=== PATIENT | male | born 1955 | race Caucasian/White ===

== ENCOUNTER → 2017-10-15 14:46 | Outpatient (CLI) | payer OTHER, MEDICAID, SELFPAY ==
--- NOTE | 2017-10-15 | DI.RAD.S_ITS ---
PROCEDURE: XR LUMBAR SPINE 2-3V INDICATIONS: MALIGNANT NEOPLASM OF LUNG, BACK PAIN TECHNIQUE: 3 views of the lumbar spine were acquired. COMPARISON: [facility], , -SPINE 2-3 VIEWS, 02/16/2017, 12:50. FINDINGS: Bones: 5 [id number] vertebrae are present. There is trace retrolisthesis of L1 on L2, L2 on L3, L3 on L4, L4 and L5 and L5 on S1. No vertebral body compression fractures. No suspicious bony lesions. Multilevel mild to moderate disc space narrowing is present. Prominent foraminal narrowing is present at L2-3 and L5-S1, minimally progressive compared to prior exam. Soft tissues: Overlying bowel gas pattern is normal. No suspicious soft tissue calcifications. IMPRESSION: Degenerative changes most prominent at L5-S1 as above. No visualized osseous metastatic disease. Dictated by: Alexandra Cast M.D. on 10/15/2017 at 16:47 Approved by: Alexandra Cast M.D. on 10/15/2017 at 16:49
--- NOTE | 2017-10-15 | DI.RAD.S_ITS ---
PROCEDURE: XR CHEST 2V INDICATIONS: MALIGNANT NEOPLASM OF LUNG, BACK PAIN TECHNIQUE: 2 views of the chest were acquired. COMPARISON: [facility], [place], [place] PET CT FUSION SKULL 2 THIGH, 09/29/2017, 15:50. [facility], CT, CHEST/ABD/PEL WITH CONTRAST, 06/25/2017, 11:57. [facility], CR, XR CHEST 2V, 08/04/2017, 15:19. FINDINGS: Surgical changes and devices: Left Port-A-Cath as well as cervical fixation hardware is present. Lungs and pleura: Bilateral chronic interstitial changes are present. There is persistent appearance of focal right upper lobe opacity, unchanged. Mediastinum: Mediastinal contours are normal. Heart size is normal. Bones and chest wall: No suspicious bony abnormalities. Soft tissues appear unremarkable. IMPRESSION: Stable interval exam demonstrating chronic interstitial changes. Dictated by: Alexandra Cast M.D. on 10/15/2017 at 16:46 Approved by: Alexandra Cast M.D. on 10/15/2017 at 16:47
== END ==
PROVIDERS: Visit Provider Nurse Practitioner Gerontology
DX: C34.90 Malignant neoplasm of unspecified part of unspecified bronchus or lung (principal); M54.9 Dorsalgia, unspecified
CPT/HCPCS: 71046; 72100

== ENCOUNTER → 2017-11-15 14:41 | Outpatient (CLI) | payer OTHER, MEDICAID, SELFPAY ==
--- NOTE | 2017-11-24 16:05 | PC.NURSE ---
SO called stating pt needs refill on his synthroid. Preferred pharm is [facility] and set up for escribe.
== END ==
PROVIDERS: Visit Provider Nurse Practitioner Gerontology
DX: C79.51 Secondary malignant neoplasm of bone (principal); C80.1 Malignant (primary) neoplasm, unspecified; M85.851 Other specified disorders of bone density and structure, right thigh; E07.9 Disorder of thyroid, unspecified; F17.210 Nicotine dependence, cigarettes, uncomplicated; Z85.118 Personal history of other malignant neoplasm of bronchus and lung
CPT/HCPCS: 77080

== ENCOUNTER → 2017-12-30 12:09 | Outpatient (CLI) | payer OTHER, MEDICAID, SELFPAY ==
--- NOTE | 2017-12-30 12:13 | DI.RAD.S_ITS ---
PROCEDURE: XR HIP W PEL IF DONE RT 2V INDICATIONS: pain TECHNIQUE: AP pelvis with lateral view(s) of the right hip(s). COMPARISON: [facility], CT, CHEST/ABD/PEL WITH CONTRAST, 06/25/2017, 11:57. FINDINGS: Bones: No fractures or dislocations. Pelvic ring appears intact. No suspicious bony lesions. Bilateral moderate degeneration. There is prominent bilateral hip spurring. Lower lumbar spine discogenic changes. Soft tissues: The visualized bowel gas pattern is normal. No suspicious soft tissue calcifications. IMPRESSION: Moderate bilateral hip joint degeneration. Dictated by: Esau Kidd M.D. on 12/30/2017 at 12:53 Approved by: Esau Kidd M.D. on 12/30/2017 at 12:55
--- NOTE | 2017-12-30 12:13 | DI.RAD.S_ITS ---
PROCEDURE: XR CHEST 2V INDICATIONS: pain TECHNIQUE: 2 views of the chest were acquired. COMPARISON: [facility], CR, XR CHEST 2V, 10/15/2017, 14:31. FINDINGS: Surgical changes and devices: Left chest port is unchanged the tip projecting at the upper SVC. Cervical spine fixation hardware Lungs and pleura: No pleural effusions or pneumothorax. Redemonstration of right upper lobe consolidation, with grossly unchanged appearance of 10/15/17. No definite new focal consolidations seen. There is right lung architectural distortion and volume loss as before. No pleural effusion. No pneumothorax. Mediastinum: Mediastinal contours are normal. Heart size is normal. Bones and chest wall: Multiple left rib fractures as before. No suspicious bony abnormalities. Soft tissues appear unremarkable. IMPRESSION: Overall, grossly unchanged examination since 10/15/17 . No new consolidation. Dictated by: Esau Kidd M.D. on 12/30/2017 at 12:51 Approved by: Esau Kidd M.D. on 12/30/2017 at 12:53
== END ==
PROVIDERS: Visit Provider Internal Medicine Hematology & Oncology
DX: M16.0 Bilateral primary osteoarthritis of hip (principal); R07.9 Chest pain, unspecified; S22.42XD Multiple fractures of ribs, left side, subsequent encounter for fracture with routine healing
CPT/HCPCS: 71046; 73502

== ENCOUNTER 2018-01-11 10:06 | Inpatient (IN) | payer OTHER, MEDICAID, SELFPAY ==
[2018-01-11] VITALS (15 sets, daily range): BP systolic 97–131; BP diastolic 43–79; PULSE 58–100; RESP 9–29; TEMP 36.7–36.9; O2SAT 95–99; BMI 17.8
--- NOTE | 2018-01-11 10:10 | ED.SOB ---
HPI - SOB/Dyspnea General Chief Complaint: Shortness of Breath/Dyspnea Stated Complaint: SOB Time Seen by Provider: 01/11/18 10:10 Source: patient, family, EMS, RN notes reviewed and old records reviewed Mode of arrival: EMS Limitations: no limitations History of Present Illness Patient is a 62-year-old male with known unresectable right lung adenocarcinoma currently being treated with immunotherapy have. He presents today with increasing shortness of breath. His states that he has had a productive cough for about the last 5 days and increasing weakness. EMS arrived he had decreasing oxygen levels and 80%. The 25 min EMS ride how he received a constant albuterol treatment by the time he arrived to the emergency department he is overall feeling, however still weak. He is holding can't get warm he denies fever MD Complaint: cough Related Data Home Medications Medication Instructions Recorded Confirmed magnesium oxide 400 mg PO QDAY #0 12/04/15 01/11/18 hydroxyzine HCl 25 - 50 mg PO Q6H PRN 08/20/17 01/11/18 Previous Rx's Medication Instructions Recorded ipratropium-albuterol [Combivent 1 puff INH Q6HP PRN #1 inh 04/13/16 Respimat] [DISABLED PARKING ] 1 ea X1 #1 ea 04/29/16 polyethylene glycol 3350 [Miralax] 17 gm PO QDAY #30 packet 06/10/16 lactulose 20 gm PO QDAY #200 ml 01/25/17 acetaminophen 650 mg PO Q8H #30 tab 02/16/17 esomeprazole magnesium 20 mg PO QDAY #30 cap 06/25/17 citalopram [Celexa] 20 mg PO DAILY #90 tab 10/29/17 pregabalin [Lyrica] 50 mg PO TID #90 cap 10/29/17 morphine [MS Contin] 60 mg PO Q12H #60 tab 11/18/17 albuterol sulfate [Ventolin HFA] 1 puff INH Q6H #8 gm 11/25/17 levothyroxine [Synthroid] 125 mcg PO DAILY #90 tab 11/25/17 Allergies Allergy/AdvReac Type Severity Reaction Status Date / Time aspirin [ASPIRIN] AdvReac Mild NAUSEA Unverified 07/14/17 12:15 Review of Systems Review of Systems All systems reviewed & are unremarkable except as noted in HPI and below Constitutional Reports body ache(s), Reports fatigue, Denies fever(s) and Reports weakness Eyes Denies change in vision, Denies eye discharge, Denies irritation and Denies loss of vision ENT Ears, Nose, Mouth, and Throat: Denies change in voice, Denies neck pain and Denies sore throat Cardiovascular Denies chest pain, Denies irregular heart rhythm, Denies lightheadedness, Denies palpitations, Denies dyspnea, Denies dyspnea on exertion and Denies orthopnea Respiratory Denies cough, Denies dyspnea, Denies dyspnea on exertion and Denies wheezing Musculoskeletal Denies neck pain Neurologic Denies loss of vision and Reports weakness Endocrine Reports fatigue and Denies palpitations Allergic/Immunologic Denies wheezing PFSH Medical History DVT of upper extremity (deep vein thrombosis) (Acute) Hypothyroid (Acute) Lung cancer, primary, with metastasis from lung to other site (Acute) Social History Smoking Status: Current every day smoker Exam Initial Vital Signs Initial Vital Signs: Vital Signs Temperature 98.3 F 01/11/18 10:16 Pulse Rate 100 H 01/11/18 10:16 Respiratory Rate 29 H 01/11/18 10:16 Blood Pressure 101/62 01/11/18 10:16 Pulse Oximetry 98 01/11/18 10:16 Const General: ill appearing (chronic) Nutritional Appearance: cachectic Orientation: alert, awake and oriented x3 HENMT Head: normal to inspection and normocephalic Ears: hearing grossly normal bilaterally Eyes General: appearance normal, both eyes and all related structures Neck Neck: normal visual inspection, full ROM and no meningeal signs Chest Chest: normal inspection of the chest Resp Effort & Inspection: normal respiratory effort, able to speak in complete sentences and not labored Auscultation: clear to auscultation bilaterally, diminished lung sounds on the right in the upper lung monte and wheezes scattered wheezes Cardio Rate: regular rate Rhythm: regular rhythm Heart Sounds: no click, no gallops, no murmurs and no rubs Pulses: normal peripheral pulses GI Inspection: non-distended Palpation: soft, no hepatosplenomegaly, No guarding, No pulsatile mass and No tender Auscultation: normal bowel sounds Skin General: no rashes or lesions noted, No jaundice and No petechiae Neuro General: alert, oriented x3, gait normal and no focal motor deficits Speech: speech normal Course Orders Ordered: ED Orders 01/11/18 10:13 CT angio chest PE protocol Stat EKG-12 Lead Stat 01/11/18 10:14 Lactate (Lactic Acid) Stat 01/11/18 10:40 Complete Blood Count AUTO DIFF Stat Comprehensive Metabolic Panel Stat Partial Thromboplastin Time Stat Prothrombin Time INR Stat Troponin & CK Cardiac Panel Stat 01/11/18 10:50 Blood Culture Stat Sodium Chloride (Normal Saline 0.9%) 1,000 mls @ 200 mls/hr IV CONT RENO Last Infusion: 01/11/18 12:42 Dose: 0 mls/hr Admin: 01/11/18 10:49 Dose: 200 mls/hr Levofloxacin (Levaquin) 750 mg in 150 mls @ 100 mls/hr IV NOW ONE Stop: 01/11/18 13:44 Last Admin: 01/11/18 12:42 Dose: 100 mls/hr Sodium Chloride (Normal Saline 0.9%) 1,000 mls @ 1,000 mls/hr IV BOLUS ONE Stop: 01/11/18 13:37 Last Admin: 01/11/18 12:42 Dose: 1,000 mls/hr Discontinued Medications Albuterol/Ipratropium (Duoneb) 3 ml INH NOW ONE Stop: 01/11/18 10:14 Last Admin: 01/11/18 10:40 Dose: 3 ml Methylprednisolone (Solu-Medrol 125 Mg Vial) 125 mg IV NOW ONE Stop: 01/11/18 10:14 Last Admin: 01/11/18 10:49 Dose: 125 mg Morphine Sulfate (Morphine) 2 mg IV NOW ONE Stop: 01/11/18 12:39 Last Admin: 01/11/18 12:42 Dose: 2 mg Vital Signs - 8 hr 01/11/18 10:16 01/11/18 10:40 01/11/18 10:53 Temperature 98.3 F Pulse Rate 100 H 85 82 Respiratory Rate 29 H 21 26 H Blood Pressure 101/62 Blood Pressure [Right Arm] 101/62 Pulse Oximetry 98 99 97 01/11/18 11:32 01/11/18 12:00 01/11/18 12:33 Temperature Pulse Rate 82 80 79 Respiratory Rate 22 11 L Blood Pressure Blood Pressure [Right Arm] 100/52 L 97/48 L 101/43 L Pulse Oximetry 98 96 01/11/18 12:34 Temperature Pulse Rate 86 Respiratory Rate 9 L Blood Pressure Blood Pressure [Right Arm] 101/43 L Pulse Oximetry 97 MDM - SOB/Dyspnea Lab Data Attestation: I reviewed the patient's lab results. Result diagrams: 01/11/18 10:40 01/11/18 10:40 Lab Results 01/11/18 01/11/18 01/11/18 Range/Units 10:14 10:40 10:40 WBC (4.5-11.0) X10^3/uL RBC (4.5-5.9) X10^6/uL Hgb (13.5-17.5) g/dL Hct (41-53) % MCV (80-100) fL MCH (26-34) PG MCHC (30-36) % RDW (11.6-14.8) % Plt Count (150-400) X10^3/uL Neut % (Auto) (50-75) % Lymph % (Auto) (25-40) % [place] % (Auto) (3-14) % Eos % (Auto) (2-4) % Baso % (Auto) (0-2) % Neut # (Auto) (7067-7462) /uL PT 14.3 H (10.1-12.7) SECONDS INR 1.3 (0.9-1.3) APTT 29 (26.4-36.2) SECONDS Sodium 137 (137-145) mmol/L Potassium 3.5 (3.4-5.1) mmol/L Chloride 100 (98-107) mmol/L Carbon Dioxide 29 (22-32) mmol/L BUN 13 (9-20) mg/dL Creatinine 0.80 (0.66-1.25) mg/dL Estimated GFR > 60.0 (>60) mL/min BUN/Creatinine Ratio 16.3 (6-22) Glucose 113 H (80-110) mg/dL Lactate 2.2 H (0.7-2.1) mmol/L Calcium 8.3 L (8.4-10.2) mg/dL Total Bilirubin 0.7 (0.2-1.3) mg/dL AST 44 (17-59) IU/L ALT 45 (21-72) IU/L Alkaline Phosphatase 156 H (38-126) U/L Total Creatine Kinase < 20 L (55-170) U/L CK-MB (CK-2) TNP CK-MB (CK-2) Rel Index TNP Troponin I < 0.012 (0.01-0.034) ng/mL Total Protein 6.4 (6.3-8.2) g/dL Albumin 2.9 L (3.5-5.0) g/dL Globulin 3.5 (1.7-4.1) g/dL Albumin/Globulin Ratio 0.8 L (1.0-2.8) 01/11/18 Range/Units 10:40 WBC 7.9 (4.5-11.0) X10^3/uL RBC 4.19 L (4.5-5.9) X10^6/uL Hgb 11.9 L (13.5-17.5) g/dL Hct 36.0 L (41-53) % MCV 86.0 (80-100) fL MCH 28.5 (26-34) PG MCHC 33.2 (30-36) % RDW 14.4 (11.6-14.8) % Plt Count 559 H (150-400) X10^3/uL Neut % (Auto) 84.3 H (50-75) % Lymph % (Auto) 12.0 L (25-40) % [place] % (Auto) 3.2 (3-14) % Eos % (Auto) 0.2 L (2-4) % Baso % (Auto) 0.3 (0-2) % Neut # (Auto) 6600 H (0278-0362) /uL PT (10.1-12.7) SECONDS INR (0.9-1.3) APTT (26.4-36.2) SECONDS Sodium (137-145) mmol/L Potassium (3.4-5.1) mmol/L Chloride (98-107) mmol/L Carbon Dioxide (22-32) mmol/L BUN (9-20) mg/dL Creatinine (0.66-1.25) mg/dL Estimated GFR (>60) mL/min BUN/Creatinine Ratio (6-22) Glucose (80-110) mg/dL Lactate (0.7-2.1) mmol/L Calcium (8.4-10.2) mg/dL Total Bilirubin (0.2-1.3) mg/dL AST (17-59) IU/L ALT (21-72) IU/L Alkaline Phosphatase (38-126) U/L Total Creatine Kinase (55-170) U/L CK-MB (CK-2) CK-MB (CK-2) Rel Index Troponin I (0.01-0.034) ng/mL Total Protein (6.3-8.2) g/dL Albumin (3.5-5.0) g/dL Globulin (1.7-4.1) g/dL Albumin/Globulin Ratio (1.0-2.8) Imaging Data ct angio pe: Radiologist's impression: PROCEDURE: CT ANGIO CHEST PE PROTOCOL INDICATIONS: SOB with lung cancer TECHNIQUE: After the administration of intravenous contrast, 2 mm thick sections acquired from the pulmonary apices to the posterior costophrenic angles. 3-dimensional maximum intensity projection (MIP) coronal and sagittal reformats were then acquired through the thorax. For radiation dose reduction, the following was used: automated exposure control, adjustment of mA and/or kV according to patient size. COMPARISON: [facility], CT, CHEST/ABD/PEL WITH CONTRAST, 06/25/2017, 11:57. [place], [place], [place] PET CT FUSION SKULL 2 THIGH, 09/29/2017, 15:50. FINDINGS: Image quality: Excellent. Pulmonary arteries: Pulmonary arteries demonstrate no intraluminal filling defects to suggest central pulmonary embolism. Mild enlargement of main pulmonary artery is seen and measures up to 3.4 cm in diameter which may represent mild pulmonary vascular hypertension. Lungs and pleura: Compared to previous CT study of the chest abdomen and pelvis, there is interval development of large cavitary space occupying nearly entire right upper lobe with air-fluid level in internal and nodular densities measures up to 2.1 x 1.5 cm in size. Adjacent scarring/atelectasis in right lung is seen. Ill-defined air space consolidations are noted in posterior aspect of bilateral lower lobe suspicious for patchy infiltrate/atelectasis. Emphysematous changes in bilateral lung monte are seen. Central and left peripheral airways are patent. Right middle and lower lobe airway is patent. Narrowing of right upper lobe bronchus distally is noted with internal soft tissue density in its dependent portion which may represent inflammatory debris versus malignant mass in distal right upper lobe bronchus and postobstructive atelectasis of right upper lobe. No pleural effusion or pneumothorax is seen. 7 mm nodular density adjacent to lateral pleura of the right lower lobe posterior to major fissure is seen series 5 image 48. Mediastinum: Heart size is no enlarged rmal, without pericardial effusion. There is subcarinal and right hilar adenopathy measures up to 1.4 cm in short axis diameter in the right hilar region and 1.8 cm in short axis diameter in subcarinal space. Mediastinal shift to the right is seen. Thoracic aorta is normal in caliber and enhancement. Esophagus is normal in caliber, with a moderate-sized hiatal hernia. Bones and chest wall: Mottled appearance of right posterior fifth rib is seen suggestive of metastatic disease involving fifth rib. Subacute to chronic appearing fracture involving right posterior sixth rib and right posterior lateral seventh rib are noted, which may represent pathologic fracture. Ribs and thoracic spine appear intact throughout. Thyroid gland is within normal limits. No axillary or supraclavicular adenopathy. Abdomen: Visualized upper abdominal solid organs appear normal in the early arterial phase of enhancement. 5.2 x 3.9 cm right renal cyst is seen, grossly unchanged from previous study. IMPRESSION: 1. No evidence of pulmonary emboli. No thoracic aortic aneurysm or gross dissection. A mildly enlarged main pulmonary trunk, which may represent mild pulmonary vascular hypertension. 2. Interval development of large cavitary space occupying nearly entire right upper lobe with internal soft tissue density nodule and air-fluid level. Malignant process is suspected given patient's history. 3. Additional air space opacity scattered in the posterior aspect of bilateral lower lobes more prominent on the left side suggestive of patchy infiltrate/atelectasis. No pleural effusion or pneumothorax. 4. There is narrowing of mid to distal right upper lobe bronchus with internal soft tissue density which may represent inflammatory material versus malignancy within the airway causing post obstructive atelectasis of right upper lobe. Rest of the airways are patent. 5. Emphysematous changes in bilateral lung monte. Nonspecific 7 mm nodular density adjacent to lateral pleura of the right lower lobe. 6. Enlarged mediastinal and right hilar lymph nodes suggestive of metastatic adenopathy. 7, metastatic disease involving right posterior fifth rib and possibly sixth and seventh ribs with possible pathologic fractures involving right posterior lateral sixth and seventh ribs. Dictated by: Ari Michael M.D. on 01/11/2018 at 11:32 ECG Data Attestation: I personally reviewed and interpreted this ECG as follows: Prior ECG tracings: available for review Interpretation: Sinus arrhythmia rate [address] changes no T-wave inversions similar to previous EKG MDM Narrative Medical decision making narrative: Patient has low blood pressure was slightly elevated lactic acid of 2.2. He does have a history of orthostatic hypotension and his a previous documents suggesting do not have enough intake. He overall feels weak and lethargic. CT does suggest possible lower pneumonia. He has not needed oxygen is since he has been here he has only received 1 albuterol treatment but did receive quite a bit with EMS. Patient remains a full code at this time Dr. Mejias updated patient's symptoms test results and agrees with inpatient. Discharge Plan Departure Patient Disposition: Admitted As Inpatient Clinical Impression: Pneumonia Admit Date/Time: 01/11/18 12:31 Admit Provider: Ema Mejias
--- NOTE | 2018-01-11 10:13 | DI.CT.S_ITS ---
PROCEDURE: CT ANGIO CHEST PE PROTOCOL INDICATIONS: SOB with lung cancer TECHNIQUE: After the administration of intravenous contrast, 2 mm thick sections acquired from the pulmonary apices to the posterior costophrenic angles. 3-dimensional maximum intensity projection (MIP) coronal and sagittal reformats were then acquired through the thorax. For radiation dose reduction, the following was used: automated exposure control, adjustment of mA and/or kV according to patient size. COMPARISON: [facility], CT, CHEST/ABD/PEL WITH CONTRAST, 06/25/2017, 11:57. [facility], [place], [place] PET CT FUSION SKULL 2 THIGH, 09/29/2017, 15:50. FINDINGS: Image quality: Excellent. Pulmonary arteries: Pulmonary arteries demonstrate no intraluminal filling defects to suggest central pulmonary embolism. Mild enlargement of main pulmonary artery is seen and measures up to 3.4 cm in diameter which may represent mild pulmonary vascular hypertension. Lungs and pleura: Compared to previous CT study of the chest abdomen and pelvis, there is interval development of large cavitary space occupying nearly entire right upper lobe with air-fluid level in internal and nodular densities measures up to 2.1 x 1.5 cm in size. Adjacent scarring/atelectasis in right lung is seen. Ill-defined air space consolidations are noted in posterior aspect of bilateral lower lobe suspicious for patchy infiltrate/atelectasis. Emphysematous changes in bilateral lung monte are seen. Central and left peripheral airways are patent. Right middle and lower lobe airway is patent. Narrowing of right upper lobe bronchus distally is noted with internal soft tissue density in its dependent portion which may represent inflammatory debris versus malignant mass in distal right upper lobe bronchus and postobstructive atelectasis of right upper lobe. No pleural effusion or pneumothorax is seen. 7 mm nodular density adjacent to lateral pleura of the right lower lobe posterior to major fissure is seen series 5 image 48. Mediastinum: Heart size is no enlarged rmal, without pericardial effusion. There is subcarinal and right hilar adenopathy measures up to 1.4 cm in short axis diameter in the right hilar region and 1.8 cm in short axis diameter in subcarinal space. Mediastinal shift to the right is seen. Thoracic aorta is normal in caliber and enhancement. Esophagus is normal in caliber, with a moderate-sized hiatal hernia. Bones and chest wall: Mottled appearance of right posterior fifth rib is seen suggestive of metastatic disease involving fifth rib. Subacute to chronic appearing fracture involving right posterior sixth rib and right posterior lateral seventh rib are noted, which may represent pathologic fracture. Ribs and thoracic spine appear intact throughout. Thyroid gland is within normal limits. No axillary or supraclavicular adenopathy. Abdomen: Visualized upper abdominal solid organs appear normal in the early arterial phase of enhancement. 5.2 x 3.9 cm right renal cyst is seen, grossly unchanged from previous study. IMPRESSION: 1. No evidence of pulmonary emboli. No thoracic aortic aneurysm or gross dissection. A mildly enlarged main pulmonary trunk, which may represent mild pulmonary vascular hypertension. 2. Interval development of large cavitary space occupying nearly entire right upper lobe with internal soft tissue density nodule and air-fluid level. Malignant process is suspected given patient's history. 3. Additional air space opacity scattered in the posterior aspect of bilateral lower lobes more prominent on the left side suggestive of patchy infiltrate/atelectasis. No pleural effusion or pneumothorax. 4. There is narrowing of mid to distal right upper lobe bronchus with internal soft tissue density which may represent inflammatory material versus malignancy within the airway causing post obstructive atelectasis of right upper lobe. Rest of the airways are patent. 5. Emphysematous changes in bilateral lung monte. Nonspecific 7 mm nodular density adjacent to lateral pleura of the right lower lobe. 6. Enlarged mediastinal and right hilar lymph nodes suggestive of metastatic adenopathy. 7, metastatic disease involving right posterior fifth rib and possibly sixth and seventh ribs with possible pathologic fractures involving right posterior lateral sixth and seventh ribs. Dictated by: Ari Michael M.D. on 01/11/2018 at 11:32 Approved by: Ari Michael M.D. on 01/11/2018 at 11:50
[2018-01-11] MEDS: ALBUTEROL/IPRATROPIUM 3 ML AMPUL INH ×2 (10:40→19:58)
[2018-01-11] MEDS: SODIUM CHLORIDE 0.9% 1,000 ML 200 ML IV (10:49)
[2018-01-11] MEDS: methylPREDNISolone 125 MG/2 ML VIAL IV (10:49)
--- NOTE | 2018-01-11 10:52 | PC.NURSE ---
easier respirations, lungs clear/ decreased left lower, after rt treatment
[2018-01-11 10:56] LABS: Add Manual Diff / Slide Review NO; Basophils Percent Auto 0.3 % (0-2); Eosinophils Percent Auto 0.2 % (2-4); Hemoglobin 11.9 g/dL (13.5-17.5); Mean Corpuscular HGB Conc 33.2 % (30-36); Mean Corpuscular Hemoglobin 28.5 PG (26-34); Monocytes Percent Auto 3.2 % (3-14); Neutrophils Absolute Auto 6600 /uL (3000-5900); Neutrophils Percent Auto 84.3 % (50-75); Platelet Count 559 X10^3/uL (150-400); Red Blood Cell Count 4.19 X10^6/uL (4.5-5.9); Red Cell Distribution Width 14.4 % (11.6-14.8); White Blood Cell Count 7.9 X10^3/uL (4.5-11.0)
[2018-01-11 11:01] LABS: INR 1.3 (0.9-1.3); Prothrombin Time 14.3 SECONDS (10.1-12.7)
[2018-01-11 11:04] LABS: PTT Partial Thromboplastin Tim 29 SECONDS (26.4-36.2)
[2018-01-11 11:06] LABS: Alanine Aminotransferase 45 IU/L (21-72); Albumin 2.9 g/dL (3.5-5.0); Albumin Globulin Ratio 0.8 (1.0-2.8); Alkaline Phosphatase 156 U/L (38-126); Aspartate Aminotransferase 44 IU/L (17-59); BUN Creatinine Ratio 16.3 (6-22); Bilirubin Total 0.7 mg/dL (0.2-1.3); Blood Urea Nitrogen 13 mg/dL (9-20); Calcium 8.3 mg/dL (8.4-10.2); Carbon Dioxide 29 mmol/L (22-32); Chloride 100 mmol/L (98-107); Creatine Kinase < 20 U/L (55-170); Estimated Glomerular Filt Rate > 60.0 mL/min (>60); Globulin 3.5 g/dL (1.7-4.1); Glucose 113 mg/dL (80-110); HEMOLYSIS < 15 (0-50); Potassium 3.5 mmol/L (3.4-5.1); Sodium 137 mmol/L (137-145); Total Protein 6.4 g/dL (6.3-8.2)
[2018-01-11 11:18] LABS: Troponin I < 0.012 ng/mL (0.01-0.034)
[2018-01-11 11:51] LABS: Lactate (Lactic Acid) 2.2 mmol/L (0.7-2.1)
[2018-01-11] MEDS: SODIUM CHLORIDE 0.9% 1,000 ML 1000 ML IV (12:42)
[2018-01-11] MEDS: levoFLOXacin 750 MG/150 ML PIGGYBACK 100 MG IV (12:42)
[2018-01-11] MEDS: MORPHINE 2 MG/ML INJ IV (12:42)
--- NOTE | 2018-01-11 15:36 | PC.NURSE ---
Admit: Late entry Arrived to room 231 approx 1415. Able to scoot himself from stretcher to bed. Indep with bed mobility. Reports some shortness of breath at rest. Does not appear in any distress, RR in the teens. SpO2 on RA 95-96%, cont pulse ox in place as ordered. Lungs CTA, dim throughout. Intermittent dry sounding cough. Reports chronic back pain and history of recent falls. Fall precautions in place. Urinal at bedside, instructed to call for assist if needing to get OOB. Oriented to room and call light, bed alarm on.
[2018-01-11 15:43] LABS: Reflexed Lactate in 2 Hours Y
[2018-01-11 16:31] LABS: Lactate 2HR (Lactic Acid Rflx) 1.7 mmol/L (0.7-2.1)
--- NOTE | 2018-01-11 17:00 | PM.HP.1 ---
History of Present Illness Date Patient Seen: 01/11/18 Chief complaint: SOB Narrative: On January 28, 2015 chest x-ray was performed to investigate his chest pain, and this showed a large right upper lobe mass measuring 6 cm. He was seen in the emergency department multiple times for chest pain since. CTA scan on April 01, 2015 showed 6 x 6.9 cm transverse mass lesion with erosion of the posterior right 3rd, 4th, and minimal 5th ribs. On April 17, 2015, patient underwent CT-guided right lung upper lobe mass and the pathology showed poorly differentiated carcinoma most consistent with adenocarcinoma involving the transverse process of T3 and T4. A 2nd CT-guided right upper lung mass biopsy was performed on May 23, 2015 that showed necrotic tissue with poorly differentiated features. It did not show any features to suggest mesothelioma. His lung cancer was staged T4b N0 M0 (stage IIIA). He was started on cisplatin 75 mg per sq meter and Alimta 500 mg per sq meter every 3 weeks with support of injection of vitamin B12 and Neulasta, on 05/13/2015, together with radiation. He completed 6 cycles of cisplatin/pemetrexed said on August 30, 2015. CT scan of the chest abdomen and pelvis on June 24, 2019 16 showed interval progression of posterior right upper lobe mass with adjacent rib destruction and multiple enlarged left cervical and left parapharyngeal lymphadenopathy without evidence of metastasis in the abdomen or pelvis. Patient therefore underwent biopsy of the left neck node which again showed very poorly differentiated carcinoma with the margins indeterminate. Subsequent molecular testing indicated a 90% probability of this being a lung primary. Patient underwent palliative radiotherapy to the neck lymph nodes. Molecular testing of his cancer has been negative for ALK, EGFR, and ROS1. On October 18, [address] scan of the abdomen and pelvis that showed interval development of large retrocrural mass presumably progressive metastatic lymphadenopathy since previous scan. Additional progression in size and number of sub city cm retroperitoneal lymph nodes were seen. On November 04, 2015 patient underwent thoracic spine CT scan that showed marked interval progression of multi focal paraspinal metastatic disease including new pathologic fracture at T7 and associated 20% anterior height vertebral body loss. He was then started on Nivolumab 11/06/2015. Patient has responded dramatically to nivolumab. On February 07, 2016, follow-up scans were performed. CT scan of the neck showed no suspicious adenopathy or abnormal enhancement in the neck. The metastatic lymph nodes in the left side of the neck and abnormal soft tissue in the left tonsillar fossa had resolved since previous imaging studies. CT scan of the chest abdomen and pelvis showed markedly abnormal posterior mediastinal mass had decreased in size without new adenopathy, the retrocrural abnormal soft tissue had markedly decreased in size. Most recent CT scan of the chest abdomen and pelvis were performed on June 25, 2017. Overall, stable examination without specific evidence of active metastatic disease. Unchanged right lung volume loss and posterior upper lung consolidation and presumed post therapeutic changes. Patient reports he became short of breath with coughing few days ago. He noted that last night he felt like he was drowning. He has had no fever. He does have intermittent chills. He has a cough with productive yellow phlegm. He has no hemoptysis. Patient has lost about 32 lb over the past 3 years. He was seen and evaluated in the emergency department. Patient was found to have a CT scan which showed the following: No evidence of pulmonary emboli. No thoracic aortic aneurysm or gross dissection. A mildly enlarged main pulmonary trunk, which may represent mild pulmonary vascular hypertension. 2. Interval development of large cavitary space occupying nearly entire right upper lobe with internal soft tissue density nodule and air-fluid level. Malignant process is suspected given patient's history. 3. Additional air space opacity scattered in the posterior aspect of bilateral lower lobes more prominent on the left side suggestive of patchy infiltrate/atelectasis. No pleural effusion or pneumothorax. 4. There is narrowing of mid to distal right upper lobe bronchus with internal soft tissue density which may represent inflammatory material versus malignancy within the airway causing post obstructive atelectasis of right upper lobe. Rest of the airways are patent. 5. Emphysematous changes in bilateral lung monte. Nonspecific 7 mm nodular density adjacent to lateral pleura of the right lower lobe. 6. Enlarged mediastinal and right hilar lymph nodes suggestive of metastatic adenopathy. 7, metastatic disease involving right posterior fifth rib and possibly sixth and seventh ribs with possible pathologic fractures involving right posterior lateral sixth and seventh ribs. Patient is admitted for treatment of pneumonia, respiratory failure, copd Patient History Medical History DVT of upper extremity (deep vein thrombosis) (Acute) Hypothyroid (Acute) Lung cancer, primary, with metastasis from lung to other site (Acute) Family & Social History Family History: Reviewed 01/11/18 by Ema Mejias MD Social History: household members family,caregiver Safety & Behavioral: Feels Safe in Current Yes Environment Been Physically Hurt or No Threatened By a Person Suicidal Ideation Description None Suicide Plan Description No Plan Tobacco & Substance use: Tobacco type cigarettes Smoking Status Current every day smoker alcohol intake never Substance Use Type does not use Meds Home Medications Medication Instructions Recorded Confirmed Type magnesium oxide 400 mg PO QDAY #0 12/04/15 01/11/18 History ipratropium-albuterol [Combivent 1 puff INH Q6HP PRN #1 inh 04/13/16 01/11/18 Rx Respimat] [DISABLED PARKING ] 1 ea X1 #1 ea 04/29/16 01/11/18 Rx polyethylene glycol 3350 [Miralax] 17 gm PO QDAY #30 packet 06/10/16 01/11/18 Rx lactulose 20 gm PO QDAY #200 ml 01/25/17 01/11/18 Rx acetaminophen 650 mg PO Q8H #30 tab 02/16/17 01/11/18 Rx esomeprazole magnesium 20 mg PO QDAY #30 cap 06/25/17 01/11/18 Rx hydroxyzine HCl 25 - 50 mg PO Q6H PRN 08/20/17 01/11/18 History citalopram [Celexa] 20 mg PO DAILY #90 tab 10/29/17 01/11/18 Rx pregabalin [Lyrica] 50 mg PO TID #90 cap 10/29/17 01/11/18 Rx morphine [MS Contin] 60 mg PO Q12H #60 tab 11/18/17 01/11/18 Rx albuterol sulfate [Ventolin HFA] 1 puff INH Q6H #8 gm 11/25/17 01/11/18 Rx levothyroxine [Synthroid] 125 mcg PO DAILY #90 tab 11/25/17 01/11/18 Rx Allergies Allergy/AdvReac Type Severity Reaction Status Date / Time aspirin [ASPIRIN] AdvReac Mild NAUSEA Unverified 07/14/17 12:15 Review of Systems Review of Systems All systems reviewed & are unremarkable except as noted in HPI and below and other (Headache, bones ache, no chest pain or palpitations.) Exam Vital Signs (past 8 hours): - 01/11/18 10:16 01/11/18 10:40 01/11/18 10:53 Temperature 98.3 F Pulse Rate 100 H 85 82 Respiratory Rate 29 H 21 26 H Blood Pressure 101/62 Blood Pressure [Right Arm] 101/62 Pulse Oximetry 98 99 97 01/11/18 11:32 01/11/18 12:00 01/11/18 12:33 Temperature Pulse Rate 82 80 79 Respiratory Rate 22 11 L Blood Pressure Blood Pressure [Right Arm] 100/52 L 97/48 L 101/43 L Pulse Oximetry 98 96 01/11/18 12:34 01/11/18 13:00 01/11/18 14:34 Temperature 98.1 F Pulse Rate 86 78 77 Respiratory Rate 9 L 15 16 Blood Pressure 120/63 Blood Pressure [Right Arm] 101/43 L 125/63 Pulse Oximetry 97 95 98 01/11/18 15:00 01/11/18 16:02 Temperature 98.4 F Pulse Rate 70 Respiratory Rate 16 Blood Pressure 122/71 Blood Pressure [Right Arm] Pulse Oximetry 95 98 Oxygen Delivery Method Room Air Oxygen Flow Rate 0 Narrative Exam Narrative: ill appearing male HEENT: NC/ AT EOMI, Oropharynx clear Neck: Left superior clavicular firm lymphnode palpated Lungs: Decreased breath sounds bilaterally CV: RRR nl Sl S2 Abd: soft/ non tender/ non distended/non hsm Ext: no edema Neuro: non focal Objective Labs Result Diagrams: 01/11/18 10:40 01/11/18 10:40 Labs: Laboratory Results - last 24 hr 01/11/18 01/11/18 01/11/18 10:14 10:40 10:40 WBC RBC Hgb Hct MCV MCH MCHC RDW Plt Count Neut % (Auto) Lymph % (Auto) [place] % (Auto) Eos % (Auto) Baso % (Auto) Neut # (Auto) PT 14.3 H INR 1.3 APTT 29 Sodium 137 Potassium 3.5 Chloride 100 Carbon Dioxide 29 BUN 13 Creatinine 0.80 Estimated GFR > 60.0 BUN/Creatinine Ratio 16.3 Glucose 113 H Lactate 2.2 H Calcium 8.3 L Total Bilirubin 0.7 AST 44 ALT 45 Alkaline Phosphatase 156 H Total Creatine Kinase < 20 L CK-MB (CK-2) TNP CK-MB (CK-2) Rel Index TNP Troponin I < 0.012 Total Protein 6.4 Albumin 2.9 L Globulin 3.5 Albumin/Globulin Ratio 0.8 L 01/11/18 01/11/18 10:40 16:11 WBC 7.9 RBC 4.19 L Hgb 11.9 L Hct 36.0 L MCV 86.0 MCH 28.5 MCHC 33.2 RDW 14.4 Plt Count 559 H Neut % (Auto) 84.3 H Lymph % (Auto) 12.0 L [place] % (Auto) 3.2 Eos % (Auto) 0.2 L Baso % (Auto) 0.3 Neut # (Auto) 6600 H PT INR APTT Sodium Potassium Chloride Carbon Dioxide BUN Creatinine Estimated GFR BUN/Creatinine Ratio Glucose Lactate 1.7 Calcium Total Bilirubin AST ALT Alkaline Phosphatase Total Creatine Kinase CK-MB (CK-2) CK-MB (CK-2) Rel Index Troponin I Total Protein Albumin Globulin Albumin/Globulin Ratio Assessment & Plan (1) Acute respiratory failure: Problem details: Upon arrival to his home medics found the patient to have a room air saturation of 80% which improved in the ED after several nebulizer treatments Will continue duonebs, oxygen, steroids, and antibiotics Current visit: Yes Status: Acute (2) Lung cancer, primary, with metastasis from lung to other site: Problem details: Suspect the patient may have bronchial obstruction from tumor. Will consult Pulmonary as patient may require bronchoscopy Qualifiers: Laterality: Current visit: No Status: Acute (3) Pain: Problem details: Chronic pain, will continue MS contin plus prn pain medications Current visit: No Status: Acute (4) Severe sepsis: Problem details: 30cc/kg given, awaiting repeat lactate Zosyn/Levofloxacin Current visit: Yes Status: Acute (5) Pneumonia: Problem details: as above Suspect post obstructive pneumonia, may require bronchoscopy for definitive treatment Qualifiers: Aspiration pneumonia type: Laterality: bilateral Lung location: lower lobe of lung Pneumonia type: due to unspecified organism Qualified Code(s): J18.1 - Lobar pneumonia, unspecified organism Current visit: Yes Status: Acute
[2018-01-11] MEDS: OXYCODONE IR 10 MG TABLET PO (17:36)
[2018-01-11] MEDS: PIPERACILLIN-TAZO 3.375 GM/50 ML FROZ.PIGGY IV (17:37)
[2018-01-11] MEDS: DOCUSATE 100 MG CAPSULE PO (21:03)
[2018-01-11] MEDS: PREGABALIN 50 MG CAPSULE PO (21:03)
[2018-01-11] MEDS: MORPHINE ER 30 MG TABLET 60 MG PO (21:03)
[2018-01-11] MEDS: methylPREDNISolone 125 MG/2 ML VIAL 60 MG IV (21:04)
[2018-01-12] VITALS (13 sets, daily range): BP systolic 98–151; BP diastolic 55–74; PULSE 55–67; RESP 16–20; TEMP 36.2–36.8; O2SAT 92–99; BMI 17.8
[2018-01-12] MEDS: PIPERACILLIN-TAZO 3.375 GM/50 ML FROZ.PIGGY IV ×3 (01:31→18:12)
[2018-01-12] MEDS: OXYCODONE IR 10 MG TABLET PO ×3 (01:37→15:40)
[2018-01-12] MEDS: HYDROMORPHONE 1 MG INJ IV ×3 (02:20→21:48)
[2018-01-12] MEDS: ALBUTEROL/IPRATROPIUM 3 ML AMPUL INH ×3 (03:53→15:55)
[2018-01-12 05:25] LABS: Add Manual Diff / Slide Review NO; Basophils Percent Auto 0.1 % (0-2); Hematocrit 34.9 % (41-53); Hemoglobin 11.4 g/dL (13.5-17.5); Lymphocytes Percent Auto 4.3 % (25-40); Mean Corpuscular HGB Conc 32.7 % (30-36); Mean Corpuscular Hemoglobin 28.4 PG (26-34); Mean Corpuscular Volume 86.8 fL (80-100); Monocytes Percent Auto 1.4 % (3-14); Neutrophils Absolute Auto 11500 /uL (3000-5900); Neutrophils Percent Auto 94.2 % (50-75); Platelet Count 518 X10^3/uL (150-400); Red Blood Cell Count 4.02 X10^6/uL (4.5-5.9); Red Cell Distribution Width 14.2 % (11.6-14.8); White Blood Cell Count 12.2 X10^3/uL (4.5-11.0)
[2018-01-12 05:31] LABS: Alanine Aminotransferase 34 IU/L (21-72); Albumin 2.5 g/dL (3.5-5.0); Albumin Globulin Ratio 0.8 (1.0-2.8); Alkaline Phosphatase 114 U/L (38-126); Aspartate Aminotransferase 26 IU/L (17-59); BUN Creatinine Ratio 13.8 (6-22); Bilirubin Total 0.6 mg/dL (0.2-1.3); Blood Urea Nitrogen 11 mg/dL (9-20); Calcium 7.8 mg/dL (8.4-10.2); Carbon Dioxide 26 mmol/L (22-32); Chloride 104 mmol/L (98-107); Estimated Glomerular Filt Rate > 60.0 mL/min (>60); Globulin 3.2 g/dL (1.7-4.1); Glucose 135 mg/dL (80-110); HEMOLYSIS < 15 (0-50); Potassium 3.9 mmol/L (3.4-5.1); Sodium 138 mmol/L (137-145); Total Protein 5.7 g/dL (6.3-8.2)
[2018-01-12] MEDS: PANTOPRAZOLE 20 MG TABLET PO (05:46)
[2018-01-12] MEDS: LEVOTHYROXINE 125 MCG TABLET PO (05:46)
[2018-01-12] MEDS: methylPREDNISolone 125 MG/2 ML VIAL 60 MG IV ×3 (05:46→21:34)
[2018-01-12] MEDS: SODIUM CHLORIDE 0.9% 1,000 ML 200 ML IV (05:57)
--- NOTE | 2018-01-12 08:54 | CM.DANOTE ---
Addendum entered by Annabelle Coto LPN 01/12/18 10:23: Spoke with Dr. Mejias in Team Rounds. She plans to transfer pt for a higher level of pulmonology care. JOSH Price has called in to check on pt. She plans to reach out to pt's caregiver/girlfriend/DPOA to offer support and will see pt in hospital prn as is unclear at this point how long the transfer process will take. Original Note: Discharge Planning/Care Management DCP: assessment: case received, EMR reviewed and met with pt. Introduced self and role Pt is a 62 year old male admitted to care of hospitalist team. Is being treated for pneumonia, respiratory failure and COPD in setting of lung CA with mets. He is under oncology care at the [facility]/. Will be following as POC unfolds to assist with d/c needs. As noted in Template, have a vm into Dee/[employer] [facility]. Rachel De Guzman/[facility] has also followed pt with last documentation in December 2017. CM Discharge Assessment Start: 01/12/18 08:32 Freq: Status: Active Protocol: Document 01/12/18 08:33 ITV (Rec: 01/12/18 08:54 ITV [id number]) Discharge Planning Assessment Advance Directives? Yes: POL, will place in hard copy red file chart Advance Directives on File dated August 27: CPR Full Treatment/Medical Intervenitons History Provided By Medical Record Household Members family caregiver Comment lives with ex : Tomasa in her [place] home and with his DPOA caregiver Lakisha Cabral. Type of transporation used prior to Relies on Others admit Independent with ADL's No Is patient alert and oriented? Yes Caregiver for Another No Comment current with [facility]. Sees their social security assessor Dee Burrell/ vm is left for her ex [phone] to start a collaborative discussion re pt and what he might need at d/c DME Already Rented / Owned FWW / Walker Comment uses [employer] Whiteboard Updated in Patient Room with Yes name and ext. 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
[2018-01-12] MEDS: MORPHINE ER 30 MG TABLET 60 MG PO ×2 (09:16→20:21)
[2018-01-12] MEDS: CITALOPRAM 20 MG TABLET PO (09:17)
[2018-01-12] MEDS: ENOXAPARIN 40 MG/0.4 ML SYRINGE SUBCUT (09:18)
[2018-01-12] MEDS: PREGABALIN 50 MG CAPSULE PO ×3 (09:18→20:19)
[2018-01-12] MEDS: DOCUSATE 100 MG CAPSULE PO ×2 (09:18→20:19)
--- NOTE | 2018-01-12 10:44 | ONC.NAV ---
Description: Care Coordination visit-Inpatient Status Activity: Received a call from Annabelle in care management re: pt's admission and status. He is being transferred to another hospital that can further assess his pulmonary concerns and offer treatment that is not available at . This DRIER ATTENDANT met with pt to offer support. He was found to be alert, in good spirits, c/o worsening dyspnea as primary symptom which led to this hospitalization. Briefly explained to pt that the hospitalist team and floor coordinator were working on transferring him to another hospital. He expressed understanding, no additional needs identified at this time. Called pt's SO/caregiver, Lakisha, to offer support and left a brief message with the plan currently being arranged.
[2018-01-12] MEDS: levoFLOXacin 500 MG/100 ML PIGGYBACK 100 MG IV (12:05)
--- NOTE | 2018-01-12 12:46 | PM.PN.1 ---
Subjective Date Patient Seen: 01/12/18 Interval history: Overall he feels like his breathing has improved. Patient continues to have a productive cough. He no longer feels like he is drowning. Patient continues to have significant back pain which is not relieved by the current pain regimen. Exam Vital Signs (past 8 hours): - 01/12/18 05:23 01/12/18 07:45 01/12/18 07:55 Temperature 98.1 F Pulse Rate 64 Respiratory Rate 16 Blood Pressure 98/64 Pulse Oximetry 95 96 96 01/12/18 10:12 Temperature Pulse Rate 65 Respiratory Rate 18 Blood Pressure Pulse Oximetry 95 Fraction of Inspired Oxygen 21 Oxygen Delivery Method Room Air Oxygen Flow Rate 0 Narrative Exam Narrative: ill appearing male Lungs: decreased breath sounds with diffuse rhonchi bilaterally CV: RRR nl Sl S2 ABd: soft/ non tender/non distended Ext: no edema Objective Labs Result Diagrams: 01/12/18 04:57 01/12/18 04:57 Labs: Laboratory Results - last 24 hr 01/11/18 01/12/18 01/12/18 16:11 04:57 04:57 WBC 12.2 H D RBC 4.02 L Hgb 11.4 L Hct 34.9 L MCV 86.8 MCH 28.4 MCHC 32.7 RDW 14.2 Plt Count 518 H Neut % (Auto) 94.2 H Lymph % (Auto) 4.3 L [place] % (Auto) 1.4 L Eos % (Auto) 0.0 L Baso % (Auto) 0.1 Neut # (Auto) 83962 H Sodium 138 Potassium 3.9 Chloride 104 Carbon Dioxide 26 BUN 11 Creatinine 0.80 Estimated GFR > 60.0 BUN/Creatinine Ratio 13.8 Glucose 135 H Lactate 1.7 Calcium 7.8 L Total Bilirubin 0.6 AST 26 ALT 34 Alkaline Phosphatase 114 Total Protein 5.7 L Albumin 2.5 L Globulin 3.2 Albumin/Globulin Ratio 0.8 L Assessment & Plan (1) Severe sepsis: Problem details: 30cc/kg given, awaiting repeat lactate Zosyn/Levofloxacin Current visit: Yes Status: Acute (2) Acute respiratory failure: Problem details: Upon arrival to his home medics found the patient to have a room air saturation of 80% which improved in the ED after several nebulizer treatments Will continue duonebs, oxygen, steroids, and antibiotics Current visit: Yes Status: Acute (3) Lung cancer, primary, with metastasis from lung to other site: Problem details: Suspect the patient may have bronchial obstruction from tumor. Will consult Pulmonary as patient may require bronchoscopy. Will continue to look for Pulmonology for possible bronchoscopy Qualifiers: Laterality: Current visit: No Status: Acute (4) Pain: Problem details: Chronic pain, will continue MS contin plus prn pain medications Increased MS contin and decreased interval for dilaudid Current visit: No Status: Acute (5) Hypothyroidism: Problem details: continue usual medications Qualifiers: Hypothyroidism type: Current visit: No Status: Acute (6) Smoking: Problem details: Nicotine patch Current visit: No Status: Acute (7) Pneumonia: Problem details: as above Suspect post obstructive pneumonia, may require bronchoscopy for definitive treatment Continue antibiotics Qualifiers: Aspiration pneumonia type: Laterality: bilateral Lung location: lower lobe of lung Pneumonia type: due to unspecified organism Qualified Code(s): J18.1 - Lobar pneumonia, unspecified organism Current visit: Yes Status: Acute Plan: Assessment/Plan Narrative: Hopefully transfer today for bronchoscopy
--- NOTE | 2018-01-12 12:49 | P.PN_ITS ---
Subjective Date Patient Seen: 01/12/18 Interval history: Overall he feels like his breathing has improved. Patient continues to have a productive cough. He no longer feels like he is drowning. Patient continues to have significant back pain which is not relieved by the current pain regimen. Exam Vital Signs (past 8 hours): - 01/12/18 05:23 01/12/18 07:45 01/12/18 07:55 Temperature 98.1 F Pulse Rate 64 Respiratory Rate 16 Blood Pressure 98/64 Pulse Oximetry 95 96 96 01/12/18 10:12 Temperature Pulse Rate 65 Respiratory Rate 18 Blood Pressure Pulse Oximetry 95 Fraction of Inspired Oxygen 21 Oxygen Delivery Method Room Air Oxygen Flow Rate 0 Narrative Exam Narrative: ill appearing male Lungs: decreased breath sounds with diffuse rhonchi bilaterally CV: RRR nl Sl S2 ABd: soft/ non tender/non distended Ext: no edema Objective Labs Result Diagrams: 01/12/18 04:57 01/12/18 04:57 Labs: Laboratory Results - last 24 hr 01/11/18 01/12/18 01/12/18 16:11 04:57 04:57 WBC 12.2 H D RBC 4.02 L Hgb 11.4 L Hct 34.9 L MCV 86.8 MCH 28.4 MCHC 32.7 RDW 14.2 Plt Count 518 H Neut % (Auto) 94.2 H Lymph % (Auto) 4.3 L Real % (Auto) 1.4 L Eos % (Auto) 0.0 L Baso % (Auto) 0.1 Neut # (Auto) 56242 H Sodium 138 Potassium 3.9 Chloride 104 Carbon Dioxide 26 BUN 11 Creatinine 0.80 Estimated GFR > 60.0 BUN/Creatinine Ratio 13.8 Glucose 135 H Lactate 1.7 Calcium 7.8 L Total Bilirubin 0.6 AST 26 ALT 34 Alkaline Phosphatase 114 Total Protein 5.7 L Albumin 2.5 L Globulin 3.2 Albumin/Globulin Ratio 0.8 L Assessment & Plan (1) Severe sepsis: Problem details: 30cc/kg given, awaiting repeat lactate Zosyn/Levofloxacin Current visit: Yes Status: Acute (2) Acute respiratory failure: Problem details: Upon arrival to his home medics found the patient to have a room air saturation of 80% which improved in the ED after several nebulizer treatments Will continue duonebs, oxygen, steroids, and antibiotics Current visit: Yes Status: Acute (3) Lung cancer, primary, with metastasis from lung to other site: Problem details: Suspect the patient may have bronchial obstruction from tumor. Will consult Pulmonary as patient may require bronchoscopy. Will continue to look for Pulmonology for possible bronchoscopy Qualifiers: Laterality: Current visit: No Status: Acute (4) Pain: Problem details: Chronic pain, will continue MS contin plus prn pain medications Increased MS contin and decreased interval for dilaudid Current visit: No Status: Acute (5) Hypothyroidism: Problem details: continue usual medications Qualifiers: Hypothyroidism type: Current visit: No Status: Acute (6) Smoking: Problem details: Nicotine patch Current visit: No Status: Acute (7) Pneumonia: Problem details: as above Suspect post obstructive pneumonia, may require bronchoscopy for definitive treatment Continue antibiotics Qualifiers: Aspiration pneumonia type: Laterality: bilateral Lung location: lower lobe of lung Pneumonia type: due to unspecified organism Qualified Code( s): J18.1 - Lobar pneumonia, unspecified organism Current visit: Yes Status: Acute Plan: Assessment/Plan Narrative: Hopefully transfer today for bronchoscopy
[2018-01-12] MEDS: SODIUM CHLORIDE 0.9% 1,000 ML 84 ML IV ×2 (12:58→15:43)
[2018-01-12] MEDS: MORPHINE ER 15 MG TABLET PO (20:20)
[2018-01-13] VITALS (12 sets, daily range): BP systolic 89–126; BP diastolic 56–67; PULSE 50–82; RESP 15–18; TEMP 36.1–36.7; O2SAT 93–97
[2018-01-13] MEDS: HYDROMORPHONE 1 MG INJ IV ×2 (00:21→09:28)
[2018-01-13] MEDS: PIPERACILLIN-TAZO 3.375 GM/50 ML FROZ.PIGGY IV ×3 (01:23→16:30)
[2018-01-13] MEDS: SODIUM CHLORIDE 0.9% 1,000 ML 84 ML IV (03:50)
[2018-01-13 05:09] LABS: Add Manual Diff / Slide Review NO; Hematocrit 34.4 % (41-53); Hemoglobin 11.4 g/dL (13.5-17.5); Lymphocytes Percent Auto 3.5 % (25-40); Mean Corpuscular Hemoglobin 28.7 PG (26-34); Mean Corpuscular Volume 86.8 fL (80-100); Monocytes Percent Auto 1.7 % (3-14); Neutrophils Absolute Auto 16400 /uL (3000-5900); Neutrophils Percent Auto 94.8 % (50-75); Platelet Count 542 X10^3/uL (150-400); Red Blood Cell Count 3.96 X10^6/uL (4.5-5.9); Red Cell Distribution Width 14.6 % (11.6-14.8); White Blood Cell Count 17.3 X10^3/uL (4.5-11.0)
[2018-01-13 05:22] LABS: BUN Creatinine Ratio 18.8 (6-22); Blood Urea Nitrogen 15 mg/dL (9-20); Calcium 8.3 mg/dL (8.4-10.2); Carbon Dioxide 25 mmol/L (22-32); Chloride 106 mmol/L (98-107); Estimated Glomerular Filt Rate > 60.0 mL/min (>60); Glucose 113 mg/dL (80-110); HEMOLYSIS < 15 (0-50); Potassium 4.1 mmol/L (3.4-5.1); Sodium 139 mmol/L (137-145)
[2018-01-13] MEDS: ALBUTEROL/IPRATROPIUM 3 ML AMPUL INH ×3 (05:31→17:08)
[2018-01-13] MEDS: LEVOTHYROXINE 125 MCG TABLET PO (07:17)
[2018-01-13] MEDS: PANTOPRAZOLE 20 MG TABLET PO (07:17)
[2018-01-13] MEDS: methylPREDNISolone 125 MG/2 ML VIAL 60 MG IV (07:17)
[2018-01-13] MEDS: MORPHINE ER 15 MG TABLET PO ×2 (09:24→20:42)
[2018-01-13] MEDS: ENOXAPARIN 40 MG/0.4 ML SYRINGE SUBCUT (09:24)
[2018-01-13] MEDS: MORPHINE ER 30 MG TABLET 60 MG PO ×2 (09:26→20:41)
[2018-01-13] MEDS: PREGABALIN 50 MG CAPSULE PO ×3 (09:26→20:40)
[2018-01-13] MEDS: DOCUSATE 100 MG CAPSULE PO ×2 (09:27→20:40)
[2018-01-13] MEDS: CITALOPRAM 20 MG TABLET PO (09:27)
--- NOTE | 2018-01-13 11:54 | PM.PN.1 ---
Subjective Date Patient Seen: 01/13/18 Interval history: Patient still has a cough but feels he is getting better. Still with poor appetite Exam Vital Signs (past 8 hours): - 01/13/18 04:00 01/13/18 05:31 01/13/18 07:50 Temperature 97.0 F L 97.8 F Pulse Rate 50 L 58 L Respiratory Rate 18 15 Blood Pressure 126/67 118/65 Pulse Oximetry 94 96 93 01/13/18 11:04 Temperature Pulse Rate 54 L Respiratory Rate 16 Blood Pressure Pulse Oximetry 97 Fraction of Inspired Oxygen 21 Oxygen Delivery Method Room Air Oxygen Flow Rate 0 Narrative Exam Narrative: Awake and alert Lungs: decreased breath sounds bilaterally with occassional rhonchi CV: RRR nl S1 S@ ABD: Soft/ non tender Non distended Ext: no edema Objective Labs Result Diagrams: 01/13/18 04:43 01/13/18 04:43 Labs: Laboratory Results - last 24 hr 01/13/18 01/13/18 04:43 04:43 WBC 17.3 H RBC 3.96 L Hgb 11.4 L Hct 34.4 L MCV 86.8 MCH 28.7 MCHC 33.0 RDW 14.6 Plt Count 542 H Neut % (Auto) 94.8 H Lymph % (Auto) 3.5 L [place] % (Auto) 1.7 L Eos % (Auto) 0.0 L Baso % (Auto) 0.0 Neut # (Auto) 86817 H Sodium 139 Potassium 4.1 Chloride 106 Carbon Dioxide 25 BUN 15 Creatinine 0.80 Estimated GFR > 60.0 BUN/Creatinine Ratio 18.8 Glucose 113 H Calcium 8.3 L B-Natriuretic Peptide 481.0 H Assessment & Plan (1) Severe sepsis: Problem details: 30cc/kg given, awaiting repeat lactate Zosyn/Levofloxacin Sepsis resolved Current visit: Yes Status: Acute (2) Acute respiratory failure: Problem details: Upon arrival to his home medics found the patient to have a room air saturation of 80% which improved in the ED after several nebulizer treatments Will continue duonebs, oxygen, steroids, and antibiotics Change steroids to oral Current visit: Yes Status: Acute (3) Lung cancer, primary, with metastasis from lung to other site: Problem details: Suspect the patient may have bronchial obstruction from tumor. Will consult Pulmonary as patient may require bronchoscopy. Will continue to look for Pulmonology for possible bronchoscopy Will Consult Pulmonary. They will review CT scan and provide recommendations regarding the need for bronchoscopy Qualifiers: Laterality: Current visit: No Status: Acute (4) COPD (chronic obstructive pulmonary disease): Problem details: On nebs and prednisone Current visit: Yes Status: Acute (5) Pneumonia: Problem details: as above Suspect post obstructive pneumonia, may require bronchoscopy for definitive treatment Continue antibiotics Qualifiers: Aspiration pneumonia type: Laterality: bilateral Lung location: lower lobe of lung Pneumonia type: due to unspecified organism Qualified Code(s): J18.1 - Lobar pneumonia, unspecified organism Current visit: Yes Status: Acute Plan: Assessment/Plan Narrative: Severe protein calorie malnutrition, BMI 17, will add ensure to diet
[2018-01-13] MEDS: levoFLOXacin 500 MG/100 ML PIGGYBACK 100 MG IV (12:38)
[2018-01-14] VITALS (9 sets, daily range): BP systolic 79–132; BP diastolic 45–74; PULSE 52–82; RESP 14–20; TEMP 36.3–37.1; O2SAT 91–97
[2018-01-14] MEDS: PIPERACILLIN-TAZO 3.375 GM/50 ML FROZ.PIGGY IV ×3 (03:32→15:57)
[2018-01-14] MEDS: HYDROMORPHONE 1 MG INJ IV ×2 (03:48→09:33)
[2018-01-14] MEDS: ALBUTEROL/IPRATROPIUM 3 ML AMPUL INH ×2 (05:20→11:39)
[2018-01-14] MEDS: LEVOTHYROXINE 125 MCG TABLET PO (06:26)
[2018-01-14] MEDS: PANTOPRAZOLE 20 MG TABLET PO (06:26)
[2018-01-14] MEDS: OXYCODONE IR 10 MG TABLET PO (06:31)
[2018-01-14] MEDS: CITALOPRAM 20 MG TABLET PO (09:30)
[2018-01-14] MEDS: DOCUSATE 100 MG CAPSULE PO (09:31)
[2018-01-14] MEDS: MORPHINE ER 15 MG TABLET PO (09:31)
[2018-01-14] MEDS: predniSONE 20 MG TABLET 40 MG PO (09:31)
[2018-01-14] MEDS: MORPHINE ER 30 MG TABLET 60 MG PO (09:31)
[2018-01-14] MEDS: PREGABALIN 50 MG CAPSULE PO ×2 (09:32→14:43)
[2018-01-14] MEDS: ENOXAPARIN 40 MG/0.4 ML SYRINGE SUBCUT (09:33)
[2018-01-14] MEDS: levoFLOXacin 500 MG/100 ML PIGGYBACK 100 MG IV (13:50)
--- NOTE | 2018-01-14 15:40 | PM.DS.1 ---
History of Present Illness Date Patient Seen: 01/14/18 Time Patient Seen: 15:40 Chief complaint: SOB Narrative: Patient is a 62 years of age male with a known history of non-small cell lung cancer diagnosed 3 years ago. Patient has been under the care of Dr. Young, oncologist at [facility] for the past 3 years. Patient receiving chemotherapy to treat. Patient was admitted to the hospital with chief complaint of shortness of breath and chest pain. Patient had a CT of the chest which ruled out for pulmonary embolism. Patient was noted with a postobstructive pneumonia with a lung cancer in the right upper lobe region. CT of the chest also noted an air-fluid level related to this pneumonia secondary to airway obstruction. Patient was placed on Levaquin as well as Zosyn antibiotic to treat. Discharge Providers Date of admission: 01/11/18 12:31 Consults: 01/11/18 15:43 Consult to Dietitian, Adult Routine Comment: Reason For Exam: assessed at high risk Discharge provider: Michael Waite MD Discharge Date: 01/14/18 Summary Discharge Diagnosis: Severe sepsis secondary to postobstructive pneumonia Zosyn/Levofloxacin Sepsis resolved early in hospital course Acute respiratory failure: Upon arrival to his home medics found the patient to have a room air saturation of 80% which improved in the ED after several nebulizer treatments Will continue duonebs, oxygen, steroids, and antibiotics Change steroids to oral steroid to treat Non-small cell lung cancer Lesion noted on CT of the chest COPD (chronic obstructive pulmonary disease): On nebs and prednisone Post obstructive Pneumonia: I spoke to business analysis professional who does interventional bronchoscopies at [facility] and he agreed patient would be appropriate for transfer To higher level of care. Construction Ironworker plans consultation with CT surgeon as well as interventional radiologist Severe protein calorie malnutrition BMI 17 added ensure to diet Hospital Course: Patient admitted to the hospital post obstructive pneumonia and placed on Zosyn as well as Levaquin antibiotic to treat. Patient also on steroid therapy related to the COPD and continued smoking addiction.\ CT of the chest notes a large cavitary lesion with air-fluid level in the right upper lobe lung. I spoke to Interventional process safety specialist at [facility] who will coordinate care with CT surgeon as well as interventional radiologist The accepting physician is Dr. Rankin Status at Discharge Cognitive/behavioral status at discharge: Well oriented no apparent distress affect appropriate Functional status at discharge: independent ambulation Time Spent with Patient Greater than 30 minutes (45 min) Exam Vital Signs (past 8 hours): - 01/14/18 08:10 01/14/18 11:39 01/14/18 11:52 Temperature 97.8 F 97.4 F L Pulse Rate 82 74 54 L Respiratory Rate 16 14 14 Blood Pressure 102/66 79/45 L Pulse Oximetry 91 97 92 01/14/18 12:41 Temperature Pulse Rate Respiratory Rate Blood Pressure Pulse Oximetry 94 Fraction of Inspired Oxygen 21 Oxygen Delivery Method Room Air Oxygen Flow Rate 0 Narrative Exam Narrative: General appearance cachectic male older in appearance than age reported, awake and alert Psychiatric well oriented to time place and person mood is pleasant and affect is appropriate Respiratory fair breath sounds at best in the upper lobes somewhat diminished on the right compared to the left no significant wheezes or crackles Cardiovascular regular rate rhythm no murmurs GI is fairly benign soft nontender Neurologic no focal neurologic changes Objective Labs Result Diagrams: 01/13/18 04:43 01/13/18 04:43 Discharge Plan Discharge Plan Patient Disposition: [facility] Transfer to: [facility] Under care of provider: Dr Rankin Hospitalist Discharge Med Rec/Prescriptions Prescriptions: No Action magnesium oxide 400 MG tablet 400 mg PO QDAY Qty: 0 RF: 0 ipratropium-albuterol [Combivent Respimat] 4 GM mist 1 puff INH Q6HP PRNQty: 1 RF: 0 [DISABLED PARKING ] 1 ea X1 Qty: 1 RF: 0 polyethylene glycol 3350 [Miralax] 17 GM powder in packet 17 gm PO QDAY Qty: 30 RF: 2 lactulose 10 GM/15 ML solution 20 gm PO QDAY Qty: 200 RF: 2 acetaminophen 650 MG tablet extended release 650 mg PO Q8H Qty: 30 RF: 0 esomeprazole magnesium 20 MG capsule,delayed release(DR/EC) 20 mg PO QDAY Qty: 30 RF: 0 hydroxyzine HCl 25 MG tablet 25 - 50 mg PO Q6H PRN (Reason: Itching) RF: 0 citalopram [Celexa] 20 mg Tablet 20 mg PO DAILY Qty: 90 RF: 1 pregabalin [Lyrica] 50 mg Capsule 50 mg PO TID Qty: 90 RF: 1 levothyroxine [Synthroid] 125 mcg Tablet 125 mcg PO DAILY Qty: 90 RF: 2 albuterol sulfate [Ventolin HFA] 90 MCG/PUFF HFA aerosol inhaler 1 puff INH Q6H Qty: 8 RF: 4 morphine [MS Contin] 60 mg Tablet Extended Release 60 mg PO Q12H Qty: 60 RF: 0 Discharge Orders: Discharge (Order); Ordered 01/14/18 Ordered By: Michael Waite Discharge Health Status MDRO Verified by culture: No Precautions: [place] Provider Discharge Instructions Diet: Diet as Tolerated Liquid consistency: Normal/Thin Discharge Data Attending Provider: Ema Mejias Admit Date/Time: 01/11/18 12:31
[2018-01-14 16:04] LABS: Add Manual Diff / Slide Review NO; Basophils Percent Auto 0.1 % (0-2); Hematocrit 35.2 % (41-53); Hemoglobin 11.4 g/dL (13.5-17.5); Mean Corpuscular HGB Conc 32.6 % (30-36); Mean Corpuscular Hemoglobin 28.4 PG (26-34); Mean Corpuscular Volume 87.4 fL (80-100); Neutrophils Absolute Auto 13800 /uL (3000-5900); Neutrophils Percent Auto 95.9 % (50-75); Platelet Count 519 X10^3/uL (150-400); Red Blood Cell Count 4.02 X10^6/uL (4.5-5.9); Red Cell Distribution Width 14.7 % (11.6-14.8); White Blood Cell Count 14.4 X10^3/uL (4.5-11.0)
--- NOTE | 2018-01-14 16:11 | CM.DPC ---
DCP: continued: Case discussed in Team Rounds with Dr. Waite, taking over as hospitalist today. He planned to reach out to [facility] to discuss case with pulmonology as well as others. He reported at 1530 that he know had an accepting physician and [facility] will accept pt when bed available. RN coordinator is updated as well as RN Mic/zaida umana. Pt is expressing thankfulness to Dr. Waite for this plan.] P: [facility]/transfer/pending bed
[2018-01-14 16:20] LABS: Alanine Aminotransferase 38 IU/L (21-72); Albumin 2.6 g/dL (3.5-5.0); Albumin Globulin Ratio 0.8 (1.0-2.8); Alkaline Phosphatase 110 U/L (38-126); Aspartate Aminotransferase 38 IU/L (17-59); BUN Creatinine Ratio 21.1 (6-22); Bilirubin Total 0.3 mg/dL (0.2-1.3); Blood Urea Nitrogen 19 mg/dL (9-20); C-Reactive Protein Quant 1.5 mg/dL (<1.0); Calcium 8.1 mg/dL (8.4-10.2); Carbon Dioxide 26 mmol/L (22-32); Chloride 104 mmol/L (98-107); Estimated Glomerular Filt Rate > 60.0 mL/min (>60); Globulin 3.1 g/dL (1.7-4.1); Glucose 138 mg/dL (80-110); HEMOLYSIS < 15 (0-50); Sodium 139 mmol/L (137-145); Total Protein 5.7 g/dL (6.3-8.2)
--- NOTE | 2018-01-14 19:39 | PC.NURSE ---
LATE NOTE, PATIENT HL AFTER IV ANTIBIOTICS, DENIES NEED FOR PAIN MEDICATIONS AT THIS TIME,WAITING FOR EMT TO TRANSFER HOSPITALS,DENIES NEEDS TOOK DINNER WITHOUT DIFFICULTY.USES URINAL BEDSIDE. EMT HERE TO TRANSFER TO [facility].REPORT CALLED.
== END 2018-01-14 18:40 | disposition short-term general hospital (02) | DRG 139 ==
LOC: ED 12:23 → AC 12:32
PROVIDERS: Internal Medicine; Admitting Provider Internal Medicine; Emergency Provider Emergency Medicine; Visit Provider Internal Medicine
DX: J18.8 Other pneumonia, unspecified organism (principal); J96.00 Acute respiratory failure, unspecified whether with hypoxia or hypercapnia; C77.0 Secondary and unspecified malignant neoplasm of lymph nodes of head, face and neck; C79.51 Secondary malignant neoplasm of bone; C34.11 Malignant neoplasm of upper lobe, right bronchus or lung; C78.02 Secondary malignant neoplasm of left lung; E43 Unspecified severe protein-calorie malnutrition; Z68.1 Body mass index [BMI] 19.9 or less, adult; E03.9 Hypothyroidism, unspecified; F17.210 Nicotine dependence, cigarettes, uncomplicated; J44.9 Chronic obstructive pulmonary disease, unspecified
CPT/HCPCS: 36415; 71275; 80048; 80053; 82550; 82962; 83605; 83880; 84484; 85025; 85610; 85730; 86140; 87040; 93005; 93041; 94640; 94760; 94762; 96361; 96374; 96375; 99285; 99406; J1170; J1650; J1956; J2270; J2543; J2930

== ENCOUNTER 2018-01-19 17:30 | Emergency (ER) | payer OTHER, MEDICAID, SELFPAY ==
[2018-01-11 15:43] VITALS: BMI 17.8
[2018-01-19 17:36] VITALS: BP 92/52; PULSE 78; RESP 20; TEMP 36.2; O2SAT 97; BMI 19.9
--- NOTE | 2018-01-19 19:43 | ED.EXTPRO ---
HPI - Extremity Problem General Chief complaint: Extremity Problem,Nontraumatic Stated complaint: BILATERAL LEG SWELLING Time Seen by Provider: 01/19/18 19:43 Source: patient and family Mode of arrival: ambulatory Limitations: no limitations History of Present Illness HPI Narrative: 62M smoker with complex medical history and recent hospitalization presents to the emergency department with a chief complaint of bilateral lower extremity swelling and a 15 lb weight gain since recent hospitalization until now. The patient presented to our department on 01/11 with a chief complaint of shortness of breath. He has a known right lung adenocarcinoma, unresectable, being treated with a manual therapy (most recently 3 weeks ago). Patient was treated here with significant IV fluids and IV antibiotics for the presumed treatment of a postobstructive pneumonia. A few days into his admission he was transferred to [facility] for higher level of care and the possibility of an interventional bronchoscopy. He was discharged a few days ago feeling much better and since then has developed bilateral lower extremity swelling. He denies any redness or warmth. He denies any chest pain or shortness of breath which is new or different for him. He denies any fever or chills. He has been attempting to elevate his lower extremities with minimal help. He did not get the bronchoscopy MD Complaint: extremity swelling Onset (ago): day(s) Location: left and right Relieving factors: nothing Exacerbating factors: nothing Associated symptoms: denies other symptoms Context: history of DVT Related Data Home Medications Medication Instructions Recorded Confirmed magnesium oxide 400 mg PO QDAY #0 12/04/15 01/11/18 hydroxyzine HCl 25 - 50 mg PO Q6H PRN 08/20/17 01/11/18 Previous Rx's Medication Instructions Recorded ipratropium-albuterol [Combivent 1 puff INH Q6HP PRN #1 inh 04/13/16 Respimat] [DISABLED PARKING ] 1 ea X1 #1 ea 04/29/16 polyethylene glycol 3350 [Miralax] 17 gm PO QDAY #30 packet 06/10/16 lactulose 20 gm PO QDAY #200 ml 01/25/17 acetaminophen 650 mg PO Q8H #30 tab 02/16/17 esomeprazole magnesium 20 mg PO QDAY #30 cap 06/25/17 citalopram [Celexa] 20 mg PO DAILY #90 tab 10/29/17 pregabalin [Lyrica] 50 mg PO TID #90 cap 10/29/17 morphine [MS Contin] 60 mg PO Q12H #60 tab 11/18/17 albuterol sulfate [Ventolin HFA] 1 puff INH Q6H #8 gm 11/25/17 levothyroxine [Synthroid] 125 mcg PO DAILY #90 tab 11/25/17 Allergies Allergy/AdvReac Type Severity Reaction Status Date / Time aspirin [ASPIRIN] AdvReac Mild NAUSEA Verified 01/12/18 05:26 Review of Systems Review of Systems All systems reviewed & are unremarkable except as noted in HPI and below Constitutional Denies chills, Denies fever(s), Denies lethargy and Denies weakness Eyes Denies change in vision, Denies eye discharge, Denies irritation and Denies loss of vision ENT Ears, Nose, Mouth, and Throat: Denies change in voice, Denies neck pain and Denies sore throat Cardiovascular Denies chest pain, Denies irregular heart rhythm, Denies lightheadedness, Denies palpitations, Denies dyspnea, Denies dyspnea on exertion and Denies orthopnea Respiratory Denies cough, Denies dyspnea, Denies dyspnea on exertion and Denies wheezing Gastrointestinal Gastrointestinal: Denies abdominal pain, Denies change in bowel habits, Denies diarrhea, Denies nausea and Denies vomiting Genitourinary Denies hematuria, Denies flank pain, Denies urinary incontinence and Denies urinary urgency Musculoskeletal Reports joint swelling and Denies neck pain Integumentary/Breasts Denies pruritus, Denies erythema, Denies rash and Denies wounds Neurologic Denies confusion, Denies loss of vision and Denies weakness Psychiatric Denies anxiety, Denies confusion, Denies depression, Denies homicidal ideation and Denies suicidal ideation Endocrine Denies palpitations Hematologic/Lymphatic Denies easy bruising Allergic/Immunologic Denies wheezing PFSH Medical History DVT of upper extremity (deep vein thrombosis) (Acute) Hypothyroid (Acute) Lung cancer, primary, with metastasis from lung to other site (Acute) Social History household members: family and caregiver Smoking Status: Current every day smoker alcohol intake: never Exam Narrative Exam Narrative: 62-year-old male, chronically ill in mild distress, no apparent respiratory difficulties Initial Vital Signs Initial Vital Signs: Vital Signs Temperature 97.1 F L 01/19/18 17:36 Pulse Rate 78 01/19/18 17:36 Respiratory Rate 20 01/19/18 17:36 Blood Pressure 92/52 L 01/19/18 17:36 Pulse Oximetry 97 01/19/18 17:36 Const General: cooperative and in distress Nutritional Appearance: underweight Orientation: alert, awake, oriented x3 and not confused HENMT Head: atraumatic and other (temporal wasting) Ears: external ears normal and TM's normal bilaterally Nose: external nose normal and No nasal discharge Face and sinus: sinuses nontender, face symmetric, no sinus tenderness and No dry mucous membranes Mouth: oral mucosae normal and moist mucous membranes Teeth and gingiva: dentition normal Throat: tonsils normal and uvula midline Eyes General: appearance normal, both eyes and all related structures Eyelids: eyelids normal Conjunctivae: conjunctivae normal Sclera: sclerae normal Pupils: PERRL EOM: EOM intact bilaterally Chest Chest: normal inspection of the chest Resp Effort & Inspection: normal respiratory effort, able to speak in complete sentences, no respiratory distress and no use of accessory muscles Auscultation: diminished lung sounds, no rales, no rhonchi and no wheezes Course Orders Ordered: ED Orders 01/19/18 19:57 US periph venous low extrem bi Stat Basic Metabolic Panel Stat 01/19/18 19:58 XR chest 1V Stat 01/19/18 20:07 B Type Natriuretic Peptide Stat Complete Blood Count AUTO DIFF Stat Vital Signs - 8 hr 01/19/18 17:36 01/19/18 19:51 01/19/18 19:54 Temperature 97.1 F L 97.1 F L Pulse Rate 78 74 74 Respiratory Rate 20 14 14 Blood Pressure 92/52 L 92/52 L Blood Pressure [Left Arm] 121/59 L Pulse Oximetry 97 98 98 MDM - Extremity (Nontraumatic) Lab Data Result diagrams: 01/19/18 20:07 Discharge Plan Departure Prescriptions: No Action magnesium oxide 400 MG tablet 400 mg PO QDAY Qty: 0 RF: 0 ipratropium-albuterol [Combivent Respimat] 4 GM mist 1 puff INH Q6HP PRNQty: 1 RF: 0 [DISABLED PARKING ] 1 ea X1 Qty: 1 RF: 0 polyethylene glycol 3350 [Miralax] 17 GM powder in packet 17 gm PO QDAY Qty: 30 RF: 2 lactulose 10 GM/15 ML solution 20 gm PO QDAY Qty: 200 RF: 2 acetaminophen 650 MG tablet extended release 650 mg PO Q8H Qty: 30 RF: 0 esomeprazole magnesium 20 MG capsule,delayed release(DR/EC) 20 mg PO QDAY Qty: 30 RF: 0 hydroxyzine HCl 25 MG tablet 25 - 50 mg PO Q6H PRN (Reason: Itching) RF: 0 citalopram [Celexa] 20 mg Tablet 20 mg PO DAILY Qty: 90 RF: 1 pregabalin [Lyrica] 50 mg Capsule 50 mg PO TID Qty: 90 RF: 1 levothyroxine [Synthroid] 125 mcg Tablet 125 mcg PO DAILY Qty: 90 RF: 2 albuterol sulfate [Ventolin HFA] 90 MCG/PUFF HFA aerosol inhaler 1 puff INH Q6H Qty: 8 RF: 4 morphine [MS Contin] 60 mg Tablet Extended Release 60 mg PO Q12H Qty: 60 RF: 0
[2018-01-19 19:51] VITALS: BP 121/59; PULSE 74; RESP 14; O2SAT 98
[2018-01-19 19:54] VITALS: BP 92/52; PULSE 74; RESP 14; TEMP 36.2; O2SAT 98; BMI 20.5
--- NOTE | 2018-01-19 19:57 | DI.US.S_ITS ---
PROCEDURE: US PERIPH VENOUS LOW EXTREM BI INDICATIONS: B/L LE swelling, recent hospitalization TECHNIQUE: Real-time imaging, as well as color and pulse Doppler interrogation, were performed of the deep veins of both legs from the inguinal ligament to the popliteal fossa. COMPARISON: None. FINDINGS: The deep veins are normally compressible, and free of intraluminal thrombus. Color and pulse Doppler demonstrate normal phasic intravascular flow. There is normal augmentation response to distal compression maneuver. IMPRESSION: No evidence of bilateral lower extremity DVT. Dictated by: Subhash Pierre M.D. on 01/19/2018 at 21:24 Approved by: Subhash Pierre M.D. on 01/19/2018 at 21:24
--- NOTE | 2018-01-19 19:58 | DI.RAD.S_ITS ---
PROCEDURE: XR CHEST 1V INDICATIONS: swollen B/L LE, weight gain TECHNIQUE: One view of the chest was acquired. COMPARISON: [facility], CR, XR CHEST 2V, 12/30/2017, 11:55. FINDINGS: Surgical changes and devices: Left chest wall maya catheter, tip of which is in the left brachiocephalic vein. Lungs and pleura: No pleural effusions or pneumothorax. Decreased right apical pleural-parenchymal density. Mediastinum: Mediastinal contours appear normal. Heart size is normal. Bones and chest wall: No suspicious bony lesions. Overlying soft tissues appear unremarkable. IMPRESSION: Decreased right apical pleural-parenchymal density. Dictated by: Subhash Pierre M.D. on 01/19/2018 at 20:32 Approved by: Subhash Pierre M.D. on 01/19/2018 at 20:33
[2018-01-19 20:24] LABS: Add Manual Diff / Slide Review NO; Basophils Percent Auto 0.7 % (0-2); Eosinophils Percent Auto 3.8 % (2-4); Hematocrit 32.3 % (41-53); Hemoglobin 10.7 g/dL (13.5-17.5); Lymphocytes Percent Auto 16.2 % (25-40); Mean Corpuscular HGB Conc 33.2 % (30-36); Mean Corpuscular Hemoglobin 28.9 PG (26-34); Mean Corpuscular Volume 87.2 fL (80-100); Monocytes Percent Auto 11.7 % (3-14); Neutrophils Absolute Auto 6300 /uL (3000-5900); Neutrophils Percent Auto 67.6 % (50-75); Platelet Count 326 X10^3/uL (150-400); Red Cell Distribution Width 15.7 % (11.6-14.8); White Blood Cell Count 9.3 X10^3/uL (4.5-11.0)
[2018-01-19 20:34] LABS: B Type Natriuretic Peptide < 100.0 (<100)
[2018-01-19 20:47] LABS: BUN Creatinine Ratio 27.5 (6-22); Blood Urea Nitrogen 22 mg/dL (9-20); Calcium 8.2 mg/dL (8.4-10.2); Carbon Dioxide 32 mmol/L (22-32); Chloride 99 mmol/L (98-107); Estimated Glomerular Filt Rate > 60.0 mL/min (>60); Glucose 108 mg/dL (80-110); HEMOLYSIS < 15 (0-50); Sodium 133 mmol/L (137-145)
[2018-01-19 20:49] LABS: Potassium 5.5 mmol/L (3.4-5.1)
[2018-01-19 21:04] VITALS: BP 100/52; PULSE 70; RESP 16; O2SAT 98
[2018-01-19 22:00] VITALS: BP 104/59; PULSE 64; RESP 14; O2SAT 99
[2018-01-19 23:00] VITALS: BP 108/54; PULSE 69; RESP 14; O2SAT 98
[2018-01-19] MEDS: FUROSEMIDE 40 MG TABLET PO (23:59)
[2018-01-20] VITALS: BP 109/61; PULSE 77; RESP 20; O2SAT 93
== END 2018-01-20 00:18 | disposition home or self-care (01) ==
PROVIDERS: Emergency Provider Emergency Medicine
DX: R60.9 Edema, unspecified (principal)
CPT/HCPCS: 36591; 71045; 80048; 83880; 85025; 93041; 93970; 99283; 99285

== ENCOUNTER 2018-01-25 15:00 | Emergency (ER) | payer OTHER, MEDICAID, SELFPAY ==
[2018-01-11 15:43] VITALS: BMI 17.8
[2018-01-25 15:08] VITALS: BP 86/60; PULSE 74; RESP 17; TEMP 36.3; O2SAT 95; BMI 19.0
--- NOTE | 2018-01-25 15:18 | ED.EXTPRO ---
HPI - Extremity Problem <GEORGE Rios - Last Filed: 01/25/18 22:08> General Chief complaint: Extremity Problem,Nontraumatic Stated complaint: cellulitus in lower legs: blisters and sores Time Seen by Provider: 01/25/18 15:18 Source: patient Mode of arrival: ambulatory Limitations: no limitations History of Present Illness HPI Narrative: 62-year-old male with history of lung cancer and is an everyday smoker here for complaint of redness and blisters to his right foot that he noticed yesterday. He states he is concerned about cellulitis. He denies any fevers or chills. Denies any trauma to the right foot. Blisters and redness is limited to the right foot. He denies any other concerns or complaints at this time. No drainage to the sores on his right foot. MD Complaint: other Related Data Home Medications Medication Instructions Recorded Confirmed magnesium oxide 400 mg PO QDAY #0 12/04/15 01/27/18 hydroxyzine HCl 25 - 50 mg PO Q6H PRN 08/20/17 01/27/18 amoxicillin-pot clavulanate 1 tab PO BID 01/20/18 01/27/18 nicotine [Nicoderm CQ] 1 patch TRANSDERMAL Q24H 01/20/18 01/27/18 Previous Rx's Medication Instructions Recorded ipratropium-albuterol [Combivent 1 puff INH Q6HP PRN #1 inh 04/13/16 Respimat] [DISABLED PARKING ] 1 ea X1 #1 ea 04/29/16 polyethylene glycol 3350 [Miralax] 17 gm PO QDAY #30 packet 06/10/16 lactulose 20 gm PO QDAY #200 ml 01/25/17 acetaminophen 650 mg PO Q8H #30 tab 02/16/17 esomeprazole magnesium 20 mg PO QDAY #30 cap 06/25/17 citalopram [Celexa] 20 mg PO DAILY #90 tab 10/29/17 pregabalin [Lyrica] 50 mg PO TID #90 cap 10/29/17 albuterol sulfate [Ventolin HFA] 1 puff INH Q6H #8 gm 11/25/17 furosemide [Lasix] 40 mg PO DAILY #3 tab 01/19/18 potassium chloride 20 meq PO DAILY #5 tab 01/19/18 lactulose [Enulose] 20 g PO TID PRN #120 ml 01/20/18 levothyroxine 137 mcg PO DAILY #60 tab 01/20/18 morphine [MS Contin] 60 mg PO Q12H #60 tab 01/20/18 Allergies Allergy/AdvReac Type Severity Reaction Status Date / Time aspirin [ASPIRIN] AdvReac Mild NAUSEA Verified 01/25/18 15:08 Review of Systems <GEORGE Rios - Last Filed: 01/25/18 22:08> Constitutional Denies chills, Denies fever(s), Denies lethargy and Denies weakness Eyes Denies change in vision, Denies eye discharge, Denies irritation and Denies loss of vision ENT Ears, Nose, Mouth, and Throat: Denies change in voice, Denies neck pain and Denies sore throat Cardiovascular Denies chest pain, Denies irregular heart rhythm, Denies lightheadedness, Denies palpitations, Denies dyspnea, Denies dyspnea on exertion and Denies orthopnea Respiratory Denies cough, Denies dyspnea, Denies dyspnea on exertion and Denies wheezing Gastrointestinal Gastrointestinal: Denies abdominal pain, Denies change in bowel habits, Denies diarrhea, Denies nausea and Denies vomiting Genitourinary Denies hematuria, Denies flank pain, Denies urinary incontinence and Denies urinary urgency Musculoskeletal Denies neck pain Comments: Blisters and redness to right foot Integumentary/Breasts Denies pruritus, Denies erythema, Denies rash and Denies wounds Neurologic Denies confusion, Denies loss of vision and Denies weakness Psychiatric Denies anxiety, Denies confusion, Denies depression, Denies homicidal ideation and Denies suicidal ideation Endocrine Denies palpitations Hematologic/Lymphatic Denies easy bruising Allergic/Immunologic Denies wheezing Exam <GEORGE Rios - Last Filed: 01/25/18 22:08> Initial Vital Signs Initial Vital Signs: Vital Signs Temperature 97.4 F L 01/25/18 15:08 Pulse Rate 74 01/25/18 15:08 Respiratory Rate 17 01/25/18 15:08 Blood Pressure 86/60 L 01/25/18 15:08 Pulse Oximetry 95 01/25/18 15:08 Const General: cooperative and well developed Nutritional Appearance: well nourished Orientation: alert, awake, oriented x3 and not confused HENMT Mouth: oral mucosae normal and moist mucous membranes Eyes Conjunctivae: conjunctivae normal Sclera: sclerae normal Pupils: PERRL EOM: EOM intact bilaterally Resp Effort & Inspection: normal respiratory effort, able to speak in complete sentences, no respiratory distress and no use of accessory muscles Auscultation: clear to auscultation bilaterally, no rales, no rhonchi and no wheezes Cardio Rate: regular rate Rhythm: regular rhythm Heart Sounds: no click, no gallops, no murmurs and no rubs Pulses: normal peripheral pulses GI Inspection: non-distended Palpation: soft, no hepatosplenomegaly, No guarding, No pulsatile mass and No tender Auscultation: normal bowel sounds Skin General: no rashes or lesions noted, No jaundice and No petechiae Neuro General: alert, oriented x3, gait normal and no focal motor deficits Speech: speech normal Extrem Other: Small blister to right foot dorsal aspect with no surrounding erythema. One small blister to the area of the medial malleolus with no surrounding erythema. No fluctuance no induration. Distal sensation is intact. Distal range of motion is intact. Distal cap refill less than 2 sec. <Kalina Davenport MD - Last Filed: 02/03/18 14:01> Initial Vital Signs Initial Vital Signs: Vital Signs Temperature 97.4 F L 01/25/18 15:08 Pulse Rate 74 01/25/18 15:08 Respiratory Rate 17 01/25/18 15:08 Blood Pressure 86/60 L 01/25/18 15:08 Pulse Oximetry 95 01/25/18 15:08 Course <GEORGE Rios - Last Filed: 01/25/18 22:08> Vital Signs - 8 hr 01/25/18 15:08 01/25/18 16:16 Temperature 97.4 F L Pulse Rate 74 76 Respiratory Rate 17 12 Blood Pressure 86/60 L Pulse Oximetry 95 97 <Kalina Davenport MD - Last Filed: 02/03/18 14:01> Vital Signs - 8 hr 01/25/18 15:08 01/25/18 16:16 Temperature 97.4 F L Pulse Rate 74 76 Respiratory Rate 17 12 Blood Pressure 86/60 L Pulse Oximetry 95 97 MDM - Extremity (Nontraumatic) <GEORGE Rios - Last Filed: 01/25/18 22:08> MDM Narrative Medical decision making narrative: Do not appreciate infection at this time. Suspected that blisters or due to friction recommend the patient wear comfortable shoes. Blood pressure was low today however it is consistent with prior blood pressure readings of his and appears that this is his baseline. Wounds dressed with bacitracin dressing. Dress wounds daily with bacitracin dressing until healed. Follow up with primary care provider. For any worsening symptoms return to the emergency room. Discharge Plan Departure Patient Disposition: Home Clinical Impression: Blister (nonthermal), right foot, initial encounter Discharge Date/Time: 01/25/18 16:17 Interventions: ED Discharge Assessment Last Done: 01/25/18 16:16 Instructions: DI for Blisters Activity Restrictions/Additional Instructions: Blisters right foot appeared to be due to friction. Make sure you are wearing comfortable shoes. No infection is appreciated this time. Follow up with primary care provider. Dress wound daily with bacitracin and a dressing until healed. For any worsening symptoms return to the emergency room. Prescriptions: No Action magnesium oxide 400 MG tablet 400 mg PO QDAY Qty: 0 RF: 0 ipratropium-albuterol [Combivent Respimat] 4 GM mist 1 puff INH Q6HP PRNQty: 1 RF: 0 [DISABLED PARKING ] 1 ea X1 Qty: 1 RF: 0 polyethylene glycol 3350 [Miralax] 17 GM powder in packet 17 gm PO QDAY Qty: 30 RF: 2 lactulose 10 GM/15 ML solution 20 gm PO QDAY Qty: 200 RF: 2 acetaminophen 650 MG tablet extended release 650 mg PO Q8H Qty: 30 RF: 0 esomeprazole magnesium 20 MG capsule,delayed release(DR/EC) 20 mg PO QDAY Qty: 30 RF: 0 hydroxyzine HCl 25 MG tablet 25 - 50 mg PO Q6H PRN (Reason: Itching) RF: 0 citalopram [Celexa] 20 mg Tablet 20 mg PO DAILY Qty: 90 RF: 1 pregabalin [Lyrica] 50 mg Capsule 50 mg PO TID Qty: 90 RF: 1 albuterol sulfate [Ventolin HFA] 90 MCG/PUFF HFA aerosol inhaler 1 puff INH Q6H Qty: 8 RF: 4 nicotine [Nicoderm CQ] 7 mg/24 hr Patch 24 Hour 1 patch TRANSDERMAL Q24H RF: 0 amoxicillin-pot clavulanate 875-125 mg Tablet 1 tab PO BID RF: 0 morphine [MS Contin] 60 mg Tablet Extended Release 60 mg PO Q12H Qty: 60 RF: 0 lactulose [Enulose] 10 gram/15 mL Solution 20 g PO TID PRN (Reason: constipation, severe) Qty: 120 RF: 1 levothyroxine 137 mcg Tablet 137 mcg PO DAILY Qty: 60 RF: 0 furosemide [Lasix] 40 mg tablet 40 mg PO DAILY Qty: 3 RF: 0 potassium chloride 20 mEq tablet,ER particles/crystals 20 meq PO DAILY Qty: 5 RF: 0 Referrals: [facility] [Provider Group]
[2018-01-25 16:16] VITALS: PULSE 76; RESP 12; O2SAT 97
== END 2018-01-25 16:17 | disposition home or self-care (01) ==
PROVIDERS: Emergency Provider Nurse Practitioner Family
DX: S90.821A Blister (nonthermal), right foot, initial encounter (principal)
CPT/HCPCS: 99282

== ENCOUNTER → 2018-01-31 14:01 | Outpatient (CLI) | payer OTHER, MEDICAID, SELFPAY ==
[2018-01-11 15:43] VITALS: BMI 17.8
--- NOTE | 2018-01-31 14:06 | DI.ECHO.S_ITS ---
[facility] +---------+ : : [address] : : : : [id number] : : : : Phone: [phone]+ Echocardiogram Report + + :Name: RON CARCAMO Study Date: 01/31/2018 Height: 72 in : :[facility] Weight: 145 lb : : Gender: Male BSA: 1.9 m2 : :: 1955 Age: 62 yrs BP: 138/78 mmHg: :Reason For Study: Chemotherapy F/U (ICD Code V67.2) : : Performed By: Hilary Zamora : :Referring: SURAJ MCFARLAND : + + Interpretation Summary The study quality was technically difficult. The left ventricle is grossly normal size. Left ventricular ejection fraction is estimated to be 55%. There are no obvious focal wall motion abnormalities noted but poor endocardial definition reduces the sensitivity for the detection of such. There is moderate mitral regurgitation. Probable mild MVP The right ventricular systolic pressure is estimated to be at least 20 mmHg based on an estimated right atrial pressure of 3 mm Hg. There is mild tricuspid regurgitation. Procedure: A two-dimensional transthoracic echocardiogram with color flow and Doppler was performed. The study quality was technically difficult. There is no prior echocardiogram noted for this patient. Parasternal images were obtained from the patients right side. The patient was in normal sinus rhythm during the exam. Left Ventricle: The left ventricle is grossly normal size. Left ventricular ejection fraction is estimated to be 55%. There are no obvious focal wall motion abnormalities noted but poor endocardial definition reduces the sensitivity for the detection of such. Diastolic parameters suggest probable normal left ventricular diastolic function and normal filling pressures. Right Ventricle: The right ventricle grossly appears normal in size with probable normal systolic function. Atria: The left atrial size is normal. Right atrial size is normal. The interatrial septum is intact with no evidence for an atrial septal defect. Mitral Valve: The mitral valve leaflets appear mildly thickened, but open well. Probable mild MVP. There is moderate mitral regurgitation. Aortic Valve: The aortic valve opens well. No aortic regurgitation is present. Tricuspid Valve: The tricuspid valve leaflets are thin and pliable. There is mild tricuspid regurgitation. The right ventricular systolic pressure is estimated to be at least 20 mmHg based on an estimated right atrial pressure of 3 mm Hg. Pulmonic Valve: The pulmonic valve is not well visualized. Great Vessels: The aortic root is normal size. The ascending aorta could not be visualized. The aortic arch is normal in size. The IVC is of normal diameter and collapses greater than 50% with a sniff. This suggests a low right atrial pressure of 3 mm Hg. Pericardium/ Pleura There is no pericardial effusion. There is no pleural effusion. MMode/2D Measurements & Calculations LVIDd: 5.0 cm Ao root diam: 3.7 cm LVIDs: 3.4 cm Ao Arch Diam (Prox Trans): 2.8 cm FS: 32.2 % IVSd: 0.84 cm LVPWd: 0.83 cm LV colunga. diameter/BSA (cm/m^2): 2.7 LV sys. diameter/BSA (cm/m^2): 1.8 LA A2 area: 19.1 cm2 IVC diam: 0.93 cm LA A4 area: 17.0 cm2 LA length (vol): 4.5 cm LA vol: 60.3 ml LA vol index: 32.5 ml/m2 Doppler Measurements & Calculations Ao V2 max: 82.6 cm/sec MV E max david: 66.3 cm/sec Ao V2 mean: 50.1 cm/sec MV A max david: 48.7 cm/sec Ao max P.7 mmHg MV E/A: 1.4 Ao mean P.2 mmHg Med Peak E' David: 6.8 cm/sec Ao V2 VTI: 18.9 cm E/E' med: 9.7 Lat Peak E' David: 7.3 cm/sec E/E' lat: 9.1 E/e' average: 9.4 MV dec time: 0.30 sec MV P1/2t: 89.4 msec TR max david: 206.4 cm/sec MV P1/2t max david: 65.9 cm/sec TR max P.0 mmHg MVA(P1/2t): 2.5 cm2 Reading Physician:03:35 PM
== END ==
PROVIDERS: Visit Provider Internal Medicine Hematology & Oncology
DX: I08.1 Rheumatic disorders of both mitral and tricuspid valves (principal); C34.90 Malignant neoplasm of unspecified part of unspecified bronchus or lung
CPT/HCPCS: 93306

== ENCOUNTER → 2018-02-09 14:29 | Outpatient (CLI) | payer OTHER, MEDICAID, SELFPAY ==
[2018-01-11 15:43] VITALS: BMI 17.8
--- NOTE | 2018-02-09 14:32 | DI.CT.S_ITS ---
PROCEDURE: CT CHEST WO CON INDICATIONS: follow up TECHNIQUE: Noncontrast 5 mm thick sections acquired from the pulmonary apices to the posterior costophrenic angles. 7 mm thick coronal and sagittal MIP reformats were then acquired. For radiation dose reduction, the following was used: automated exposure control, adjustment of mA and/or kV according to patient size. COMPARISON: [facility], CT, CT ANGIO CHEST PE PROTOCOL, 01/11/2018, 11:05. FINDINGS: Image quality: Excellent. Lungs and pleura: No acute air space opacities. Large previously present centrally necrotic malignant appearing mass with internal cavitation is again seen, right upper lobe, without appreciable oil change technician time. No new nodules have developed. No pleural effusions or pneumothorax. Central and peripheral airways are patent and normal in caliber. Mediastinum: Heart size is normal. No pericardial effusion. No mediastinal adenopathy by size criteria. Thoracic aorta and central pulmonary arteries are normal in size. Esophagus is normal in caliber. No hiatal hernia. Bones and chest wall: No suspicious bony lesions. No vertebral body compression fractures. No axillary or supraclavicular adenopathy by size criteria. Thyroid gland is not well-seen. Port-A-Cath extends into the left brachiocephalic vein from left-sided approach but does not enter the superior vena cava. Abdomen: Visualized upper abdominal solid organs and bowel loops appear normal in the absence of contrast. IMPRESSION: Study was performed without intravenous contrast which does mildly degrade quality of visualization. There is a large centrally necrotic right upper lobe lung mass, previously documented and stable over time. No new metastatic disease or evidence of active pneumonia is found. Central line from left-sided approach, Port-A-Cath, extends into the left brachiocephalic vein at the midline but does not extend inferiorly into the superior vena cava. Dictated by: Familia Clarke M.D. on 02/09/2018 at 16:07 Approved by: Familia Clarke M.D. on 02/09/2018 at 16:12
== END ==
PROVIDERS: Visit Provider Internal Medicine Hematology & Oncology
DX: C34.90 Malignant neoplasm of unspecified part of unspecified bronchus or lung (principal)
CPT/HCPCS: 71250

== ENCOUNTER → 2018-03-09 15:12 | Outpatient (CLI) | payer OTHER, MEDICAID, SELFPAY ==
[2018-01-11 15:43] VITALS: BMI 17.8
--- NOTE | 2018-03-09 | DI.CT.S_ITS ---
PROCEDURE: CT CHEST WO CON INDICATIONS: LUNG CANCER TECHNIQUE: Noncontrast 5 mm thick sections acquired from the pulmonary apices to the posterior costophrenic angles. 7 mm thick coronal and sagittal MIP reformats were then acquired. For radiation dose reduction, the following was used: automated exposure control, adjustment of mA and/or kV according to patient size. COMPARISON: [facility], CT, CT CHEST WO CON, 02/09/2018, 14:28. [facility], US, US PERIPH VENOUS LOW EXTREM BI, 01/19/2018, 20:53. [facility], CR, XR CHEST 1V, 01/19/2018, 20:01. [facility], CT, CT ANGIO CHEST PE PROTOCOL, 01/11/2018, 11:05. FINDINGS: Image quality: Excellent. Lungs and pleura: A large cavitary mass is again seen involving right lung apex. There is surrounding lung consolidation seen. Lung volume loss can be seen on the right side. This process is similar to the prior CT. Underlying emphysematous changes are seen. No significant pleural effusion is seen. There is narrowing of the right upper lobe bronchus. Mediastinum: Heart size is normal. A presumed coronary artery stent can be seen. No pericardial effusion. Slightly enlarged mediastinal lymph nodes are seen, which overall are improved compared to the teslas the 9th a CT examination. There is a subcarinal lymph node seen measures 13 x 21 mm. Thoracic aorta and central pulmonary arteries are normal in size. Esophagus is normal in caliber. There is a small hiatal hernia. Bones and chest wall: Lower cervical spine fixation hardware is seen. Pathologic fractures can be seen involving the right posterior medial 4th, 5th, and 6th ribs. Remote appearing fractures can be seen posteriorly on the left. There is a left-sided chest port is seen, with the tip within the medial left brachiocephalic vein. No vertebral body compression fractures. No axillary or supraclavicular adenopathy by size criteria. Thyroid gland is small in size. Abdomen: Visualized upper abdominal solid organs and bowel loops appear normal in the absence of contrast. IMPRESSION: Stable cavitary mass with surrounding compressed lung involving the right lung apex. Narrowing of the right upper lobe bronchus is seen. Mildly enlarged mediastinal lymph nodes are seen, which are improved compared to 01/11/18. Pathologic right posterior rib fractures. Remote, healed left posterior rib fractures are also seen. Emphysematous changes are seen. Incidental note is made of: Left-sided chest port Cervical spine fixation hardware Presumed coronary stent Small hiatal hernia Dictated by: Kelton Camilo M.D. on 03/09/2018 at 15:39 Approved by: Kelton Camilo M.D. on 03/09/2018 at 15:48
== END ==
PROVIDERS: Visit Provider Internal Medicine Hematology & Oncology
DX: C34.91 Malignant neoplasm of unspecified part of right bronchus or lung (principal); R59.0 Localized enlarged lymph nodes; M84.48XA Pathological fracture, other site, initial encounter for fracture; K44.9 Diaphragmatic hernia without obstruction or gangrene
CPT/HCPCS: 71250

== ENCOUNTER 2018-03-09 15:23 | Emergency (ER) | payer OTHER, MEDICAID, SELFPAY ==
[2018-01-11 15:43] VITALS: BMI 17.8
[2018-03-09 15:37] VITALS: BP 86/71; PULSE 88; RESP 34; TEMP 36.9; O2SAT 93; BMI 175.5
[2018-03-09] MEDS: ALBUTEROL/IPRATROPIUM 3 ML AMPUL INH (15:38)
[2018-03-09 15:39] VITALS: PULSE 75; RESP 18; O2SAT 95
[2018-03-09 15:50] VITALS: BP 84/63; PULSE 75; RESP 28; O2SAT 98
--- NOTE | 2018-03-09 15:54 | ED.SOB ---
HPI - SOB/Dyspnea General Chief Complaint: Shortness of Breath/Dyspnea Stated Complaint: coughing alot Time Seen by Provider: 03/09/18 15:43 Source: patient and old records reviewed Mode of arrival: ambulatory Limitations: no limitations History of Present Illness Patient is a 63-year-old male with right upper lobe lung massAnd chest wall mass most consistent with adenocarcinoma measuring up to 6 cm. Currently being treated with nivolumab, last treatment 02/23/2018. Presenting today with increasing productive cough. He had an outpatient chest CT. He says he is a productive cough difficulty breathing. This is been ongoing for about a week. Told is oncologist he was not given any antibiotics at that time. He has progressively gotten worse. He feels fall like he has a productive cough which has changed his has shaking chills. MD Complaint: shortness of breath and cough Related Data Home Medications Medication Instructions Recorded Confirmed magnesium oxide 400 mg PO QDAY #0 12/04/15 01/27/18 nicotine [Nicoderm CQ] 1 patch TRANSDERMAL Q24H 01/20/18 01/27/18 Previous Rx's Medication Instructions Recorded ipratropium-albuterol [Combivent 1 puff INH Q6HP PRN #1 inh 04/13/16 Respimat] [DISABLED PARKING ] 1 ea X1 #1 ea 04/29/16 polyethylene glycol 3350 [Miralax] 17 gm PO QDAY #30 packet 06/10/16 lactulose 20 gm PO QDAY #200 ml 01/25/17 acetaminophen 650 mg PO Q8H #30 tab 02/16/17 esomeprazole magnesium 20 mg PO QDAY #30 cap 06/25/17 citalopram [Celexa] 20 mg PO DAILY #90 tab 10/29/17 pregabalin [Lyrica] 50 mg PO TID #90 cap 10/29/17 albuterol sulfate [Ventolin HFA] 1 puff INH Q6H #8 gm 11/25/17 potassium chloride 20 meq PO DAILY #5 tab 01/19/18 lactulose [Enulose] 20 g PO TID PRN #120 ml 01/20/18 levothyroxine 137 mcg PO DAILY #60 tab 01/20/18 hydroxyzine HCl 25 - 50 mg PO Q6H PRN #60 tab 02/03/18 hydrocodone-acetaminophen 1 tab PO Q4-6H PRN #90 tab 02/23/18 levofloxacin [Levaquin] 750 mg PO DAILY #7 tab 03/09/18 prednisone 10 mg PO DAILY #30 tab 03/09/18 Allergies Allergy/AdvReac Type Severity Reaction Status Date / Time aspirin [ASPIRIN] AdvReac Mild NAUSEA Verified 03/09/18 15:37 Review of Systems Review of Systems All systems reviewed & are unremarkable except as noted in HPI and below Constitutional Reports chills, Reports fatigue and Reports fever(s) Eyes Denies change in vision, Denies eye discharge, Denies irritation and Denies loss of vision ENT Ears, Nose, Mouth, and Throat: Denies change in voice, Denies neck pain and Denies sore throat Cardiovascular Denies chest pain, Denies irregular heart rhythm, Denies lightheadedness, Denies palpitations and Denies orthopnea Respiratory Reports as per HPI Gastrointestinal Gastrointestinal: Denies abdominal pain, Denies change in bowel habits, Denies diarrhea, Denies nausea and Denies vomiting Musculoskeletal Denies neck pain Integumentary/Breasts Denies pruritus, Denies erythema, Denies rash and Denies wounds Neurologic Denies loss of vision Endocrine Reports fatigue and Denies palpitations PFSH Medical History COPD (chronic obstructive pulmonary disease) (Chronic) DVT of upper extremity (deep vein thrombosis) (Acute) Hypothyroid (Chronic) Lung cancer, primary, with metastasis from lung to other site (Chronic) Social History household members: family and caregiver Smoking Status: Current every day smoker alcohol intake: never Exam Initial Vital Signs Initial Vital Signs: Vital Signs Temperature 98.5 F 03/09/18 15:37 Pulse Rate 88 03/09/18 15:37 Respiratory Rate 34 H 03/09/18 15:37 Blood Pressure 86/71 L 03/09/18 15:37 Pulse Oximetry 93 03/09/18 15:37 Const General: cooperative and ill appearing ( chronically ill) Nutritional Appearance: thin Orientation: alert, awake and oriented x3 Eyes General: appearance normal, both eyes and all related structures Neck Neck: normal visual inspection, full ROM and no meningeal signs Chest Chest: normal inspection of the chest Resp Effort & Inspection: able to speak in complete sentences Auscultation: clear to auscultation bilaterally, diminished lung sounds, no rales, no rhonchi and no wheezes Cardio Rate: regular rate Rhythm: regular rhythm Heart Sounds: S1 normal and S2 normal Pulses: normal peripheral pulses GI Palpation: soft, No firm, No guarding and No tender Skin General: no rashes or lesions noted, No jaundice and No petechiae Neuro General: alert, oriented x3, gait normal and no focal motor deficits Speech: speech normal Course Orders Ordered: Discontinued Medications Albuterol/Ipratropium (Duoneb) 3 ml INH NOW ONE Stop: 03/09/18 15:38 Last Admin: 03/09/18 15:38 Dose: 3 ml Sodium Chloride (Normal Saline 0.9%) 1,000 mls @ 200 mls/hr IV CONT RENO Last Infusion: 03/09/18 17:40 Dose: 0 mls/hr Admin: 03/09/18 16:27 Dose: 200 mls/hr Levofloxacin (Levaquin) 750 mg PO NOW ONE Stop: 03/09/18 16:54 Last Admin: 03/09/18 17:10 Dose: 750 mg Methylprednisolone (Solu-Medrol 125 Mg Vial) 125 mg IV NOW ONE Stop: 03/09/18 15:54 Last Admin: 03/09/18 16:27 Dose: 125 mg Vital Signs - 8 hr 03/09/18 15:37 03/09/18 15:39 Temperature 98.5 F Pulse Rate 88 75 Respiratory Rate 34 H 18 Blood Pressure 86/71 L Pulse Oximetry 93 95 MDM - SOB/Dyspnea Medical Records Attestation: I reviewed the patient's medical records. Lab Data Attestation: I reviewed the patient's lab results. Result diagrams: 03/09/18 15:50 03/09/18 15:50 Lab Results 03/09/18 03/09/18 03/09/18 Range/Units 15:50 15:50 15:50 WBC 9.2 (4.5-11.0) X10^3/uL RBC 4.19 L (4.5-5.9) X10^6/uL Hgb 12.0 L (13.5-17.5) g/dL Hct 35.9 L (41-53) % MCV 85.6 (80-100) fL MCH 28.6 (26-34) PG MCHC 33.4 (30-36) % RDW 15.8 H (11.6-14.8) % Plt Count TNP Neut % (Auto) 60.5 (50-75) % Lymph % (Auto) 23.4 L (25-40) % Garrett % (Auto) 14.1 H (3-14) % Eos % (Auto) 0.5 L (2-4) % Baso % (Auto) 1.5 (0-2) % Neut # (Auto) 5600 (5084-2206) /uL PT 15.1 H (10.1-12.7) SECONDS INR 1.3 (0.9-1.3) APTT 32 D (26.4-36.2) SECONDS Sodium 138 (137-145) mmol/L Potassium 3.8 (3.4-5.1) mmol/L Chloride 101 (98-107) mmol/L Carbon Dioxide 25 (22-32) mmol/L BUN 11 (9-20) mg/dL Creatinine 0.80 (0.66-1.25) mg/dL Estimated GFR > 60.0 (>60) mL/min BUN/Creatinine Ratio 13.8 (6-22) Glucose 133 H (80-110) mg/dL Lactate (0.7-2.1) mmol/L Calcium 9.1 (8.4-10.2) mg/dL Total Bilirubin 0.6 (0.2-1.3) mg/dL AST 42 (17-59) IU/L ALT 41 (21-72) IU/L Alkaline Phosphatase 100 (38-126) U/L Total Protein 7.2 (6.3-8.2) g/dL Albumin 3.5 (3.5-5.0) g/dL Globulin 3.7 (1.7-4.1) g/dL Albumin/Globulin Ratio 0.9 L (1.0-2.8) 03/09/18 Range/Units 15:50 WBC (4.5-11.0) X10^3/uL RBC (4.5-5.9) X10^6/uL Hgb (13.5-17.5) g/dL Hct (41-53) % MCV (80-100) fL MCH (26-34) PG MCHC (30-36) % RDW (11.6-14.8) % Plt Count Neut % (Auto) (50-75) % Lymph % (Auto) (25-40) % Garrett % (Auto) (3-14) % Eos % (Auto) (2-4) % Baso % (Auto) (0-2) % Neut # (Auto) (3555-4432) /uL PT (10.1-12.7) SECONDS INR (0.9-1.3) APTT (26.4-36.2) SECONDS Sodium (137-145) mmol/L Potassium (3.4-5.1) mmol/L Chloride (98-107) mmol/L Carbon Dioxide (22-32) mmol/L BUN (9-20) mg/dL Creatinine (0.66-1.25) mg/dL Estimated GFR (>60) mL/min BUN/Creatinine Ratio (6-22) Glucose (80-110) mg/dL Lactate 1.9 (0.7-2.1) mmol/L Calcium (8.4-10.2) mg/dL Total Bilirubin (0.2-1.3) mg/dL AST (17-59) IU/L ALT (21-72) IU/L Alkaline Phosphatase (38-126) U/L Total Protein (6.3-8.2) g/dL Albumin (3.5-5.0) g/dL Globulin (1.7-4.1) g/dL Albumin/Globulin Ratio (1.0-2.8) Imaging Data CT chest: Radiologist's impression: [place] [id number] CT Scan Report Signed Patient: Yash Davila [facility]#: [id number] : 5Acct:[id number] Age/Sex: 63 / MDate of Service: 03/09/18 Loc: CT Accession Number: [id number] Procedure: CT chest wo con Ordering Provider: Thomas Young MD PROCEDURE: CT CHEST WO CON INDICATIONS: LUNG CANCER TECHNIQUE: Noncontrast 5 mm thick sections acquired from the pulmonary apices to the posterior costophrenic angles. 7 mm thick coronal and sagittal MIP reformats were then acquired. For radiation dose reduction, the following was used: automated exposure control, adjustment of mA and/or kV according to patient size. COMPARISON: [facility], CT, CT CHEST WO CON, 02/09/2018, 14:28. [facility], US, US PERIPH VENOUS LOW EXTREM BI, 01/19/2018, 20:53. [facility], CR, XR CHEST 1V, 01/19/2018, 20:01. [facility], CT, CT ANGIO CHEST PE PROTOCOL, 01/11/2018, 11:05. FINDINGS: Image quality: Excellent. Lungs and pleura: A large cavitary mass is again seen involving right lung apex. There is surrounding lung consolidation seen. Lung volume loss can be seen on the right side. This process is similar to the prior CT. Underlying emphysematous changes are seen. No significant pleural effusion is seen. There is narrowing of the right upper lobe bronchus. Mediastinum: Heart size is normal. A presumed coronary artery stent can be seen. No pericardial effusion. Slightly enlarged mediastinal lymph nodes are seen, which overall are improved compared to the teslas the 9th a CT examination. There is a subcarinal lymph node seen measures 13 x 21 mm. Thoracic aorta and central pulmonary arteries are normal in size. Esophagus is normal in caliber. There is a small hiatal hernia. Bones and chest wall: Lower cervical spine fixation hardware is seen. Pathologic fractures can be seen involving the right posterior medial 4th, 5th, and 6th ribs. Remote appearing fractures can be seen posteriorly on the left. There is a left-sided chest port is seen, with the tip within the medial left brachiocephalic vein. No vertebral body compression fractures. No axillary or supraclavicular adenopathy by size criteria. Thyroid gland is small in size. Abdomen: Visualized upper abdominal solid organs and bowel loops appear normal in the absence of contrast. IMPRESSION: Stable cavitary mass with surrounding compressed lung involving the right lung apex. Narrowing of the right upper lobe bronchus is seen. Mildly enlarged mediastinal lymph nodes are seen, which are improved compared to 01/11/18. Pathologic right posterior rib fractures. Remote, healed left posterior rib fractures are also seen. Emphysematous changes are seen. Incidental note is made of: Left-sided chest port Cervical spine fixation hardware Presumed coronary stent Small hiatal hernia Dictated by: Kelton Camilo M.D. on 03/09/2018 at 15:39 Approved by: Kelton Camilo M.D. on 03/09/2018 at 15:48 [facility] Narrative Medical decision making narrative: patient's blood pressure is chronically low. he does not appear septic or toxic. No leukocytosis. However he is having a productive cough, not previously on antibiotics. Will put him on antibiotics and steroids. The discussed with him admission versus going home patient like to go home. I do not suspect PE he is more complaining of productive cough consistent with infection. Discharge Plan Departure Patient Disposition: Home Clinical Impression: COPD (chronic obstructive pulmonary disease) Discharge Date/Time: 03/09/18 17:42 Interventions: ED Discharge Assessment Last Done: 03/09/18 17:41 Instructions: Chronic Obstructive Pulmonary Disease Activity Restrictions/Additional Instructions: *You have been diagnosed with COPD *What to do: Rest *Continue to take medications as directed: FAXED TO [facility] IN [place] -Levaquin 750 mg once a day for the next 7 days Prednisone 40 mg for 3 days, 30 mg for 3 days, mg for 3 days, 10 mg for 3 days *Follow up with your primary care provider in 2-3 days, follow up with Oncology as previously scheduled for tomorrow *Return to ER if you should have fever, worsening trouble breathing or any new, worsening or concerning symptoms Prescriptions: New prednisone 10 mg tablet 10 mg PO DAILY Qty: 30 RF: 0 levofloxacin [Levaquin] 750 mg tablet 750 mg PO DAILY Qty: 7 RF: 0 No Action magnesium oxide 400 MG tablet 400 mg PO QDAY Qty: 0 RF: 0 ipratropium-albuterol [Combivent Respimat] 4 GM mist 1 puff INH Q6HP PRNQty: 1 RF: 0 [DISABLED PARKING ] 1 ea X1 Qty: 1 RF: 0 polyethylene glycol 3350 [Miralax] 17 GM powder in packet 17 gm PO QDAY Qty: 30 RF: 2 lactulose 10 GM/15 ML solution 20 gm PO QDAY Qty: 200 RF: 2 acetaminophen 650 MG tablet extended release 650 mg PO Q8H Qty: 30 RF: 0 esomeprazole magnesium 20 MG capsule,delayed release(DR/EC) 20 mg PO QDAY Qty: 30 RF: 0 citalopram [Celexa] 20 mg Tablet 20 mg PO DAILY Qty: 90 RF: 1 pregabalin [Lyrica] 50 mg Capsule 50 mg PO TID Qty: 90 RF: 1 albuterol sulfate [Ventolin HFA] 90 MCG/PUFF HFA aerosol inhaler 1 puff INH Q6H Qty: 8 RF: 4 nicotine [Nicoderm CQ] 7 mg/24 hr Patch 24 Hour 1 patch TRANSDERMAL Q24H RF: 0 lactulose [Enulose] 10 gram/15 mL Solution 20 g PO TID PRN (Reason: constipation, severe) Qty: 120 RF: 1 levothyroxine 137 mcg Tablet 137 mcg PO DAILY Qty: 60 RF: 0 hydroxyzine HCl 25 MG tablet 25 - 50 mg PO Q6H PRN (Reason: Itching) Qty: 60 RF: 0 hydrocodone-acetaminophen 10-325 mg Tablet 1 tab PO Q4-6H PRN (Reason: pain with lung cancer) Qty: 90 RF: 0 potassium chloride 20 mEq tablet,ER particles/crystals 20 meq PO DAILY Qty: 5 RF: 0
--- NOTE | 2018-03-09 15:59 | ED_ITS ---
HPI - SOB/Dyspnea General Chief Complaint: Shortness of Breath/Dyspnea Stated Complaint: coughing alot Time Seen by Provider: 03/09/18 15:43 Source: patient and old records reviewed Mode of arrival: ambulatory Limitations: no limitations History of Present Illness Patient is a 63-year-old male with right upper lobe lung massAnd chest wall mass most consistent with adenocarcinoma measuring up to 6 cm. Currently being treated with nivolumab, last treatment 02/23/2018. Presenting today with increasing productive cough. He had an outpatient chest CT. He says he is a productive cough difficulty breathing. This is been ongoing for about a week. Told is oncologist he was not given any antibiotics at that time. He has progressively gotten worse. He feels fall like he has a productive cough which has changed his has shaking chills. MD Complaint: shortness of breath and cough Related Data Home Medications Medication Instructions Recorded Confirmed magnesium oxide 400 mg PO QDAY #0 12/04/15 01/27/18 nicotine [Nicoderm CQ] 1 patch TRANSDERMAL Q24H 01/20/18 01/27/18 Previous Rx's Medication Instructions Recorded ipratropium-albuterol [Combivent 1 puff INH Q6HP PRN #1 inh 04/13/16 Respimat] [DISABLED PARKING ] 1 ea X1 #1 ea 04/29/16 polyethylene glycol 3350 [Miralax] 17 gm PO QDAY #30 packet 06/10/16 lactulose 20 gm PO QDAY #200 ml 01/25/17 acetaminophen 650 mg PO Q8H #30 tab 02/16/17 esomeprazole magnesium 20 mg PO QDAY #30 cap 06/25/17 citalopram [Celexa] 20 mg PO DAILY #90 tab 10/29/17 pregabalin [Lyrica] 50 mg PO TID #90 cap 10/29/17 albuterol sulfate [Ventolin HFA] 1 puff INH Q6H #8 gm 11/25/17 potassium chloride 20 meq PO DAILY #5 tab 01/19/18 lactulose [Enulose] 20 g PO TID PRN #120 ml 01/20/18 levothyroxine 137 mcg PO DAILY #60 tab 01/20/18 hydroxyzine HCl 25 - 50 mg PO Q6H PRN #60 tab 02/03/18 hydrocodone-acetaminophen 1 tab PO Q4-6H PRN #90 tab 02/23/18 levofloxacin [Levaquin] 750 mg PO DAILY #7 tab 03/09/18 prednisone 10 mg PO DAILY #30 tab 03/09/18 Allergies Allergy/AdvReac Type Severity Reaction Status Date / Time aspirin [ASPIRIN] AdvReac Mild NAUSEA Verified 03/09/18 15:37 Review of Systems Review of Systems All systems reviewed & are unremarkable except as noted in HPI and below Constitutional Reports chills, Reports fatigue and Reports fever(s) Eyes Denies change in vision, Denies eye discharge, Denies irritation and Denies loss of vision ENT Ears, Nose, Mouth, and Throat: Denies change in voice, Denies neck pain and Denies sore throat Cardiovascular Denies chest pain, Denies irregular heart rhythm, Denies lightheadedness, Denies palpitations and Denies orthopnea Respiratory Reports as per HPI Gastrointestinal Gastrointestinal: Denies abdominal pain, Denies change in bowel habits, Denies diarrhea, Denies nausea and Denies vomiting Musculoskeletal Denies neck pain Integumentary/Breasts Denies pruritus, Denies erythema, Denies rash and Denies wounds Neurologic Denies loss of vision Endocrine Reports fatigue and Denies palpitations PFSH Medical History COPD (chronic obstructive pulmonary disease) (Chronic) DVT of upper extremity (deep vein thrombosis) (Acute) Hypothyroid (Chronic) Lung cancer, primary, with metastasis from lung to other site (Chronic) Social History household members: family and caregiver Smoking Status: Current every day smoker alcohol intake: never Exam Initial Vital Signs Initial Vital Signs: Vital Signs Temperature 98.5 F 03/09/18 15:37 Pulse Rate 88 03/09/18 15:37 Respiratory Rate 34 H 03/09/18 15:37 Blood Pressure 86/71 L 03/09/18 15:37 Pulse Oximetry 93 03/09/18 15:37 Const General: cooperative and ill appearing ( chronically ill) Nutritional Appearance: thin Orientation: alert, awake and oriented x3 Eyes General: appearance normal, both eyes and all related structures Neck Neck: normal visual inspection, full ROM and no meningeal signs Chest Chest: normal inspection of the chest Resp Effort & Inspection: able to speak in complete sentences Auscultation: clear to auscultation bilaterally, diminished lung sounds, no rales, no rhonchi and no wheezes Cardio Rate: regular rate Rhythm: regular rhythm Heart Sounds: S1 normal and S2 normal Pulses: normal peripheral pulses GI Palpation: soft, No firm, No guarding and No tender Skin General: no rashes or lesions noted, No jaundice and No petechiae Neuro General: alert, oriented x3, gait normal and no focal motor deficits Speech: speech normal Course Orders Ordered: Discontinued Medications Albuterol/Ipratropium (Duoneb) 3 ml INH NOW ONE Stop: 03/09/18 15:38 Last Admin: 03/09/18 15:38 Dose: 3 ml Sodium Chloride (Normal Saline 0.9%) 1,000 mls @ 200 mls/hr IV CONT RENO Last Infusion: 03/09/18 17:40 Dose: 0 mls/hr Admin: 03/09/18 16:27 Dose: 200 mls/hr Levofloxacin (Levaquin) 750 mg PO NOW ONE Stop: 03/09/18 16:54 Last Admin: 03/09/18 17:10 Dose: 750 mg Methylprednisolone (Solu-Medrol 125 Mg Vial) 125 mg IV NOW ONE Stop: 03/09/18 15:54 Last Admin: 03/09/18 16:27 Dose: 125 mg Vital Signs - 8 hr 03/09/18 15:37 03/09/18 15:39 Temperature 98.5 F Pulse Rate 88 75 Respiratory Rate 34 H 18 Blood Pressure 86/71 L Pulse Oximetry 93 95 MDM - SOB/Dyspnea Medical Records Attestation: I reviewed the patient's medical records. Lab Data Attestation: I reviewed the patient's lab results. Result diagrams: 03/09/18 15:50 03/09/18 15:50 Lab Results 03/09/18 03/09/18 03/09/18 Range/Units 15:50 15:50 15:50 WBC 9.2 (4.5-11.0) X10^3/uL RBC 4.19 L (4.5-5.9) X10^6/uL Hgb 12.0 L (13.5-17.5) g/dL Hct 35.9 L (41-53) % MCV 85.6 (80-100) fL MCH 28.6 (26-34) PG MCHC 33.4 (30-36) % RDW 15.8 H (11.6-14.8) % Plt Count TNP Neut % (Auto) 60.5 (50-75) % Lymph % (Auto) 23.4 L (25-40) % [place] % (Auto) 14.1 H (3-14) % Eos % (Auto) 0.5 L (2-4) % Baso % (Auto) 1.5 (0-2) % Neut # (Auto) 5600 (4396-7107) /uL PT 15.1 H (10.1-12.7) SECONDS INR 1.3 (0.9-1.3) APTT 32 D (26.4-36.2) SECONDS Sodium 138 (137-145) mmol/L Potassium 3.8 (3.4-5.1) mmol/L Chloride 101 (98-107) mmol/L Carbon Dioxide 25 (22-32) mmol/L BUN 11 (9-20) mg/dL Creatinine 0.80 (0.66-1.25) mg/dL Estimated GFR > 60.0 (>60) mL/min BUN/Creatinine Ratio 13.8 (6-22) Glucose 133 H (80-110) mg/dL Lactate (0.7-2.1) mmol/L Calcium 9.1 (8.4-10.2) mg/dL Total Bilirubin 0.6 (0.2-1.3) mg/dL AST 42 (17-59) IU/L ALT 41 (21-72) IU/L Alkaline Phosphatase 100 (38-126) U/L Total Protein 7.2 (6.3-8.2) g/dL Albumin 3.5 (3.5-5.0) g/dL Globulin 3.7 (1.7-4.1) g/dL Albumin/Globulin Ratio 0.9 L (1.0-2.8) 03/09/18 Range/Units 15:50 WBC (4.5-11.0) X10^3/uL RBC (4.5-5.9) X10^6/uL Hgb (13.5-17.5) g/dL Hct (41-53) % MCV (80-100) fL MCH (26-34) PG MCHC (30-36) % RDW (11.6-14.8) % Plt Count Neut % (Auto) (50-75) % Lymph % (Auto) (25-40) % [place] % (Auto) (3-14) % Eos % (Auto) (2-4) % Baso % (Auto) (0-2) % Neut # (Auto) (5239-8715) /uL PT (10.1-12.7) SECONDS INR (0.9-1.3) APTT (26.4-36.2) SECONDS Sodium (137-145) mmol/L Potassium (3.4-5.1) mmol/L Chloride (98-107) mmol/L Carbon Dioxide (22-32) mmol/L BUN (9-20) mg/dL Creatinine (0.66-1.25) mg/dL Estimated GFR (>60) mL/min BUN/Creatinine Ratio (6-22) Glucose (80-110) mg/dL Lactate 1.9 (0.7-2.1) mmol/L Calcium (8.4-10.2) mg/dL Total Bilirubin (0.2-1.3) mg/dL AST (17-59) IU/L ALT (21-72) IU/L Alkaline Phosphatase (38-126) U/L Total Protein (6.3-8.2) g/dL Albumin (3.5-5.0) g/dL Globulin (1.7-4.1) g/dL Albumin/Globulin Ratio (1.0-2.8) Imaging Data CT chest: Radiologist's impression: [place] [address] CT Scan Report Signed Patient: Yash Davila [facility]#: [id number] : 5Acct:[id number] Age/Sex: 63 / MDate of Service: 03/09/18 Loc: CT Accession Number: [id number] Procedure: CT chest wo con Ordering Provider: Thomas Young MD PROCEDURE: CT CHEST WO CON INDICATIONS: LUNG CANCER TECHNIQUE: Noncontrast 5 mm thick sections acquired from the pulmonary apices to the posterior costophrenic angles. 7 mm thick coronal and sagittal MIP reformats were then acquired. For radiation dose reduction, the following was used: automated exposure control, adjustment of mA and/or kV according to patient size. COMPARISON: [facility], CT, CT CHEST WO CON, 02/09/2018, 14:28. [facility], US, US PERIPH VENOUS LOW EXTREM BI, 01/19/2018, 20:53. [facility], CR, XR CHEST 1V, 01/19/2018, 20:01. [facility], CT, CT ANGIO CHEST PE PROTOCOL, 01/11/2018 , 11:05. FINDINGS: Image quality: Excellent. Lungs and pleura: A large cavitary mass is again seen involving right lung apex. There is surrounding lung consolidation seen. Lung volume loss can be seen on the right side. This process is similar to the prior CT. Underlying emphysematous changes are seen. No significant pleural effusion is seen. There is narrowing of the right upper lobe bronchus. Mediastinum: Heart size is normal. A presumed coronary artery stent can be seen. No pericardial effusion. Slightly enlarged mediastinal lymph nodes are seen, which overall are improved compared to the teslas the 9th a CT examination. There is a subcarinal lymph node seen measures 13 x 21 mm. Thoracic aorta and central pulmonary arteries are normal in size. Esophagus is normal in caliber. There is a small hiatal hernia. Bones and chest wall: Lower cervical spine fixation hardware is seen. Pathologic fractures can be seen involving the right posterior medial 4th, 5th, and 6th ribs. Remote appearing fractures can be seen posteriorly on the left. There is a left -sided chest port is seen, with the tip within the medial left brachiocephalic vein. No vertebral body compression fractures. No axillary or supraclavicular adenopathy by size criteria. Thyroid gland is small in size. Abdomen: Visualized upper abdominal solid organs and bowel loops appear normal in the absence of contrast. IMPRESSION: Stable cavitary mass with surrounding compressed lung involving the right lung apex. Narrowing of the right upper lobe bronchus is seen. Mildly enlarged mediastinal lymph nodes are seen, which are improved compared to 01/11/18. Pathologic right posterior rib fractures. Remote, healed left posterior rib fractures are also seen. Emphysematous changes are seen. Incidental note is made of: Left-sided chest port Cervical spine fixation hardware Presumed coronary stent Small hiatal hernia Dictated by: Kelton Camilo M.D. on 03/09/2018 at 15:39 Approved by: Kelton Camilo M.D. on 03/09/2018 at 15:48 [facility] Narrative Medical decision making narrative: patient's blood pressure is chronically low. he does not appear septic or toxic. No leukocytosis. However he is having a productive cough, not previously on antibiotics. Will put him on antibiotics and steroids. The discussed with him admission versus going home patient like to go home. I do not suspect PE he is more complaining of productive cough consistent with infection. Discharge Plan Departure Patient Disposition: Home Clinical Impression: COPD (chronic obstructive pulmonary disease) Discharge Date/Time: 03/09/18 17:42 Interventions: ED Discharge Assessment Last Done: 03/09/18 17:41 Instructions: Chronic Obstructive Pulmonary Disease Activity Restrictions/Additional Instructions: *You have been diagnosed with COPD *What to do: Rest *Continue to take medications as directed: FAXED TO [facility] [place] -Levaquin 750 mg once a day for the next 7 days Prednisone 40 mg for 3 days, 30 mg for 3 days, mg for 3 days, 10 mg for 3 days *Follow up with your primary care provider in 2-3 days, follow up with Oncology as previously scheduled for tomorrow *Return to ER if you should have fever, worsening trouble breathing or any new, worsening or concerning symptoms Prescriptions: New prednisone 10 mg tablet 10 mg PO DAILY Qty: 30 RF: 0 levofloxacin [Levaquin] 750 mg tablet 750 mg PO DAILY Qty: 7 RF: 0 No Action magnesium oxide 400 MG tablet 400 mg PO QDAY Qty: 0 RF: 0 ipratropium-albuterol [Combivent Respimat] 4 GM mist 1 puff INH Q6HP PRNQty: 1 RF: 0 [DISABLED PARKING ] 1 ea X1 Qty: 1 RF: 0 polyethylene glycol 3350 [Miralax] 17 GM powder in packet 17 gm PO QDAY Qty: 30 RF: 2 lactulose 10 GM/15 ML solution 20 gm PO QDAY Qty: 200 RF: 2 acetaminophen 650 MG tablet extended release 650 mg PO Q8H Qty: 30 RF: 0 esomeprazole magnesium 20 MG capsule,delayed release(DR/EC) 20 mg PO QDAY Qty: 30 RF: 0 citalopram [Celexa] 20 mg Tablet 20 mg PO DAILY Qty: 90 RF: 1 pregabalin [Lyrica] 50 mg Capsule 50 mg PO TID Qty: 90 RF: 1 albuterol sulfate [Ventolin HFA] 90 MCG/PUFF HFA aerosol inhaler 1 puff INH Q6H Qty: 8 RF: 4 nicotine [Nicoderm CQ] 7 mg/24 hr Patch 24 Hour 1 patch TRANSDERMAL Q24H RF: 0 lactulose [Enulose] 10 gram/15 mL Solution 20 g PO TID PRN (Reason: constipation, severe) Qty: 120 RF: 1 levothyroxine 137 mcg Tablet 137 mcg PO DAILY Qty: 60 RF: 0 hydroxyzine HCl 25 MG tablet 25 - 50 mg PO Q6H PRN (Reason: Itching) Qty: 60 RF: 0 hydrocodone-acetaminophen 10-325 mg Tablet 1 tab PO Q4-6H PRN (Reason: pain with lung cancer) Qty: 90 RF: 0 potassium chloride 20 mEq tablet,ER particles/crystals 20 meq PO DAILY Qty: 5 RF: 0
--- NOTE | 2018-03-09 16:16 | PC.NURSE ---
lung cancer with mass right lobe with pus, with oncology last week, not treated with antibiotics. today had chest ct, then pt came to ER. denies fever, reports diaphoresis at night, denies fever and vomiting. diagnoses with cancer 2 years ago. reports weight lost 30 ounds in 3 months. decrease of appetite.
--- NOTE | 2018-03-09 16:18 | PC.NURSE ---
pt reports usually has bp 100's.
[2018-03-09 16:21] LABS: INR 1.3 (0.9-1.3); Prothrombin Time 15.1 SECONDS (10.1-12.7)
[2018-03-09 16:23] LABS: Add Manual Diff / Slide Review NO; Basophils Percent Auto 1.5 % (0-2); Eosinophils Percent Auto 0.5 % (2-4); Hematocrit 35.9 % (41-53); Lactate (Lactic Acid) 1.9 mmol/L (0.7-2.1); Lymphocytes Percent Auto 23.4 % (25-40); Mean Corpuscular HGB Conc 33.4 % (30-36); Mean Corpuscular Hemoglobin 28.6 PG (26-34); Mean Corpuscular Volume 85.6 fL (80-100); Monocytes Percent Auto 14.1 % (3-14); Neutrophils Absolute Auto 5600 /uL (3000-5900); Neutrophils Percent Auto 60.5 % (50-75); PTT Partial Thromboplastin Tim 32 SECONDS (26.4-36.2); Red Blood Cell Count 4.19 X10^6/uL (4.5-5.9); Red Cell Distribution Width 15.8 % (11.6-14.8); White Blood Cell Count 9.2 X10^3/uL (4.5-11.0)
[2018-03-09 16:24] LABS: Alanine Aminotransferase 41 IU/L (21-72); Albumin 3.5 g/dL (3.5-5.0); Albumin Globulin Ratio 0.9 (1.0-2.8); Alkaline Phosphatase 100 U/L (38-126); Aspartate Aminotransferase 42 IU/L (17-59); BUN Creatinine Ratio 13.8 (6-22); Bilirubin Total 0.6 mg/dL (0.2-1.3); Blood Urea Nitrogen 11 mg/dL (9-20); Calcium 9.1 mg/dL (8.4-10.2); Carbon Dioxide 25 mmol/L (22-32); Chloride 101 mmol/L (98-107); Estimated Glomerular Filt Rate > 60.0 mL/min (>60); Globulin 3.7 g/dL (1.7-4.1); Glucose 133 mg/dL (80-110); HEMOLYSIS < 15 (0-50); Potassium 3.8 mmol/L (3.4-5.1); Sodium 138 mmol/L (137-145); Total Protein 7.2 g/dL (6.3-8.2)
[2018-03-09] MEDS: SODIUM CHLORIDE 0.9% 1,000 ML 200 ML IV (16:27)
[2018-03-09] MEDS: methylPREDNISolone 125 MG/2 ML VIAL IV (16:27)
[2018-03-09] MEDS: levoFLOXacin 250 MG TABLET 750 MG PO (17:10)
[2018-03-09 17:41] VITALS: BP 87/60; PULSE 66; RESP 20; O2SAT 95
== END 2018-03-09 17:42 | disposition home or self-care (01) ==
PROVIDERS: Emergency Provider Emergency Medicine
DX: J44.9 Chronic obstructive pulmonary disease, unspecified (principal); C34.91 Malignant neoplasm of unspecified part of right bronchus or lung
CPT/HCPCS: 36415; 36591; 71250; 80053; 83605; 85025; 85610; 85730; 87040; 93041; 94640; 96361; 96374; 99284; J2930

== ENCOUNTER 2018-03-18 13:25 | Inpatient (IN) | payer MEDICAID, SELFPAY ==
[2018-01-11 15:43] VITALS: BMI 17.8
[2018-03-18] VITALS (10 sets, daily range): BP systolic 87–119; BP diastolic 55–70; PULSE 61–94; RESP 17–26; TEMP 36.7–37; O2SAT 93–98; BMI 17.8
--- NOTE | 2018-03-18 13:59 | ED.ABDPAIN ---
HPI - Abdominal Pain <GEORGE Rios - Last Filed: 03/18/18 22:10> General Chief Complaint: Abdominal Pain Stated Complaint: stomach hurts bad, breathing is not well, cancer Time Seen by Provider: 03/18/18 13:53 Source: patient Mode of arrival: ambulatory Limitations: no limitations History of Present Illness HPI narrative: 63-year-old male with history of lung cancer with metastasis and is an everyday smoker here for complaint of a having shortness of breath over the past several weeks. He also complains of having right lower quadrant pain over the past several days. He also complains that there is a little bit of burning with urination. He reports decreased p.o. intake. He denies having a fever. Last bowel movement was yesterday and was unremarkable. he denies any vomiting. He reports that his cough has been productive. He was seen last week in the emergency room for shortness of breath and cough he was put on a prednisone taper dose and is currently taking any completed a course of Levaquin. He denies any chest pain. He denies any flank pain. He denies any stressors or relievers of his pain. Reports that he is having difficulty completing his ADLs due to feeling weak and short of breath Related Data Home Medications Medication Instructions Recorded Confirmed albuterol sulfate [ProAir HFA] 1 puff INH Q6H 03/18/18 03/18/18 esomeprazole magnesium 20 mg PO DAILY 03/18/18 03/18/18 Previous Rx's Medication Instructions Recorded [DISABLED PARKING ] 1 ea X1 #1 ea 04/29/16 acetaminophen 650 mg PO Q8H #30 tab 02/16/17 citalopram [Celexa] 20 mg PO DAILY #90 tab 10/29/17 pregabalin [Lyrica] 50 mg PO TID #90 cap 10/29/17 lactulose [Enulose] 20 g PO TID PRN #120 ml 01/20/18 levothyroxine 137 mcg PO DAILY #60 tab 01/20/18 hydroxyzine HCl 25 - 50 mg PO Q6H PRN #60 tab 02/03/18 hydrocodone-acetaminophen 1 tab PO Q4-6H PRN #90 tab 02/23/18 levofloxacin [Levaquin] 750 mg PO DAILY #7 tab 03/09/18 prednisone 10 mg PO DAILY #30 tab 03/09/18 oxycodone 10 mg PO Q4-6H PRN #60 tab 03/10/18 Allergies Allergy/AdvReac Type Severity Reaction Status Date / Time aspirin [ASPIRIN] AdvReac Mild NAUSEA Verified 03/18/18 13:36 Review of Systems <GEORGE Rios - Last Filed: 03/18/18 22:10> Constitutional Denies chills, Denies fever(s), Denies lethargy and Denies weakness Eyes Denies change in vision, Denies eye discharge, Denies irritation and Denies loss of vision ENT Ears, Nose, Mouth, and Throat: Denies change in voice, Denies neck pain, Denies sore throat and Denies throat swelling Cardiovascular Denies chest pain, Denies irregular heart rhythm, Denies lightheadedness, Denies palpitations, Reports dyspnea and Denies orthopnea Respiratory Reports cough, Reports dyspnea and Denies wheezing Gastrointestinal Gastrointestinal: Reports abdominal pain, Denies change in bowel habits, Denies diarrhea, Denies nausea and Denies vomiting Genitourinary Denies hematuria, Denies flank pain, Denies urinary incontinence and Denies urinary urgency Musculoskeletal Denies neck pain Integumentary/Breasts Denies pruritus, Denies erythema, Denies rash and Denies wounds Neurologic Denies confusion, Denies loss of vision and Denies weakness Psychiatric Denies anxiety, Denies confusion, Denies depression, Denies homicidal ideation and Denies suicidal ideation Endocrine Denies palpitations Hematologic/Lymphatic Denies easy bruising Allergic/Immunologic Denies urticaria, Denies throat swelling and Denies wheezing Exam <GEORGE Rios - Last Filed: 03/18/18 22:10> Initial Vital Signs Initial Vital Signs: Vital Signs Temperature 98.1 F 03/18/18 13:36 Pulse Rate 94 H 03/18/18 13:36 Respiratory Rate 24 03/18/18 13:36 Blood Pressure 90/63 03/18/18 13:36 Pulse Oximetry 98 03/18/18 13:36 Const General: cooperative Orientation: alert, awake, oriented x3 and not confused [facility] Mouth: oral mucosae normal and moist mucous membranes Eyes General: appearance normal, both eyes and all related structures Eyelids: eyelids normal Conjunctivae: conjunctivae normal Sclera: sclerae normal Pupils: PERRL EOM: EOM intact bilaterally Resp Effort & Inspection: normal respiratory effort, able to speak in complete sentences, no respiratory distress and no use of accessory muscles Auscultation: rales, no rhonchi and no wheezes Cardio Rate: regular rate Rhythm: regular rhythm Heart Sounds: no click, no gallops, no murmurs and no rubs Pulses: normal peripheral pulses GI Other: right lower quadrant tenderness Skin General: no rashes or lesions noted, No jaundice and No petechiae <Bhavik Chamorro DO - Last Filed: 03/19/18 09:41> Initial Vital Signs Initial Vital Signs: Vital Signs Temperature 98.1 F 03/18/18 13:36 Pulse Rate 94 H 03/18/18 13:36 Respiratory Rate 24 03/18/18 13:36 Blood Pressure 90/63 03/18/18 13:36 Pulse Oximetry 98 03/18/18 13:36 Course <GEORGE Rios - Last Filed: 03/18/18 22:10> Orders Ordered: ED Orders 03/19/18 06:07 Complete Blood Count AUTO DIFF DAILY Comprehensive Metabolic Panel DAILY 03/20/18 05:30 Complete Blood Count AUTO DIFF DAILY 03/21/18 05:30 Complete Blood Count AUTO DIFF DAILY Acetaminophen (Tylenol) 650 mg PO Q6HR PRN PRN Reason: As Needed for Fever/Mild Pain Albuterol (Ventolin Hfa) 1 puff INH Q6H [facility] Last Admin: 03/19/18 06:19 Dose: Not Given Admin: 03/19/18 01:15 Dose: Not Given Albuterol/Ipratropium (Duoneb) 3 ml INH [id number] [facility] Last Admin: 03/19/18 06:19 Dose: 3 ml Admin: 03/18/18 19:36 Dose: 3 ml Citalopram Hydrobromide (Celexa) 20 mg PO DAILY [facility] Last Admin: 03/19/18 09:12 Dose: 20 mg Enoxaparin Sodium (Lovenox) 40 mg SUBCUT DAILY [facility] Last Admin: 03/19/18 09:12 Dose: 40 mg Sodium Chloride (Normal Saline 0.9%) 1,000 mls @ 80 mls/hr IV CONT [facility] Last Admin: 03/19/18 08:04 Dose: 80 mls/hr Infusion: 03/19/18 08:01 Dose: 80 mls/hr Admin: 03/18/18 19:31 Dose: 80 mls/hr Lactulose (Enulose) 20 gm PO TID PRN PRN Reason: Constipation Levothyroxine Sodium (Synthroid) 137 mcg PO QACBREAK [facility] Last Admin: 03/19/18 09:12 Dose: 137 mcg Magnesium Citrate (Magnesium Citrate) 150 ml PO DAILY PRN PRN Reason: Constipation Magnesium Hydroxide (Milk Of Magnesia) 30 ml PO DAILY PRN PRN Reason: Constipation Morphine Sulfate (Morphine) 2 mg IV Q4HR PRN PRN Reason: Pain, Moderate (4-6) Naloxone HCl (Narcan) 0.2 mg IV Q2MIN PRN PRN Reason: Opiate Reversal Nicotine (Nicoderm) 7 mg TOP DAILY [facility] Last Admin: 03/19/18 09:13 Dose: 7 mg Ondansetron HCl (Zofran) 4 mg IV Q8HR PRN PRN Reason: Nausea And Vomiting Oxycodone HCl (Percolone) 10 mg PO Q4H PRN PRN Reason: cancer pain Last Admin: 03/19/18 09:10 Dose: 10 mg Admin: 03/19/18 04:20 Dose: 10 mg Admin: 03/19/18 00:20 Dose: 10 mg Pantoprazole Sodium (Protonix) 20 mg PO 0600 [facility] Last Admin: 03/19/18 06:22 Dose: 20 mg Polyethylene Glycol (Miralax) 17 gm PO BID [facility] Prednisone (Deltasone) 40 mg PO DAILY [facility] Last Admin: 03/19/18 09:13 Dose: 40 mg Sennosides (Senna) 17.2 mg PO BEDTIME [facility] Last Admin: 03/18/18 20:35 Dose: 17.2 mg Sennosides (Senna) 17.2 mg PO BID [facility] Sodium Biphosphate/Sodium Phosphate (Fleet Enema) 1 each MT DAILY PRN PRN Reason: Constipation Discontinued Medications Bisacodyl (Dulcolax) 10 mg MT NOW ONE Stop: 03/18/18 17:24 Last Admin: 03/18/18 19:38 Dose: 10 mg Diphenhydramine HCl (Benadryl) 25 mg IV Q6HR PRN PRN Reason: NAUSEA AND ITCHING Hydromorphone HCl (Dilaudid) 1 mg IV NOW ONE Stop: 03/18/18 15:15 Last Admin: 03/18/18 15:27 Dose: 1 mg Sodium Chloride (Normal Saline 0.9%) 1,000 mls @ 1,000 mls/hr IV BOLUS ONE Stop: 03/18/18 15:09 Last Infusion: 03/18/18 15:46 Dose: 0 mls/hr Admin: 03/18/18 14:54 Dose: 1,000 mls/hr Magnesium Sulfate (Magnesium Sulfate) 2 gm in 50 mls @ 25 mls/hr IV NOW ONE Stop: 03/19/18 00:20 Last Admin: 03/19/18 00:02 Dose: 25 mls/hr Polyethylene Glycol (Miralax) 17 gm PO NOW ONE Stop: 03/18/18 17:24 Last Admin: 03/18/18 19:38 Dose: 17 gm Vital Signs - 8 hr 03/19/18 03:52 03/19/18 04:04 03/19/18 06:19 Temperature 98.4 F Pulse Rate 79 65 Respiratory Rate 19 16 Blood Pressure 106/72 Pulse Oximetry 95 94 98 03/19/18 08:00 Temperature 98.3 F Pulse Rate 79 Respiratory Rate 16 Blood Pressure 118/61 Pulse Oximetry 98 <Bhavik Chamorro, DO - Last Filed: 03/19/18 09:41> Orders Ordered: ED Orders 03/19/18 06:07 Complete Blood Count AUTO DIFF DAILY Comprehensive Metabolic Panel DAILY 03/20/18 05:30 Complete Blood Count AUTO DIFF DAILY 03/21/18 05:30 Complete Blood Count AUTO DIFF DAILY Acetaminophen (Tylenol) 650 mg PO Q6HR PRN PRN Reason: As Needed for Fever/Mild Pain Albuterol (Ventolin Hfa) 1 puff INH Q6H [facility] Last Admin: 03/19/18 06:19 Dose: Not Given Admin: 03/19/18 01:15 Dose: Not Given Albuterol/Ipratropium (Duoneb) 3 ml INH [id number] [facility] Last Admin: 03/19/18 06:19 Dose: 3 ml Admin: 03/18/18 19:36 Dose: 3 ml Citalopram Hydrobromide (Celexa) 20 mg PO DAILY [facility] Last Admin: 03/19/18 09:12 Dose: 20 mg Enoxaparin Sodium (Lovenox) 40 mg SUBCUT DAILY [facility] Last Admin: 03/19/18 09:12 Dose: 40 mg Sodium Chloride (Normal Saline 0.9%) 1,000 mls @ 80 mls/hr IV CONT [facility] Last Admin: 03/19/18 08:04 Dose: 80 mls/hr Infusion: 03/19/18 08:01 Dose: 80 mls/hr Admin: 03/18/18 19:31 Dose: 80 mls/hr Lactulose (Enulose) 20 gm PO TID PRN PRN Reason: Constipation Levothyroxine Sodium (Synthroid) 137 mcg PO QACBREAK [facility] Last Admin: 03/19/18 09:12 Dose: 137 mcg Magnesium Citrate (Magnesium Citrate) 150 ml PO DAILY PRN PRN Reason: Constipation Magnesium Hydroxide (Milk Of Magnesia) 30 ml PO DAILY PRN PRN Reason: Constipation Morphine Sulfate (Morphine) 2 mg IV Q4HR PRN PRN Reason: Pain, Moderate (4-6) Naloxone HCl (Narcan) 0.2 mg IV Q2MIN PRN PRN Reason: Opiate Reversal Nicotine (Nicoderm) 7 mg TOP DAILY [facility] Last Admin: 03/19/18 09:13 Dose: 7 mg Ondansetron HCl (Zofran) 4 mg IV Q8HR PRN PRN Reason: Nausea And Vomiting Oxycodone HCl (Percolone) 10 mg PO Q4H PRN PRN Reason: cancer pain Last Admin: 03/19/18 09:10 Dose: 10 mg Admin: 03/19/18 04:20 Dose: 10 mg Admin: 03/19/18 00:20 Dose: 10 mg Pantoprazole Sodium (Protonix) 20 mg PO 0600 [facility] Last Admin: 03/19/18 06:22 Dose: 20 mg Polyethylene Glycol (Miralax) 17 gm PO BID [facility] Prednisone (Deltasone) 40 mg PO DAILY [facility] Last Admin: 03/19/18 09:13 Dose: 40 mg Sennosides (Senna) 17.2 mg PO BEDTIME [facility] Last Admin: 03/18/18 20:35 Dose: 17.2 mg Sennosides (Senna) 17.2 mg PO BID [facility] Sodium Biphosphate/Sodium Phosphate (Fleet Enema) 1 each MT DAILY PRN PRN Reason: Constipation Discontinued Medications Bisacodyl (Dulcolax) 10 mg MT NOW ONE Stop: 12/14/18 17:24 Last Admin: 03/18/18 19:38 Dose: 10 mg Diphenhydramine HCl (Benadryl) 25 mg IV Q6HR PRN PRN Reason: NAUSEA AND ITCHING Hydromorphone HCl (Dilaudid) 1 mg IV NOW ONE Stop: 03/18/18 15:15 Last Admin: 03/18/18 15:27 Dose: 1 mg Sodium Chloride (Normal Saline 0.9%) 1,000 mls @ 1,000 mls/hr IV BOLUS ONE Stop: 03/18/18 15:09 Last Infusion: 03/18/18 15:46 Dose: 0 mls/hr Admin: 03/18/18 14:54 Dose: 1,000 mls/hr Magnesium Sulfate (Magnesium Sulfate) 2 gm in 50 mls @ 25 mls/hr IV NOW ONE Stop: 03/19/18 00:20 Last Admin: 03/19/18 00:02 Dose: 25 mls/hr Polyethylene Glycol (Miralax) 17 gm PO NOW ONE Stop: 03/18/18 17:24 Last Admin: 03/18/18 19:38 Dose: 17 gm Vital Signs - 8 hr 03/19/18 03:52 03/19/18 04:04 03/19/18 06:19 Temperature 98.4 F Pulse Rate 79 65 Respiratory Rate 19 16 Blood Pressure 106/72 Pulse Oximetry 95 94 98 03/19/18 08:00 Temperature 98.3 F Pulse Rate 79 Respiratory Rate 16 Blood Pressure 118/61 Pulse Oximetry 98 MDM - Abdominal Pain <GEORGE Rios - Last Filed: 03/18/18 22:10> Lab Data Result diagrams: 03/19/18 06:07 03/19/18 06:07 Lab Results 03/18/18 03/18/18 03/18/18 Range/Units 14:30 14:30 14:30 WBC 16.9 H (4.5-11.0) X10^3/uL RBC 4.65 (4.5-5.9) X10^6/uL Hgb 12.9 L (13.5-17.5) g/dL Hct 39.7 L (41-53) % MCV 85.4 (80-100) fL MCH 27.8 (26-34) PG MCHC 32.5 (30-36) % RDW 16.3 H (11.6-14.8) % Plt Count 383 (150-400) X10^3/uL Neut % (Auto) 78.6 H (50-75) % Lymph % (Auto) 13.4 L (25-40) % [place] % (Auto) 7.3 (3-14) % Eos % (Auto) 0.1 L (2-4) % Baso % (Auto) 0.6 (0-2) % Neut # (Auto) 94785 H (0175-9951) /uL PT 13.1 H (10.1-12.7) SECONDS INR 1.1 (0.9-1.3) Sodium 135 L (137-145) mmol/L Potassium 4.0 (3.4-5.1) mmol/L Chloride 94 L (98-107) mmol/L Carbon Dioxide 29 (22-32) mmol/L BUN 15 (9-20) mg/dL Creatinine 0.80 (0.66-1.25) mg/dL Estimated GFR > 60.0 (>60) mL/min BUN/Creatinine Ratio 18.8 (6-22) Glucose 109 (80-110) mg/dL Lactate (0.7-2.1) mmol/L Calcium 9.0 (8.4-10.2) mg/dL Phosphorus 3.6 (2.3-3.7) mg/dL Magnesium 1.6 (1.6-2.3) mg/dL Total Bilirubin 0.9 (0.2-1.3) mg/dL AST 45 (17-59) IU/L ALT 60 (21-72) IU/L Alkaline Phosphatase 96 (38-126) U/L C-Reactive Protein (<1.0) mg/dL Total Protein 7.1 (6.3-8.2) g/dL Albumin 3.7 (3.5-5.0) g/dL Globulin 3.4 (1.7-4.1) g/dL Albumin/Globulin Ratio 1.1 (1.0-2.8) Lipase 53 (23-300) U/L Procalcitonin (<0.5) ng/mL TSH (0.47-4.68) uIU/mL Urine Color Urine Appearance Urine pH (4.5-8.0) Ur Specific Tim[place] (1.000-1.035) Urine Protein (Negative) Urine Glucose (UA) (Normal) g/dL Urine Ketones (NEGATIVE) Urine Occult Blood (Negative) Urine Nitrate (Negative) Urine Bilirubin (NEGATIVE) Urine Urobilinogen (0.2) E.U./dL Ur Leukocyte Esterase (NEGATIVE) Urine RBC (0-5/HPF) Urine WBC (0-5/HPF) Urine Bacteria (None) Ur Culture Indicated? Micro UA Comment 03/18/18 03/18/18 03/18/18 Range/Units 14:30 14:30 19:55 WBC (4.5-11.0) X10^3/uL RBC (4.5-5.9) X10^6/uL Hgb (13.5-17.5) g/dL Hct (41-53) % MCV (80-100) fL MCH (26-34) PG MCHC (30-36) % RDW (11.6-14.8) % Plt Count (150-400) X10^3/uL Neut % (Auto) (50-75) % Lymph % (Auto) (25-40) % [place] % (Auto) (3-14) % Eos % (Auto) (2-4) % Baso % (Auto) (0-2) % Neut # (Auto) (2091-8450) /uL PT (10.1-12.7) SECONDS INR (0.9-1.3) Sodium (137-145) mmol/L Potassium (3.4-5.1) mmol/L Chloride (98-107) mmol/L Carbon Dioxide (22-32) mmol/L BUN (9-20) mg/dL Creatinine (0.66-1.25) mg/dL Estimated GFR (>60) mL/min BUN/Creatinine Ratio (6-22) Glucose (80-110) mg/dL Lactate (0.7-2.1) mmol/L Calcium (8.4-10.2) mg/dL Phosphorus (2.3-3.7) mg/dL Magnesium (1.6-2.3) mg/dL Total Bilirubin (0.2-1.3) mg/dL AST (17-59) IU/L ALT (21-72) IU/L Alkaline Phosphatase (38-126) U/L C-Reactive Protein 3.9 H (<1.0) mg/dL Total Protein (6.3-8.2) g/dL Albumin (3.5-5.0) g/dL Globulin (1.7-4.1) g/dL Albumin/Globulin Ratio (1.0-2.8) Lipase (23-300) U/L Procalcitonin 0.16 (<0.5) ng/mL TSH (0.47-4.68) uIU/mL Urine Color Yellow Urine Appearance Clear Urine pH 8.0 (4.5-8.0) Ur Specific Timpson 1.010 (1.000-1.035) Urine Protein Negative (Negative) Urine Glucose (UA) Negative (Normal) g/dL Urine Ketones Negative (NEGATIVE) Urine Occult Blood Negative (Negative) Urine Nitrate Negative (Negative) Urine Bilirubin Negative (NEGATIVE) Urine Urobilinogen 0.2 (0.2) E.U./dL Ur Leukocyte Esterase Negative (NEGATIVE) Urine RBC None seen (0-5/HPF) Urine WBC None seen (0-5/HPF) Urine Bacteria None seen (None) Ur Culture Indicated? Cult not indicated Micro UA Comment Microscopic normal 03/18/18 03/18/18 03/19/18 Range/Units 23:25 Unknown 06:07 WBC 9.6 (4.5-11.0) X10^3/uL RBC 4.09 L (4.5-5.9) X10^6/uL Hgb 11.8 L (13.5-17.5) g/dL Hct 34.4 L (41-53) % MCV 84.2 (80-100) fL MCH 29.0 (26-34) PG MCHC 34.4 (30-36) % RDW 16.2 H (11.6-14.8) % Plt Count 306 (150-400) X10^3/uL Neut % (Auto) 74.4 (50-75) % Lymph % (Auto) 15.7 L (25-40) % [place] % (Auto) 8.7 (3-14) % Eos % (Auto) 0.8 L (2-4) % Baso % (Auto) 0.4 (0-2) % Neut # (Auto) 7200 H (7577-6547) /uL PT (10.1-12.7) SECONDS INR (0.9-1.3) Sodium (137-145) mmol/L Potassium (3.4-5.1) mmol/L Chloride (98-107) mmol/L Carbon Dioxide (22-32) mmol/L BUN (9-20) mg/dL Creatinine (0.66-1.25) mg/dL Estimated GFR (>60) mL/min BUN/Creatinine Ratio (6-22) Glucose (80-110) mg/dL Lactate 1.1 (0.7-2.1) mmol/L Calcium (8.4-10.2) mg/dL Phosphorus (2.3-3.7) mg/dL Magnesium (1.6-2.3) mg/dL Total Bilirubin (0.2-1.3) mg/dL AST (17-59) IU/L ALT (21-72) IU/L Alkaline Phosphatase (38-126) U/L C-Reactive Protein (<1.0) mg/dL Total Protein (6.3-8.2) g/dL Albumin (3.5-5.0) g/dL Globulin (1.7-4.1) g/dL Albumin/Globulin Ratio (1.0-2.8) Lipase (23-300) U/L Procalcitonin (<0.5) ng/mL TSH 1.57 (0.47-4.68) uIU/mL Urine Color Urine Appearance Urine pH (4.5-8.0) Ur Specific Tim[place] (1.000-1.035) Urine Protein (Negative) Urine Glucose (UA) (Normal) g/dL Urine Ketones (NEGATIVE) Urine Occult Blood (Negative) Urine Nitrate (Negative) Urine Bilirubin (NEGATIVE) Urine Urobilinogen (0.2) E.U./dL Ur Leukocyte Esterase (NEGATIVE) Urine RBC (0-5/HPF) Urine WBC (0-5/HPF) Urine Bacteria (None) Ur Culture Indicated? Micro UA Comment 03/19/18 Range/Units 06:07 WBC (4.5-11.0) X10^3/uL RBC (4.5-5.9) X10^6/uL Hgb (13.5-17.5) g/dL Hct (41-53) % MCV (80-100) fL MCH (26-34) PG MCHC (30-36) % RDW (11.6-14.8) % Plt Count (150-400) X10^3/uL Neut % (Auto) (50-75) % Lymph % (Auto) (25-40) % [place] % (Auto) (3-14) % Eos % (Auto) (2-4) % Baso % (Auto) (0-2) % Neut # (Auto) (1754-3883) /uL PT (10.1-12.7) SECONDS INR (0.9-1.3) Sodium 139 (137-145) mmol/L Potassium 4.1 (3.4-5.1) mmol/L Chloride 100 (98-107) mmol/L Carbon Dioxide 29 (22-32) mmol/L BUN 13 (9-20) mg/dL Creatinine 0.70 (0.66-1.25) mg/dL Estimated GFR > 60.0 (>60) mL/min BUN/Creatinine Ratio 18.6 (6-22) Glucose 109 (80-110) mg/dL Lactate (0.7-2.1) mmol/L Calcium 8.7 (8.4-10.2) mg/dL Phosphorus (2.3-3.7) mg/dL Magnesium (1.6-2.3) mg/dL Total Bilirubin 0.7 (0.2-1.3) mg/dL AST 35 (17-59) IU/L ALT 45 (21-72) IU/L Alkaline Phosphatase 85 (38-126) U/L C-Reactive Protein (<1.0) mg/dL Total Protein 6.2 L (6.3-8.2) g/dL Albumin 3.1 L (3.5-5.0) g/dL Globulin 3.1 (1.7-4.1) g/dL Albumin/Globulin Ratio 1.0 (1.0-2.8) Lipase (23-300) U/L Procalcitonin (<0.5) ng/mL TSH (0.47-4.68) uIU/mL Urine Color Urine Appearance Urine pH (4.5-8.0) Ur Specific [place] (1.000-1.035) Urine Protein (Negative) Urine Glucose (UA) (Normal) g/dL Urine Ketones (NEGATIVE) Urine Occult Blood (Negative) Urine Nitrate (Negative) Urine Bilirubin (NEGATIVE) Urine Urobilinogen (0.2) E.U./dL Ur Leukocyte Esterase (NEGATIVE) Urine RBC (0-5/HPF) Urine WBC (0-5/HPF) Urine Bacteria (None) Ur Culture Indicated? Micro UA Comment Point of care testing: Urine Dip Bedside Urine Glucose Negative Bedside Urine Bilirubin - Negative Bedside Urine Ketone - Negative Urine Specific Timpson 1.010 Bedside Urine Occult Blood - Negative Bedside Urine pH 8.5 Bedside Urine Protein - Negative Bedside Urine Urobilinogen - Negative Bedside Urine Nitrite - Negative Bedside Urine Leukocytes - Negative Esterase Imaging Data Chest x-ray: Radiologist's impression: [address] [address] XRay Report Signed Patient: Yash Davila [facility]#: [id number] : 5Acct:[id number] Age/Sex: 63 / MDate of Service: 03/18/18 Loc: ED Accession Number: [id number] Procedure: XR chest 1V Ordering Provider: Saeed Manrique PROCEDURE: XR CHEST 1V INDICATIONS: continued shortness of breath and cough TECHNIQUE: One view of the chest was acquired. [facility]. FINDINGS: Surgical changes and devices: Postoperative changes of the lower cervical spine are present. There is a left-sided Port-A-Cath central line identified with the tip unchanged in position with the tip overlying the distal left brachiocephalic vein near the confluence with the superior vena cava. Lungs and pleura: Low lung volumes on the right are present. There maybe postoperative changes of the right lung. Interstitial prominence within the perihilar regions is similar to the prior study. No new areas of consolidation are present. There is no pneumothorax. Mediastinum: Mediastinal contours appear normal. Heart size is normal. Bones and chest wall: No suspicious bony lesions. Overlying soft tissues appear unremarkable. IMPRESSION: Stable chest. No acute cardiopulmonary process is evident. Dictated by: Armando Tracy M.D. on 03/18/2018 at 15:14 Approved by: Armando Tracy M.D. on 03/18/2018 at 15:15 CT scan - abdomen: Radiologist's impression: [facility] [id number] CT Scan Report Signed Patient: Yash Davila [facility]#: [id number] : 5Acct:[id number] Age/Sex: 63 / MDate of Service: 03/18/18 Loc: ED Accession Number: [id number] Procedure: CT abdomen pelvis w con Ordering Provider: Saeed Manrique PROCEDURE: CT ABDOMEN PELVIS W CON INDICATIONS: History metastatic lung cancer here for rlq pain TECHNIQUE: After the administration of oral and intravenous contrast, 5 mm thick sections acquired from the diaphragms to the symphysis. 5 mm thick coronal and sagittal reformats were performed. For radiation dose reduction, the following was used: automated exposure control, adjustment of mA and/or kV according to patient size. COMPARISON: [facility], CT, CHEST/ABD/PEL WITH CONTRAST, 06/25/2017, 11:57. [facility], CT, CHEST/ABDOMEN WITH CONTRAST, 06/22/2016, 13:13. [facility], CT, CHEST/ABDOMEN WITH CONTRAST, 02/07/2016, 9:15. [facility], CT, ABDOMEN/PELVIS WITH CONTRAST, 10/18/2015, 15:23. FINDINGS: Image quality: Diagnostic. ABDOMEN: Lung bases: Mild areas of parenchymal scarring are seen within the right middle lobe/right lung base, similar to previous examinations, but less pronounced on the current study. Heart size is normal. Solid organs: The liver, spleen, adrenals, kidneys, and pancreas appear to be unchanged. A simple appearing left renal cyst is again noted. Peritoneum and bowel: There is a small hiatal hernia. Otherwise, the stomach is unremarkable. The small bowel loops are nondilated. Moderate to large amount of residual stool is identified within the colon. The appendix is not definitely seen. No free fluid or loculated fluid collection is evident. There is no free air. Nodes and vessels: No retroperitoneal or mesenteric adenopathy. Aorta and inferior vena cava are normal in caliber. There is atherosclerosis of the lower abdominal aorta and iliac arteries. No occlusions or aneurysms. Bones: There is a new Schmorl's node versus superior endplate compression deformity involving the L3 vertebral body, which was not present on the examination from 06/25/17. Otherwise, the osseous structures of the abdomen are intact. PELVIS: Genitourinary: Moderate thickening of the urinary bladder wall is present. The prostate gland is not appear to be significantly enlarged. However, there are coarse calcifications present within the prostate itself. Miscellaneous: No inguinal hernias or adenopathy. No free fluid or loculated fluid collections are evident. There is no free air. Bones: No suspicious bony lesions. No acute pelvic fractures are evident. They're mild to moderate degenerative changes of the pelvic joints. IMPRESSION: 1. No evidence of metastatic disease to the abdomen or pelvis. No lymphadenopathy. 2. Thickening of the urinary bladder wall may be related to chronic bladder obstruction. Please correlate clinically to exclude cystitis. 3. Large amount of residual stool throughout the colon may represent constipation. 4. Small hiatal hernia. 5. New compression deformity versus Schmorl's node involving the superior L3 endplate. The need for better characterization utilizing MRI may be determined clinically. Dictated by: Armando Tracy M.D. on 03/18/2018 at 15:00 Approved by: Armando Tracy M.D. on 03/18/2018 at 15:09 [facility] Narrative Medical decision making narrative: chest x-ray was obtained and was negative for any acute findings. CT of the abdomen was obtained and shows some thickening to the urinary bladder however his urine POC was negative for urinary tract infection. There was some stool to the colon. no other acute findings were seen. CBC shows elevated white count Of 16.9 H&H was 13 and 40. Chem panel was unremarkable lipase was negative. Sign of infection is not found at this time And symptoms may have a viral component. However due to his COPD and lung cancer and shortness of breath that has not improved over the past several weeks wound also combined with increased weakness and decreased p.o. intake discussed admission with patient patient states he feels more comfortable with admission at least for 1 day to help with hydration and he can follow up with Oncology. <Bhavik Chamorro, DO - Last Filed: 03/19/18 09:41> Lab Data Lab Results 03/18/18 03/18/18 03/18/18 Range/Units 14:30 14:30 14:30 WBC 16.9 H (4.5-11.0) X10^3/uL RBC 4.65 (4.5-5.9) X10^6/uL Hgb 12.9 L (13.5-17.5) g/dL Hct 39.7 L (41-53) % MCV 85.4 (80-100) fL MCH 27.8 (26-34) PG MCHC 32.5 (30-36) % RDW 16.3 H (11.6-14.8) % Plt Count 383 (150-400) X10^3/uL Neut % (Auto) 78.6 H (50-75) % Lymph % (Auto) 13.4 L (25-40) % [place] % (Auto) 7.3 (3-14) % Eos % (Auto) 0.1 L (2-4) % Baso % (Auto) 0.6 (0-2) % Neut # (Auto) 37146 H (8147-6808) /uL PT 13.1 H (10.1-12.7) SECONDS INR 1.1 (0.9-1.3) Sodium 135 L (137-145) mmol/L Potassium 4.0 (3.4-5.1) mmol/L Chloride 94 L (98-107) mmol/L Carbon Dioxide 29 (22-32) mmol/L BUN 15 (9-20) mg/dL Creatinine 0.80 (0.66-1.25) mg/dL Estimated GFR > 60.0 (>60) mL/min BUN/Creatinine Ratio 18.8 (6-22) Glucose 109 (80-110) mg/dL Lactate (0.7-2.1) mmol/L Calcium 9.0 (8.4-10.2) mg/dL Phosphorus 3.6 (2.3-3.7) mg/dL Magnesium 1.6 (1.6-2.3) mg/dL Total Bilirubin 0.9 (0.2-1.3) mg/dL AST 45 (17-59) IU/L ALT 60 (21-72) IU/L Alkaline Phosphatase 96 (38-126) U/L C-Reactive Protein (<1.0) mg/dL Total Protein 7.1 (6.3-8.2) g/dL Albumin 3.7 (3.5-5.0) g/dL Globulin 3.4 (1.7-4.1) g/dL Albumin/Globulin Ratio 1.1 (1.0-2.8) Lipase 53 (23-300) U/L Procalcitonin (<0.5) ng/mL TSH (0.47-4.68) uIU/mL Urine Color Urine Appearance Urine pH (4.5-8.0) Ur Specific Tim[place] (1.000-1.035) Urine Protein (Negative) Urine Glucose (UA) (Normal) g/dL Urine Ketones (NEGATIVE) Urine Occult Blood (Negative) Urine Nitrate (Negative) Urine Bilirubin (NEGATIVE) Urine Urobilinogen (0.2) E.U./dL Ur Leukocyte Esterase (NEGATIVE) Urine RBC (0-5/HPF) Urine WBC (0-5/HPF) Urine Bacteria (None) Ur Culture Indicated? Micro UA Comment 03/18/18 03/18/18 03/18/18 Range/Units 14:30 14:30 19:55 WBC (4.5-11.0) X10^3/uL RBC (4.5-5.9) X10^6/uL Hgb (13.5-17.5) g/dL Hct (41-53) % MCV (80-100) fL MCH (26-34) PG MCHC (30-36) % RDW (11.6-14.8) % Plt Count (150-400) X10^3/uL Neut % (Auto) (50-75) % Lymph % (Auto) (25-40) % [place] % (Auto) (3-14) % Eos % (Auto) (2-4) % Baso % (Auto) (0-2) % Neut # (Auto) (3575-4475) /uL PT (10.1-12.7) SECONDS INR (0.9-1.3) Sodium (137-145) mmol/L Potassium (3.4-5.1) mmol/L Chloride (98-107) mmol/L Carbon Dioxide (22-32) mmol/L BUN (9-20) mg/dL Creatinine (0.66-1.25) mg/dL Estimated GFR (>60) mL/min BUN/Creatinine Ratio (6-22) Glucose (80-110) mg/dL Lactate (0.7-2.1) mmol/L Calcium (8.4-10.2) mg/dL Phosphorus (2.3-3.7) mg/dL Magnesium (1.6-2.3) mg/dL Total Bilirubin (0.2-1.3) mg/dL AST (17-59) IU/L ALT (21-72) IU/L Alkaline Phosphatase (38-126) U/L C-Reactive Protein 3.9 H (<1.0) mg/dL Total Protein (6.3-8.2) g/dL Albumin (3.5-5.0) g/dL Globulin (1.7-4.1) g/dL Albumin/Globulin Ratio (1.0-2.8) Lipase (23-300) U/L Procalcitonin 0.16 (<0.5) ng/mL TSH (0.47-4.68) uIU/mL Urine Color Yellow Urine Appearance Clear Urine pH 8.0 (4.5-8.0) Ur Specific Timpson 1.010 (1.000-1.035) Urine Protein Negative (Negative) Urine Glucose (UA) Negative (Normal) g/dL Urine Ketones Negative (NEGATIVE) Urine Occult Blood Negative (Negative) Urine Nitrate Negative (Negative) Urine Bilirubin Negative (NEGATIVE) Urine Urobilinogen 0.2 (0.2) E.U./dL Ur Leukocyte Esterase Negative (NEGATIVE) Urine RBC None seen (0-5/HPF) Urine WBC None seen (0-5/HPF) Urine Bacteria None seen (None) Ur Culture Indicated? Cult not indicated Micro UA Comment Microscopic normal 03/18/18 03/18/18 03/19/18 Range/Units 23:25 Unknown 06:07 WBC 9.6 (4.5-11.0) X10^3/uL RBC 4.09 L (4.5-5.9) X10^6/uL Hgb 11.8 L (13.5-17.5) g/dL Hct 34.4 L (41-53) % MCV 84.2 (80-100) fL MCH 29.0 (26-34) PG MCHC 34.4 (30-36) % RDW 16.2 H (11.6-14.8) % Plt Count 306 (150-400) X10^3/uL Neut % (Auto) 74.4 (50-75) % Lymph % (Auto) 15.7 L (25-40) % [place] % (Auto) 8.7 (3-14) % Eos % (Auto) 0.8 L (2-4) % Baso % (Auto) 0.4 (0-2) % Neut # (Auto) 7200 H (6389-7110) /uL PT (10.1-12.7) SECONDS INR (0.9-1.3) Sodium (137-145) mmol/L Potassium (3.4-5.1) mmol/L Chloride (98-107) mmol/L Carbon Dioxide (22-32) mmol/L BUN (9-20) mg/dL Creatinine (0.66-1.25) mg/dL Estimated GFR (>60) mL/min BUN/Creatinine Ratio (6-22) Glucose (80-110) mg/dL Lactate 1.1 (0.7-2.1) mmol/L Calcium (8.4-10.2) mg/dL Phosphorus (2.3-3.7) mg/dL Magnesium (1.6-2.3) mg/dL Total Bilirubin (0.2-1.3) mg/dL AST (17-59) IU/L ALT (21-72) IU/L Alkaline Phosphatase (38-126) U/L C-Reactive Protein (<1.0) mg/dL Total Protein (6.3-8.2) g/dL Albumin (3.5-5.0) g/dL Globulin (1.7-4.1) g/dL Albumin/Globulin Ratio (1.0-2.8) Lipase (23-300) U/L Procalcitonin (<0.5) ng/mL TSH 1.57 (0.47-4.68) uIU/mL Urine Color Urine Appearance Urine pH (4.5-8.0) Ur Specific Timpson (1.000-1.035) Urine Protein (Negative) Urine Glucose (UA) (Normal) g/dL Urine Ketones (NEGATIVE) Urine Occult Blood (Negative) Urine Nitrate (Negative) Urine Bilirubin (NEGATIVE) Urine Urobilinogen (0.2) E.U./dL Ur Leukocyte Esterase (NEGATIVE) Urine RBC (0-5/HPF) Urine WBC (0-5/HPF) Urine Bacteria (None) Ur Culture Indicated? Micro UA Comment 03/19/18 Range/Units 06:07 WBC (4.5-11.0) X10^3/uL RBC (4.5-5.9) X10^6/uL Hgb (13.5-17.5) g/dL Hct (41-53) % MCV (80-100) fL MCH (26-34) PG MCHC (30-36) % RDW (11.6-14.8) % Plt Count (150-400) X10^3/uL Neut % (Auto) (50-75) % Lymph % (Auto) (25-40) % [place] % (Auto) (3-14) % Eos % (Auto) (2-4) % Baso % (Auto) (0-2) % Neut # (Auto) (7259-7366) /uL PT (10.1-12.7) SECONDS INR (0.9-1.3) Sodium 139 (137-145) mmol/L Potassium 4.1 (3.4-5.1) mmol/L Chloride 100 (98-107) mmol/L Carbon Dioxide 29 (22-32) mmol/L BUN 13 (9-20) mg/dL Creatinine 0.70 (0.66-1.25) mg/dL Estimated GFR > 60.0 (>60) mL/min BUN/Creatinine Ratio 18.6 (6-22) Glucose 109 (80-110) mg/dL Lactate (0.7-2.1) mmol/L Calcium 8.7 (8.4-10.2) mg/dL Phosphorus (2.3-3.7) mg/dL Magnesium (1.6-2.3) mg/dL Total Bilirubin 0.7 (0.2-1.3) mg/dL AST 35 (17-59) IU/L ALT 45 (21-72) IU/L Alkaline Phosphatase 85 (38-126) U/L C-Reactive Protein (<1.0) mg/dL Total Protein 6.2 L (6.3-8.2) g/dL Albumin 3.1 L (3.5-5.0) g/dL Globulin 3.1 (1.7-4.1) g/dL Albumin/Globulin Ratio 1.0 (1.0-2.8) Lipase (23-300) U/L Procalcitonin (<0.5) ng/mL TSH (0.47-4.68) uIU/mL Urine Color Urine Appearance Urine pH (4.5-8.0) Ur Specific Tim[place] (1.000-1.035) Urine Protein (Negative) Urine Glucose (UA) (Normal) g/dL Urine Ketones (NEGATIVE) Urine Occult Blood (Negative) Urine Nitrate (Negative) Urine Bilirubin (NEGATIVE) Urine Urobilinogen (0.2) E.U./dL Ur Leukocyte Esterase (NEGATIVE) Urine RBC (0-5/HPF) Urine WBC (0-5/HPF) Urine Bacteria (None) Ur Culture Indicated? Micro UA Comment Point of care testing: Urine Dip Bedside Urine Glucose Negative Bedside Urine Bilirubin - Negative Bedside Urine Ketone - Negative Urine Specific Timpson 1.010 Bedside Urine Occult Blood - Negative Bedside Urine pH 8.5 Bedside Urine Protein - Negative Bedside Urine Urobilinogen - Negative Bedside Urine Nitrite - Negative Bedside Urine Leukocytes - Negative Esterase Discharge Plan Departure Patient Disposition: Admitted As Inpatient Clinical Impression: COPD (chronic obstructive pulmonary disease) Discharge Date/Time: 03/18/18 18:01 Interventions: ED Discharge Assessment Last Done: 03/18/18 18:01 Admit Date/Time: 03/18/18 17:31 Admit Provider: Donnell Pool <Bhavik Chamorro DO - Last Filed: 03/19/18 09:41> Cosign ED Attending Nita Attestation: I was immediately available in the department for consultation. Documentation has been reviewed. I agree with assessment and plan.
--- NOTE | 2018-03-18 14:13 | DI.CT.S_ITS ---
PROCEDURE: CT ABDOMEN PELVIS W CON INDICATIONS: History metastatic lung cancer here for rlq pain TECHNIQUE: After the administration of oral and intravenous contrast, 5 mm thick sections acquired from the diaphragms to the symphysis. 5 mm thick coronal and sagittal reformats were performed. For radiation dose reduction, the following was used: automated exposure control, adjustment of mA and/or kV according to patient size. COMPARISON: [facility], CT, CHEST/ABD/PEL WITH CONTRAST, 06/25/2017, 11:57. [facility], CT, CHEST/ABDOMEN WITH CONTRAST, 06/22/2016, 13:13. [facility], CT, CHEST/ABDOMEN WITH CONTRAST, 02/07/2016, 9:15. [facility], CT, ABDOMEN/PELVIS WITH CONTRAST, 10/18/2015, 15:23. FINDINGS: Image quality: Diagnostic. ABDOMEN: Lung bases: Mild areas of parenchymal scarring are seen within the right middle lobe/right lung base, similar to previous examinations, but less pronounced on the current study. Heart size is normal. Solid organs: The liver, spleen, adrenals, kidneys, and pancreas appear to be unchanged. A simple appearing left renal cyst is again noted. Peritoneum and bowel: There is a small hiatal hernia. Otherwise, the stomach is unremarkable. The small bowel loops are nondilated. Moderate to large amount of residual stool is identified within the colon. The appendix is not definitely seen. No free fluid or loculated fluid collection is evident. There is no free air. Nodes and vessels: No retroperitoneal or mesenteric adenopathy. Aorta and inferior vena cava are normal in caliber. There is atherosclerosis of the lower abdominal aorta and iliac arteries. No occlusions or aneurysms. Bones: There is a new Schmorl's node versus superior endplate compression deformity involving the L3 vertebral body, which was not present on the examination from 06/25/17. Otherwise, the osseous structures of the abdomen are intact. PELVIS: Genitourinary: Moderate thickening of the urinary bladder wall is present. The prostate gland is not appear to be significantly enlarged. However, there are coarse calcifications present within the prostate itself. Miscellaneous: No inguinal hernias or adenopathy. No free fluid or loculated fluid collections are evident. There is no free air. Bones: No suspicious bony lesions. No acute pelvic fractures are evident. They're mild to moderate degenerative changes of the pelvic joints. IMPRESSION: 1. No evidence of metastatic disease to the abdomen or pelvis. No lymphadenopathy. 2. Thickening of the urinary bladder wall may be related to chronic bladder obstruction. Please correlate clinically to exclude cystitis. 3. Large amount of residual stool throughout the colon may represent constipation. 4. Small hiatal hernia. 5. New compression deformity versus Schmorl's node involving the superior L3 endplate. The need for better characterization utilizing MRI may be determined clinically. Dictated by: Armando Tracy M.D. on 03/18/2018 at 15:00 Approved by: Armando Tracy M.D. on 03/18/2018 at 15:09
[2018-03-18 14:39] LABS: Add Manual Diff / Slide Review NO; Basophils Percent Auto 0.6 % (0-2); Eosinophils Percent Auto 0.1 % (2-4); Hematocrit 39.7 % (41-53); Hemoglobin 12.9 g/dL (13.5-17.5); Lymphocytes Percent Auto 13.4 % (25-40); Mean Corpuscular HGB Conc 32.5 % (30-36); Mean Corpuscular Hemoglobin 27.8 PG (26-34); Mean Corpuscular Volume 85.4 fL (80-100); Monocytes Percent Auto 7.3 % (3-14); Neutrophils Absolute Auto 13200 /uL (1500-7000); Neutrophils Percent Auto 78.6 % (50-75); Platelet Count 383 X10^3/uL (150-400); Red Blood Cell Count 4.65 X10^6/uL (4.5-5.9); Red Cell Distribution Width 16.3 % (11.6-14.8); White Blood Cell Count 16.9 X10^3/uL (4.5-11.0)
[2018-03-18 14:45] LABS: INR 1.1 (0.9-1.3); Prothrombin Time 13.1 SECONDS (10.1-12.7)
[2018-03-18 14:50] LABS: Alanine Aminotransferase 60 IU/L (21-72); Albumin 3.7 g/dL (3.5-5.0); Albumin Globulin Ratio 1.1 (1.0-2.8); Alkaline Phosphatase 96 U/L (38-126); Aspartate Aminotransferase 45 IU/L (17-59); BUN Creatinine Ratio 18.8 (6-22); Bilirubin Total 0.9 mg/dL (0.2-1.3); Blood Urea Nitrogen 15 mg/dL (9-20); Carbon Dioxide 29 mmol/L (22-32); Chloride 94 mmol/L (98-107); Estimated Glomerular Filt Rate > 60.0 mL/min (>60); Globulin 3.4 g/dL (1.7-4.1); Glucose 109 mg/dL (80-110); Lipase 53 U/L (23-300); Sodium 135 mmol/L (137-145); Total Protein 7.1 g/dL (6.3-8.2)
[2018-03-18] MEDS: SODIUM CHLORIDE 0.9% 1,000 ML 1000 ML IV (14:54)
--- NOTE | 2018-03-18 15:15 | DI.RAD.S_ITS ---
PROCEDURE: XR CHEST 1V INDICATIONS: continued shortness of breath and cough TECHNIQUE: One view of the chest was acquired. COMPARISON: Located Within [facility], , XR CHEST 1V, 01/19/2018, 20:01. FINDINGS: Surgical changes and devices: Postoperative changes of the lower cervical spine are present. There is a left-sided Port-A-Cath central line identified with the tip unchanged in position with the tip overlying the distal left brachiocephalic vein near the confluence with the superior vena cava. Lungs and pleura: Low lung volumes on the right are present. There maybe postoperative changes of the right lung. Interstitial prominence within the perihilar regions is similar to the prior study. No new areas of consolidation are present. There is no pneumothorax. Mediastinum: Mediastinal contours appear normal. Heart size is normal. Bones and chest wall: No suspicious bony lesions. Overlying soft tissues appear unremarkable. IMPRESSION: Stable chest. No acute cardiopulmonary process is evident. Dictated by: Armando Tracy M.D. on 03/18/2018 at 15:14 Approved by: Armando Tracy M.D. on 03/18/2018 at 15:15
[2018-03-18] MEDS: HYDROMORPHONE 1 MG INJ IV (15:27)
--- NOTE | 2018-03-18 17:26 | ED_ITS ---
HPI - Abdominal Pain <GEORGE Rios - Last Filed: 03/18/18 22:10> General Chief Complaint: Abdominal Pain Stated Complaint: stomach hurts bad, breathing is not well, cancer Time Seen by Provider: 03/18/18 13:53 Source: patient Mode of arrival: ambulatory Limitations: no limitations History of Present Illness HPI narrative: 63-year-old male with history of lung cancer with metastasis and is an everyday smoker here for complaint of a having shortness of breath over the past several weeks. He also complains of having right lower quadrant pain over the past several days. He also complains that there is a little bit of burning with urination. He reports decreased p.o. intake. He denies having a fever. Last bowel movement was yesterday and was unremarkable. he denies any vomiting. He reports that his cough has been productive. He was seen last week in the emergency room for shortness of breath and cough he was put on a prednisone taper dose and is currently taking any completed a course of Levaquin. He denies any chest pain. He denies any flank pain. He denies any stressors or relievers of his pain. Reports that he is having difficulty completing his ADLs due to feeling weak and short of breath Related Data Home Medications Medication Instructions Recorded Confirmed albuterol sulfate [ProAir HFA] 1 puff INH Q6H 03/18/18 03/18/18 esomeprazole magnesium 20 mg PO DAILY 03/18/18 03/18/18 Previous Rx's Medication Instructions Recorded [DISABLED PARKING ] 1 ea X1 #1 ea 04/29/16 acetaminophen 650 mg PO Q8H #30 tab 02/16/17 citalopram [Celexa] 20 mg PO DAILY #90 tab 10/29/17 pregabalin [Lyrica] 50 mg PO TID #90 cap 10/29/17 lactulose [Enulose] 20 g PO TID PRN #120 ml 01/20/18 levothyroxine 137 mcg PO DAILY #60 tab 01/20/18 hydroxyzine HCl 25 - 50 mg PO Q6H PRN #60 tab 02/03/18 hydrocodone-acetaminophen 1 tab PO Q4-6H PRN #90 tab 02/23/18 levofloxacin [Levaquin] 750 mg PO DAILY #7 tab 03/09/18 prednisone 10 mg PO DAILY #30 tab 03/09/18 oxycodone 10 mg PO Q4-6H PRN #60 tab 03/10/18 Allergies Allergy/AdvReac Type Severity Reaction Status Date / Time aspirin [ASPIRIN] AdvReac Mild NAUSEA Verified 03/18/18 13:36 Review of Systems <GEORGE Rios - Last Filed: 03/18/18 22:10> Constitutional Denies chills, Denies fever(s), Denies lethargy and Denies weakness Eyes Denies change in vision, Denies eye discharge, Denies irritation and Denies loss of vision ENT Ears, Nose, Mouth, and Throat: Denies change in voice, Denies neck pain, Denies sore throat and Denies throat swelling Cardiovascular Denies chest pain, Denies irregular heart rhythm, Denies lightheadedness, Denies palpitations, Reports dyspnea and Denies orthopnea Respiratory Reports cough, Reports dyspnea and Denies wheezing Gastrointestinal Gastrointestinal: Reports abdominal pain, Denies change in bowel habits, Denies diarrhea, Denies nausea and Denies vomiting Genitourinary Denies hematuria, Denies flank pain, Denies urinary incontinence and Denies urinary urgency Musculoskeletal Denies neck pain Integumentary/Breasts Denies pruritus, Denies erythema, Denies rash and Denies wounds Neurologic Denies confusion, Denies loss of vision and Denies weakness Psychiatric Denies anxiety, Denies confusion, Denies depression, Denies homicidal ideation and Denies suicidal ideation Endocrine Denies palpitations Hematologic/Lymphatic Denies easy bruising Allergic/Immunologic Denies urticaria, Denies throat swelling and Denies wheezing Exam <GEORGE Rios - Last Filed: 03/18/18 22:10> Initial Vital Signs Initial Vital Signs: Vital Signs Temperature 98.1 F 03/18/18 13:36 Pulse Rate 94 H 03/18/18 13:36 Respiratory Rate 24 03/18/18 13:36 Blood Pressure 90/63 03/18/18 13:36 Pulse Oximetry 98 03/18/18 13:36 Const General: cooperative Orientation: alert, awake, oriented x3 and not confused [facility] Mouth: oral mucosae normal and moist mucous membranes Eyes General: appearance normal, both eyes and all related structures Eyelids: eyelids normal Conjunctivae: conjunctivae normal Sclera: sclerae normal Pupils: PERRL EOM: EOM intact bilaterally Resp Effort & Inspection: normal respiratory effort, able to speak in complete sentences, no respiratory distress and no use of accessory muscles Auscultation: rales, no rhonchi and no wheezes Cardio Rate: regular rate Rhythm: regular rhythm Heart Sounds: no click, no gallops, no murmurs and no rubs Pulses: normal peripheral pulses GI Other: right lower quadrant tenderness Skin General: no rashes or lesions noted, No jaundice and No petechiae <Bhavik Chamorro DO - Last Filed: 03/19/18 09:41> Initial Vital Signs Initial Vital Signs: Vital Signs Temperature 98.1 F 03/18/18 13:36 Pulse Rate 94 H 03/18/18 13:36 Respiratory Rate 24 03/18/18 13:36 Blood Pressure 90/63 03/18/18 13:36 Pulse Oximetry 98 03/18/18 13:36 Course <GEORGE Rios - Last Filed: 03/18/18 22:10> Orders Ordered: ED Orders 03/19/18 06:07 Complete Blood Count AUTO DIFF DAILY Comprehensive Metabolic Panel DAILY 03/20/18 05:30 Complete Blood Count AUTO DIFF DAILY 03/21/18 05:30 Complete Blood Count AUTO DIFF DAILY Acetaminophen (Tylenol) 650 mg PO Q6HR PRN PRN Reason: As Needed for Fever/Mild Pain Albuterol (Ventolin Hfa) 1 puff INH Q6H [facility] Last Admin: 03/19/18 06:19 Dose: Not Given Admin: 03/19/18 01:15 Dose: Not Given Albuterol/Ipratropium (Duoneb) 3 ml INH [id number] [facility] Last Admin: 03/19/18 06:19 Dose: 3 ml Admin: 03/18/18 19:36 Dose: 3 ml Citalopram Hydrobromide (Celexa) 20 mg PO DAILY [facility] Last Admin: 03/19/18 09:12 Dose: 20 mg Enoxaparin Sodium (Lovenox) 40 mg SUBCUT DAILY [facility] Last Admin: 03/19/18 09:12 Dose: 40 mg Sodium Chloride (Normal Saline 0.9%) 1,000 mls @ 80 mls/hr IV CONT [facility] Last Admin: 03/19/18 08:04 Dose: 80 mls/hr Infusion: 03/19/18 08:01 Dose: 80 mls/hr Admin: 03/18/18 19:31 Dose: 80 mls/hr Lactulose (Enulose) 20 gm PO TID PRN PRN Reason: Constipation Levothyroxine Sodium (Synthroid) 137 mcg PO QACBREAK [facility] Last Admin: 03/19/18 09:12 Dose: 137 mcg Magnesium Citrate (Magnesium Citrate) 150 ml PO DAILY PRN PRN Reason: Constipation Magnesium Hydroxide (Milk Of Magnesia) 30 ml PO DAILY PRN PRN Reason: Constipation Morphine Sulfate (Morphine) 2 mg IV Q4HR PRN PRN Reason: Pain, Moderate (4-6) Naloxone HCl (Narcan) 0.2 mg IV Q2MIN PRN PRN Reason: Opiate Reversal Nicotine (Nicoderm) 7 mg TOP DAILY [facility] Last Admin: 03/19/18 09:13 Dose: 7 mg Ondansetron HCl (Zofran) 4 mg IV Q8HR PRN PRN Reason: Nausea And Vomiting Oxycodone HCl (Percolone) 10 mg PO Q4H PRN PRN Reason: cancer pain Last Admin: 03/19/18 09:10 Dose: 10 mg Admin: 03/19/18 04:20 Dose: 10 mg Admin: 03/19/18 00:20 Dose: 10 mg Pantoprazole Sodium (Protonix) 20 mg PO 0600 [facility] Last Admin: 03/19/18 06:22 Dose: 20 mg Polyethylene Glycol (Miralax) 17 gm PO BID [facility] Prednisone (Deltasone) 40 mg PO DAILY [facility] Last Admin: 03/19/18 09:13 Dose: 40 mg Sennosides (Senna) 17.2 mg PO BEDTIME [facility] Last Admin: 03/18/18 20:35 Dose: 17.2 mg Sennosides (Senna) 17.2 mg PO BID [facility] Sodium Biphosphate/Sodium Phosphate (Fleet Enema) 1 each MD DAILY PRN PRN Reason: Constipation Discontinued Medications Bisacodyl (Dulcolax) 10 mg MD NOW ONE Stop: 03/18/18 17:24 Last Admin: 03/18/18 19:38 Dose: 10 mg Diphenhydramine HCl (Benadryl) 25 mg IV Q6HR PRN PRN Reason: NAUSEA AND ITCHING Hydromorphone HCl (Dilaudid) 1 mg IV NOW ONE Stop: 03/18/18 15:15 Last Admin: 03/18/18 15:27 Dose: 1 mg Sodium Chloride (Normal Saline 0.9%) 1,000 mls @ 1,000 mls/hr IV BOLUS ONE Stop: 03/18/18 15:09 Last Infusion: 03/18/18 15:46 Dose: 0 mls/hr Admin: 03/18/18 14:54 Dose: 1,000 mls/hr Magnesium Sulfate (Magnesium Sulfate) 2 gm in 50 mls @ 25 mls/hr IV NOW ONE Stop: 03/19/18 00:20 Last Admin: 03/19/18 00:02 Dose: 25 mls/hr Polyethylene Glycol (Miralax) 17 gm PO NOW ONE Stop: 03/18/18 17:24 Last Admin: 03/18/18 19:38 Dose: 17 gm Vital Signs - 8 hr 03/19/18 03:52 03/19/18 04:04 03/19/18 06:19 Temperature 98.4 F Pulse Rate 79 65 Respiratory Rate 19 16 Blood Pressure 106/72 Pulse Oximetry 95 94 98 03/19/18 08:00 Temperature 98.3 F Pulse Rate 79 Respiratory Rate 16 Blood Pressure 118/61 Pulse Oximetry 98 <Bhavik Chamorro, DO - Last Filed: 03/19/18 09:41> Orders Ordered: ED Orders 03/19/18 06:07 Complete Blood Count AUTO DIFF DAILY Comprehensive Metabolic Panel DAILY 03/20/18 05:30 Complete Blood Count AUTO DIFF DAILY 03/21/18 05:30 Complete Blood Count AUTO DIFF DAILY Acetaminophen (Tylenol) 650 mg PO Q6HR PRN PRN Reason: As Needed for Fever/Mild Pain Albuterol (Ventolin Hfa) 1 puff INH Q6H [facility] Last Admin: 03/19/18 06:19 Dose: Not Given Admin: 03/19/18 01:15 Dose: Not Given Albuterol/Ipratropium (Duoneb) 3 ml INH [id number] [facility] Last Admin: 03/19/18 06:19 Dose: 3 ml Admin: 03/18/18 19:36 Dose: 3 ml Citalopram Hydrobromide (Celexa) 20 mg PO DAILY [facility] Last Admin: 03/19/18 09:12 Dose: 20 mg Enoxaparin Sodium (Lovenox) 40 mg SUBCUT DAILY [facility] Last Admin: 03/19/18 09:12 Dose: 40 mg Sodium Chloride (Normal Saline 0.9%) 1,000 mls @ 80 mls/hr IV CONT [facility] Last Admin: 03/19/18 08:04 Dose: 80 mls/hr Infusion: 03/19/18 08:01 Dose: 80 mls/hr Admin: 03/18/18 19:31 Dose: 80 mls/hr Lactulose (Enulose) 20 gm PO TID PRN PRN Reason: Constipation Levothyroxine Sodium (Synthroid) 137 mcg PO QACBREAK [facility] Last Admin: 03/19/18 09:12 Dose: 137 mcg Magnesium Citrate (Magnesium Citrate) 150 ml PO DAILY PRN PRN Reason: Constipation Magnesium Hydroxide (Milk Of Magnesia) 30 ml PO DAILY PRN PRN Reason: Constipation Morphine Sulfate (Morphine) 2 mg IV Q4HR PRN PRN Reason: Pain, Moderate (4-6) Naloxone HCl (Narcan) 0.2 mg IV Q2MIN PRN PRN Reason: Opiate Reversal Nicotine (Nicoderm) 7 mg TOP DAILY [facility] Last Admin: 03/19/18 09:13 Dose: 7 mg Ondansetron HCl (Zofran) 4 mg IV Q8HR PRN PRN Reason: Nausea And Vomiting Oxycodone HCl (Percolone) 10 mg PO Q4H PRN PRN Reason: cancer pain Last Admin: 03/19/18 09:10 Dose: 10 mg Admin: 03/19/18 04:20 Dose: 10 mg Admin: 03/19/18 00:20 Dose: 10 mg Pantoprazole Sodium (Protonix) 20 mg PO 0600 [facility] Last Admin: 03/19/18 06:22 Dose: 20 mg Polyethylene Glycol (Miralax) 17 gm PO BID [facility] Prednisone (Deltasone) 40 mg PO DAILY [facility] Last Admin: 03/19/18 09:13 Dose: 40 mg Sennosides (Senna) 17.2 mg PO BEDTIME [facility] Last Admin: 03/18/18 20:35 Dose: 17.2 mg Sennosides (Senna) 17.2 mg PO BID [facility] Sodium Biphosphate/Sodium Phosphate (Fleet Enema) 1 each MD DAILY PRN PRN Reason: Constipation Discontinued Medications Bisacodyl (Dulcolax) 10 mg MD NOW ONE Stop: 12/14/18 17:24 Last Admin: 03/18/18 19:38 Dose: 10 mg Diphenhydramine HCl (Benadryl) 25 mg IV Q6HR PRN PRN Reason: NAUSEA AND ITCHING Hydromorphone HCl (Dilaudid) 1 mg IV NOW ONE Stop: 03/18/18 15:15 Last Admin: 03/18/18 15:27 Dose: 1 mg Sodium Chloride (Normal Saline 0.9%) 1,000 mls @ 1,000 mls/hr IV BOLUS ONE Stop: 03/18/18 15:09 Last Infusion: 03/18/18 15:46 Dose: 0 mls/hr Admin: 03/18/18 14:54 Dose: 1,000 mls/hr Magnesium Sulfate (Magnesium Sulfate) 2 gm in 50 mls @ 25 mls/hr IV NOW ONE Stop: 03/19/18 00:20 Last Admin: 03/19/18 00:02 Dose: 25 mls/hr Polyethylene Glycol (Miralax) 17 gm PO NOW ONE Stop: 03/18/18 17:24 Last Admin: 03/18/18 19:38 Dose: 17 gm Vital Signs - 8 hr 03/19/18 03:52 03/19/18 04:04 03/19/18 06:19 Temperature 98.4 F Pulse Rate 79 65 Respiratory Rate 19 16 Blood Pressure 106/72 Pulse Oximetry 95 94 98 03/19/18 08:00 Temperature 98.3 F Pulse Rate 79 Respiratory Rate 16 Blood Pressure 118/61 Pulse Oximetry 98 MDM - Abdominal Pain <GEORGE Rios - Last Filed: 03/18/18 22:10> Lab Data Result diagrams: 03/19/18 06:07 03/19/18 06:07 Lab Results 03/18/18 03/18/18 03/18/18 Range/Units 14:30 14:30 14:30 WBC 16.9 H (4.5-11.0) X10^3/uL RBC 4.65 (4.5-5.9) X10^6/uL Hgb 12.9 L (13.5-17.5) g/dL Hct 39.7 L (41-53) % MCV 85.4 (80-100) fL MCH 27.8 (26-34) PG MCHC 32.5 (30-36) % RDW 16.3 H (11.6-14.8) % Plt Count 383 (150-400) X10^3/uL Neut % (Auto) 78.6 H (50-75) % Lymph % (Auto) 13.4 L (25-40) % Sullivan % (Auto) 7.3 (3-14) % Eos % (Auto) 0.1 L (2-4) % Baso % (Auto) 0.6 (0-2) % Neut # (Auto) 04944 H (3817-9674) /uL PT 13.1 H (10.1-12.7) SECONDS INR 1.1 (0.9-1.3) Sodium 135 L (137-145) mmol/L Potassium 4.0 (3.4-5.1) mmol/L Chloride 94 L (98-107) mmol/L Carbon Dioxide 29 (22-32) mmol/L BUN 15 (9-20) mg/dL Creatinine 0.80 (0.66-1.25) mg/dL Estimated GFR > 60.0 (>60) mL/min BUN/Creatinine Ratio 18.8 (6-22) Glucose 109 (80-110) mg/dL Lactate (0.7-2.1) mmol/L Calcium 9.0 (8.4-10.2) mg/dL Phosphorus 3.6 (2.3-3.7) mg/dL Magnesium 1.6 (1.6-2.3) mg/dL Total Bilirubin 0.9 (0.2-1.3) mg/dL AST 45 (17-59) IU/L ALT 60 (21-72) IU/L Alkaline Phosphatase 96 (38-126) U/L C-Reactive Protein (<1.0) mg/dL Total Protein 7.1 (6.3-8.2) g/dL Albumin 3.7 (3.5-5.0) g/dL Globulin 3.4 (1.7-4.1) g/dL Albumin/Globulin Ratio 1.1 (1.0-2.8) Lipase 53 (23-300) U/L Procalcitonin (<0.5) ng/mL TSH (0.47-4.68) uIU/mL Urine Color Urine Appearance Urine pH (4.5-8.0) Ur Specific [place] (1.000-1.035) Urine Protein (Negative) Urine Glucose (UA) (Normal) g/dL Urine Ketones (NEGATIVE) Urine Occult Blood (Negative) Urine Nitrate (Negative) Urine Bilirubin (NEGATIVE) Urine Urobilinogen (0.2) E.U./dL Ur Leukocyte Esterase (NEGATIVE) Urine RBC (0-5/HPF) Urine WBC (0-5/HPF) Urine Bacteria (None) Ur Culture Indicated? Micro UA Comment 03/18/18 03/18/18 03/18/18 Range/Units 14:30 14:30 19:55 WBC (4.5-11.0) X10^3/uL RBC (4.5-5.9) X10^6/uL Hgb (13.5-17.5) g/dL Hct (41-53) % MCV (80-100) fL MCH (26-34) PG MCHC (30-36) % RDW (11.6-14.8) % Plt Count (150-400) X10^3/uL Neut % (Auto) (50-75) % Lymph % (Auto) (25-40) % Sullivan % (Auto) (3-14) % Eos % (Auto) (2-4) % Baso % (Auto) (0-2) % Neut # (Auto) (1874-3880) /uL PT (10.1-12.7) SECONDS INR (0.9-1.3) Sodium (137-145) mmol/L Potassium (3.4-5.1) mmol/L Chloride (98-107) mmol/L Carbon Dioxide (22-32) mmol/L BUN (9-20) mg/dL Creatinine (0.66-1.25) mg/dL Estimated GFR (>60) mL/min BUN/Creatinine Ratio (6-22) Glucose (80-110) mg/dL Lactate (0.7-2.1) mmol/L Calcium (8.4-10.2) mg/dL Phosphorus (2.3-3.7) mg/dL Magnesium (1.6-2.3) mg/dL Total Bilirubin (0.2-1.3) mg/dL AST (17-59) IU/L ALT (21-72) IU/L Alkaline Phosphatase (38-126) U/L C-Reactive Protein 3.9 H (<1.0) mg/dL Total Protein (6.3-8.2) g/dL Albumin (3.5-5.0) g/dL Globulin (1.7-4.1) g/dL Albumin/Globulin Ratio (1.0-2.8) Lipase (23-300) U/L Procalcitonin 0.16 (<0.5) ng/mL TSH (0.47-4.68) uIU/mL Urine Color Yellow Urine Appearance Clear Urine pH 8.0 (4.5-8.0) Ur Specific [place] 1.010 (1.000-1.035) Urine Protein Negative (Negative) Urine Glucose (UA) Negative (Normal) g/dL Urine Ketones Negative (NEGATIVE) Urine Occult Blood Negative (Negative) Urine Nitrate Negative (Negative) Urine Bilirubin Negative (NEGATIVE) Urine Urobilinogen 0.2 (0.2) E.U./dL Ur Leukocyte Esterase Negative (NEGATIVE) Urine RBC None seen (0-5/HPF) Urine WBC None seen (0-5/HPF) Urine Bacteria None seen (None) Ur Culture Indicated? Cult not indicated Micro UA Comment Microscopic normal 03/18/18 03/18/18 03/19/18 Range/Units 23:25 Unknown 06:07 WBC 9.6 (4.5-11.0) X10^3/uL RBC 4.09 L (4.5-5.9) X10^6/uL Hgb 11.8 L (13.5-17.5) g/dL Hct 34.4 L (41-53) % MCV 84.2 (80-100) fL MCH 29.0 (26-34) PG MCHC 34.4 (30-36) % RDW 16.2 H (11.6-14.8) % Plt Count 306 (150-400) X10^3/uL Neut % (Auto) 74.4 (50-75) % Lymph % (Auto) 15.7 L (25-40) % Sullivan % (Auto) 8.7 (3-14) % Eos % (Auto) 0.8 L (2-4) % Baso % (Auto) 0.4 (0-2) % Neut # (Auto) 7200 H (1307-6362) /uL PT (10.1-12.7) SECONDS INR (0.9-1.3) Sodium (137-145) mmol/L Potassium (3.4-5.1) mmol/L Chloride (98-107) mmol/L Carbon Dioxide (22-32) mmol/L BUN (9-20) mg/dL Creatinine (0.66-1.25) mg/dL Estimated GFR (>60) mL/min BUN/Creatinine Ratio (6-22) Glucose (80-110) mg/dL Lactate 1.1 (0.7-2.1) mmol/L Calcium (8.4-10.2) mg/dL Phosphorus (2.3-3.7) mg/dL Magnesium (1.6-2.3) mg/dL Total Bilirubin (0.2-1.3) mg/dL AST (17-59) IU/L ALT (21-72) IU/L Alkaline Phosphatase (38-126) U/L C-Reactive Protein (<1.0) mg/dL Total Protein (6.3-8.2) g/dL Albumin (3.5-5.0) g/dL Globulin (1.7-4.1) g/dL Albumin/Globulin Ratio (1.0-2.8) Lipase (23-300) U/L Procalcitonin (<0.5) ng/mL TSH 1.57 (0.47-4.68) uIU/mL Urine Color Urine Appearance Urine pH (4.5-8.0) Ur Specific [place] (1.000-1.035) Urine Protein (Negative) Urine Glucose (UA) (Normal) g/dL Urine Ketones (NEGATIVE) Urine Occult Blood (Negative) Urine Nitrate (Negative) Urine Bilirubin (NEGATIVE) Urine Urobilinogen (0.2) E.U./dL Ur Leukocyte Esterase (NEGATIVE) Urine RBC (0-5/HPF) Urine WBC (0-5/HPF) Urine Bacteria (None) Ur Culture Indicated? Micro UA Comment 03/19/18 Range/Units 06:07 WBC (4.5-11.0) X10^3/uL RBC (4.5-5.9) X10^6/uL Hgb (13.5-17.5) g/dL Hct (41-53) % MCV (80-100) fL MCH (26-34) PG MCHC (30-36) % RDW (11.6-14.8) % Plt Count (150-400) X10^3/uL Neut % (Auto) (50-75) % Lymph % (Auto) (25-40) % Sullivan % (Auto) (3-14) % Eos % (Auto) (2-4) % Baso % (Auto) (0-2) % Neut # (Auto) (9213-4779) /uL PT (10.1-12.7) SECONDS INR (0.9-1.3) Sodium 139 (137-145) mmol/L Potassium 4.1 (3.4-5.1) mmol/L Chloride 100 (98-107) mmol/L Carbon Dioxide 29 (22-32) mmol/L BUN 13 (9-20) mg/dL Creatinine 0.70 (0.66-1.25) mg/dL Estimated GFR > 60.0 (>60) mL/min BUN/Creatinine Ratio 18.6 (6-22) Glucose 109 (80-110) mg/dL Lactate (0.7-2.1) mmol/L Calcium 8.7 (8.4-10.2) mg/dL Phosphorus (2.3-3.7) mg/dL Magnesium (1.6-2.3) mg/dL Total Bilirubin 0.7 (0.2-1.3) mg/dL AST 35 (17-59) IU/L ALT 45 (21-72) IU/L Alkaline Phosphatase 85 (38-126) U/L C-Reactive Protein (<1.0) mg/dL Total Protein 6.2 L (6.3-8.2) g/dL Albumin 3.1 L (3.5-5.0) g/dL Globulin 3.1 (1.7-4.1) g/dL Albumin/Globulin Ratio 1.0 (1.0-2.8) Lipase (23-300) U/L Procalcitonin (<0.5) ng/mL TSH (0.47-4.68) uIU/mL Urine Color Urine Appearance Urine pH (4.5-8.0) Ur Specific [place] (1.000-1.035) Urine Protein (Negative) Urine Glucose (UA) (Normal) g/dL Urine Ketones (NEGATIVE) Urine Occult Blood (Negative) Urine Nitrate (Negative) Urine Bilirubin (NEGATIVE) Urine Urobilinogen (0.2) E.U./dL Ur Leukocyte Esterase (NEGATIVE) Urine RBC (0-5/HPF) Urine WBC (0-5/HPF) Urine Bacteria (None) Ur Culture Indicated? Micro UA Comment Point of care testing: Urine Dip Bedside Urine Glucose Negative Bedside Urine Bilirubin - Negative Bedside Urine Ketone - Negative Urine Specific [place] 1.010 Bedside Urine Occult Blood - Negative Bedside Urine pH 8.5 Bedside Urine Protein - Negative Bedside Urine Urobilinogen - Negative Bedside Urine Nitrite - Negative Bedside Urine Leukocytes - Negative Esterase Imaging Data Chest x-ray: Radiologist's impression: [address] [id number] XRay Report Signed Patient: Yash Davila [facility]#: [id number] : 5Acct:[id number] Age/Sex: 63 / MDate of Service: 03/18/18 Loc: ED Accession Number: [id number] Procedure: XR chest 1V Ordering Provider: Saeed Manrique PROCEDURE: XR CHEST 1V INDICATIONS: continued shortness of breath and cough TECHNIQUE: One view of the chest was acquired. [facility] 20[facility]01. FINDINGS: Surgical changes and devices: Postoperative changes of the lower cervical spine are present. There is a left-sided Port-A-Cath central line identified with the tip unchanged in position with the tip overlying the distal left brachiocephalic vein near the confluence with the superior vena cava. Lungs and pleura: Low lung volumes on the right are present. There maybe postoperative changes of the right lung. Interstitial prominence within the perihilar regions is similar to the prior study. No new areas of consolidation are present. There is no pneumothorax. Mediastinum: Mediastinal contours appear normal. Heart size is normal. Bones and chest wall: No suspicious bony lesions. Overlying soft tissues appear unremarkable. IMPRESSION: Stable chest. No acute cardiopulmonary process is evident. Dictated by: Armando Tracy M.D. on 03/18/2018 at 15:14 Approved by: Armando Tracy M.D. on 03/18/2018 at 15:15 CT scan - abdomen: Radiologist's impression: [facility] [id number] CT Scan Report Signed Patient: Yash Davila [facility]#: [id number] : 5Acct:[id number] Age/Sex: 63 / MDate of Service: 03/18/18 Loc: ED Accession Number: [id number] Procedure: CT abdomen pelvis w con Ordering Provider: Saeed Manrique PROCEDURE: CT ABDOMEN PELVIS W CON INDICATIONS: History metastatic lung cancer here for rlq pain TECHNIQUE: After the administration of oral and intravenous contrast, 5 mm thick sections acquired from the diaphragms to the symphysis. 5 mm thick coronal and sagittal reformats were performed. For radiation dose reduction, the following was used: automated exposure control, adjustment of mA and/or kV according to patient size. COMPARISON: [facility], CT, CHEST/ABD/PEL WITH CONTRAST, 06/25/2017, 11: 57. [facility], CT, CHEST/ABDOMEN WITH CONTRAST, 06/22/2016, 13:13. [facility], CT, CHEST/ABDOMEN WITH CONTRAST, 02/07/2016, 9:15. [facility], CT, ABDOMEN/ PELVIS WITH CONTRAST, 10/18/2015, 15:23. FINDINGS: Image quality: Diagnostic. ABDOMEN: Lung bases: Mild areas of parenchymal scarring are seen within the right middle lobe/right lung base, similar to previous examinations, but less pronounced on the current study. Heart size is normal. Solid organs: The liver, spleen, adrenals, kidneys, and pancreas appear to be unchanged. A simple appearing left renal cyst is again noted. Peritoneum and bowel: There is a small hiatal hernia. Otherwise, the stomach is unremarkable. The small bowel loops are nondilated. Moderate to large amount of residual stool is identified within the colon. The appendix is not definitely seen. No free fluid or loculated fluid collection is evident. There is no free air. Nodes and vessels: No retroperitoneal or mesenteric adenopathy. Aorta and inferior vena cava are normal in caliber. There is atherosclerosis of the lower abdominal aorta and iliac arteries. No occlusions or aneurysms. Bones: There is a new Schmorl's node versus superior endplate compression deformity involving the L3 vertebral body, which was not present on the examination from . Otherwise, the osseous structures of the abdomen are intact. PELVIS: Genitourinary: Moderate thickening of the urinary bladder wall is present. The prostate gland is not appear to be significantly enlarged. However, there are coarse calcifications present within the prostate itself. Miscellaneous: No inguinal hernias or adenopathy. No free fluid or loculated fluid collections are evident. There is no free air. Bones: No suspicious bony lesions. No acute pelvic fractures are evident. They're mild to moderate degenerative changes of the pelvic joints. IMPRESSION: 1. No evidence of metastatic disease to the abdomen or pelvis. No lymphadenopathy. 2. Thickening of the urinary bladder wall may be related to chronic bladder obstruction. Please correlate clinically to exclude cystitis. 3. Large amount of residual stool throughout the colon may represent constipation. 4. Small hiatal hernia. 5. New compression deformity versus Schmorl's node involving the superior L3 endplate. The need for better characterization utilizing MRI may be determined clinically. Dictated by: Armando Tracy M.D. on 03/18/2018 at 15:00 Approved by: Armando Tracy M.D. on 03/18/2018 at 15:09 [facility] Narrative Medical decision making narrative: chest x-ray was obtained and was negative for any acute findings. CT of the abdomen was obtained and shows some thickening to the urinary bladder however his urine POC was negative for urinary tract infection. There was some stool to the colon. no other acute findings were seen. CBC shows elevated white count Of 16.9 H&H was 13 and 40. Chem panel was unremarkable lipase was negative. Sign of infection is not found at this time And symptoms may have a viral component. However due to his COPD and lung cancer and shortness of breath that has not improved over the past several weeks wound also combined with increased weakness and decreased p.o. intake discussed admission with patient patient states he feels more comfortable with admission at least for 1 day to help with hydration and he can follow up with Oncology. <Bhavik Chamorro, DO - Last Filed: 03/19/18 09:41> Lab Data Lab Results 03/18/18 03/18/18 03/18/18 Range/Units 14:30 14:30 14:30 WBC 16.9 H (4.5-11.0) X10^3/uL RBC 4.65 (4.5-5.9) X10^6/uL Hgb 12.9 L (13.5-17.5) g/dL Hct 39.7 L (41-53) % MCV 85.4 (80-100) fL MCH 27.8 (26-34) PG MCHC 32.5 (30-36) % RDW 16.3 H (11.6-14.8) % Plt Count 383 (150-400) X10^3/uL Neut % (Auto) 78.6 H (50-75) % Lymph % (Auto) 13.4 L (25-40) % [place] % (Auto) 7.3 (3-14) % Eos % (Auto) 0.1 L (2-4) % Baso % (Auto) 0.6 (0-2) % Neut # (Auto) 75521 H (0298-2670) /uL PT 13.1 H (10.1-12.7) SECONDS INR 1.1 (0.9-1.3) Sodium 135 L (137-145) mmol/L Potassium 4.0 (3.4-5.1) mmol/L Chloride 94 L (98-107) mmol/L Carbon Dioxide 29 (22-32) mmol/L BUN 15 (9-20) mg/dL Creatinine 0.80 (0.66-1.25) mg/dL Estimated GFR > 60.0 (>60) mL/min BUN/Creatinine Ratio 18.8 (6-22) Glucose 109 (80-110) mg/dL Lactate (0.7-2.1) mmol/L Calcium 9.0 (8.4-10.2) mg/dL Phosphorus 3.6 (2.3-3.7) mg/dL Magnesium 1.6 (1.6-2.3) mg/dL Total Bilirubin 0.9 (0.2-1.3) mg/dL AST 45 (17-59) IU/L ALT 60 (21-72) IU/L Alkaline Phosphatase 96 (38-126) U/L C-Reactive Protein (<1.0) mg/dL Total Protein 7.1 (6.3-8.2) g/dL Albumin 3.7 (3.5-5.0) g/dL Globulin 3.4 (1.7-4.1) g/dL Albumin/Globulin Ratio 1.1 (1.0-2.8) Lipase 53 (23-300) U/L Procalcitonin (<0.5) ng/mL TSH (0.47-4.68) uIU/mL Urine Color Urine Appearance Urine pH (4.5-8.0) Ur Specific [place] (1.000-1.035) Urine Protein (Negative) Urine Glucose (UA) (Normal) g/dL Urine Ketones (NEGATIVE) Urine Occult Blood (Negative) Urine Nitrate (Negative) Urine Bilirubin (NEGATIVE) Urine Urobilinogen (0.2) E.U./dL Ur Leukocyte Esterase (NEGATIVE) Urine RBC (0-5/HPF) Urine WBC (0-5/HPF) Urine Bacteria (None) Ur Culture Indicated? Micro UA Comment 03/18/18 03/18/18 03/18/18 Range/Units 14:30 14:30 19:55 WBC (4.5-11.0) X10^3/uL RBC (4.5-5.9) X10^6/uL Hgb (13.5-17.5) g/dL Hct (41-53) % MCV (80-100) fL MCH (26-34) PG MCHC (30-36) % RDW (11.6-14.8) % Plt Count (150-400) X10^3/uL Neut % (Auto) (50-75) % Lymph % (Auto) (25-40) % Sullivan % (Auto) (3-14) % Eos % (Auto) (2-4) % Baso % (Auto) (0-2) % Neut # (Auto) (9301-9216) /uL PT (10.1-12.7) SECONDS INR (0.9-1.3) Sodium (137-145) mmol/L Potassium (3.4-5.1) mmol/L Chloride (98-107) mmol/L Carbon Dioxide (22-32) mmol/L BUN (9-20) mg/dL Creatinine (0.66-1.25) mg/dL Estimated GFR (>60) mL/min BUN/Creatinine Ratio (6-22) Glucose (80-110) mg/dL Lactate (0.7-2.1) mmol/L Calcium (8.4-10.2) mg/dL Phosphorus (2.3-3.7) mg/dL Magnesium (1.6-2.3) mg/dL Total Bilirubin (0.2-1.3) mg/dL AST (17-59) IU/L ALT (21-72) IU/L Alkaline Phosphatase (38-126) U/L C-Reactive Protein 3.9 H (<1.0) mg/dL Total Protein (6.3-8.2) g/dL Albumin (3.5-5.0) g/dL Globulin (1.7-4.1) g/dL Albumin/Globulin Ratio (1.0-2.8) Lipase (23-300) U/L Procalcitonin 0.16 (<0.5) ng/mL TSH (0.47-4.68) uIU/mL Urine Color Yellow Urine Appearance Clear Urine pH 8.0 (4.5-8.0) Ur Specific [place] 1.010 (1.000-1.035) Urine Protein Negative (Negative) Urine Glucose (UA) Negative (Normal) g/dL Urine Ketones Negative (NEGATIVE) Urine Occult Blood Negative (Negative) Urine Nitrate Negative (Negative) Urine Bilirubin Negative (NEGATIVE) Urine Urobilinogen 0.2 (0.2) E.U./dL Ur Leukocyte Esterase Negative (NEGATIVE) Urine RBC None seen (0-5/HPF) Urine WBC None seen (0-5/HPF) Urine Bacteria None seen (None) Ur Culture Indicated? Cult not indicated Micro UA Comment Microscopic normal 03/18/18 03/18/18 03/19/18 Range/Units 23:25 Unknown 06:07 WBC 9.6 (4.5-11.0) X10^3/uL RBC 4.09 L (4.5-5.9) X10^6/uL Hgb 11.8 L (13.5-17.5) g/dL Hct 34.4 L (41-53) % MCV 84.2 (80-100) fL MCH 29.0 (26-34) PG MCHC 34.4 (30-36) % RDW 16.2 H (11.6-14.8) % Plt Count 306 (150-400) X10^3/uL Neut % (Auto) 74.4 (50-75) % Lymph % (Auto) 15.7 L (25-40) % Sullivan % (Auto) 8.7 (3-14) % Eos % (Auto) 0.8 L (2-4) % Baso % (Auto) 0.4 (0-2) % Neut # (Auto) 7200 H (2926-4482) /uL PT (10.1-12.7) SECONDS INR (0.9-1.3) Sodium (137-145) mmol/L Potassium (3.4-5.1) mmol/L Chloride (98-107) mmol/L Carbon Dioxide (22-32) mmol/L BUN (9-20) mg/dL Creatinine (0.66-1.25) mg/dL Estimated GFR (>60) mL/min BUN/Creatinine Ratio (6-22) Glucose (80-110) mg/dL Lactate 1.1 (0.7-2.1) mmol/L Calcium (8.4-10.2) mg/dL Phosphorus (2.3-3.7) mg/dL Magnesium (1.6-2.3) mg/dL Total Bilirubin (0.2-1.3) mg/dL AST (17-59) IU/L ALT (21-72) IU/L Alkaline Phosphatase (38-126) U/L C-Reactive Protein (<1.0) mg/dL Total Protein (6.3-8.2) g/dL Albumin (3.5-5.0) g/dL Globulin (1.7-4.1) g/dL Albumin/Globulin Ratio (1.0-2.8) Lipase (23-300) U/L Procalcitonin (<0.5) ng/mL TSH 1.57 (0.47-4.68) uIU/mL Urine Color Urine Appearance Urine pH (4.5-8.0) Ur Specific [place] (1.000-1.035) Urine Protein (Negative) Urine Glucose (UA) (Normal) g/dL Urine Ketones (NEGATIVE) Urine Occult Blood (Negative) Urine Nitrate (Negative) Urine Bilirubin (NEGATIVE) Urine Urobilinogen (0.2) E.U./dL Ur Leukocyte Esterase (NEGATIVE) Urine RBC (0-5/HPF) Urine WBC (0-5/HPF) Urine Bacteria (None) Ur Culture Indicated? Micro UA Comment 03/19/18 Range/Units 06:07 WBC (4.5-11.0) X10^3/uL RBC (4.5-5.9) X10^6/uL Hgb (13.5-17.5) g/dL Hct (41-53) % MCV (80-100) fL MCH (26-34) PG MCHC (30-36) % RDW (11.6-14.8) % Plt Count (150-400) X10^3/uL Neut % (Auto) (50-75) % Lymph % (Auto) (25-40) % Sullivan % (Auto) (3-14) % Eos % (Auto) (2-4) % Baso % (Auto) (0-2) % Neut # (Auto) (1688-9071) /uL PT (10.1-12.7) SECONDS INR (0.9-1.3) Sodium 139 (137-145) mmol/L Potassium 4.1 (3.4-5.1) mmol/L Chloride 100 (98-107) mmol/L Carbon Dioxide 29 (22-32) mmol/L BUN 13 (9-20) mg/dL Creatinine 0.70 (0.66-1.25) mg/dL Estimated GFR > 60.0 (>60) mL/min BUN/Creatinine Ratio 18.6 (6-22) Glucose 109 (80-110) mg/dL Lactate (0.7-2.1) mmol/L Calcium 8.7 (8.4-10.2) mg/dL Phosphorus (2.3-3.7) mg/dL Magnesium (1.6-2.3) mg/dL Total Bilirubin 0.7 (0.2-1.3) mg/dL AST 35 (17-59) IU/L ALT 45 (21-72) IU/L Alkaline Phosphatase 85 (38-126) U/L C-Reactive Protein (<1.0) mg/dL Total Protein 6.2 L (6.3-8.2) g/dL Albumin 3.1 L (3.5-5.0) g/dL Globulin 3.1 (1.7-4.1) g/dL Albumin/Globulin Ratio 1.0 (1.0-2.8) Lipase (23-300) U/L Procalcitonin (<0.5) ng/mL TSH (0.47-4.68) uIU/mL Urine Color Urine Appearance Urine pH (4.5-8.0) Ur Specific [place] (1.000-1.035) Urine Protein (Negative) Urine Glucose (UA) (Normal) g/dL Urine Ketones (NEGATIVE) Urine Occult Blood (Negative) Urine Nitrate (Negative) Urine Bilirubin (NEGATIVE) Urine Urobilinogen (0.2) E.U./dL Ur Leukocyte Esterase (NEGATIVE) Urine RBC (0-5/HPF) Urine WBC (0-5/HPF) Urine Bacteria (None) Ur Culture Indicated? Micro UA Comment Point of care testing: Urine Dip Bedside Urine Glucose Negative Bedside Urine Bilirubin - Negative Bedside Urine Ketone - Negative Urine Specific [place] 1.010 Bedside Urine Occult Blood - Negative Bedside Urine pH 8.5 Bedside Urine Protein - Negative Bedside Urine Urobilinogen - Negative Bedside Urine Nitrite - Negative Bedside Urine Leukocytes - Negative Esterase Discharge Plan Departure Patient Disposition: Admitted As Inpatient Clinical Impression: COPD (chronic obstructive pulmonary disease) Discharge Date/Time: 03/18/18 18:01 Interventions: ED Discharge Assessment Last Done: 03/18/18 18:01 Admit Date/Time: 03/18/18 17:31 Admit Provider: Donnell Pool <Bhavik Chamorro DO - Last Filed: 03/19/18 09:41> Cosign ED Attending Nita Attestation: I was immediately available in the department for consultation. Documentation has been reviewed. I agree with assessment and plan.
--- NOTE | 2018-03-18 17:37 | PC.NURSE ---
Took patient dinner tray from cafeteria and gave him two apple juice
[2018-03-18 17:57] LABS: HEMOLYSIS 21 (0-50); Magnesium 1.6 mg/dL (1.6-2.3); Phosphorous 3.6 mg/dL (2.3-3.7)
[2018-03-18] MEDS: SODIUM CHLORIDE 0.9% 1,000 ML 80 ML IV (19:31)
[2018-03-18] MEDS: ALBUTEROL/IPRATROPIUM 3 ML AMPUL INH (19:36)
[2018-03-18] MEDS: POLYETHYLENE GLYCOL 3350 17 GM POWD.PACK PO (19:38)
[2018-03-18] MEDS: BISACODYL 10 MG SUPP PR (19:38)
--- NOTE | 2018-03-18 20:04 | PM.HP.1 ---
History of Present Illness Chief complaint: stomach hurts bad, breathing is not well, cancer Narrative: PMH: Metastatic lung cancer (dx 2016) h/o of chemo and radiation therapy, COPD, DVT, immune related hypothyroidism, tobacco dependence, CAD (h/o stenting), stenosis of cervical spine (s/p cervical spine surgery), and hiatal hernia. CC: My stomach hurts. I have lung cancer. I had hard time breathing. Shortness of breath Onset, since January 2018. He is known to have been hospitalized at [facility] 01/13 through 01/16 for post obstructive pneumonia (tx w/ Zosyn / Augmentin). Patient was being treated w/ nivolumab (duration 2 yrs, 11/2015 until 02/23/2018), he was noted to have developed progressive worsening dyspnea, and his treatment was placed on hold out of concern for immune mediated pneumonitis. At that time CT imaging revealed new metastasis to the bone (right rib cage / pathologic fractures). Associated sx include: CP, cough with purulence (yellow, improved from 1 week ago), decreased energy / fatigue, decreased appetite, dizziness and lightheadedness. CP intermittent, characterized as a sharp / ache / constrictive, magnitude does not exceed 3/10 w/o associated arm, neck, and jaw pain / dyspnea / palpitations. Not O2 dependent. No subjective fever or chills. However, does note experiencing sensation of being hot or cold frequently w/o overt diaphoresis or shivering. On 03/09 he was seen in the ED and at that time prescribed levofloxacin (now completed) and a course of a steroid taper. Patient does not see a significant improvement nor decline in his symptoms with aforementioned treatment. However, he does note slight decrease in phlegm production. Continues to smoke, 3-4 cigarettes daily. CXR, 03/18/2018, unremarkable for acute cardiopulmonary findings. CT of chest on 03/09/2018 revealed a cavitary mass with surrounding compressed lung involving the right lung apex. Narrowing of the right upper lobe bronchus noted. Emphysematous changes. Abdominal Pain Onset is acute, initially noted 2 days ago. Localized to the right lower and left lower quadrants of the abdomen. Does not radiate to the flank or back. No nausea, vomiting, or diarrhea. Last BM 5 days ago. Reports diminished appetite and minimal food consumption. Denies abdominal distention or dyspepsia. He does use opioids routinely. Not sure if sx exacerbated w/ food consumption. Symptoms are relieved with defecation. Passing flatus. Denies melena and hematochezia. No suprapubic discomfort. No dysuria or hematuria. Notes hesitancy. Patient History Medical History DVT of upper extremity (deep vein thrombosis) (Acute) COPD (chronic obstructive pulmonary disease) (Chronic) Hypothyroid (Chronic) Lung cancer, primary, with metastasis from lung to other site (Chronic) Family & Social History Family History: Reviewed 03/09/18 by Selena Mcallister DO Social History: household members spouse,caregiver Prior Living Arrangements Mobile home Safety & Behavioral: Feels Safe in Current Yes Environment Been Physically Hurt or No Threatened By a Person Suicidal Ideation Description None Suicide Plan Description No Plan Tobacco & Substance use: Tobacco type cigarettes Smoking Status Current every day smoker, less than 1/2 ppd alcohol intake former alcohol intake frequency 0-2 drinks per day Substance Use Type does not use Meds Home Medications Medication Instructions Recorded Confirmed Type [DISABLED PARKING ] 1 ea X1 #1 ea 04/29/16 03/18/18 Rx acetaminophen 650 mg PO Q8H #30 tab 02/16/17 03/18/18 Rx citalopram [Celexa] 20 mg PO DAILY #90 tab 10/29/17 03/18/18 Rx pregabalin [Lyrica] 50 mg PO TID #90 cap 10/29/17 03/18/18 Rx lactulose [Enulose] 20 g PO TID PRN #120 ml 01/20/18 03/18/18 Rx levothyroxine 137 mcg PO DAILY #60 tab 01/20/18 03/18/18 Rx hydroxyzine HCl 25 - 50 mg PO Q6H PRN #60 tab 02/03/18 03/18/18 Rx hydrocodone-acetaminophen 1 tab PO Q4-6H PRN #90 tab 02/23/18 03/18/18 Rx levofloxacin [Levaquin] 750 mg PO DAILY #7 tab 03/09/18 03/18/18 Rx prednisone 10 mg PO DAILY #30 tab 03/09/18 03/18/18 Rx oxycodone 10 mg PO Q4-6H PRN #60 tab 03/10/18 03/18/18 Rx albuterol sulfate [ProAir HFA] 1 puff INH Q6H 03/18/18 03/18/18 History esomeprazole magnesium 20 mg PO DAILY 03/18/18 03/18/18 History Allergies Allergy/AdvReac Type Severity Reaction Status Date / Time aspirin [ASPIRIN] AdvReac Mild NAUSEA Verified 03/18/18 13:36 Review of Systems Review of Systems All systems reviewed & are unremarkable except as noted in HPI and below Exam Vital Signs (past 8 hours): - 03/18/18 13:36 03/18/18 15:00 03/18/18 16:00 Temperature 98.1 F Pulse Rate 94 H 81 80 Respiratory Rate 24 25 H Blood Pressure 90/63 Blood Pressure [Left Arm] 111/69 87/70 L Pulse Oximetry 98 97 95 03/18/18 17:00 03/18/18 18:01 03/18/18 19:05 Temperature 98.2 F Pulse Rate 76 91 H 66 Respiratory Rate 25 H 22 18 Blood Pressure 119/64 108/66 Blood Pressure [Left Arm] 112/67 Pulse Oximetry 94 94 95 03/18/18 19:42 Temperature Pulse Rate 61 Respiratory Rate 26 H Blood Pressure Blood Pressure [Left Arm] Pulse Oximetry 94 Oxygen Delivery Method Room Air Narrative Exam Narrative: Constitutional: NAD at rest, emaciated elderly man (BMI 17.8), appears older than stated age Neurologic: AOx3, no focal neurological deficits, no lethargy, no unilateral deficits Head: NC, AT Eyes: pupils equal and reactive Ears: external ears normal, no otorrhea, diminished hearing acuity Nose: external nose normal, no rhinorrhea or epistaxis Throat: dry MM, oropharynx w/o exudate Neck: no masses, no cervical lymphadenopathy, no JVD Chest / Respiratory: equal chest rise, unlabored respiratory effort, no dyspnea or tachypnea, no wheezing breath sounds diminished b/l, more pronounced in the RLL Heart / CV: S1S2, no murmur; port-a-cath palpated left aspect of chest Abdomen / GI: round, RLQ and LLQ tenderness w/ palpation / no guarding / no rebound, ND, + normoactive, no organomegaly, no inguinal lymphadenopathy : no suprapubic tenderness Peripheral / Vascular: warm to touch, DP and PT pulses palpable, no edema Musc: full ROM of upper and lower extremities, adequate muscle tone and bulk Skin: no ecchymosis Objective Labs Result Diagrams: 03/18/18 14:30 03/18/18 14:30 Labs: Laboratory Results - last 24 hr 03/18/18 03/18/18 03/18/18 14:30 14:30 14:30 WBC 16.9 H RBC 4.65 Hgb 12.9 L Hct 39.7 L MCV 85.4 MCH 27.8 MCHC 32.5 RDW 16.3 H Plt Count 383 Neut % (Auto) 78.6 H Lymph % (Auto) 13.4 L [place] % (Auto) 7.3 Eos % (Auto) 0.1 L Baso % (Auto) 0.6 Neut # (Auto) 41040 H PT 13.1 H INR 1.1 Sodium 135 L Potassium 4.0 Chloride 94 L Carbon Dioxide 29 BUN 15 Creatinine 0.80 Estimated GFR > 60.0 BUN/Creatinine Ratio 18.8 Glucose 109 Calcium 9.0 Phosphorus 3.6 Magnesium 1.6 Total Bilirubin 0.9 AST 45 ALT 60 Alkaline Phosphatase 96 Total Protein 7.1 Albumin 3.7 Globulin 3.4 Albumin/Globulin Ratio 1.1 Lipase 53 Assessment & Plan Plan: Assessment/Plan Narrative: Shortness of breath h/o lung cancer, recently treated w/ nivolumab Likely pneumonitis DDx: acute exacerbation of COPD vs compressive / obstructive lung disease (ie tumor) vs pulmonary fibrosis vs bronchiectasis - Continue steroids, adjust prednisone dose and taper per hypersensitivity pneumonitis recomendations 0.5-1 mg/kg/day, tapering by 5-10 mg/day every other day for 6 weeks; will start w/ 40 mg daily x2 weeks, tapering thereafter (see order w/ instructions) - Continue to hold nivolumab until resolution of pneumonitis - Blood and Sputum Cx - Flutter valve / PEP therapy QID - Smoking cessation encouraged Obstipation Potentially opioid induced. - bowel regimen - gentle hydration - avoid / reduce use of opioids or medications w/ potential for constipation Leukocytosis, WBC 16.9 DDx: Steroid induced, on a tapering steroid course since 03/09 Sepsis... leukocytosis, BP 90/63 HR 94 RR 24 on arrival; however, no fever/chills, hypoxia, encephalopathy or target organ failure. CXR and UA not indicative of infectious process. Immunotherapy induced pneumonitis vs. pneumonia... cough w/ purulence, but improving; CXR not indicative of PNA or infectious process Post-obstructive pneumonia in the setting of malignancy - Lactate, CRP, blood cx, urine legionella pneumo AG STAT - At this time will hold off on further empiric therapy, pending aforementioned labs - IVF Hyponatremia, mild (Na 135), asymptomatic - IVF x1L, re-evaluate need for further hydration in am - BMP in am Hypovolemia Multi-factorial... 2/2 diminished food and fluid intake vs underlying malignancy vs potential infection vs respiratory decompensation - IVF, optimize volume status Generalized Weakness Multi-factorial... immunocompromised, active malignancy, recent hospilization, deconditioning - PT / OT eval and treat - Patient is at high risk for further debility / deconditioning w/ prolonged hospitalization Hypomagnesemia, Mg 1.6 - borderline - replete w/ 2 gm MgSO4 IV now - Mg in am Tobacco dependence - smoking cessation highly encouraged, smoking cessation education - nicotine patch COPD w/o overt acute exacerbation - Consult RT, protocol - Bronchodilators, steroids, oxygen prn - Recently completed a 5 day course of levofloxacin, will hold off on further empiric therapy Pathologic rib fractures, right posterior rib 4, 5, and 6 - Lidocaine patch prn New compression deformity vs. Schmorl's node involving the superior L3 endplate - consider f/u with further MRI imaging Protein calorie malnutrition, severe, BMI 17.8 - consult manufacturing quality inspector Hypothyroidism (immune related), TSH labile - TSH - Resume [employer] dose of levothyroxine Patient wishes to be full code. Reports having a formal health directive, but not sure. Designates his caregiver as a surrogate decision maker. Home medications reviewed and reconciled accordingly VTE - SCDs, lovenox Face to face time w/ patient 37 minutes Quality VTE Deep Vein Thrombosis/Pulmonary Embolism Present on Admission: No
--- NOTE | 2018-03-18 20:07 | P.HP_ITS ---
History of Present Illness Chief complaint: stomach hurts bad, breathing is not well, cancer Narrative: PMH: Metastatic lung cancer (dx 2016) h/o of chemo and radiation therapy, COPD, DVT, immune related hypothyroidism, tobacco dependence, CAD (h/o stenting), stenosis of cervical spine (s/p cervical spine surgery), and hiatal hernia. CC: My stomach hurts. I have lung cancer. I had hard time breathing. Shortness of breath Onset, since January 2018. He is known to have been hospitalized at [facility] 01/13 through 01/16 for post obstructive pneumonia (tx w/ Zosyn / Augmentin). Patient was being treated w/ nivolumab (duration 2 yrs, 11/2015 until 02/23/2018), he was noted to have developed progressive worsening dyspnea , and his treatment was placed on hold out of concern for immune mediated pneumonitis. At that time CT imaging revealed new metastasis to the bone (right rib cage / pathologic fractures). Associated sx include: CP, cough with purulence (yellow, improved from 1 week ago), decreased energy / fatigue, decreased appetite, dizziness and lightheadedness. CP intermittent, characterized as a sharp / ache / constrictive, magnitude does not exceed 3/10 w /o associated arm, neck, and jaw pain / dyspnea / palpitations. Not O2 dependent. No subjective fever or chills. However, does note experiencing sensation of being hot or cold frequently w/o overt diaphoresis or shivering. On 03/09 he was seen in the ED and at that time prescribed levofloxacin (now completed) and a course of a steroid taper. Patient does not see a significant improvement nor decline in his symptoms with aforementioned treatment. However , he does note slight decrease in phlegm production. Continues to smoke, 3-4 cigarettes daily. CXR, 03/18/2018, unremarkable for acute cardiopulmonary findings. CT of chest on 03/09/2018 revealed a cavitary mass with surrounding compressed lung involving the right lung apex. Narrowing of the right upper lobe bronchus noted. Emphysematous changes. Abdominal Pain Onset is acute, initially noted 2 days ago. Localized to the right lower and left lower quadrants of the abdomen. Does not radiate to the flank or back. No nausea, vomiting, or diarrhea. Last BM 5 days ago. Reports diminished appetite and minimal food consumption. Denies abdominal distention or dyspepsia. He does use opioids routinely. Not sure if sx exacerbated w/ food consumption. Symptoms are relieved with defecation. Passing flatus. Denies melena and hematochezia. No suprapubic discomfort. No dysuria or hematuria. Notes hesitancy. Patient History Medical History DVT of upper extremity (deep vein thrombosis) (Acute) COPD (chronic obstructive pulmonary disease) (Chronic) Hypothyroid (Chronic) Lung cancer, primary, with metastasis from lung to other site (Chronic) Family & Social History Family History: Reviewed 03/09/18 by Selena Mcallister DO Social History: household members spouse,caregiver Prior Living Arrangements Mobile home Safety & Behavioral: Feels Safe in Current Yes Environment Been Physically Hurt or No Threatened By a Person Suicidal Ideation Description None Suicide Plan Description No Plan Tobacco & Substance use: Tobacco type cigarettes Smoking Status Current every day smoker, less than 1/2 ppd alcohol intake former alcohol intake frequency 0-2 drinks per day Substance Use Type does not use Meds Home Medications Medication Instructions Recorded Confirmed Type [DISABLED PARKING ] 1 ea X1 #1 ea 04/29/16 03/18/18 Rx acetaminophen 650 mg PO Q8H #30 tab 02/16/17 03/18/18 Rx citalopram [Celexa] 20 mg PO DAILY #90 tab 10/29/17 03/18/18 Rx pregabalin [Lyrica] 50 mg PO TID #90 cap 10/29/17 03/18/18 Rx lactulose [Enulose] 20 g PO TID PRN #120 ml 01/20/18 03/18/18 Rx levothyroxine 137 mcg PO DAILY #60 tab 01/20/18 03/18/18 Rx hydroxyzine HCl 25 - 50 mg PO Q6H PRN #60 tab 02/03/18 03/18/18 Rx hydrocodone-acetaminophen 1 tab PO Q4-6H PRN #90 tab 02/23/18 03/18/18 Rx levofloxacin [Levaquin] 750 mg PO DAILY #7 tab 03/09/18 03/18/18 Rx prednisone 10 mg PO DAILY #30 tab 03/09/18 03/18/18 Rx oxycodone 10 mg PO Q4-6H PRN #60 tab 03/10/18 03/18/18 Rx albuterol sulfate [ProAir HFA] 1 puff INH Q6H 03/18/18 03/18/18 History esomeprazole magnesium 20 mg PO DAILY 03/18/18 03/18/18 History Allergies Allergy/AdvReac Type Severity Reaction Status Date / Time aspirin [ASPIRIN] AdvReac Mild NAUSEA Verified 03/18/18 13:36 Review of Systems Review of Systems All systems reviewed & are unremarkable except as noted in HPI and below Exam Vital Signs (past 8 hours): - 03/18/18 13:36 03/18/18 15:00 03/18/18 16:00 Temperature 98.1 F Pulse Rate 94 H 81 80 Respiratory Rate 24 25 H Blood Pressure 90/63 Blood Pressure [Left Arm] 111/69 87/70 L Pulse Oximetry 98 97 95 03/18/18 17:00 03/18/18 18:01 03/18/18 19:05 Temperature 98.2 F Pulse Rate 76 91 H 66 Respiratory Rate 25 H 22 18 Blood Pressure 119/64 108/66 Blood Pressure [Left Arm] 112/67 Pulse Oximetry 94 94 95 03/18/18 19:42 Temperature Pulse Rate 61 Respiratory Rate 26 H Blood Pressure Blood Pressure [Left Arm] Pulse Oximetry 94 Oxygen Delivery Method Room Air Narrative Exam Narrative: Constitutional: NAD at rest, emaciated elderly man (BMI 17.8), appears older than stated age Neurologic: AOx3, no focal neurological deficits, no lethargy, no unilateral deficits Head: NC, AT Eyes: pupils equal and reactive Ears: external ears normal, no otorrhea, diminished hearing acuity Nose: external nose normal, no rhinorrhea or epistaxis Throat: dry MM, oropharynx w/o exudate Neck: no masses, no cervical lymphadenopathy, no JVD Chest / Respiratory: equal chest rise, unlabored respiratory effort, no dyspnea or tachypnea, no wheezing breath sounds diminished b/l, more pronounced in the RLL Heart / CV: S1S2, no murmur; port-a-cath palpated left aspect of chest Abdomen / GI: round, RLQ and LLQ tenderness w/ palpation / no guarding / no rebound, ND, + normoactive, no organomegaly, no inguinal lymphadenopathy : no suprapubic tenderness Peripheral / Vascular: warm to touch, DP and PT pulses palpable, no edema Musc: full ROM of upper and lower extremities, adequate muscle tone and bulk Skin: no ecchymosis Objective Labs Result Diagrams: 03/18/18 14:30 03/18/18 14:30 Labs: Laboratory Results - last 24 hr 03/18/18 03/18/18 03/18/18 14:30 14:30 14:30 WBC 16.9 H RBC 4.65 Hgb 12.9 L Hct 39.7 L MCV 85.4 MCH 27.8 MCHC 32.5 RDW 16.3 H Plt Count 383 Neut % (Auto) 78.6 H Lymph % (Auto) 13.4 L [place] % (Auto) 7.3 Eos % (Auto) 0.1 L Baso % (Auto) 0.6 Neut # (Auto) 51360 H PT 13.1 H INR 1.1 Sodium 135 L Potassium 4.0 Chloride 94 L Carbon Dioxide 29 BUN 15 Creatinine 0.80 Estimated GFR > 60.0 BUN/Creatinine Ratio 18.8 Glucose 109 Calcium 9.0 Phosphorus 3.6 Magnesium 1.6 Total Bilirubin 0.9 AST 45 ALT 60 Alkaline Phosphatase 96 Total Protein 7.1 Albumin 3.7 Globulin 3.4 Albumin/Globulin Ratio 1.1 Lipase 53 Assessment & Plan Plan: Assessment/Plan Narrative: Shortness of breath h/o lung cancer, recently treated w/ nivolumab Likely pneumonitis DDx: acute exacerbation of COPD vs compressive / obstructive lung disease (ie tumor) vs pulmonary fibrosis vs bronchiectasis - Continue steroids, adjust prednisone dose and taper per hypersensitivity pneumonitis recomendations 0.5-1 mg/kg/day, tapering by 5-10 mg/day every other day for 6 weeks; will start w/ 40 mg daily x2 weeks, tapering thereafter (see order w/ instructions) - Continue to hold nivolumab until resolution of pneumonitis - Blood and Sputum Cx - Flutter valve / PEP therapy QID - Smoking cessation encouraged Obstipation Potentially opioid induced. - bowel regimen - gentle hydration - avoid / reduce use of opioids or medications w/ potential for constipation Leukocytosis, WBC 16.9 DDx: Steroid induced, on a tapering steroid course since 03/09 Sepsis... leukocytosis, BP 90/63 HR 94 RR 24 on arrival; however, no fever/ chills, hypoxia, encephalopathy or target organ failure. CXR and UA not indicative of infectious process. Immunotherapy induced pneumonitis vs. pneumonia... cough w/ purulence, but improving; CXR not indicative of PNA or infectious process Post-obstructive pneumonia in the setting of malignancy - Lactate, CRP, blood cx, urine legionella pneumo AG STAT - At this time will hold off on further empiric therapy, pending aforementioned labs - IVF Hyponatremia, mild (Na 135), asymptomatic - IVF x1L, re-evaluate need for further hydration in am - BMP in am Hypovolemia Multi-factorial... 2/2 diminished food and fluid intake vs underlying malignancy vs potential infection vs respiratory decompensation - IVF, optimize volume status Generalized Weakness Multi-factorial... immunocompromised, active malignancy, recent hospilization, deconditioning - PT / OT eval and treat - Patient is at high risk for further debility / deconditioning w/ prolonged hospitalization Hypomagnesemia, Mg 1.6 - borderline - replete w/ 2 gm MgSO4 IV now - Mg in am Tobacco dependence - smoking cessation highly encouraged, smoking cessation education - nicotine patch COPD w/o overt acute exacerbation - Consult RT, protocol - Bronchodilators, steroids, oxygen prn - Recently completed a 5 day course of levofloxacin, will hold off on further empiric therapy Pathologic rib fractures, right posterior rib 4, 5, and 6 - Lidocaine patch prn New compression deformity vs. Schmorl's node involving the superior L3 endplate - consider f/u with further MRI imaging Protein calorie malnutrition, severe, BMI 17.8 - consult adapted physical education specialist Hypothyroidism (immune related), TSH labile - TSH - Resume MANAGER SAP dose of levothyroxine Patient wishes to be full code. Reports having a formal health directive, but not sure. Designates his caregiver as a surrogate decision maker. Home medications reviewed and reconciled accordingly VTE - SCDs, lovenox Face to face time w/ patient 37 minutes Quality VTE Deep Vein Thrombosis/Pulmonary Embolism Present on Admission: No
[2018-03-18 20:19] LABS: Appearance Urine UA CLEAR; Bacteria Urine None Seen; Bilirubin Urine UA NEGATIVE (NEGATIVE); Color Urine UA YELLOW; Glucose Urine UA NEGATIVE (Normal); Ketones Urine UA NEGATIVE (NEGATIVE); Leukocyte Esterase Urine UA NEGATIVE (NEGATIVE); Nitrite Urine UA NEGATIVE (Negative); Occult Blood Urine UA NEGATIVE (Negative); Protein Urine UA NEGATIVE (Negative); RBC Urine None Seen (0-5/HPF); Urobilinogen Urine UA 0.2 E.U./dL (0.2); WBC Urine None Seen (0-5/HPF)
[2018-03-18] MEDS: SENNOSIDES 8.6 MG TABLET 17.2 MG PO (20:35)
[2018-03-18 20:36] LABS: Culture Indicated Urine Cult Not Indicated; Urine Comments Microscopic Normal
[2018-03-18 23:11] LABS: Procalcitonin 0.16 ng/mL (<0.5)
[2018-03-18 23:39] LABS: C-Reactive Protein Quant 3.9 mg/dL (<1.0)
[2018-03-18 23:56] LABS: Lactate 2HR (Lactic Acid Rflx) 1.1 mmol/L (0.7-2.1)
[2018-03-19] VITALS (13 sets, daily range): BP systolic 101–131; BP diastolic 57–72; PULSE 65–92; RESP 16–20; TEMP 36.6–37; O2SAT 93–100
[2018-03-19] MEDS: MAGNESIUM SULFATE 2 GM/50 ML PIGGYBACK IV (00:02)
[2018-03-19] MEDS: OXYCODONE IR 10 MG TABLET PO ×4 (00:20→20:17)
[2018-03-19 04:05] LABS: TSH w/ Reflex to FT4 1.57 uIU/mL (0.47-4.68)
[2018-03-19 06:18] LABS: Add Manual Diff / Slide Review NO; Basophils Percent Auto 0.4 % (0-2); Eosinophils Percent Auto 0.8 % (2-4); Hematocrit 34.4 % (41-53); Hemoglobin 11.8 g/dL (13.5-17.5); Lymphocytes Percent Auto 15.7 % (25-40); Mean Corpuscular HGB Conc 34.4 % (30-36); Mean Corpuscular Volume 84.2 fL (80-100); Monocytes Percent Auto 8.7 % (3-14); Neutrophils Absolute Auto 7200 /uL (1500-7000); Neutrophils Percent Auto 74.4 % (50-75); Platelet Count 306 X10^3/uL (150-400); Red Blood Cell Count 4.09 X10^6/uL (4.5-5.9); Red Cell Distribution Width 16.2 % (11.6-14.8); White Blood Cell Count 9.6 X10^3/uL (4.5-11.0)
[2018-03-19] MEDS: ALBUTEROL/IPRATROPIUM 3 ML AMPUL INH ×3 (06:19→17:46)
[2018-03-19] MEDS: PANTOPRAZOLE 20 MG TABLET PO (06:22)
[2018-03-19 06:36] LABS: Alanine Aminotransferase 45 IU/L (21-72); Albumin 3.1 g/dL (3.5-5.0); Alkaline Phosphatase 85 U/L (38-126); Aspartate Aminotransferase 35 IU/L (17-59); BUN Creatinine Ratio 18.6 (6-22); Bilirubin Total 0.7 mg/dL (0.2-1.3); Blood Urea Nitrogen 13 mg/dL (9-20); Calcium 8.7 mg/dL (8.4-10.2); Carbon Dioxide 29 mmol/L (22-32); Chloride 100 mmol/L (98-107); Estimated Glomerular Filt Rate > 60.0 mL/min (>60); Globulin 3.1 g/dL (1.7-4.1); Glucose 109 mg/dL (80-110); HEMOLYSIS < 15 (0-50); Potassium 4.1 mmol/L (3.4-5.1); Sodium 139 mmol/L (137-145); Total Protein 6.2 g/dL (6.3-8.2)
[2018-03-19] MEDS: SODIUM CHLORIDE 0.9% 1,000 ML 80 ML IV ×2 (08:04→20:27)
--- NOTE | 2018-03-19 08:40 | PT.IIE ---
Medical History (Last Reviewed 03/18/18 @ 23:43 by GEORGE Mata) DVT of upper extremity (deep vein thrombosis) (Acute) COPD (chronic obstructive pulmonary disease) (Chronic) Hypothyroid (Chronic) Lung cancer, primary, with metastasis from lung to other site (Chronic) Physical Therapy Inpatient Evaluation/Re-Eval M1 PT/OT-IP Prior Functional Status Start: 03/19/18 09:28 Freq: NEEDED Status: Active Protocol: Document 03/19/18 08:40 AB (Rec: 03/19/18 09:39 AB [id number]) Medical Review Prior Functional Status Medical History Reviewed Yes Communication pt able to make needs known Mobility and Gait pt stated that he is modified independent with all mobilities and ambulation without AD but occasionally uses 2 SPC or a 4WW for outdoor ambulation depending on distance and how he feels per pt Social History Household Members spouse caregiver Living Arrangements Mobile home Number of Stairs To Enter/Railing? has 1 step to enter Home Environment Standard Height Toilet Walk in Shower Home Equipment Four Wheel Walker Straight Cane Shower Seat with Backrest Grab Bars In Shower M2 PT-IP Current Condition Start: 03/19/18 09:28 Freq: NEEDED Status: Active Protocol: Document 03/19/18 08:40 AB (Rec: 03/19/18 09:39 AB [id number]) Physical Therapy Current Condition Current Condition Evaluation Date 03/19/18 Treatment Diagnosis COPD; generalized weakness Onset Date 03/18/18 M3 PT-IP Subjective Start: 03/19/18 09:28 Freq: NEEDED Status: Active Protocol: Document 03/19/18 08:40 AB (Rec: 03/19/18 09:39 AB [id number]) Subjective Physical Therapy Visit Type Type Initial Evaluation Visit Start Time 08:40 Visit Stop Time 09:12 Total Visit Minutes 32 Number of DENTAL EQUIPMENT INSTALLER AND SERVICER Visits 0 Physical Therapy Visit Comments Patient Comments pt agreeable to do PT Therapy Pain Assessment Pain When Pain Assessed At Rest Pain Present Pain Present Pain Reported Location Right Upper Chest Scale Used pain scale not stated; per pt: due to lung CA M4 PT-IP Mobility and Gait Start: 03/19/18 09:28 Freq: NEEDED Status: Active Protocol: Document 03/19/18 08:40 AB (Rec: 03/19/18 09:39 AB [id number]) PT-Bed Mobility Assessment Supine to Sit Supine to Sit Independent Sit to Supine Sit to Supine Independent PT-Transfer Assessment Sit to and From Stand Sit to and from Stand Standby Assistance Equipment Transfer Assistive Device Gait Belt Orthotic/Prosthetic Devices or Brace: Yes Transfers Transfer Destination Toilet Transfer Technique pt ambulated to the toilet without AD Transfer Ability Level of Assist Standby Assistance Comments Mobility Comments pt ambulated to the toilet without AD SBA ~ 12 ft. ambulated out of the toilet without AD to the sink SBA ~ 12 ft and was able to maintain standing SBA while doing handwashing. pt refused further ambulation and stated that he is tired but agreed to do up/down step stool. Gait Assessment Gait Gait Assistance Required: Standby Assistance Distance (Feet) 12 Able to Maintain Weight Bearing Status Yes During Gait Assistive Devices Assistive Device Gait Belt Factors Limiting Gait Function Factors Limiting Gait Function Decreased Activity Tolerance Comments Gait Comments ambulated in room without AD SBA Stair Climbing Assessment Evaluation Level of Assist On Stairs Minimal Assistance Devices Stair Climbing Assistive Devices None Technique/Endurance Stair Climbing Direction Ascend and Descend Stair Climbing Technique Step to Step Number of Steps Climbed 1 Query Text: Stair Climbing Set # Repetitions (reps) 2 PT-Balance Assessment Sitting Balance and Reactions Static Sitting Balance Ability Good Dynamic Sitting Balance Ability Good Standing Balance and Reactions Static Standing Balance Ability Good Dynamic Standing Balance Ability Fair Device Used without AD M5 PT-IP Objective Assessments Start: 03/19/18 09:28 Freq: NEEDED Status: Active Protocol: Document 03/19/18 08:40 AB (Rec: 03/19/18 09:39 AB [id number]) Orientation Orientation/Cognition Level of Alertness Alert Orientation Name Age Birthday Month Date Year Day of Week Place Situation Gross Range of Motion Lower Extremity ROM Assessment Within Functional Limits Strength Lower Extremity Strength Assessment Bilaterally Impaired Hip 4-/5 Knee 4-/5 Ankle 4-/5 Sensation Assessment Sensation Gross Sensation WNL M6 PT-IP Treatment Start: 03/19/18 09:28 Freq: NEEDED Status: Active Protocol: Document 03/19/18 08:40 AB (Rec: 03/19/18 09:39 AB [id number]) Physical Therapy Treatment Education Education Provided Safety M7 PT-IP Assessment and Plan Start: 03/19/18 09:28 Freq: NEEDED Status: Active Protocol: Document 03/19/18 08:40 AB (Rec: 03/19/18 09:39 AB [id number]) PT Summary Assessment and Plan Potential Rehabilitation Potential Good Status of Condition at Evaluation Stable Summary Impairments Pain ROM Strength Balance Bed Mobility Transfers Gait Activity Tolerance Assessment Summary pt requiring one person assist with mobility and plans to go home with spouse and a caregiver to assist him. pt presents with decrearse activity tolerance affecting mobility. pt may go home when medically stable. Goals Transfer Goal Independent Gait Goal Independent Gait Distance 200 Other Goals up/down 1 steps SBA Days to Meet Goals 3 Frequency of Treatment Frequency Of Treatment Once a Day Treatment Plan Physical Therapy Treatment Plan Transfer Training Gait Training Therapeutic Exercise Balance Retraining Discharge Planning Neuromuscular Re-ed Coordination Retraining Manual Therapy Other Recommendations and Next Treatment ambulation, stair climbing Focus Recommendations To Nursing Amount of Assist Needed Standby Assistance Discharge Recommendations PT Discharge Recommendations Home with Assistance
[2018-03-19] MEDS: LEVOTHYROXINE 137 MCG TABLET PO (09:12)
[2018-03-19] MEDS: CITALOPRAM 20 MG TABLET PO (09:12)
[2018-03-19] MEDS: ENOXAPARIN 40 MG/0.4 ML SYRINGE SUBCUT (09:12)
[2018-03-19] MEDS: predniSONE 20 MG TABLET 40 MG PO (09:13)
[2018-03-19] MEDS: NICOTINE 7 MG PATCH TOP (09:13)
--- NOTE | 2018-03-19 10:20 | PM.PN.1 ---
Subjective Date Patient Seen: 03/19/18 Time Patient Seen: 07:20 Interval history: STILL WITH FEELING OF WEAKNESS AND FATIGUE NO FEVER OR CHILLS OVERNIGHT REPORT ONE BM NO CHEST PAIN Exam Vital Signs (past 8 hours): - 03/19/18 03:52 03/19/18 04:04 03/19/18 06:19 Temperature 98.4 F Pulse Rate 79 65 Respiratory Rate 19 16 Blood Pressure 106/72 Pulse Oximetry 95 94 98 03/19/18 08:00 Temperature 98.3 F Pulse Rate 79 Respiratory Rate 16 Blood Pressure 118/61 Pulse Oximetry 98 Oxygen Delivery Method Room Air Narrative Exam Narrative: NO ACUTE DISTRESS. PATIENT IS ALERT ORIENTED X3. THIN, CACHEXIA VITAL SIGNS STABLE HEAD ATRAUMATIC NORMOCEPHALIC NECK : SUPPLE WITHOUT ADENOPATHY NO CAROTID BRUITS EYE: EOMI, PERRLA, NORMAL CONJUNCTIVA; NO JAUNDICE CHEST: REGULAR RATE. NO RUBS. PMI IS NON DISPLACED. NO MURMURS; NORMAL S1-S2 PULMONARY: DECREASED BS OVER THE BASES. MILD BIBASILAR CRACKLES NOTED; NO INCREASED DULLNESS TO PERCUSSION; MILD WHEEZING THROUGHOUT ABDOMEN: SOFT. NONTENDER. NONDISTENDED. BOWEL SOUNDS ARE PRESENT IN ALL 4 QUADRANTS. NO MASS. EXTREMITIES: NO EDEMA.. NO CYANOSIS CLUBBING NOTED. NEURO: CRANIAL NERVES 2-12 GROSSLY INTACT. NO FOCAL NEUROLOGICAL DEFICIT NOTED. MSK: NORMAL RANGE OF MOTION FOR AGE. NO JOINT EFFUSION. SKIN: NORMAL FOR ETHNICITY; NO ECCHYMOSIS. NO LESION. GOOD TURGOR.; NO RASHES : NORMAL EXTERNAL GENITALIA. PSYCH : APPROPRIATE MOOD AND AFFECT. ALERT AWAKE ORIENTED X3 Objective Labs Result Diagrams: 03/19/18 06:07 03/19/18 06:07 Labs: Laboratory Results - last 24 hr 03/18/18 03/18/18 03/18/18 14:30 14:30 14:30 WBC 16.9 H RBC 4.65 Hgb 12.9 L Hct 39.7 L MCV 85.4 MCH 27.8 MCHC 32.5 RDW 16.3 H Plt Count 383 Neut % (Auto) 78.6 H Lymph % (Auto) 13.4 L [place] % (Auto) 7.3 Eos % (Auto) 0.1 L Baso % (Auto) 0.6 Neut # (Auto) 72754 H PT 13.1 H INR 1.1 Sodium 135 L Potassium 4.0 Chloride 94 L Carbon Dioxide 29 BUN 15 Creatinine 0.80 Estimated GFR > 60.0 BUN/Creatinine Ratio 18.8 Glucose 109 Lactate Calcium 9.0 Phosphorus 3.6 Magnesium 1.6 Total Bilirubin 0.9 AST 45 ALT 60 Alkaline Phosphatase 96 C-Reactive Protein Total Protein 7.1 Albumin 3.7 Globulin 3.4 Albumin/Globulin Ratio 1.1 Lipase 53 Procalcitonin TSH Urine Color Urine Appearance Urine pH Ur Specific [place] Urine Protein Urine Glucose (UA) Urine Ketones Urine Occult Blood Urine Nitrate Urine Bilirubin Urine Urobilinogen Ur Leukocyte Esterase Urine RBC Urine WBC Urine Bacteria Ur Culture Indicated? Micro UA Comment 03/18/18 03/18/18 03/18/18 14:30 14:30 19:55 WBC RBC Hgb Hct MCV MCH MCHC RDW Plt Count Neut % (Auto) Lymph % (Auto) [place] % (Auto) Eos % (Auto) Baso % (Auto) Neut # (Auto) PT INR Sodium Potassium Chloride Carbon Dioxide BUN Creatinine Estimated GFR BUN/Creatinine Ratio Glucose Lactate Calcium Phosphorus Magnesium Total Bilirubin AST ALT Alkaline Phosphatase C-Reactive Protein 3.9 H Total Protein Albumin Globulin Albumin/Globulin Ratio Lipase Procalcitonin 0.16 TSH Urine Color Yellow Urine Appearance Clear Urine pH 8.0 Ur Specific [place] 1.010 Urine Protein Negative Urine Glucose (UA) Negative Urine Ketones Negative Urine Occult Blood Negative Urine Nitrate Negative Urine Bilirubin Negative Urine Urobilinogen 0.2 Ur Leukocyte Esterase Negative Urine RBC None seen Urine WBC None seen Urine Bacteria None seen Ur Culture Indicated? Cult not indicated Micro UA Comment Microscopic normal 03/18/18 03/18/18 03/19/18 23:25 Unknown 06:07 WBC 9.6 RBC 4.09 L Hgb 11.8 L Hct 34.4 L MCV 84.2 MCH 29.0 MCHC 34.4 RDW 16.2 H Plt Count 306 Neut % (Auto) 74.4 Lymph % (Auto) 15.7 L [place] % (Auto) 8.7 Eos % (Auto) 0.8 L Baso % (Auto) 0.4 Neut # (Auto) 7200 H PT INR Sodium Potassium Chloride Carbon Dioxide BUN Creatinine Estimated GFR BUN/Creatinine Ratio Glucose Lactate 1.1 Calcium Phosphorus Magnesium Total Bilirubin AST ALT Alkaline Phosphatase C-Reactive Protein Total Protein Albumin Globulin Albumin/Globulin Ratio Lipase Procalcitonin TSH 1.57 Urine Color Urine Appearance Urine pH Ur Specific [place] Urine Protein Urine Glucose (UA) Urine Ketones Urine Occult Blood Urine Nitrate Urine Bilirubin Urine Urobilinogen Ur Leukocyte Esterase Urine RBC Urine WBC Urine Bacteria Ur Culture Indicated? Micro UA Comment 03/19/18 06:07 WBC RBC Hgb Hct MCV MCH MCHC RDW Plt Count Neut % (Auto) Lymph % (Auto) [place] % (Auto) Eos % (Auto) Baso % (Auto) Neut # (Auto) PT INR Sodium 139 Potassium 4.1 Chloride 100 Carbon Dioxide 29 BUN 13 Creatinine 0.70 Estimated GFR > 60.0 BUN/Creatinine Ratio 18.6 Glucose 109 Lactate Calcium 8.7 Phosphorus Magnesium Total Bilirubin 0.7 AST 35 ALT 45 Alkaline Phosphatase 85 C-Reactive Protein Total Protein 6.2 L Albumin 3.1 L Globulin 3.1 Albumin/Globulin Ratio 1.0 Lipase Procalcitonin TSH Urine Color Urine Appearance Urine pH Ur Specific [place] Urine Protein Urine Glucose (UA) Urine Ketones Urine Occult Blood Urine Nitrate Urine Bilirubin Urine Urobilinogen Ur Leukocyte Esterase Urine RBC Urine WBC Urine Bacteria Ur Culture Indicated? Micro UA Comment Assessment & Plan Plan: Assessment/Plan Narrative: IMPRESSION AND PLAN ACUTE ON CHRONIC RESP FAILURE; LIKELY DUE TO COPD AND LUNG LESIONS; IMPROVE CLINICALLY POS COPD EXACERBATION; WILL CONTINUE WITH STEROIDS PO ; IV ABX ADDED; ALSO ON DUONEBS; INCENTIVE SPIROMETRY; REPEAT CHEST FILMS INDICATED POSS CONSTIPATION/ OBSTIPATION ; WAS LIKELY THE CAUSE OF HIS ABD PAIN; LIKELY RELATED TO OPIOIDS ; STARTED ON SENNA/MIRALAX; HIGH FIBER DIET ORDERED; KEEP WELL HYDRATED; ENCOURAGE AMB MAX; CONSIDER NEWER AGENT SUCH MOV[place]IK OUTPATIENT LUNG CA PER HX; ON TX WITH HEMONC OUTPATIENT TOBACCO ABUSE/NICOTINE ADDICTION; NICOTINE PATCH; COUNSELING GIVEN LEUKCYTOSIS; RESOLVED; WILL CONT ON ABX FOR NOW; DAILY CBC TO FOLLOW HYPONATREMIA; RESOLVED GENERALIZED WEAKNESS; MULTIFACTORIAL; PT/OT ORDERED; CONSIDER SNF ON DISPOSITION; OOB/ IN HAIR WITH EACH MEAL; AMB TID WITH NURSING/PT ELECTROLYTES IMBALANCE; REPLACE INDICATED; REPEAT LABS SERIALLY TO FOLLOW HX OF PATHOLOGICAL RIB FX; PAIN MANAGEMENT WITH ORAL MEDS SEVERE PROTEIN DEF MALNUTRITION; WILL START ON ENSURE WITH EACH MEAL; MEGACE; ENCOURAGE AMB ; CONSULT DIETITIAN INDICATED HYPOTHYROIDISM; HOME MEDS DC PER CLINICAL COURSE Quality VTE Deep Vein Thrombosis/Pulmonary Embolism Present on Admission: No
--- NOTE | 2018-03-19 10:37 | P.PN_ITS ---
Subjective Date Patient Seen: 03/19/18 Time Patient Seen: 07:20 Interval history: STILL WITH FEELING OF WEAKNESS AND FATIGUE NO FEVER OR CHILLS OVERNIGHT REPORT ONE BM NO CHEST PAIN Exam Vital Signs (past 8 hours): - 03/19/18 03:52 03/19/18 04:04 03/19/18 06:19 Temperature 98.4 F Pulse Rate 79 65 Respiratory Rate 19 16 Blood Pressure 106/72 Pulse Oximetry 95 94 98 03/19/18 08:00 Temperature 98.3 F Pulse Rate 79 Respiratory Rate 16 Blood Pressure 118/61 Pulse Oximetry 98 Oxygen Delivery Method Room Air Narrative Exam Narrative: NO ACUTE DISTRESS. PATIENT IS ALERT ORIENTED X3. THIN, CACHEXIA VITAL SIGNS STABLE HEAD ATRAUMATIC NORMOCEPHALIC NECK : SUPPLE WITHOUT ADENOPATHY NO CAROTID BRUITS EYE: EOMI, PERRLA, NORMAL CONJUNCTIVA; NO JAUNDICE CHEST: REGULAR RATE. NO RUBS. PMI IS NON DISPLACED. NO MURMURS; NORMAL S1- S2 PULMONARY: DECREASED BS OVER THE BASES. MILD BIBASILAR CRACKLES NOTED; NO INCREASED DULLNESS TO PERCUSSION; MILD WHEEZING THROUGHOUT ABDOMEN: SOFT. NONTENDER. NONDISTENDED. BOWEL SOUNDS ARE PRESENT IN ALL 4 QUADRANTS. NO MASS. EXTREMITIES: NO EDEMA.. NO CYANOSIS CLUBBING NOTED. NEURO: CRANIAL NERVES 2-12 GROSSLY INTACT. NO FOCAL NEUROLOGICAL DEFICIT NOTED. MSK: NORMAL RANGE OF MOTION FOR AGE. NO JOINT EFFUSION. SKIN: NORMAL FOR ETHNICITY; NO ECCHYMOSIS. NO LESION. GOOD TURGOR.; NO RASHES : NORMAL EXTERNAL GENITALIA. PSYCH : APPROPRIATE MOOD AND AFFECT. ALERT AWAKE ORIENTED X3 Objective Labs Result Diagrams: 03/19/18 06:07 03/19/18 06:07 Labs: Laboratory Results - last 24 hr 03/18/18 03/18/18 03/18/18 14:30 14:30 14:30 WBC 16.9 H RBC 4.65 Hgb 12.9 L Hct 39.7 L MCV 85.4 MCH 27.8 MCHC 32.5 RDW 16.3 H Plt Count 383 Neut % (Auto) 78.6 H Lymph % (Auto) 13.4 L [place] % (Auto) 7.3 Eos % (Auto) 0.1 L Baso % (Auto) 0.6 Neut # (Auto) 80612 H PT 13.1 H INR 1.1 Sodium 135 L Potassium 4.0 Chloride 94 L Carbon Dioxide 29 BUN 15 Creatinine 0.80 Estimated GFR > 60.0 BUN/Creatinine Ratio 18.8 Glucose 109 Lactate Calcium 9.0 Phosphorus 3.6 Magnesium 1.6 Total Bilirubin 0.9 AST 45 ALT 60 Alkaline Phosphatase 96 C-Reactive Protein Total Protein 7.1 Albumin 3.7 Globulin 3.4 Albumin/Globulin Ratio 1.1 Lipase 53 Procalcitonin TSH Urine Color Urine Appearance Urine pH Ur Specific [place] Urine Protein Urine Glucose (UA) Urine Ketones Urine Occult Blood Urine Nitrate Urine Bilirubin Urine Urobilinogen Ur Leukocyte Esterase Urine RBC Urine WBC Urine Bacteria Ur Culture Indicated? Micro UA Comment 03/18/18 03/18/18 03/18/18 14:30 14:30 19:55 WBC RBC Hgb Hct MCV MCH MCHC RDW Plt Count Neut % (Auto) Lymph % (Auto) [place] % (Auto) Eos % (Auto) Baso % (Auto) Neut # (Auto) PT INR Sodium Potassium Chloride Carbon Dioxide BUN Creatinine Estimated GFR BUN/Creatinine Ratio Glucose Lactate Calcium Phosphorus Magnesium Total Bilirubin AST ALT Alkaline Phosphatase C-Reactive Protein 3.9 H Total Protein Albumin Globulin Albumin/Globulin Ratio Lipase Procalcitonin 0.16 TSH Urine Color Yellow Urine Appearance Clear Urine pH 8.0 Ur Specific [place] 1.010 Urine Protein Negative Urine Glucose (UA) Negative Urine Ketones Negative Urine Occult Blood Negative Urine Nitrate Negative Urine Bilirubin Negative Urine Urobilinogen 0.2 Ur Leukocyte Esterase Negative Urine RBC None seen Urine WBC None seen Urine Bacteria None seen Ur Culture Indicated? Cult not indicated Micro UA Comment Microscopic normal 03/18/18 03/18/18 03/19/18 23:25 Unknown 06:07 WBC 9.6 RBC 4.09 L Hgb 11.8 L Hct 34.4 L MCV 84.2 MCH 29.0 MCHC 34.4 RDW 16.2 H Plt Count 306 Neut % (Auto) 74.4 Lymph % (Auto) 15.7 L [place] % (Auto) 8.7 Eos % (Auto) 0.8 L Baso % (Auto) 0.4 Neut # (Auto) 7200 H PT INR Sodium Potassium Chloride Carbon Dioxide BUN Creatinine Estimated GFR BUN/Creatinine Ratio Glucose Lactate 1.1 Calcium Phosphorus Magnesium Total Bilirubin AST ALT Alkaline Phosphatase C-Reactive Protein Total Protein Albumin Globulin Albumin/Globulin Ratio Lipase Procalcitonin TSH 1.57 Urine Color Urine Appearance Urine pH Ur Specific [place] Urine Protein Urine Glucose (UA) Urine Ketones Urine Occult Blood Urine Nitrate Urine Bilirubin Urine Urobilinogen Ur Leukocyte Esterase Urine RBC Urine WBC Urine Bacteria Ur Culture Indicated? Micro UA Comment 03/19/18 06:07 WBC RBC Hgb Hct MCV MCH MCHC RDW Plt Count Neut % (Auto) Lymph % (Auto) [place] % (Auto) Eos % (Auto) Baso % (Auto) Neut # (Auto) PT INR Sodium 139 Potassium 4.1 Chloride 100 Carbon Dioxide 29 BUN 13 Creatinine 0.70 Estimated GFR > 60.0 BUN/Creatinine Ratio 18.6 Glucose 109 Lactate Calcium 8.7 Phosphorus Magnesium Total Bilirubin 0.7 AST 35 ALT 45 Alkaline Phosphatase 85 C-Reactive Protein Total Protein 6.2 L Albumin 3.1 L Globulin 3.1 Albumin/Globulin Ratio 1.0 Lipase Procalcitonin TSH Urine Color Urine Appearance Urine pH Ur Specific [place] Urine Protein Urine Glucose (UA) Urine Ketones Urine Occult Blood Urine Nitrate Urine Bilirubin Urine Urobilinogen Ur Leukocyte Esterase Urine RBC Urine WBC Urine Bacteria Ur Culture Indicated? Micro UA Comment Assessment & Plan Plan: Assessment/Plan Narrative: IMPRESSION AND PLAN ACUTE ON CHRONIC RESP FAILURE; LIKELY DUE TO COPD AND LUNG LESIONS; IMPROVE CLINICALLY POS COPD EXACERBATION; WILL CONTINUE WITH STEROIDS PO ; IV ABX ADDED; ALSO ON DUONEBS; INCENTIVE SPIROMETRY; REPEAT CHEST FILMS INDICATED POSS CONSTIPATION/ OBSTIPATION ; WAS LIKELY THE CAUSE OF HIS ABD PAIN ; LIKELY RELATED TO OPIOIDS ; STARTED ON SENNA/MIRALAX; HIGH FIBER DIET ORDERED ; KEEP WELL HYDRATED; ENCOURAGE AMB MAX; CONSIDER NEWER AGENT SUCH [place] OUTPATIENT LUNG CA PER HX; ON TX WITH HEMONC OUTPATIENT TOBACCO ABUSE/NICOTINE ADDICTION; NICOTINE PATCH; COUNSELING GIVEN LEUKCYTOSIS; RESOLVED; WILL CONT ON ABX FOR NOW; DAILY CBC TO FOLLOW HYPONATREMIA; RESOLVED GENERALIZED WEAKNESS; MULTIFACTORIAL; PT/OT ORDERED; CONSIDER SNF ON DISPOSITION ; OOB/ IN HAIR WITH EACH MEAL; AMB TID WITH NURSING/PT ELECTROLYTES IMBALANCE; REPLACE INDICATED; REPEAT LABS SERIALLY TO FOLLOW HX OF PATHOLOGICAL RIB FX; PAIN MANAGEMENT WITH ORAL MEDS SEVERE PROTEIN DEF MALNUTRITION; WILL START ON ENSURE WITH EACH MEAL; MEGACE; ENCOURAGE AMB ; CONSULT DIETITIAN INDICATED HYPOTHYROIDISM; HOME MEDS DC PER CLINICAL COURSE Quality VTE Deep Vein Thrombosis/Pulmonary Embolism Present on Admission: No
[2018-03-19] MEDS: SENNOSIDES 8.6 MG TABLET 17.2 MG PO ×2 (11:44→20:16)
[2018-03-19] MEDS: POLYETHYLENE GLYCOL 3350 17 GM POWD.PACK PO ×2 (11:44→20:16)
[2018-03-19] MEDS: NICOTINE 21 MG PATCH TOP (11:45)
[2018-03-19] MEDS: MEGESTROL SUSP 400 MG/10 ML UDC PO (11:46)
[2018-03-19] MEDS: TRAMADOL 50 MG TABLET PO ×2 (11:52→20:17)
[2018-03-19] MEDS: AZITHROMYCIN 500 MG in DEXTROSE 5% IN WATER 250 ML IV (11:56)
[2018-03-19] MEDS: CEFTRIAXONE 1 GM/50 ML FROZ.PIGGY IV (13:53)
--- NOTE | 2018-03-19 16:46 | CM.DANOTE ---
Discharge Planning/Care Management DCP: assessment: Case received and met briefly with pt this mornin. Introduced self and role. Rn Roxy was in room and then the hospitalist arrived to see pt so agreed to check in again prn for d/c planning issues and options. Pt is a 63 year old male who admitted last evening to care of hospitalist team. He is under oncology care. Lakisha Cabral is his DPOA: [phone]. Discussed case in Team Rounds with Dr. Bonilla. PT was ordered. P: follow prn as per above. PT Babs has ok'd pt for up with SBA and nursing without AD. CM Discharge Assessment Start: 03/19/18 16:43 Freq: Status: Active Protocol: Document 03/19/18 16:44 ITV (Rec: 03/19/18 16:46 [email or web address] [id number]) Discharge Planning Assessment History Provided By Patient Medical Record Prior Living Arrangements Mobile home Independent with ADL's basically independent within limitations of illness Is patient alert and oriented? Yes DME Already Rented / Owned FWW / Walker Cane Comment 2 canes or 4ww prn Whiteboard Updated in Patient Room with Yes name and ext. # of Office Nurse Review Status In Process Next Review Type Continued Stay Review
[2018-03-20] VITALS (7 sets, daily range): BP systolic 81–131; BP diastolic 48–77; PULSE 64–81; RESP 16–20; TEMP 36.6–36.8; O2SAT 96–100
[2018-03-20] MEDS: ALBUTEROL/IPRATROPIUM 3 ML AMPUL INH ×2 (05:37→11:17)
[2018-03-20] MEDS: OXYCODONE IR 10 MG TABLET PO ×2 (06:19→10:11)
[2018-03-20] MEDS: LEVOTHYROXINE 137 MCG TABLET PO (06:19)
[2018-03-20] MEDS: PANTOPRAZOLE 20 MG TABLET PO (06:19)
[2018-03-20 08:00] LABS: Add Manual Diff / Slide Review NO; Basophils Percent Auto 0.3 % (0-2); Eosinophils Percent Auto 0.2 % (2-4); Hematocrit 34.6 % (41-53); Hemoglobin 11.4 g/dL (13.5-17.5); Lymphocytes Percent Auto 12.5 % (25-40); Mean Corpuscular HGB Conc 33.1 % (30-36); Mean Corpuscular Hemoglobin 28.1 PG (26-34); Mean Corpuscular Volume 84.9 fL (80-100); Monocytes Percent Auto 6.3 % (3-14); Neutrophils Absolute Auto 9700 /uL (1500-7000); Neutrophils Percent Auto 80.7 % (50-75); Platelet Count 252 X10^3/uL (150-400); Red Blood Cell Count 4.07 X10^6/uL (4.5-5.9); Red Cell Distribution Width 16.1 % (11.6-14.8); White Blood Cell Count 12.1 X10^3/uL (4.5-11.0)
--- NOTE | 2018-03-20 10:01 | CM.DPC ---
DCP: continued: case discussed in Team Rounds just now. Dr. Bonilla has ok'd pt for d/c home today with he will continue his oncology care.
[2018-03-20] MEDS: TRAMADOL 50 MG TABLET PO (10:11)
[2018-03-20] MEDS: POLYETHYLENE GLYCOL 3350 17 GM POWD.PACK PO (10:12)
[2018-03-20] MEDS: CITALOPRAM 20 MG TABLET PO (10:12)
[2018-03-20] MEDS: NICOTINE 21 MG PATCH TOP (10:12)
[2018-03-20] MEDS: ENOXAPARIN 40 MG/0.4 ML SYRINGE SUBCUT (10:12)
[2018-03-20] MEDS: MEGESTROL SUSP 400 MG/10 ML UDC PO (10:12)
[2018-03-20] MEDS: SENNOSIDES 8.6 MG TABLET 17.2 MG PO (10:12)
[2018-03-20] MEDS: predniSONE 20 MG TABLET 40 MG PO (10:12)
--- NOTE | 2018-03-20 13:03 | CM.DANOTE ---
03/20 1305; pt alert and oriented, participant in care, ex- at bedside also participating in discharge instructions. New medications were given to patient, and reviewed by staff. Questions were answered to satisfaction. IV and Tele removed, belongings were gathered and distributed to pt. Accompanied via wheelchair to ED entrance were pt was assisted into private vehicle.
--- NOTE | 2018-03-20 13:53 | P.DS_ITS ---
History of Present Illness Date Patient Seen: 03/20/18 Time Patient Seen: 10:47 Chief complaint: stomach hurts bad, breathing is not well, cancer Narrative: Chief complaint: stomach hurts bad, breathing is not well, cancer Narrative: PMH: Metastatic lung cancer (dx 2016) h/o of chemo and radiation therapy, COPD, DVT, immune related hypothyroidism, tobacco dependence, CAD (h/o stenting), stenosis of cervical spine (s/p cervical spine surgery), and hiatal hernia. CC: My stomach hurts. I have lung cancer. I had hard time breathing. Shortness of breath Onset, since January 2018. He is known to have been hospitalized at [facility] 01/13 through 01/16 for post obstructive pneumonia (tx w/ Zosyn / Augmentin). Patient was being treated w/ nivolumab (duration 2 yrs, 11/2015 until 02/23/2018), he was noted to have developed progressive worsening dyspnea , and his treatment was placed on hold out of concern for immune mediated pneumonitis. At that time CT imaging revealed new metastasis to the bone (right rib cage / pathologic fractures). Associated sx include: CP, cough with purulence (yellow, improved from 1 week ago), decreased energy / fatigue, decreased appetite, dizziness and lightheadedness. CP intermittent, characterized as a sharp / ache / constrictive, magnitude does not exceed 3/10 w /o associated arm, neck, and jaw pain / dyspnea / palpitations. Not O2 dependent. No subjective fever or chills. However, does note experiencing sensation of being hot or cold frequently w/o overt diaphoresis or shivering. On 03/09 he was seen in the ED and at that time prescribed levofloxacin (now completed) and a course of a steroid taper. Patient does not see a significant improvement nor decline in his symptoms with aforementioned treatment. However , he does note slight decrease in phlegm production. Continues to smoke, 3-4 cigarettes daily. CXR, 03/18/2018, unremarkable for acute cardiopulmonary findings. CT of chest on 03/09/2018 revealed a cavitary mass with surrounding compressed lung involving the right lung apex. Narrowing of the right upper lobe bronchus noted. Emphysematous changes. Abdominal Pain Onset is acute, initially noted 2 days ago. Localized to the right lower and left lower quadrants of the abdomen. Does not radiate to the flank or back. No nausea, vomiting, or diarrhea. Last BM 5 days ago. Reports diminished appetite and minimal food consumption. Denies abdominal distention or dyspepsia. He does use opioids routinely. Not sure if sx exacerbated w/ food consumption. Symptoms are relieved with defecation. Passing flatus. Denies melena and hematochezia. No suprapubic discomfort. No dysuria or hematuria. Notes hesitancy. Discharge Providers Date of admission: 03/18/18 17:31 Consults: 03/18/18 19:21 Consult to Dietitian, Adult Routine Comment: Reason For Exam: No teeth, poor appetite x 2 days. Cancer patient. 03/18/18 22:29 Consult to Dietitian, Adult Routine Comment: Reason For Exam: protein calorie malnutrition, BMI 17.8, h/o ca 03/18/18 22:32 Consult to Respiratory Therapy Evaluate & Treat Comment: bronchodilators prn, PEP therapy - perform w/ pt Physician Instructions: Evaluate and treat 03/18/18 22:33 Consult to Physical Therapy Evaluate & Treat Comment: debility, deconditioining, weakness Physician Instructions: Evaluate and Treat Discharge provider: Donnell Pool, Discharge Date: 03/20/18 Summary Discharge Diagnosis: POSS ACUTE COPD EAXERBATION; MILD ; RESOLVED POSS MILD ACUTE ON CHRONIC RESP FAILLURE; RESOLVED CONSTIPATION/OBSTIPATION; RESOLVED [place] CA PER HX TOBACCO ABUSE/NICOTINE ADDICTION REACTIVE LEUKOCYTOSIS PROTEIN DEF MALNUTRITION PHYSICAL DECONDITIONING MEDICAL NON COMPLIANCE Hospital Course: - PATIENT ADMITTED WITH SOB AND ABD PAIN - HIS SOB WAS RELATED ACUTE EXACERBATION OF COPD PATIENT CONT TO USE TOBACCO - HE WAS TREATED AND DC ON STEROID TAPER DOSE WELL ABX AND DUONEB - PATIENT DID NOT MEET CRITERIA FOR HOME OXYGEN - PATIENT ALSO TREATED FOR SEVERE CONSTIPATION WHICH IS LIKELY OPIOID RELATED - HE WAS DC ON MIRALAX WELL SENNA; COULD BE GIVEN OTHER AGENT BY PRIMARY CARE IF SO WARRANTED - PATIENT GIVEN EXTENSIVE COUNSELING REGARDING TOBACCO ABUSE AND NICOTINE ADDICTION Status at Discharge Cognitive/behavioral status at discharge: STABLE TO HOME Functional status at discharge: independent ambulation Overall status at discharge: patient is back to baseline Time Spent with Patient Greater than 30 minutes Time spent discussing smoking cessation with patient: more than 10 minutes Exam Vital Signs (past 8 hours): - 03/20/18 08:00 12/16/18 11:19 Temperature 98.0 F Pulse Rate 81 66 Respiratory Rate 20 16 Blood Pressure 81/48 L Pulse Oximetry 96 97 Fraction of Inspired Oxygen 21 Oxygen Delivery Method Room Air Oxygen Flow Rate 0 Narrative Exam Narrative: NO ACUTE DISTRESS. PATIENT IS ALERT ORIENTED X3. THIN, CACHEXIA VITAL SIGNS STABLE HEAD ATRAUMATIC NORMOCEPHALIC NECK : SUPPLE WITHOUT ADENOPATHY NO CAROTID BRUITS EYE: EOMI, PERRLA, NORMAL CONJUNCTIVA; NO JAUNDICE CHEST: REGULAR RATE. NO RUBS. PMI IS NON DISPLACED. NO MURMURS; NORMAL S1- S2 PULMONARY: DECREASED BS OVER THE BASES. BIBASILAR CRACKLES NOTED; NO INCREASED DULLNESS TO PERCUSSION; WHEEZING THROUGHOUT ABDOMEN: SOFT. NONTENDER. NONDISTENDED. BOWEL SOUNDS ARE PRESENT IN ALL 4 QUADRANTS. NO MASS. EXTREMITIES: NO EDEMA.. NO CYANOSIS CLUBBING NOTED. NEURO: CRANIAL NERVES 2-12 GROSSLY INTACT. NO FOCAL NEUROLOGICAL DEFICIT NOTED. MSK: NORMAL RANGE OF MOTION FOR AGE. NO JOINT EFFUSION. SKIN: NORMAL FOR ETHNICITY; NO ECCHYMOSIS. NO LESION. GOOD TURGOR.; NO RASHES : NORMAL EXTERNAL GENITALIA. PSYCH : APPROPRIATE MOOD AND AFFECT. ALERT AWAKE ORIENTED X3 Objective Labs Result Diagrams: 03/20/18 07:38 03/19/18 06:07 Labs: Laboratory Results - last 24 hr 03/20/18 07:38 WBC 12.1 H RBC 4.07 L Hgb 11.4 L Hct 34.6 L MCV 84.9 MCH 28.1 MCHC 33.1 RDW 16.1 H Plt Count 252 Neut % (Auto) 80.7 H Lymph % (Auto) 12.5 L [place] % (Auto) 6.3 Eos % (Auto) 0.2 L Baso % (Auto) 0.3 Neut # (Auto) 9700 H Discharge Plan Discharge Plan Patient Disposition: Home Discharge comment: dc home today act as [place] high calorie reg diet with 2 bottles of ensure plus in between meals f/u with pcp 2-7 days Discharge Med Rec/Prescriptions Prescriptions: New sennosides [senna] 8.6 mg Tablet 17.2 mg PO BEDTIME 60 Days RF: 0 ipratropium-albuterol 0.5 mg-3 mg(2.5 mg base)/3 mL Solution For Nebulization 3 ml INH Q4HR PRN (Reason: sob/wheezing) Qty: 40 RF: 0 polyethylene glycol 3350 17 gram Powder In Packet 17 gm PO BID 60 Days RF: 0 tramadol 50 mg Tablet 50 mg PO BID Qty: 40 RF: 0 megestrol 400 mg/10 mL (10 mL) Suspension 400 mg PO DAILY 60 Days RF: 0 azithromycin 250 mg tablet 500 mg PO DAILY 5 Days RF: 0 amoxicillin-pot clavulanate [Augmentin] 875-125 mg tablet 1 tab PO Q12H 10 Days Qty: 20 RF: 0 prednisone 10 mg tablet 10 mg PO DIRECTED Qty: 40 RF: 0 famotidine [Pepcid] 20 mg tablet 20 mg PO BID 42 Days Qty: 84 RF: 0 sucralfate [Carafate] 1 gram tablet 1 gram PO QACHS Qty: 180 RF: 0 Continue [DISABLED PARKING ] 1 ea X1 Qty: 1 RF: 0 acetaminophen 650 MG tablet extended release 650 mg PO Q8H Qty: 30 RF: 0 prednisone 10 mg tablet 10 mg PO DAILY Qty: 30 RF: 0 levofloxacin [Levaquin] 750 mg tablet 750 mg PO DAILY Qty: 7 RF: 0 citalopram [Celexa] 20 mg Tablet 20 mg PO DAILY Qty: 90 RF: 1 pregabalin [Lyrica] 50 mg Capsule 50 mg PO TID Qty: 90 RF: 1 lactulose [Enulose] 10 gram/15 mL Solution 20 g PO TID PRN (Reason: constipation, severe) Qty: 120 RF: 1 levothyroxine 137 mcg Tablet 137 mcg PO DAILY Qty: 60 RF: 0 hydroxyzine HCl 25 MG tablet 25 - 50 mg PO Q6H PRN (Reason: Itching) Qty: 60 RF: 0 hydrocodone-acetaminophen 10-325 mg Tablet 1 tab PO Q4-6H PRN (Reason: pain with lung cancer) Qty: 90 RF: 0 oxycodone 10 mg Tablet 10 mg PO Q4-6H PRN (Reason: cancer pain) Qty: 60 RF: 0 albuterol sulfate [ProAir HFA] 90 MCG/PUFF HFA aerosol inhaler 1 puff INH Q6H RF: 0 esomeprazole magnesium 20 MG capsule,delayed release(DR/EC) 20 mg PO DAILY RF: 0 Provider Discharge Instructions Diet: Low-fat and Low-cholesterol Skin/Wound/Dressing Care Report to your healthcare provider any signs of infection, such as:: chills, fever, night sweats, increased pain, unusual drainage and unusual redness Visit Report/Discharge Packet Instructions: Chronic Obstructive Pulmonary Disease, DI for Heart Failure, DI for Chronic Obstructive Pulmonary Disease, Tramadol Visit Report Forms: Stroke Signs & Symptoms Discharge Data Attending Provider: Donnell Pool Admit Date/Time: 03/18/18 17:31 Discharges patient from system. Discharge Date/Time: 03/20/18 13:08 Quality VTE Deep Vein Thrombosis/Pulmonary Embolism Present on Admission: No
== END 2018-03-20 13:08 | disposition home or self-care (01) | DRG 190 ==
LOC: ED 16:11 → AC 17:32
PROVIDERS: Nurse Practitioner Gerontology; Admitting Provider Hospitalist; Emergency Provider Nurse Practitioner Family; Visit Provider Hospitalist
DX: J44.1 Chronic obstructive pulmonary disease with (acute) exacerbation (principal); E43 Unspecified severe protein-calorie malnutrition; Z68.1 Body mass index [BMI] 19.9 or less, adult; E87.1 Hypo-osmolality and hyponatremia; C34.91 Malignant neoplasm of unspecified part of right bronchus or lung; C79.51 Secondary malignant neoplasm of bone; K59.03 Drug induced constipation; T40.2X5A Adverse effect of other opioids, initial encounter; E83.42 Hypomagnesemia; M84.48XG Pathological fracture, other site, subsequent encounter for fracture with delayed healing; E03.8 Other specified hypothyroidism; Z91.19 Patient's noncompliance with other medical treatment and regimen
CPT/HCPCS: 36415; 36591; 71045; 74177; 80053; 81001; 81003; 83605; 83690; 83735; 84100; 84145; 84443; 85025; 85610; 86140; 87040; 87070; 87205; 87449; 94640; 94760; 94762; 96361; 96374; 97161; 99283; 99285; 99406; J1170; J1650; Q9967

== ENCOUNTER 2018-04-11 09:57 | Inpatient (IN) | payer MEDICAID, OTHER, SELFPAY ==
[2018-03-18 19:06] VITALS: BMI 17.8
[2018-04-11] VITALS (15 sets, daily range): BP systolic 100–129; BP diastolic 64–84; PULSE 68–111; RESP 15–28; TEMP 36.8–37; O2SAT 93–100; BMI 19.3
--- NOTE | 2018-04-11 10:14 | ED_ITS ---
HPI - Abdominal Pain General Chief Complaint: Abdominal Pain Stated Complaint: abd pain Time Seen by Provider: 04/11/18 09:58 Source: patient, EMS and old records reviewed Mode of arrival: EMS History of Present Illness HPI narrative: Patient is a 63-year-old male who presents with abdominal pain. He has a history of metastatic lung cancer. He has been having abdominal pain off and on for the last 2 days. He has also noted some redness and drainage at his old PEG tube site. His PEG tube has been removed for at least a year and the redness and drainage started about the same time as his pain. He has felt nauseated at times no significant vomiting. He has not had any fever or chills over weakness. He also has some mild shortness of breath but does have a history of COPD and was just admitted in March for COPD. MD complaint: abdominal pain Related Data Home Medications Medication Instructions Recorded Confirmed albuterol sulfate [ProAir HFA] 1 puff INH Q6H 03/18/18 04/11/18 esomeprazole magnesium 20 mg PO DAILY 03/18/18 04/11/18 levothyroxine 125 mcg PO DAILY 04/11/18 04/11/18 Previous Rx's Medication Instructions Recorded [DISABLED PARKING ] 1 ea X1 #1 ea 04/29/16 acetaminophen 650 mg PO Q8H #30 tab 02/16/17 citalopram [Celexa] 20 mg PO DAILY #90 tab 10/29/17 pregabalin [Lyrica] 50 mg PO TID #90 cap 10/29/17 lactulose [Enulose] 20 g PO TID PRN #120 ml 01/20/18 hydroxyzine HCl 25 - 50 mg PO Q6H PRN #60 tab 02/03/18 levofloxacin [Levaquin] 750 mg PO DAILY #7 tab 03/09/18 famotidine [Pepcid] 20 mg PO BID 42 Days #84 tab 03/20/18 ipratropium-albuterol 3 ml INH Q4HR PRN #40 ml 03/20/18 megestrol 400 mg PO DAILY 60 Days ml 03/20/18 polyethylene glycol 3350 17 gm PO BID 60 Days each 03/20/18 prednisone 10 mg PO DIRECTED #40 tab 03/20/18 sennosides [senna] 17.2 mg PO BEDTIME 60 Days tab 03/20/18 sucralfate [Carafate] 1 gram PO QACHS #180 tab 03/20/18 oxycodone 10 mg PO Q4-6H PRN #60 tab 03/31/18 tramadol 50 mg PO BID #40 tab 03/31/18 Allergies Allergy/AdvReac Type Severity Reaction Status Date / Time aspirin [ASPIRIN] AdvReac Mild NAUSEA Verified 04/11/18 10:05 Review of Systems Review of Systems All systems reviewed & are unremarkable except as noted in HPI and below Constitutional Denies fever(s), Reports malaise, Reports poor appetite and Reports weakness Eyes Denies change in vision, Denies eye discharge, Denies irritation and Denies loss of vision ENT Ears, Nose, Mouth, and Throat: Denies change in voice, Denies neck pain and Denies sore throat Cardiovascular Denies chest pain, Denies irregular heart rhythm, Denies lightheadedness, Denies palpitations and Denies orthopnea Respiratory Reports as per HPI Gastrointestinal Gastrointestinal: Reports as per HPI Genitourinary Denies hematuria, Denies flank pain, Denies urinary incontinence and Denies urinary urgency Musculoskeletal Denies neck pain Integumentary/Breasts Reports as per HPI and Reports erythema Neurologic Denies loss of vision and Reports weakness Endocrine Denies palpitations PFSH Medical History Depression (Acute) GERD (gastroesophageal reflux disease) (Acute) PEG (percutaneous endoscopic gastrostomy) adjustment/replacement/removal (Acute) Peripheral neuropathy (Acute) DVT of upper extremity (deep vein thrombosis) (Acute) COPD (chronic obstructive pulmonary disease) (Chronic) Hypothyroid (Chronic) Lung cancer, primary, with metastasis from lung to other site (Chronic) Surgical History History of lung biopsy (Acute) Social History household members: spouse and caregiver Smoking Status: Current every day smoker alcohol intake: former Exam Initial Vital Signs Initial Vital Signs: Vital Signs Temperature 98.2 F 04/11/18 10:05 Pulse Rate 111 H 04/11/18 10:05 Respiratory Rate 18 04/11/18 10:05 Blood Pressure 128/84 04/11/18 10:05 Pulse Oximetry 99 04/11/18 10:05 GENERAL: Very thin frail chronically ill male in no acute distress HEENT: Head atraumatic,EOMI, pupils reactive, f CARDIOVASCULAR: Regular rate and rhythm without murmurs, rubs or gallops. RESPIRATORY: Coarse breath sounds bilaterally ABDOMEN: Soft, minimal umbilical pain increased bowel sounds no guarding or rebound EXTREMITIES: Normal range of motion, no clubbing or edema. Neurovascularly intact NEUROLOGICAL: Alert and oriented x4.Normal gait and speech. Cranial nerves II through XII grossly intact. SKIN: Erythema with clear drainage at old peg tube site no significant surrounding induration very minimal Course Orders Ordered: ED Orders 04/11/18 10:30 Wound Culture and Gram Stain Stat 04/11/18 10:40 Complete Blood Count AUTO DIFF Stat Comprehensive Metabolic Panel Stat Lipase Stat 04/11/18 11:23 CT abdomen pelvis w con Stat 04/11/18 13:51 Consult to General Surgery Stat 04/11/18 14:07 Education, smoking cessation ONGOING 04/11/18 15:06 Consult to Dietitian, Adult Routine Consult to Manager Credit Risk Routine 04/11/18 16:30 Urinalysis and Microscopic Routine Acetaminophen (Tylenol) 650 mg PO Q6HR PRN PRN Reason: As Needed for Fever/Mild Pain Albuterol/Ipratropium (Duoneb) 3 ml INH RTQ4HR PRN PRN Reason: Shortness Of Breath Heparin Sodium (Porcine) (Heparin) 5,000 unit SUBCUT BID [facility] Hydromorphone HCl (Dilaudid) 1 mg IV Q2H PRN PRN Reason: Pain, Severe (7-10) Last Admin: 04/11/18 17:58 Dose: 1 mg Sodium Chloride (Normal Saline 0.45%) 1,000 mls @ 100 mls/hr IV CONT [facility] Last Admin: 04/11/18 15:19 Dose: 100 mls/hr Levofloxacin (Levaquin) 500 mg in 100 mls @ 100 mls/hr IV Q24H [place] Last Admin: 04/11/18 17:58 Dose: 100 mls/hr Levothyroxine Sodium (Synthroid Inj) 62.5 mcg IV 1700 [facility] Ondansetron HCl (Zofran Odt) 4 mg PO Q8HR PRN PRN Reason: Nausea And Vomiting Ondansetron HCl (Zofran) 4 mg IV Q8HR PRN PRN Reason: Nausea And Vomiting Discontinued Medications Albuterol/Ipratropium (Duoneb) 3 ml INH NOW ONE Stop: 04/11/18 10:16 Last Admin: 04/11/18 10:37 Dose: 3 ml Hydromorphone HCl (Dilaudid) 1 mg IV NOW ONE Stop: 04/11/18 10:35 Last Admin: 04/11/18 10:48 Dose: 1 mg Hydromorphone HCl (Dilaudid) 1 mg IV NOW ONE Stop: 04/11/18 12:51 Last Admin: 04/11/18 12:54 Dose: 1 mg Hydromorphone HCl (Dilaudid) 1 mg IV Q4H PRN PRN Reason: Pain, Severe (7-10) Hydromorphone HCl (Dilaudid) 1 mg IV NOW ONE Stop: 04/11/18 15:31 Last Admin: 04/11/18 15:28 Dose: 1 mg Sodium Chloride (Normal Saline 0.9%) 1,000 mls @ 150 mls/hr IV CONT [facility] Last Infusion: 04/11/18 14:37 Dose: 150 mls/hr Admin: 04/11/18 10:48 Dose: 150 mls/hr Ondansetron HCl (Zofran) 4 mg IV NOW ONE Stop: 04/11/18 11:32 Last Admin: 04/11/18 11:33 Dose: 4 mg Vital Signs - 8 hr 04/11/18 11:30 04/11/18 12:05 04/11/18 12:30 Temperature Pulse Rate 107 H 99 H 97 H Respiratory Rate 18 18 18 Blood Pressure Blood Pressure [Left Arm] 129/72 108/77 117/70 Pulse Oximetry 95 96 97 04/11/18 13:30 04/11/18 14:07 04/11/18 14:38 Temperature 98.4 F Pulse Rate 74 87 68 Respiratory Rate 15 17 16 Blood Pressure 109/64 Blood Pressure [Left Arm] 110/77 109/70 Pulse Oximetry 100 97 100 04/11/18 14:50 04/11/18 15:09 04/11/18 16:00 Temperature 98.2 F Pulse Rate 83 Respiratory Rate 16 Blood Pressure 100/70 Blood Pressure [Left Arm] Pulse Oximetry 96 93 98 04/11/18 19:25 Temperature 98.6 F Pulse Rate 81 Respiratory Rate 15 Blood Pressure 116/71 Blood Pressure [Left Arm] Pulse Oximetry 95 MDM - Abdominal Pain Lab Data Attestation: I reviewed the patient's lab results. Result diagrams: 04/11/18 10:40 04/11/18 10:40 Lab Results 04/11/18 04/11/18 04/11/18 Range/Units 10:40 10:40 16:30 WBC 8.3 (4.5-11.0) X10^3/uL RBC 4.82 (4.5-5.9) X10^6/uL Hgb 14.3 (13.5-17.5) g/dL Hct 42.6 (41-53) % MCV 88.3 (80-100) fL MCH 29.6 (26-34) PG MCHC 33.5 (30-36) % RDW 17.3 H (11.6-14.8) % Plt Count 295 (150-400) X10^3/uL Neut % (Auto) 68.3 (50-75) % Lymph % (Auto) 16.6 L (25-40) % [place] % (Auto) 13.0 (3-14) % Eos % (Auto) 0.8 L (2-4) % Baso % (Auto) 1.3 (0-2) % Neut # (Auto) 5700 (3151-1159) /uL Sodium 133 L (137-145) mmol/L Potassium 4.4 (3.4-5.1) mmol/L Chloride 100 (98-107) mmol/L Carbon Dioxide 26 (22-32) mmol/L BUN 14 (9-20) mg/dL Creatinine 0.90 (0.66-1.25) mg/dL Estimated GFR > 60.0 (>60) mL/min BUN/Creatinine Ratio 15.6 (6-22) Glucose 93 (80-110) mg/dL Calcium 9.5 (8.4-10.2) mg/dL Total Bilirubin 0.6 (0.2-1.3) mg/dL AST 55 (17-59) IU/L ALT 66 (21-72) IU/L Alkaline Phosphatase 66 (38-126) U/L Total Protein 7.5 (6.3-8.2) g/dL Albumin 3.8 (3.5-5.0) g/dL Globulin 3.7 (1.7-4.1) g/dL Albumin/Globulin Ratio 1.0 (1.0-2.8) Lipase 86 (23-300) U/L Urine Color Yellow Urine Appearance Clear Urine pH 7.5 (4.5-8.0) Ur Specific [place] 1.010 (1.000-1.035) Urine Protein Negative (Negative) Urine Glucose (UA) Negative (Negative) g/dL Urine Ketones Negative (NEGATIVE) Urine Occult Blood Negative (Negative) Urine Nitrate Negative (Negative) Urine Bilirubin Negative (NEGATIVE) Urine Urobilinogen 0.2 (0.2) E.U./dL Ur Leukocyte Esterase Negative (NEGATIVE) Urine RBC None seen (0-5/HPF) Urine WBC 0-1/hpf (0-5/HPF) Ur Squamous Epith Cells 0-1 /hpf Urine Bacteria None seen (None) Ur Culture Indicated? Cult not indicated Micro UA Comment Not Reportable Point of care testing: Urine Dip Bedside Urine Glucose Negative Bedside Urine Bilirubin - Negative Bedside Urine Ketone - Negative Urine Specific [place] 1.010 Bedside Urine Occult Blood - Negative Bedside Urine pH 8.0 Bedside Urine Protein +/- 15 Bedside Urine Urobilinogen 1+ 2mg Bedside Urine Nitrite - Negative Bedside Urine Leukocytes - Negative Esterase Imaging Data CT scan - abdomen: Radiologist's impression: PROCEDURE: CT ABDOMEN PELVIS W CON INDICATIONS: Abdominal pain, drainage at old PEG site TECHNIQUE: After the administration of oral and intravenous contrast, 5 mm thick sections acquired from the diaphragms to the symphysis. 5 mm thick coronal and sagittal reformats were performed. For radiation dose reduction, the following was used: automated exposure control, adjustment of mA and/or kV according to patient size. COMPARISON: [facility], CT, CT ABDOMEN PELVIS W CON, 03/18/2018, 15:18. FINDINGS: Image quality: Excellent. ABDOMEN: Lung bases: Scattered right basilar atelectasis is seen posteriorly. Left lung base is clear. The Heart size is normal. Solid organs: Liver is normal in size and enhancement. Gallbladder is within normal limits. Biliary system is non-dilated. Pancreas enhances normally. Spleen is normal in size and enhancement. No adrenal nodules. Kidneys are normal in size and enhancement, without hydronephrosis. Left renal cyst is again seen and unchanged from previous study. Peritoneum and bowel: There is a small hiatal hernia. Fluid and contrast distended small bowel loops are noted throughout abdomen with decompressed appearing terminal ileum with suggestion of transition point seen in right lower quadrant abdomen series 2 image 62 and series 4 image 26. No significant colonic or small bowel wall thickening is seen. No mesenteric fat stranding is seen. No peritoneal or retroperitoneal abscess collection. Nodes and vessels: No retroperitoneal or mesenteric adenopathy. Aorta and inferior vena cava are normal in caliber. Miscellaneous: Surgical scar at old PEG tube site is seen with no discrete drainable fluid collection noted. No ventral hernia. PELVIS: Genitourinary: Diffuse urinary bladder wall thickening is seen, no definite bladder wall mass is seen. Miscellaneous: No inguinal hernias or adenopathy. Bones: No suspicious bony lesions. No vertebral body compression fractures. IMPRESSION: 1. Findings suspicious for low grade distal small bowel obstruction with transition point in right lower quadrant abdomen possibly secondary to adhesion. No abnormal bowel wall thickening. No peritoneal free fluid or free air. Small hiatal hernia. 2. Scarring at old PEG tube insertion site with no drainable fluid collection. No subcutaneous emphysema. 3. Right basilar atelectasis. 4. Diffuse bladder wall thickening, no definite discrete bladder wall mass. Cystitis cannot be excluded. Dictated by: Ari Michael M.D. on 04/11/2018 at 12:49 MDM Narrative Medical decision making narrative: Wound culture taken from PEG tube site. CT confirmed partial small-bowel obstruction no fistula seen. Dr. Mijares has been consulted for surgery she is quite familiar with the patient herself. Dr. Wood accepts patient Discharge Plan Departure Patient Disposition: Admitted as Observation Clinical Impression: Partial small bowel obstruction Discharge Date/Time: 04/11/18 14:38 Interventions: ED Discharge Assessment Last Done: 04/11/18 14:38 Admit Date/Time: 04/11/18 13:56 Admit Provider: Brandi Wood
[2018-04-11] MEDS: ALBUTEROL/IPRATROPIUM 3 ML AMPUL INH ×2 (10:37→21:44)
[2018-04-11] MEDS: SODIUM CHLORIDE 0.9% 1,000 ML 150 ML IV (10:48)
[2018-04-11] MEDS: HYDROMORPHONE 1 MG INJ IV ×5 (10:48→21:38)
[2018-04-11 10:56] LABS: Add Manual Diff / Slide Review NO; Basophils Percent Auto 1.3 % (0-2); Eosinophils Percent Auto 0.8 % (2-4); Hematocrit 42.6 % (41-53); Hemoglobin 14.3 g/dL (13.5-17.5); Lymphocytes Percent Auto 16.6 % (25-40); Mean Corpuscular HGB Conc 33.5 % (30-36); Mean Corpuscular Hemoglobin 29.6 PG (26-34); Mean Corpuscular Volume 88.3 fL (80-100); Neutrophils Absolute Auto 5700 /uL (1500-7000); Neutrophils Percent Auto 68.3 % (50-75); Platelet Count 295 X10^3/uL (150-400); Red Blood Cell Count 4.82 X10^6/uL (4.5-5.9); Red Cell Distribution Width 17.3 % (11.6-14.8); White Blood Cell Count 8.3 X10^3/uL (4.5-11.0)
[2018-04-11 11:08] LABS: Alanine Aminotransferase 66 IU/L (21-72); Albumin 3.8 g/dL (3.5-5.0); Alkaline Phosphatase 66 U/L (38-126); Aspartate Aminotransferase 55 IU/L (17-59); BUN Creatinine Ratio 15.6 (6-22); Bilirubin Total 0.6 mg/dL (0.2-1.3); Blood Urea Nitrogen 14 mg/dL (9-20); Calcium 9.5 mg/dL (8.4-10.2); Carbon Dioxide 26 mmol/L (22-32); Chloride 100 mmol/L (98-107); Estimated Glomerular Filt Rate > 60.0 mL/min (>60); Globulin 3.7 g/dL (1.7-4.1); Glucose 93 mg/dL (80-110); HEMOLYSIS < 15 (0-50); Lipase 86 U/L (23-300); Potassium 4.4 mmol/L (3.4-5.1); Sodium 133 mmol/L (137-145); Total Protein 7.5 g/dL (6.3-8.2)
--- NOTE | 2018-04-11 11:23 | DI.CT.S_ITS ---
PROCEDURE: CT ABDOMEN PELVIS W CON INDICATIONS: Abdominal pain, drainage at old PEG site TECHNIQUE: After the administration of oral and intravenous contrast, 5 mm thick sections acquired from the diaphragms to the symphysis. 5 mm thick coronal and sagittal reformats were performed. For radiation dose reduction, the following was used: automated exposure control, adjustment of mA and/or kV according to patient size. COMPARISON: [facility], CT, CT ABDOMEN PELVIS W CON, 03/18/2018, 15:18. FINDINGS: Image quality: Excellent. ABDOMEN: Lung bases: Scattered right basilar atelectasis is seen posteriorly. Left lung base is clear. The Heart size is normal. Solid organs: Liver is normal in size and enhancement. Gallbladder is within normal limits. Biliary system is non-dilated. Pancreas enhances normally. Spleen is normal in size and enhancement. No adrenal nodules. Kidneys are normal in size and enhancement, without hydronephrosis. Left renal cyst is again seen and unchanged from previous study. Peritoneum and bowel: There is a small hiatal hernia. Fluid and contrast distended small bowel loops are noted throughout abdomen with decompressed appearing terminal ileum with suggestion of transition point seen in right lower quadrant abdomen series 2 image 62 and series 4 image 26. No significant colonic or small bowel wall thickening is seen. No mesenteric fat stranding is seen. No peritoneal or retroperitoneal abscess collection. Nodes and vessels: No retroperitoneal or mesenteric adenopathy. Aorta and inferior vena cava are normal in caliber. Miscellaneous: Surgical scar at old PEG tube site is seen with no discrete drainable fluid collection noted. No ventral hernia. PELVIS: Genitourinary: Diffuse urinary bladder wall thickening is seen, no definite bladder wall mass is seen. Miscellaneous: No inguinal hernias or adenopathy. Bones: No suspicious bony lesions. No vertebral body compression fractures. IMPRESSION: 1. Findings suspicious for low grade distal small bowel obstruction with transition point in right lower quadrant abdomen possibly secondary to adhesion. No abnormal bowel wall thickening. No peritoneal free fluid or free air. Small hiatal hernia. 2. Scarring at old PEG tube insertion site with no drainable fluid collection. No subcutaneous emphysema. 3. Right basilar atelectasis. 4. Diffuse bladder wall thickening, no definite discrete bladder wall mass. Cystitis cannot be excluded. Dictated by: Ari Michael M.D. on 04/11/2018 at 12:49 Approved by: Ari Michael M.D. on 04/11/2018 at 12:58
[2018-04-11] MEDS: ONDANSETRON 4 MG/2 ML INJ IV (11:33)
--- NOTE | 2018-04-11 15:01 | P.HP_ITS ---
History of Present Illness Date Patient Seen: 04/11/18 Chief complaint: abd pain Narrative: Yash Davila is a 63-year-old male with past medical history significant for depression, GERD, COPD and right upper lung metastatic adenocarcinoma previously on nivolumab until 02/23/2018 which was discontinued for concern of pneumonitis treated with glucocorticoid taper now off prednisone who presented for mid abdominal pain. The patient reports that for the last 4-5 days he has had mid abdominal pain that has progressively worsened. It has been a +9/10 in severity at its worst. The pain does not radiate. He denies any associated symptoms including nausea, vomiting, fever, chills, diarrhea or constipation. He has chronic shortness of breath with activity and cough with foul smelling phlegm. He denies shortness of breath today at rest. He had a headache yesterday which has resolved. He has a good appetite but has not been eating much due to the pain. He reports he erythema and drainage around a previous PEG tube scar. The ED physician also appreciated drainage around previous PEG tube scar and spent a wound culture. CT abdomen and pelvis with contrast demonstrated low grade distal small bowel obstruction with transition point in right lower quadrant abdomen possibly secondary to adhesion and scarring at old PEG tube insertion site with no drainable fluid collection or subcutaneous emphysema. General surgery, Dr. Mijares, was consulted by ED physician for possible drainage and infection from previous PEG tube scar and low-grade partial SBO. Patient History Medical History Depression (Acute) GERD (gastroesophageal reflux disease) (Acute) PEG (percutaneous endoscopic gastrostomy) adjustment/replacement/removal (Acute) Peripheral neuropathy (Acute) DVT of upper extremity (deep vein thrombosis) (Acute) COPD (chronic obstructive pulmonary disease) (Chronic) Hypothyroid (Chronic) Lung cancer, primary, with metastasis from lung to other site (Chronic) Surgical History History of lung biopsy (Acute) Family & Social History Family History: Reviewed 04/11/18 by Veronica Mijares MD Social History: household members spouse,caregiver The patient is x 20 years. He has 2 children, a daughter and a son from previous relationship who are both healthy. Tobacco & Substance use: Tobacco type cigarettes Smoking Status Current every day smoker, 1-2 cigarettes a day , previously 0.75 ppd x 50+ years alcohol intake former alcohol intake frequency 0-2 drinks per day Substance Use Type does not use Meds Home Medications Medication Instructions Recorded Confirmed Type [DISABLED PARKING ] 1 ea X1 #1 ea 04/29/16 04/11/18 Rx acetaminophen 650 mg PO Q8H #30 tab 02/16/17 04/11/18 Rx citalopram [Celexa] 20 mg PO DAILY #90 tab 10/29/17 04/11/18 Rx pregabalin [Lyrica] 50 mg PO TID #90 cap 10/29/17 04/11/18 Rx lactulose [Enulose] 20 g PO TID PRN #120 ml 01/20/18 04/11/18 Rx hydroxyzine HCl 25 - 50 mg PO Q6H PRN #60 tab 02/03/18 04/11/18 Rx levofloxacin [Levaquin] 750 mg PO DAILY #7 tab 03/09/18 04/11/18 Rx albuterol sulfate [ProAir HFA] 1 puff INH Q6H 03/18/18 04/11/18 History esomeprazole magnesium 20 mg PO DAILY 03/18/18 04/11/18 History famotidine [Pepcid] 20 mg PO BID 42 Days #84 tab 03/20/18 04/11/18 Rx ipratropium-albuterol 3 ml INH Q4HR PRN #40 ml 03/20/18 04/11/18 Rx megestrol 400 mg PO DAILY 60 Days ml 03/20/18 04/11/18 Rx polyethylene glycol 3350 17 gm PO BID 60 Days each 03/20/18 04/11/18 Rx prednisone 10 mg PO DIRECTED #40 tab 03/20/18 04/11/18 Rx sennosides [senna] 17.2 mg PO BEDTIME 60 Days tab 03/20/18 04/11/18 Rx sucralfate [Carafate] 1 gram PO QACHS #180 tab 03/20/18 04/11/18 Rx oxycodone 10 mg PO Q4-6H PRN #60 tab 03/31/18 04/11/18 Rx tramadol 50 mg PO BID #40 tab 03/31/18 04/11/18 Rx levothyroxine 125 mcg PO DAILY 04/11/18 04/11/18 History Allergies Allergy/AdvReac Type Severity Reaction Status Date / Time aspirin [ASPIRIN] AdvReac Mild NAUSEA Verified 04/11/18 10:05 Review of Systems Review of Systems A 10 system comprehensive review of systems was conducted with the patient and found to be negative except as above in the History of Present Illness. Exam Vital Signs (past 8 hours): - 04/11/18 10:05 04/11/18 10:31 04/11/18 10:38 Temperature 98.2 F Pulse Rate 111 H 107 H 107 H Respiratory Rate 18 28 H 18 Blood Pressure 128/84 Blood Pressure [Left Arm] 125/74 Pulse Oximetry 99 98 96 04/11/18 11:30 04/11/18 12:05 04/11/18 12:30 Temperature Pulse Rate 107 H 99 H 97 H Respiratory Rate 18 18 18 Blood Pressure Blood Pressure [Left Arm] 129/72 108/77 117/70 Pulse Oximetry 95 96 97 04/11/18 13:30 04/11/18 14:07 04/11/18 14:38 Temperature 98.4 F Pulse Rate 74 87 68 Respiratory Rate 15 17 16 Blood Pressure 109/64 Blood Pressure [Left Arm] 110/77 109/70 Pulse Oximetry 100 97 100 Oxygen Delivery Method Room Air Narrative Exam Narrative: General: Middle-age male sitting in bed and in no acute distress, thin, appears chronically ill and older than stated age, appropriately interactive. HEENT: Normocephalic, atraumatic. External ears without defect. Pupils equal, round, and reactive to light. Anicteric sclerae, moist conjunctivae, and no lid lag. Oropharynx free of erythema and cobble stoning with moist mucosa. Neck: Supple with full range of motion. No lymphadenopathy or thyromegaly. Cardiovascular: Regular rate and rhythm without murmurs, rubs, or gallops appreciated. Pulmonary: Diminished breath sounds bilaterally with scattered rhonchi throughout all lung monte. Normal respiratory effort with no use of accessory muscles. Abdomen: Soft, bowel sounds present, tenderness to palpation diffusely in mid/ lower abdomen. No rebound or guarding. Nondistended. No masses appreciated. Old PEG tube site appears erythematous and tender to touch without any drainage appreciated. Extremities: No clubbing, cyanosis, or edema. Scattered excoriations on back and one in mid right axillary line. Skin: Normal temperature, turgor, and texture; no rash, ulcers, or subcutaneous nodules appreciated. Neurological: Cranial nerves grossly intact. Normal muscle strength, tone, and bulk. Reflexes, coordination, and sensory function within normal limits. No known gait impairment. Psychiatric: Normal mood and affect. Alert and oriented to person, place, and time. Objective Labs Result Diagrams: 04/11/18 10:40 04/11/18 10:40 Labs: Laboratory Results - last 24 hr 04/11/18 04/11/18 10:40 10:40 WBC 8.3 RBC 4.82 Hgb 14.3 Hct 42.6 MCV 88.3 MCH 29.6 MCHC 33.5 RDW 17.3 H Plt Count 295 Neut % (Auto) 68.3 Lymph % (Auto) 16.6 L Swift % (Auto) 13.0 Eos % (Auto) 0.8 L Baso % (Auto) 1.3 Neut # (Auto) 5700 Sodium 133 L Potassium 4.4 Chloride 100 Carbon Dioxide 26 BUN 14 Creatinine 0.90 Estimated GFR > 60.0 BUN/Creatinine Ratio 15.6 Glucose 93 Calcium 9.5 Total Bilirubin 0.6 AST 55 ALT 66 Alkaline Phosphatase 66 Total Protein 7.5 Albumin 3.8 Globulin 3.7 Albumin/Globulin Ratio 1.0 Lipase 86 Assessment & Plan Plan: Assessment/Plan Narrative: Yash Davila is a 63-year-old male with past medical history significant for depression, GERD, COPD and right upper lung metastatic adenocarcinoma previously on nivolumab until 02/23/2018 which was discontinued for concern of pneumonitis treated with glucocorticoid taper now off prednisone who presented for mid abdominal pain. 1. Acute partial small-bowel obstruction, present on admission. Active. -Patient presented with complaint of abdominal pain around old PEG tube site. -CT abdomen and pelvis with contrast demonstrated low grade distal small bowel obstruction with transition point in right lower quadrant abdomen possibly secondary to adhesion and scarring at old PEG tube insertion site with no drainable fluid collection or subcutaneous emphysema. -Started patient on IV fluids with NS at 100 mL/hr. -Patient NPO for bowel rest. May have sips and chips per surgery. -Ordered hydromorphone 1 mg every 2 hours as needed for abdominal pain. -Encouraged the patient to ambulate as tolerated -ED physician consulted General surgery, Dr. Mijares, and we appreciate her time and recommendations. 2. Possible acute cellulitis of abdominal wall secondary to infected old PEG tube site, present on admission. Active. -Patient presents with abdominal pain and erythema around old PEG tube insertion site with no appreciable drainage upon my examination. However, ER physician has sent wound culture with clear fluid drainage, pending. -Started levofloxacin per surgery for possible previous PEG tube insertion site infection. 3. Metastatic adenocarcinoma of right upper lobe of the lung, present on admission. Presumed stable. -Patient is off Nivolumab due to concern for pneumonitis. Patient has planned referral to Dr. Guardado of pulmonology at [facility] to evaluate. -Continue pain medication with hydromorphone 1 mg every 2 hr as needed for severe pain. Patient is usually on oxycodone 10 mg every 4 hr as needed for pain , pregabalin 50 mg 3 times daily, and tramadol 50 mg twice daily. -Held megestrol for bowel rest. 4. Secondary hypothyroidism, chronic, present on admission. Active. -Continue equivalent of oral levothyroxine 125 mcg with levothyroxine 62.5 mg IV daily. 5. Depression, chronic, present on admission. Stable. -Held citalopram bowel rest. 6. COPD, present on admission. Stable. -Continue home inhalers as nebs and as needed. -Patient titrated off of prednisone for possible pneumonitis. 7. GERD, chronic, present on admission. Stable. -Held PPI and H2 humberto for bowel rest. 8. Generalized pruritus, chronic, present on admission. Active. -Ordered as needed Benadryl 25 mg every 6 hours. -Held hydroxyzine for bowel rest. Patient is admitted under inpatient status with expected length of stay greater than 2 midnights due to severity of presenting symptoms, risk of adverse event, and complexity of treatment plan.
--- NOTE | 2018-04-11 15:09 | PC.NURSE ---
Addendum entered by Renee Cao R.N. 04/11/18 15:29: Clarified home medications with Pt, does not use OXYcontin, Tramadol is his BID pain control. Updated in home med summary. Original Note: Admit into room 203, arrived from ER SOB with activity. Spo2 93% RA. Reports pain r/t Lung CA and mets to back/spine. IV dilaudid given in ER. Will follow up with increased dose frequency for pain control. Portacath L chest accessed. IVF infusing.
[2018-04-11] MEDS: SODIUM CHLORIDE 0.45% 1,000 ML 100 ML IV (15:19)
--- NOTE | 2018-04-11 16:00 | PM.CN ---
History of Present Illness Date Patient Seen: 04/11/18 Chief complaint: abd pain Reason for consult: Small-bowel obstruction Requesting provider: Selena Mcallister Narrative: Yash is a pleasant 63-year-old gentleman who is well known to me from prior visits. I last saw him about a year ago and removed a PEG tube that had been inserted to facilitate nutrition. He suffers from metastatic malignancy affecting his neck and chest. He was seen and admitted to our hospital this past March with symptoms of abdominal pain and postobstructive pneumonia. Those symptoms all resolved and he was discharged home. He returns today reporting that he had been having abdominal pain. He says the pain is across the lower portion of his abdomen but more intensely and more specifically his pain is at the site where his PEG tube was removed about a year ago. He reports that it is very tender to touch. Also says that it drained a little bit. He does not think the drainage was bloody. During his evaluation in the emergency room, the wound was cultured and report was that the drainage was clear. He denies any urinary symptoms and denies cough. He tells me his last normal bowel movement was last evening. He thinks he may have passed some flatus today. He denies any nausea and says that really has not been an issue for him during this episode. [facility] Medical History DVT of upper extremity (deep vein thrombosis) (Acute) COPD (chronic obstructive pulmonary disease) (Chronic) Hypothyroid (Chronic) Lung cancer, primary, with metastasis from lung to other site (Chronic) Family History Mother No known health problems Father No known health problems Social History household members: spouse and caregiver Smoking Status: Current every day smoker alcohol intake: former Meds Home Medications Medication Instructions Recorded Confirmed Type [DISABLED PARKING ] 1 ea X1 #1 ea 04/29/16 04/11/18 Rx acetaminophen 650 mg PO Q8H #30 tab 02/16/17 04/11/18 Rx citalopram [Celexa] 20 mg PO DAILY #90 tab 10/29/17 04/11/18 Rx pregabalin [Lyrica] 50 mg PO TID #90 cap 10/29/17 04/11/18 Rx lactulose [Enulose] 20 g PO TID PRN #120 ml 01/20/18 04/11/18 Rx hydroxyzine HCl 25 - 50 mg PO Q6H PRN #60 tab 02/03/18 04/11/18 Rx levofloxacin [Levaquin] 750 mg PO DAILY #7 tab 03/09/18 04/11/18 Rx albuterol sulfate [ProAir HFA] 1 puff INH Q6H 03/18/18 04/11/18 History esomeprazole magnesium 20 mg PO DAILY 03/18/18 04/11/18 History famotidine [Pepcid] 20 mg PO BID 42 Days #84 tab 03/20/18 04/11/18 Rx ipratropium-albuterol 3 ml INH Q4HR PRN #40 ml 03/20/18 04/11/18 Rx megestrol 400 mg PO DAILY 60 Days ml 03/20/18 04/11/18 Rx polyethylene glycol 3350 17 gm PO BID 60 Days each 03/20/18 04/11/18 Rx prednisone 10 mg PO DIRECTED #40 tab 03/20/18 04/11/18 Rx sennosides [senna] 17.2 mg PO BEDTIME 60 Days tab 03/20/18 04/11/18 Rx sucralfate [Carafate] 1 gram PO QACHS #180 tab 03/20/18 04/11/18 Rx oxycodone 10 mg PO Q4-6H PRN #60 tab 03/31/18 04/11/18 Rx tramadol 50 mg PO BID #40 tab 03/31/18 04/11/18 Rx levothyroxine 125 mcg PO DAILY 04/11/18 04/11/18 History Allergies Allergy/AdvReac Type Severity Reaction Status Date / Time aspirin [ASPIRIN] AdvReac Mild NAUSEA Verified 04/11/18 10:05 Review of Systems Review of Systems All systems reviewed & are unremarkable except as noted in HPI and below Exam Vital Signs (past 8 hours): - 04/11/18 10:05 04/11/18 10:31 04/11/18 10:38 Temperature 98.2 F Pulse Rate 111 H 107 H 107 H Respiratory Rate 18 28 H 18 Blood Pressure 128/84 Blood Pressure [Left Arm] 125/74 Pulse Oximetry 99 98 96 04/11/18 11:30 04/11/18 12:05 04/11/18 12:30 Temperature Pulse Rate 107 H 99 H 97 H Respiratory Rate 18 18 18 Blood Pressure Blood Pressure [Left Arm] 129/72 108/77 117/70 Pulse Oximetry 95 96 97 04/11/18 13:30 04/11/18 14:07 04/11/18 14:38 Temperature 98.4 F Pulse Rate 74 87 68 Respiratory Rate 15 17 16 Blood Pressure 109/64 Blood Pressure [Left Arm] 110/77 109/70 Pulse Oximetry 100 97 100 04/11/18 14:50 04/11/18 15:09 Temperature 98.2 F Pulse Rate 83 Respiratory Rate 16 Blood Pressure 100/70 Blood Pressure [Left Arm] Pulse Oximetry 96 93 Oxygen Delivery Method Room Air Narrative Exam Narrative: Very thin but pleasant gentleman in no distress. He tells me that his pain is primarily just at the PEG tube site currently. He has already requested medication for this discomfort. HEENT: Normocephalic and atraumatic, pupils equal round and reactive to light accommodation. Sclera are anicteric Lungs: Coarse breath sounds bilaterally. Scattered expiratory wheezes. Heart: Regular rate and rhythm without murmur Abdomen: Soft, global tenderness to palpation. Active bowel sounds. In the left upper quadrant, there is a scar where the PEG tube was removed. This includes a halo of erythema approximately 3 and 0.5 cm in diameter. I am not able to express anything from the old PEG site. Quite tender to palpation. No other abdominal masses or lesions are externally appreciated. No hernias. Extremities: No evidence of imminent ischemia Objective Labs Result Diagrams: 04/11/18 10:40 04/11/18 10:40 Labs: Laboratory Results - last 24 hr 04/11/18 04/11/18 10:40 10:40 WBC 8.3 RBC 4.82 Hgb 14.3 Hct 42.6 MCV 88.3 MCH 29.6 MCHC 33.5 RDW 17.3 H Plt Count 295 Neut % (Auto) 68.3 Lymph % (Auto) 16.6 L Day % (Auto) 13.0 Eos % (Auto) 0.8 L Baso % (Auto) 1.3 Neut # (Auto) 5700 Sodium 133 L Potassium 4.4 Chloride 100 Carbon Dioxide 26 BUN 14 Creatinine 0.90 Estimated GFR > 60.0 BUN/Creatinine Ratio 15.6 Glucose 93 Calcium 9.5 Total Bilirubin 0.6 AST 55 ALT 66 Alkaline Phosphatase 66 Total Protein 7.5 Albumin 3.8 Globulin 3.7 Albumin/Globulin Ratio 1.0 Lipase [address] [address] [address] Scan Report Signed Patient: Yash Davila MR#: [id number] : 1955 Acct:[id number] Age/Sex: 63 / M Date of Service: 04/11/18 Loc: ED Accession Number: [id number] Procedure: CT abdomen pelvis w con Ordering Provider: Selena Mcallister D.O. PROCEDURE: CT ABDOMEN PELVIS W CON INDICATIONS: Abdominal pain, drainage at old PEG site TECHNIQUE: After the administration of oral and intravenous contrast, 5 mm thick sections acquired from the diaphragms to the symphysis. 5 mm thick coronal and sagittal reformats were performed. For radiation dose reduction, the following was used: automated exposure control, adjustment of mA and/or kV according to patient size. COMPARISON: [facility], CT, CT ABDOMEN PELVIS W CON, 03/18/2018, 15:18. FINDINGS: Image quality: Excellent. ABDOMEN: Lung bases: Scattered right basilar atelectasis is seen posteriorly. Left lung base is clear. The Heart size is normal. Solid organs: Liver is normal in size and enhancement. Gallbladder is within normal limits. Biliary system is non-dilated. Pancreas enhances normally. Spleen is normal in size and enhancement. No adrenal nodules. Kidneys are normal in size and enhancement, without hydronephrosis. Left renal cyst is again seen and unchanged from previous study. Peritoneum and bowel: There is a small hiatal hernia. Fluid and contrast distended small bowel loops are noted throughout abdomen with decompressed appearing terminal ileum with suggestion of transition point seen in right lower quadrant abdomen series 2 image 62 and series 4 image 26. No significant colonic or small bowel wall thickening is seen. No mesenteric fat stranding is seen. No peritoneal or retroperitoneal abscess collection. Nodes and vessels: No retroperitoneal or mesenteric adenopathy. Aorta and inferior vena cava are normal in caliber. Miscellaneous: Surgical scar at old PEG tube site is seen with no discrete drainable fluid collection noted. No ventral hernia. PELVIS: Genitourinary: Diffuse urinary bladder wall thickening is seen, no definite bladder wall mass is seen. Miscellaneous: No inguinal hernias or adenopathy. Bones: No suspicious bony lesions. No vertebral body compression fractures. IMPRESSION: 1. Findings suspicious for low grade distal small bowel obstruction with transition point in right lower quadrant abdomen possibly secondary to adhesion. No abnormal bowel wall thickening. No peritoneal free fluid or free air. Small hiatal hernia. 2. Scarring at old PEG tube insertion site with no drainable fluid collection. No subcutaneous emphysema. 3. Right basilar atelectasis. 4. Diffuse bladder wall thickening, no definite discrete bladder wall mass. Cystitis cannot be excluded. Dictated by: Ari Michael M.D. on 04/11/2018 at 12:49 Approved by: Ari Michael M.D. on 04/11/2018 at 12:58 [facility] CLIA ID [id number] [address] [place] [address] RUN DATE: 04/11/18 Specimen Inquiry PAGE 1 RUN TIME: 1619 Name: GiovanniYash Thanh Age/Sex: 63/M Attend Dr: Brandi Wood D.O. Unit#: [id number] : 1955Location: 203-1 Re04/11/18 Disch: Status: ADM INOo SPEC #: [id number] VIVEK: 04/11/18 STATUS: RES REQ #: [id number] SPDESC: RECD: 04/11/[address]: Selena Mcallister D.O. SOURCE: Abdomen ENTR: 04/11/[address] [facility] [address]: FAX TO: ORDERED: WOUND Cx and GS Procedure Result Verified Site Gram Stain Final 04/11/18 White blood cells Occasional WBC seen Gram Positive Cocci Scant Aerobic Culture for wounds Pending Anaerobic Culture Final 04/11/18 Test not performed Assessment & Plan Plan: Assessment/Plan Narrative: Pleasant gentleman with stage IV lung malignancy. He has a new infection of an old PEG site for an unexplained reason. Cultures so far has shown only a few gram-positive cocci. I have started Levaquin to treat the skin infection. We will wait for cultures and adjust antibiotic coverage accordingly. His bowel obstruction seems to be low-grade at most. I agree with bowel rest. He can have ice chips. I have also written for urinalysis. Recommend watchful waiting and serial abdominal exams.
--- NOTE | 2018-04-11 16:18 | P.CONS_ITS ---
History of Present Illness Date Patient Seen: 04/11/18 Chief complaint: abd pain Reason for consult: Small-bowel obstruction Requesting provider: Selena Mcallister Narrative: Yash is a pleasant 63-year-old gentleman who is well known to me from prior visits. I last saw him about a year ago and removed a PEG tube that had been inserted to facilitate nutrition. He suffers from metastatic malignancy affecting his neck and chest. He was seen and admitted to our hospital this past March with symptoms of abdominal pain and postobstructive pneumonia. Those symptoms all resolved and he was discharged home. He returns today reporting that he had been having abdominal pain. He says the pain is across the lower portion of his abdomen but more intensely and more specifically his pain is at the site where his PEG tube was removed about a year ago. He reports that it is very tender to touch. Also says that it drained a little bit. He does not think the drainage was bloody. During his evaluation in the emergency room, the wound was cultured and report was that the drainage was clear. He denies any urinary symptoms and denies cough. He tells me his last normal bowel movement was last evening. He thinks he may have passed some flatus today. He denies any nausea and says that really has not been an issue for him during this episode. [facility] Medical History DVT of upper extremity (deep vein thrombosis) (Acute) COPD (chronic obstructive pulmonary disease) (Chronic) Hypothyroid (Chronic) Lung cancer, primary, with metastasis from lung to other site (Chronic) Family History Mother No known health problems Father No known health problems Social History household members: spouse and caregiver Smoking Status: Current every day smoker alcohol intake: former Meds Home Medications Medication Instructions Recorded Confirmed Type [DISABLED PARKING ] 1 ea X1 #1 ea 04/29/16 04/11/18 Rx acetaminophen 650 mg PO Q8H #30 tab 02/16/17 04/11/18 Rx citalopram [Celexa] 20 mg PO DAILY #90 tab 10/29/17 04/11/18 Rx pregabalin [Lyrica] 50 mg PO TID #90 cap 10/29/17 04/11/18 Rx lactulose [Enulose] 20 g PO TID PRN #120 ml 01/20/18 04/11/18 Rx hydroxyzine HCl 25 - 50 mg PO Q6H PRN #60 tab 02/03/18 04/11/18 Rx levofloxacin [Levaquin] 750 mg PO DAILY #7 tab 03/09/18 04/11/18 Rx albuterol sulfate [ProAir HFA] 1 puff INH Q6H 03/18/18 04/11/18 History esomeprazole magnesium 20 mg PO DAILY 03/18/18 04/11/18 History famotidine [Pepcid] 20 mg PO BID 42 Days #84 tab 03/20/18 04/11/18 Rx ipratropium-albuterol 3 ml INH Q4HR PRN #40 ml 03/20/18 04/11/18 Rx megestrol 400 mg PO DAILY 60 Days ml 03/20/18 04/11/18 Rx polyethylene glycol 3350 17 gm PO BID 60 Days each 03/20/18 04/11/18 Rx prednisone 10 mg PO DIRECTED #40 tab 03/20/18 04/11/18 Rx sennosides [senna] 17.2 mg PO BEDTIME 60 Days tab 03/20/18 04/11/18 Rx sucralfate [Carafate] 1 gram PO QACHS #180 tab 03/20/18 04/11/18 Rx oxycodone 10 mg PO Q4-6H PRN #60 tab 03/31/18 04/11/18 Rx tramadol 50 mg PO BID #40 tab 03/31/18 04/11/18 Rx levothyroxine 125 mcg PO DAILY 04/11/18 04/11/18 History Allergies Allergy/AdvReac Type Severity Reaction Status Date / Time aspirin [ASPIRIN] AdvReac Mild NAUSEA Verified 04/11/18 10:05 Review of Systems Review of Systems All systems reviewed & are unremarkable except as noted in HPI and below Exam Vital Signs (past 8 hours): - 04/11/18 10:05 04/11/18 10:31 04/11/18 10:38 Temperature 98.2 F Pulse Rate 111 H 107 H 107 H Respiratory Rate 18 28 H 18 Blood Pressure 128/84 Blood Pressure [Left Arm] 125/74 Pulse Oximetry 99 98 96 04/11/18 11:30 04/11/18 12:05 04/11/18 12:30 Temperature Pulse Rate 107 H 99 H 97 H Respiratory Rate 18 18 18 Blood Pressure Blood Pressure [Left Arm] 129/72 108/77 117/70 Pulse Oximetry 95 96 97 04/11/18 13:30 04/11/18 14:07 04/11/18 14:38 Temperature 98.4 F Pulse Rate 74 87 68 Respiratory Rate 15 17 16 Blood Pressure 109/64 Blood Pressure [Left Arm] 110/77 109/70 Pulse Oximetry 100 97 100 04/11/18 14:50 04/11/18 15:09 Temperature 98.2 F Pulse Rate 83 Respiratory Rate 16 Blood Pressure 100/70 Blood Pressure [Left Arm] Pulse Oximetry 96 93 Oxygen Delivery Method Room Air Narrative Exam Narrative: Very thin but pleasant gentleman in no distress. He tells me that his pain is primarily just at the PEG tube site currently. He has already requested medication for this discomfort. HEENT: Normocephalic and atraumatic, pupils equal round and reactive to light accommodation. Sclera are anicteric Lungs: Coarse breath sounds bilaterally. Scattered expiratory wheezes. Heart: Regular rate and rhythm without murmur Abdomen: Soft, global tenderness to palpation. Active bowel sounds. In the left upper quadrant, there is a scar where the PEG tube was removed. This includes a halo of erythema approximately 3 and 0.5 cm in diameter. I am not able to express anything from the old PEG site. Quite tender to palpation. No other abdominal masses or lesions are externally appreciated. No hernias. Extremities: No evidence of imminent ischemia Objective Labs Result Diagrams: 04/11/18 10:40 04/11/18 10:40 Labs: Laboratory Results - last 24 hr 04/11/18 04/11/18 10:40 10:40 WBC 8.3 RBC 4.82 Hgb 14.3 Hct 42.6 MCV 88.3 MCH 29.6 MCHC 33.5 RDW 17.3 H Plt Count 295 Neut % (Auto) 68.3 Lymph % (Auto) 16.6 L [place] % (Auto) 13.0 Eos % (Auto) 0.8 L Baso % (Auto) 1.3 Neut # (Auto) 5700 Sodium 133 L Potassium 4.4 Chloride 100 Carbon Dioxide 26 BUN 14 Creatinine 0.90 Estimated GFR > 60.0 BUN/Creatinine Ratio 15.6 Glucose 93 Calcium 9.5 Total Bilirubin 0.6 AST 55 ALT 66 Alkaline Phosphatase 66 Total Protein 7.5 Albumin 3.8 Globulin 3.7 Albumin/Globulin Ratio 1.0 Lipase [address] [address] [address] Scan Report Signed Patient: Yash Davila MR#: [id number] : 1955 Acct:[id number] Age/Sex: 63 / M Date of Service: 04/11/18 Loc: ED Accession Number: [id number] Procedure: CT abdomen pelvis w con Ordering Provider: Selena Mcallister D.O. PROCEDURE: CT ABDOMEN PELVIS W CON INDICATIONS: Abdominal pain, drainage at old PEG site TECHNIQUE: After the administration of oral and intravenous contrast, 5 mm thick sections acquired from the diaphragms to the symphysis. 5 mm thick coronal and sagittal reformats were performed. For radiation dose reduction, the following was used: automated exposure control, adjustment of mA and/or kV according to patient size. COMPARISON: [facility], CT, CT ABDOMEN PELVIS W CON, 03/18/2018, 15:18. FINDINGS: Image quality: Excellent. ABDOMEN: Lung bases: Scattered right basilar atelectasis is seen posteriorly. Left lung base is clear. The Heart size is normal. Solid organs: Liver is normal in size and enhancement. Gallbladder is within normal limits. Biliary system is non-dilated. Pancreas enhances normally. Spleen is normal in size and enhancement. No adrenal nodules. Kidneys are normal in size and enhancement, without hydronephrosis. Left renal cyst is again seen and unchanged from previous study. Peritoneum and bowel: There is a small hiatal hernia. Fluid and contrast distended small bowel loops are noted throughout abdomen with decompressed appearing terminal ileum with suggestion of transition point seen in right lower quadrant abdomen series 2 image 62 and series 4 image 26. No significant colonic or small bowel wall thickening is seen. No mesenteric fat stranding is seen. No peritoneal or retroperitoneal abscess collection. Nodes and vessels: No retroperitoneal or mesenteric adenopathy. Aorta and inferior vena cava are normal in caliber. Miscellaneous: Surgical scar at old PEG tube site is seen with no discrete drainable fluid collection noted. No ventral hernia. PELVIS: Genitourinary: Diffuse urinary bladder wall thickening is seen, no definite bladder wall mass is seen. Miscellaneous: No inguinal hernias or adenopathy. Bones: No suspicious bony lesions. No vertebral body compression fractures. IMPRESSION: 1. Findings suspicious for low grade distal small bowel obstruction with transition point in right lower quadrant abdomen possibly secondary to adhesion. No abnormal bowel wall thickening. No peritoneal free fluid or free air. Small hiatal hernia. 2. Scarring at old PEG tube insertion site with no drainable fluid collection. No subcutaneous emphysema. 3. Right basilar atelectasis. 4. Diffuse bladder wall thickening, no definite discrete bladder wall mass. Cystitis cannot be excluded. Dictated by: Ari Michael M.D. on 04/11/2018 at 12:49 Approved by: Ari Michael M.D. on 04/11/2018 at 12:58 [facility] CLIA ID [id number] [address] [place] [address] RUN DATE: 04/11/18 Specimen Inquiry PAGE 1 RUN TIME: 1619 Name: GiovanniYash Thanh Age/Sex: 63/M Attend Dr: Brandi Wood D.O. Unit#: [id number] : 1955Location: 203-1 Re04/11/18 Disch: Status: ADM INOo SPEC #: [id number] VIVEK: 04/11/18 STATUS: RES REQ #: [id number] SPDESC: RECD: 04/11/[address]: Selena Mcallister D.O. SOURCE: Abdomen ENTR: 04/11/[address] [facility] [address]: FAX TO: ORDERED: WOUND Cx and GS Procedure Result Verified Site Gram Stain Final 04/11/181247 White blood cells Occasional WBC seen Gram Positive Cocci Scant Aerobic Culture for wounds Pending Anaerobic Culture Final 04/11/181247 Test not performed Assessment & Plan Plan: Assessment/Plan Narrative: Pleasant gentleman with stage IV lung malignancy. He has a new infection of an old PEG site for an unexplained reason. Cultures so far has shown only a few gram-positive cocci. I have started Levaquin to treat the skin infection. We will wait for cultures and adjust antibiotic coverage accordingly. His bowel obstruction seems to be low-grade at most. I agree with bowel rest. He can have ice chips. I have also written for urinalysis. Recommend watchful waiting and serial abdominal exams.
[2018-04-11 17:42] LABS: Bacteria Urine None Seen; RBC Urine None Seen (0-5/HPF)
[2018-04-11] MEDS: levoFLOXacin 500 MG/100 ML PIGGYBACK 100 MG IV (17:58)
[2018-04-11 18:26] LABS: Appearance Urine UA CLEAR; Bilirubin Urine UA NEGATIVE (NEGATIVE); Color Urine UA YELLOW; Glucose Urine UA NEGATIVE (Negative); Ketones Urine UA NEGATIVE (NEGATIVE); Leukocyte Esterase Urine UA NEGATIVE (NEGATIVE); Nitrite Urine UA NEGATIVE (Negative); Occult Blood Urine UA NEGATIVE (Negative); Protein Urine UA NEGATIVE (Negative); Urobilinogen Urine UA 0.2 E.U./dL (0.2); pH Urine UA 7.5 (4.5-8.0)
[2018-04-11 18:35] LABS: Culture Indicated Urine Cult Not Indicated; Squamous Epithelial Cell Urine 0-1 /HPF; WBC Urine 0-1/HPF (0-5/HPF)
--- NOTE | 2018-04-11 19:14 | PC.NURSE ---
Shift note: Both Dr Mijares and Dr Wood here earlier rounding on patient. Yash is calm, Ox3. Reports pain to RUQ, pointing as high as right chest wall/rib cage, reports pain less after dose of IV Dilaudid. Denies nausea, reports passing some gas, BT hypoactive, abdomen slightly distended. UA sent, IV Levaquin then infused. Able to sit at side of bed to use urinal, voiding with no reported difficulty. Appears weak, frail. Will attempt to ambulate in hallway per Dr hampton.
[2018-04-11] MEDS: HEPARIN 5,000 UNIT/ML VIAL 5000 UNIT SUBCUT (20:40)
[2018-04-11] MEDS: SODIUM CHLORIDE 0.9% FLUSH 10 ML IV (21:40)
[2018-04-12] VITALS (11 sets, daily range): BP systolic 110–119; BP diastolic 65–82; PULSE 73–107; RESP 12–20; TEMP 36.7–38.4; O2SAT 93–100
[2018-04-12] MEDS: HYDROMORPHONE 1 MG INJ IV ×9 (00:31→21:57)
[2018-04-12] MEDS: SODIUM CHLORIDE 0.45% 1,000 ML 100 ML IV ×3 (02:01→22:02)
[2018-04-12 06:02] LABS: Add Manual Diff / Slide Review NO; Basophils Percent Auto 1.3 % (0-2); Eosinophils Percent Auto 1.4 % (2-4); Hematocrit 40.1 % (41-53); Hemoglobin 13.8 g/dL (13.5-17.5); Lymphocytes Percent Auto 17.4 % (25-40); Mean Corpuscular HGB Conc 34.4 % (30-36); Mean Corpuscular Hemoglobin 29.9 PG (26-34); Mean Corpuscular Volume 86.8 fL (80-100); Monocytes Percent Auto 14.7 % (3-14); Neutrophils Absolute Auto 3800 /uL (1500-7000); Neutrophils Percent Auto 65.2 % (50-75); Platelet Count 278 X10^3/uL (150-400); Red Blood Cell Count 4.63 X10^6/uL (4.5-5.9); Red Cell Distribution Width 17.2 % (11.6-14.8); White Blood Cell Count 5.8 X10^3/uL (4.5-11.0)
[2018-04-12] MEDS: HEPARIN 5,000 UNIT/ML VIAL 5000 UNIT SUBCUT ×2 (08:27→20:18)
--- NOTE | 2018-04-12 10:17 | PC.NURSE ---
Addendum entered by Lakisha Chavez R.N. 04/12/18 11:59: pt stood at bedside voided using urinal. C/o abd pain 5/10 medicated per emar. call light within reach and bed alarm on. Original Note: Day shift Pt is A&O able to make needs known forgetful at times and forgets to use call light. Call light within reach and bed alarm on. Pt denies any nausea, + flatus abdomen is soft but tender to touch, continues to be NPO has IV fluids running per emar to port in left chest.
--- NOTE | 2018-04-12 12:26 | P.PN_ITS ---
Subjective Date Patient Seen: 04/12/18 Interval history: Chart reviewed patient seen and examined. Mr. Varela is a 63-year-old gentleman with a history of metastatic carcinoma involving the right upper lung. He presented with abdominal pain and CT confirmed an acute partial small-bowel obstruction. Patient reports minimal abdominal pain today. He has no nausea or vomiting. That he would like to advance his diet. Patient continues to have some exudate from his PEG site. There is no redness or warmth. Exam Vital Signs (past 8 hours): - 04/12/18 07:00 04/12/18 07:40 04/12/18 12:04 Temperature 98.5 F 98.1 F Pulse Rate 89 73 Respiratory Rate 20 12 Blood Pressure 116/74 110/65 Pulse Oximetry 95 94 93 Oxygen Delivery Method Room Air Narrative Exam Narrative: Pleasant gentleman resting comfortably in no obvious distress Lungs: Decreased breath sounds Cardiac exam: Regular rate and rhythm normal S1-S2 Abdomen: Mild distention hypoactive bowel tones, peg site with minimal white exudate. There is no erythema or warmth. There is no rebound tenderness. There is no board-like rigidity. Extremities: No edema Neuro exam: Patient is awake alert and oriented, he is appropriate and responsive, he is able to move all extremities. Objective Labs Result Diagrams: 04/12/18 05:42 04/11/18 10:40 Labs: Laboratory Results - last 24 hr 04/11/18 04/12/18 16:30 05:42 WBC 5.8 RBC 4.63 Hgb 13.8 Hct 40.1 L MCV 86.8 MCH 29.9 MCHC 34.4 RDW 17.2 H Plt Count 278 Neut % (Auto) 65.2 Lymph % (Auto) 17.[address] [place] % (Auto) 14.7 H Eos % (Auto) 1.4 L Baso % (Auto) 1.3 Neut # (Auto) 3800 Urine Color Yellow Urine Appearance Clear Urine pH 7.5 Ur Specific [place] 1.010 Urine Protein Negative Urine Glucose (UA) Negative Urine Ketones Negative Urine Occult Blood Negative Urine Nitrate Negative Urine Bilirubin Negative Urine Urobilinogen 0.2 Ur Leukocyte Esterase Negative Urine RBC None seen Urine WBC 0-1/hpf Ur Squamous Epith Cells 0-1 /hpf Urine Bacteria None seen Ur Culture Indicated? Cult not indicated Micro UA Comment Not Reportable Assessment & Plan (1) Partial small bowel obstruction: Problem details: Patient clinically has made significant improvement. Will continue IV hydration , NPO status and advance diet per surgery. Will repeat labs in the morning, and continue serial abdominal exams. Current visit: Yes Status: Acute (2) COPD (chronic obstructive pulmonary disease): Problem details: Patient has chronic shortness of breath, will continue his inhalers which he takes as an outpatient. Qualifiers: COPD type: unspecified COPD Chronic bronchitis type: Emphysema type: Qualified Code(s): J44.9 - Chronic obstructive pulmonary disease, unspecified Current visit: No Status: Acute (3) Itching: Problem details: Continue Benadryl for chronic pruritus. Current visit: No Status: Acute (4) Hypothyroidism: Problem details: continue usual medications Qualifiers: Hypothyroidism type: Current visit: No Status: Acute (5) GERD (gastroesophageal reflux disease): Problem details: Will continue his PPI. Current visit: Yes Status: Acute (6) Depression: Problem details: Continue antidepressant therapy. Current visit: Yes Status: Acute (7) Hyponatremia: Problem details: Anticipated improved sodium with IV hydration. Consider switching IV fluids to LR if his sodium continues to trend downward Current visit: Yes Status: Acute (8) Cellulitis of abdominal wall: Problem details: No area of erythema. Patient continues on IV levofloxacin. Scant exudate noted Current visit: Yes Status: Acute Quality VTE Deep Vein Thrombosis/Pulmonary Embolism Present on Admission: No
[2018-04-12] MEDS: NICOTINE 21 MG PATCH TOP (12:28)
--- NOTE | 2018-04-12 13:07 | PM.PN.1 ---
Subjective Date Patient Seen: 04/12/18 Time Patient Seen: 13:07 Interval history: Yash denies any abdominal pain today. He reports that he is very hungry and has been passing flatus this morning. He reports in general his belly feels much better. Exam Vital Signs (past 8 hours): - 04/12/18 07:00 04/12/18 07:40 04/12/18 12:04 Temperature 98.5 F 98.1 F Pulse Rate 89 73 Respiratory Rate 20 12 Blood Pressure 116/74 110/65 Pulse Oximetry 95 94 93 Oxygen Delivery Method Room Air Narrative Exam Narrative: Abdomen: Soft, minimal tenderness to palpation around a existing PEG site. Erythema is greatly decreased. Active bowel sounds. Objective Labs Result Diagrams: 04/12/18 05:42 04/11/18 10:40 Labs: Laboratory Results - last 24 hr 04/11/18 04/12/18 16:30 05:42 WBC 5.8 RBC 4.63 Hgb 13.8 Hct 40.1 L MCV 86.8 MCH 29.9 MCHC 34.4 RDW 17.2 H Plt Count 278 Neut % (Auto) 65.2 Lymph % (Auto) 17.4 L [place] % (Auto) 14.7 H Eos % (Auto) 1.4 L Baso % (Auto) 1.3 Neut # (Auto) 3800 Urine Color Yellow Urine Appearance Clear Urine pH 7.5 Ur Specific [place] 1.010 Urine Protein Negative Urine Glucose (UA) Negative Urine Ketones Negative Urine Occult Blood Negative Urine Nitrate Negative Urine Bilirubin Negative Urine Urobilinogen 0.2 Ur Leukocyte Esterase Negative Urine RBC None seen Urine WBC 0-1/hpf Ur Squamous Epith Cells 0-1 /hpf Urine Bacteria None seen Ur Culture Indicated? Cult not indicated Micro UA Comment Not Reportable Assessment & Plan Plan: Assessment/Plan Narrative: Continue Levaquin. Begin regular diet Quality VTE Deep Vein Thrombosis/Pulmonary Embolism Present on Admission: No
--- NOTE | 2018-04-12 14:55 | CM.DANOTE ---
Discharge Planning/Care Management Advanced directive, confirm from FAMILY Start: 04/11/18 15:07 Freq: Q24H Status: Active Protocol: Document 04/12/18 12:41 MS (Rec: 04/12/18 12:41 MS [id number]) Advance Directive, confirm on record Time 12:41 Person contacted copy scanned in Copy received Yes CM Discharge Assessment Start: 04/12/18 11:17 Freq: Status: Active Protocol: Document 04/12/18 11:17 (Rec: 04/12/18 14:55 [id number]) Discharge Planning Assessment Assigned Muck Operator JOSH [place] Advance Directives? Yes: POLST Advance Directives on File Yes: dated August 27: CPR Full Treatment/Medical Intervenitons History Provided By Patient Medical Record Has Patient been admitted in last 30 Yes days? Prior Living Arrangements House Household Members spouse caregiver Comment caregiver/Lakisha resides with patient. Type of transporation used prior to Relies on Others admit Independent with ADL's No Is patient alert and oriented? Yes Needs Assistance With Bathing Grooming Meal Prep Toileting Managing Medications Home Chores / Shopping Comment Patient is able to feed himself and bath himself at times. Caregiver for Another No Comment 2 canes and 4ww prn Comment unclear at this time. Patient will have spouse and livestock farmer to assist. Comment Reviewed EMR: patient is a 63- year-old gentleman with a history of metastatic carcinoma involving the right upper lung. Payer is [employer]. Patient is followed up hospitalist and with Dr. Mijares consulting for possible drainage and infection from previous PEG tube scar and low -grade partial SBO. Patient to advance to regular diet today. Discharge Plan Home Transportation Arrangement spouse will be able to provide . Whiteboard Updated in Patient Room with Yes name and ext. # of Muck Operator Please Provide Date Initial DC 04/12/18 Assessment Was Performed
[2018-04-12] MEDS: SODIUM CHLORIDE 0.9% FLUSH 10 ML IV (16:18)
[2018-04-12] MEDS: levoFLOXacin 500 MG/100 ML PIGGYBACK 100 MG IV (16:18)
[2018-04-12] MEDS: LEVOTHYROXINE INJ 100 MCG/5 ML VIAL 62.5 MCG IV (19:07)
[2018-04-12] MEDS: ALBUTEROL/IPRATROPIUM 3 ML AMPUL INH (20:16)
--- NOTE | 2018-04-12 21:13 | PC.NURSE ---
Nurse notes: Yash appears fatigued, has better color today. Reports feels a little better but still c/o generalized abdomen discomfort as high as 7/10 on pain scale. Reports good pain relief after IV Dilaudid 1 mg administered. Denies nausea. Abdomen distended, cachexic with little to no SQ. Old PEG site proximal to umbilicus with small amt of pussy purulent white/yellow drainage, he said I coughed once and saw it bubble up, him showing nurse by taking off drsg by himself. Pt reminded not to touch site & to keep drsg in place to keep clean. I cleansed wound site with NS and sterile gauze, then placed one folded 4x4 and cover site over the top. Remains on contact isolation, wound culture/sensitivities pending. Pt ambulating to BR for void, otherwise refused to ambulate in hallway, reports wants to rest. Ox3 and using call button appropriately, bed alarm active for safety.
[2018-04-13] VITALS (11 sets, daily range): BP systolic 94–110; BP diastolic 64–77; PULSE 80–93; RESP 18–24; TEMP 36.7–38.4; O2SAT 95–97; BMI 18.8
[2018-04-13] MEDS: ACETAMINOPHEN 325 MG TABLET 650 MG PO ×2 (00:01→16:01)
[2018-04-13] MEDS: HYDROMORPHONE 1 MG INJ IV ×8 (00:01→21:13)
[2018-04-13 06:05] LABS: Add Manual Diff / Slide Review NO; Basophils Percent Auto 1.2 % (0-2); Eosinophils Percent Auto 1.1 % (2-4); Hematocrit 40.1 % (41-53); Hemoglobin 13.9 g/dL (13.5-17.5); Lymphocytes Percent Auto 16.5 % (25-40); Mean Corpuscular HGB Conc 34.5 % (30-36); Mean Corpuscular Volume 86.8 fL (80-100); Monocytes Percent Auto 12.8 % (3-14); Neutrophils Absolute Auto 4100 /uL (1500-7000); Neutrophils Percent Auto 68.4 % (50-75); Platelet Count 270 X10^3/uL (150-400); Red Blood Cell Count 4.62 X10^6/uL (4.5-5.9); Red Cell Distribution Width 16.8 % (11.6-14.8)
[2018-04-13 06:17] LABS: BUN Creatinine Ratio 18.9 (6-22); Blood Urea Nitrogen 17 mg/dL (9-20); Calcium 8.6 mg/dL (8.4-10.2); Carbon Dioxide 22 mmol/L (22-32); Chloride 101 mmol/L (98-107); Estimated Glomerular Filt Rate > 60.0 mL/min (>60); Glucose 89 mg/dL (80-110); HEMOLYSIS < 15 (0-50); Sodium 132 mmol/L (137-145)
[2018-04-13] MEDS: HEPARIN 5,000 UNIT/ML VIAL 5000 UNIT SUBCUT ×2 (08:06→19:44)
[2018-04-13] MEDS: SODIUM CHLORIDE 0.45% 1,000 ML 100 ML IV ×2 (08:06→19:43)
--- NOTE | 2018-04-13 09:52 | PC.NURSE ---
Addendum entered by Lakisha Chavez R.N. 04/13/18 12:46: Dr garrison on floor and notified about abd wound and the sound of bubbles and air moving when pt coughing, no new orders. Original Note: Day Shift Pt is alert able to make needs known forgetful. Pt reports his pain is 6/10 medicated per emar. denies any nausea and + Flatus, tolerated breakfast. Dressing to middle upper abdomen pt had been itching at it and sides pealing up, educated on risks and benefits of keeping wound clean and dressing on. noted to have scant amount of purulent drainage and noted when pt coughs that it bubbles and you can hear air moving. Call light within reach and bed alarm for safety
--- NOTE | 2018-04-13 11:10 | P.PN_ITS ---
Subjective Date Patient Seen: 04/13/18 Interval history: Her to vendor Veronica is a 63-year-old male with a history of metastatic adenocarcinoma of the lung who presented with a partial small bowel obstruction and abdominal wall cellulitis. Patient had low-grade fever to 100.2 last evening. He continues to have minimal abdominal pain. His diet was advanced to a regular diet. He tolerated this without difficulty. The patient is passing flatus. He has had no BM today. Exam Vital Signs (past 8 hours): - 04/13/18 04:14 04/13/18 07:00 04/13/18 08:00 Temperature 98.6 F 99.5 F Pulse Rate 82 93 H Respiratory Rate 19 18 Blood Pressure 110/64 94/66 Pulse Oximetry 97 96 95 Oxygen Delivery Method Room Air Oxygen Flow Rate 0 Narrative Exam Narrative: Pleasant male in No acute distress Lungs: Clear to auscultation Cardiac exam: Regular rate rhythm normal S1-S2 Abdomen: Soft, mildly tender, no board-like rigidity. Normoactive bowel tones. There is mild exudate expressed from the prior PEG site. Extremities: No edema Objective Labs Result Diagrams: 04/13/18 05:45 04/13/18 05:45 Labs: Laboratory Results - last 24 hr 04/13/18 04/13/18 05:45 05:45 WBC 6.0 RBC 4.62 Hgb 13.9 Hct 40.1 L MCV 86.8 MCH 30.0 MCHC 34.5 RDW 16.8 H Plt Count 270 Neut % (Auto) 68.4 Lymph % (Auto) 16.5 L [place] % (Auto) 12.8 Eos % (Auto) 1.1 L Baso % (Auto) 1.2 Neut # (Auto) 4100 Sodium 132 L Potassium 4.0 Chloride 101 Carbon Dioxide 22 BUN 17 Creatinine 0.90 Estimated GFR > 60.0 BUN/Creatinine Ratio 18.9 Glucose 89 Calcium 8.6 Assessment & Plan (1) Cellulitis of abdominal wall: Problem details: Cellulitis of the abdominal wall, present on admission, acute Patient continues to have low-grade fever. Will continue levofloxacin at this time. Current visit: Yes Status: Acute (2) Hyponatremia: Problem details: Hyponatremia is acute, will continue to monitor closely. We will obtain a serum osmolality and consider free water restriction. Current visit: Yes Status: Acute (3) Depression: Problem details: Depression, chronic will continue home medication Current visit: Yes Status: Acute (4) GERD (gastroesophageal reflux disease): Problem details: GERD, chronic will continue PPI Current visit: Yes Status: Acute (5) COPD (chronic obstructive pulmonary disease): Problem details: COPD, chronic continue his usual home regimen Qualifiers: COPD type: unspecified COPD Chronic bronchitis type: Emphysema type: Qualified Code(s): J44.9 - Chronic obstructive pulmonary disease, unspecified Current visit: No Status: Acute (6) Partial small bowel obstruction: Problem details: Partial small-bowel obstruction, present on admission, resolving nicely Will continue with regular diet and monitor serial exam Current visit: Yes Status: Acute (7) Itching: Problem details: Continue Benadryl for chronic pruritus. Current visit: No Status: Acute (8) Lung cancer, primary, with metastasis from lung to other site: Problem details: Patient with metastatic adenocarcinoma of the lung, present on admission, chronic patient has mets to T3 and T4 of the thoracic spine Qualifiers: Laterality: Current visit: No Status: Acute Plan: Assessment/Plan Narrative: Will continue to monitor the patient closely discharge home when afebrile Quality VTE Deep Vein Thrombosis/Pulmonary Embolism Present on Admission: No
--- NOTE | 2018-04-13 12:39 | CM.DPC ---
DCP Cont: Patient is remaining here another day secondary to fever. Plan is for patient to return home when stable, for he has support of spouse and caregiver at home. P: DCP to continue to follow. Could potentially be discharged tomorrow if a-febrile. Aicha Ortiz RN/Retail Store Manager
--- NOTE | 2018-04-13 15:17 | CM.DPC ---
DCP Cont: Reached out to family/caregiver, who lives with patient, Lakisha. She stated that she is his POA. Stated that he also resides with his ex-, cyndi, as well. Stated that they are in the process of making house easier for patient, attempting to get rid of any clutter/barriers, in the home. She stated that patient is getting ready to see a new provider at [facility], on , as he has an appt on the , to get established with provider. As of yet, no provider, but does go to [facility], as well as stove mounter. Will continue to be available for family support if they have any questions. P: DCP to follow closely. Goal is for home when medically stable. Aicha Ortiz RN/Director Of Construction
[2018-04-13] MEDS: levoFLOXacin 500 MG/100 ML PIGGYBACK 100 MG IV (15:55)
--- NOTE | 2018-04-13 15:57 | P.PN_ITS ---
Subjective Date Patient Seen: 04/13/18 Time Patient Seen: 10:52 Interval history: Mr. Davlia is in reasonable spirits today. He denies any abdominal pain and reports that he continues to pass flatus and have some bowel function. He has been tolerating a regular diet. The lesion at his old PEG tube site is remarkably improved. Cultures grew MSSA. Unfortunately, it can be seen to bubble when he coughs deeply. He currently has no evidence of bowel obstruction. Exam Vital Signs (past 8 hours): - 04/13/18 08:00 04/13/18 11:40 Temperature 99.5 F 99.6 F Pulse Rate 93 H 88 Respiratory Rate 18 24 Blood Pressure 94/66 109/66 Pulse Oximetry 95 96 Oxygen Delivery Method Room Air Oxygen Flow Rate 0 Narrative Exam Narrative: Abdomen is soft, nontender, active bowel sounds. Peg tube site in the left upper quadrant is without erythema. Objective Labs Result Diagrams: 04/13/18 05:45 04/13/18 05:45 Labs: Laboratory Results - last 24 hr 04/13/18 04/13/18 05:45 05:45 WBC 6.0 RBC 4.62 Hgb 13.9 Hct 40.1 L MCV 86.8 MCH 30.0 MCHC 34.5 RDW 16.8 H Plt Count 270 Neut % (Auto) 68.4 Lymph % (Auto) 16.5 L [place] % (Auto) 12.8 Eos % (Auto) 1.1 L Baso % (Auto) 1.2 Neut # (Auto) 4100 Sodium 132 L Potassium 4.0 Chloride 101 Carbon Dioxide 22 BUN 17 Creatinine 0.90 Estimated GFR > 60.0 BUN/Creatinine Ratio 18.9 Glucose 89 Calcium 8.6 Assessment & Plan Plan: Assessment/Plan Narrative: Unfortunate gentleman with stage IV lung cancer who was admitted with bowel obstruction. His symptoms of obstruction have resolved. 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 Due to his underlying disease, he is not a surgical candidate. I recommend covering the wound with xeroform gauze and a dry dressing. The fistula may close if the patients nutritional status improves. I'm happy to be available if I can be of further assistance. Quality VTE Deep Vein Thrombosis/Pulmonary Embolism Present on Admission: No
[2018-04-13] MEDS: LEVOTHYROXINE INJ 100 MCG/5 ML VIAL 62.5 MCG IV (16:57)
[2018-04-13] MEDS: OXYCODONE 5 MG/5 ML ORAL SOLUTION 10 MG PO ×2 (18:34→22:12)
[2018-04-14 00:42] VITALS: BP 115/73; PULSE 86; RESP 16; TEMP 37.3; O2SAT 97
[2018-04-14 00:45] VITALS: O2SAT 97
[2018-04-14] MEDS: HYDROMORPHONE 1 MG INJ IV (00:48)
[2018-04-14] MEDS: OXYCODONE 5 MG/5 ML ORAL SOLUTION 10 MG PO ×3 (03:06→11:48)
[2018-04-14 04:37] VITALS: BP 110/72; PULSE 86; RESP 16; TEMP 37; O2SAT 96
[2018-04-14] MEDS: SODIUM CHLORIDE 0.45% 1,000 ML 100 ML IV (05:59)
[2018-04-14 07:40] VITALS: O2SAT 96
[2018-04-14] MEDS: HEPARIN 5,000 UNIT/ML VIAL 5000 UNIT SUBCUT (07:50)
[2018-04-14] MEDS: NICOTINE 21 MG PATCH TOP (07:51)
--- NOTE | 2018-04-14 07:53 | P.DS_ITS ---
History of Present Illness Date Patient Seen: 04/14/18 Chief complaint: abd pain Narrative: Yash Davila is a 63-year-old male with past medical history significant for depression, GERD, COPD and right upper lung metastatic adenocarcinoma previously on nivolumab until 02/23/2018 which was discontinued for concern of pneumonitis treated with glucocorticoid taper now off prednisone who presented for mid abdominal pain. The patient reports that for the last 4-5 days he has had mid abdominal pain that has progressively worsened. It has been a +9/10 in severity at its worst. The pain does not radiate. He denies any associated symptoms including nausea, vomiting, fever, chills, diarrhea or constipation. He has chronic shortness of breath with activity and cough with foul smelling phlegm. He denies shortness of breath today at rest. He had a headache yesterday which has resolved. He has a good appetite but has not been eating much due to the pain. He reports he erythema and drainage around a previous PEG tube scar. The ED physician also appreciated drainage around previous PEG tube scar and spent a wound culture. CT abdomen and pelvis with contrast demonstrated low grade distal small bowel obstruction with transition point in right lower quadrant abdomen possibly secondary to adhesion and scarring at old PEG tube insertion site with no drainable fluid collection or subcutaneous emphysema. General surgery, Dr. Mijares, was consulted by ED physician for possible drainage and infection from previous PEG tube scar and low-grade partial SBO. 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 CT of the abdomen and pelvis pelvis confirmed a partial small-bowel obstruction. Patient was seen in consultation by Dr. dennis on. He was made NPO Given IV fluids and pain medication. His abdominal symptoms improved. He was able to pass flatus. His diet was advanced. He ultimately had a bowel movement. Patient also had abdominal wall cellulitis. He had a fistula at the site of his prior PEG tube. Given his debilitation it was felt that antibiotics and wound care would be appropriate. Patient made gradual improvement in symptomatology. He was deemed appropriate for discharge home. Status at Discharge Functional status at discharge: independent ambulation Overall status at discharge: patient is back to baseline Time Spent with Patient Less than 30 minutes Exam Vital Signs (past 8 hours): - 04/14/18 00:42 04/14/18 00:45 04/14/18 04:37 Temperature 99.1 F 98.6 F Pulse Rate 86 86 Respiratory Rate 16 16 Blood Pressure 115/73 110/72 Pulse Oximetry 97 97 96 Oxygen Delivery Method Room Air Oxygen Flow Rate 0 Narrative Exam Narrative: Ill appearing gentleman resting in bed in no obvious distress Lungs: Decreased breath sounds bilaterally with occasional scattered rhonchi Cardiac exam: Regular rate rhythm normal S1-S2 Abdomen: Soft nontender nondistended with normoactive bowel tones no board- like rigidity or palpable masses Extremities: No edema Objective Labs Result Diagrams: 04/13/18 05:45 04/13/18 05:45 Discharge Plan Discharge Plan Discharge Problem: Partial small bowel obstruction Patient Disposition: Home Discharge Med Rec/Prescriptions Prescriptions: New doxycycline hyclate 100 mg Tablet 100 mg PO BID Qty: 20 RF: 0 Continue [DISABLED PARKING ] 1 ea X1 Qty: 1 RF: 0 acetaminophen 650 MG tablet extended release 650 mg PO Q8H Qty: 30 RF: 0 citalopram [Celexa] 20 mg Tablet 20 mg PO DAILY Qty: 90 RF: 1 pregabalin [Lyrica] 50 mg Capsule 50 mg PO TID Qty: 90 RF: 1 lactulose [Enulose] 10 gram/15 mL Solution 20 g PO TID PRN (Reason: constipation, severe) Qty: 120 RF: 1 hydroxyzine HCl 25 MG tablet 25 - 50 mg PO Q6H PRN (Reason: Itching) Qty: 60 RF: 0 oxycodone 10 mg Tablet 10 mg PO Q4-6H PRN (Reason: cancer pain) Qty: 60 RF: 0 tramadol 50 mg Tablet 50 mg PO BID Qty: 40 RF: 0 albuterol sulfate [ProAir HFA] 90 MCG/PUFF HFA aerosol inhaler 1 puff INH Q6H RF: 0 esomeprazole magnesium 20 MG capsule,delayed release(DR/EC) 20 mg PO DAILY RF: 0 sennosides [senna] 8.6 mg Tablet 17.2 mg PO BEDTIME 60 Days RF: 0 ipratropium-albuterol 0.5 mg-3 mg(2.5 mg base)/3 mL Solution For Nebulization 3 ml INH Q4HR PRN (Reason: sob/wheezing) Qty: 40 RF: 0 polyethylene glycol 3350 17 gram Powder In Packet 17 gm PO BID 60 Days RF: 0 megestrol 400 mg/10 mL (10 mL) Suspension 400 mg PO DAILY 60 Days RF: 0 prednisone 10 mg tablet 10 mg PO DIRECTED Qty: 40 RF: 0 famotidine [Pepcid] 20 mg tablet 20 mg PO BID 42 Days Qty: 84 RF: 0 sucralfate [Carafate] 1 gram tablet 1 gram PO QACHS Qty: 180 RF: 0 levothyroxine 125 mcg Tablet 125 mcg PO DAILY RF: 0 Discontinued levofloxacin [Levaquin] 750 mg tablet 750 mg PO DAILY Qty: 7 RF: 0 Provider Discharge Instructions Diet: Regular Activity: as tolerated Skin/Wound/Dressing Care Dressing: Continue current dressing changes daily Discharge Data Attending Provider: Brandi Wood Admit Date/Time: 04/11/18 13:56 Quality VTE Deep Vein Thrombosis/Pulmonary Embolism Present on Admission: No
[2018-04-14] MEDS: DOXYCYCLINE HYCLATE 100 MG TABLET PO (07:55)
[2018-04-14 08:00] VITALS: BP 113/58; PULSE 100; RESP 20; TEMP 36.2; O2SAT 96
[2018-04-14 09:25] VITALS: O2SAT 95
--- NOTE | 2018-04-14 12:17 | PC.NURSE ---
patient's arrived to take patient home. provided patient w/ 4 2x2 sized allevyn boarder foam drsg, a pack of 10 4x4 gauze, and ns. with instructions for cleaning and changing drsg. instructed to [facility] prescription at [facility] home. script was electronically sent. instructed to call his oncologist when he gets home to set up a f/u appt. patient and spouse confirm understanding, this financial writer escorted patient to vehicle by wc with all belongings and paperwork.
== END 2018-04-14 12:15 | disposition home or self-care (01) | DRG 388 ==
LOC: ED 13:50 → AC 14:13
PROVIDERS: Internal Medicine; Surgery; Admitting Provider Internal Medicine; Emergency Provider Emergency Medicine; Visit Provider Internal Medicine
DX: K56.51 Intestinal adhesions [bands], with partial obstruction (principal); E43 Unspecified severe protein-calorie malnutrition; Z68.1 Body mass index [BMI] 19.9 or less, adult; C34.11 Malignant neoplasm of upper lobe, right bronchus or lung; L03.311 Cellulitis of abdominal wall; C79.51 Secondary malignant neoplasm of bone; E87.1 Hypo-osmolality and hyponatremia; K63.2 Fistula of intestine; K94.29 Other complications of gastrostomy; F32.9 Major depressive disorder, single episode, unspecified; K21.9 Gastro-esophageal reflux disease without esophagitis; J44.9 Chronic obstructive pulmonary disease, unspecified; F17.210 Nicotine dependence, cigarettes, uncomplicated; E03.9 Hypothyroidism, unspecified; L29.9 Pruritus, unspecified; B95.7 Other staphylococcus as the cause of diseases classified elsewhere; G62.9 Polyneuropathy, unspecified
CPT/HCPCS: 36591; 74177; 80048; 80053; 81001; 81003; 83690; 85025; 87070; 87077; 87147; 87186; 87205; 94640; 94760; 94762; 96361; 96374; 96375; 96376; 99231; 99252; 99284; 99285; 99406; J1170; J1644; J1956; J2405; J7050; Q9967

== ENCOUNTER → 2018-04-19 15:25 | Outpatient (CLI) | payer OTHER, MEDICAID, SELFPAY ==
[2018-04-11 14:12] VITALS: BMI 19.3
== END ==
PROVIDERS: Family Provider Internal Medicine Hematology & Oncology; Visit Provider Internal Medicine Critical Care Medicine
DX: J98.4 Other disorders of lung (principal)
CPT/HCPCS: 87070; 87102; 87116; 87205

== ENCOUNTER 2018-04-22 00:27 | Emergency (ER) | payer OTHER, MEDICAID, SELFPAY ==
[2018-04-11 14:12] VITALS: BMI 19.3
[2018-04-22 00:41] VITALS: BP 140/83; PULSE 115; RESP 16; TEMP 36.7; O2SAT 94; BMI 19.9
[2018-04-22 01:15] VITALS: BP 140/83; PULSE 93; RESP 16; TEMP 36.7; O2SAT 94; BMI 19.9
[2018-04-22] MEDS: MAG HYDROX/ALUMINUM/SIMETH SUS 20 ML, LIDOCAINE VISCOUS 2% 15 ML PO (02:34)
--- NOTE | 2018-04-22 02:38 | DI.RAD.S_ITS ---
PROCEDURE: XR CHEST 2V INDICATIONS: hemoptysis TECHNIQUE: 2 views of the chest were acquired. COMPARISON: [facility], CT, CT CHEST WO CON, 03/09/2018, 15:10. [facility], CR, XR CHEST 1V, 03/18/2018, 15:41. FINDINGS: Surgical changes and devices: Unchanged cervical spine fixation hardware and left chest port Lungs and pleura: No definite new focal consolidation or progressive lucency within the right upper lobe since 03/18/18 there is air-fluid level projecting in this region. Background diffuse interstitial disease and scarring is unchanged. Chronic multiple left-sided rib fractures. Lungs appear hyperinflated with flattening of the diaphragm. Mediastinum: Mediastinal contours are normal. Heart size is normal. Bones and chest wall: No suspicious bony abnormalities. Soft tissues appear unremarkable. IMPRESSION: Redemonstration of right upper lobe presumed loculated hydropneumothorax. Overall, the appearance is grossly stable since advertising representative image from 03/09/18 although more conspicuous since the most recent chest radiograph. Therefore, recommend continued short interval radiographic surveillance No definite new consolidation. Unchanged background scarring/atelectasis Dictated by: Esau Kidd M.D. on 04/22/2018 at 7:54 Approved by: Esau Kidd M.D. on 04/22/2018 at 7:57
[2018-04-22 02:45] VITALS: BP 138/77; PULSE 93; O2SAT 94
[2018-04-22] MEDS: TRAMADOL 50 MG TABLET PO (02:48)
[2018-04-22] MEDS: OXYCODONE/ACETAMINOPHEN 5/325 TABLET 1 TAB PO (02:48)
--- NOTE | 2018-04-22 03:06 | PC.NURSE ---
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 Reports hx of right upper lung metastatic adenocarcinoma dx in 2016. Pt able to speak in full sentances denies new pain states has chronic pain to right lung area.
--- NOTE | 2018-04-22 16:20 | ED_ITS ---
HPI - SOB/Dyspnea General Chief Complaint: Shortness of Breath/Dyspnea Stated Complaint: COUGHING UP BLOOD HAS CANCER Time Seen by Provider: 04/22/18 02:38 Source: patient and family Mode of arrival: ambulatory Limitations: no limitations History of Present Illness Patient comes to the emergency department after coughing up small amounts of pinkish neville sputum. He states his sputum has never been this color, and that he was told if he ever coughs up blood, he should go to the emergency department. Patient is battling lung cancer at this time, and is also thought to have a chronic empyema. He has been seen on only Oncology, but a pilot can router, and is scheduled for a bronchoscopy. He has been on immunotherapy for his cancer, and states the cancer has been responding well. However, they have decided to hold the immunotherapy until the issue with the empyema and is figured out. Patient states that this has been going on for months, and he has been on 1 course of antibiotics after another. He states that his pilot can router has decided to stop all antibiotics to try to get a sense of what is growing in his right upper lung. Patient states he thinks he may have had a fever earlier, but otherwise, feels about as well as he usually does. He denies feeling short of breath, and denies any change in his cough. He states that now, the pinkish sputum has mostly cleared. He has not coughed up any geremias blood. Related Data Home Medications Medication Instructions Recorded Confirmed albuterol sulfate [ProAir HFA] 1 puff INH Q6H 03/18/18 04/11/18 esomeprazole magnesium 20 mg PO DAILY 03/18/18 04/11/18 levothyroxine 125 mcg PO DAILY 04/11/18 04/11/18 Previous Rx's Medication Instructions Recorded [DISABLED PARKING ] 1 ea X1 #1 ea 04/29/16 acetaminophen 650 mg PO Q8H #30 tab 02/16/17 citalopram [Celexa] 20 mg PO DAILY #90 tab 10/29/17 lactulose [Enulose] 20 g PO TID PRN #120 ml 01/20/18 famotidine [Pepcid] 20 mg PO BID 42 Days #84 tab 03/20/18 ipratropium-albuterol 3 ml INH Q4HR PRN #40 ml 03/20/18 megestrol 400 mg PO DAILY 60 Days ml 03/20/18 polyethylene glycol 3350 17 gm PO BID 60 Days each 03/20/18 sennosides [senna] 17.2 mg PO BEDTIME 60 Days tab 03/20/18 sucralfate [Carafate] 1 gram PO QACHS #180 tab 03/20/18 doxycycline hyclate 100 mg PO BID #20 tab 04/14/18 hydroxyzine HCl 25 - 50 mg PO Q6H PRN #60 tab 04/21/18 oxycodone 10 mg PO Q4-6H PRN #60 tab 04/21/18 pregabalin [Lyrica] 50 mg PO TID #90 cap 04/21/18 tramadol 50 mg PO BID #40 tab 04/21/18 Allergies Allergy/AdvReac Type Severity Reaction Status Date / Time aspirin [ASPIRIN] AdvReac Mild NAUSEA Verified 04/22/18 00:41 Review of Systems Constitutional Denies chills, Denies fever(s), Denies lethargy and Denies weakness Eyes Denies change in vision, Denies eye discharge, Denies irritation and Denies loss of vision ENT Ears, Nose, Mouth, and Throat: Denies change in voice, Denies neck pain and Denies sore throat Cardiovascular Denies chest pain, Denies irregular heart rhythm, Denies lightheadedness, Denies palpitations, Denies dyspnea, Denies dyspnea on exertion and Denies orthopnea Respiratory Reports cough, Reports hemoptysis, Denies dyspnea, Denies dyspnea on exertion and Denies wheezing Gastrointestinal Gastrointestinal: Denies abdominal pain, Denies change in bowel habits, Denies diarrhea, Denies nausea and Denies vomiting Genitourinary Denies hematuria, Denies flank pain, Denies urinary incontinence and Denies urinary urgency Musculoskeletal Denies neck pain Integumentary/Breasts Denies pruritus, Denies erythema, Denies rash and Denies wounds Neurologic Denies confusion, Denies loss of vision and Denies weakness Psychiatric Denies anxiety, Denies confusion, Denies depression, Denies homicidal ideation and Denies suicidal ideation Endocrine Denies palpitations Hematologic/Lymphatic Denies easy bruising Allergic/Immunologic Denies wheezing PFSH Medical History DVT of upper extremity (deep vein thrombosis) (Acute) Depression (Acute) GERD (gastroesophageal reflux disease) (Acute) PEG (percutaneous endoscopic gastrostomy) adjustment/replacement/removal (Acute) Peripheral neuropathy (Acute) COPD (chronic obstructive pulmonary disease) (Chronic) Hypothyroid (Chronic) Lung cancer, primary, with metastasis from lung to other site (Chronic) Surgical History History of lung biopsy (Acute) Family History Mother Congestive heart failure Father Unknown family medical history Social History household members: spouse and caregiver Smoking Status: Current every day smoker alcohol intake: former Exam Initial Vital Signs Initial Vital Signs: Vital Signs Temperature 98.0 F 04/22/18 00:41 Pulse Rate 115 H 04/22/18 00:41 Respiratory Rate 16 04/22/18 00:41 Blood Pressure 140/83 04/22/18 00:41 Pulse Oximetry 94 04/22/18 00:41 Const General: cooperative and well developed Nutritional Appearance: well nourished Orientation: alert, awake, oriented x3 and not confused [facility] Head: normocephalic and atraumatic Ears: external ears normal and TM's normal bilaterally Nose: external nose normal and No nasal discharge Face and sinus: sinuses nontender, face symmetric, no sinus tenderness and No dry mucous membranes Mouth: oral mucosae normal and moist mucous membranes Teeth and gingiva: dentition normal Throat: tonsils normal and uvula midline Eyes General: appearance normal, both eyes and all related structures Eyelids: eyelids normal Conjunctivae: conjunctivae normal Sclera: sclerae normal Pupils: PERRL EOM: EOM intact bilaterally Neck Neck: normal visual inspection, trachea midline, No lymphadenopathy, No midline deformity and No JVD Lymphatic: No lymphedema Chest Chest: normal inspection of the chest Resp Effort & Inspection: normal respiratory effort, able to speak in complete sentences, no respiratory distress and no use of accessory muscles Auscultation: clear to auscultation bilaterally, no rales, no rhonchi and no wheezes Cardio Rate: regular rate Rhythm: regular rhythm Heart Sounds: no click, no gallops, no murmurs and no rubs Pulses: normal peripheral pulses GI Inspection: non-distended Palpation: soft, no hepatosplenomegaly, No guarding, No pulsatile mass and No tender Auscultation: normal bowel sounds Back/Spine/Pelvis Back: No CVA tenderness Cervical Spine: cervical ROM normal and No pain with cervical ROM Thoracic/Lumbar Spine: thoracic and lumbar spine normal to inspection Skin General: no rashes or lesions noted, No jaundice and No petechiae Neuro General: alert, oriented x3, gait normal and no focal motor deficits Speech: speech normal Extrem General: full ROM, no clubbing, cyanosis or edema, no pedal edema and no calf tenderness Psych Appearance: well kempt Mental Status: mental status grossly normal Attitude: cooperative Thought Content: normal and suicidality Judgment: judgment good Course Course Narrative: I did view the sputum that the patient had coughed up, which he reported to be blood tinged. This was a mildly pinkish neville, mucousy substance. I explained to the patient that this does appear to be very mildly blood-tinged, and the patient had noted that even this is now resolved. Patient 's chest x-ray did not show anything new. He has been followed by pulmonology and Oncology, and will continue to do so. It is not surprising that he has some degree of blood tinging to his sputum intermittently, given his comorbidities and chronic cough. However, I did explain to him that if he begins to cough up a quarter cup or more of geremias blood and 1 coughing session, he should return to the emergency department for further evaluation, especially if the bleeding does not resolve between coughing fits. Patient expresses understanding. At this point, he should continue to follow the recommendations of his pilot can router, and await further guidance in that regard. Orders Ordered: Discontinued Medications Al Hydrox/Mg Hydrox/Simethicone 20 ml/ Lidocaine HCl 15 ml 0 ml PO NOW ONE Stop: 04/22/18 02:31 Last Admin: 04/22/18 02:34 Dose: 35 ml Oxycodone/Acetaminophen (Percocet 5/325) 1 tab PO NOW ONE Stop: 04/22/18 02:47 Last Admin: 04/22/18 02:48 Dose: 1 tab Tramadol HCl (Ultram) 50 mg PO NOW ONE Stop: 04/22/18 02:46 Last Admin: 04/22/18 02:48 Dose: 50 mg MDM - SOB/Dyspnea Medical Records Attestation: I reviewed the patient's medical records. Imaging Data Chest x-ray: Attestation: I personally reviewed and interpreted this imaging study as follows: My impression: Stable disease. Radiologist's impression: [address] [address] XRay Report Signed Patient: Yash Davila DMR#: [id number] : 5Acct:[id number] Age/Sex: 63 / MDate of Service: 04/22/18 Loc: ED Accession Number: [id number] Procedure: XR chest 2V Ordering Provider: Kalina Davenport MD PROCEDURE: XR CHEST 2V INDICATIONS: hemoptysis TECHNIQUE: 2 views of the chest were acquired. COMPARISON: [facility], CT, CT CHEST WO CON, 03/09/2018, 15:10. [facility], CR, XR CHEST 1V, 03/18/2018, 15:41. FINDINGS: Surgical changes and devices: Unchanged cervical spine fixation hardware and left chest port Lungs and pleura: No definite new focal consolidation or progressive lucency within the right upper lobe since 03/18/18 there is air-fluid level projecting in this region. Background diffuse interstitial disease and scarring is unchanged. Chronic multiple left-sided rib fractures. Lungs appear hyperinflated with flattening of the diaphragm. Mediastinum: Mediastinal contours are normal. Heart size is normal. Bones and chest wall: No suspicious bony abnormalities. Soft tissues appear unremarkable. IMPRESSION: Redemonstration of right upper lobe presumed loculated hydropneumothorax. Overall, the appearance is grossly stable since slotter operator image from 03/09/18 although more conspicuous since the most recent chest radiograph. Therefore, recommend continued short interval radiographic surveillance No definite new consolidation. Unchanged background scarring/atelectasis Dictated by: Esau Kidd M.D. on 04/22/2018 at 7:54 Approved by: Esau Kidd M.D. on 04/22/2018 at 7:57 Discharge Plan Departure Patient Disposition: Home Clinical Impression: Cough with hemoptysis, Lung cancer Discharge Date/Time: 04/22/18 03:27 Interventions: ED Discharge Assessment Last Done: 04/22/18 03:27 Instructions: DI for Hemoptysis Activity Restrictions/Additional Instructions: Your x-ray is minimally changed from previous x-rays. There is no evidence of pneumonia. Your bleeding is very mild, and is to be expected to some degree with your chronic cough and your underlying cancer and infection. If you begin to cough up 1/4 cup or more of bright red blood at a time, you should return to the emergency department for recheck. Prescriptions: No Action [DISABLED PARKING ] 1 ea X1 Qty: 1 RF: 0 acetaminophen 650 MG tablet extended release 650 mg PO Q8H Qty: 30 RF: 0 citalopram [Celexa] 20 mg Tablet 20 mg PO DAILY Qty: 90 RF: 1 lactulose [Enulose] 10 gram/15 mL Solution 20 g PO TID PRN (Reason: constipation, severe) Qty: 120 RF: 1 hydroxyzine HCl 25 MG tablet 25 - 50 mg PO Q6H PRN (Reason: Itching) Qty: 60 RF: 0 oxycodone 10 mg Tablet 10 mg PO Q4-6H PRN (Reason: cancer pain) Qty: 60 RF: 0 tramadol 50 mg Tablet 50 mg PO BID Qty: 40 RF: 0 pregabalin [Lyrica] 50 mg Capsule 50 mg PO TID Qty: 90 RF: 1 albuterol sulfate [ProAir HFA] 90 MCG/PUFF HFA aerosol inhaler 1 puff INH Q6H RF: 0 esomeprazole magnesium 20 MG capsule,delayed release(DR/EC) 20 mg PO DAILY RF: 0 sennosides [senna] 8.6 mg Tablet 17.2 mg PO BEDTIME 60 Days RF: 0 ipratropium-albuterol 0.5 mg-3 mg(2.5 mg base)/3 mL Solution For Nebulization 3 ml INH Q4HR PRN (Reason: sob/wheezing) Qty: 40 RF: 0 polyethylene glycol 3350 17 gram Powder In Packet 17 gm PO BID 60 Days RF: 0 megestrol 400 mg/10 mL (10 mL) Suspension 400 mg PO DAILY 60 Days RF: 0 famotidine [Pepcid] 20 mg tablet 20 mg PO BID 42 Days Qty: 84 RF: 0 sucralfate [Carafate] 1 gram tablet 1 gram PO QACHS Qty: 180 RF: 0 levothyroxine 125 mcg Tablet 125 mcg PO DAILY RF: 0 doxycycline hyclate 100 mg Tablet 100 mg PO BID Qty: 20 RF: 0 Referrals: Thomas Young MD [Family Provider] -
== END 2018-04-22 03:27 | disposition home or self-care (01) ==
PROVIDERS: Emergency Provider Emergency Medicine; Family Provider Internal Medicine Hematology & Oncology
DX: R04.2 Hemoptysis (principal); C34.90 Malignant neoplasm of unspecified part of unspecified bronchus or lung
CPT/HCPCS: 71046; 99282; 99283

== ENCOUNTER → 2018-11-21 13:25 | Outpatient (CLI) | payer OTHER, MEDICAID, SELFPAY ==
[2018-04-11 14:12] VITALS: BMI 19.3
--- NOTE | 2018-11-21 14:04 | DI.CT.S_ITS ---
PROCEDURE: CT CHEST W CON INDICATIONS: lung cancer follow up TECHNIQUE: After the administration of intravenous contrast, 5 mm thick sections acquired from the pulmonary apices to the posterior costophrenic angles. 1 mm axial lung, 5 mm thick coronal and sagittal reformats and 7 mm axial MIP were acquired. For radiation dose reduction, the following was used: automated exposure control, adjustment of mA and/or kV according to patient size. COMPARISON: None. FINDINGS: Image quality: Excellent. Lungs: Right upper lobe volume and parenchymal loss. The large cavitary lesion occupying the majority of the right upper lobe is not significant change in size or configuration. There is mild decreased debris layering in the posterior aspect of the cavitary compared to 07/07/2018, and substantially decreased nodularity compared to 03/09/2018. On the remote PET/CT there was a large FDG avid mass in the right upper lobe. The moderate upper lobe dominant centrilobular emphysema. There is hyperinflation of the left lung. Mild scarring in the right lower lobe, unchanged. Stable mild scattered groundglass opacities at the left apex likely due to scarring. No new or enlarging pulmonary nodules identified. Pleura: No pleural effusions or pneumothorax. Airways: Scattered areas of bronchial wall thickening and minimal bronchiectasis. Secretions in the left mainstem bronchus. A few areas of distal mucous plugging. Dilation of the trachea. Severe narrowing of the right superior bronchus, slightly increased. Mediastinum: Rightward shift to to volume loss. Heart size is normal. No pericardial effusion. Coronary artery calcifications. Right lower paratracheal node measuring 0.9 x 0.9 cm, (2/23), previously 1.1 x 0.8 cm. This is also similar in size to the remote PET/CT scan did not demonstrate increased FDG of avidity. Thoracic aorta and central pulmonary arteries are normal in size. No central pulmonary embolism. Left-sided port with the catheter tip terminating in the distal left subclavian vein near the confluence. Esophagus is normal in caliber. No hiatal hernia. Bones and chest wall: Stable pathologic fractures involving the right posterior 4-6th ribs. Bilateral accessory cervical ribs. Cervical spine ACDF partially visualized at C6. Stable compression fracture at T7. No axillary or supraclavicular adenopathy by size criteria. Thyroid gland is not well seen. Abdomen: Upper abdominal bowel loops are normal in caliber. No adrenal nodule. Left kidney inferior pole simple cyst. IMPRESSION: Overall stable exam. Slight interval decrease in the debris within the right upper lobe cavitary lesion. No new metastatic disease. Dictated by: Chucho Bolivar M.D. on 11/21/2018 at 15:46 Approved by: Chucho Bolivar M.D. on 11/21/2018 at 16:12
== END ==
PROVIDERS: Visit Provider Internal Medicine Hematology & Oncology
DX: C34.90 Malignant neoplasm of unspecified part of unspecified bronchus or lung (principal)
CPT/HCPCS: 71260; Q9967

== ENCOUNTER → 2019-01-03 10:37 | Outpatient (CLI) | payer OTHER, MEDICAID, SELFPAY ==
[2018-04-11 14:12] VITALS: BMI 19.3
--- NOTE | 2019-01-03 10:40 | DI.MRI.S_ITS ---
PROCEDURE: MR HEAD/BRAIN WO/W CON INDICATIONS: lung cancer, now with headache. TECHNIQUE: Noncontrast axial T1 spin echo, axial T2 fast spin echo, sagittal and axial FLAIR, coronal T2 fast spin echo, axial gradient echo, axial diffusion and ADC through the brain. After the administration of contrast, axial and coronal 3D VIBE or T1 spin echo with fat saturation through the brain. COMPARISON: [facility], MR, BRAIN W&WO CONTRAST, 02/23/2017, 19:19. FINDINGS: Image quality: Excellent. CSF Spaces: Basal cisterns are patent. No extra-axial fluid collections. Ventricles are normal in size and shape. Brain: No midline shift. No intracranial bleeds or masses. No abnormal intracranial enhancement. The brainstem appears normal. Diffusion-weighted images demonstrate no acute ischemic insults. No chronic ischemic insults. Normal intravascular flow voids are present. Skull and face: Calvarial marrow is normal in signal. Orbits appear normal. Sinuses: Sinuses and mastoids appear clear. IMPRESSION: Unremarkable brain MRI with and without contrast. No evidence of acute stroke, hemorrhage, or mass. Dictated by: Joe Holbrook M.D. on 01/03/2019 at 12:08 Approved by: Joe Holbrook M.D. on 01/03/2019 at 12:10
== END ==
PROVIDERS: Visit Provider Internal Medicine Hematology & Oncology
DX: C34.90 Malignant neoplasm of unspecified part of unspecified bronchus or lung (principal); R51 Headache
CPT/HCPCS: 70553

== ENCOUNTER → 2019-01-11 09:49 | Outpatient (CLI) | payer OTHER, MEDICAID, SELFPAY ==
[2018-04-11 14:12] VITALS: BMI 19.3
--- NOTE | 2019-01-11 09:50 | DI.NM.S_ITS ---
PROCEDURE: OH BONE SCAN WHOLE BODY RADIOPHARMACEUTICAL: 23.0 mCi Tc-99m MDP IV. INDICATIONS: lung cancer, now with bone pain TECHNIQUE: Delayed whole-body scintigrams were obtained approximately 3-4 hours after intravenous injection of radiotracer. Anterior and posterior views were acquired from vertex to feet. Additional left and right oblique views of the thoracic cage were obtained. COMPARISON: [facility], CT, CT ABDOMEN PELVIS W CON, 04/11/2018, 12:09. [facility], CR, RIBS UNILATERAL WITH PA CXR, 03/03/2017, 1:50. [facility], NM, NM PET CT FUSION SKULL 2 THIGH, 09/29/2017, 15:50. [facility], CR, XR CHEST 2 VIEWS, 07/06/2018, 19:35. [facility], CT, CT CHEST WITH CONTRAST, 07/07/2018, 12:54. [facility], CT, CT CHEST W CON, 11/21/2018, 13:53. FINDINGS: Low level increased uptake in the posterior aspect of the right fourth, fifth and sixth ribs correlates with sclerotic lesions on CT, consistent with treated metastasis. There is a focal uptake in the lateral aspect of the left ninth rib. Low level increased uptake in the posterior aspect of the left seventh and eighth ribs correlates with old rib fractures seen on CT. There is mild, linear increased activity in the area of T7 vertebra, correlating with an old compression fracture. Subtle increased activity in the midsternum demonstrates no carotid abnormality on the comparison CT, likely degenerative in nature. Low level increased uptake in the area of the nasal ridge is uncertain clinical significance but most likely benign. No lesions are identified in calvarium, clavicles, scapulae, bony pelvis and visualized shafts of the long bones. There is low level increased uptake in cervical, thoracic and lumbar spine with distribution indistinguishable from degenerative disc and facet disease; early metastasis to spine could be obscured by degenerative changes. Degenerative/arthritic changes noted in shoulders bilaterally, elbows bilateral, wrists bilaterally, hands bilaterally, hips bilaterally and both feet. IMPRESSION: 1. Low level increased uptake in the right fourth, fifth and sixth ribs correlating with sclerotic bone lesions seen on CT, consistent with treated metastases. 2. Increased uptake in the T7 thoracic vertebra correlates with an old compression fracture. 3. Increased uptake in the left ninth rib laterally is most likely posttraumatic in nature. There are old left rib seventh and eighth fractures. Dictated by: Avelino Bernard M.D. on 01/11/2019 at 15:45 Approved by: Avelino Bernard M.D. on 01/11/2019 at 18:30
== END ==
PROVIDERS: Visit Provider Internal Medicine Hematology & Oncology
DX: C34.90 Malignant neoplasm of unspecified part of unspecified bronchus or lung (principal); M89.8X9 Other specified disorders of bone, unspecified site
CPT/HCPCS: 78306; A9503

== ENCOUNTER 2019-02-27 13:21 | Emergency (ER) | payer OTHER, MEDICAID, SELFPAY ==
[2018-04-11 14:12] VITALS: BMI 19.3
[2019-02-27 13:22] VITALS: BP 118/71; PULSE 87; RESP 18; TEMP 36.2; O2SAT 97; BMI 18.6
--- NOTE | 2019-02-27 13:56 | DI.RAD.S_ITS ---
PROCEDURE: XR THORACIC SPINE 3V INDICATIONS: pain, ca hx TECHNIQUE: 5 views of the thoracic spine were acquired. COMPARISON: [facility], CT, CT CHEST W CON, 11/21/2018, 13:53. [facility], CR, THORACIC SPINE 3 VIEWS, 02/16/2017, 12:50. FINDINGS: Bones: No previously unrecognized fractures or dislocations and the T7 moderate wedge compression fracture previously present is again seen. No new compression fractures found. The upper end plate of T6 and T5 and to a slight degree T4 appear mildly impacted, also previously present on CT scanning of the chest 11/21/18. No suspicious bony lesions. 12 pairs of ribs are noted, and appear intact where visualized. Soft tissues: No paravertebral stripe thickening. IMPRESSION: No new compression fracture found. Previously present superior endplate and wedge compression fractures seen at the middle and upper thirds of the thoracic spine are stable over time. Dictated by: Familia Clarke M.D. on 02/27/2019 at 14:43 Approved by: Familia Clarke M.D. on 02/27/2019 at 14:45
--- NOTE | 2019-02-27 13:56 | DI.RAD.S_ITS ---
PROCEDURE: XR SACRUM COCCYX MIN 2V INDICATIONS: pain hx ca TECHNIQUE: 3 views of the sacrum and coccyx acquired. COMPARISON: [facility], CR, XR LUMBAR SPINE 2-3V, 10/15/2017, 14:31. FINDINGS: Bones: No fractures or dislocations. No suspicious bony lesions. Degenerative changes at L5-S1 Soft tissues: Visualized bowel gas pattern is normal. No suspicious soft tissue densities. IMPRESSION: L5-S1 degenerative changes. No visualized acute fracture or dislocation. However, if clinical concern and/or pain persist, short interval imaging followup in 7-10 days is recommended, as occult injury cannot be definitively excluded. Dictated by: Alexandra Cast M.D. on 02/27/2019 at 14:29 Approved by: Alexandra Cast M.D. on 02/27/2019 at 14:30
--- NOTE | 2019-02-27 13:56 | DI.RAD.S_ITS ---
PROCEDURE: XR LUMBAR SPINE 2-3V INDICATIONS: pain, hx ca TECHNIQUE: 2 views of the lumbar spine were acquired. COMPARISON: [facility], CR, XR LUMBAR SPINE 2-3V, 10/15/2017, 14:31. FINDINGS: Bones: 5 byi-siw-uyphves vertebrae are present. There is multilevel minimal anterolisthesis. No vertebral body compression fractures. No suspicious bony lesions. Multilevel mild to moderate foraminal narrowing is present most notable at L2-3, L3-4. Moderate foraminal narrowing is present at L5-S1. Overall changes are stable. Soft tissues: Overlying bowel gas pattern is normal. No suspicious soft tissue calcifications. IMPRESSION: Degenerative changes as above, appearing stable compared to prior exam. Dictated by: Alexandra Cast M.D. on 02/27/2019 at 14:29 Approved by: Alexandra Cast M.D. on 02/27/2019 at 14:29
[2019-02-27] MEDS: CYCLOBENZAPRINE 10 MG TABLET PO (14:27)
[2019-02-27 14:30] VITALS: BP 115/88; PULSE 88; RESP 16; O2SAT 98
[2019-02-27] MEDS: LIDOCAINE PATCH 1 EACH ADH..PATCH TOP (15:02)
[2019-02-27] MEDS: OXYCODONE IR 5 MG TABLET 10 MG PO (15:04)
[2019-02-27 15:24] VITALS: BP 101/64; PULSE 93; RESP 14; O2SAT 93
--- NOTE | 2019-02-27 20:34 | ED.BACK ---
HPI - Back Pain/Injury <JOSE DE JESUS Singletary - Last Filed: 02/27/19 20:39> General Chief Complaint: Back Pain/Injury Stated Complaint: low back pain Time Seen by Provider: 02/27/19 13:43 Source: patient Mode of arrival: Ambulatory Limitations: no limitations History of Present Illness HPI Narrative: The patient is a 63-year-old male current smoker with history of lung cancer who presents with a chief complaint of back pain for the past week. He states he thinks it started after his great [employer] dog jumped on him. He denies any incontinence of bowel, incontinence of bladder saddle anesthesia. He states that he normally takes 10 mg of oxycodone as well as tramadol for his cancer pain. He denies any falls or other trauma other than the dog jumping on him. He denies any dysuria urgency or frequency. Related Data Home Medications Medication Instructions Recorded Confirmed albuterol sulfate [ProAir HFA] 1 puff INH Q6H 03/18/18 02/27/19 sertraline [Zoloft] 75 mg PO DAILY 06/23/18 02/27/19 [DISABLED PARKING ] 1 ea MISCELLANEOUS X1 02/27/19 02/27/19 Previous Rx's Medication Instructions Recorded acetaminophen 650 mg PO Q8H #30 tab 02/16/17 ipratropium-albuterol 3 ml INH Q4HR PRN #40 ml 03/20/18 esomeprazole magnesium 20 mg PO DAILY #90 cap 05/19/18 sucralfate 5 ml PO QID #500 ml 06/23/18 levothyroxine 150 mcg PO DAILY #90 tab 11/28/18 pregabalin [Lyrica] 50 mg PO TID #90 cap 12/06/18 oxycodone 10 mg PO Q4H PRN 30 Days #120 tab 02/21/19 tramadol 50 mg PO BID #40 tab 02/21/19 cyclobenzaprine 10 mg PO TID PRN #10 tab 02/27/19 Allergies Allergy/AdvReac Type Severity Reaction Status Date / Time aspirin [ASPIRIN] AdvReac Mild NAUSEA Verified 04/22/18 00:41 Review of Systems <JOSE DE JESUS Singletary - Last Filed: 02/27/19 20:39> Review of Systems Narrative: GENERAL: Denies chills, fatigue, malaise, fever, sweats. HEENT: Denies sinus pain, ear pain, sore throat, difficulty swallowing, dizziness. RESPIRATORY: Denies dyspnea, cough, wheezing, hemoptysis, sputum. CARDIOVASCULAR: Denies chest pain, palpitations, orthopnea, edema, GASTROINTESTINAL: Denies nausea, vomiting, abdominal pain, diarrhea, constipation, melena. : Denies dysuria, frequency, incontinence, hematuria, urinary retention. MUSCULOSKELETAL: See HPI SKIN: Denies rash, skin lesions, or other NEUROLOGIC: Denies weakness, headache, numbness, change in speech, confusion, seizures, incoordination. PSYCHIATRIC: No concerning psychosocial issues. 12 point review of systems is negative except for those stated above Patient History <JOSE DE JESUS Singletary - Last Filed: 02/27/19 20:39> Medical History COPD (chronic obstructive pulmonary disease) (Chronic) Depression (Acute) DVT of upper extremity (deep vein thrombosis) (Acute) GERD (gastroesophageal reflux disease) (Acute) Hypothyroid (Chronic) Lung cancer, primary, with metastasis from lung to other site (Chronic) PEG (percutaneous endoscopic gastrostomy) adjustment/replacement/removal (Acute) Peripheral neuropathy (Acute) Surgical History History of lung biopsy (Acute) Family History Mother Congestive heart failure Father Unknown family medical history Social History household members: spouse and caregiver Smoking Status: Current every day smoker alcohol intake: former alcohol intake frequency: 0-2 drinks per day Substance Use Type: does not use Exam <JOSE DE JESUS Singletary - Last Filed: 02/27/19 20:39> Narrative Exam Narrative: GENERAL: Chronically ill elderly gentleman lying on stretcher HEAD: Atraumatic. Normocephalic. No temporal or scalp tenderness. EYES: Pupils equal round and reactive. Extraocular motions intact. No scleral icterus. No injection or drainage. ENT: Nose without bleeding, purulent drainage or septal hematoma. Throat without erythema, tonsillar hypertrophy or exudate. Uvula midline. Airway patent. NECK: Trachea midline. No JVD or lymphadenopathy. Supple, nontender, no meningeal signs. CARDIOVASCULAR: Regular rate and rhythm without murmurs, gallops, or rubs. RESPIRATORY: Coarse bilaterally to auscultation. Breath sounds equal bilaterally. Cough on exam. No increased respiratory effort or accessory muscle use. GASTROINTESTINAL: Abdomen soft, non-tender, nondistended. No hepato-splenomegaly, or palpable masses. No guarding. Active bowel sounds all 4 quadrants EXTREMITIES: No clubbing, cyanosis, or edema. No joint tenderness, effusion, or edema noted. BACK: Pain to palpation of thoracic, lumbar and sacral spine. No palpable step-offs or deformities. Pain to right paraspinal muscles throughout back. Decreased range of motion all monte. NEURO: AOx3. SKIN: No rash or erythema visible skin or back Initial Vital Signs Initial Vital Signs: Vital Signs Temperature 97.1 F L 02/27/19 13:22 Pulse Rate 87 02/27/19 13:22 Respiratory Rate 18 02/27/19 13:22 Blood Pressure 118/71 02/27/19 13:22 Pulse Oximetry 97 02/27/19 13:22 <Kalina Davenport MD - Last Filed: 03/02/19 08:54> Initial Vital Signs Initial Vital Signs: Vital Signs Temperature 97.1 F L 02/27/19 13:22 Pulse Rate 87 02/27/19 13:22 Respiratory Rate 18 02/27/19 13:22 Blood Pressure 118/71 02/27/19 13:22 Pulse Oximetry 97 02/27/19 13:22 Course <JOSE DE JESUS Singletary - Last Filed: 02/27/19 20:39> Orders Ordered: Discontinued Medications Cyclobenzaprine HCl (Flexeril) 10 mg PO NOW ONE Stop: 02/27/19 13:57 Last Admin: 02/27/19 14:27 Dose: 10 mg Documented by: CHARBEL Lidocaine (Lidoderm) 1 each TOP NOW ONE Stop: 02/27/19 14:28 Last Admin: 02/27/19 15:02 Dose: 1 each Documented by: CHARBEL Oxycodone HCl (Percolone) 10 mg PO PRN PRN PRN Reason: Pain, Severe (7-10) Last Admin: 02/27/19 15:04 Dose: 10 mg Documented by: CHARBEL Vital Signs Vital signs: Vital Signs - 8 hr 02/27/19 13:22 02/27/19 14:30 02/27/19 15:24 Temperature 97.1 F L Pulse Rate 87 88 93 H Respiratory Rate 18 16 14 Blood Pressure 118/71 Blood Pressure [Right Arm] 115/88 101/64 Pulse Oximetry 97 98 93 <Kalina Davenport MD - Last Filed: 03/02/19 08:54> Orders Ordered: Discontinued Medications Cyclobenzaprine HCl (Flexeril) 10 mg PO NOW ONE Stop: 02/27/19 13:57 Last Admin: 02/27/19 14:27 Dose: 10 mg Documented by: CHARBEL Lidocaine (Lidoderm) 1 each TOP NOW ONE Stop: 02/27/19 14:28 Last Admin: 02/27/19 15:02 Dose: 1 each Documented by: CHARBEL Oxycodone HCl (Percolone) 10 mg PO PRN PRN PRN Reason: Pain, Severe (7-10) Last Admin: 02/27/19 15:04 Dose: 10 mg Documented by: CHARBEL Vital Signs Vital signs: Vital Signs - 8 hr 02/27/19 13:22 02/27/19 14:30 02/27/19 15:24 Temperature 97.1 F L Pulse Rate 87 88 93 H Respiratory Rate 18 16 14 Blood Pressure 118/71 Blood Pressure [Right Arm] 115/88 101/64 Pulse Oximetry 97 98 93 MDM - Back Pain/Injury <JOSE DE JESUS Singletary - Last Filed: 02/27/19 20:39> Lab Data Labs: Urine Dip Bedside Urine Glucose Negative Bedside Urine Bilirubin - Negative Bedside Urine Ketone - Negative Urine Specific [place] 1.005 Bedside Urine Occult Blood - Negative Bedside Urine pH 8.0 Bedside Urine Protein - Negative Bedside Urine Urobilinogen - Negative Bedside Urine Nitrite - Negative Bedside Urine Leukocytes - Negative Esterase Imaging Data T-spine x-ray: Radiologist's impression: [address] [address] XRay Report Signed Patient: Yash Davila [facility]#: [id number] : 5Acct:[id number] Age/Sex: 63 / MDate of Service: 02/27/19 Loc: ED Accession Number: [id number] Procedure: XR thoracic spine 3V Ordering Provider: Pooja BeauchampP-BC PROCEDURE: XR THORACIC SPINE 3V INDICATIONS: pain, ca hx TECHNIQUE: 5 views of the thoracic spine were acquired. COMPARISON: [facility], CT, CT CHEST W CON, 11/21/2018, 13:53. [facility], CR, THORACIC SPINE 3 VIEWS, 02/16/2017, 12:50. FINDINGS: Bones: No previously unrecognized fractures or dislocations and the T7 moderate wedge compression fracture previously present is again seen. No new compression fractures found. The upper end plate of T6 and T5 and to a slight degree T4 appear mildly impacted, also previously present on CT scanning of the chest 11/21/18. No suspicious bony lesions. 12 pairs of ribs are noted, and appear intact where visualized. Soft tissues: No paravertebral stripe thickening. IMPRESSION: No new compression fracture found. Previously present superior endplate and wedge compression fractures seen at the middle and upper thirds of the thoracic spine are stable over time. Dictated by: Familia Clarke M.D. on 02/27/2019 at 14:43 Approved by: Familia Clarke M.D. on 02/27/2019 at 14:45 Sacrum x-ray: Radiologist's impression: OctavianokavitaYash 63 M [address] [place] [address] XRay Report Signed Patient: Yash Davila [facility]#: [id number] : 5Acct:[id number] Age/Sex: 63 / MDate of Service: 02/27/19 Loc: ED Accession Number: [id number] Procedure: XR sacrum coccyx min 2V Ordering Provider: Pooja Beauchamp [employer]-BC PROCEDURE: XR SACRUM COCCYX MIN 2V INDICATIONS: pain hx ca TECHNIQUE: 3 views of the sacrum and coccyx acquired. COMPARISON: [facility], CR, XR LUMBAR SPINE 2-3V, 10/15/2017, 14:31. FINDINGS: Bones: No fractures or dislocations. No suspicious bony lesions. Degenerative changes at L5-S1 Soft tissues: Visualized bowel gas pattern is normal. No suspicious soft tissue densities. IMPRESSION: L5-S1 degenerative changes. No visualized acute fracture or dislocation. However, if clinical concern and/or pain persist, short interval imaging followup in 7-10 days is recommended, as occult injury cannot be definitively excluded. Dictated by: Alexandra Cast M.D. on 02/27/2019 at 14:29 Approved by: Alexandra Cast M.D. on 02/27/2019 at 14:30 Lumbar x-ray: Radiologist's impression: [address] [address] XRay Report Signed Patient: Yash Davila [facility]#: [id number] : 5Acct:[id number] Age/Sex: 63 / MDate of Service: 02/27/19 Loc: ED Accession Number: [id number] Procedure: XR lumbar spine 2-3V Ordering Provider: Pooja Beauchamp-CAPRICE PROCEDURE: XR LUMBAR SPINE 2-3V INDICATIONS: pain, hx ca TECHNIQUE: 2 views of the lumbar spine were acquired. COMPARISON: [facility], CR, XR LUMBAR SPINE 2-3V, 10/15/2017, 14:31. FINDINGS: Bones: 5 jgy-dhi-kodkkhy vertebrae are present. There is multilevel minimal anterolisthesis. No vertebral body compression fractures. No suspicious bony lesions. Multilevel mild to moderate foraminal narrowing is present most notable at L2-3, L3-4. Moderate foraminal narrowing is present at L5-S1. Overall changes are stable. Soft tissues: Overlying bowel gas pattern is normal. No suspicious soft tissue calcifications. IMPRESSION: Degenerative changes as above, appearing stable compared to prior exam. Dictated by: Alexandra Cast M.D. on 02/27/2019 at 14:29 Approved by: Alexandra Cast M.D. on 02/27/2019 at 14:29 [facility] Narrative Medical decision making narrative: The patient is a 63-year-old male with lung cancer who presents with a chief complaint of back pain for the past week after being jumped on by his large dog. He responded very well to a single dose of Flexeril in the emergency department. I discussed not combining it with his usual pain medication. Given his history, I did obtain x-rays to evaluate for possible mets and these came back with no acute findings. He has no red flag symptoms of incontinence bowel, incontinence of bladder saddle anesthesia discusses that he will come back to the emergency department these occur. I encouraged him to follow up with primary care provider in the next few days. Patient has no questions or concerns upon discharge and states understanding of return precautions as well as follow-up care. <Kalina Davenport MD - Last Filed: 03/02/19 08:54> Lab Data Labs: Urine Dip Bedside Urine Glucose Negative Bedside Urine Bilirubin - Negative Bedside Urine Ketone - Negative Urine Specific [place] 1.005 Bedside Urine Occult Blood - Negative Bedside Urine pH 8.0 Bedside Urine Protein - Negative Bedside Urine Urobilinogen - Negative Bedside Urine Nitrite - Negative Bedside Urine Leukocytes - Negative Esterase Discharge Plan Departure Patient Disposition: Home Clinical Impression: Back pain Qualifiers: Back pain location: low back pain Chronicity: unspecified Back pain laterality: right Sciatica presence: without sciatica Qualified Code(s): M54.5 - Low back pain Discharge Date/Time: 02/27/19 15:41 Instructions: DI for Low Back Pain, DI for Back Spasm, DI for Back Strain or Sprain Activity Restrictions/Additional Instructions: Your x-rays resulted with no acute fractures. The muscle relaxer that we used in the emergency department appears to have worked very well. [place] [facility] [place] combine it with your pain medication, and do not combine with anything sedating. The Flexeril can be sedating. Please come back to the emergency department for any acute concerns such as loss of bowel or bladder control or numbness in your groin Please follow up with her primary care provider in the next few days. Prescriptions: New cyclobenzaprine 10 mg tablet 10 mg PO TID PRN (Reason: muscle spasm) Qty: 10 RF: 0 No Action acetaminophen 650 MG tablet extended release 650 mg PO Q8H Qty: 30 RF: 0 sertraline [Zoloft] 50 mg Tablet 75 mg PO DAILY RF: 0 sucralfate 100 mg/mL Suspension 5 ml PO QID Qty: 500 RF: 0 levothyroxine 150 mcg Tablet 150 mcg PO DAILY Qty: 90 RF: 0 pregabalin [Lyrica] 50 mg Capsule 50 mg PO TID Qty: 90 RF: 1 tramadol 50 mg Tablet 50 mg PO BID Qty: 40 RF: 0 oxycodone 10 mg Tablet 10 mg PO Q4H PRN (Reason: Pain (Scale Score 4-6)) 30 Days Qty: 120 RF: 0 albuterol sulfate [ProAir HFA] 90 MCG/PUFF HFA aerosol inhaler 1 puff INH Q6H RF: 0 ipratropium-albuterol 0.5 mg-3 mg(2.5 mg base)/3 mL Solution For Nebulization 3 ml INH Q4HR PRN (Reason: sob/wheezing) Qty: 40 RF: 0 esomeprazole magnesium 20 MG capsule,delayed release(DR/EC) 20 mg PO DAILY Qty: 90 RF: 1 [DISABLED PARKING ] 1 ea miscellaneous X1 RF: 0
== END 2019-02-27 15:41 | disposition home or self-care (01) ==
PROVIDERS: Emergency Provider Nurse Practitioner Family
DX: M54.5 Low back pain (principal); C34.90 Malignant neoplasm of unspecified part of unspecified bronchus or lung
CPT/HCPCS: 72072; 72100; 72220; 81003; 99283

== ENCOUNTER 2019-03-17 20:54 | Emergency (ER) | payer OTHER, MEDICAID, SELFPAY ==
[2018-04-11 14:12] VITALS: BMI 19.3
[2019-03-17 21:00] VITALS: BP 137/77; PULSE 83; RESP 15; TEMP 36.4; O2SAT 95; BMI 18.7
--- NOTE | 2019-03-17 21:00 | DI.RAD.S_ITS ---
PROCEDURE: XR CHEST 1V INDICATIONS: chest pain TECHNIQUE: One view of the chest was acquired. COMPARISON: [facility], CR, XR CHEST 2V, 04/22/2018, 2:40. FINDINGS: Surgical changes and devices: Left chest wall Port-A-Cath tip is in SVC. Lungs and pleura: Large lucency in right upper lung field is again seen, likely represent patient's known cavitary lesion in this area. Advanced emphysematous changes are noted. No obvious pneumothorax. No significant pleural effusion. Mediastinum: Mediastinal contours appear normal. Heart size is normal. Bones and chest wall: No suspicious bony lesions. Overlying soft tissues appear unremarkable. IMPRESSION: Large area of lucency in the right apex consistent with patient's known cavitary lesion in this area. COPD. Suggestion of small right pleural effusion/thickening. No definite focal infiltrate or obvious pneumothorax. Dictated by: Ari Michael M.D. on 03/17/2019 at 21:54 Approved by: Ari Michael M.D. on 03/17/2019 at 21:56
[2019-03-17 21:27] LABS: Add Manual Diff / Slide Review NO; Basophils Absolute Auto 100 /uL (0-100); Basophils Percent Auto 1.3 % (0-2); Eosinophils Absolute Auto 500 /uL (0-450); Eosinophils Percent Auto 4.6 % (2-4); Hematocrit 37.5 % (41-53); Lymphocytes Absolute Auto 1100 /uL (1100-4500); Lymphocytes Percent Auto 10.3 % (25-40); Mean Corpuscular HGB Conc 34.7 % (30-36); Mean Corpuscular Hemoglobin 28.2 PG (26-34); Mean Corpuscular Volume 81.2 fL (80-100); Monocytes Absolute Auto 1000 /uL (0-900); Monocytes Percent Auto 8.8 % (3-14); Neutrophils Absolute Auto 8300 /uL (1500-7000); Platelet Count 488 X10^3/uL (150-400); Red Blood Cell Count 4.63 X10^6/uL (4.5-5.9); Red Cell Distribution Width 13.3 % (11.6-14.8); White Blood Cell Count 11.1 X10^3/uL (4.5-11.0)
[2019-03-17 21:37] LABS: INR 1.2 (0.9-1.3); Prothrombin Time 13.7 SECONDS (10.1-12.7)
[2019-03-17 21:39] LABS: PTT Partial Thromboplastin Tim 35 SECONDS (26.4-36.2)
[2019-03-17 21:43] LABS: Alanine Aminotransferase 14 IU/L (<50); Albumin 3.9 g/dL (3.5-5.0); Albumin Globulin Ratio 0.9 (1.0-2.8); Alkaline Phosphatase 108 U/L (38-126); Aspartate Aminotransferase 22 IU/L (17-59); Bilirubin Total 0.6 mg/dL (0.2-1.3); Blood Urea Nitrogen 10 mg/dL (9-20); Calcium 9.4 mg/dL (8.4-10.2); Carbon Dioxide 29 mmol/L (22-32); Chloride 96 mmol/L (98-107); Creatine Kinase 22 U/L (55-170); Estimated Glomerular Filt Rate > 60.0 mL/min (>60); Globulin 4.2 g/dL (1.7-4.1); Glucose 122 mg/dL (80-110); HEMOLYSIS < 15 (0-50); Lipase 35 U/L (23-300); Potassium 4.4 mmol/L (3.4-5.1); Sodium 132 mmol/L (137-145); Total Protein 8.1 g/dL (6.3-8.2)
--- NOTE | 2019-03-17 21:43 | ED_ITS ---
HPI - Chest Pain General Chief Complaint: Chest Pain Stated Complaint: Chest pain Time Seen by Provider: 03/17/19 21:08 Source: patient Mode of arrival: Family Vehicle Limitations: no limitations History of Present Illness HPI narrative: 64-year-old male here for evaluation of right-sided chest pain. Does have a history of lung cancer. Has had a right upper lung lobectomy in the past. Has had pain in his right side of his chest for the past several days worsening over the past couple days. No fevers. Worse with deep breathing and palpation. Related Data Home Medications Medication Instructions Recorded Confirmed albuterol sulfate [ProAir HFA] 1 puff INH Q6H 03/18/18 02/27/19 sertraline [Zoloft] 75 mg PO DAILY 06/23/18 02/27/19 [DISABLED PARKING ] 1 ea MISCELLANEOUS X1 02/27/19 02/27/19 Previous Rx's Medication Instructions Recorded acetaminophen 650 mg PO Q8H #30 tab 02/16/17 ipratropium-albuterol 3 ml INH Q4HR PRN #40 ml 03/20/18 esomeprazole magnesium 20 mg PO DAILY #90 cap 05/19/18 sucralfate 5 ml PO QID #500 ml 06/23/18 levothyroxine 150 mcg PO DAILY #90 tab 11/28/18 pregabalin [Lyrica] 50 mg PO TID #90 cap 12/06/18 cyclobenzaprine 10 mg PO TID PRN #10 tab 02/27/19 oxycodone 10 mg PO Q4H PRN 30 Days #120 tab 03/14/19 tramadol 50 mg PO BID #40 tab 03/14/19 cyclobenzaprine 10 mg PO TID PRN #10 tab 03/17/19 lidocaine 1 patch TOP Q24H PRN #1 each 03/17/19 Allergies Allergy/AdvReac Type Severity Reaction Status Date / Time aspirin [ASPIRIN] AdvReac Mild NAUSEA Verified 04/22/18 00:41 Review of Systems Constitutional Constitutional: Denies fever(s) Cardiovascular Cardiovascular: Reports chest pain and Denies dyspnea Respiratory Respiratory: Reports pain on inspiration and Denies dyspnea Gastrointestinal Gastrointestinal: Denies abdominal pain, Denies nausea and Denies vomiting Genitourinary Genitourinary: Denies dysuria Musculoskeletal Musculoskeletal: Denies myalgias and Denies arthralgias Integumentary/Breasts Skin/Breast: Denies lesions and Denies rash Neurologic Neurologic: Denies behavioral changes Psychiatric Psychiatric: Denies behavioral changes Hematologic/Lymphatic Hematologic/Lymphatic: Denies easy bleeding and Denies easy bruising Patient History Medical History COPD (chronic obstructive pulmonary disease) (Chronic) Depression (Acute) DVT of upper extremity (deep vein thrombosis) (Acute) GERD (gastroesophageal reflux disease) (Acute) Hypothyroid (Chronic) Lung cancer, primary, with metastasis from lung to other site (Chronic) PEG (percutaneous endoscopic gastrostomy) adjustment/replacement/removal (Acute) Peripheral neuropathy (Acute) Social History household members: spouse and caregiver Smoking Status: Current every day smoker alcohol intake: former Smoking Status: Current every day smoker alcohol intake frequency: 0-2 drinks per day Substance Use Type: does not use Exam Initial Vital Signs Initial Vital Signs: Vital Signs Temperature 97.5 F L 03/17/19 21:00 Pulse Rate 83 03/17/19 21:00 Respiratory Rate 15 03/17/19 21:00 Blood Pressure 137/77 03/17/19 21:00 Pulse Oximetry 95 03/17/19 21:00 Const General: cooperative Orientation: alert, awake and oriented x3 HENMT Head: normal to inspection and normocephalic Chest Chest: No crepitus and tenderness (Right-sided chest) Resp Effort & Inspection: normal respiratory effort Auscultation: clear to auscultation bilaterally Cardio Rate: regular rate Rhythm: regular rhythm GI Inspection: non-distended Palpation: soft Back/Spine/Pelvis Back: No CVA tenderness Skin Rashes: no rashes Neuro General: alert and awake Cognition: normal cognition Speech: speech normal Extrem General: normal to inspection and capillary refill normal Psych Appearance: grossly normal and well kempt Course Orders Ordered: ED Orders 03/17/19 21:00 XR chest 1V Stat EKG-12 Lead Stat 03/17/19 21:20 Complete Blood Count AUTO DIFF Stat Comprehensive Metabolic Panel Stat Lipase Stat Partial Thromboplastin Time Stat Prothrombin Time INR Stat Troponin & CK Cardiac Panel Stat Discontinued Medications Cyclobenzaprine HCl (Flexeril 10 Mg Prepack) 1 bottle [facility] [place] [place] [facility] Stop: 03/17/19 23:41 Last Admin: 03/17/19 23:55 Dose: 1 bottle Documented by: KBROTEM Hydromorphone HCl (Dilaudid) 1 mg IV NOW ONE Stop: 03/17/19 21:45 Last Admin: 03/17/19 21:50 Dose: 1 mg Documented by: HGUBERN Vital Signs Vital signs: Vital Signs - 8 hr 03/17/19 21:00 03/17/19 21:51 03/17/19 22:39 Temperature 97.5 F L Pulse Rate 83 79 82 Respiratory Rate 15 17 20 Blood Pressure 137/77 Blood Pressure [Left Arm] 121/72 125/88 Pulse Oximetry 95 98 100 03/18/19 00:00 Temperature Pulse Rate 88 Respiratory Rate 19 Blood Pressure 124/83 Blood Pressure [Left Arm] Pulse Oximetry 100 MDM - Chest Pain Medical Records Data Attestation: I reviewed the patient's medical records. Lab Data Attestation: I reviewed the patient's lab results. Result diagrams: 03/17/19 21:20 03/17/19 21:20 Labs: Lab Results 03/17/19 03/17/19 03/17/19 Range/Units 21:20 21:20 21:20 WBC 11.1 H (4.5-11.0) X10^3/uL RBC 4.63 (4.5-5.9) X10^6/uL Hgb 13.0 L (13.5-17.5) g/dL Hct 37.5 L (41-53) % MCV 81.2 (80-100) fL MCH 28.2 (26-34) PG MCHC 34.7 (30-36) % RDW 13.3 (11.6-14.8) % Plt Count 488 H (150-400) X10^3/uL Neut % (Auto) 75.0 (50-75) % Lymph % (Auto) 10.3 L (25-40) % [place] % (Auto) 8.8 (3-14) % Eos % (Auto) 4.6 H (2-4) % Baso % (Auto) 1.3 (0-2) % Neut # (Auto) 8300 H (7646-5922) /uL Lymph # (Auto) 1100 (4851-7929) /uL [place] # (Auto) 1000 H (0-900) /uL Eos # (Auto) 500 H (0-450) /uL Baso # (Auto) 100 (0-100) /uL PT 13.7 H (10.1-12.7) SECONDS INR 1.2 (0.9-1.3) APTT 35 D (26.4-36.2) SECONDS Sodium 132 L (137-145) mmol/L Potassium 4.4 (3.4-5.1) mmol/L Chloride 96 L (98-107) mmol/L Carbon Dioxide 29 (22-32) mmol/L BUN 10 (9-20) mg/dL Creatinine 1.00 (0.66-1.25) mg/dL Estimated GFR > 60.0 (>60) mL/min BUN/Creatinine Ratio 10.0 (6-22) Glucose 122 H (80-110) mg/dL Calcium 9.4 (8.4-10.2) mg/dL Total Bilirubin 0.6 (0.2-1.3) mg/dL AST 22 (17-59) IU/L ALT 14 (<50) IU/L Alkaline Phosphatase 108 (38-126) U/L Total Creatine Kinase 22 L (55-170) U/L CK-MB (CK-2) TNP CK-MB (CK-2) Rel Index TNP Troponin I < 0.012 (0.01-0.034) ng/mL Total Protein 8.1 (6.3-8.2) g/dL Albumin 3.9 (3.5-5.0) g/dL Globulin 4.2 H (1.7-4.1) g/dL Albumin/Globulin Ratio 0.9 L (1.0-2.8) Lipase 35 (23-300) U/L Imaging Data Chest x-ray: Radiologist's impression: [address] [address] XRay Report Signed Patient: Yash Davila [facility]#: [id number] : 5Acct:[id number] Age/Sex: 64 / MDate of Service: 03/17/19 Loc: ED Accession Number: [id number] Procedure: XR chest 1V Ordering Provider: Lanker,Andre D.O. PROCEDURE: XR CHEST 1V INDICATIONS: chest pain TECHNIQUE: One view of the chest was acquired. COMPARISON: [facility], CR, XR CHEST 2V, 04/22/2018, 2:40. FINDINGS: Surgical changes and devices: Left chest wall Port-A-Cath tip is in SVC. Lungs and pleura: Large lucency in right upper lung field is again seen, likely represent patient's known cavitary lesion in this area. Advanced emphysematous changes are noted. No obvious pneumothorax. No significant pleural effusion. Mediastinum: Mediastinal contours appear normal. Heart size is normal. Bones and chest wall: No suspicious bony lesions. Overlying soft tissues appear unremarkable. IMPRESSION: Large area of lucency in the right apex consistent with patient's known cavitary lesion in this area. COPD. Suggestion of small right pleural effusion/thickening. No definite focal infiltrate or obvious pneumothorax. Dictated by: Ari Michael M.D. on 03/17/2019 at 21:54 Approved by: Ari Michael M.D. on 03/17/2019 at 21:56 ECG Data Attestation: I personally reviewed and interpreted this ECG as follows: Prior ECG tracings: not available for review Interpretation: Sinus rhythm Ventricular rate is 70 Normal axis Normal QRS Normal QTC No ST T wave changes MDM Narrative Medical decision making narrative: Patient has obvious reproducible right-sided chest discomfort. Low suspicion for ACS. EKG and chest x-ray showed no acute changes. Patient has no skin rashes concerning for zoster. He states he has had shingles in the past and this feels different than that. No signs of rib fractures on the x-ray. His clinical presentation is not consistent with that. I do suspect intercostal muscle strain versus spasm. Patient has pain medication at home. He reports improvement in pain after medications here in the ER. Will send home with muscle relaxation. Also sent home with lidocaine patches. Patient was given return precautions and follow-up instructions. He expressed understanding and agreement plan. Discharge Plan Departure Patient Disposition: Home Clinical Impression: Acute chest wall pain Discharge Date/Time: 03/18/19 00:01 Instructions: DI for Atypical Chest Pain Activity Restrictions/Additional Instructions: You do need to continue all of your medications as directed. I also highly recommend you contact your primary provider to discuss the chest x-ray findings today. Return to the emergency department for any new or worsening symptoms Prescriptions: New lidocaine 4 % adhesive patch,medicated 1 patch TOP Q24H PRN (Reason: pain) Qty: 1 RF: 0 cyclobenzaprine 10 mg tablet 10 mg PO TID PRN (Reason: muscle spasm) Qty: 10 RF: 0 No Action acetaminophen 650 MG tablet extended release 650 mg PO Q8H Qty: 30 RF: 0 sertraline [Zoloft] 50 mg Tablet 75 mg PO DAILY RF: 0 sucralfate 100 mg/mL Suspension 5 ml PO QID Qty: 500 RF: 0 levothyroxine 150 mcg Tablet 150 mcg PO DAILY Qty: 90 RF: 0 pregabalin [Lyrica] 50 mg Capsule 50 mg PO TID Qty: 90 RF: 1 tramadol 50 mg Tablet 50 mg PO BID Qty: 40 RF: 0 oxycodone 10 mg Tablet 10 mg PO Q4H PRN (Reason: Pain (Scale Score 4-6)) 30 Days Qty: 120 RF: 0 albuterol sulfate [ProAir HFA] 90 MCG/PUFF HFA aerosol inhaler 1 puff INH Q6H RF: 0 ipratropium-albuterol 0.5 mg-3 mg(2.5 mg base)/3 mL Solution For Nebulization 3 ml INH Q4HR PRN (Reason: sob/wheezing) Qty: 40 RF: 0 esomeprazole magnesium 20 MG capsule,delayed release(DR/EC) 20 mg PO DAILY Qty: 90 RF: 1 [DISABLED PARKING ] 1 ea miscellaneous X1 RF: 0 cyclobenzaprine 10 mg tablet 10 mg PO TID PRN (Reason: muscle spasm) Qty: 10 RF: 0
[2019-03-17] MEDS: HYDROMORPHONE 1 MG INJ IV (21:50)
[2019-03-17 21:51] VITALS: BP 121/72; PULSE 79; RESP 17; O2SAT 98
[2019-03-17 21:54] LABS: Troponin I < 0.012 ng/mL (0.01-0.034)
[2019-03-17 22:39] VITALS: BP 125/88; PULSE 82; RESP 20; O2SAT 100
[2019-03-17] MEDS: CYCLOBENZAPRINE 10 MG PREPACK 1 BOTTLE MISC (23:55)
[2019-03-18] VITALS: BP 124/83; PULSE 88; RESP 19; O2SAT 100
== END 2019-03-18 00:01 | disposition home or self-care (01) ==
PROVIDERS: Emergency Provider Emergency Medicine
DX: R07.89 Other chest pain (principal); R79.89 Other specified abnormal findings of blood chemistry
CPT/HCPCS: 36415; 71045; 80053; 82550; 83690; 84484; 85025; 85610; 85730; 93005; 93010; 96374; 99284; 99285; J1170

== ENCOUNTER 2019-04-07 08:04 | Emergency (ER) | payer OTHER, MEDICAID, SELFPAY ==
[2018-04-11 14:12] VITALS: BMI 19.3
[2019-04-07 08:14] VITALS: BP 140/71; PULSE 79; RESP 24; TEMP 36.8; O2SAT 97; BMI 18.6
--- NOTE | 2019-04-07 08:17 | ED_ITS ---
HPI - Extremity Injury (Upper) General Chief Complaint: Extremity Injury, Upper Stated Complaint: right arm sore Time Seen by Provider: 04/07/19 08:16 Source: patient and old records reviewed Mode of arrival: Ambulatory Limitations: no limitations History of Present Illness HPI narrative: 64-year-old male who comes to the emergency department with complaint of right forearm pain. Patient states 1 going on for about a week. States he doesn't recall any specific trauma although he often hit his arm on a metal cabinet next to his bed while he sleeping he states that he noticed some bruising which has been slowly improving. He states he did shave the skin to keep a close eye on it. Patient indicates the pain is strongest the point from 3rd of the distal forearm. Patient has full range of motion, no numbness or tingling. He has appreciated some swelling. States he has had some night sweats for the last week. He states he has had in the past but not as frequently. 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 He received immunotherapy. He did develop but started cavitary lesion in that area. Patient states he chronically has right chest wall pain which has been worked up. He denies any new shortness of breath. He denies any vomiting but felt nauseated this morning. No GI or urinary issues. Related Data Home Medications Medication Instructions Recorded Confirmed albuterol sulfate [ProAir HFA] 1 puff INH Q6H 03/18/18 02/27/19 sertraline [Zoloft] 75 mg PO DAILY 06/23/18 02/27/19 Previous Rx's Medication Instructions Recorded acetaminophen 650 mg PO Q8H #30 tab 02/16/17 ipratropium-albuterol 3 ml INH Q4HR PRN #40 ml 03/20/18 esomeprazole magnesium 20 mg PO DAILY #90 cap 05/19/18 sucralfate 5 ml PO QID #500 ml 06/23/18 levothyroxine 150 mcg PO DAILY #90 tab 11/28/18 pregabalin [Lyrica] 50 mg PO TID #90 cap 12/06/18 cyclobenzaprine 10 mg PO TID PRN #10 tab 02/27/19 cyclobenzaprine 10 mg PO TID PRN #10 tab 03/17/19 lidocaine 1 patch TOP Q24H PRN #1 each 03/17/19 oxycodone 10 mg PO Q4H PRN #180 tab 03/30/19 tramadol 50 mg PO BID PRN #60 tab 03/30/19 rivaroxaban See Rx Instructions .ROUTE 04/07/19 .COMPLEX #51 each Allergies Allergy/AdvReac Type Severity Reaction Status Date / Time aspirin [ASPIRIN] AdvReac Mild NAUSEA Verified 04/07/19 08:14 Review of Systems Review of Systems ROS Unobtainable: All systems reviewed & are unremarkable except as noted in HPI and below Patient History Medical History COPD (chronic obstructive pulmonary disease) (Chronic) Depression (Acute) DVT of upper extremity (deep vein thrombosis) (Acute) GERD (gastroesophageal reflux disease) (Acute) Hypothyroid (Chronic) Lung cancer, primary, with metastasis from lung to other site (Chronic) PEG (percutaneous endoscopic gastrostomy) adjustment/replacement/removal (Acute) Peripheral neuropathy (Acute) Surgical History History of lung biopsy (Acute) Social History household members: spouse and caregiver Smoking Status: Current every day smoker alcohol intake: former Smoking Status: Current every day smoker alcohol intake frequency: 0-2 drinks per day Substance Use Type: does not use Exam Narrative Exam Narrative: GENERAL: Alert and oriented x three, thin male in mild distress. HEENT: Head normocephalic, atraumatic, EOMI, pupils reactive, face symmetric, moist mucous membranes NECK: Supple, full range of motion CARDIOVASCULAR: Regular rate and rhythm without murmurs, rubs or gallops. RESPIRATORY: Breath sounds equal bilaterally, no wheezes rales or rhonchi. No tachypnea or accessory muscle use. ABDOMEN: Soft, nontender. Normoactive bowel sounds all 4 quadrants. No guarding or rebound, rigidity, no mass : No CVA tenderness EXTREMITIES: Normal range of motion, no clubbing. Patient's right forearm has mild swelling in comparison to the left particularly over the dorsum. There does appear to be a little bit of erythema over about a 2 x 6 cm area. He is only mildly tender to touch. Mild bony tenderness at the point of proximal 3rd of the forearm. Neurovascularly intact. 2+ radial pulse. Full range of motion. Patient has 5/5 muscle strength in upper extremities. Normal flexion and extension of the wrist, fingers and hand. With normal sensation throughout. NEUROLOGICAL: Cranial nerves II through XII grossly intact. Moving all extremities SKIN: Warm, dry, no petechiae, no rashes. Patient does have 2 small puncture wounds on his right forearm more proximal from the area of erythema. He also has multiple scratches on his upper extremities that he states are from his cats. Initial Vital Signs Initial Vital Signs: Vital Signs Temperature 98.3 F 04/07/19 08:14 Pulse Rate 79 04/07/19 08:14 Respiratory Rate 24 04/07/19 08:14 Blood Pressure 140/71 04/07/19 08:14 Pulse Oximetry 97 04/07/19 08:14 Course Orders Ordered: Discontinued Medications Rivaroxaban (Xarelto) 15 mg PO NOW ONE Stop: 04/07/19 09:48 Last Admin: 04/07/19 10:10 Dose: 15 mg Documented by: JOE Vital Signs Vital signs: Vital Signs - 8 hr 04/07/19 08:14 04/07/19 09:30 Temperature 98.3 F Pulse Rate 79 94 H Respiratory Rate 24 18 Blood Pressure 140/71 Blood Pressure [Right Arm] 148/71 H Pulse Oximetry 97 95 MDM - Extremity Injury (Upper) Imaging Data US - DVT: Radiologist's Impression: [address] [address] Ultrasound Report Signed Patient: Yash Davila [facility]#: [id number] : 5Acct:[id number] Age/Sex: 64 / MDate of Service: 04/07/19 Loc: ED Accession Number: [id number] Procedure: periph venous up extrem rt Ordering Provider: Pooja Anderson D.O. PROCEDURE: US PERIPH VENOUS UP EXTREM RT INDICATIONS: RIGHT ARM EDEMA, ERYTHEMA TECHNIQUE: Real-time imaging, as well as color and pulse Doppler interrogation, was performed of the right upper extremity deep veins from the inferior neck to the antecubital fossa. COMPARISON: [facility], PERIPH.[place] EXT BILAT, 01/27/2017, 16:32. [facility], , PVE UNILATERAL RIGHT, 06/11/2015, 4:22. FINDINGS: Within the right axillary vein, there is a small amount of echogenic thrombus seen along the vigil of the vessel, which is nonocclusive. No additional findings of deep venous thrombosis can be seen elsewhere. No findings of superficial venous thrombosis are seen. IMPRESSION: Chronic appearing deep venous stenosis can be seen within the right axillary vein, with echogenic, nonocclusive thrombus. It is noted that at 2016, this patient had DVT at this site. Dictated by: Kelton Camilo M.D. on 04/07/2019 at 8:24 Approved by: Kelton Camilo M.D. on 04/07/2019 at 8:26 MDM Narrative Medical decision making narrative: Patient has ultrasound from 2016 which showed extensive clot. Today they don't see superficial thrombosis but they do see small amount of echogenic thrombus right axillary vein. This might potentially be the cause of some of patient's redness. Although his is localized. Discussed with patient to watch for signs of infection or worsening symptoms he is to return but we did discuss starting a anticoagulant for the short-term. He follows regularly with Hematology-Oncology and discussed with them about final decision for long-term anticoagulation, I asked that he call for sooner appointment for recheck. Patient has labs from 03/17/2019 including coags and LFTs which do not show any major abnormalities. Patient given first dose in ED. Asked to recontact if prescription is financially an issue. Discharge Plan Departure Patient Disposition: Home Clinical Impression: DVT (deep venous thrombosis) Discharge Date/Time: 04/07/19 10:14 Instructions: DI for Deep Vein Thrombosis Activity Restrictions/Additional Instructions: Follow-up with your manager electrical/oncologist, call for sooner appointment rather than your appointment at the end of the month. Let them know that a DVT was noted in her right upper extremity and you were started on anticoagulation. Continue home medications as prescribed. Take Xarelto 15 mg twice daily x3 weeks, then 20 mg once daily. Continue under the direction of your oncologist. Return to the ER for fevers greater 100.4 F, rapidly worsening redness, swelling, increasing pain, worsening shortness of breath, chest pain or pressure, lightheadedness or passing out, new numbness, weakness, color changes such as cyanosis pallor or other new or concerning symptoms. Prescriptions: New rivaroxaban 15 mg (42)- 20 mg (9) tablets,dose pack See Rx Instructions .ROUTE .COMPLEX Qty: 51 RF: 0 No Action acetaminophen 650 MG tablet extended release 650 mg PO Q8H Qty: 30 RF: 0 sertraline [Zoloft] 50 mg Tablet 75 mg PO DAILY RF: 0 sucralfate 100 mg/mL Suspension 5 ml PO QID Qty: 500 RF: 0 levothyroxine 150 mcg Tablet 150 mcg PO DAILY Qty: 90 RF: 0 pregabalin [Lyrica] 50 mg Capsule 50 mg PO TID Qty: 90 RF: 1 oxycodone 10 mg Tablet 10 mg PO Q4H PRN (Reason: pain) Qty: 180 RF: 0 tramadol 50 mg Tablet 50 mg PO BID PRN (Reason: pain) Qty: 60 RF: 0 albuterol sulfate [ProAir HFA] 90 MCG/PUFF HFA aerosol inhaler 1 puff INH Q6H RF: 0 ipratropium-albuterol 0.5 mg-3 mg(2.5 mg base)/3 mL Solution For Nebulization 3 ml INH Q4HR PRN (Reason: sob/wheezing) Qty: 40 RF: 0 esomeprazole magnesium 20 MG capsule,delayed release(DR/EC) 20 mg PO DAILY Qty: 90 RF: 1 cyclobenzaprine 10 mg tablet 10 mg PO TID PRN (Reason: muscle spasm) Qty: 10 RF: 0 lidocaine 4 % adhesive patch,medicated 1 patch TOP Q24H PRN (Reason: pain) Qty: 1 RF: 0 cyclobenzaprine 10 mg tablet 10 mg PO TID PRN (Reason: muscle spasm) Qty: 10 RF: 0 Referrals: Thomas Young MD [Physician] -
--- NOTE | 2019-04-07 08:18 | DI.RAD.S_ITS ---
PROCEDURE: XR FOREARM RT 2V INDICATIONS: RIGHT FOREARM PAIN TECHNIQUE: 2 views of the forearm were acquired. COMPARISON: None. FINDINGS: Bones: No fractures or dislocations. No suspicious bony lesions. Soft tissues: No suspicious soft tissue calcifications or masses. IMPRESSION: No fracture or dislocation. Dictated by: Avelino Bernard M.D. on 04/07/2019 at 8:55 Approved by: Avelino Bernard M.D. on 04/07/2019 at 9:03
--- NOTE | 2019-04-07 08:36 | DI.US.S_ITS ---
PROCEDURE: US PERIPH VENOUS UP EXTREM RT INDICATIONS: RIGHT ARM EDEMA, ERYTHEMA TECHNIQUE: Real-time imaging, as well as color and pulse Doppler interrogation, was performed of the right upper extremity deep veins from the inferior neck to the antecubital fossa. COMPARISON: [facility], , PERIPH.[place] EXT BILAT, 01/27/2017, 16:32. [facility], , PVE UNILATERAL RIGHT, 06/11/2015, 4:22. FINDINGS: Within the right axillary vein, there is a small amount of echogenic thrombus seen along the vigil of the vessel, which is nonocclusive. No additional findings of deep venous thrombosis can be seen elsewhere. No findings of superficial venous thrombosis are seen. IMPRESSION: Chronic appearing deep venous stenosis can be seen within the right axillary vein, with echogenic, nonocclusive thrombus. It is noted that at 2015, this patient had DVT at this site. Dictated by: Kelton Camilo M.D. on 04/07/2019 at 8:24 Approved by: Kelton Camilo M.D. on 04/07/2019 at 8:26
[2019-04-07 09:30] VITALS: BP 148/71; PULSE 94; RESP 18; O2SAT 95
[2019-04-07] MEDS: RIVAROXABAN 10 MG TABLET 15 MG PO (10:10)
[2019-04-07 10:13] VITALS: BP 136/66; PULSE 85; RESP 24; O2SAT 98
== END 2019-04-07 10:14 | disposition home or self-care (01) ==
PROVIDERS: Emergency Provider Emergency Medicine
DX: I82.621 Acute embolism and thrombosis of deep veins of right upper extremity (principal)
CPT/HCPCS: 73090; 93971; 99283; 99284

== ENCOUNTER 2019-04-25 03:29 | Emergency (ER) | payer OTHER, MEDICAID, SELFPAY ==
[2018-04-11 14:12] VITALS: BMI 19.3
[2019-04-25] VITALS (7 sets, daily range): BP systolic 100–128; BP diastolic 57–91; PULSE 76–88; RESP 13–33; TEMP 36.9; O2SAT 92–99
--- NOTE | 2019-04-25 03:30 | ED_ITS ---
HPI - SOB/Dyspnea General Chief Complaint: Shortness of Breath/Dyspnea Stated Complaint: coughing up blood Time Seen by Provider: 04/25/19 03:30 Source: patient and family Mode of arrival: Ambulatory Limitations: no limitations History of Present Illness HPI Narrative: 64-year-old male smoker with history of lung cancer and a recently diagnosed DVT presents with a chief complaint of hemoptysis over the past week to 10 days. He is not dizzy nor weak or lightheaded. He states that most the time his hemoptysis is mild but it has been increasing and is much more tonight. Patient has a remote history of lung cancer which has been in remission per the patient. He does complain of rapidly worsening severe pleur itic type chest pain over the past few months as well as a 20 lb weight loss which is unexplained. He denies nausea, vomiting or diarrhea. He denies any hematemesis or dark and tarry stools. MD Complaint: shortness of breath and cough Onset (ago): day(s) Severity: moderate Consistency/Duration: constant Relieving factors: rest Known history of: COPD and DVT Associated symptoms: chest pain, pain with inspiration, cough, sputum production and hemoptysis Treatment prior to arrival: none Related Data Home oxygen amount: none Home Medications Medication Instructions Recorded Confirmed albuterol sulfate [ProAir HFA] 1 puff INH Q6H 03/18/18 04/17/19 sertraline [Zoloft] 75 mg PO DAILY 06/23/18 04/17/19 Previous Rx's Medication Instructions Recorded acetaminophen 650 mg PO Q8H #30 tab 02/16/17 ipratropium-albuterol 3 ml INH Q4HR PRN #40 ml 03/20/18 esomeprazole magnesium 20 mg PO DAILY #90 cap 05/19/18 sucralfate 5 ml PO QID #500 ml 06/23/18 cyclobenzaprine 10 mg PO TID PRN #10 tab 02/27/19 cyclobenzaprine 10 mg PO TID PRN #10 tab 03/17/19 lidocaine 1 patch TOP Q24H PRN #1 each 03/17/19 oxycodone 10 mg PO Q4H PRN #180 tab 03/30/19 tramadol 50 mg PO BID PRN #60 tab 03/30/19 rivaroxaban See Rx Instructions .ROUTE 04/07/19 .COMPLEX #51 each levothyroxine 150 mcg PO DAILY #90 tab 04/11/19 pregabalin [Lyrica] 50 mg PO TID #90 cap 04/11/19 Allergies Allergy/AdvReac Type Severity Reaction Status Date / Time aspirin [ASPIRIN] AdvReac Mild NAUSEA Verified 04/07/19 08:14 Review of Systems Constitutional Constitutional: Denies chills, Denies fatigue, Denies fever(s), Denies frequent falls, Denies lethargy and Denies weakness Eyes Eyes: Denies change in vision, Denies eye discharge, Denies irritation and Denies loss of vision ENT Ears, Nose, Mouth, and Throat: Denies change in voice, Denies dizziness, Denies neck pain, Denies sore throat and Denies throat swelling Cardiovascular Cardiovascular: Denies chest pain, Denies irregular heart rhythm, Denies lightheadedness, Denies palpitations, Denies dyspnea, Denies dyspnea on exertion and Denies orthopnea Respiratory Respiratory: Reports change in phlegm color, Reports cough, Reports hemoptysis, Reports pain with cough, Denies dyspnea, Denies dyspnea on exertion and Denies wheezing Gastrointestinal Gastrointestinal: Denies abdominal pain, Denies change in bowel habits, Denies diarrhea, Denies nausea and Denies vomiting Genitourinary Genitourinary: Denies hematuria, Denies flank pain, Denies urinary incontinence and Denies urinary urgency Musculoskeletal Musculoskeletal: Denies back pain, Denies muscle weakness, Denies neck pain, Denies numbness and Denies tingling Integumentary/Breasts Skin/Breast: Denies pruritus, Denies erythema, Denies rash and Denies wounds Neurologic Neurologic: Denies behavioral changes, Denies confusion, Denies dizziness, Denies frequent falls, Denies loss of vision, Denies numbness, Denies tingling and Denies weakness Psychiatric Psychiatric: Denies anxiety, Denies behavioral changes, Denies confusion, Denies depression, Denies homicidal ideation and Denies suicidal ideation Endocrine Endocrine: Denies fatigue, Denies flushing and Denies palpitations Hematologic/Lymphatic Hematologic/Lymphatic: Denies easy bruising Allergic/Immunologic Allergic/Immunologic: Denies urticaria, Denies throat swelling and Denies wheezing Patient History Medical History COPD (chronic obstructive pulmonary disease) (Chronic) Depression (Acute) DVT of upper extremity (deep vein thrombosis) (Acute) GERD (gastroesophageal reflux disease) (Acute) Hypothyroid (Chronic) Lung cancer, primary, with metastasis from lung to other site (Chronic) PEG (percutaneous endoscopic gastrostomy) adjustment/replacement/removal (Acute) Peripheral neuropathy (Acute) Surgical History History of lung biopsy (Acute) Family History Mother Congestive heart failure Father Unknown family medical history Social History household members: spouse and caregiver Smoking Status: Current every day smoker alcohol intake: former Smoking Status: Current every day smoker alcohol intake frequency: 0-2 drinks per day Substance Use Type: does not use Exam Narrative Exam Narrative: GENERAL: [64] year old patient appears stated age. Well- nourished, well-developed patient, in mild distress. HEAD: Atraumatic. Normocephalic. EYES: Pupils equal round and reactive. Extraocular motions intact. No scleral icterus. No injection or drainage. ENT: Nose without bleeding, purulent drainage. Throat without erythema, tonsillar hypertrophy or exudate. Airway patent. NECK: Trachea midline. Non tender CARDIOVASCULAR: Regular rate and rhythm without murmurs, gallops, or rubs. RESPIRATORY: Sounds bilaterally with prolonged expiratory phase, perceived discomfort with deep breath GASTROINTESTINAL: Abdomen soft, non-tender, nondistended. EXTREMITIES: No edema or joint tenderness. BACK: Nontender without deformity or crepitance. No flank tenderness. NEURO: AOx3. 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 He had been treated with Nivolumab from November to February 2018 but due to pneumonitis this was stopped. This original mass evolved to erode portions of T3 and T4. Patient underwent palliative radiotherapy in 2015 as well. In October 2015 patient developed large retrocrural mass with progressive lymphadenopathy. Imaging in June of 2017 suggested stable examination without active metastatic disease, however an January he developed significant shortness of breath and started coughing foamy sputum. He was evaluated with a CT angiogram which showed no pulmonary emboli but he had developed a large cavitary space occupying the majority if not all of his right upper lobe which contained an air-fluid level. Furthermore this mass had eroded portions of the right posterior 5th, 6th and 7th ribs. He subsequently developed a postobstructive pneumonia and had repeat imaging in February of 2018 which noted a stable large centrally necrotic right upper lobe mass without new metastatic disease. Patient sees Infectious Disease and pulmonology at [facility], patient sees Medical Oncology at [facility] and was seen for a routine annual evaluation just last week. Orders Ordered: ED Orders 04/25/19 03:35 Consult to Respiratory Therapy Evaluate & Treat EKG-12 Lead Stat 04/25/19 03:36 XR chest 1V Stat 04/25/19 03:51 Basic Metabolic Panel Stat Complete Blood Count AUTO DIFF Stat Magnesium Stat Partial Thromboplastin Time Stat Procalcitonin Stat Prothrombin Time INR Stat Troponin & CK Cardiac Panel Stat Type and Screen Stat 04/25/19 04:19 CT angio chest PE protocol Stat Albuterol/Ipratropium (Duoneb) 3 ml INH NOW PRN PRN Reason: Wheezing Last Admin: 04/25/19 03:47 Dose: 3 ml Documented by: TSHARP Discontinued Medications Hydromorphone HCl (Dilaudid) 0.5 mg IV NOW ONE Stop: 04/25/19 07:33 Last Admin: 04/25/19 07:54 Dose: 0.5 mg Documented by: JORDAN Tranexamic Acid (Cyklokapron) 1,000 mg MM NOW ONE Stop: 04/25/19 03:35 Last Admin: 04/25/19 04:03 Dose: 1,000 mg Documented by: AL Consultations Consultation #1: call to [facility]. No beds. call to [facility], images pushed. Dr. Jamison (Vascular) in agreement with plan, asks that we contact hospitalist. Vital Signs Vital signs: Vital Signs - 8 hr 04/25/19 03:39 04/25/19 03:47 04/25/19 05:00 Temperature 98.4 F Pulse Rate 88 87 Respiratory Rate 13 18 Blood Pressure 119/70 Blood Pressure [Left Arm] 109/61 Pulse Oximetry 97 99 92 04/25/19 06:28 04/25/19 07:30 04/25/19 07:37 Temperature Pulse Rate 85 81 80 Respiratory Rate 25 H 33 H Blood Pressure Blood Pressure [Left Arm] 128/91 H 117/65 117/65 Pulse Oximetry 95 96 96 04/25/19 08:08 Temperature Pulse Rate 76 Respiratory Rate 23 Blood Pressure Blood Pressure [Left Arm] 100/57 L Pulse Oximetry 93 MDM - SOB/Dyspnea Lab Data Result diagrams: 04/25/19 03:51 04/25/19 03:51 Labs: Lab Results 04/25/19 04/25/19 04/25/19 Range/Units 03:51 03:51 03:51 WBC 14.3 H (4.5-11.0) X10^3/uL RBC 5.01 (4.5-5.9) X10^6/uL Hgb 13.7 (13.5-17.5) g/dL Hct 40.5 L (41-53) % MCV 80.8 (80-100) fL MCH 27.4 (26-34) PG MCHC 33.9 (30-36) % RDW 14.3 (11.6-14.8) % Plt Count 668 H (150-400) X10^3/uL Neut % (Auto) 84.2 H (50-75) % Lymph % (Auto) 7.5 L (25-40) % [place] % (Auto) 6.0 (3-14) % Eos % (Auto) 1.5 L (2-4) % Baso % (Auto) 0.8 (0-2) % Neut # (Auto) 04201 H (6110-2777) /uL Lymph # (Auto) 1100 (4002-6987) /uL [place] # (Auto) 900 (0-900) /uL Eos # (Auto) 200 (0-450) /uL Baso # (Auto) 100 (0-100) /uL Platelet Estimate Increased on smear RBC Morphology Normal morphology PT 21.2 H (10.1-12.7) SECONDS INR 1.8 H (0.9-1.3) APTT 44 H D (26.4-36.2) SECONDS Sodium 136 L (137-145) mmol/L Potassium 4.4 (3.4-5.1) mmol/L Chloride 101 (98-107) mmol/L Carbon Dioxide 25 (22-32) mmol/L BUN 10 (9-20) mg/dL Creatinine 1.00 (0.66-1.25) mg/dL Estimated GFR > 60.0 (>60) mL/min BUN/Creatinine Ratio 10.0 (6-22) Glucose 130 H (80-110) mg/dL Calcium 9.6 (8.4-10.2) mg/dL Magnesium 1.9 (1.6-2.3) mg/dL Total Creatine Kinase < 20 L (55-170) U/L CK-MB (CK-2) TNP CK-MB (CK-2) Rel Index TNP Troponin I < 0.012 (0.01-0.034) ng/mL Procalcitonin (<0.5) ng/mL Blood Type Antibody Screen 04/25/19 04/25/19 Range/Units 03:51 03:51 WBC (4.5-11.0) X10^3/uL RBC (4.5-5.9) X10^6/uL Hgb (13.5-17.5) g/dL Hct (41-53) % MCV (80-100) fL MCH (26-34) PG MCHC (30-36) % RDW (11.6-14.8) % Plt Count (150-400) X10^3/uL Neut % (Auto) (50-75) % Lymph % (Auto) (25-40) % [place] % (Auto) (3-14) % Eos % (Auto) (2-4) % Baso % (Auto) (0-2) % Neut # (Auto) (8308-7504) /uL Lymph # (Auto) (3884-6966) /uL [place] # (Auto) (0-900) /uL Eos # (Auto) (0-450) /uL Baso # (Auto) (0-100) /uL Platelet Estimate RBC Morphology PT (10.1-12.7) SECONDS INR (0.9-1.3) APTT (26.4-36.2) SECONDS Sodium (137-145) mmol/L Potassium (3.4-5.1) mmol/L Chloride (98-107) mmol/L Carbon Dioxide (22-32) mmol/L BUN (9-20) mg/dL Creatinine (0.66-1.25) mg/dL Estimated GFR (>60) mL/min BUN/Creatinine Ratio (6-22) Glucose (80-110) mg/dL Calcium (8.4-10.2) mg/dL Magnesium (1.6-2.3) mg/dL Total Creatine Kinase (55-170) U/L CK-MB (CK-2) CK-MB (CK-2) Rel Index Troponin I (0.01-0.034) ng/mL Procalcitonin 0.08 (<0.5) ng/mL Blood Type B Positive Antibody Screen Negative Urine Dip Bedside Urine Glucose Negative Bedside Urine Bilirubin - Negative Bedside Urine Ketone - Negative Urine Specific [place] 1.005 Bedside Urine Occult Blood - Negative Bedside Urine pH 7.5 Bedside Urine Protein - Negative Bedside Urine Urobilinogen - Negative Bedside Urine Nitrite - Negative Bedside Urine Leukocytes - Negative Esterase Critical Care Time Critical Care Time Critical Care Time: Yes Total Critical Care Time: 35 Attestation: The high probability of a clinically significant, sudden or life threatening deterioration of the [CV] system(s) required my full and direct attention, intervention and personal management. The aggregate critical care time was [35] minutes. This time is in addition to time spent performing reported procedures but includes the following: [x] Data Review and interpretation [x] Patient assessment and monitoring of vital signs [x] Documentation x Medication orders and management Discharge Plan Departure Patient Disposition: [facility] Clinical Impression: Cough with hemoptysis, Anticoagulation adequate Prescriptions: No Action acetaminophen 650 MG tablet extended release 650 mg PO Q8H Qty: 30 RF: 0 sertraline [Zoloft] 50 mg Tablet 75 mg PO DAILY RF: 0 sucralfate 100 mg/mL Suspension 5 ml PO QID Qty: 500 RF: 0 oxycodone 10 mg Tablet 10 mg PO Q4H PRN (Reason: pain) Qty: 180 RF: 0 tramadol 50 mg Tablet 50 mg PO BID PRN (Reason: pain) Qty: 60 RF: 0 levothyroxine 150 mcg Tablet 150 mcg PO DAILY Qty: 90 RF: 0 pregabalin [Lyrica] 50 mg Capsule 50 mg PO TID Qty: 90 RF: 1 albuterol sulfate [ProAir HFA] 90 MCG/PUFF HFA aerosol inhaler 1 puff INH Q6H RF: 0 ipratropium-albuterol 0.5 mg-3 mg(2.5 mg base)/3 mL Solution For Nebulization 3 ml INH Q4HR PRN (Reason: sob/wheezing) Qty: 40 RF: 0 esomeprazole magnesium 20 MG capsule,delayed release(DR/EC) 20 mg PO DAILY Qty: 90 RF: 1 cyclobenzaprine 10 mg tablet 10 mg PO TID PRN (Reason: muscle spasm) Qty: 10 RF: 0 lidocaine 4 % adhesive patch,medicated 1 patch TOP Q24H PRN (Reason: pain) Qty: 1 RF: 0 cyclobenzaprine 10 mg tablet 10 mg PO TID PRN (Reason: muscle spasm) Qty: 10 RF: 0 rivaroxaban 15 mg (42)- 20 mg (9) tablets,dose pack See Rx Instructions .ROUTE .COMPLEX Qty: 51 RF: 0
--- NOTE | 2019-04-25 03:36 | DI.RAD.S_ITS ---
PROCEDURE: XR CHEST 1V INDICATIONS: cough, hemoptysis, on xarelto, history of lung cancer TECHNIQUE: One view of the chest was acquired. COMPARISON: [facility], , XR CHEST 1V, 03/17/2019, 21:15. FINDINGS: Surgical changes and devices: Left chest wall Port-A-Cath is stable. Cervical spine fixation hardware are stable. Lungs and pleura: Cavitary lesion in the right lung apex is stable. No pleural effusions or pneumothorax. Mediastinum: Mediastinal contours appear normal. Heart size is normal. Bones and chest wall: No suspicious bony lesions. Overlying soft tissues appear unremarkable. IMPRESSION: No acute cardiopulmonary disease process. Dictated by: Savanna Byers MD, PhD on 04/25/2019 at 9:29 Approved by: Savanna Byers MD, PhD on 04/25/2019 at 9:29
[2019-04-25] MEDS: ALBUTEROL/IPRATROPIUM 3 ML AMPUL INH (03:47)
[2019-04-25] MEDS: TRANEXAMIC ACID 1,000 MG VIAL 1000 MG MM (04:03)
[2019-04-25 04:05] LABS: Basophils Absolute Auto 100 /uL (0-100); Basophils Percent Auto 0.8 % (0-2); Eosinophils Absolute Auto 200 /uL (0-450); Eosinophils Percent Auto 1.5 % (2-4); Hematocrit 40.5 % (41-53); Hemoglobin 13.7 g/dL (13.5-17.5); Lymphocytes Absolute Auto 1100 /uL (1100-4500); Lymphocytes Percent Auto 7.5 % (25-40); Mean Corpuscular HGB Conc 33.9 % (30-36); Mean Corpuscular Hemoglobin 27.4 PG (26-34); Mean Corpuscular Volume 80.8 fL (80-100); Monocytes Absolute Auto 900 /uL (0-900); Neutrophils Absolute Auto 12000 /uL (1500-7000); Neutrophils Percent Auto 84.2 % (50-75); Platelet Count 668 X10^3/uL (150-400); Red Blood Cell Count 5.01 X10^6/uL (4.5-5.9); Red Cell Distribution Width 14.3 % (11.6-14.8); White Blood Cell Count 14.3 X10^3/uL (4.5-11.0)
[2019-04-25 04:06] LABS: Add Manual Diff / Slide Review SLIDE REVIEW
[2019-04-25 04:09] LABS: INR 1.8 (0.9-1.3); Prothrombin Time 21.2 SECONDS (10.1-12.7)
[2019-04-25 04:12] LABS: Blood Urea Nitrogen 10 mg/dL (9-20); Calcium 9.6 mg/dL (8.4-10.2); Carbon Dioxide 25 mmol/L (22-32); Chloride 101 mmol/L (98-107); Creatine Kinase < 20 U/L (55-170); Estimated Glomerular Filt Rate > 60.0 mL/min (>60); Glucose 130 mg/dL (80-110); HEMOLYSIS < 15 (0-50); Magnesium 1.9 mg/dL (1.6-2.3); PTT Partial Thromboplastin Tim 44 SECONDS (26.4-36.2); Potassium 4.4 mmol/L (3.4-5.1); Sodium 136 mmol/L (137-145)
--- NOTE | 2019-04-25 04:19 | DI.CT.S_ITS ---
PROCEDURE: CT ANGIO CHEST PE PROTOCOL INDICATIONS: pleuritic chest pain, hemoptysis, known Deep vein thrombosis, history of cancer TECHNIQUE: After the administration of intravenous contrast, 2 mm thick sections acquired from the pulmonary apices to the posterior costophrenic angles. 3-dimensional maximum intensity projection (MIP) coronal and sagittal reformats were then acquired through the thorax. For radiation dose reduction, the following was used: automated exposure control, adjustment of mA and/or kV according to patient size. COMPARISON: [facility], CT, CT CHEST W CON, 11/21/2018, 13:53. [facility], CT, CT CHEST WITH CONTRAST, 07/07/2018, 12:54. [facility], CT, CT CHEST WO CON, 03/09/2018, 15:10. [facility], CT, CT CHEST WO CON, 02/09/2018, 14:28. [facility], [place], [place] PET CT FUSION SKULL 2 THIGH, 09/29/2017, 15:50. [facility], CT, CT ANGIO CHEST PE PROTOCOL, 01/11/2018, 11:05. FINDINGS: Image quality: Excellent. Pulmonary arteries: Pulmonary arteries are normal in size, and demonstrate no intraluminal filling defects to suggest central pulmonary embolism. Lungs and pleura: Redemonstration of large, thickwalled cavitary lesion involving the right upper lobe with air-fluid level and internal debris. Overall, appearance is similar to 11/21/18. There is also redemonstration multiple subcentimeter ill-defined left upper lobe pulmonary nodules as grossly unchanged appearance. Right lower lobe 8mm pulmonary nodule image 213/5 and appears unchanged Scattered subsegmental atelectasis and/or scarring. No new consolidation. Central airway thickening. No left pleural effusion Mediastinum: Heart size is normal, without pericardial effusion. Coronary artery calcifications are present. No mediastinal or hilar adenopathy. Thoracic aorta is normal in caliber and enhancement. Esophagus is normal in caliber, without hiatal hernia. Bones and chest wall: No suspicious bony lesions. Unchanged appearance of mid thoracic compression fractures and diffuse spondylosis. No axillary or supraclavicular adenopathy. Partially visualized left renal cyst. IMPRESSION: No evidence of pulmonary embolism Redemonstration of large thickwalled cavitary lesion involving the right upper lobe with internal debris and air-fluid level. Overall, similar appearance to prior studies. Additional chronic and incidental findings as above. Findings concordant with the preliminary study interpretation provided at the time of the exam. Dictated by: Esau Kidd M.D. on 04/25/2019 at 8:37 Approved by: Esau Kidd M.D. on 04/25/2019 at 8:58
[2019-04-25 04:24] LABS: Troponin I < 0.012 ng/mL (0.01-0.034)
[2019-04-25 04:28] LABS: Procalcitonin 0.08 ng/mL (<0.5)
[2019-04-25 07:00] LABS: RBC Morphology Normal Morphology
[2019-04-25 07:01] LABS: Platelet Estimate Increased on smear
[2019-04-25] MEDS: HYDROMORPHONE 0.5 MG INJ IV ×2 (07:54→09:24)
== END 2019-04-25 09:35 | disposition short-term general hospital (02) ==
PROVIDERS: Emergency Provider Emergency Medicine
DX: R04.2 Hemoptysis (principal); Z79.01 Long term (current) use of anticoagulants
CPT/HCPCS: 36415; 71045; 71275; 80048; 81003; 82550; 83735; 84145; 84484; 85025; 85610; 85730; 86850; 86900; 86901; 93005; 93010; 94640; 96374; 96376; 99285; 99291; J1170; Q9967

== ENCOUNTER 2019-05-06 03:42 | Observation (INO) | payer OTHER, MEDICAID, SELFPAY ==
[2018-04-11 14:12] VITALS: BMI 19.3
[2019-05-06] VITALS (17 sets, daily range): BP systolic 91–124; BP diastolic 44–69; PULSE 72–120; RESP 16–30; TEMP 36.7–38.5; O2SAT 89–97; BMI 19.1
--- NOTE | 2019-05-06 03:58 | DI.RAD.S_ITS ---
PROCEDURE: XR CHEST 1V INDICATIONS: fever, short of breath, hx lung ca with cavitary lesion known, had flu TECHNIQUE: One view of the chest was acquired. COMPARISON: [facility], CT, CT ANGIO CHEST PE PROTOCOL, 05/06/2019, 5:13. [facility], CT, CT ANGIO CHEST PE PROTOCOL, 04/25/2019, 4:18. [facility], CR, XR CHEST 1V, 03/17/2019, 21:15. [facility], CR, XR CHEST 1V, 04/25/2019, 3:41. FINDINGS: Surgical changes and devices: There is a stable left-sided chest port. Lower cervical spine fixation hardware is seen. Lungs and pleura: Mild component of fine opacity can be seen involving the right upper lobe, with pleural thickening seen. Lungs otherwise appear clear. No pneumothorax or pleural effusions are seen. Mediastinum: The cardiac contours are within normal limits. The aorta demonstrates calcification and tortuosity. Bones and chest wall: No suspicious bony lesions. Age-appropriate bony degenerative changes are seen. Overlying soft tissues appear unremarkable. IMPRESSION: Stable right upper lobe lesion, with pleural thickening, which is better displayed on subsequently performed chest CT. Postoperative and degenerative changes are seen. Dictated by: Kelton Camilo M.D. on 05/06/2019 at 9:15 Approved by: Kelton Camilo M.D. on 05/06/2019 at 9:17
--- NOTE | 2019-05-06 03:59 | ED_ITS ---
HPI - Fever General Chief Complaint: Fever Stated Complaint: 103.5 temp after flu/pneumonia shots Time Seen by Provider: 05/06/19 03:43 Source: patient and old records reviewed Mode of arrival: Ambulatory Limitations: no limitations History of Present Illness HPI Narrative: This is a 64-year-old male who comes to the emergency department with complaint of fever. Patient states he had influenza and pneumonia shot earlier during the afternoon. He states he then started developed fever and was 103 F at home. Patient states he felt a little ?squiggly? at home before the shots but then started feeling very warm. He states he has a little bit of a headache, no neck pain. Patient has chronic chest pain which has not changed in nature. It has not worsened. He states this is secondary to metastatic lesions in the bone of his chest. Patient states he feels more short of breath than normal. He has not had any productive sputum. Patient has had 2 episodes of vomiting today one which was before his shots. No blood. He has had no diarrhea and had normal bowel movement. No urinary issues. Patient has regained the swelling in his extremities. 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 Although he had treatment and had on development of initial metastatic disease. He developed a large cavitary lesion in January of 2018 followed by an infection/post obstructive pneumonia and treated with antibiotics. Patient has had his monoclonal antibody held since February of 2018 due to concern for possible pneumonitis. He was diagnosed with a DVT in the last 2 months, developed hemoptysis was transferred to [facility] for they had him stop his anticoagulant he had bronchoscopy but unclear if they felt he was shows having fleeting secondary to the anticoagulant the cavitary lesion or if he had any additional infection. Patient follows with Infectious Disease and pulmonology at [facility] for his cavitary lung lesion. Related Data Home Medications Medication Instructions Recorded Confirmed albuterol sulfate [ProAir HFA] 1 puff INH Q6H 03/18/18 04/17/19 sertraline [Zoloft] 75 mg PO DAILY 06/23/18 04/17/19 Previous Rx's Medication Instructions Recorded acetaminophen 650 mg PO Q8H #30 tab 02/16/17 ipratropium-albuterol 3 ml INH Q4HR PRN #40 ml 03/20/18 esomeprazole magnesium 20 mg PO DAILY #90 cap 05/19/18 sucralfate 5 ml PO QID #500 ml 06/23/18 cyclobenzaprine 10 mg PO TID PRN #10 tab 02/27/19 cyclobenzaprine 10 mg PO TID PRN #10 tab 03/17/19 lidocaine 1 patch TOP Q24H PRN #1 each 03/17/19 rivaroxaban See Rx Instructions .ROUTE 04/07/19 .COMPLEX #51 each levothyroxine 150 mcg PO DAILY #90 tab 04/11/19 pregabalin [Lyrica] 50 mg PO TID #90 cap 04/11/19 tramadol 50 mg PO BID PRN #60 tab 05/02/19 oxycodone 10 mg PO Q4H PRN #180 tab 05/04/19 Allergies Allergy/AdvReac Type Severity Reaction Status Date / Time aspirin [ASPIRIN] AdvReac Mild NAUSEA Verified 04/07/19 08:14 Review of Systems Review of Systems ROS Unobtainable: All systems reviewed & are unremarkable except as noted in HPI and below Patient History Medical History COPD (chronic obstructive pulmonary disease) (Chronic) Depression (Acute) DVT of upper extremity (deep vein thrombosis) (Acute) GERD (gastroesophageal reflux disease) (Acute) Hypothyroid (Chronic) Lung cancer, primary, with metastasis from lung to other site (Chronic) PEG (percutaneous endoscopic gastrostomy) adjustment/replacement/removal (Acute) Peripheral neuropathy (Acute) Surgical History History of lung biopsy (Acute) Social History household members: spouse and caregiver Smoking Status: Current every day smoker alcohol intake: former Smoking Status: Current every day smoker alcohol intake frequency: 0-2 drinks per day Substance Use Type: does not use Exam Narrative Exam Narrative: GEN: Thin male, alert and oriented x 3, patient appears to be in mild distress. HEENT: Atraumatic, pupils are equal round reactive to light, extraocular movements are intact, nares are clear. Negative kernig's and Brudzinski's HEART: Regular rate and rhythm without murmur, clicks, rubs. Pulses are equal in bilateral upper extremities. No swelling in upper lower extremities. LUNGS:Lungs decreased on right, no wheezes, rales, crackles, chest moves symmetrically, no tachypnea, no accessory muscle use. Speaks in full sentences. ABD:bowel sounds normal, soft, non-tender, no guarding, rebound, rigidity, no m asses noted, no hepatosplenomegaly :No CVA tenderness MSCL: Non-tender, no muscle atrophy, muscles strength 5/5 upper and lower extremities, full range of motion, patient uses a can but ambulates with minimal difficulty. NEURO:CN 2-12 intact, sensation normal SKIN: no rash, no erythema, no petechiae. Initial Vital Signs Initial Vital Signs: Vital Signs Temperature 100.4 F H 05/06/19 03:53 Pulse Rate 120 H 05/06/19 03:53 Respiratory Rate 24 05/06/19 03:53 Blood Pressure 124/69 05/06/19 03:53 Pulse Oximetry 93 05/06/19 03:53 Scores qSOFA Altered Mental Status (GCS <15): No Respiratory rate greater than/equal to 22: Yes Systolic blood pressure less than or equal to 100: No qSOFA Total: 1 0-1 Not High Risk 1-3 High risk Course Orders Ordered: ED Orders 05/06/19 03:58 XR chest 1V Stat 05/06/19 04:05 Complete Blood Count AUTO DIFF Stat Comprehensive Metabolic Panel Stat Lactate (Lactic Acid) Stat Partial Thromboplastin Time Stat Procalcitonin Stat Prothrombin Time INR Stat 05/06/19 04:10 Influenza A & B (PCR) Stat 05/06/19 04:25 Blood Culture Stat 05/06/19 04:37 CT angio chest PE protocol Stat 05/06/19 06:04 Arterial Blood Gas Stat 05/06/19 06:20 Urinalysis and Microscopic Stat Piperacillin/Tazobactam/Dextrose (Zosyn) 4.5 gm in 100 mls @ 200 mls/hr IV NOW ONE Stop: 05/06/19 07:08 Last Admin: 05/06/19 06:52 Dose: 200 mls/hr Documented by: SONIYAFARTaina Discontinued Medications Acetaminophen (Tylenol) 975 mg PO NOW ONE Stop: 05/06/19 04:00 Last Admin: 05/06/19 04:16 Dose: 975 mg Documented by: [email or web address] Sodium Chloride (Normal Saline 0.9%) 1,860 mls @ 620 mls/hr 30 ml/kg infuse over 3 hr (1860 ml) IV NOW ONE Stop: 05/06/19 06:57 Last Admin: 05/06/19 04:17 Dose: 620 mls/hr Documented by: MARKUSL Oxycodone HCl (Percolone) 10 mg PO NOW ONE Stop: 05/06/19 04:54 Last Admin: 05/06/19 04:56 Dose: 10 mg Documented by: OBI Vital Signs Vital signs: Vital Signs - 8 hr 05/06/19 03:53 05/06/19 04:16 05/06/19 04:30 Temperature 100.4 F H 100.5 F H Pulse Rate 120 H 104 H Respiratory Rate 24 26 H Blood Pressure 124/69 Blood Pressure [Left Arm] 113/57 L Pulse Oximetry 93 92 05/06/19 05:01 05/06/19 05:10 05/06/19 06:30 Temperature 98.8 F 98.8 F Pulse Rate 86 Respiratory Rate 21 Blood Pressure Blood Pressure [Left Arm] 114/59 L Pulse Oximetry 97 MDM - Fever Lab Data Attestation: I reviewed the patient's lab results. Result diagrams: 05/06/19 04:05 05/06/19 04:05 Labs: Lab Results 05/06/19 05/06/19 05/06/19 Range/Units 04:05 04:05 04:05 WBC 14.6 H (4.5-11.0) X10^3/uL RBC 4.33 L (4.5-5.9) X10^6/uL Hgb 11.7 L (13.5-17.5) g/dL Hct 34.8 L (41-53) % MCV 80.3 (80-100) fL MCH 26.9 (26-34) PG MCHC 33.5 (30-36) % RDW 15.0 H (11.6-14.8) % Plt Count 510 H (150-400) X10^3/uL Neut % (Auto) 76.0 H (50-75) % Lymph % (Auto) 9.4 L (25-40) % [place] % (Auto) 8.4 (3-14) % Eos % (Auto) 2.7 (2-4) % Baso % (Auto) 3.5 H (0-2) % Neut # (Auto) 90352 H (8102-0769) /uL Lymph # (Auto) 1400 (2406-2735) /uL [place] # (Auto) 1200 H (0-900) /uL Eos # (Auto) 400 (0-450) /uL Baso # (Auto) 500 H (0-100) /uL PT 14.4 H (10.1-12.7) SECONDS INR 1.2 (0.9-1.3) APTT 34 D (26.4-36.2) SECONDS ABG pH (7.35-7.45) ABG pCO2 (35-45) mmHg ABG pO2 (80-100) mmHg ABG HCO3 (22-26) mmol/L ABG Total CO2 (21-31) mmol/L ABG O2 Saturation (95-100) % ABG Base Excess (-2-2) mmol/L FiO2 Sodium (137-145) mmol/L Potassium (3.4-5.1) mmol/L Chloride (98-107) mmol/L Carbon Dioxide (22-32) mmol/L BUN (9-20) mg/dL Creatinine (0.66-1.25) mg/dL Estimated GFR (>60) mL/min BUN/Creatinine Ratio (6-22) Glucose (80-110) mg/dL Lactate (0.7-2.1) mmol/L Calcium (8.4-10.2) mg/dL Total Bilirubin (0.2-1.3) mg/dL AST (17-59) IU/L ALT (<50) IU/L Alkaline Phosphatase (38-126) U/L Total Protein (6.3-8.2) g/dL Albumin (3.5-5.0) g/dL Globulin (1.7-4.1) g/dL Albumin/Globulin Ratio (1.0-2.8) Procalcitonin 0.10 (<0.5) ng/mL Urine Color Urine Appearance Urine pH (4.5-8.0) Ur Specific [place] (1.000-1.035) Urine Protein (Negative) Urine Glucose (UA) (Negative) g/dL Urine Ketones (NEGATIVE) Urine Occult Blood (Negative) Urine Nitrate (Negative) Urine Bilirubin (NEGATIVE) Urine Urobilinogen (0.2) E.U./dL Ur Leukocyte Esterase (NEGATIVE) Urine RBC (0-5/HPF) Urine WBC (0-5/HPF) Urine Bacteria (None) Ur Culture Indicated? Micro UA Comment Influenza A (RT-PCR) (NEGATIVE) Influenza B (RT-PCR) (NEGATIVE) 05/06/19 05/06/19 05/06/19 Range/Units 04:05 04:05 04:10 WBC (4.5-11.0) X10^3/uL RBC (4.5-5.9) X10^6/uL Hgb (13.5-17.5) g/dL Hct (41-53) % MCV (80-100) fL MCH (26-34) PG MCHC (30-36) % RDW (11.6-14.8) % Plt Count (150-400) X10^3/uL Neut % (Auto) (50-75) % Lymph % (Auto) (25-40) % [place] % (Auto) (3-14) % Eos % (Auto) (2-4) % Baso % (Auto) (0-2) % Neut # (Auto) (4904-0065) /uL Lymph # (Auto) (3389-3254) /uL [place] # (Auto) (0-900) /uL Eos # (Auto) (0-450) /uL Baso # (Auto) (0-100) /uL PT (10.1-12.7) SECONDS INR (0.9-1.3) APTT (26.4-36.2) SECONDS ABG pH (7.35-7.45) ABG pCO2 (35-45) mmHg ABG pO2 (80-100) mmHg ABG HCO3 (22-26) mmol/L ABG Total CO2 (21-31) mmol/L ABG O2 Saturation (95-100) % ABG Base Excess (-2-2) mmol/L FiO2 Sodium 133 L (137-145) mmol/L Potassium 4.6 (3.4-5.1) mmol/L Chloride 97 L (98-107) mmol/L Carbon Dioxide 26 (22-32) mmol/L BUN 17 (9-20) mg/dL Creatinine 1.10 (0.66-1.25) mg/dL Estimated GFR > 60.0 (>60) mL/min BUN/Creatinine Ratio 15.5 (6-22) Glucose 134 H (80-110) mg/dL Lactate 1.8 (0.7-2.1) mmol/L Calcium 9.5 (8.4-10.2) mg/dL Total Bilirubin 0.4 (0.2-1.3) mg/dL AST 24 (17-59) IU/L ALT 14 (<50) IU/L Alkaline Phosphatase 114 (38-126) U/L Total Protein 7.9 (6.3-8.2) g/dL Albumin 3.9 (3.5-5.0) g/dL Globulin 4.0 (1.7-4.1) g/dL Albumin/Globulin Ratio 1.0 (1.0-2.8) Procalcitonin (<0.5) ng/mL Urine Color Urine Appearance Urine pH (4.5-8.0) Ur Specific [place] (1.000-1.035) Urine Protein (Negative) Urine Glucose (UA) (Negative) g/dL Urine Ketones (NEGATIVE) Urine Occult Blood (Negative) Urine Nitrate (Negative) Urine Bilirubin (NEGATIVE) Urine Urobilinogen (0.2) E.U./dL Ur Leukocyte Esterase (NEGATIVE) Urine RBC (0-5/HPF) Urine WBC (0-5/HPF) Urine Bacteria (None) Ur Culture Indicated? Micro UA Comment Influenza A (RT-PCR) Flu a negative (NEGATIVE) Influenza B (RT-PCR) Flu b negative (NEGATIVE) 05/06/19 05/06/19 Range/Units 06:04 06:20 WBC (4.5-11.0) X10^3/uL RBC (4.5-5.9) X10^6/uL Hgb (13.5-17.5) g/dL Hct (41-53) % MCV (80-100) fL MCH (26-34) PG MCHC (30-36) % RDW (11.6-14.8) % Plt Count (150-400) X10^3/uL Neut % (Auto) (50-75) % Lymph % (Auto) (25-40) % [place] % (Auto) (3-14) % Eos % (Auto) (2-4) % Baso % (Auto) (0-2) % Neut # (Auto) (5328-2646) /uL Lymph # (Auto) (0315-9374) /uL [place] # (Auto) (0-900) /uL Eos # (Auto) (0-450) /uL Baso # (Auto) (0-100) /uL PT (10.1-12.7) SECONDS INR (0.9-1.3) APTT (26.4-36.2) SECONDS ABG pH 7.38 (7.35-7.45) ABG pCO2 42.4 (35-45) mmHg ABG pO2 54 L (80-100) mmHg ABG HCO3 25 (22-26) mmol/L ABG Total CO2 26 (21-31) mmol/L ABG O2 Saturation 87 L (95-100) % ABG Base Excess 0.0 (-2-2) mmol/L FiO2 21 Sodium (137-145) mmol/L Potassium (3.4-5.1) mmol/L Chloride (98-107) mmol/L Carbon Dioxide (22-32) mmol/L BUN (9-20) mg/dL Creatinine (0.66-1.25) mg/dL Estimated GFR (>60) mL/min BUN/Creatinine Ratio (6-22) Glucose (80-110) mg/dL Lactate (0.7-2.1) mmol/L Calcium (8.4-10.2) mg/dL Total Bilirubin (0.2-1.3) mg/dL AST (17-59) IU/L ALT (<50) IU/L Alkaline Phosphatase (38-126) U/L Total Protein (6.3-8.2) g/dL Albumin (3.5-5.0) g/dL Globulin (1.7-4.1) g/dL Albumin/Globulin Ratio (1.0-2.8) Procalcitonin (<0.5) ng/mL Urine Color Yellow Urine Appearance Clear Urine pH 5.0 (4.5-8.0) Ur Specific [place] <=1.005 (1.000-1.035) Urine Protein Negative (Negative) Urine Glucose (UA) Negative (Negative) g/dL Urine Ketones Negative (NEGATIVE) Urine Occult Blood Negative (Negative) Urine Nitrate Negative (Negative) Urine Bilirubin Negative (NEGATIVE) Urine Urobilinogen 0.2 (0.2) E.U./dL Ur Leukocyte Esterase Negative (NEGATIVE) Urine RBC None seen (0-5/HPF) Urine WBC None seen (0-5/HPF) Urine Bacteria None seen (None) Ur Culture Indicated? Cult not indicated Micro UA Comment Microscopic normal Influenza A (RT-PCR) (NEGATIVE) Influenza B (RT-PCR) (NEGATIVE) ABG Data ABG results: PH of 7.38, pCO2 of 42 with a PaO2 of 54 Na bicarb of 25. Attestation: I personally reviewed and interpreted this ABG as follows: Interpretation: Patient has hypoxemia but otherwise normal ABG. Patient does not have any prior ABGs for comparison. Imaging Data Chest x-ray: My Impression: cavitary lesion noted, no obvious infiltate, no pleural effusion, CXR appears similar to prior. CT scan - chest: Radiologist's Impression: No pulmonary embolism. Multiple chronic findings with thick walled right upper lobe cavitary lesion and mediastinal adenopathy which is similar in size with a small amount of layering fluid. No new lung consolidation or pneumonia. MDM Narrative Medical decision making narrative: Patient comes in with fever and complaint of increased SOB. Patient did have influenza and pneumovax immunizations earlier in the day but was feeling a little under the weather prior to immunizations. White count is 14, base of son also neutrophils. Sodium is 133 with a chloride of 97 and glucose of 134 with regular renal function. Procalcitonin is less than 0.10. Blood cultures are pending. Influenza was negative. Patient had chest x-ray with no obvious infiltrate or change. CTA was ordered with patient's complex medical history unknown cavitary lesion to evaluate for infection. Patient was given home dose of oxycodone which he takes for chronic pain from his bone lesions. Patient's temperature improved after tylenol. HR was 104 and with WBC of 14 meets septic criteria. HR in the 90's. Patient intermittently has low O2 in the 80's and on evaluation of prior vitals does not appear to be low typically. ABG shows normal acid/base but does have PaO2 that is [address] on O2. CTA shows stable chest with multiple chronic findings, no pe or clear source of new infection. Consulted with patient's pulmonology team at [facility]. Spoke with Dr. Tatum, reviewed patient's case, history and labs. She recommends panculture, starting antibiotics and admission. Does not feel that patient needs transfer for dedicated pulmonary service at this time but if there are worsening symptoms or issues to recontact and they will be happy to care for patient. Spoke with [facility] [employer] S[facility] Barbosa who accepts for admission. Patient updated on findings and pulmonology recommendations as well as plan for admission. Patient is agreeable. He was driven here by a friend Nikhil who is sleeping out in the parking lot and asked us if we can let her know so that she can go home. We discussed that exact source is not determined yet but suspicious for pulmonary with his history. Discharge Plan Departure Patient Disposition: Admitted As Inpatient Clinical Impression: Sepsis Admit Date/Time: 05/06/19 06:44 Admit Provider: Yash Barbosa
[2019-05-06] MEDS: ACETAMINOPHEN 325 MG TABLET 975 MG PO (04:16)
[2019-05-06] MEDS: SODIUM CHLORIDE 0.9% 1,860 ML 620 ML IV (04:17)
[2019-05-06 04:30] LABS: Lactate (Lactic Acid) 1.8 mmol/L (0.7-2.1)
[2019-05-06 04:32] LABS: Add Manual Diff / Slide Review NO; Basophils Absolute Auto 500 /uL (0-100); Basophils Percent Auto 3.5 % (0-2); Eosinophils Absolute Auto 400 /uL (0-450); Eosinophils Percent Auto 2.7 % (2-4); Hematocrit 34.8 % (41-53); Hemoglobin 11.7 g/dL (13.5-17.5); Lymphocytes Absolute Auto 1400 /uL (1100-4500); Lymphocytes Percent Auto 9.4 % (25-40); Mean Corpuscular HGB Conc 33.5 % (30-36); Mean Corpuscular Hemoglobin 26.9 PG (26-34); Mean Corpuscular Volume 80.3 fL (80-100); Monocytes Absolute Auto 1200 /uL (0-900); Monocytes Percent Auto 8.4 % (3-14); Neutrophils Absolute Auto 11100 /uL (1500-7000); Platelet Count 510 X10^3/uL (150-400); Red Blood Cell Count 4.33 X10^6/uL (4.5-5.9); White Blood Cell Count 14.6 X10^3/uL (4.5-11.0)
--- NOTE | 2019-05-06 04:37 | DI.CT.S_ITS ---
PROCEDURE: CT ANGIO CHEST PE PROTOCOL INDICATIONS: fever, had immunizations today, hx cavitary lesion, ? infx TECHNIQUE: After the administration of intravenous contrast, 2 mm thick sections acquired from the pulmonary apices to the posterior costophrenic angles. 3-dimensional maximum intensity projection (MIP) coronal and sagittal reformats were then acquired through the thorax. For radiation dose reduction, the following was used: automated exposure control, adjustment of mA and/or kV according to patient size. COMPARISON: Located Within [facility], CT, CT ANGIO CHEST PE PROTOCOL, 04/25/2019, 4:18. Located Within [facility], CT, CT CHEST W CON, 11/21/2018, 13:53. Located Within [facility], CT, CT CHEST WO CON, 02/09/2018, 14:28. Located Within [facility], CT, CT CHEST WO CON, 03/09/2018, 15:10. Located Within [facility], CR, XR CHEST 1V, 04/25/2019, 3:41. Located Within [facility], CR, XR CHEST 1V, 05/06/2019, 4:23. FINDINGS: Image quality: Excellent. Pulmonary arteries: Pulmonary arteries are normal in size, and demonstrate no intraluminal filling defects to suggest central pulmonary embolism. Lungs and pleura: Within the right upper lobe, there is again seen a cavitary lesion with an air-fluid level. This lesion demonstrates thick vigil. It is stable compared to prior studies. Emphysematous changes are seen. Scattered areas of subpleural process/scarring can be seen. No geremias pneumothorax. No pleural effusions. Central airways are patent. Mediastinum: Heart size is normal, without pericardial effusion. No mediastinal or hilar adenopathy. Thoracic aorta is normal in caliber and enhancement. Esophagus is normal in caliber, without hiatal hernia. Bones and chest wall: No suspicious bony lesions. Remote left posterior rib fractures are seen. Several levels of chronic anterior wedge deformity are seen, with associated accentuated thoracic kyphosis. Thyroid gland is not well-seen. No axillary or supraclavicular adenopathy. There is a left-sided chest port seen, with the tip reaching the superior aspect of the superior vena cava. There is cervical spine fixation hardware is seen. Abdomen: Visualized upper abdominal solid organs appear normal in the early arterial phase of enhancement. IMPRESSION: Negative for pulmonary embolism. Stable thickwalled cavitary lesion involving the right upper lobe. Incidental note is made of: Cervical spine fixation hardware Emphysematous changes Stable left-sided chest port Remote left posterior rib fractures Stable anterior wedge deformities, with associated accentuated thoracic kyphosis Note: No significant discrepancy from the preliminary report. Dictated by: Kelton Camilo M.D. on 05/06/2019 at 9:17 Approved by: Kelton Camilo M.D. on 05/06/2019 at 9:21
[2019-05-06 04:44] LABS: Alanine Aminotransferase 14 IU/L (<50); Albumin 3.9 g/dL (3.5-5.0); Alkaline Phosphatase 114 U/L (38-126); Aspartate Aminotransferase 24 IU/L (17-59); BUN Creatinine Ratio 15.5 (6-22); Bilirubin Total 0.4 mg/dL (0.2-1.3); Blood Urea Nitrogen 17 mg/dL (9-20); Calcium 9.5 mg/dL (8.4-10.2); Carbon Dioxide 26 mmol/L (22-32); Chloride 97 mmol/L (98-107); Estimated Glomerular Filt Rate > 60.0 mL/min (>60); Glucose 134 mg/dL (80-110); HEMOLYSIS < 15 (0-50); Potassium 4.6 mmol/L (3.4-5.1); Sodium 133 mmol/L (137-145); Total Protein 7.9 g/dL (6.3-8.2)
[2019-05-06] MEDS: OXYCODONE IR 5 MG TABLET 10 MG PO (04:56)
[2019-05-06 04:59] LABS: Influenza A - CEPHEID Flu A NEGATIVE (NEGATIVE); Influenza B - CEPHEID Flu B NEGATIVE (NEGATIVE)
[2019-05-06 05:04] LABS: PTT Partial Thromboplastin Tim 34 SECONDS (26.4-36.2)
[2019-05-06 05:08] LABS: INR 1.2 (0.9-1.3); Prothrombin Time 14.4 SECONDS (10.1-12.7)
[2019-05-06 06:33] LABS: HCO3 ABG 25 mmol/L (22-26); PCO2 ABG 42.4 mmHg (35-45); PO2 ABG 54 mmHg (80-100); pH ABG 7.38 (7.35-7.45)
[2019-05-06 06:34] LABS: Fractionated Inspired Oxygen 21; Oxygen Saturation ABG 87 % (95-100); TCO2 ABG 26 mmol/L (21-31)
[2019-05-06 06:34] LABS: Bacteria Urine None Seen; RBC Urine None Seen (0-5/HPF); WBC Urine None Seen (0-5/HPF)
[2019-05-06 06:35] LABS: Appearance Urine UA CLEAR; Bilirubin Urine UA NEGATIVE (NEGATIVE); Color Urine UA YELLOW; Glucose Urine UA NEGATIVE (Negative); Ketones Urine UA NEGATIVE (NEGATIVE); Leukocyte Esterase Urine UA NEGATIVE (NEGATIVE); Nitrite Urine UA NEGATIVE (Negative); Occult Blood Urine UA NEGATIVE (Negative); Protein Urine UA NEGATIVE (Negative); Specific Gravity Urine UA <=1.005 (1.000-1.035); Urobilinogen Urine UA 0.2 E.U./dL (0.2)
[2019-05-06 06:52] LABS: Culture Indicated Urine Cult Not Indicated; Urine Comments Microscopic Normal
[2019-05-06] MEDS: PIPERACILLIN-TAZO 4.5 GM/100 ML FROZ.PIGGY IV (06:52)
--- NOTE | 2019-05-06 08:22 | PM.HP.1 ---
History of Present Illness History of Present Illness Date Patient Seen: 05/06/19 Time Patient Seen: 08:00 Chief complaint: 103.5 temp after flu/pneumonia shots Narrative: Patient is a 64-year-old male with history of poorly differentiated metastatic adenocarcinoma, status post nivolumab 11/06/2015-02/23/2018, history of chronic right upper lobe cavitary lesion, presented to emergency department due to fever. Patient reports low-grade fever for the past few days up to 100.3. Yesterday afternoon he had a flu shot and Pneumovax. Subsequently he spiked a temp of 103? at home. He has had some malaise but otherwise has felt close to baseline with chronic chest pain and a chronic cough. He was diagnosed with a right axillary vein chronic DVT on 04/07/2019 when he presented to the ER with right arm pain. He was started on Xarelto but then developed hemoptysis which resulted in ER visit on 04/25/2019. He was transferred to [facility] where they kept him for 2 days and performed bronchoscopy. Records not available but patient states they were concerned a fistula was developing from his bronchial to the right upper lobe cavitary lesion. Patient was taken off of Xarelto. Patient states they also recommended he stop his Augmentin. Patient has been on suppressive therapy with Augmentin at direction of Dr. Joseph Baron infectious disease specialist at [facility]. In January 2018 he developed a cavitary right upper lobe lesion. He had bronchoscopy with negative BAL cultures and PCR. He was started empirically on Augmentin around that time and had remained on Augmentin up until his recent admission to [facility]. Patient unclear why he was told to stop Augmentin. He denies any current hemoptysis, discolored sputum, worsening cough, abdominal pain, vomiting, diarrhea, urinary discomfort or frequency. He does take oxycodone as needed for bone metastases. On ER workup his WBC was 14.6 with 76% neutrophils, procalcitonin 0.10, lactate 1.8, urinalysis normal, initial BP 124/69, respirations 24, pulse 120, temp 100.4?. Subsequent heart rate quickly came down. O2 sat noted 93% on room air. However on blood gas PO2 54, pCO2 42.4, pH 7.38, O2 sat 87% on room air. Chest x-ray showed chronic right upper lobe cavitary lesion, no focal infiltrate, no new findings. Chest CTA no pulmonary embolism, multiple chronic findings with thick-walled right upper lobe cavitary lesion with mediastinal adenopathy, no new lung consolidation or pneumonia. Patient History Medical History COPD (chronic obstructive pulmonary disease) (Chronic) Depression (Acute) DVT of upper extremity (deep vein thrombosis) (Acute) GERD (gastroesophageal reflux disease) (Acute) Hypothyroid (Chronic) Lung cancer, primary, with metastasis from lung to other site (Chronic) PEG (percutaneous endoscopic gastrostomy) adjustment/replacement/removal (Acute) Peripheral neuropathy (Acute) Surgical History History of lung biopsy (Acute) Family & Social History Social History: household members spouse,caregiver Safety & Behavioral: Feels Safe in Current Yes Environment Tobacco & Substance use: Tobacco type cigarettes Smoking Status Current every day smoker alcohol intake former alcohol intake frequency 0-2 drinks per day Substance Use Type does not use Meds Home Medications and Allergies Home Medications Medication Instructions Recorded Confirmed Type acetaminophen 650 mg PO Q8H #30 tab 02/16/17 04/17/19 Rx albuterol sulfate [ProAir HFA] 1 puff INH Q6H 03/18/18 04/17/19 History ipratropium-albuterol 3 ml INH Q4HR PRN #40 ml 03/20/18 04/17/19 Rx esomeprazole magnesium 20 mg PO DAILY #90 cap 05/19/18 04/17/19 Rx sertraline [Zoloft] 75 mg PO DAILY 06/23/18 04/17/19 History sucralfate 5 ml PO QID #500 ml 06/23/18 04/17/19 Rx cyclobenzaprine 10 mg PO TID PRN #10 tab 02/27/19 04/17/19 Rx cyclobenzaprine 10 mg PO TID PRN #10 tab 03/17/19 04/17/19 Rx lidocaine 1 patch TOP Q24H PRN #1 each 03/17/19 04/17/19 Rx rivaroxaban See Rx Instructions .ROUTE 04/07/19 04/17/19 Rx .COMPLEX #51 each levothyroxine 150 mcg PO DAILY #90 tab 04/11/19 04/17/19 Rx pregabalin [Lyrica] 50 mg PO TID #90 cap 04/11/19 04/17/19 Rx tramadol 50 mg PO BID PRN #60 tab 05/02/19 Rx oxycodone 10 mg PO Q4H PRN #180 tab 05/04/19 Rx Allergies Allergy/AdvReac Type Severity Reaction Status Date / Time aspirin [ASPIRIN] AdvReac Mild NAUSEA Verified 04/07/19 08:14 Review of Systems Review of Systems ROS: Yes All systems reviewed with the patient and are negative except as otherwise documented Exam Vital Signs (past 8 hours): - 05/06/19 03:53 05/06/19 04:16 05/06/19 04:30 Temperature 100.4 F H 100.5 F H Pulse Rate 120 H 104 H Respiratory Rate 24 26 H Blood Pressure 124/69 Blood Pressure [Left Arm] 113/57 L Pulse Oximetry 93 92 05/06/19 05:01 05/06/19 05:10 05/06/19 06:30 Temperature 98.8 F 98.8 F Pulse Rate 86 Respiratory Rate 21 Blood Pressure Blood Pressure [Left Arm] 114/59 L Pulse Oximetry 97 05/06/19 06:58 Temperature Pulse Rate 83 Respiratory Rate 30 H Blood Pressure Blood Pressure [Left Arm] 102/56 L Pulse Oximetry 95 Oxygen Delivery Method Room Air Oxygen Flow Rate 2 Narrative Exam Narrative: GENERAL: Thin male who is pleasantly interacting and in no acute distress HEAD: Atraumatic. Normocephalic. EYES: Pupils equal, round and reactive. Extraocular motions intact. No scleral icterus. OROPHARYNX: moist mucosa NECK: Trachea midline. No JVD or lymphadenopathy. CARDIOVASCULAR: Normal S1 and S2, regular rate and rhythm without murmurs, gallops, or rubs. RESPIRATORY: Breathing is nonlabored, faint bilateral inspiratory and expiratory rhonchi, no crackles. GASTROINTESTINAL: Abdomen nondistended, soft, non-tender. No hepato-splenomegaly, or palpable masses. EXTREMITIES: No edema. NEUROLOGICAL: Alert, well oriented, speech is intact, normal bilateral upper and lower extremity strength SKIN: warm, dry, no rash Objective Labs Result Diagrams: 05/06/19 04:05 05/06/19 04:05 Labs: Laboratory Results - last 24 hr 05/06/19 05/06/1905/06/20 04:05 04:05 04:05 WBC 14.6 H RBC 4.33 L Hgb 11.7 L Hct 34.8 L MCV 80.3 MCH 26.9 MCHC 33.5 RDW 15.0 H Plt Count 510 H Neut % (Auto) 76.0 H Lymph % (Auto) 9.4 L [place] % (Auto) 8.4 Eos % (Auto) 2.7 Baso % (Auto) 3.5 H Neut # (Auto) 29667 H Lymph # (Auto) 1400 [place] # (Auto) 1200 H Eos # (Auto) 400 Baso # (Auto) 500 H PT 14.4 H INR 1.2 APTT 34 D ABG pH ABG pCO2 ABG pO2 ABG HCO3 ABG Total CO2 ABG O2 Saturation ABG Base Excess FiO2 Sodium Potassium Chloride Carbon Dioxide BUN Creatinine Estimated GFR BUN/Creatinine Ratio Glucose Lactate Calcium Total Bilirubin AST ALT Alkaline Phosphatase Total Protein Albumin Globulin Albumin/Globulin Ratio Procalcitonin 0.10 Urine Color Urine Appearance Urine pH Ur Specific [place] Urine Protein Urine Glucose (UA) Urine Ketones Urine Occult Blood Urine Nitrate Urine Bilirubin Urine Urobilinogen Ur Leukocyte Esterase Urine RBC Urine WBC Urine Bacteria Ur Culture Indicated? Micro UA Comment Influenza A (RT-PCR) Influenza B (RT-PCR) 05/06/19 05/06/19 05/06/19 04:05 04:05 04:10 WBC RBC Hgb Hct MCV MCH MCHC RDW Plt Count Neut % (Auto) Lymph % (Auto) [place] % (Auto) Eos % (Auto) Baso % (Auto) Neut # (Auto) Lymph # (Auto) [place] # (Auto) Eos # (Auto) Baso # (Auto) PT INR APTT ABG pH ABG pCO2 ABG pO2 ABG HCO3 ABG Total CO2 ABG O2 Saturation ABG Base Excess FiO2 Sodium 133 L Potassium 4.6 Chloride 97 L Carbon Dioxide 26 BUN 17 Creatinine 1.10 Estimated GFR > 60.0 BUN/Creatinine Ratio 15.5 Glucose 134 H Lactate 1.8 Calcium 9.5 Total Bilirubin 0.4 AST 24 ALT 14 Alkaline Phosphatase 114 Total Protein 7.9 Albumin 3.9 Globulin 4.0 Albumin/Globulin Ratio 1.0 Procalcitonin Urine Color Urine Appearance Urine pH Ur Specific [place] Urine Protein Urine Glucose (UA) Urine Ketones Urine Occult Blood Urine Nitrate Urine Bilirubin Urine Urobilinogen Ur Leukocyte Esterase Urine RBC Urine WBC Urine Bacteria Ur Culture Indicated? Micro UA Comment Influenza A (RT-PCR) Flu a negative Influenza B (RT-PCR) Flu b negative 05/06/19 05/06/19 06:04 06:20 WBC RBC Hgb Hct MCV MCH MCHC RDW Plt Count Neut % (Auto) Lymph % (Auto) [place] % (Auto) Eos % (Auto) Baso % (Auto) Neut # (Auto) Lymph # (Auto) [place] # (Auto) Eos # (Auto) Baso # (Auto) PT INR APTT ABG pH 7.38 ABG pCO2 42.4 ABG pO2 54 L ABG HCO3 25 ABG Total CO2 26 ABG O2 Saturation 87 L ABG Base Excess 0.0 FiO2 21 Sodium Potassium Chloride Carbon Dioxide BUN Creatinine Estimated GFR BUN/Creatinine Ratio Glucose Lactate Calcium Total Bilirubin AST ALT Alkaline Phosphatase Total Protein Albumin Globulin Albumin/Globulin Ratio Procalcitonin Urine Color Yellow Urine Appearance Clear Urine pH 5.0 Ur Specific [place] <=1.005 Urine Protein Negative Urine Glucose (UA) Negative Urine Ketones Negative Urine Occult Blood Negative Urine Nitrate Negative Urine Bilirubin Negative Urine Urobilinogen 0.2 Ur Leukocyte Esterase Negative Urine RBC None seen Urine WBC None seen Urine Bacteria None seen Ur Culture Indicated? Cult not indicated Micro UA Comment Microscopic normal Influenza A (RT-PCR) Influenza B (RT-PCR) Assessment & Plan Assessment & Plan narrative: This is a 64-year-old male with history of metastatic lung adenocarcinoma, history of chronic right upper lobe cavitary lesion, history of right axillary vein chronic DVT, taken off Xarelto due to hemoptysis, who now presents with low-grade fever for several days and a fever spike soon after having received flu and pneumonia vaccinations. 1. Fever -patient with reported 103 fever at home, low-grade temp in ER. He has mildly elevated WBC 14.6, procalcitonin 0.1, and normal lactic acid. No new findings on chest x-ray or CTA. Urinalysis not indicative of UTI. He is not having new or worsening respiratory symptoms and does not appear super sick or septic. He was initially mildly tachycardic but heart rate quickly came down. -the temperature spike is temporally related and may quite likely be due to flu and pneumonia vaccinations -he has had low-grade fever since he was taken off of Augmentin about 10 days ago, as noted he has been on antibiotic suppression with Augmentin due to concern of right upper lung abscess at direction of Infectious Disease specialist -blood cultures obtained in ED -started Zosyn in the ED, continue Zosyn 3.375 g IV q.6 hours -once patient afebrile likely can transition him back to oral suppressive therapy with Augmentin -his ID doctor is Dr. Peggy Baron 2. Right upper lobe cavitary lesion -this is unchanged in appearance on current CT, negative cultures on bronchoscopy -bronchoscopy about 10 days ago at [facility] -has been on suppressive Augmentin therapy until discontinued after [place] admission -patient is not having hemoptysis since taken off of Xarelto 3. Chronic right axillary DVT -no new arm swelling or pain -not anticoagulated due to hemoptysis 4. 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 5. Transient hypoxia -ABG: PO2 54, O2 sat 87% room air, although initial O2 sat was 92% on room air, and current O2 sat 94% room air on hospital floor, therefore hypoxia seems rather transient and patient not presenting as in severe respiratory failure -monitor O2 sats, patient currently on room air Code status: Full code, however patient does not want prolonged CPR, states to ?give it 1 try ?, and he does not want to be kept on life support. DVT prophylaxis SCDs. Lovenox contraindicated due to recent history of hemoptysis.
[2019-05-06] MEDS: SUCRALFATE 1 GM/10 ML ORAL SUSP PO ×4 (10:43→20:54)
[2019-05-06] MEDS: SERTRALINE 50 MG TABLET 75 MG PO (10:43)
[2019-05-06] MEDS: PREGABALIN 50 MG CAPSULE PO ×3 (10:43→20:54)
[2019-05-06] MEDS: OXYCODONE IR 10 MG TABLET PO ×3 (10:56→19:14)
[2019-05-06] MEDS: PIPERACILLIN-TAZO 3.375 GM/50 ML FROZ.PIGGY IV ×2 (13:10→19:14)
--- NOTE | 2019-05-06 15:02 | PC.NURSE ---
assumed care of patient at 10am this morning, patient resting in bed comfortably. He denies shortness of breath, reports chronic pain to right chest into right upper back is managed with oxycodone as ordered, states he has a cough chronically but not having any sputum or mucus production today. Urinal is within reach and patient using independently. Patient pleasant, and answering questions appropriately, call light within reach, bed alarm active for safety. Patient has his cane here at bedside as well.
[2019-05-06] MEDS: ALBUTEROL/IPRATROPIUM 3 ML AMPUL INH (18:13)
[2019-05-06] MEDS: ACETAMINOPHEN 325 MG TABLET 650 MG PO (19:14)
[2019-05-06] MEDS: SODIUM CHLORIDE 0.9% FLUSH 10 ML IV (20:13)
[2019-05-07] VITALS: BP 103/50; PULSE 67; RESP 18; TEMP 37; O2SAT 93
[2019-05-07 00:25] VITALS: O2SAT 93
[2019-05-07] MEDS: PIPERACILLIN-TAZO 3.375 GM/50 ML FROZ.PIGGY IV ×2 (01:01→06:22)
[2019-05-07] MEDS: OXYCODONE IR 10 MG TABLET PO ×2 (02:43→07:21)
[2019-05-07 04:00] VITALS: BP 119/64; PULSE 73; RESP 20; TEMP 37; O2SAT 92
--- NOTE | 2019-05-07 04:25 | PC.NURSE ---
Noc Note: Pt has occ SOB with exertion, O2 in use intermittently. PRN Oxycodone given of pain in right axillary area. Pt states that he is feeling better overall. Pt had been afebrile this shift.
[2019-05-07 04:27] VITALS: O2SAT 99
[2019-05-07 05:24] LABS: Add Manual Diff / Slide Review NO; Basophils Absolute Auto 200 /uL (0-100); Basophils Percent Auto 1.8 % (0-2); Eosinophils Absolute Auto 800 /uL (0-450); Eosinophils Percent Auto 7.7 % (2-4); Hematocrit 32.3 % (41-53); Hemoglobin 10.7 g/dL (13.5-17.5); Lymphocytes Absolute Auto 1500 /uL (1100-4500); Lymphocytes Percent Auto 14.9 % (25-40); Mean Corpuscular HGB Conc 33.2 % (30-36); Mean Corpuscular Hemoglobin 27.1 PG (26-34); Mean Corpuscular Volume 81.5 fL (80-100); Monocytes Absolute Auto 1200 /uL (0-900); Monocytes Percent Auto 11.5 % (3-14); Neutrophils Absolute Auto 6700 /uL (1500-7000); Neutrophils Percent Auto 64.1 % (50-75); Platelet Count 405 X10^3/uL (150-400); Red Blood Cell Count 3.96 X10^6/uL (4.5-5.9); Red Cell Distribution Width 15.2 % (11.6-14.8); White Blood Cell Count 10.4 X10^3/uL (4.5-11.0)
[2019-05-07 05:33] LABS: BUN Creatinine Ratio 11.8 (6-22); Blood Urea Nitrogen 13 mg/dL (9-20); Calcium 9.1 mg/dL (8.4-10.2); Carbon Dioxide 31 mmol/L (22-32); Chloride 102 mmol/L (98-107); Estimated Glomerular Filt Rate > 60.0 mL/min (>60); Glucose 90 mg/dL (80-110); HEMOLYSIS < 15 (0-50); Potassium 4.8 mmol/L (3.4-5.1); Sodium 137 mmol/L (137-145)
[2019-05-07 05:47] LABS: Procalcitonin 0.05 ng/mL (<0.5)
[2019-05-07 06:00] VITALS: O2SAT 92
[2019-05-07] MEDS: LEVOTHYROXINE 150 MCG TABLET PO (06:22)
[2019-05-07] MEDS: ACETAMINOPHEN 325 MG TABLET 650 MG PO (06:24)
[2019-05-07 07:12] VITALS: BP 105/57; PULSE 70; RESP 20; TEMP 37.7; O2SAT 96
[2019-05-07] MEDS: SERTRALINE 50 MG TABLET 75 MG PO (07:21)
[2019-05-07] MEDS: PREGABALIN 50 MG CAPSULE PO (07:21)
[2019-05-07] MEDS: SUCRALFATE 1 GM/10 ML ORAL SUSP PO (07:21)
[2019-05-07] MEDS: SODIUM CHLORIDE 0.9% FLUSH 10 ML IV (07:22)
--- NOTE | 2019-05-07 10:04 | P.DS_ITS ---
History of Present Illness History of Present Illness Date Patient Seen: 05/06/19 Chief complaint: 103.5 temp after flu/pneumonia shots Narrative: Dr. Suárez, Patient is a 64-year-old male with history of poorly differentiated metastatic adenocarcinoma, status post nivolumab 11/06/2015-02/23/2018, history of chronic right upper lobe cavitary lesion, presented to emergency department due to fever. Patient reports low-grade fever for the past few days up to 100.3. Yesterday afternoon he had a flu shot and Pneumovax. Subsequently he spiked a temp of 103? at home. He has had some malaise but otherwise has felt close to baseline with chronic chest pain and a chronic cough. He was diagnosed with a right axillary vein chronic DVT on 04/07/2019 when he presented to the ER with right arm pain. He was started on Xarelto but then developed hemoptysis which resulted in ER visit on 04/25/2019. He was transferred to [facility] where they kept him for 2 days and performed bronchoscopy. Records not available but patient states they were concerned a fistula was developing from his bronchial to the right upper lobe cavitary lesion. Patient was taken off of Xarelto. Patient states they also recommended he stop his Augmentin. Patient has been on suppressive therapy with Augmentin at direction of Dr. Joseph Baron infectious disease specialist at [facility]. In January 2018 he developed a cavitary right upper lobe lesion. He had bronchoscopy with negative BAL cultures and PCR. He was started empirically on Augmentin around that time and had remained on Augmentin up until his recent admission to [facility]. Patient unclear why he was told to stop Augmentin. He denies any current hemoptysis, discolored sputum, worsening cough, abdominal pain, vomiting, diarrhea, urinary discomfort or frequency. He does take oxycodone as needed for bone metastases. On ER workup his WBC was 14.6 with 76% neutrophils, procalcitonin 0.10, lactate 1.8, urinalysis normal, initial BP 124/69, respirations 24, pulse 120, temp 100.4?. Subsequent heart rate quickly came down. O2 sat noted 93% on room air. However on blood gas PO2 54, pCO2 42.4, pH 7.38, O2 sat 87% on room air. Chest x-ray showed chronic right upper lobe cavitary lesion, no focal infiltrate, no new findings. Chest CTA no pulmonary embolism, multiple chronic findings with thick-walled right upper lobe cavitary lesion with mediastinal adenopathy, no new lung consolidation or pneumonia. Discharge Providers Provider Date of admission: 05/06/19 06:44 Discharge Date: 05/07/19 Consults: 05/06/19 11:08 Consult to Dietitian, Adult Routine Comment: Reason For Exam: mini nutrional assessment score on admission Discharge provider: Brandi Wood DO Summary Hospital Course Discharge Diagnosis: 1. Acute fever, present on admission. Resolved. 2. Right upper lobe cavitary lesion, chronic, present on admission. Presumed stable. 3. Chronic right axillary DVT, present on admission. Presumed stable. 4. Metastatic pulmonary adenocarcinoma, chronic, present on admission. Stable. 5. Transient hypoxemia, present on admission. Resolved. Hospital Course: Yash Davila is a 64-year-old male with a past medical history significant for metastatic lung adenocarcinoma, chronic right upper lobe cavitary lesion, history of right axillary vein chronic DVT, taken off Xarelto due to hemoptysis, who presented to ED with low-grade fever for several days and a fever spike soon after having received flu and pneumonia vaccinations. 1. Acute fever, present on admission. Resolved. -Patient with reported 103? F fever at home. Patient with T-max 101.3? F during hospitalization. He has mildly elevated WBC 14.6, procalcitonin 0.1, and normal lactic acid. No new findings on chest x-ray or CTA. Urinalysis not indicative of UTI. He was not having new or worsening respiratory symptoms and does not appear severely ill or septic. He was initially mildly tachycardic but heart rate quickly came down. -Temperature spike is temporally related and may quite likely be due to flu and pneumonia vaccinations versus discontinuation of suppressive Augmentin as below. -Blood cultures x2 have no growth to date. -Continued Zosyn 3.375 g every 6 hours for broad-spectrum antibiotic coverage until patient defervesced. Discharge on suppressive Augmentin 875-125 mg once daily. 2. Right upper lobe cavitary lesion, chronic, present on admission. Presumed stable. -Patient is followed by Dr. Baron of infectious disease and recommended the patient follow-up closely with her upon discharge. -Patient has been on suppressive antibiotic therapy with Augmentin due to concern of right upper lung abscess at direction of Infectious Disease. Patient has had low-grade fever since he was taken off of Augmentin about 10 days ago at time of discharge from [facility].. -Right cavitary lesion is unchanged in appearance on current CT. Negative cultures on recent bronchoscopy at [place]. -Continued Zosyn 3.375 g every 6 hours for broad-spectrum antibiotic coverage until patient defervesced. Discharge on suppressive Augmentin 875-125 mg once daily. 3. Chronic right axillary DVT, present on admission. Presumed stable. -No new arm swelling or pain. -Not anticoagulated due to recent hemoptysis and has had no recurrence since being taken off of Xarelto. 4. Metastatic pulmonary adenocarcinoma, chronic, present on admission. Stable. -Patient is followed by Dr. Young of oncology. 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 Continued patient's oxycodone 10 mg every 4 hours as needed for pain and Lyrica 50 mg 3 times daily. 5. Transient hypoxemia, present on admission. Resolved. -ABG: PO2 54, O2 sat 87% room air, although initial O2 sat was 92% on room air, and current O2 sat 94% room air on hospital floor, therefore hypoxemia seems rather transient and patient not presenting as in severe respiratory failure. -Continued supplemental oxygen as necessary to maintain oxygen saturations 88- 92%. Patient currently on room air. Exam Vital Signs (past 8 hours): - 05/07/19 04:00 05/07/19 04:27 05/07/19 06:00 Temperature 98.6 F Pulse Rate 73 Respiratory Rate 20 Blood Pressure 119/64 Pulse Oximetry 92 99 92 05/07/19 07:12 Temperature 99.8 F H Pulse Rate 70 Respiratory Rate 20 Blood Pressure 105/57 L Pulse Oximetry 96 Oxygen Delivery Method Room Air Oxygen Flow Rate 0 Narrative Exam Narrative: General: Older gentleman lying in bed and in no acute distress, appears older than stated age, well-developed, well-nourished, appropriately interactive. HEENT: Normocephalic, atraumatic. External ears without defect. Pupils equal, round, and reactive to light. Anicteric sclerae, moist conjunctivae, and no lid lag. Oropharynx free of erythema and cobble stoning with moist mucosa. Neck: Supple with full range of motion. No jugular venous distension. No lymphadenopathy or thyromegaly. Cardiovascular: Regular rate and rhythm without murmurs, rubs, or gallops appreciated Pulmonary: Clear to auscultation bilaterally with occasional scattered wheeze. No crackles or rhonchi. Normal respiratory effort with no use of accessory muscles. Abdomen: Soft, bowel sounds present, nontender, nondistended. No hepatosplenomegaly or masses appreciated. Extremities: No clubbing, cyanosis, or edema. Skin: Normal temperature, turgor, and texture; no rash, ulcers, or subcutaneous nodules appreciated. Neurological: Cranial nerves grossly intact. Psychiatric: Depressed mood and flat affect. Alert and oriented to person, place, and time. Objective Labs Result Diagrams: 05/07/19 04:40 05/07/19 04:40 Labs: Laboratory Results - last 24 hr 05/06/19 05/07/19 05/07/19 06:02 04:40 04:40 WBC 10.4 RBC 3.96 L Hgb 10.7 L Hct 32.3 L MCV 81.5 MCH 27.1 MCHC 33.2 RDW 15.2 H Plt Count 405 H Neut % (Auto) 64.1 Lymph % (Auto) 14.9 L [place] % (Auto) 11.5 Eos % (Auto) 7.7 H Baso % (Auto) 1.8 Neut # (Auto) 6700 Lymph # (Auto) 1500 [place] # (Auto) 1200 H Eos # (Auto) 800 H Baso # (Auto) 200 H ABG pH 7.38 ABG pCO2 42.4 ABG pO2 54 L ABG HCO3 25 ABG Total CO2 26 ABG O2 Saturation 87 L ABG Base Excess 0.0 FiO2 21 Sodium Potassium Chloride Carbon Dioxide BUN Creatinine Estimated GFR BUN/Creatinine Ratio Glucose Calcium Procalcitonin 0.05 05/07/19 04:40 WBC RBC Hgb Hct MCV MCH MCHC RDW Plt Count Neut % (Auto) Lymph % (Auto) [place] % (Auto) Eos % (Auto) Baso % (Auto) Neut # (Auto) Lymph # (Auto) [place] # (Auto) Eos # (Auto) Baso # (Auto) ABG pH ABG pCO2 ABG pO2 ABG HCO3 ABG Total CO2 ABG O2 Saturation ABG Base Excess FiO2 Sodium 137 Potassium 4.8 Chloride 102 Carbon Dioxide 31 BUN 13 Creatinine 1.10 Estimated GFR > 60.0 BUN/Creatinine Ratio 11.8 Glucose 90 Calcium 9.1 Procalcitonin Discharge Plan Discharge Plan Patient Disposition: Home Discharge comment: You're being discharged home. You likely had fevers due to your chronic right upper lung cavitary lesion and instructions to stop your Augmentin. Please restart your Augmentin. Please follow-up with your infectious disease doctor, Dr. Baron, as soon as available to discuss your hospitalizations. Discharge orders & Medications Prescriptions: Continued sertraline [Zoloft] 50 mg Tablet 75 mg PO DAILY RF: 0 levothyroxine 150 mcg Tablet 150 mcg PO DAILY Qty: 90 RF: 0 pregabalin [Lyrica] 50 mg Capsule 50 mg PO TID Qty: 90 RF: 1 tramadol 50 mg Tablet 50 mg PO BID PRN (Reason: pain) Qty: 60 RF: 0 oxycodone 10 mg Tablet 10 mg PO Q4H PRN (Reason: pain) Qty: 180 RF: 0 albuterol sulfate [ProAir HFA] 90 MCG/PUFF HFA aerosol inhaler 1 puff INH Q6H RF: 0 ipratropium-albuterol 0.5 mg-3 mg(2.5 mg base)/3 mL Solution For Nebulization 3 ml INH Q4HR PRN (Reason: sob/wheezing) Qty: 40 RF: 0 esomeprazole magnesium 20 MG capsule,delayed release(DR/EC) 20 mg PO DAILY Qty: 90 RF: 1 lidocaine 4 % adhesive patch,medicated 1 patch TOP Q24H PRN (Reason: pain) Qty: 1 RF: 0 amoxicillin-pot clavulanate [Augmentin] 875-125 mg Tablet 1 tab PO DAILY RF: 0 Follow up/Referrals: Peggy Baron MD [Non-Staff] - 1 Week Thomas Young MD [Physician] - As previously scheduled Diet/Activity/Treatments Diet: Diet as Tolerated, Low-fat, Low-sodium and Low-cholesterol Activity: Activity as tolerated with cane Visit Report/Discharge Packet Instructions: DI for Prescription Opioid Use Discharge Data Attending Provider: Yash Barbosa Admit Date/Time: 05/06/19 06:44 Discharges patient from system. Discharge Date/Time: 05/07/19 11:40
== END 2019-05-07 11:40 | disposition home or self-care (01) ==
LOC: ED 06:43 → AC 13:59
PROVIDERS: Internal Medicine; Admitting Provider Nurse Practitioner Adult Health; Emergency Provider Emergency Medicine; Referring Provider Emergency Medicine; Visit Provider Nurse Practitioner Adult Health
DX: R50.9 Fever, unspecified (principal); C34.90 Malignant neoplasm of unspecified part of unspecified bronchus or lung; C79.51 Secondary malignant neoplasm of bone; I82.A21 Chronic embolism and thrombosis of right axillary vein; R09.02 Hypoxemia; F17.210 Nicotine dependence, cigarettes, uncomplicated
CPT/HCPCS: 36415; 36600; 71045; 71275; 80048; 80053; 81001; 82805; 83605; 84145; 85025; 85610; 85730; 87040; 87086; 87502; 94640; 94760; 96361; 96365; 96366; 99285; G0378; J2543; Q9967

== ENCOUNTER 2019-06-08 17:33 | Inpatient (IN) | payer OTHER, MEDICAID, SELFPAY ==
[2019-05-06 10:58] VITALS: BMI 19.1
[2019-06-08] VITALS (10 sets, daily range): BP systolic 93–151; BP diastolic 51–70; PULSE 81–101; RESP 20–24; TEMP 36.6–38.1; O2SAT 89–100; BMI 18.6
--- NOTE | 2019-06-08 17:52 | DI.RAD.S_ITS ---
PROCEDURE: XR CHEST 1V INDICATIONS: suspected sepsis TECHNIQUE: One view of the chest was acquired. COMPARISON: [facility], CR, XR CHEST 1V, 05/06/2019, 4:23. FINDINGS: Surgical changes and devices: Left subclavian Mediport. Lungs and pleura: Chronic, thick walled cavitation involving the right upper lung field. The lungs are otherwise normally aerated. Chronically coarse interstitial markings and left apical pleural plaquing. No pleural effusions or pneumothorax. Mediastinum: Mediastinal contours appear normal. Heart size is normal. Bones and chest wall: No suspicious bony lesions. Overlying soft tissues appear unremarkable. IMPRESSION: 1. No significant changes. 2. Chronic right upper lobe cavitary lesion without significant change. 3. Left Mediport in stable position. Dictated by: Jyothi Roy M.D. on 06/08/2019 at 18:36 Approved by: Jyothi Roy M.D. on 06/08/2019 at 18:38
[2019-06-08 18:14] LABS: Add Manual Diff / Slide Review NO; Basophils Absolute Auto 100 /uL (0-100); Basophils Percent Auto 0.8 % (0-2); Eosinophils Absolute Auto 400 /uL (0-450); Eosinophils Percent Auto 3.1 % (2-4); Hematocrit 32.7 % (41-53); Hemoglobin 10.7 g/dL (13.5-17.5); Lymphocytes Absolute Auto 1700 /uL (1100-4500); Lymphocytes Percent Auto 12.9 % (25-40); Mean Corpuscular HGB Conc 32.9 % (30-36); Mean Corpuscular Hemoglobin 26.1 PG (26-34); Mean Corpuscular Volume 79.2 fL (80-100); Monocytes Absolute Auto 1400 /uL (0-900); Monocytes Percent Auto 10.2 % (3-14); Neutrophils Absolute Auto 9800 /uL (1500-7000); Platelet Count 419 X10^3/uL (150-400); Red Blood Cell Count 4.12 X10^6/uL (4.5-5.9); White Blood Cell Count 13.5 X10^3/uL (4.5-11.0)
[2019-06-08 18:16] LABS: INR 1.3 (0.9-1.3); Prothrombin Time 14.9 SECONDS (10.1-12.7)
[2019-06-08 18:18] LABS: PTT Partial Thromboplastin Tim 32 SECONDS (26.4-36.2)
--- NOTE | 2019-06-08 18:19 | ED_ITS ---
HPI - Sepsis General Chief Complaint: Shortness of Breath/Dyspnea Mode of arrival: Ambulatory Source: patient and family Limitations: no limitations Evaluation Sepsis Screen: Possible Sepsis Risk Sepsis Infection Criteria Present: Suspected New Infection Associated Symptoms: fever, chills, cough, shortness of breath, loss of appetite and nausea Narrative: 64-year-old male smoker with history of lung cancer and hypothyroid presents with a chief complaint of a few days of fever, chills, weakness, cough and shortness of breath. Additionally has some pain radiating across his entire upper back. He denies any injury, recent travel or exposure to persons with similar symptoms. He lives at home with his ex- and a caregiver. His last hospitalization was quite sometime ago. He regrets to inform me that he does continue to smoke. He denies any vomiting or diarrhea but is nauseated. Review of Systems Constitutional Constitutional: Reports chills, Reports fatigue, Reports fever(s), Denies frequent falls, Denies lethargy and Reports weakness Eyes Eyes: Denies change in vision, Denies eye discharge, Denies irritation and Denies loss of vision ENT Ears, Nose, Mouth, and Throat: Denies change in voice, Denies dizziness, Denies neck pain, Denies sore throat and Denies throat swelling Cardiovascular Cardiovascular: Denies chest pain, Denies irregular heart rhythm, Denies lightheadedness, Denies palpitations, Reports dyspnea, Reports dyspnea on exertion and Denies orthopnea Respiratory Respiratory: Reports cough, Reports excessive phlegm production, Reports dyspnea, Reports dyspnea on exertion and Denies wheezing Gastrointestinal Gastrointestinal: Denies abdominal pain, Denies change in bowel habits, Denies diarrhea, Denies nausea and Denies vomiting Genitourinary Genitourinary: Denies hematuria, Denies flank pain, Denies urinary incontinence and Denies urinary urgency Musculoskeletal Musculoskeletal: Denies back pain, Denies muscle weakness, Denies neck pain, Denies numbness and Denies tingling Integumentary/Breasts Skin/Breast: Denies pruritus, Denies erythema, Denies rash and Denies wounds Neurologic Neurologic: Denies behavioral changes, Denies confusion, Denies dizziness, Denies frequent falls, Denies loss of vision, Denies numbness, Denies tingling and Reports weakness Psychiatric Psychiatric: Denies anxiety, Denies behavioral changes, Denies confusion, Denies depression, Denies homicidal ideation and Denies suicidal ideation Endocrine Endocrine: Reports fatigue, Denies flushing and Denies palpitations Hematologic/Lymphatic Hematologic/Lymphatic: Denies easy bruising Allergic/Immunologic Allergic/Immunologic: Denies urticaria, Denies throat swelling and Denies wheezing Patient History Medical History COPD (chronic obstructive pulmonary disease) (Chronic) Depression (Acute) DVT of upper extremity (deep vein thrombosis) (Acute) GERD (gastroesophageal reflux disease) (Acute) Hypothyroid (Chronic) Lung cancer, primary, with metastasis from lung to other site (Chronic) PEG (percutaneous endoscopic gastrostomy) adjustment/replacement/removal (Acute) Peripheral neuropathy (Acute) Surgical History History of lung biopsy (Acute) Family History Mother Congestive heart failure Father Unknown family medical history Social History household members: caregiver and other Smoking Status: Current every day smoker alcohol intake: former Smoking Status: Current every day smoker alcohol intake frequency: 0-2 drinks per day Substance Use Type: does not use Exam Narrative Exam Narrative: GENERAL: [64] year old patient appears stated age. Increased work of breathing with use of accessory is, tachypnea. Chronically ill HEAD: Atraumatic. Normocephalic. EYES: Pupils equal round and reactive. Extraocular motions intact. No scleral icterus. No injection or drainage. ENT: Nose without bleeding, purulent drainage. Throat without erythema, tonsillar hypertrophy or exudate. Airway patent. NECK: Trachea midline. Non tender CARDIOVASCULAR: tachycardia but regular rhythm without murmurs, gallops, or rubs. RESPIRATORY: Decreased breath sounds throughout with prolonged expiratory phase GASTROINTESTINAL: Abdomen soft, non-tender, nondistended. EXTREMITIES: No edema or joint tenderness. BACK: Nontender without deformity or crepitance. No flank tenderness. NEURO: AOx3. SKIN: No rash or erythema of visible areas Initial Vital Signs Initial Vital Signs: Vital Signs Temperature 100.5 F H 06/08/19 17:48 Pulse Rate 101 H 06/08/19 17:48 Respiratory Rate 24 06/08/19 17:48 Blood Pressure 151/69 H 06/08/19 17:48 Pulse Oximetry 95 06/08/19 17:48 Course Course Course Narrative: patient meets CDCs third set of criteria for testing for possible COVID-19 due to fever and severe lower respiratory infection in the absence of an obvious cause such as flu. For this reason I called Dr. Keenan whom agreed and suggested I call the [facility] Department. Af ter discussing with [facility] they agree, ask that we obtain nasopharyngeal and oropharyngeal samples, maintain droplet precautions. They were unable to coordinate testing after hours and have taken down contact information for the patient and Hospital. They state that they will resume operations at 8:00 a.m. and that we can expect a call from their software sales representative in the morning Orders Ordered: ED Orders 06/08/19 17:52 XR chest 1V Stat RT Consult Eval and Treat Now 06/08/19 17:58 Complete Blood Count AUTO DIFF Stat Comprehensive Metabolic Panel Stat D Dimer Stat Lactate (Lactic Acid) Stat Lipase Stat Partial Thromboplastin Time Stat Procalcitonin Stat Prothrombin Time INR Stat 06/08/19 18:08 Blood Culture Stat 06/08/19 18:52 Arterial Blood Gas Stat 06/08/19 19:02 Influenza A & B (PCR) Stat Respiratory Panel (Film Array) Stat Acetaminophen (Tylenol) 975 mg PO Q8H PRN PRN Reason: Fever/Mild Pain (1-3) Al Hydrox/Mg Hydrox/Simethicone (Maalox Plus) 30 ml PO Q6HR PRN PRN Reason: Dyspepsia Albuterol (Ventolin) 2.5 mg INH [id number] PRN PRN Reason: Shortness Of Breath Albuterol/Ipratropium (Duoneb) 3 ml INH RTQ6HR PRN PRN Reason: Shortness Of Breath Last Admin: 06/09/19 00:41 Dose: 3 ml Documented by: JENNIFER Bisacodyl (Dulcolax) 10 mg [place] DAILY PRN PRN Reason: Constipation Calcium Carbonate (Tums) 1,000 mg PO Q4HR PRN PRN Reason: Dyspepsia Docusate Sodium (Colace) 100 mg PO BID PRN PRN Reason: Constipation Enoxaparin Sodium (Lovenox) 60 mg 1 mg/kg (60 mg) SUBCUT BID [facility] Last Admin: 06/09/19 00:35 Dose: 60 mg Documented by: CHELE Sodium Chloride (Normal Saline 0.9%) 1,000 mls @ 100 mls/hr IV CONT RENO Last Admin: 06/08/19 22:48 Dose: 75 mls/hr Documented by: KEVON Azithromycin 500 mg/ Dextrose 250 mls @ 250 mls/hr IV Q24H RENO Stop: 06/10/19 20:01 Ceftriaxone Sodium/Dextrose (Rocephin) 2 gm in 50 mls @ 100 mls/hr IV Q24H [facility] Levothyroxine Sodium (Synthroid) 150 mcg PO DAILY [facility] Lidocaine (Lidoderm) 1 each TOP DAILY PRN PRN Reason: Pain, Moderate (4-6) Naloxone HCl (Narcan) 0.2 mg IV Q2MIN PRN PRN Reason: Opiate Reversal Ondansetron HCl (Zofran) 4 mg IV Q8HR PRN PRN Reason: Nausea And Vomiting Oxycodone HCl (Percolone) 10 mg PO Q4HR [facility] Last Admin: 06/09/19 00:35 Dose: 10 mg Documented by: Admin: 06/08/19 22:56 Dose: 10 mg Documented by: KEVON Pantoprazole Sodium (Protonix) 20 mg PO 0600 [facility] Pregabalin (Lyrica) 50 mg PO TID [facility] Last Admin: 06/09/19 00:35 Dose: 50 mg Documented by: CHELE Sertraline HCl (Zoloft) 75 mg PO DAILY [facility] Discontinued Medications Sodium Chloride (Normal Saline 0.9%) 1,000 mls @ 1,000 mls/hr IV BOLUS ONE Stop: 06/08/19 18:51 Last Admin: 06/08/19 22:48 Dose: Not Given Documented by: KEVON Sodium Chloride (Normal Saline 0.9%) 1,864.26 mls @ 621.42 mls/hr 30 ml/kg infuse over 3 hr (1864.26 ml) IV NOW ONE Stop: 06/08/19 21:20 Last Infusion: 06/08/19 22:40 Dose: 0 mls/hr Documented by: Admin: 06/08/19 18:41 Dose: 621.42 mls/hr Documented by: LEONARDO Ceftriaxone Sodium/Dextrose (Rocephin) 1 gm in 50 mls @ 100 mls/hr IV NOW ONE Stop: 06/08/19 19:06 Last Infusion: 06/08/19 19:45 Dose: 0 mls/hr Documented by: Admin: 06/08/19 18:40 Dose: 100 mls/hr Documented by: LEONARDO Azithromycin 500 mg/ Dextrose 250 mls @ 250 mls/hr IV NOW ONE Stop: 06/08/19 18:38 Last Infusion: 06/08/19 21:45 Dose: 0 mls/hr Documented by: Admin: 06/08/19 19:56 Dose: 250 mls/hr Documented by: LEONARDO Ceftriaxone Sodium/Dextrose (Rocephin) 1 gm in 50 mls @ 100 mls/hr IV NOW ONE Stop: 06/08/19 21:10 Last Admin: 06/08/19 22:49 Dose: Not Given Documented by: KEVON Magnesium Sulfate (Magnesium Sulfate) 2 gm in 50 mls @ 25 mls/hr IV NOW ONE Stop: 06/08/19 23:17 Last Admin: 06/08/19 22:56 Dose: 25 mls/hr Documented by: KEVON Cosigned by: CHELE Ketorolac Tromethamine (Toradol) 15 mg IV NOW ONE Stop: 06/08/19 19:46 Last Admin: 06/08/19 19:56 Dose: 15 mg Documented by: LEONARDO Vital Signs Vital signs: Vital Signs - 8 hr 06/08/19 19:00 06/08/19 19:05 06/08/19 19:30 Pulse Rate 97 H 97 H Respiratory Rate 22 22 Blood Pressure [Left Arm] 125/68 124/64 Pulse Oximetry 89 L 96 98 06/08/19 20:00 Pulse Rate 94 H Respiratory Rate 21 Blood Pressure [Left Arm] 100/51 L Pulse Oximetry 97 MDM - Sepsis Lab Data Result diagrams: 06/08/19 17:58 06/08/19 17:58 Labs: Lab Results 06/08/19 06/08/19 06/08/19 Range/Units 17:58 17:58 17:58 WBC 13.5 H (4.5-11.0) X10^3/uL RBC 4.12 L (4.5-5.9) X10^6/uL Hgb 10.7 L (13.5-17.5) g/dL Hct 32.7 L (41-53) % MCV 79.2 L (80-100) fL MCH 26.1 (26-34) PG MCHC 32.9 (30-36) % RDW 15.0 H (11.6-14.8) % Plt Count 419 H (150-400) X10^3/uL Neut % (Auto) 73.0 (50-75) % Lymph % (Auto) 12.9 L (25-40) % Dane % (Auto) 10.2 (3-14) % Eos % (Auto) 3.1 (2-4) % Baso % (Auto) 0.8 (0-2) % Neut # (Auto) 9800 H (1814-9611) /uL Lymph # (Auto) 1700 (2181-8351) /uL Dane # (Auto) 1400 H (0-900) /uL Eos # (Auto) 400 (0-450) /uL Baso # (Auto) 100 (0-100) /uL PT 14.9 H (10.1-12.7) SECONDS INR 1.3 (0.9-1.3) APTT 32 D (26.4-36.2) SECONDS D-Dimer (<230) ng/mL ABG pH (7.35-7.45) ABG pCO2 (35-45) mmHg ABG pO2 (80-100) mmHg ABG HCO3 (22-26) mmol/L ABG Total CO2 (21-31) mmol/L ABG O2 Saturation (95-100) % ABG Base Excess (-2-2) mmol/L FiO2 Sodium (137-145) mmol/L Potassium (3.4-5.1) mmol/L Chloride (98-107) mmol/L Carbon Dioxide (22-32) mmol/L BUN (9-20) mg/dL Creatinine (0.66-1.25) mg/dL Estimated GFR (>60) mL/min BUN/Creatinine Ratio (6-22) Glucose (80-110) mg/dL Lactate (0.7-2.1) mmol/L Calcium (8.4-10.2) mg/dL Magnesium (1.6-2.3) mg/dL Total Bilirubin (0.2-1.3) mg/dL AST (17-59) IU/L ALT (<50) IU/L Alkaline Phosphatase (38-126) U/L Total Protein (6.3-8.2) g/dL Albumin (3.5-5.0) g/dL Globulin (1.7-4.1) g/dL Albumin/Globulin Ratio (1.0-2.8) Lipase (23-300) U/L Procalcitonin 0.12 (<0.5) ng/mL TSH (0.47-4.68) uIU/mL Thyroxine (T4) (5.5-11.0) ug/dL Chlamy pneumoniae PCR (Not Detect) Adenovirus (PCR) (Not Detect) B.parapertussis DNA PCR (Not Detect) Coronavirus OC43 (PCR) (Not Detect) Coronavirus HKU1 (PCR) (Not Detect) Coronavirus 229E (PCR) (Not Detect) Coronavirus NL63 (PCR) (Not Detect) Human Metapneumovir PCR (Not Detect) Influenza A (RT-PCR) (NEGATIVE) Influenza Type A (PCR) (Not Detect) Influenza B (RT-PCR) (NEGATIVE) Influenza Type B (PCR) (Not Detect) M. pneumoniae (PCR) (Not Detect) Parainfluenza 1 (PCR) (Not Detect) Parainfluenza 2 (PCR) (Not Detect) Parainfluenza 3 (PCR) (Not Detect) Parainfluenza 4 (PCR) (Not Detect) RSV (PCR) (Not Detect) Entero/Rhino (PCR) (Not Detect) 06/08/19 06/08/19 06/08/19 Range/Units 17:58 17:58 17:58 WBC (4.5-11.0) X10^3/uL RBC (4.5-5.9) X10^6/uL Hgb (13.5-17.5) g/dL Hct (41-53) % MCV (80-100) fL MCH (26-34) PG MCHC (30-36) % RDW (11.6-14.8) % Plt Count (150-400) X10^3/uL Neut % (Auto) (50-75) % Lymph % (Auto) (25-40) % Dane % (Auto) (3-14) % Eos % (Auto) (2-4) % Baso % (Auto) (0-2) % Neut # (Auto) (7004-0824) /uL Lymph # (Auto) (6238-6621) /uL Dane # (Auto) (0-900) /uL Eos # (Auto) (0-450) /uL Baso # (Auto) (0-100) /uL PT (10.1-12.7) SECONDS INR (0.9-1.3) APTT (26.4-36.2) SECONDS D-Dimer 1277 H (<230) ng/mL ABG pH (7.35-7.45) ABG pCO2 (35-45) mmHg ABG pO2 (80-100) mmHg ABG HCO3 (22-26) mmol/L ABG Total CO2 (21-31) mmol/L ABG O2 Saturation (95-100) % ABG Base Excess (-2-2) mmol/L FiO2 Sodium 136 L (137-145) mmol/L Potassium 5.5 H (3.4-5.1) mmol/L Chloride 102 (98-107) mmol/L Carbon Dioxide 28 (22-32) mmol/L BUN 25 H (9-20) mg/dL Creatinine 1.20 (0.66-1.25) mg/dL Estimated GFR > 60.0 (>60) mL/min BUN/Creatinine Ratio 20.8 (6-22) Glucose 118 H (80-110) mg/dL Lactate 1.8 (0.7-2.1) mmol/L Calcium 9.2 (8.4-10.2) mg/dL Magnesium (1.6-2.3) mg/dL Total Bilirubin 0.3 (0.2-1.3) mg/dL AST 24 (17-59) IU/L ALT 15 (<50) IU/L Alkaline Phosphatase 94 (38-126) U/L Total Protein 7.8 (6.3-8.2) g/dL Albumin 3.7 (3.5-5.0) g/dL Globulin 4.1 (1.7-4.1) g/dL Albumin/Globulin Ratio 0.9 L (1.0-2.8) Lipase 54 (23-300) U/L Procalcitonin (<0.5) ng/mL TSH (0.47-4.68) uIU/mL Thyroxine (T4) (5.5-11.0) ug/dL Chlamy pneumoniae PCR (Not Detect) Adenovirus (PCR) (Not Detect) B.parapertussis DNA PCR (Not Detect) Coronavirus OC43 (PCR) (Not Detect) Coronavirus HKU1 (PCR) (Not Detect) Coronavirus 229E (PCR) (Not Detect) Coronavirus NL63 (PCR) (Not Detect) Human Metapneumovir PCR (Not Detect) Influenza A (RT-PCR) (NEGATIVE) Influenza Type A (PCR) (Not Detect) Influenza B (RT-PCR) (NEGATIVE) Influenza Type B (PCR) (Not Detect) M. pneumoniae (PCR) (Not Detect) Parainfluenza 1 (PCR) (Not Detect) Parainfluenza 2 (PCR) (Not Detect) Parainfluenza 3 (PCR) (Not Detect) Parainfluenza 4 (PCR) (Not Detect) RSV (PCR) (Not Detect) Entero/Rhino (PCR) (Not Detect) 06/08/19 06/08/19 06/08/19 Range/Units 17:58 17:58 18:52 WBC (4.5-11.0) X10^3/uL RBC (4.5-5.9) X10^6/uL Hgb (13.5-17.5) g/dL Hct (41-53) % MCV (80-100) fL MCH (26-34) PG MCHC (30-36) % RDW (11.6-14.8) % Plt Count (150-400) X10^3/uL Neut % (Auto) (50-75) % Lymph % (Auto) (25-40) % Dane % (Auto) (3-14) % Eos % (Auto) (2-4) % Baso % (Auto) (0-2) % Neut # (Auto) (9796-9202) /uL Lymph # (Auto) (2798-1407) /uL Dane # (Auto) (0-900) /uL Eos # (Auto) (0-450) /uL Baso # (Auto) (0-100) /uL PT (10.1-12.7) SECONDS INR (0.9-1.3) APTT (26.4-36.2) SECONDS D-Dimer (<230) ng/mL ABG pH 7.42 (7.35-7.45) ABG pCO2 39.6 (35-45) mmHg ABG pO2 53 L (80-100) mmHg ABG HCO3 26 (22-26) mmol/L ABG Total CO2 27 (21-31) mmol/L ABG O2 Saturation 87 L (95-100) % ABG Base Excess 1.0 (-2-2) mmol/L FiO2 21 Sodium (137-145) mmol/L Potassium (3.4-5.1) mmol/L Chloride (98-107) mmol/L Carbon Dioxide (22-32) mmol/L BUN (9-20) mg/dL Creatinine (0.66-1.25) mg/dL Estimated GFR (>60) mL/min BUN/Creatinine Ratio (6-22) Glucose (80-110) mg/dL Lactate (0.7-2.1) mmol/L Calcium (8.4-10.2) mg/dL Magnesium 1.1 L (1.6-2.3) mg/dL Total Bilirubin (0.2-1.3) mg/dL AST (17-59) IU/L ALT (<50) IU/L Alkaline Phosphatase (38-126) U/L Total Protein (6.3-8.2) g/dL Albumin (3.5-5.0) g/dL Globulin (1.7-4.1) g/dL Albumin/Globulin Ratio (1.0-2.8) Lipase (23-300) U/L Procalcitonin (<0.5) ng/mL TSH 0.26 L (0.47-4.68) uIU/mL Thyroxine (T4) 8.10 (5.5-11.0) ug/dL Chlamy pneumoniae PCR (Not Detect) Adenovirus (PCR) (Not Detect) B.parapertussis DNA PCR (Not Detect) Coronavirus OC43 (PCR) (Not Detect) Coronavirus HKU1 (PCR) (Not Detect) Coronavirus 229E (PCR) (Not Detect) Coronavirus NL63 (PCR) (Not Detect) Human Metapneumovir PCR (Not Detect) Influenza A (RT-PCR) (NEGATIVE) Influenza Type A (PCR) (Not Detect) Influenza B (RT-PCR) (NEGATIVE) Influenza Type B (PCR) (Not Detect) M. pneumoniae (PCR) (Not Detect) Parainfluenza 1 (PCR) (Not Detect) Parainfluenza 2 (PCR) (Not Detect) Parainfluenza 3 (PCR) (Not Detect) Parainfluenza 4 (PCR) (Not Detect) RSV (PCR) (Not Detect) Entero/Rhino (PCR) (Not Detect) 06/08/19 06/08/19 Range/Units 19:02 19:02 WBC (4.5-11.0) X10^3/uL RBC (4.5-5.9) X10^6/uL Hgb (13.5-17.5) g/dL Hct (41-53) % MCV (80-100) fL MCH (26-34) PG MCHC (30-36) % RDW (11.6-14.8) % Plt Count (150-400) X10^3/uL Neut % (Auto) (50-75) % Lymph % (Auto) (25-40) % Dane % (Auto) (3-14) % Eos % (Auto) (2-4) % Baso % (Auto) (0-2) % Neut # (Auto) (5753-3803) /uL Lymph # (Auto) (8634-5712) /uL Dane # (Auto) (0-900) /uL Eos # (Auto) (0-450) /uL Baso # (Auto) (0-100) /uL PT (10.1-12.7) SECONDS INR (0.9-1.3) APTT (26.4-36.2) SECONDS D-Dimer (<230) ng/mL ABG pH (7.35-7.45) ABG pCO2 (35-45) mmHg ABG pO2 (80-100) mmHg ABG HCO3 (22-26) mmol/L ABG Total CO2 (21-31) mmol/L ABG O2 Saturation (95-100) % ABG Base Excess (-2-2) mmol/L FiO2 Sodium (137-145) mmol/L Potassium (3.4-5.1) mmol/L Chloride (98-107) mmol/L Carbon Dioxide (22-32) mmol/L BUN (9-20) mg/dL Creatinine (0.66-1.25) mg/dL Estimated GFR (>60) mL/min BUN/Creatinine Ratio (6-22) Glucose (80-110) mg/dL Lactate (0.7-2.1) mmol/L Calcium (8.4-10.2) mg/dL Magnesium (1.6-2.3) mg/dL Total Bilirubin (0.2-1.3) mg/dL AST (17-59) IU/L ALT (<50) IU/L Alkaline Phosphatase (38-126) U/L Total Protein (6.3-8.2) g/dL Albumin (3.5-5.0) g/dL Globulin (1.7-4.1) g/dL Albumin/Globulin Ratio (1.0-2.8) Lipase (23-300) U/L Procalcitonin (<0.5) ng/mL TSH (0.47-4.68) uIU/mL Thyroxine (T4) (5.5-11.0) ug/dL Chlamy pneumoniae PCR Not detected (Not Detect) Adenovirus (PCR) Not detected (Not Detect) B.parapertussis DNA PCR Not detected (Not Detect) Coronavirus OC43 (PCR) Not detected (Not Detect) Coronavirus HKU1 (PCR) Not detected (Not Detect) Coronavirus 229E (PCR) Not detected (Not Detect) Coronavirus NL63 (PCR) Not detected (Not Detect) Human Metapneumovir PCR Not detected (Not Detect) Influenza A (RT-PCR) Flu a negative (NEGATIVE) Influenza Type A (PCR) Not detected (Not Detect) Influenza B (RT-PCR) Flu b negative (NEGATIVE) Influenza Type B (PCR) Not detected (Not Detect) M. pneumoniae (PCR) Not detected (Not Detect) Parainfluenza 1 (PCR) Not detected (Not Detect) Parainfluenza 2 (PCR) Not detected (Not Detect) Parainfluenza 3 (PCR) Not detected (Not Detect) Parainfluenza 4 (PCR) Not detected (Not Detect) RSV (PCR) Not detected (Not Detect) Entero/Rhino (PCR) Not detected (Not Detect) Imaging Data Chest x-ray: Radiologist's Impression: [address] [address] XRay Report Signed Patient: Yash Davila [facility]#: [id number] : 5Acct:[id number] Age/Sex: 64 / MDate of Service: 06/08/19 Loc: ED Accession Number: [id number] Procedure: XR chest 1V Ordering Provider: Andre Willett D.O. PROCEDURE: XR CHEST 1V INDICATIONS: suspected sepsis TECHNIQUE: One view of the chest was acquired. COMPARISON: [facility], , XR CHEST 1V, 05/06/2019, 4:23. FINDINGS: Surgical changes and devices: Left subclavian Mediport. Lungs and pleura: Chronic, thick walled cavitation involving the right upper lung field. The lungs are otherwise normally aerated. Chronically coarse interstitial markings and left apical pleural plaquing. No pleural effusions or pneumothorax. Mediastinum: Mediastinal contours appear normal. Heart size is normal. Bones and chest wall: No suspicious bony lesions. Overlying soft tissues appear unremarkable. IMPRESSION: 1. No significant changes. 2. Chronic right upper lobe cavitary lesion without significant change. 3. Left Mediport in stable position. Dictated by: Jyothi Roy M.D. on 06/08/2019 at 18:36 Approved by: Jyothi Roy M.D. on 06/08/2019 at 18:38 Critical Care Time Critical Care Time Critical Care Time: Yes Total Critical Care Time: 30 Attestation: The high probability of a clinically significant, sudden or life threatening deterioration of the [CV] system(s) required my full and direct attention, intervention and personal management. The aggregate critical care time was [30] minutes. This time is in addition to time spent performing reported procedures but includes the following: [x] Data Review and interpretation [x] Patient assessment and monitoring of vital signs [x] Documentation [x] Medication orders and management Discharge Plan Departure Patient Disposition: Admitted As Inpatient Clinical Impression: Sepsis with acute hypoxic respiratory failure Discharge Date/Time: 06/08/19 22:45 Admit Date/Time: 06/08/19 20:23 Admit Provider: Yash Barbosa
[2019-06-08 18:21] LABS: Lactate (Lactic Acid) 1.8 mmol/L (0.7-2.1)
[2019-06-08 18:22] LABS: Alanine Aminotransferase 15 IU/L (<50); Albumin 3.7 g/dL (3.5-5.0); Albumin Globulin Ratio 0.9 (1.0-2.8); Alkaline Phosphatase 94 U/L (38-126); Aspartate Aminotransferase 24 IU/L (17-59); BUN Creatinine Ratio 20.8 (6-22); Bilirubin Total 0.3 mg/dL (0.2-1.3); Blood Urea Nitrogen 25 mg/dL (9-20); Calcium 9.2 mg/dL (8.4-10.2); Carbon Dioxide 28 mmol/L (22-32); Chloride 102 mmol/L (98-107); Estimated Glomerular Filt Rate > 60.0 mL/min (>60); Globulin 4.1 g/dL (1.7-4.1); Glucose 118 mg/dL (80-110); HEMOLYSIS < 15 (0-50); Lipase 54 U/L (23-300); Potassium 5.5 mmol/L (3.4-5.1); Sodium 136 mmol/L (137-145); Total Protein 7.8 g/dL (6.3-8.2)
[2019-06-08] MEDS: CEFTRIAXONE 1 GM/50 ML FROZ.PIGGY IV (18:40)
[2019-06-08 18:41] LABS: Procalcitonin 0.12 ng/mL (<0.5)
[2019-06-08] MEDS: SODIUM CHLORIDE 0.9% 621.42 ML IV (18:41)
[2019-06-08 19:01] LABS: Fractionated Inspired Oxygen 21; HCO3 ABG 26 mmol/L (22-26); Oxygen Saturation ABG 87 % (95-100); PCO2 ABG 39.6 mmHg (35-45); PO2 ABG 53 mmHg (80-100); TCO2 ABG 27 mmol/L (21-31); pH ABG 7.42 (7.35-7.45)
[2019-06-08 19:26] LABS: D Dimer 1277 ng/mL (<230)
[2019-06-08 19:49] LABS: Influenza A - CEPHEID Flu A NEGATIVE (NEGATIVE); Influenza B - CEPHEID Flu B NEGATIVE (NEGATIVE)
[2019-06-08] MEDS: AZITHROMYCIN 500 MG in DEXTROSE 5% IN WATER 250 ML IV (19:56)
[2019-06-08] MEDS: KETOROLAC 60 MG/2 ML VIAL 15 MG IV (19:56)
[2019-06-08 20:51] LABS: Magnesium 1.1 mg/dL (1.6-2.3)
[2019-06-08 21:46] LABS: Thyroid Stimulating Hormone 0.26 uIU/mL (0.47-4.68)
[2019-06-08 21:57] LABS: Adenovirus Not Detected (Not Detect); Bordetella pertussis Not Detected (Not Detect); Chlamydophila pneumoniae Not Detected (Not Detect); Coronavirus 229E Not Detected (Not Detect); Coronavirus HKU1 Not Detected (Not Detect); Coronavirus NL 63 Not Detected (Not Detect); Coronavirus OC43 Not Detected (Not Detect); Human Metapneumovirus Not Detected (Not Detect); Human Rhinovirus/Enterovirus Not Detected (Not Detect); Influenza A Not Detected (Not Detect); Influenza B Not Detected (Not Detect); Mycoplasma pneumoniae Not Detected (Not Detect); Parainfluenza Virus 1 Not Detected (Not Detect); Parainfluenza Virus 2 Not Detected (Not Detect); Parainfluenza Virus 3 Not Detected (Not Detect); Parainfluenza Virus 4 Not Detected (Not Detect); Respiratory Syncytial Virus Not Detected (Not Detect)
--- NOTE | 2019-06-08 22:10 | PM.HP.1 ---
History of Present Illness History of Present Illness Date Patient Seen: 06/08/19 Time Patient Seen: 23:20 Chief complaint: chest pain, cough - productive, hx cancer of lung Narrative: Mr. Yash Davila is a 64-year-old male with history significant for COPD with right upper lobe cavitation, history of lung cancer status post chemotherapy, DVT right upper extremity no longer on anticoagulation, chronic right chest and back pain, peripheral neuropathy, GERD, hypothyroidism and depression who presents to the ER with shortness of breath. The patient states he has had shortness of breath for months that has been progressive and became worse 5 days ago with new onset of left chest wall pain radiating through to the back with a history of unknown right upper extremity DVT. Patient previously was on anticoagulation with Xarelto That was discontinued due to hemoptysis. Prior to Xarelto the patient was treated Lovenox without complication. The patient has extensive history of COPD with cavitation of the right upper lung and describes difficulty walking 20-30 feet. He has had a productive cough for yellow sputum that he said is also been persistent for months. In regard to his history lung cancer he was treated with nivolimb from 11/2015 through 02/22/2018. The treatment was discontinued related to concerns for pneumonitis. Dr. Young currently follows the patient for Oncology and Dr. Dutton for pulmonology. The patient describes having fevers off and on with associated body aches and skin hypersensitivity. He denies headaches or dizziness, no nasal congestion or sore throat. He has chronic right-sided chest pain predominantly in back and new onset left chest pain that is pleuritic in character making it difficult a copy breath. He denies palpitations. His shortness of breath is chronic and progressive as above. He denies abdominal pain, nausea vomiting, diarrhea or constipation. Denies difficulty urinating. He has residual neuropathy following his chemotherapy treatments. Upon arrival to the ER the patient has temperature 100.5, heart rate of 101, blood pressure 151/69, respirations 24 saturating 89% on room air. His chest x-ray shows chronic right upper lobe cavitary lesion with left Shana plaquing, chronic coarse interstitial lung markings, left MediPort, no significant changes from prior imaging. On anterior blood gas is a pH of 7.42, PO2 of 53, pCO2 27, bicarb 26 and a base 7 assess of +1 on 21% FiO2. On laboratory analysis he has a white count of 13.5 with an increase in neutrophil count, hemoglobin of 10.7, hematocrit 32.7, platelets of 419. On coagulation he has a PT of 14.9, INR of 1.3, PTT of 32. Has an elevated D-dimer of 1277. On chemistries he has an elevated potassium 5.5, BUN of 25 and creatinine 1.2, his nonfasting glucose is 118. His liver function tests are within normal limits with a albumin of 3.7. His lactic acid 1.8 and procalcitonin of 0.12. The patient was treated under sepsis guidelines in the emergency depart receiving sepsis saline bolus of 30 cc/kilos started on azithromycin and ceftriaxone. Received Toradol for pain. The patient has met screening triggers for COVID-19 and the pelvic out department has been contacted. Samples are obtained on the patient is in the ER with follow-up by [facility] in the morning. The patient is admitted to the hospital with droplet precautions for acute hypoxic respiratory failure, hypokalemia. Patient History Medical History COPD (chronic obstructive pulmonary disease) (Chronic) Depression (Acute) DVT of upper extremity (deep vein thrombosis) (Acute) GERD (gastroesophageal reflux disease) (Acute) Hypothyroid (Chronic) Lung cancer, primary, with metastasis from lung to other site (Chronic) PEG (percutaneous endoscopic gastrostomy) adjustment/replacement/removal (Acute) Peripheral neuropathy (Acute) Surgical History History of lung biopsy (Acute) Family & Social History Family History Mother Congestive heart failure Father Unknown family medical history Social History: household members caregiver,other Safety & Behavioral: Feels Safe in Current Yes Environment Been Physically Hurt or No Threatened By a Person Tobacco & Substance use: Tobacco type cigarettes Smoking Status Current every day smoker alcohol intake former alcohol intake frequency 0-2 drinks per day Substance Use Type does not use Comment: Advanced directives: The patient states desire to be FULL CODE. The patient designates Tomasa Davila to be his surrogate decision maker. Meds Home Medications and Allergies Home Medications Medication Instructions Recorded Confirmed Type albuterol sulfate [ProAir HFA] 1 puff INH Q6H 03/18/18 05/06/19 History ipratropium-albuterol 3 ml INH Q4HR PRN #40 ml 03/20/18 05/06/19 Rx esomeprazole magnesium 20 mg PO DAILY #90 cap 05/19/18 05/06/19 Rx sertraline [Zoloft] 75 mg PO DAILY 06/23/18 05/06/19 History lidocaine 1 patch TOP Q24H PRN #1 each 03/17/19 05/06/19 Rx levothyroxine 150 mcg PO DAILY #90 tab 04/11/19 05/06/19 Rx pregabalin [Lyrica] 50 mg PO TID #90 cap 04/11/19 05/06/19 Rx amoxicillin-pot clavulanate 1 tab PO DAILY 05/07/19 05/07/19 History [Augmentin] oxycodone 10 mg PO Q4H PRN #180 tab 06/05/19 Rx tramadol 50 mg PO BID PRN #60 tab 06/05/19 Rx Allergies Allergy/AdvReac Type Severity Reaction Status Date / Time aspirin [ASPIRIN] AdvReac Mild NAUSEA Verified 06/08/19 17:51 Review of Systems Review of Systems ROS: Yes All systems reviewed with the patient and are negative except as otherwise documented Exam Vital Signs (past 8 hours): - 06/08/19 17:48 06/08/19 18:00 06/08/19 19:00 Temperature 100.5 F H Pulse Rate 101 H 99 H 97 H Respiratory Rate 24 20 22 Blood Pressure 151/69 H Blood Pressure [Left Arm] 112/53 L 125/68 Pulse Oximetry 95 93 89 L 06/08/19 19:05 06/08/19 19:30 06/08/19 20:00 Temperature Pulse Rate 97 H 94 H Respiratory Rate 22 21 Blood Pressure Blood Pressure [Left Arm] 124/64 100/51 L Pulse Oximetry 96 98 97 06/08/19 20:30 06/08/19 21:00 Temperature Pulse Rate 93 H 89 Respiratory Rate 20 Blood Pressure Blood Pressure [Left Arm] 116/62 93/62 Pulse Oximetry 97 94 Oxygen Delivery Method Nasal Cannula Oxygen Flow Rate 2 Narrative Exam Narrative: GENERAL APPEARANCE: well developed, malnourished, lying semi recumbent in bed with mild respiratory distress. HEENT: Normocephalic, PERRLA, conjunctiva clear, EOMs intact without nystagmus, no rhinorrhea, mucous membranes are dry and pink. NECK/THYROID: neck supple, no JVD, no thyromegaly, trachea midline. LYMPH NODES: no cervical or supraclavicular lymphadenopathy. SKIN: [place], warm and dry, no visible lesions, rashes, ulcerations or petechiae. HEART: regular rate and rhythm, S1-S2, no murmur, no rubs or gallops, brisk capillary refill, no edema LUNGS: Diminished breath sounds in all monte, central coarseness, no basilar crackles or wheezing, frequent coughing with deep inspiration CHEST: Symmetrical movement, no accessory muscle use, prolonged expiratory phase ABDOMEN: Soft, no distention, no abdominal tenderness, no guarding or peritoneal signs, no organomegaly, no flank or suprapubic tenderness, active bowel tones. BACK: Normal curvature, nontender to palpation, no CVA tenderness on percussion, no back pain with straight leg raise EXTREMITIES: Pain on palpation upper right arm with no swelling or erythema, moves all extremities, strength is 5/5 and symmetrical, no deformities or joint effusions. NEUROLOGIC: AAO x4, no focal neurologic deficits, cranial nerves II-XII grossly intact, bilateral lower extremity neuropathy hearing grossly normal to speech. PSYCH: Anxious, restless, cooperative, stable behavior Objective Labs Result Diagrams: 06/08/19 17:58 06/08/19 17:58 Labs: Laboratory Results - last 24 hr 06/08/19 06/08/19 06/08/19 17:58 17:58 17:58 WBC 13.5 H RBC 4.12 L Hgb 10.7 L Hct 32.7 L MCV 79.2 L MCH 26.1 MCHC 32.9 RDW 15.0 H Plt Count 419 H Neut % (Auto) 73.0 Lymph % (Auto) 12.9 L [place] % (Auto) 10.2 Eos % (Auto) 3.1 Baso % (Auto) 0.8 Neut # (Auto) 9800 H Lymph # (Auto) 1700 [place] # (Auto) 1400 H Eos # (Auto) 400 Baso # (Auto) 100 PT 14.9 H INR 1.3 APTT 32 D D-Dimer ABG pH ABG pCO2 ABG pO2 ABG HCO3 ABG Total CO2 ABG O2 Saturation ABG Base Excess FiO2 Sodium Potassium Chloride Carbon Dioxide BUN Creatinine Estimated GFR BUN/Creatinine Ratio Glucose Lactate Calcium Magnesium Total Bilirubin AST ALT Alkaline Phosphatase Total Protein Albumin Globulin Albumin/Globulin Ratio Lipase Procalcitonin 0.12 TSH Thyroxine (T4) Chlamy pneumoniae PCR Adenovirus (PCR) B.parapertussis DNA PCR Coronavirus OC43 (PCR) Coronavirus HKU1 (PCR) Coronavirus 229E (PCR) Coronavirus NL63 (PCR) Human Metapneumovir PCR Influenza A (RT-PCR) Influenza Type A (PCR) Influenza B (RT-PCR) Influenza Type B (PCR) M. pneumoniae (PCR) Parainfluenza 1 (PCR) Parainfluenza 2 (PCR) Parainfluenza 3 (PCR) Parainfluenza 4 (PCR) RSV (PCR) Entero/Rhino (PCR) 06/08/19 06/08/19 06/08/19 17:58 17:58 17:58 WBC RBC Hgb Hct MCV MCH MCHC RDW Plt Count Neut % (Auto) Lymph % (Auto) [place] % (Auto) Eos % (Auto) Baso % (Auto) Neut # (Auto) Lymph # (Auto) [place] # (Auto) Eos # (Auto) Baso # (Auto) PT INR APTT D-Dimer 1277 H ABG pH ABG pCO2 ABG pO2 ABG HCO3 ABG Total CO2 ABG O2 Saturation ABG Base Excess FiO2 Sodium 136 L Potassium 5.5 H Chloride 102 Carbon Dioxide 28 BUN 25 H Creatinine 1.20 Estimated GFR > 60.0 BUN/Creatinine Ratio 20.8 Glucose 118 H Lactate 1.8 Calcium 9.2 Magnesium Total Bilirubin 0.3 AST 24 ALT 15 Alkaline Phosphatase 94 Total Protein 7.8 Albumin 3.7 Globulin 4.1 Albumin/Globulin Ratio 0.9 L Lipase 54 Procalcitonin TSH Thyroxine (T4) Chlamy pneumoniae PCR Adenovirus (PCR) B.parapertussis DNA PCR Coronavirus OC43 (PCR) Coronavirus HKU1 (PCR) Coronavirus 229E (PCR) Coronavirus NL63 (PCR) Human Metapneumovir PCR Influenza A (RT-PCR) Influenza Type A (PCR) Influenza B (RT-PCR) Influenza Type B (PCR) M. pneumoniae (PCR) Parainfluenza 1 (PCR) Parainfluenza 2 (PCR) Parainfluenza 3 (PCR) Parainfluenza 4 (PCR) RSV (PCR) Entero/Rhino (PCR) 06/08/19 06/08/19 06/08/19 17:58 17:58 18:52 WBC RBC Hgb Hct MCV MCH MCHC RDW Plt Count Neut % (Auto) Lymph % (Auto) [place] % (Auto) Eos % (Auto) Baso % (Auto) Neut # (Auto) Lymph # (Auto) [place] # (Auto) Eos # (Auto) Baso # (Auto) PT INR APTT D-Dimer ABG pH 7.42 ABG pCO2 39.6 ABG pO2 53 L ABG HCO3 26 ABG Total CO2 27 ABG O2 Saturation 87 L ABG Base Excess 1.0 FiO2 21 Sodium Potassium Chloride Carbon Dioxide BUN Creatinine Estimated GFR BUN/Creatinine Ratio Glucose Lactate Calcium Magnesium 1.1 L Total Bilirubin AST ALT Alkaline Phosphatase Total Protein Albumin Globulin Albumin/Globulin Ratio Lipase Procalcitonin TSH 0.26 L Thyroxine (T4) 8.10 Chlamy pneumoniae PCR Adenovirus (PCR) B.parapertussis DNA PCR Coronavirus OC43 (PCR) Coronavirus HKU1 (PCR) Coronavirus 229E (PCR) Coronavirus NL63 (PCR) Human Metapneumovir PCR Influenza A (RT-PCR) Influenza Type A (PCR) Influenza B (RT-PCR) Influenza Type B (PCR) M. pneumoniae (PCR) Parainfluenza 1 (PCR) Parainfluenza 2 (PCR) Parainfluenza 3 (PCR) Parainfluenza 4 (PCR) RSV (PCR) Entero/Rhino (PCR) 06/08/19 06/08/19 19:02 19:02 WBC RBC Hgb Hct MCV MCH MCHC RDW Plt Count Neut % (Auto) Lymph % (Auto) [place] % (Auto) Eos % (Auto) Baso % (Auto) Neut # (Auto) Lymph # (Auto) [place] # (Auto) Eos # (Auto) Baso # (Auto) PT INR APTT D-Dimer ABG pH ABG pCO2 ABG pO2 ABG HCO3 ABG Total CO2 ABG O2 Saturation ABG Base Excess FiO2 Sodium Potassium Chloride Carbon Dioxide BUN Creatinine Estimated GFR BUN/Creatinine Ratio Glucose Lactate Calcium Magnesium Total Bilirubin AST ALT Alkaline Phosphatase Total Protein Albumin Globulin Albumin/Globulin Ratio Lipase Procalcitonin TSH Thyroxine (T4) Chlamy pneumoniae PCR Not detected Adenovirus (PCR) Not detected B.parapertussis DNA PCR Not detected Coronavirus OC43 (PCR) Not detected Coronavirus HKU1 (PCR) Not detected Coronavirus 229E (PCR) Not detected Coronavirus NL63 (PCR) Not detected Human Metapneumovir PCR Not detected Influenza A (RT-PCR) Flu a negative Influenza Type A (PCR) Not detected Influenza B (RT-PCR) Flu b negative Influenza Type B (PCR) Not detected M. pneumoniae (PCR) Not detected Parainfluenza 1 (PCR) Not detected Parainfluenza 2 (PCR) Not detected Parainfluenza 3 (PCR) Not detected Parainfluenza 4 (PCR) Not detected RSV (PCR) Not detected Entero/Rhino (PCR) Not detected Assessment & Plan Assessment & Plan narrative: This is a 64-year-old male patient who presents with acute on chronic respiratory failure with worsening difficulty breathing over the last 5 days with a his/emphysema, productive cough with yellow sputum. He describes new onset left chest pain, pleuritic in nature with a known history of a right axillary DVT. 1. Acute hypoxic respiratory failure on chronic respiratory failure with emphysema, present on admission, active. -Patient describes shortness of breath worsening for months and has had a cough productive for yellow sputum for 1 month. He reports having fevers since receiving pneumonia and flu vaccine beginning of May. -The patient presents with an elevated temperature 100.5?, elevated white count at 13.5 with increased neutrophils, procalcitonin is 0.12, lactic acid is 1.0. Arterial blood gas finds pH 7.42, pCO2 of 27, PO2 53, bicarbonate 26, base excess +1, saturation calculated 87% on 21% FiO2. -patient previously treated for a right upper lung abscess. -blood cultures obtained in ED -started azithromycin 500 mg daily for 3 days and ceftriaxone 2 g IV daily. -once patient afebrile likely can transition him back to oral suppressive therapy with Augmentin 2. Right upper lobe cavitary lesion, present on admission, active -unchanged in appearance on current chest x-ray. He has previously had negative cultures on bronchoscopy end of April at [place]. -patient has had productive cough with yellow sputum for 1 month since having been taken off suppressive antibiotics. -will obtain a sputum culture. -started azithromycin 500 mg daily for 3 days and ceftriaxone 2 g IV da -will monitor infectious markers. 3. Chronic right axillary DVT, present on admission, active -continuing right upper arm pain, Xarelto discontinued due to hemoptysis. -new onset left chest pain pleuritic in character, severe with deep inspiration, positive cough and elevated D-dimer at 1277. -concern for pulmonary embolus, ordered CT angiogram PE protocol. -patient has previously tolerated Lovenox will restart Lovenox 1 milligram/kilogram twice daily. -will monitor for complications of bleeding 4. Metastatic adenocarcinoma -chronic right chest pain due to rib metastases -continue patient's oxycodone 10 mg q.4 hours as needed, continue Lyrica 50 mg t.i.d. 5. Acquired hypothyroidism, chronic, present on admission, stable. Will continue patient's current home regimen of levothyroxine 150 mcg daily. VTE prophylaxis: SCDs, therapeutic Lovenox. IV fluid: 100 cc/hour normal saline. Diet: High-protein low-sodium. Isolation: Patient is on droplet precautions pending follow-up with [facility] for evaluation of novel alberts virus screening The patient is admitted to the hospital due to the severity of his symptoms, risk of complications and adverse events. The patient is admitted as an inpatient with expected length of stay to be greater than 2 midnights. Scores GCS [place] coma scale eye opening: Spontaneous Kevin coma scale verbal response: Orientated Kevin coma scale motor response: Obey commands Kevin coma scale total score: 15 SOFA PaO2/FIO2: < 300 mmHg Platelets: >= 150 Bilirubin: < 1.2 mg/dL Hypotension: MAP >= 70 mmHg [place] Coma Scale: 15 Renal: < 1.2 mg/dL SOFA Score: 2
[2019-06-08] MEDS: SODIUM CHLORIDE 0.9% 1,000 ML 75 ML IV (22:48)
[2019-06-08] MEDS: MAGNESIUM SULFATE 2 GM/50 ML PIGGYBACK IV (22:56)
[2019-06-08] MEDS: OXYCODONE IR 10 MG TABLET PO (22:56)
[2019-06-09] VITALS (15 sets, daily range): BP systolic 104–122; BP diastolic 49–69; PULSE 74–90; RESP 20–27; TEMP 37.1–38.1; O2SAT 90–98; BMI 18.6
[2019-06-09] MEDS: PREGABALIN 50 MG CAPSULE PO ×4 (00:35→21:09)
[2019-06-09] MEDS: ENOXAPARIN 80 MG/0.8 ML SYRINGE 60 MG SUBCUT ×2 (00:35→09:09)
[2019-06-09] MEDS: OXYCODONE IR 10 MG TABLET PO ×6 (00:35→21:10)
[2019-06-09] MEDS: ALBUTEROL/IPRATROPIUM 3 ML AMPUL INH ×4 (00:41→21:40)
--- NOTE | 2019-06-09 01:16 | PC.NURSE ---
Late entry 1250 - Pt very short of breath with O2 sats at 80% on 2L O2. Course crackles in lungs. Pt moving around in bed crying help I can't breath O2 turned up to 5L and RT called for tx. Familia VAZQUEZ notified. Breathing tx giving. Pt still reports shortness of breath with o2 sats at 88% on 3L o2. 0118: Pt now resting in bed without complaints. O2 sats running at 92% on 2L O2. WCTM
[2019-06-09 05:25] LABS: Add Manual Diff / Slide Review NO; Basophils Absolute Auto 400 /uL (0-100); Basophils Percent Auto 3.3 % (0-2); Eosinophils Absolute Auto 400 /uL (0-450); Eosinophils Percent Auto 3.4 % (2-4); Hematocrit 32.5 % (41-53); Hemoglobin 10.8 g/dL (13.5-17.5); Lymphocytes Absolute Auto 2000 /uL (1100-4500); Lymphocytes Percent Auto 18.5 % (25-40); Mean Corpuscular HGB Conc 33.3 % (30-36); Mean Corpuscular Hemoglobin 26.7 PG (26-34); Mean Corpuscular Volume 80.1 fL (80-100); Monocytes Absolute Auto 1000 /uL (0-900); Monocytes Percent Auto 9.6 % (3-14); Neutrophils Absolute Auto 7100 /uL (1500-7000); Neutrophils Percent Auto 65.2 % (50-75); Platelet Count 367 X10^3/uL (150-400); Red Blood Cell Count 4.06 X10^6/uL (4.5-5.9); White Blood Cell Count 10.9 X10^3/uL (4.5-11.0)
[2019-06-09] MEDS: PANTOPRAZOLE 20 MG TABLET PO (05:25)
[2019-06-09 05:32] LABS: Blood Urea Nitrogen 23 mg/dL (9-20); Calcium 8.5 mg/dL (8.4-10.2); Carbon Dioxide 24 mmol/L (22-32); Chloride 108 mmol/L (98-107); Estimated Glomerular Filt Rate > 60.0 mL/min (>60); Glucose 77 mg/dL (80-110); HEMOLYSIS < 15 (0-50); Potassium 4.9 mmol/L (3.4-5.1); Sodium 137 mmol/L (137-145)
[2019-06-09] MEDS: LEVOTHYROXINE 150 MCG TABLET PO (09:10)
[2019-06-09] MEDS: SERTRALINE 50 MG TABLET 75 MG PO (09:10)
[2019-06-09] MEDS: SODIUM CHLORIDE 0.9% 1,000 ML 100 ML IV ×2 (10:21→20:26)
--- NOTE | 2019-06-09 10:36 | PC.NURSE ---
Addendum entered by Jimena Ugarte R.N. 06/09/19 15:49: Per Dr. Ham at 1430, pt okay to have his own Albuterol inhaler left at the bedside. Addendum entered by Jimena Ugarte R.N. 06/09/19 13:58: At 1300, Dr. Ham made aware of pt's body movements and twitching. Pt is alert and having conversation during this movements. Dr. Ham to see pt today. No new orders at this time. Original Note: Day Shift- Unable to utilize isolation disposable stethoscope due to PAPR airflow disrupts hearing upon auscultation. Own stethoscope used and cleaned per hospital policy and protocol. Pt A&OX4, jokes at times, answers appropriately. Reports 6/10 pain aching to right chest radiating to back. ANd left lower flank/chest when coughing. States right chest and upper back pain does not go below a 4/10. Denies feeling short of breath with rest. Anterior mid and upper lung monte upon auscultation are coarse. Pt reports having right upper lobe lung removed. Posterior lung monte throughout are diminished. Pt has intermittent cough with neville thick colored sputum. On 3L NC, O2 sat 98%, on continuous O2 monitoring. Pt remains in airborne isolation precautions. No patient visitors thus far today. Pt has what appears to be involuntary torso and upper extremity movements, pt states he gets these movements after he wakes up. Will monitor. High fall risk precautions in place, bed alarm on, call light within reach. Pt did perform bed dangle with bed alarm on, moves himself indep in bed.
--- NOTE | 2019-06-09 11:15 | DIET.PN ---
Dietary Progress Note Assessment: 64y M found to have metastatic adenocacinoma to ribs referred to nutrition for malnourished state. Pt current daily smoker c COPD, hx of lung ca, current difficulty breathing and thick sputum. Pt has no teeth and prefers soft diet. HT: 182.8cm WT: 62.1kg UBW: 66kg BMI: 18.6 MNA: 9 at risk for malnutrition Brian: 22 Nutrition Diagnosis: Chronic Moderate PCM r/t difficulty meeting EERs secondary to reduced lung function aeb pt hx of lung ca c current mets to ribs, hx COPD, BMI 18.6 (severe for age), 6% wt loss in 5 mo. Interventions: 1. Recc mech soft diet per pt preference r/t no teeth 2. high PRO, low Na per MD 3. Recc ONS enlive tid to support chronic PCM as pt having difficulty breathing, thick sputum, and, therefore, difficulty eating to meet EERs Diet Order: Heart Healthy, mech soft, high PRO, low Na, enlive tid EER: 2000kcal, 80g PRO (1.3g/kg per malnutrition), 1.9L fluids Monitoring/Evaluations: POs, ONS tolerance
[2019-06-09 12:32] LABS: Bacteria Urine None Seen; RBC Urine None Seen (0-5/HPF); WBC Urine None Seen (0-5/HPF)
[2019-06-09 12:33] LABS: Appearance Urine UA CLEAR; Bilirubin Urine UA NEGATIVE (NEGATIVE); Color Urine UA YELLOW; Glucose Urine UA NEGATIVE (Negative); Ketones Urine UA NEGATIVE (NEGATIVE); Leukocyte Esterase Urine UA NEGATIVE (NEGATIVE); Nitrite Urine UA NEGATIVE (Negative); Occult Blood Urine UA NEGATIVE (Negative); Protein Urine UA NEGATIVE (Negative); Urobilinogen Urine UA 0.2 E.U./dL (0.2); pH Urine UA 5.5 (4.5-8.0)
[2019-06-09 12:38] LABS: Culture Indicated Urine Cult Not Indicated; Urine Comments Microscopic Normal
--- NOTE | 2019-06-09 15:23 | CM.IDA ---
Discharge Planning/Care Management CM Discharge Assessment Start: 06/09/19 15:10 Freq: Status: Active Protocol: Document 06/09/19 15:10 ELEAZAR (Rec: 06/09/19 15:23 ELEAZAR [id number]) Discharge Planning Assessment Assigned Yarder Boss JOSH Mcghee DPOA/Assigned Designee Name Tomasa Davila, spouse Contact Information [phone] Advance Directives? Yes: POLST Advance Directives on File Yes: dated August 27: CPR Full Treatment/Medical Intervenitons History Provided By Medical Record Prior Living Arrangements House Household Members other Independent with ADL's Yes: H/o Metastatic adenocarcinoma Is patient alert and oriented? Yes Comment 2 canes and 4ww prn Barriers to Discharge Yes Comment Reviewed chart. Pt presents w/ SOB and was admitted to the hospital with droplet precautions for acute hypoxic respiratory failure, hypokalemia. COVID-19 r/o Pt lives at home w/family, has peg tube, h/o Metastatic adenocarcinoma. nursing notes indicate pt has developed involuntary torso and UE movements, Dr Ham made aware D/t pt's droplet precaution/ COVID-19 r/o, and no immediate need from this [employer] for DC planning, stayed out of pt's room today, will plan to assess further as soon as is appropriate. Discharge Plan Home Transportation Arrangement family Additional Comment Pending further assessment of DC needs Review Status In Process
--- NOTE | 2019-06-09 17:54 | P.PN_ITS ---
Subjective Subjective Date Patient Seen: 06/09/19 Time Patient Seen: 17:54 Interval history: Mr. Yash Davila is a 64-year-old male with history significant for COPD with right upper lobe cavitation, history of lung cancer status post chemotherapy, DVT right upper extremity no longer on anticoagulation, chronic right chest and back pain, peripheral neuropathy, GERD, hypothyroidism and depression who presented to the emergency room with shortness of breath. This is been progressive over the past many months, but was slightly worsened over the previous 5 days. The patient does not have an infiltrate on XR imaging per radiologist reading. I discussed the case with [facility] given concern for possible COVID-19 infection. Case was referred to the wine pasteurizer, who stated that patient is currently a low risk , but not no risk. Given that statement, and availability of COVID 19 testing through [facility], decision was made to send the sample for testing. The most likely etiology for his dyspnea remains a PE, however CT angiogram is currently unavailable due to a malfunctioning contrast injector. The patient is on therapeutic lovenox at this time for likely PE, but CT angiogram is being delayed for above malfunction. He remains on appropriate airborne precautions in a negative pressure isolation room. He complains of cough and some chest pain on cough. He does not feel any different today than on admission. Exam Vital Signs (past 8 hours): - 06/09/19 11:29 06/09/19 14:30 06/09/19 14:45 Temperature 99 F Pulse Rate 74 Respiratory Rate 27 H Blood Pressure 114/61 Pulse Oximetry 93 91 95 06/09/19 15:59 Temperature 99.1 F Pulse Rate 83 Respiratory Rate 22 Blood Pressure 122/69 Pulse Oximetry 91 Oxygen Delivery Method Nasal Cannula Oxygen Flow Rate 2 Narrative Exam Narrative: GENERAL APPEARANCE: well developed, malnourished, sitting upright in bed without acute distress. HEENT: Normocephalic, PERRLA, conjunctiva clear, EOMs intact without nystagmus, no rhinorrhea, mucous membranes are moist and pink. NECK/THYROID: neck supple, no JVD, no thyromegaly, trachea midline. LYMPH NODES: no cervical or supraclavicular lymphadenopathy. SKIN: [place], warm and dry, no visible lesions, rashes, ulcerations or petechiae. HEART: regular rate and rhythm, S1-S2, no murmur, no rubs or gallops, brisk capillary refill, no edema LUNGS: Diminished breath sounds in all monte, central coarseness, no basilar crackles or wheezing, frequent coughing with deep inspiration CHEST: Symmetrical movement, no accessory muscle use. ABDOMEN: Soft, no distention, no abdominal tenderness, no guarding or peritoneal signs, no organomegaly, no flank or suprapubic tenderness, active bowel tones. EXTREMITIES: no deformities or effusions. NEUROLOGIC: AAO x4, no focal neurologic deficits, cranial nerves II-XII grossly intact, bilateral lower extremity neuropathy hearing grossly normal to speech. PSYCH: calm, restless but patient states he has a chronic movement disorder, can stay still when he focuses on this , cooperative, stable behavior Objective Labs Result Diagrams: 06/09/19 05:00 06/09/19 05:00 Labs: Laboratory Results - last 24 hr 06/08/19 06/08/19 06/08/19 17:58 17:58 17:58 WBC 13.5 H RBC 4.12 L Hgb 10.7 L Hct 32.7 L MCV 79.2 L MCH 26.1 MCHC 32.9 RDW 15.0 H Plt Count 419 H Neut % (Auto) 73.0 Lymph % (Auto) 12.9 L [place] % (Auto) 10.2 Eos % (Auto) 3.1 Baso % (Auto) 0.8 Neut # (Auto) 9800 H Lymph # (Auto) 1700 [place] # (Auto) 1400 H Eos # (Auto) 400 Baso # (Auto) 100 PT 14.9 H INR 1.3 APTT 32 D D-Dimer ABG pH ABG pCO2 ABG pO2 ABG HCO3 ABG Total CO2 ABG O2 Saturation ABG Base Excess FiO2 Sodium Potassium Chloride Carbon Dioxide BUN Creatinine Estimated GFR BUN/Creatinine Ratio Glucose Lactate Calcium Magnesium Total Bilirubin AST ALT Alkaline Phosphatase Total Protein Albumin Globulin Albumin/Globulin Ratio Lipase Procalcitonin 0.12 TSH Thyroxine (T4) Urine Color Urine Appearance Urine pH Ur Specific [place] Urine Protein Urine Glucose (UA) Urine Ketones Urine Occult Blood Urine Nitrate Urine Bilirubin Urine Urobilinogen Ur Leukocyte Esterase Urine RBC Urine WBC Urine Bacteria Ur Culture Indicated? Micro UA Comment Chlamy pneumoniae PCR Adenovirus (PCR) B.parapertussis DNA PCR Coronavirus OC43 (PCR) Coronavirus HKU1 (PCR) Coronavirus 229E (PCR) Coronavirus NL63 (PCR) Human Metapneumovir PCR Influenza A (RT-PCR) Influenza Type A (PCR) Influenza B (RT-PCR) Influenza Type B (PCR) M. pneumoniae (PCR) Parainfluenza 1 (PCR) Parainfluenza 2 (PCR) Parainfluenza 3 (PCR) Parainfluenza 4 (PCR) RSV (PCR) Entero/Rhino (PCR) 06/08/19 06/08/19 06/08/19 17:58 17:58 17:58 WBC RBC Hgb Hct MCV MCH MCHC RDW Plt Count Neut % (Auto) Lymph % (Auto) [place] % (Auto) Eos % (Auto) Baso % (Auto) Neut # (Auto) Lymph # (Auto) [place] # (Auto) Eos # (Auto) Baso # (Auto) PT INR APTT D-Dimer 1277 H ABG pH ABG pCO2 ABG pO2 ABG HCO3 ABG Total CO2 ABG O2 Saturation ABG Base Excess FiO2 Sodium 136 L Potassium 5.5 H Chloride 102 Carbon Dioxide 28 BUN 25 H Creatinine 1.20 Estimated GFR > 60.0 BUN/Creatinine Ratio 20.8 Glucose 118 H Lactate 1.8 Calcium 9.2 Magnesium Total Bilirubin 0.3 AST 24 ALT 15 Alkaline Phosphatase 94 Total Protein 7.8 Albumin 3.7 Globulin 4.1 Albumin/Globulin Ratio 0.9 L Lipase 54 Procalcitonin TSH Thyroxine (T4) Urine Color Urine Appearance Urine pH Ur Specific [place] Urine Protein Urine Glucose (UA) Urine Ketones Urine Occult Blood Urine Nitrate Urine Bilirubin Urine Urobilinogen Ur Leukocyte Esterase Urine RBC Urine WBC Urine Bacteria Ur Culture Indicated? Micro UA Comment Chlamy pneumoniae PCR Adenovirus (PCR) B.parapertussis DNA PCR Coronavirus OC43 (PCR) Coronavirus HKU1 (PCR) Coronavirus 229E (PCR) Coronavirus NL63 (PCR) Human Metapneumovir PCR Influenza A (RT-PCR) Influenza Type A (PCR) Influenza B (RT-PCR) Influenza Type B (PCR) M. pneumoniae (PCR) Parainfluenza 1 (PCR) Parainfluenza 2 (PCR) Parainfluenza 3 (PCR) Parainfluenza 4 (PCR) RSV (PCR) Entero/Rhino (PCR) 06/08/19 06/08/19 06/08/19 17:58 17:58 18:52 WBC RBC Hgb Hct MCV MCH MCHC RDW Plt Count Neut % (Auto) Lymph % (Auto) [place] % (Auto) Eos % (Auto) Baso % (Auto) Neut # (Auto) Lymph # (Auto) [place] # (Auto) Eos # (Auto) Baso # (Auto) PT INR APTT D-Dimer ABG pH 7.42 ABG pCO2 39.6 ABG pO2 53 L ABG HCO3 26 ABG Total CO2 27 ABG O2 Saturation 87 L ABG Base Excess 1.0 FiO2 21 Sodium Potassium Chloride Carbon Dioxide BUN Creatinine Estimated GFR BUN/Creatinine Ratio Glucose Lactate Calcium Magnesium 1.1 L Total Bilirubin AST ALT Alkaline Phosphatase Total Protein Albumin Globulin Albumin/Globulin Ratio Lipase Procalcitonin TSH 0.26 L Thyroxine (T4) 8.10 Urine Color Urine Appearance Urine pH Ur Specific [place] Urine Protein Urine Glucose (UA) Urine Ketones Urine Occult Blood Urine Nitrate Urine Bilirubin Urine Urobilinogen Ur Leukocyte Esterase Urine RBC Urine WBC Urine Bacteria Ur Culture Indicated? Micro UA Comment Chlamy pneumoniae PCR Adenovirus (PCR) B.parapertussis DNA PCR Coronavirus OC43 (PCR) Coronavirus HKU1 (PCR) Coronavirus 229E (PCR) Coronavirus NL63 (PCR) Human Metapneumovir PCR Influenza A (RT-PCR) Influenza Type A (PCR) Influenza B (RT-PCR) Influenza Type B (PCR) M. pneumoniae (PCR) Parainfluenza 1 (PCR) Parainfluenza 2 (PCR) Parainfluenza 3 (PCR) Parainfluenza 4 (PCR) RSV (PCR) Entero/Rhino (PCR) 06/08/19 06/08/19 06/09/19 19:02 19:02 05:00 WBC RBC Hgb Hct MCV MCH MCHC RDW Plt Count Neut % (Auto) Lymph % (Auto) [place] % (Auto) Eos % (Auto) Baso % (Auto) Neut # (Auto) Lymph # (Auto) [place] # (Auto) Eos # (Auto) Baso # (Auto) PT INR APTT D-Dimer ABG pH ABG pCO2 ABG pO2 ABG HCO3 ABG Total CO2 ABG O2 Saturation ABG Base Excess FiO2 Sodium Potassium Chloride Carbon Dioxide BUN Creatinine Estimated GFR BUN/Creatinine Ratio Glucose Lactate Calcium Magnesium Total Bilirubin AST ALT Alkaline Phosphatase Total Protein Albumin Globulin Albumin/Globulin Ratio Lipase Procalcitonin 0.10 TSH Thyroxine (T4) Urine Color Urine Appearance Urine pH Ur Specific [place] Urine Protein Urine Glucose (UA) Urine Ketones Urine Occult Blood Urine Nitrate Urine Bilirubin Urine Urobilinogen Ur Leukocyte Esterase Urine RBC Urine WBC Urine Bacteria Ur Culture Indicated? Micro UA Comment Chlamy pneumoniae PCR Not detected Adenovirus (PCR) Not detected B.parapertussis DNA PCR Not detected Coronavirus OC43 (PCR) Not detected Coronavirus HKU1 (PCR) Not detected Coronavirus 229E (PCR) Not detected Coronavirus NL63 (PCR) Not detected Human Metapneumovir PCR Not detected Influenza A (RT-PCR) Flu a negative Influenza Type A (PCR) Not detected Influenza B (RT-PCR) Flu b negative Influenza Type B (PCR) Not detected M. pneumoniae (PCR) Not detected Parainfluenza 1 (PCR) Not detected Parainfluenza 2 (PCR) Not detected Parainfluenza 3 (PCR) Not detected Parainfluenza 4 (PCR) Not detected RSV (PCR) Not detected Entero/Rhino (PCR) Not detected 06/09/19 06/09/19 06/09/19 05:00 05:00 11:25 WBC 10.9 RBC 4.06 L Hgb 10.8 L Hct 32.5 L MCV 80.1 MCH 26.7 MCHC 33.3 RDW 15.0 H Plt Count 367 Neut % (Auto) 65.2 Lymph % (Auto) 18.5 L [place] % (Auto) 9.6 Eos % (Auto) 3.4 Baso % (Auto) 3.3 H Neut # (Auto) 7100 H Lymph # (Auto) 2000 [place] # (Auto) 1000 H Eos # (Auto) 400 Baso # (Auto) 400 H PT INR APTT D-Dimer ABG pH ABG pCO2 ABG pO2 ABG HCO3 ABG Total CO2 ABG O2 Saturation ABG Base Excess FiO2 Sodium 137 Potassium 4.9 Chloride 108 H Carbon Dioxide 24 BUN 23 H Creatinine 1.00 Estimated GFR > 60.0 BUN/Creatinine Ratio 23.0 H Glucose 77 L Lactate Calcium 8.5 Magnesium Total Bilirubin AST ALT Alkaline Phosphatase Total Protein Albumin Globulin Albumin/Globulin Ratio Lipase Procalcitonin TSH Thyroxine (T4) Urine Color Yellow Urine Appearance Clear Urine pH 5.5 Ur Specific [place] 1.010 Urine Protein Negative Urine Glucose (UA) Negative Urine Ketones Negative Urine Occult Blood Negative Urine Nitrate Negative Urine Bilirubin Negative Urine Urobilinogen 0.2 Ur Leukocyte Esterase Negative Urine RBC None seen Urine WBC None seen Urine Bacteria None seen Ur Culture Indicated? Cult not indicated Micro UA Comment Microscopic normal Chlamy pneumoniae PCR Adenovirus (PCR) B.parapertussis DNA PCR Coronavirus OC43 (PCR) Coronavirus HKU1 (PCR) Coronavirus 229E (PCR) Coronavirus NL63 (PCR) Human Metapneumovir PCR Influenza A (RT-PCR) Influenza Type A (PCR) Influenza B (RT-PCR) Influenza Type B (PCR) M. pneumoniae (PCR) Parainfluenza 1 (PCR) Parainfluenza 2 (PCR) Parainfluenza 3 (PCR) Parainfluenza 4 (PCR) RSV (PCR) Entero/Rhino (PCR) Assessment & Plan Assessment & Plan narrative: This is a 64-year-old male patient who presents with acute on chronic respiratory failure with worsening difficulty breathing over the last 5 days with a his/emphysema, productive cough with yellow sputum. He describes new onset left chest pain, pleuritic in nature with a known history of a right axillary DVT. He is low risk but not no risk for COVID-19 infection per public health department so sample swab is being sent to [facility] for testing. However, most likely etiology remains PE. 1. Acute hypoxic and hypercarbic respiratory failure on chronic hypoxemic and hypercarbic respiratory failure with emphysema, present on admission, active. -Patient describes shortness of breath worsening for months and has had a cough productive for yellow sputum for 1 month. He reports having fevers since receiving pneumonia and flu vaccine beginning of May. -The patient presented with an elevated temperature 100.5?, elevated white count at 13.5 with increased neutrophils, procalcitonin is 0.12, lactic acid is 1.0. Arterial blood gas on admission was pH 7.42, pCO2 of 27, PO2 53, bicarbonate 26, base excess +1, saturation calculated 87% on 21% FiO2. -patient previously treated for a right upper lung abscess at [facility]. -blood cultures pending -started azithromycin 500 mg daily for 3 days and ceftriaxone 2 g IV daily for possible CAP. -once patient afebrile likely can transition him back to oral suppressive therapy with Augmentin -most likely etiology remains PE, patient is on Lovenox currently, but CTA is still pending at this time. This will also give further clarification to other possible etiologies of respiratory failure. -COVID 19 testing sent on 06/09/2019 to [facility], unknown return time currently, but estimated 1-2 days per laboratory dept here. 2. Right upper lobe cavitary lesion, present on admission, active -unchanged in appearance on current chest x-ray. He has previously had negative cultures on bronchoscopy end of April at [facility]. -patient has had productive cough with yellow sputum for 1 month since having been taken off suppressive antibiotics. -sputum culture pending -started azithromycin 500 mg daily for 3 days and ceftriaxone 2 g IV da -will monitor infectious markers. 3. Chronic right axillary DVT, present on admission, active -continuing right upper arm pain, Xarelto discontinued due to hemoptysis previously. -new onset left chest pain pleuritic in character, severe with deep inspiration, positive cough and elevated D-dimer at 1277. -concern for pulmonary embolus, ordered CT angiogram PE protocol however unable to obtain as noted above at this time. -patient has previously tolerated Lovenox and have restarted Lovenox 1 jones gram/kilogram twice daily. -will monitor for complications of bleeding 4. Metastatic adenocarcinoma -chronic right chest pain due to rib metastases -continue patient's oxycodone 10 mg q.4 hours as needed, added IV morphine for breakthrough today and tessalon pearles for cough. - continue Lyrica 50 mg t.i.d. 5. Acquired hypothyroidism, chronic, present on admission, stable. Will continue patient's current home regimen of levothyroxine 150 mcg daily. VTE prophylaxis: SCDs, therapeutic Lovenox. IV fluid: 100 cc/hour normal saline. Diet: High-protein low-sodium. Isolation: Patient is on airborne precautions pending follow-up with [facility] for evaluation of COVID-19 infection. The patient is admitted to the hospital due to the severity of his symptoms, risk of complications and adverse events. The patient is admitted as an inpatient with expected length of stay to be greater than 2 midnights. Quality VTE Deep Vein Thrombosis/Pulmonary Embolism Present on Admission: No
[2019-06-09] MEDS: MORPHINE 2 MG/ML INJ IV ×2 (18:43→22:47)
[2019-06-09] MEDS: BENZONATATE 100 MG CAPSULE PO (18:43)
[2019-06-09] MEDS: CEFTRIAXONE 2 GM/50 ML FROZ.PIGGY IV (18:43)
[2019-06-09] MEDS: AZITHROMYCIN 500 MG in DEXTROSE 5% IN WATER 250 ML IV (20:04)
[2019-06-09] MEDS: ACETAMINOPHEN 325 MG TABLET 975 MG PO (20:24)
[2019-06-09] MEDS: BENZONATATE 100 MG CAPSULE 200 MG PO (21:09)
[2019-06-09] MEDS: ENOXAPARIN 60 MG/0.6 ML SYRINGE SUBCUT (21:09)
[2019-06-10] VITALS (17 sets, daily range): BP systolic 95–122; BP diastolic 54–68; PULSE 60–73; RESP 16–30; TEMP 36.6–37.6; O2SAT 80–100
[2019-06-10] MEDS: OXYCODONE IR 10 MG TABLET PO ×6 (00:33→22:10)
[2019-06-10] MEDS: PANTOPRAZOLE 20 MG TABLET PO (04:59)
[2019-06-10 06:02] LABS: Add Manual Diff / Slide Review NO; Basophils Absolute Auto 100 /uL (0-100); Basophils Percent Auto 1.3 % (0-2); Eosinophils Absolute Auto 400 /uL (0-450); Eosinophils Percent Auto 3.9 % (2-4); Hematocrit 28.2 % (41-53); Hemoglobin 9.4 g/dL (13.5-17.5); Lymphocytes Absolute Auto 1200 /uL (1100-4500); Lymphocytes Percent Auto 12.2 % (25-40); Mean Corpuscular HGB Conc 33.4 % (30-36); Mean Corpuscular Hemoglobin 26.6 PG (26-34); Mean Corpuscular Volume 79.8 fL (80-100); Monocytes Absolute Auto 700 /uL (0-900); Monocytes Percent Auto 7.2 % (3-14); Neutrophils Absolute Auto 7400 /uL (1500-7000); Neutrophils Percent Auto 75.4 % (50-75); Platelet Count 347 X10^3/uL (150-400); Red Blood Cell Count 3.53 X10^6/uL (4.5-5.9); Red Cell Distribution Width 15.2 % (11.6-14.8); White Blood Cell Count 9.8 X10^3/uL (4.5-11.0)
[2019-06-10 06:08] LABS: BUN Creatinine Ratio 17.8 (6-22); Blood Urea Nitrogen 16 mg/dL (9-20); Calcium 8.6 mg/dL (8.4-10.2); Carbon Dioxide 26 mmol/L (22-32); Chloride 110 mmol/L (98-107); Estimated Glomerular Filt Rate > 60.0 mL/min (>60); Glucose 84 mg/dL (80-110); HEMOLYSIS < 15 (0-50); Magnesium 1.7 mg/dL (1.6-2.3); Potassium 4.4 mmol/L (3.4-5.1); Sodium 140 mmol/L (137-145)
[2019-06-10] MEDS: SODIUM CHLORIDE 0.9% 1,000 ML 100 ML IV ×2 (06:11→19:23)
[2019-06-10] MEDS: PREGABALIN 50 MG CAPSULE PO ×3 (09:51→20:42)
[2019-06-10] MEDS: LEVOTHYROXINE 150 MCG TABLET PO (09:51)
[2019-06-10] MEDS: SERTRALINE 50 MG TABLET 75 MG PO (09:52)
[2019-06-10] MEDS: ENOXAPARIN 60 MG/0.6 ML SYRINGE SUBCUT ×2 (09:52→20:42)
[2019-06-10] MEDS: ALBUTEROL/IPRATROPIUM 3 ML AMPUL INH (11:06)
--- NOTE | 2019-06-10 16:02 | PC.NURSE ---
Day Shift- At 1540, Dr. Mejias made aware that at home pt has Oxycodone prn, need to change Scheduled order to prn. Pt had no concerns throughout shift. O2 sats remained 94-95% on 2L NC with this RN's check-ins with pt. On continuous O2 monitoring. Pt has his own Albuterol Inhaler at bedside which was okay by Dr. burnette on 06/08. Pt aware to call for assist if feeling short of breath. RT called fr prn Duoneb treatment per pt request which was done by RT at 1105. Pt remains in negative pressure Isolation awaiting test results.
--- NOTE | 2019-06-10 16:05 | PM.PN.1 ---
Subjective Subjective Date Patient Seen: 06/10/19 Interval history: patient is a 64-year-old male with a history of COPD, history of lung cancer status post chemotherapy, admitted to the hospital for acute hypoxic respiratory failure felt to be due to pneumonia. Patient is being ruled out for coded 19 which is still pending. He continues to be markedly hypoxic. Patient is requiring oxygen and desaturates with coughing. He does have a productive cough. He continues to have low-grade fever. Patient remains on antibiotics. Exam Vital Signs (past 8 hours): - 06/10/19 08:12 06/10/19 08:30 06/10/19 09:30 Temperature 97.8 F Pulse Rate 60 Respiratory Rate 18 Blood Pressure 105/58 L Pulse Oximetry 98 98 95 06/10/19 11:06 06/10/19 11:11 06/10/19 13:40 Temperature 97.8 F Pulse Rate 66 Respiratory Rate 18 Blood Pressure 110/54 L Pulse Oximetry 98 95 95 06/10/19 14:51 06/10/19 15:45 Temperature 97.9 F Pulse Rate 72 Respiratory Rate 20 Blood Pressure 108/59 L Pulse Oximetry 94 94 Oxygen Delivery Method Nasal Cannula Oxygen Flow Rate 2 Narrative Exam Narrative: Ill-appearing male HEENT: Normocephalic atraumatic, extraocular muscles are intact, lungs: Decreased breath sounds with scattered rhonchi bilaterally cardiac exam: Regular rate and rhythm normal S1-S2 abdomen: Soft nontender nondistended lower extremities: No edema Objective Labs Result Diagrams: 06/10/19 05:01 06/10/19 05:01 Labs: Laboratory Results - last 24 hr 06/10/19 06/10/19 05:01 05:01 WBC 9.8 RBC 3.53 L Hgb 9.4 L Hct 28.2 L MCV 79.8 L MCH 26.6 MCHC 33.4 RDW 15.2 H Plt Count 347 Neut % (Auto) 75.4 H Lymph % (Auto) 12.2 L [place] % (Auto) 7.2 Eos % (Auto) 3.9 Baso % (Auto) 1.3 Neut # (Auto) 7400 H Lymph # (Auto) 1200 [place] # (Auto) 700 Eos # (Auto) 400 Baso # (Auto) 100 Sodium 140 Potassium 4.4 Chloride 110 H Carbon Dioxide 26 BUN 16 Creatinine 0.90 Estimated GFR > 60.0 BUN/Creatinine Ratio 17.8 Glucose 84 Calcium 8.6 Magnesium 1.7 Assessment & Plan Assessment & Plan narrative: Assessment & Plan narrative: This is a 64-year-old male patient who presents with acute on chronic respiratory failure with worsening difficulty breathing over the last 5 days with a his/emphysema, productive cough with yellow sputum. He describes new onset left chest pain, pleuritic in nature with a known history of a right axillary DVT. He is low risk but not no risk for COVID-19 infection per public health department so sample swab [facility] being [facility] to [facility] for testing. However, most likely etiology remains PE. 1. Acute hypoxic and hypercarbic respiratory failure on chronic hypoxemic and hypercarbic respiratory failure with emphysema, present on admission, active. -Patient describes shortness of breath worsening for months and has had a cough productive for yellow sputum for 1 month. He reports having fevers since receiving pneumonia and flu vaccine beginning of May. -The patient presented with an elevated temperature 100.5?, elevated white count at 13.5 with increased neutrophils, procalcitonin is 0.12, lactic acid is 1.0. Arterial blood gas on admission was pH 7.42, pCO2 of 27, PO2 53, bicarbonate 26, base excess +1, saturation calculated 87% on 21% FiO2. -patient previously treated for a right upper lung abscess at [place]. -blood cultures pending -started azithromycin 500 mg daily for 3 days and ceftriaxone 2 g IV daily for possible CAP. -once patient afebrile likely can transition him back to oral suppressive therapy with Augmentin -most likely etiology remains PE, patient is on Lovenox currently, but CTA is still pending at this time. This will also give further clarification to other possible etiologies of respiratory failure. -COVID 19 testing [facility]09/2019 [facility], unknown return time currently, but estimated 1-2 days per laboratory dept here. discussed with last still awaiting results of covered 19. patient will remain in reverse isolation, and will continue antibiotics given his persistent hypoxia 2. Right upper lobe cavitary lesion, present on admission, active -unchanged in appearance on current chest x-ray. He has previously had negative cultures on bronchoscopy end of April at [place]. -patient has had productive cough with yellow sputum for 1 month since having been taken off suppressive antibiotics. -sputum culture pending -started azithromycin 500 mg daily for 3 days and ceftriaxone 2 g IV da -will monitor infectious markers. 3. Chronic right axillary DVT, present on admission, active -continuing right upper arm pain, Xarelto discontinued due to hemoptysis previously. -new onset left chest pain pleuritic in character, severe with deep inspiration, positive cough and elevated D-dimer at 1277. -concern for pulmonary embolus, ordered CT angiogram PE protocol however unable to obtain as noted above at this time. -patient has previously tolerated Lovenox and have restarted Lovenox 1 milligram/kilogram twice daily. -will monitor for complications of bleeding 4. Metastatic adenocarcinoma -chronic right chest pain due to rib metastases -continue patient's oxycodone 10 mg q.4 hours as needed, added IV morphine for breakthrough today and tessalon pearles for cough. - continue Lyrica 50 mg t.i.d. 5. Acquired hypothyroidism, chronic, present on admission, stable. Will continue patient's current home regimen of levothyroxine 150 mcg daily. VTE prophylaxis: SCDs, therapeutic Lovenox. Quality VTE Deep Vein Thrombosis/Pulmonary Embolism Present on Admission: No
[2019-06-10] MEDS: BENZONATATE 100 MG CAPSULE 200 MG PO (17:45)
[2019-06-10] MEDS: CEFTRIAXONE 2 GM/50 ML FROZ.PIGGY IV (19:23)
[2019-06-10] MEDS: AZITHROMYCIN 500 MG in DEXTROSE 5% IN WATER 250 ML IV (20:39)
--- NOTE | 2019-06-10 23:53 | PC.NURSE ---
Assumed care of pt at 1500. Pt resting in bed during hand-off. Airborne isolation remains in effect. Awaiting COVID 19 results. 2L NC sats 94%, MD in for rounding and states pt desats with coughing and increased O2 to 6L. This writer producer able to tritrate back down to 2L. Shortly after pt had coughing fit, became hypoxic, sats low 80's. O2 increased to 6L. Scant sero-sang drainage noted from nares. R.T. applied hi-flow NC at 5L humidified O2. Calling appropriately for needs. Repositioning in bed independently for pressure injury prevention.
[2019-06-11] VITALS (17 sets, daily range): BP systolic 111–133; BP diastolic 53–67; PULSE 60–98; RESP 18–28; TEMP 36.3–37.2; O2SAT 90–97
--- NOTE | 2019-06-11 04:28 | PC.NURSE ---
Per coordinator, rule out Covid-19 is now droplet precautions.
[2019-06-11] MEDS: OXYCODONE IR 10 MG TABLET PO ×4 (05:38→23:37)
[2019-06-11] MEDS: PANTOPRAZOLE 20 MG TABLET PO (05:39)
[2019-06-11] MEDS: SODIUM CHLORIDE 0.9% 1,000 ML 100 ML IV ×2 (05:40→18:19)
[2019-06-11 06:09] LABS: Add Manual Diff / Slide Review NO; Basophils Absolute Auto 100 /uL (0-100); Basophils Percent Auto 1.5 % (0-2); Eosinophils Absolute Auto 300 /uL (0-450); Eosinophils Percent Auto 3.5 % (2-4); Hematocrit 30.1 % (41-53); Hemoglobin 9.7 g/dL (13.5-17.5); Lymphocytes Absolute Auto 1200 /uL (1100-4500); Lymphocytes Percent Auto 13.2 % (25-40); Mean Corpuscular HGB Conc 32.3 % (30-36); Mean Corpuscular Volume 80.4 fL (80-100); Monocytes Absolute Auto 700 /uL (0-900); Monocytes Percent Auto 8.2 % (3-14); Neutrophils Absolute Auto 6500 /uL (1500-7000); Neutrophils Percent Auto 73.6 % (50-75); Platelet Count 355 X10^3/uL (150-400); Red Blood Cell Count 3.75 X10^6/uL (4.5-5.9); Red Cell Distribution Width 15.4 % (11.6-14.8); White Blood Cell Count 8.8 X10^3/uL (4.5-11.0)
[2019-06-11 06:12] LABS: Magnesium 1.5 mg/dL (1.6-2.3)
[2019-06-11 06:13] LABS: BUN Creatinine Ratio 11.3 (6-22); Blood Urea Nitrogen 9 mg/dL (9-20); Calcium 8.3 mg/dL (8.4-10.2); Carbon Dioxide 26 mmol/L (22-32); Chloride 108 mmol/L (98-107); Estimated Glomerular Filt Rate > 60.0 mL/min (>60); Glucose 87 mg/dL (80-110); HEMOLYSIS < 15 (0-50); Potassium 4.1 mmol/L (3.4-5.1); Sodium 138 mmol/L (137-145)
[2019-06-11] MEDS: BENZONATATE 100 MG CAPSULE 200 MG PO ×2 (06:28→21:28)
[2019-06-11] MEDS: SERTRALINE 50 MG TABLET 75 MG PO (08:37)
[2019-06-11] MEDS: DOCUSATE 100 MG CAPSULE PO (08:38)
[2019-06-11] MEDS: LIDOCAINE PATCH 1 EACH ADH..PATCH TOP (08:38)
[2019-06-11] MEDS: PREGABALIN 50 MG CAPSULE PO ×3 (08:38→21:29)
[2019-06-11] MEDS: LEVOTHYROXINE 150 MCG TABLET PO (08:38)
[2019-06-11] MEDS: ALBUTEROL 2.5 MG/3 ML NEB (ADULT) INH ×2 (08:39→08:45)
[2019-06-11] MEDS: ENOXAPARIN 60 MG/0.6 ML SYRINGE SUBCUT ×2 (08:39→21:28)
[2019-06-11] MEDS: MAGNESIUM SULFATE 2 GM/50 ML PIGGYBACK IV (11:05)
--- NOTE | 2019-06-11 13:54 | PC.NURSE ---
Patient has no contacts that would be able to retrieve his advance directive.
[2019-06-11] MEDS: SENNOSIDES 8.6 MG TABLET 17.2 MG PO (13:58)
--- NOTE | 2019-06-11 15:36 | CM.DANOTE ---
Per MD and RN during room rounding, pt currently being treated for pneumonia and is still on COVID-19 precautions and test results should be back by 06/13/19. SW called pt in room via phone as he is currently on COVID-19 precautions and explained role and pt confirms that he lives at home in [place] with his ex- and informal Caregiver/friend Lakisha and is mostly independent with ADL's at baseline. He relies on others for transportation and denies any hx of HH or SNF. Pt states he is feeling a little better and preference is to d/c home with his roommates when medically stable. Pt does not anticipate any SW needs pending COVID-19 test results although pt is still feeling below his baseline. PT/OT has not been ordered yet and may be helpful to determine if any d/c planning needs identified and r/o HH. Plan: SW to follow closely for possible ordering PT to determine if pt will be safe for return home with roommates when medically stable and r/o HH after COVID-19 results return on maybe Wednesday. JOSH Blank Discharge Planning/Care Management Advanced directive, confirm from FAMILY Start: 06/09/19 00:03 Freq: Q24H Status: Active Protocol: Document 06/11/19 10:00 CLARA (Rec: 06/11/19 13:54 CLARA [id number]) Advance Directive, confirm on record Time 13:53 Person contacted Patient Copy received No CM Discharge Assessment Start: 06/09/19 15:10 Freq: Status: Active Protocol: Document 06/09/19 15:10 ELEAZAR (Rec: 06/09/19 15:23 [id number]) Discharge Planning Assessment Assigned Hog Pusher JOSH Mcghee DPOA/Assigned Designee Name Tomasa Davila, spouse Contact Information [phone] Advance Directives? Yes: POLST Advance Directives on File Yes: dated August 27: CPR Full Treatment/Medical Intervenitons History Provided By Medical Record Prior Living Arrangements House Household Members other Independent with ADL's Yes: H/o Metastatic adenocarcinoma Is patient alert and oriented? Yes Comment 2 canes and 4ww prn Barriers to Discharge Yes Comment Reviewed chart. Pt presents w/ SOB and was admitted to the hospital with droplet precautions for acute hypoxic respiratory failure, hypokalemia. COVID-19 r/o Pt lives at home w/family, has peg tube, h/o Metastatic adenocarcinoma. nursing notes indicate pt has developed involuntary torso and UE movements, Dr Ham made aware D/t pt's droplet precaution/ COVID-19 r/o, and no immediate need from this MOTHER TESTER for DC planning, stayed out of pt's room today, will plan to assess further as soon as is appropriate. Discharge Plan Home Transportation Arrangement family Additional Comment Pending further assessment of DC needs Review Status In Process Document 06/11/19 15:35 BF (Rec: 06/11/19 15:36 BF [id number]) Discharge Planning Assessment Assigned Hog Pusher JOSH Mcghee DPOA/Assigned Designee Name Tomasa Davila, spouse Contact Information [phone] Advance Directives? Yes: POLST Advance Directives on File Yes: dated August 27: CPR Full Treatment/Medical Intervenitons History Provided By Patient,Medical Record Has Patient been admitted in last 30 No days? Prior Living Arrangements House Household Members caregiver,other Comment Lives with exwife and caregiver Lakisha Type of transporation used prior to Relies on Others admit Independent with ADL's Yes: H/o Metastatic adenocarcinoma Is patient alert and oriented? Yes Caregiver for Another No Comment 2 canes and 4ww prn Barriers to Discharge Yes Comment Reviewed chart. Pt presents w/ SOB and was admitted to the hospital with droplet precautions for acute hypoxic respiratory failure, hypokalemia. COVID-19 r/o Pt lives at home w/family, has peg tube, h/o Metastatic adenocarcinoma. nursing notes indicate pt has developed involuntary torso and UE movements, Dr Ham made aware D/t pt's droplet precaution/ COVID-19 r/o, and no immediate need from this MOTHER TESTER for DC planning, stayed out of pt's room today, will plan to assess further as soon as is appropriate. Discharge Plan Home Transportation Arrangement family Additional Comment Pending further assessment of DC needs Review Status In Process
--- NOTE | 2019-06-11 16:25 | PC.NURSE ---
Day Shift- O2 requirements decreased from 7L HF NC with humidification to 4L, O2 sat 93%. Decreased again to 2L HFNC, O2 sat 93%. Per RT okay to keep on HFNC tubing at 2L. Continuous O2 monitoring. Pt has expiratory wheeze to bilateral anterior upper airway and expiratory wheezing with some coarseness to posterior lung monte. Pt has small amount of thin yellow sputum production. During Dr rounds at 0950, Dr. Mejias made aware of this NR request for additional bowel medications as pt c/o mild bloating and last BM was on 06/09, hard stool. PRN Docusate and Senna given this shift, pt declined having prn Suppository. Also pt's Magnesium lab value was 1.5, Mg 2gm replaced per order. bed alarm on throughout shift, pt uses call light for assist. Pt in Droplet precautions.
[2019-06-11] MEDS: CEFTRIAXONE 2 GM/50 ML FROZ.PIGGY IV (18:18)
--- NOTE | 2019-06-11 19:02 | PM.PN.1 ---
Subjective Subjective Date Patient Seen: 06/11/19 Time Patient Seen: 16:30 Interval history: Patient states he is feeling slightly better but continues to have fatigue. He does have exertional shortness of breath worsened with speaking. Exam Vital Signs (past 8 hours): - 06/11/19 11:03 06/11/19 12:21 06/11/19 15:40 Temperature 98.3 F 97.4 F L Pulse Rate 74 92 H Respiratory Rate 22 20 Blood Pressure 116/56 L 115/65 Pulse Oximetry 94 96 92 Oxygen Delivery Method High Flow Nasal Cannula,Humidification Oxygen Flow Rate 2 Narrative Exam Narrative: Gen: Alert, oriented, very cachectic 64 y.o. male, appears older than stated age HEENT: normocephalic, atraumatic, conjunctiva clear, sclera non-icteric, oral mucosa pink and moist Neck: supple, full ROM Resp: Lungs with wheezing and rales bilaterally, became quite labored with activity desatting down into the her mid 70s to low 80s, he relieved a little bit of a shortness of breath with the use of an albuterol inhaler at the bedside where his oxygenation improved up into the mid 80s. CV: RRR, no murmur or rubs Abd: soft, non-tender, normoactive BTs Skin: Left-sided chest port appears to be intact and without erythema, no lesions or rashes, dry and intact Neuro: Alert and oriented X 4 w/no focal deficits Extremities: moves all 4 extremities, is ambulatory, negative Josefa?s sign Psyche: normal mood and affect. Objective Labs Result Diagrams: 06/11/19 05:44 06/11/19 05:44 Labs: Laboratory Results - last 24 hr 06/11/19 06/11/19 06/11/19 05:44 05:44 05:44 WBC 8.8 RBC 3.75 L Hgb 9.7 L Hct 30.1 L MCV 80.4 MCH 26.0 MCHC 32.3 RDW 15.4 H Plt Count 355 Neut % (Auto) 73.6 Lymph % (Auto) 13.2 L [place] % (Auto) 8.2 Eos % (Auto) 3.5 Baso % (Auto) 1.5 Neut # (Auto) 6500 Lymph # (Auto) 1200 [place] # (Auto) 700 Eos # (Auto) 300 Baso # (Auto) 100 Sodium 138 Potassium 4.1 Chloride 108 H Carbon Dioxide 26 BUN 9 Creatinine 0.80 Estimated GFR > 60.0 BUN/Creatinine Ratio 11.3 Glucose 87 Calcium 8.3 L Magnesium 1.5 L Assessment & Plan Assessment & Plan narrative: This is a 64-year-old male patient who presented with acute on chronic respiratory failure with worsening difficulty breathing over the last 5 days with emphysema, productive cough with yellow sputum. He describes new onset left chest pain, pleuritic in nature with a known history of a right axillary DVT. He is low risk but not no risk for COVID-19 infection per public health department so [facility]. However, most likely etiology remains PE. 1. Acute hypoxic and hypercarbic respiratory failure on chronic hypoxemic and hypercarbic respiratory failure with emphysema, present on admission, active. -Patient describes shortness of breath worsening for months and has had a cough productive for yellow sputum for 1 month. He reports having fevers since receiving pneumonia and flu vaccine beginning of May. -sputum culture indicates ?mold?, question pleural fungal ball. Appears that discussion with pulmonology and Infectious Disease would be appropriate at this point for further evaluation and treatment. -The patient presented with an elevated temperature 100.5?, elevated white count at 13.5 with increased neutrophils, procalcitonin is 0.12, lactic acid is 1.0. Arterial blood gas on admission was pH 7.42, pCO2 of 27, PO2 53, bicarbonate 26, base excess +1, saturation calculated 87% on 21% FiO2. -patient previously treated for a right upper lung abscess at [facility] [facility]. -blood cultures pending -started azithromycin 500 mg daily for 3 days and ceftriaxone 2 g IV daily for possible CAP. -once patient afebrile likely can transition him back to oral suppressive therapy with Augmentin -most likely etiology remains PE, patient is on Lovenox currently, but CTA is still pending at this time. This will also give further clarification to other possible etiologies of respiratory failure. -COVID 19 testing sent on 06/09/2019 to [facility], unknown return time currently, but estimated 1-2 days per laboratory dept here, still pending. discussed with last still awaiting results of covered 19. patient will remain in reverse isolation, and will continue antibiotics given his persistent hypoxia 2. Right upper lobe cavitary lesion, present on admission, active -unchanged in appearance on current chest x-ray. He has previously had negative cultures on bronchoscopy end of April at [facility]. -patient has had productive cough with yellow sputum for 1 month since having been taken off suppressive antibiotics. -started azithromycin 500 mg daily for 3 days and ceftriaxone 2 g IV da -will monitor infectious markers. -see 1. Regarding sputum culture findings 3. Chronic right axillary DVT, present on admission, active -continuing right upper arm pain, Xarelto discontinued due to hemoptysis previously. -new onset left chest pain pleuritic in character, severe with deep inspiration, positive cough and elevated D-dimer at 1277. -concern for pulmonary embolus, ordered CT angiogram PE protocol however unable to obtain as noted above at this time. -patient has previously tolerated Lovenox and have restarted Lovenox 1 milligram/kilogram twice daily. -will monitor for complications of bleeding 4. Metastatic adenocarcinoma -chronic right chest pain due to rib metastases -continue patient's oxycodone 10 mg q.4 hours as needed, added IV morphine for breakthrough today and tessalon pearles for cough. - continue Lyrica 50 mg t.i.d. 5. Acquired hypothyroidism, chronic, present on admission, stable. Will continue patient's current home regimen of levothyroxine 150 mcg daily. VTE prophylaxis: SCDs, therapeutic Lovenox. Quality VTE Deep Vein Thrombosis/Pulmonary Embolism Present on Admission: No
[2019-06-11] MEDS: ALBUTEROL/IPRATROPIUM 3 ML AMPUL INH (19:51)
[2019-06-11] MEDS: ACETAMINOPHEN 325 MG TABLET 975 MG PO (21:28)
--- NOTE | 2019-06-11 21:57 | PC.NURSE ---
Assumed care of pt at 1500. Pt resting in bed. Denies pain. 2L HFNC humidified. Denies sob or difficulty breathing. R.T. called for neb treatment at approx 1920. At 2100 pt reports feeling sob on 2L HFNC, sats 90%. increased to 3L sats 94%. Reports feeling better. Droplet isolation remains in effect.
[2019-06-12] VITALS (10 sets, daily range): BP systolic 118–146; BP diastolic 65–78; PULSE 71–82; RESP 18–24; TEMP 36.4–37.4; O2SAT 91–96
[2019-06-12] MEDS: ALBUTEROL/IPRATROPIUM 3 ML AMPUL INH ×4 (03:50→19:59)
--- NOTE | 2019-06-12 04:09 | PC.NURSE ---
Entered the patients room at 0355 and the patient was short of breath, using accessory muscles and continuously coughing. Oxygen saturation ranging in the low 80's. Respiratory therapist, Nicholas called at 0356. Respiratory therapist came to assess the patient and give a breathing treatment (see MAR). Patient was given a breathing treatment and placed on humidified high flow oxygen.
[2019-06-12] MEDS: SODIUM CHLORIDE 0.9% 1,000 ML 100 ML IV ×2 (04:37→19:05)
[2019-06-12] MEDS: OXYCODONE IR 10 MG TABLET PO ×3 (04:38→13:27)
[2019-06-12 06:02] LABS: Add Manual Diff / Slide Review NO; Basophils Absolute Auto 100 /uL (0-100); Eosinophils Absolute Auto 300 /uL (0-450); Hematocrit 28.8 % (41-53); Hemoglobin 9.6 g/dL (13.5-17.5); Lymphocytes Absolute Auto 700 /uL (1100-4500); Lymphocytes Percent Auto 8.4 % (25-40); Mean Corpuscular HGB Conc 33.5 % (30-36); Mean Corpuscular Hemoglobin 26.5 PG (26-34); Mean Corpuscular Volume 79.2 fL (80-100); Monocytes Absolute Auto 700 /uL (0-900); Monocytes Percent Auto 7.9 % (3-14); Neutrophils Absolute Auto 7100 /uL (1500-7000); Neutrophils Percent Auto 79.7 % (50-75); Platelet Count 365 X10^3/uL (150-400); Red Blood Cell Count 3.63 X10^6/uL (4.5-5.9); Red Cell Distribution Width 15.3 % (11.6-14.8); White Blood Cell Count 8.9 X10^3/uL (4.5-11.0)
[2019-06-12 06:04] LABS: BUN Creatinine Ratio 8.8 (6-22); Blood Urea Nitrogen 7 mg/dL (9-20); Calcium 8.2 mg/dL (8.4-10.2); Carbon Dioxide 24 mmol/L (22-32); Chloride 110 mmol/L (98-107); Estimated Glomerular Filt Rate > 60.0 mL/min (>60); Glucose 107 mg/dL (80-110); HEMOLYSIS < 15 (0-50); Magnesium 1.7 mg/dL (1.6-2.3); Potassium 3.7 mmol/L (3.4-5.1); Sodium 140 mmol/L (137-145)
[2019-06-12] MEDS: PANTOPRAZOLE 20 MG TABLET PO (06:11)
[2019-06-12] MEDS: LEVOTHYROXINE 150 MCG TABLET PO (06:11)
[2019-06-12] MEDS: SERTRALINE 50 MG TABLET 75 MG PO (09:10)
[2019-06-12] MEDS: PREGABALIN 50 MG CAPSULE PO ×3 (09:10→20:26)
[2019-06-12] MEDS: ENOXAPARIN 60 MG/0.6 ML SYRINGE SUBCUT ×2 (09:10→20:26)
--- NOTE | 2019-06-12 13:31 | PC.NURSE ---
Patient A/Ox3, lung sounds tight and wheezing on expiration and inspiration. RT call for treatment at 0900 when patient became SOB on HFNC 45L. Tx given, patient reports improvement, RR decrease, notable decrease in WOB. RT changed settings of HFNC to 35L 30%O2. Patient tolerating well. 1330: PRN pain medication administered. Patient currently at 94%, reports increase in cough. Administering PRN Benzonatate at this time. Patient producing moderate amount of green/yellow phlegm with productive coughing.
[2019-06-12] MEDS: BENZONATATE 100 MG CAPSULE 200 MG PO (13:42)
[2019-06-12] MEDS: LIDOCAINE PATCH 1 EACH ADH..PATCH TOP (14:47)
--- NOTE | 2019-06-12 18:56 | PM.DS.1 ---
History of Present Illness History of Present Illness Date Patient Seen: 06/12/19 Chief complaint: chest pain, cough - productive, hx cancer of lung Narrative: chest pain, cough - productive, hx cancer of lung Narrative: Mr. Yash Davila is a 64-year-old male with history significant for COPD with right upper lobe cavitation, history of lung cancer status post chemotherapy, DVT right upper extremity no longer on anticoagulation, chronic right chest and back pain, peripheral neuropathy, GERD, hypothyroidism and depression who presents to the ER with shortness of breath. The patient states he has had shortness of breath for months that has been progressive and became worse 5 days ago with new onset of left chest wall pain radiating through to the back with a history of unknown right upper extremity DVT. Patient previously was on anticoagulation with Xarelto That was discontinued due to hemoptysis. Prior to Xarelto the patient was treated Lovenox without complication. The patient has extensive history of COPD with cavitation of the right upper lung and describes difficulty walking 20-30 feet. He has had a productive cough for yellow sputum that he said is also been persistent for months. In regard to his history lung cancer he was treated with nivolimb from 11/2015 through 02/22/2018. The treatment was discontinued related to concerns for pneumonitis. Dr. Young currently follows the patient for Oncology and Dr. Dutton for pulmonology. The patient describes having fevers off and on with associated body aches and skin hypersensitivity. He denies headaches or dizziness, no nasal congestion or sore throat. He has chronic right-sided chest pain predominantly in back and new onset left chest pain that is pleuritic in character making it difficult a copy breath. He denies palpitations. His shortness of breath is chronic and progressive as above. He denies abdominal pain, nausea vomiting, diarrhea or constipation. Denies difficulty urinating. He has residual neuropathy following his chemotherapy treatments. Upon arrival to the ER the patient has temperature 100.5, heart rate of 101, blood pressure 151/69, respirations 24 saturating 89% on room air. His chest x-ray shows chronic right upper lobe cavitary lesion with left Shana plaquing, chronic coarse interstitial lung markings, left MediPort, no significant changes from prior imaging. On anterior blood gas is a pH of 7.42, PO2 of 53, pCO2 27, bicarb 26 and a base 7 assess of +1 on 21% FiO2. On laboratory analysis he has a white count of 13.5 with an increase in neutrophil count, hemoglobin of 10.7, hematocrit 32.7, platelets of 419. On coagulation he has a PT of 14.9, INR of 1.3, PTT of 32. Has an elevated D-dimer of 1277. On chemistries he has an elevated potassium 5.5, BUN of 25 and creatinine 1.2, his nonfasting glucose is 118. His liver function tests are within normal limits with a albumin of 3.7. His lactic acid 1.8 and procalcitonin of 0.12. The patient was treated under sepsis guidelines in the emergency depart receiving sepsis saline bolus of 30 cc/kilos started on azithromycin and ceftriaxone. Received Toradol for pain. The patient has met screening triggers for COVID-19 and the pelvic out department has been contacted. Samples are obtained on the patient is in the ER with follow-up by [facility] in the morning. The patient is admitted to the hospital with droplet precautions for acute hypoxic respiratory failure, hypokalemia. Discharge Providers Provider Date of admission: 06/08/19 20:23 Discharge Date: 06/12/19 Consults: 06/08/19 20:39 Consult to Dietitian, Adult Routine Comment: Reason For Exam: malnurished, BMI 19.1 06/09/19 00:02 Consult to Respiratory Therapy Evaluate & Treat Comment: Emphysema, productive cough, yeallow sputum Physician Instructions: Evaluate and treat Discharge provider: Ema Mejias MD Summary Hospital Course Discharge Diagnosis: 1. Acute respiratory failure 2. 2. Probable pulmonary emboli 3. COPD 4. Pneumonia 5. History of lung cancer 6. Multi on sputum 7. History of upper extremity DVT Hospital Course: Patient was admitted to the hospital for acute shortness of breath and acute respiratory failure. His D-dimer was markedly elevated and there was concern for possible PE. Unfortunately or CT showed machine was down. Patient was empirically treated with Lovenox for presumed PE. In addition he was given IV antibiotics. The patient continued to be markedly hypoxic. He required high-flow oxygen at 35%. Patient had a sputum culture which grew mold. The identification of the sputum was unknown. As the patient continued to have progressive shortness of breath, mold that could not be identified, worsening pulmonary status recommendations were made to transfer the patient to a higher level of care for both pulmonary and infectious disease consultation. This was discussed with the patient who agreed. Arrangements were made for him to be transferred to [facility] under the care of the hospitalist Dr. Williamson on the for pulmonary and infectious disease consultation Status at Discharge Cognitive/behavioral status at discharge: oriented Functional status at discharge: independent ambulation Overall status at discharge: patient is not back to baseline Time Spent with Patient Time spent: Less than 30 minutes Exam Vital Signs (past 8 hours): - 06/12/19 12:15 06/12/19 14:54 06/12/19 15:30 Temperature 99.3 F 98.4 F Pulse Rate 73 71 82 Respiratory Rate 18 24 18 Blood Pressure 128/68 146/78 H Pulse Oximetry 94 91 Fraction of Inspired Oxygen 30 Oxygen Delivery Method Heated High Flow Oxygen Flow Rate 30 Narrative Exam Narrative: Ill-appearing male lying in bed Lungs: Decreased breath sounds with scattered rhonchi bilaterally Cardiac exam: Regular rate and rhythm normal S1-S2 Abdomen: Soft nontender nondistended Extremities: No edema Skin: Multiple tattoos on his back and forearms Objective Labs Result Diagrams: 06/12/19 05:07 06/12/19 05:07 Labs: Laboratory Results - last 24 hr 06/08/19 06/12/19 06/12/19 21:25 05:07 05:07 WBC 8.9 RBC 3.63 L Hgb 9.6 L Hct 28.8 L MCV 79.2 L MCH 26.5 MCHC 33.5 RDW 15.3 H Plt Count 365 Neut % (Auto) 79.7 H Lymph % (Auto) 8.4 L [place] % (Auto) 7.9 Eos % (Auto) 3.0 Baso % (Auto) 1.0 Neut # (Auto) 7100 H Lymph # (Auto) 700 L [place] # (Auto) 700 Eos # (Auto) 300 Baso # (Auto) 100 Sodium 140 Potassium 3.7 Chloride 110 H Carbon Dioxide 24 BUN 7 L Creatinine 0.80 Estimated GFR > 60.0 BUN/Creatinine Ratio 8.8 Glucose 107 Calcium 8.2 L Magnesium 1.7 Ref Test (Refrig) Discharge Plan Discharge Plan Patient Disposition: [facility] Other facility: [facility] Under care of provider: Dr. Choa Discharge comment: Higher Level of Care. Patient growing Mold on Sputum. Needs Infectious Disease Consultation and Bronchoscopy Discharge orders & Medications Prescriptions: No Action sertraline [Zoloft] 50 mg Tablet 75 mg PO DAILY RF: 0 levothyroxine 150 mcg Tablet 150 mcg PO DAILY Qty: 90 RF: 0 pregabalin [Lyrica] 50 mg Capsule 50 mg PO TID Qty: 90 RF: 1 tramadol 50 mg Tablet 50 mg PO BID PRN (Reason: pain) Qty: 60 RF: 0 oxycodone 10 mg Tablet 10 mg PO Q4H PRN (Reason: pain) Qty: 180 RF: 0 albuterol sulfate [ProAir HFA] 90 MCG/PUFF HFA aerosol inhaler 1 puff INH Q6H RF: 0 ipratropium-albuterol 0.5 mg-3 mg(2.5 mg base)/3 mL Solution For Nebulization 3 ml INH Q4HR PRN (Reason: sob/wheezing) Qty: 40 RF: 0 amoxicillin-pot clavulanate [Augmentin] 875-125 mg Tablet 1 tab PO DAILY RF: 0 Diet/Activity/Treatments Diet: Diet as Tolerated Liquid consistency: Normal/Thin Food texture: Regular Oxygen: 35% heated High Flow Quality VTE Deep Vein Thrombosis/Pulmonary Embolism Present on Admission: No
[2019-06-12] MEDS: CEFTRIAXONE 2 GM/50 ML FROZ.PIGGY IV (19:04)
--- NOTE | 2019-06-12 23:50 | PC.NURSE ---
Patient and persoal belongings transferred to [id number] via ambulance. Patient in no acute distress.
== END 2019-06-12 23:15 | disposition short-term general hospital (02) | DRG 133 ==
LOC: ED 18:04 → AC 23:02
PROVIDERS: Emergency Medicine; Internal Medicine; Admitting Provider Nurse Practitioner Adult Health; Emergency Provider Emergency Medicine; Referring Provider Emergency Medicine; Visit Provider Nurse Practitioner Adult Health
DX: J96.21 Acute and chronic respiratory failure with hypoxia (principal); J96.22 Acute and chronic respiratory failure with hypercapnia; J18.9 Pneumonia, unspecified organism; I26.99 Other pulmonary embolism without acute cor pulmonale; I82.621 Acute embolism and thrombosis of deep veins of right upper extremity; C79.51 Secondary malignant neoplasm of bone; E44.0 Moderate protein-calorie malnutrition; J44.0 Chronic obstructive pulmonary disease with (acute) lower respiratory infection; Z68.1 Body mass index [BMI] 19.9 or less, adult; K21.9 Gastro-esophageal reflux disease without esophagitis; E03.9 Hypothyroidism, unspecified; F32.9 Major depressive disorder, single episode, unspecified; F17.210 Nicotine dependence, cigarettes, uncomplicated; Z85.118 Personal history of other malignant neoplasm of bronchus and lung
CPT/HCPCS: 36415; 36600; 71045; 80048; 80053; 81001; 82805; 83605; 83690; 83735; 84145; 84436; 84443; 85025; 85379; 85610; 85730; 87040; 87070; 87205; 87502; 87633; 93005; 93010; 94640; 94760; 94762; 96361; 96365; 96366; 96367; 96375; 99284; 99291; 99406; J0696; J1650; J1885; J2270; J7613

== ENCOUNTER → 2019-08-22 09:51 | Outpatient (CLI) | payer OTHER, MEDICAID, SELFPAY ==
[2019-06-08 20:24] VITALS: BMI 18.6
--- NOTE | 2019-08-22 09:53 | DI.CT.S_ITS ---
PROCEDURE: CT CHEST W CON INDICATIONS: LUNG CANCER, UPPER BACK PAIN TECHNIQUE: After the administration of intravenous contrast, 5 mm thick sections acquired from the pulmonary apices to the posterior costophrenic angles. 1 mm axial lung, 5 mm thick coronal and sagittal reformats and 7 mm axial MIP were acquired. For radiation dose reduction, the following was used: automated exposure control, adjustment of mA and/or kV according to patient size. COMPARISON: [facility], CT, CT ANGIO CHEST PE, 06/13/2019, 8:52. [facility], CT, CT ANGIO CHEST PE PROTOCOL, 05/06/2019, 5:13. [facility], CT, CT ANGIO CHEST PE PROTOCOL, 04/25/2019, 4:18. [facility], CT, CT CHEST W CON, 11/21/2018, 13:53. [facility], CT, CT CHEST WITH CONTRAST, 07/07/2018, 12:54. FINDINGS: Image quality: Excellent. Lungs and pleura: Large cavitary mass in the apex of the right upper lobe with internal air fluid levels not significantly changed in size or contour compared to 06/13/2019. No new lung masses are identified. No acute air space opacities. No pleural effusions or pneumothorax. Mild narrowing of the bilateral mainstem bronchi. A high-grade narrowing of the right upper lobe bronchus. Moderate narrowing of the bronchus intermedius. Mediastinum: Heart size is normal. Atherosclerotic calcifications noted in the aorta and coronary vasculature. No pericardial effusion. Subcarinal mediastinal lymphadenopathy has decreased in size measuring 1.6 cm in short axis (2.0 cm previously). Right hilar mass is decreased in size measuring 2.2 cm in maximum diameter in the current study (4.5 cm previously). Enlarged left hilar lymph node is decreased in size measuring 0.8 cm in short axis on the current study (1.2 cm previously). Thoracic aorta and central pulmonary arteries are normal in size. Esophagus is normal in caliber. No hiatal hernia. Bones and chest wall: Left chest wall Port-A-Cath is stable. Chronic appearing T5, T6 and T7 compression deformities are stable. New lesion centered in the T2-T3 disc space with erosion of the inferior plate of T2 and superior plate of C3 noted which could be secondary to metastatic disease versus osteomyelitis-discitis. No axillary or supraclavicular adenopathy by size criteria. Thyroid gland is atrophied.. Abdomen: Visualized upper abdominal solid organs appear normal. Upper abdominal bowel loops are normal in caliber. IMPRESSION: 1. New lytic lesion involving the T2 and T3 vertebral bodies centered at the T2-T3 disc which could represent metastatic lesion versus osteomyelitis-discitis. Recommend MRI of the thoracic spine with and without contrast. 2. Large cavitary lesion involving the right upper lobe stable compared to 06/13/2019. 3. Right hilar, left hilar and mediastinal lymphadenopathy decreased in size compared to 06/13/2019. No new lymphadenopathy based on size criteria. 4. Bilateral pneumonia identified 06/13/2019 has resolved. Findings discussed with Briana Siddiqui of 's office on 08/22/2019 at 1205 hrs. Dictated by: Savanna Byers MD, PhD on 08/22/2019 at 11:43 Approved by: Savanna Byers MD, PhD on 08/22/2019 at 12:09
== END ==
PROVIDERS: Referring Provider Internal Medicine Hematology & Oncology; Visit Provider Internal Medicine Hematology & Oncology
DX: C34.11 Malignant neoplasm of upper lobe, right bronchus or lung (principal); M54.6 Pain in thoracic spine; M89.9 Disorder of bone, unspecified
CPT/HCPCS: 71260; Q9967

== ENCOUNTER → 2019-08-31 10:05 | Outpatient (CLI) | payer OTHER, MEDICAID, SELFPAY ==
[2019-06-08 20:24] VITALS: BMI 18.6
--- NOTE | 2019-08-31 10:07 | DI.NM.S_ITS ---
PROCEDURE: CO BONE SCAN WHOLE BODY RADIOPHARMACEUTICAL: 19.5 mCi Tc-99m MDP IV. INDICATIONS: lung cancer TECHNIQUE: Delayed whole-body scintigrams were obtained approximately 3-4 hours after intravenous injection of radiotracer. Anterior and posterior views were acquired from vertex to feet. Additional left and right oblique views of the thoracic cage were obtained. COMPARISON: [facility], CR, XR LUMBAR SPINE 2-3V, 02/27/2019, 14:02. [facility], NM, NM BONE SCAN WHOLE BODY, 01/11/2019, 14:07. [facility], CT, CT CHEST W CON, 08/22/2019, 9:50. FINDINGS: There is increased activity in the upper thoracic spine in the area of T2 and T3, correlating with lytic bone lesions involving the T2 and T2 vertebral bodies as seen on the CT dated 08/22/2019, consistent with metastases. This finding is new. . There is new linear increased uptake in the L4 vertebral body. There is mild, chronic linear increased activity in the area of T7 vertebra, correlating with an old compression fracture. A focal uptake in the proximal left tibia appears unchanged. Low level increased uptake in the posterior aspect of the right fourth, fifth and sixth ribs correlating with sclerotic lesions seen on CT are unchanged. A focal uptake in the lateral aspect of the left ninth rib is resolved, most likely related to trauma. Old left seventh and eighth ribs rib fractures again noted. IMPRESSION: 1. Increased uptake in T2 and T3 vertebral bodies correlating with lytic bone lesions seen on CT consistent with metastases. 2. New increased uptake in L4 vertebral body appears linear. This finding could be related to a new compression fracture or metastasis. Recommend radiographic or MRI correlation. Dictated by: Avelino Bernard M.D. on 08/31/2019 at 14:57 Approved by: Avelino Bernard M.D. on 09/01/2019 at 8:07
== END ==
PROVIDERS: Referring Provider Internal Medicine Hematology & Oncology; Visit Provider Internal Medicine Hematology & Oncology
DX: C34.11 Malignant neoplasm of upper lobe, right bronchus or lung (principal); M89.9 Disorder of bone, unspecified
CPT/HCPCS: 78306; A9503

== ENCOUNTER 2019-09-01 14:05 | Emergency (ER) | payer OTHER, MEDICAID, SELFPAY ==
[2019-06-08 20:24] VITALS: BMI 18.6
[2019-09-01 14:10] VITALS: BP 126/57; PULSE 97; RESP 20; TEMP 36.8; O2SAT 97; BMI 18.4
--- NOTE | 2019-09-01 14:16 | PC.NURSE ---
pt uses home O2,2L NC
--- NOTE | 2019-09-01 14:26 | ED_ITS ---
HPI - Fall <Arleth Ferro PA-C - Last Filed: 09/02/19 00:01> General Chief Complaint: Fall Stated Complaint: FELL POSSIBLE BREAK RIB OR BACK Time Seen by Provider: 09/01/19 14:20 Source: patient Mode of arrival: Wheelchair Limitations: no limitations History of Present Illness HPI Narrative: This is a 64-year-old gentleman with a history significant for 1/2-1ppd current smoker, GERD, COPD, severe sepsis, pneumonia, cavitary lung lesion, metastatic lung cancer, pancreatitis and DVT who presents to the emergency department complaining of significant mid back and left rib pain that has been worsening since he sustained a fall at home on Wednesday, 3 days ago. He reports that he was in the kitchen and he was heading towards the bathroom and he ?passed out? and he woke up when my head hit the floor he says that ?Nikhil who takes care of me helped me into bed he was not really having much pain at that time however over the next couple of days his pain increased and he feels like he can feel his ribs sticking out funny and when he presses in the back on the left he can feel some popping sensation in the front near his sternum; he also states that his pain has continued to increase. He said he has been seen by his oncologist and actually had a bone scan yesterday, and reports he is scheduled to have an MRI on Wednesday, however he presents to the emergency department today because his pain is so significant and he is concerned he may have a rib fracture. He is on chronic opioid medication for his chronic pain. He denies being on blood thinner medications. He reports he passes out with some frequency often when he is just sitting down he will notice he kind of ?wak es up but did not realize he had been out? but says this does sometimes happen when he is up and about, he says that his physician is aware of this. He reports that he has a chronic gurgling when he breathes and talks that is always there, but does admit he feels he may have been feeling a little bit more short of breath since his fall. He has a chronic productive cough with sputum. He denies recent fever, chills, vomiting, diarrhea, abdominal pain, palpitations, chest pain, dysuria, or any other symptoms. MD complaint: fall Onset (ago): day(s) (3) Fall from: standing Fall witnessed: no Place fall occurred: home Loss of consciousness: yes (prior to fall) Length of LOC: second(s) (1) Prolonged down time: no Symptoms prior to fall: none Location of injury: chest (left ribs mid back) and back Severity: moderate Severity scale (1-10): 4 Quality: sharp (intermittent) and aching (constant) Associated symptoms (after fall): denies, headache, neck pain, numbness, weakness, abdominal pain, hematuria, unable to walk, lightheaded, vertigo, conf usion and other (denies all of the previous) Related Data Home Medications Medication Instructions Recorded Confirmed albuterol sulfate [ProAir HFA] 1 puff INH Q6H 03/18/18 08/15/19 sertraline [Zoloft] 75 mg PO DAILY 06/23/18 08/15/19 Previous Rx's Medication Instructions Recorded ipratropium-albuterol 3 ml INH Q4HR PRN #40 ml 03/20/18 levothyroxine 150 mcg PO DAILY #90 tab 04/11/19 pregabalin [Lyrica] 50 mg PO TID #90 cap 04/11/19 ceftriaxone in dextrose,iso-os 2 gm IV Q24H #7 ea 06/12/19 alprazolam [Xanax] 0.5 mg PO BEDTIME PRN #2 tab 08/24/19 oxycodone 15 mg PO Q4H PRN #180 tab 08/24/19 tramadol 50 mg PO BID PRN #60 tab 08/24/19 Allergies Allergy/AdvReac Type Severity Reaction Status Date / Time aspirin [ASPIRIN] AdvReac Mild NAUSEA Verified 09/01/19 14:15 Review of Systems <Arleth Ferro PA-C - Last Filed: 09/02/19 00:01> Review of Systems Narrative: GENERAL: Denies chills, fatigue, malaise, fever, sweats. HEENT: Denies sinus pain, ear pain, sore throat, difficulty swallowing, dizziness. RESPIRATORY: Endorses chronic dyspnea, cough, wheezing, sputum, denies hemoptysis. CARDIOVASCULAR: Denies chest pain, palpitations, orthopnea, edema, GASTROINTESTINAL: Endorses slight nausea, denies vomiting, abdominal pain, d iarrhea, constipation, melena. : Denies dysuria, frequency, incontinence, hematuria, urinary retention. MUSCULOSKELETAL: denies weakness, joint pain, endorses significant bony pain of his left side ribs posteriorly and mid back SKIN: Denies rash, skin lesions, or other NEUROLOGIC: Denies weakness, headache, numbness, change in speech, confusion, seizures, endorses chronic incoordination, with affect to his walk and movements at rest. PSYCHIATRIC: No concerning psychosocial issues. 12 point review of systems is negative except for those stated above Patient History <Arleth Ferro PA-C - Last Filed: 09/02/19 00:01> Medical History COPD (chronic obstructive pulmonary disease) (Chronic) Depression (Acute) DVT of upper extremity (deep vein thrombosis) (Acute) GERD (gastroesophageal reflux disease) (Acute) Hypothyroid (Chronic) Lung cancer, primary, with metastasis from lung to other site (Chronic) PEG (percutaneous endoscopic gastrostomy) adjustment/replacement/removal (Acute) Peripheral neuropathy (Acute) Surgical History History of lung biopsy (Acute) Family History Mother Congestive heart failure Father Unknown family medical history Social History household members: caregiver and other Smoking Status: Current every day smoker alcohol intake: former Smoking Status: Current every day smoker alcohol intake frequency: holidays/special occasions only Substance Use Type: does not use Exam <Arleth Ferro PA-C - Last Filed: 09/02/19 00:01> Narrative Exam Narrative: GENERAL: 64 year old patient appears stated age. Poorly groomed, poorly-nourished, very slim patient, in mild-moderate distress. HEAD: Atraumatic. Normocephalic. EYES: Pupils equal round and reactive. Extraocular motions intact. No scleral icterus. No injection or drainage. ENT: Nose without bleeding, purulent drainage. Throat without erythema, tonsillar hypertrophy or exudate. Airway patent. NECK: Trachea midline. Non tender CARDIOVASCULAR: Regular rate and rhythm without murmurs, gallops, or rubs. RESPIRATORY: Diffuse rhonchi present in all monte. Breath sounds present all monte, there is a rub the lower left. Slight gurgling sound with normal breathing--Pt endorses this is constant for him. No wheezes, rales. GASTROINTESTINAL: Abdomen soft, non-tender, nondistended. EXTREMITIES: No edema or joint tenderness. BACK: There is tenderness of the left ribs posteriorly and laterally 7 through 10, Spinous processes of the cervical spine T-spine L-spine and sacral area are Nontender without deformity or crepitance. No flank tenderness. NEURO: AOx3. Cranial nerves are intact. Gait is somewhat unsteady, while at rest he has frequent movements of his legs and sometimes arms, Pt states this has been the case for many months. SKIN: Patient is slightly pale, No rash or erythema of visible areas Initial Vital Signs Initial Vital Signs: Vital Signs Temperature 98.3 F 09/01/19 14:10 Pulse Rate 97 H 09/01/19 14:10 Respiratory Rate 09/01/19 14:10 Blood Pressure 126/57 L 09/01/19 14:10 Pulse Oximetry 97 09/01/19 14:10 <Jeff Red MD - Last Filed: 09/02/19 04:18> Initial Vital Signs Initial Vital Signs: Vital Signs Temperature 98.3 F 09/01/19 14:10 Pulse Rate 97 H 09/01/19 14:10 Respiratory Rate 09/01/19 14:10 Blood Pressure 126/57 L 09/01/19 14:10 Pulse Oximetry 97 09/01/19 14:10 Course <Arleth Ferro PA-C - Last Filed: 09/02/19 00:01> Course Course Narrative: Had planned discharge but RN noted he thought his heart was going fast in stretches multiple times, spoke with Dr. Red and we are p utting him on a monitor to reassess his cardiac rhythms. 18:31 On review of med rec patient takes 15 mg of oral oxycodone every 4 hours as needed for his cancer pain, for this reason I have prescribed him additional 10 here in the emergency department is it has been a few hours since he originally had a 7.5 and he is in significant pain. 18:39 Patient was ultimately discharged after monitoring cardiac rhythm for some time, without any evidence of arrhythmias. Orders Ordered: Discontinued Medications Ondansetron HCl (Zofran) 4 mg PO NOW ONE Stop: 09/01/19 14:47 Last Admin: 09/01/19 14:53 Dose: Not Given Documented by: JOE Ondansetron HCl (Zofran Odt) 4 mg SL NOW ONE Stop: 09/01/19 14:54 Last Admin: 09/01/19 14:56 Dose: 4 mg Documented by: JOVANA Oxycodone HCl (Percolone) 10 mg PO NOW ONE Stop: 09/01/19 18:38 Last Admin: 09/01/19 18:51 Dose: 10 mg Documented by: JOVANA Oxycodone/Acetaminophen (Oxycodon/Acetaminophen 7.5/325) 1 tab PO NOW ONE Stop: 09/01/19 16:17 Last Admin: 09/01/19 16:53 Dose: 1 tab Documented by: JOE Vital Signs Vital signs: Vital Signs - 8 hr 09/01/19 20:34 Pulse Rate 76 Respiratory Rate 22 Blood Pressure 154/76 H Pulse Oximetry 100 <Jeff Red MD - Last Filed: 09/02/19 04:18> Orders Ordered: Discontinued Medications Ondansetron HCl (Zofran) 4 mg PO NOW ONE Stop: 09/01/19 14:47 Last Admin: 09/01/19 14:53 Dose: Not Given Documented by: JOE Ondansetron HCl (Zofran Odt) 4 mg SL NOW ONE Stop: 09/01/19 14:54 Last Admin: 09/01/19 14:56 Dose: 4 mg Documented by: JOVANA Oxycodone HCl (Percolone) 10 mg PO NOW ONE Stop: 09/01/19 18:38 Last Admin: 09/01/19 18:51 Dose: 10 mg Documented by: JOVANA Oxycodone/Acetaminophen (Oxycodon/Acetaminophen 7.5/325) 1 tab PO NOW ONE Stop: 09/01/19 16:17 Last Admin: 09/01/19 16:53 Dose: 1 tab Documented by: JOE Vital Signs Vital signs: Vital Signs - 8 hr 09/01/19 20:34 Pulse Rate 76 Respiratory Rate 22 Blood Pressure 154/76 H Pulse Oximetry 100 MDM - Fall <Arleth Ferro PA-C - Last Filed: 09/02/19 00:01> Medical Records Attestation: I reviewed the patient's medical records. Lab Data Attestation: I reviewed the patient's lab results. Result diagrams: 09/01/19 15:00 09/01/19 15:00 Labs: Lab Results 09/01/19 09/01/19 09/01/19 Range/Units 15:00 15:00 15:00 WBC 13.5 H (4.5-11.0) X10^3/uL RBC 4.32 L (4.5-5.9) X10^6/uL Hgb 11.3 L (13.5-17.5) g/dL Hct 34.1 L (41-53) % MCV 78.8 L (80-100) fL MCH 26.1 (26-34) PG MCHC 33.1 (30-36) % RDW 16.0 H (11.6-14.8) % Plt Count 471 H (150-400) X10^3/uL Neut % (Auto) 74.5 (50-75) % Lymph % (Auto) 10.3 L (25-40) % Chase % (Auto) 12.2 (3-14) % Eos % (Auto) 1.9 L (2-4) % Baso % (Auto) 1.1 (0-2) % Neut # (Auto) 86406 H (0806-4351) /uL Lymph # (Auto) 1400 (6957-9172) /uL Chase # (Auto) 1600 H (0-900) /uL Eos # (Auto) 300 (0-450) /uL Baso # (Auto) 200 H (0-100) /uL Sodium 134 L (137-145) mmol/L Potassium 4.1 (3.4-5.1) mmol/L Chloride 98 (98-107) mmol/L Carbon Dioxide 25 (22-32) mmol/L BUN 11 (9-20) mg/dL Creatinine 0.89 (0.66-1.25) mg/dL Estimated GFR > 60.0 (>60) mL/min BUN/Creatinine Ratio 12.4 (6-22) Glucose 138 H (80-110) mg/dL Calcium 9.0 (8.4-10.2) mg/dL Total Bilirubin 0.5 (0.2-1.3) mg/dL AST 17 (17-59) IU/L ALT 9 (<50) IU/L Alkaline Phosphatase 92 (38-126) U/L Total Protein 7.8 (6.3-8.2) g/dL Albumin 3.5 (3.5-5.0) g/dL Globulin 4.3 H (1.7-4.1) g/dL Albumin/Globulin Ratio 0.8 L (1.0-2.8) Procalcitonin 0.18 (<0.5) ng/mL Imaging Data Chest x-ray: Attestation: I personally reviewed and interpreted this imaging study as follows: Radiologist's Impression: [address] [address] XRay Report Signed Patient: Yash Davila DMR#: [id number] : 5Acct:[id number] Age/Sex: 64 / MDate of Service: 09/01/19 Loc: ED Accession Number: [id number] Procedure: XR ribs LT min 3V w CXR1V Ordering Provider: Arleth Ferro P.A-C PROCEDURE: XR RIBS LT MIN 3V W CXR1V INDICATIONS: fall, rib/back pain also concern for pneumonia TECHNIQUE: 2 views of the left ribs were acquired, along with a single view chest. COMPARISON: [facility], CT, CT CHEST W CON, 08/22/2019, 9:50. FINDINGS: Surgical changes and devices: Port-A-Cath from a left-sided approach extends to slightly across the midline, and terminates at the confluence of the right and left brachiocephalic vein area.. Bones and chest wall: No fractures or dislocations. No suspicious bony lesions. Overlying soft tissues appear unremarkable. Lungs and pleura: There is a air-fluid level within a previously documented cavitary space at the right apex, without change from a prior CT scanning when differences in technique are taken into account.. Lungs appear abnormal with an interstitial prominence, likely related to prior smoking history. Considering differences in technique the lung parenchyma has not appreciably changed from the CT scanning appearance approximately 10 days ago.. Mediastinum: Mediastinal contours appear normal. Heart size is normal. IMPRESSION: 1. Rib fractures, no acute trauma found. Port-A-Cath in normal position from left sided approach. 2. Large lung volumes, COPD is presumed. Interstitial prominence likely r elates to prior smoking history. Cavitary mass right lung apex, containing air-fluid level, as was the case by CT scanning 10 days ago. Dictated by: Familia Clarke M.D. on 09/01/2019 at 16:33 Approved by: Familia Clarke M.D. on 09/01/2019 at 16:36 ECG Data Attestation: I personally reviewed and interpreted this ECG as follows: Prior ECG tracings: not available for review (NSR rate of 92 ND int 160 QRS 90 QT 334 P axis 79, R axis 33, T axis 64) MDM Narrative Medical decision making narrative: This is a chronically ill-appearing 64-year- old with a history significant for COPD, cavitary lesion of his lung, lung cancer with metastasis to bone, on chronic opioids for cancer pain, hypothyroid who presents to the emergency department with complaint of left rib pain after a fall he sustained at home 3 days ago. Given his inspiratory pain, and lung exam there was some concern for a possible pneumonia, However his chest x-ray did not appear appreciably changed from the CT he had 10 days ago here. Based on labs, vital signs, exam and history I do not suspect an acute illness, sepsis, or pneumonia, ureterolithiasis or pyelo. He seems to have fairly significant pain, however he does take fairly high dose of opioids as well as tramadol for his cancer pain on a regular basis and he was likely under medicated while in the ED as he did not bring his medications with him to the emergency department. He Appears to have a microcytic anemia. I think it is likely that his increased pain is in fact due to his cancer, with metastasis possibly to his spine and or ribs. Notably he had a bone scan completed yesterday, and is scheduled to have an MRI done on Wednesday to further assess his pain. He was also seen by his oncologist recently (since his fall) who ordered these studies. monitoring and evaluation advisor due to concern for possible syncopal episode prior to his fall 3 days ago as well as possible rapid heart rate while in The emergency department, however no arrhythmias were noted, his EKG was also normal. He was ultimately discharged home with advice to follow-up with his PCP and oncologist and was provided with emergency return precautions. All questions were answered. <Jeff Red MD - Last Filed: 09/02/19 04:18> Lab Data Labs: Lab Results 09/01/19 09/01/19 09/01/19 Range/Units 15:00 15:00 15:00 WBC 13.5 H (4.5-11.0) X10^3/uL RBC 4.32 L (4.5-5.9) X10^6/uL Hgb 11.3 L (13.5-17.5) g/dL Hct 34.1 L (41-53) % MCV 78.8 L (80-100) fL MCH 26.1 (26-34) PG MCHC 33.1 (30-36) % RDW 16.0 H (11.6-14.8) % Plt Count 471 H (150-400) X10^3/uL Neut % (Auto) 74.5 (50-75) % Lymph % (Auto) 10.3 L (25-40) % Chase % (Auto) 12.2 (3-14) % Eos % (Auto) 1.9 L (2-4) % Baso % (Auto) 1.1 (0-2) % Neut # (Auto) 45162 H (7948-3638) /uL Lymph # (Auto) 1400 (7967-6593) /uL Chase # (Auto) 1600 H (0-900) /uL Eos # (Auto) 300 (0-450) /uL Baso # (Auto) 200 H (0-100) /uL Sodium 134 L (137-145) mmol/L Potassium 4.1 (3.4-5.1) mmol/L Chloride 98 (98-107) mmol/L Carbon Dioxide 25 (22-32) mmol/L BUN 11 (9-20) mg/dL Creatinine 0.89 (0.66-1.25) mg/dL Estimated GFR > 60.0 (>60) mL/min BUN/Creatinine Ratio 12.4 (6-22) Glucose 138 H (80-110) mg/dL Calcium 9.0 (8.4-10.2) mg/dL Total Bilirubin 0.5 (0.2-1.3) mg/dL AST 17 (17-59) IU/L ALT 9 (<50) IU/L Alkaline Phosphatase 92 (38-126) U/L Total Protein 7.8 (6.3-8.2) g/dL Albumin 3.5 (3.5-5.0) g/dL Globulin 4.3 H (1.7-4.1) g/dL Albumin/Globulin Ratio 0.8 L (1.0-2.8) Procalcitonin 0.18 (<0.5) ng/mL Discharge Plan Departure Patient Disposition: Home Clinical Impression: Rib pain on left side Fall from standing Qualifiers: Encounter type: initial encounter Qualified Code(s): W19.XXXA - Unspecified fall, initial encounter Back pain Qualifiers: Back pain location: thoracic back pain Chronicity: acute Back pain laterality: left Qualified Code(s): M54.6 - Pain in thoracic spine Discharge Date/Time: 09/01/19 20:36 Instructions: How to Prevent Falls Activity Restrictions/Additional Instructions: Thank you for letting us to be part of your care in the emergency department today. There is no evidence of an emergent or life threatening illness at this time, but follow up with your doctor in 1-2 days is recommended nonetheless to continue to rule out serious underlying causes of your symptoms. Please call the office for an appointment. Please return to the Emergency Department for any worsening or persistent symptoms. Please take medications as directed. Your x- ray did not show any evidence of fractures, sometimes x-rays do not show new fractures until a week or 2 after the fracture occurs so please talk to your primary care about follow-up for your pain. It is also possible that your pain is related to your cancer and possible bone involvement. Because you had an episode of passing out before you fell a few days ago we monitored your cardiac rhythm for a while in the emergency department but we did not see any arrhythmias or any problems there. I do recommend a follow-up with your primary care and your oncologist regarding her ongoing pain. If you have any worsening of your symptoms or develops any new symptoms please do not hesitate to seek medical care return to the emergency department. Prescriptions: No Action sertraline [Zoloft] 50 mg Tablet 75 mg PO DAILY RF: 0 levothyroxine 150 mcg Tablet 150 mcg PO DAILY Qty: 90 RF: 0 pregabalin [Lyrica] 50 mg Capsule 50 mg PO TID Qty: 90 RF: 1 oxycodone 15 mg Tablet 15 mg PO Q4H PRN (Reason: cancer pain) Qty: 180 RF: 0 tramadol 50 mg Tablet 50 mg PO BID PRN (Reason: pain) Qty: 60 RF: 0 alprazolam [Xanax] 0.5 mg Tablet 0.5 mg PO BEDTIME PRN (Reason: claustrophobic) Qty: 2 RF: 0 albuterol sulfate [ProAir HFA] 90 MCG/PUFF HFA aerosol inhaler 1 puff INH Q6H RF: 0 ipratropium-albuterol 0.5 mg-3 mg(2.5 mg base)/3 mL Solution For Nebulization 3 ml INH Q4HR PRN (Reason: sob/wheezing) Qty: 40 RF: 0 ceftriaxone in dextrose,iso-os 2 gram/50 mL Piggyback 2 gm IV Q24H Qty: 7 RF: 0 Referrals: [facility] [Outside]
--- NOTE | 2019-09-01 14:45 | DI.RAD.S_ITS ---
PROCEDURE: XR RIBS LT MIN 3V W CXR1V INDICATIONS: fall, rib/back pain also concern for pneumonia TECHNIQUE: 2 views of the left ribs were acquired, along with a single view chest. COMPARISON: [facility], CT, CT CHEST W CON, 08/22/2019, 9:50. FINDINGS: Surgical changes and devices: Port-A-Cath from a left-sided approach extends to slightly across the midline, and terminates at the confluence of the right and left brachiocephalic vein area.. Bones and chest wall: No fractures or dislocations. No suspicious bony lesions. Overlying soft tissues appear unremarkable. Lungs and pleura: There is a air-fluid level within a previously documented cavitary space at the right apex, without change from a prior CT scanning when differences in technique are taken into account.. Lungs appear abnormal with an interstitial prominence, likely related to prior smoking history. Considering differences in technique the lung parenchyma has not appreciably changed from the CT scanning appearance approximately 10 days ago.. Mediastinum: Mediastinal contours appear normal. Heart size is normal. IMPRESSION: 1. Rib fractures, no acute trauma found. Port-A-Cath in normal position from left sided approach. 2. Large lung volumes, COPD is presumed. Interstitial prominence likely relates to prior smoking history. Cavitary mass right lung apex, containing air-fluid level, as was the case by CT scanning 10 days ago. Dictated by: Familia Clarke M.D. on 09/01/2019 at 16:33 Approved by: Familia Clarke M.D. on 09/01/2019 at 16:36
[2019-09-01] MEDS: ONDANSETRON 4 MG ODT SL (14:56)
[2019-09-01 15:11] LABS: Add Manual Diff / Slide Review NO; Basophils Absolute Auto 200 /uL (0-100); Basophils Percent Auto 1.1 % (0-2); Eosinophils Absolute Auto 300 /uL (0-450); Eosinophils Percent Auto 1.9 % (2-4); Hematocrit 34.1 % (41-53); Hemoglobin 11.3 g/dL (13.5-17.5); Lymphocytes Absolute Auto 1400 /uL (1100-4500); Lymphocytes Percent Auto 10.3 % (25-40); Mean Corpuscular HGB Conc 33.1 % (30-36); Mean Corpuscular Hemoglobin 26.1 PG (26-34); Mean Corpuscular Volume 78.8 fL (80-100); Monocytes Absolute Auto 1600 /uL (0-900); Monocytes Percent Auto 12.2 % (3-14); Neutrophils Absolute Auto 10000 /uL (1500-7000); Neutrophils Percent Auto 74.5 % (50-75); Platelet Count 471 X10^3/uL (150-400); Red Blood Cell Count 4.32 X10^6/uL (4.5-5.9); White Blood Cell Count 13.5 X10^3/uL (4.5-11.0)
[2019-09-01 15:39] LABS: Alanine Aminotransferase 9 IU/L (<50); Albumin 3.5 g/dL (3.5-5.0); Albumin Globulin Ratio 0.8 (1.0-2.8); Alkaline Phosphatase 92 U/L (38-126); Aspartate Aminotransferase 17 IU/L (17-59); BUN Creatinine Ratio 12.4 (6-22); Bilirubin Total 0.5 mg/dL (0.2-1.3); Blood Urea Nitrogen 11 mg/dL (9-20); Carbon Dioxide 25 mmol/L (22-32); Chloride 98 mmol/L (98-107); Estimated Glomerular Filt Rate > 60.0 mL/min (>60); Globulin 4.3 g/dL (1.7-4.1); Glucose 138 mg/dL (80-110); HEMOLYSIS < 15 (0-50); Potassium 4.1 mmol/L (3.4-5.1); Sodium 134 mmol/L (137-145); Total Protein 7.8 g/dL (6.3-8.2)
[2019-09-01 16:20] LABS: Procalcitonin 0.18 ng/mL (<0.5)
[2019-09-01] MEDS: OXYCODONE/ACETAMINOPHEN 7.5/325 TABLET 1 TAB PO (16:53)
[2019-09-01 17:42] VITALS: O2SAT 92
[2019-09-01] MEDS: OXYCODONE IR 5 MG TABLET 10 MG PO (18:51)
[2019-09-01 19:54] VITALS: BP 154/76; PULSE 76; RESP 21; O2SAT 90
--- NOTE | 2019-09-01 20:08 | PC.NURSE ---
patient in room asleep. He is urinating at this time. Arleth to discharge him soon.
[2019-09-01 20:34] VITALS: BP 154/76; PULSE 76; RESP 22; O2SAT 100
== END 2019-09-01 20:36 | disposition home or self-care (01) ==
PROVIDERS: Emergency Provider Student in an Organized Health Care Education/Training Program
DX: R07.81 Pleurodynia (principal); M54.6 Pain in thoracic spine; W19.XXXA Unspecified fall, initial encounter; J44.9 Chronic obstructive pulmonary disease, unspecified; C34.90 Malignant neoplasm of unspecified part of unspecified bronchus or lung; C79.51 Secondary malignant neoplasm of bone
CPT/HCPCS: 36415; 71101; 80053; 84145; 85025; 93005; 93010; 99284

== ENCOUNTER → 2019-09-04 14:17 | Outpatient (CLI) | payer OTHER, MEDICAID, SELFPAY ==
[2019-06-08 20:24] VITALS: BMI 18.6
--- NOTE | 2019-09-04 | DI.MRI.S_ITS ---
PROCEDURE: MR THORACIC SPINE WO/W CON INDICATIONS: Malignant neoplasm TECHNIQUE: Noncontrast sagittal T1 spin echo and T2 fast spin echo, sagittal STIR, axial T1 and T2 fast spin echo through the thoracic spine. After the administration of contrast, axial and sagittal T1 spin echo with fat saturation through the thoracic spine. COMPARISON: [facility], [place], AL BONE SCAN WHOLE BODY, 08/31/2019, 13:19. [place], [place], PET/CT SKULL BASE TO MID THIGH, 11/08/2015, 13:02. [facility], MR, T-SPINE W&WO CONTRAST, 04/30/2015, 7:43. [facility], CT, CT CHEST WO CON, 02/09/2018, 14:28. [facility], CT, CT CHEST WO CON, 03/09/2018, 15:10. FINDINGS: Image quality: This examination is limited by involuntary motion artifact. Alignment and curvature: Accentuated thoracic kyphosis is seen. Marrow: There is abnormal signal seen within the T2 and T3 vertebral bodies, with decreased T1 weighted signal with increased STIR signal and increased enhancement. There is an anterior wedge deformity seen of T3, with 30% loss of height anteriorly. There is a chronic appearing anterior wedge deformities seen at T7, with 30% loss of height anteriorly. Mild anterior wedge deformities can be seen involving the T4, T5, and T6 levels, without acute features. Spinal cord: Visualized spinal cord is of normal signal and size, without abnormal enhancement. Paraspinous soft tissues: There is a cavitary lesion with air-fluid level seen within the right lung apex, that measures at least 11 cm. Incidental 16, there was encroachment within the spinal canal at T3 level. This is no longer definitely seen. Miscellaneous: There is obscuration of the right neural foramen at the T3-T4 level. The other neural foramina are unremarkable. No significant central canal narrowing can be seen. 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 There were previously seen soft tissue masses with encroachment within the spinal canal. This is no longer seen. However, the right T3-T4 neural foramen is obscured. There is a cavitary lesion seen involving the right lung apex with an air-fluid level, which measures at least 11 cm. A short term followup chest CT with IV contrast is recommended, if clinically appropriate. There are several levels of chronic appearing anterior deformities seen, which are most prominent at T7. Dictated by: Kelton Camilo M.D. on 09/04/2019 at 15:06 Approved by: Kelton Camilo M.D. on 09/04/2019 at 15:15
== END ==
PROVIDERS: Referring Provider Internal Medicine Hematology & Oncology; Visit Provider Internal Medicine Hematology & Oncology
DX: C34.11 Malignant neoplasm of upper lobe, right bronchus or lung (principal); C79.51 Secondary malignant neoplasm of bone
CPT/HCPCS: 72157; A9579

== ENCOUNTER 2019-10-14 20:07 | Inpatient (IN) | payer OTHER, SELFPAY ==
[2019-06-08 20:24] VITALS: BMI 18.6
[2019-10-14] VITALS (13 sets, daily range): BP systolic 97–134; BP diastolic 57–67; PULSE 62–101; RESP 12–41; TEMP 37.7; O2SAT 95–100; BMI 18.4
--- NOTE | 2019-10-14 20:18 | ED.SOB ---
HPI - SOB/Dyspnea <Tomasa CrawfordKELLYP - Last Filed: 10/14/19 21:02> General Chief Complaint: Shortness of Breath/Dyspnea Stated Complaint: Shortness of Breath Time Seen by Provider: 10/14/19 20:20 Source: patient Limitations: no limitations History of Present Illness HPI Narrative: 64yo male smoker with a history of COPD, GERD, cavitary lung lesion, pancreatitis, metastatic lung cancer, and DVT and right arm, presents emergency department for increasing productive cough, shortness of breath, and fevers intermittently for the past 4 days. He has been isolating at home but has caregivers that come and take care of him, states he has had a fever of up to 102F with increasing dyspnea with moving. Patient also reports increasing weakness. He states in the past he has had pus in the cavitary lung lesion before and has had to have it drained. He has been previously tested for COVID and has tested negative. Patient was transported by EMS, EMS noted significant dyspnea upon arrival, they gave a nebulizer treatment outside which significantly improved oxygen saturation and dyspnea. Initially patient was reported to have an oxygen saturation of 80% on his 3 L nasal cannula which he is chronically on. After the nebulizer, oxygen saturations improved to 96%. Patient denies taking any blood thinners, denies any history of diabetes or heart problems. Patient denies abdominal pain, chest pain, vomiting, headaches, dizziness, syncope, or any other concerns. Related Data Home Medications Medication Instructions Recorded Confirmed albuterol sulfate [ProAir HFA] 1 puff INH Q6H 03/18/18 08/15/19 sertraline [Zoloft] 75 mg PO DAILY 06/23/18 08/15/19 Previous Rx's Medication Instructions Recorded ipratropium-albuterol 3 ml INH Q4HR PRN #40 ml 03/20/18 levothyroxine 150 mcg PO DAILY #90 tab 04/11/19 pregabalin [Lyrica] 50 mg PO TID #90 cap 04/11/19 ceftriaxone in dextrose,iso-os 2 gm IV Q24H #7 ea 06/12/19 alprazolam [Xanax] 0.5 mg PO BEDTIME PRN #2 tab 08/24/19 tramadol 50 mg PO BID PRN #60 tab 08/24/19 oxycodone 20 mg PO Q4H PRN #180 tab 09/18/19 Allergies Allergy/AdvReac Type Severity Reaction Status Date / Time aspirin [ASPIRIN] AdvReac Mild NAUSEA Verified 09/01/19 14:15 Review of Systems <GEORGE Ornelas - Last Filed: 10/14/19 21:02> Review of Systems Narrative: REVIEW OF SYSTEMS: GENERAL: Reports fevers, see HPI. HENT: No head trauma or hearing loss. EYES: No no vision changes. CARDIOVASCULAR: No chest pain or syncope. RESPIRATORY: Complains of shortness of breath and cough, see HPI. GASTROINTESTINAL: No nausea, vomiting, diarrhea, or constipation. MUSCULOSKELETAL: No weakness or injury. INTEGUMENTARY: No rash, lesions, or pruritus. NEURO: No memory loss, or confusion. Patient History <GEORGE Ornelas - Last Filed: 10/14/19 21:02> Medical History COPD (chronic obstructive pulmonary disease) (Chronic) Depression (Acute) DVT of upper extremity (deep vein thrombosis) (Acute) GERD (gastroesophageal reflux disease) (Acute) Hypothyroid (Chronic) Lung cancer, primary, with metastasis from lung to other site (Chronic) PEG (percutaneous endoscopic gastrostomy) adjustment/replacement/removal (Acute) Peripheral neuropathy (Acute) Surgical History History of lung biopsy (Acute) Family History Mother Congestive heart failure Father Unknown family medical history Social History household members: caregiver and other Smoking Status: Current every day smoker alcohol intake: former Smoking Status: Current every day smoker alcohol intake frequency: holidays/special occasions only Substance Use Type: does not use Exam <GEORGE Ornelas - Last Filed: 10/14/19 21:02> Initial Vital Signs Initial Vital Signs: Vital Signs Temperature 100 F H 10/14/19 19:45 Respiratory Rate 29 H 10/14/19 19:45 PHYSICAL EXAMINATION: GENERAL: Chronically ill-appearing, emaciated. Answers questions promptly and appropriately. Vital signs noted. HENT: Normocephalic, atraumatic.. EYES: Conjunctiva pink, sclera white, no periorbital swelling. No discharge. CHEST: Normal to inspection and without deformities. Subclavian port noted. CARDIOVASCULAR: S1 and S2 sounds normal. Increased rate and rhythm, no murmurs, clicks, or bruits. RESPIRATORY: Increased respiratory rate, dyspnea noted with minor exertion. Coarse lung sounds throughout, decreased lung sounds to right upper lobe lower lobes bilaterally. Scattered rhonchi noted. MUSCULOSKELETAL: Normal gait and coordination. Equal tone and mass bilaterally. EXTREMITIES: Moves all extremities. No pedal edema. SKIN: Warm, dry, soft, appropriate color for ethnicity. No lesions, rashes, or wounds to visualized areas. NEURO: Alert and Oriented X 3. Good coordination. No ataxia or cognitive issues. PSYCH: Appropriate affect and mood. <Andre Willett DO - Last Filed: 10/15/19 01:15> Initial Vital Signs Initial Vital Signs: Vital Signs Temperature 100 F H 10/14/19 19:45 Respiratory Rate 29 H 10/14/19 19:45 Course <GEORGE Ornelas - Last Filed: 10/14/19 21:02> Orders Ordered: ED Orders 10/14/19 20:16 Consult to Respiratory Therapy Evaluate & Treat EKG-12 Lead Stat 10/14/19 20:17 XR chest 1V Stat 10/14/19 20:30 Complete Blood Count AUTO DIFF Stat Comprehensive Metabolic Panel Stat Lactate (Lactic Acid) Stat Magnesium Stat Procalcitonin Stat Troponin & CK Cardiac Panel Stat 10/14/19 20:54 Sputum Culture Stat 10/14/19 20:57 Blood Culture Stat 10/14/19 21:50 Urinalysis and Microscopic Stat Urine Culture Stat Acetaminophen (Tylenol) 650 mg PO Q6HR PRN PRN Reason: Fever/Mild Pain (1-3) Albuterol/Ipratropium (Duoneb) 3 ml INH Q4HR PRN PRN Reason: sob/wheezing Azithromycin (Zithromax) 500 mg PO DAILY [place] Enoxaparin Sodium (Lovenox) 40 mg SUBCUT DAILY [facility] Sodium Chloride (Normal Saline 0.9%) 1,000 mls @ 100 mls/hr IV CONT [place] Levofloxacin (Levaquin) 750 mg PO DAILY [place] Levothyroxine Sodium (Synthroid) 150 mcg PO QACBREAK [place] Naloxone HCl (Narcan) 0.2 mg IV Q2MIN PRN PRN Reason: Opiate Reversal Oxycodone HCl (Percolone) 20 mg PO Q4H PRN PRN Reason: pain, cancer-related Pregabalin (Lyrica) 50 mg PO TID [facility] Fluticasone/Salmeterol (Advair 250/50 Diskus) 1 puff INH RTBID [facility] Sertraline HCl (Zoloft) 75 mg PO DAILY [place] Tramadol HCl (Ultram) 50 mg PO BID PRN PRN Reason: pain Discontinued Medications Sodium Chloride (Normal Saline 0.9%) 1,000 mls @ 1,000 mls/hr IV BOLUS ONE Stop: 10/14/19 21:28 Last Infusion: 10/14/19 23:12 Dose: 0 mls/hr Documented by: Infusion: 10/14/19 21:52 Dose: 25 mls/hr Documented by: Admin: 10/14/19 21:00 Dose: 1,000 mls/hr Documented by: CARLIN Levofloxacin (Levaquin) 750 mg in 150 mls @ 100 mls/hr IV NOW ONE Stop: 10/14/19 22:24 Last Infusion: 10/14/19 23:12 Dose: 0 mls/hr Documented by: Admin: 10/14/19 21:39 Dose: 100 mls/hr Documented by: CARLIN Methylprednisolone (Solu-Medrol 125 Mg Vial) 125 mg IV NOW ONE Stop: 10/14/19 20:17 Last Admin: 10/14/19 20:26 Dose: 125 mg Documented by: HGAKILA Vital Signs Vital signs: Vital Signs - 8 hr 10/14/19 19:45 10/14/19 20:12 10/14/19 20:13 Temperature 100 F H Pulse Rate 101 H 99 H Respiratory Rate 29 H Blood Pressure 109/64 109/64 Pulse Oximetry 99 99 10/14/19 20:30 10/14/19 20:37 10/14/19 20:55 Temperature Pulse Rate 96 H 90 Respiratory Rate 34 H 20 20 Blood Pressure 112/63 Pulse Oximetry 99 98 98 10/14/19 21:00 10/14/19 21:30 10/14/19 22:00 Temperature Pulse Rate 92 H 79 78 Respiratory Rate 30 H 12 35 H Blood Pressure 106/57 L 108/59 L Pulse Oximetry 95 97 98 10/14/19 22:30 10/14/19 23:00 10/14/19 23:01 Temperature Pulse Rate 69 76 77 Respiratory Rate 18 40 H 41 H Blood Pressure 118/59 L 97/57 L Pulse Oximetry 98 98 98 10/14/19 23:30 10/15/19 00:00 Temperature Pulse Rate 62 70 Respiratory Rate 30 H 30 H Blood Pressure 134/67 116/62 Pulse Oximetry 100 99 <Andre Willett, DO - Last Filed: 10/15/19 01:15> Orders Ordered: ED Orders 10/14/19 20:16 Consult to Respiratory Therapy Evaluate & Treat EKG-12 Lead Stat 10/14/19 20:17 XR chest 1V Stat 10/14/19 20:30 Complete Blood Count AUTO DIFF Stat Comprehensive Metabolic Panel Stat Lactate (Lactic Acid) Stat Magnesium Stat Procalcitonin Stat Troponin & CK Cardiac Panel Stat 10/14/19 20:54 Sputum Culture Stat 10/14/19 20:57 Blood Culture Stat 10/14/19 21:50 Urinalysis and Microscopic Stat Urine Culture Stat Acetaminophen (Tylenol) 650 mg PO Q6HR PRN PRN Reason: Fever/Mild Pain (1-3) Albuterol/Ipratropium (Duoneb) 3 ml INH Q4HR PRN PRN Reason: sob/wheezing Azithromycin (Zithromax) 500 mg PO DAILY [facility] Enoxaparin Sodium (Lovenox) 40 mg SUBCUT DAILY [facility] Sodium Chloride (Normal Saline 0.9%) 1,000 mls @ 100 mls/hr IV CONT [facility] Levofloxacin (Levaquin) 750 mg PO DAILY [facility] Levothyroxine Sodium (Synthroid) 150 mcg PO QACBREAK [facility] Naloxone HCl (Narcan) 0.2 mg IV Q2MIN PRN PRN Reason: Opiate Reversal Oxycodone HCl (Percolone) 20 mg PO Q4H PRN PRN Reason: pain, cancer-related Pregabalin (Lyrica) 50 mg PO TID [facility] Fluticasone/Salmeterol (Advair 250/50 Diskus) 1 puff INH RTBID [facility] Sertraline HCl (Zoloft) 75 mg PO DAILY [facility] Tramadol HCl (Ultram) 50 mg PO BID PRN PRN Reason: pain Discontinued Medications Sodium Chloride (Normal Saline 0.9%) 1,000 mls @ 1,000 mls/hr IV BOLUS ONE Stop: 10/14/19 21:28 Last Infusion: 10/14/19 23:12 Dose: 0 mls/hr Documented by: Infusion: 10/14/19 21:52 Dose: 25 mls/hr Documented by: Admin: 10/14/19 21:00 Dose: 1,000 mls/hr Documented by: CARLIN Levofloxacin (Levaquin) 750 mg in 150 mls @ 100 mls/hr IV NOW ONE Stop: 10/14/19 22:24 Last Infusion: 10/14/19 23:12 Dose: 0 mls/hr Documented by: Admin: 10/14/19 21:39 Dose: 100 mls/hr Documented by: CARLIN Methylprednisolone (Solu-Medrol 125 Mg Vial) 125 mg IV NOW ONE Stop: 10/14/19 20:17 Last Admin: 10/14/19 20:26 Dose: 125 mg Documented by: CUCO Vital Signs Vital signs: Vital Signs - 8 hr 10/14/19 19:45 10/14/19 20:12 10/14/19 20:13 Temperature 100 F H Pulse Rate 101 H 99 H Respiratory Rate 29 H Blood Pressure 109/64 109/64 Pulse Oximetry 99 99 10/14/19 20:30 10/14/19 20:37 10/14/19 20:55 Temperature Pulse Rate 96 H 90 Respiratory Rate 34 H 20 20 Blood Pressure 112/63 Pulse Oximetry 99 98 98 10/14/19 21:00 10/14/19 21:30 10/14/19 22:00 Temperature Pulse Rate 92 H 79 78 Respiratory Rate 30 H 12 35 H Blood Pressure 106/57 L 108/59 L Pulse Oximetry 95 97 98 10/14/19 22:30 10/14/19 23:00 10/14/19 23:01 Temperature Pulse Rate 69 76 77 Respiratory Rate 18 40 H 41 H Blood Pressure 118/59 L 97/57 L Pulse Oximetry 98 98 98 10/14/19 23:30 10/15/19 00:00 Temperature Pulse Rate 62 70 Respiratory Rate 30 H 30 H Blood Pressure 134/67 116/62 Pulse Oximetry 100 99 MDM - SOB/Dyspnea <GEORGE Ornelas - Last Filed: 10/14/19 21:02> Medical Records Attestation: I reviewed the patient's medical records. Lab Data Attestation: I reviewed the patient's lab results. Result diagrams: 10/14/19 20:30 10/14/19 20:30 Labs: Lab Results 10/14/19 10/14/19 10/14/19 Range/Units 20:30 20:30 20:30 WBC 17.5 H (4.5-11.0) X10^3/uL RBC 4.58 (4.5-5.9) X10^6/uL Hgb 11.4 L (13.5-17.5) g/dL Hct 35.4 L (41-53) % MCV 77.2 L (80-100) fL MCH 24.9 L (26-34) PG MCHC 32.3 (30-36) % RDW 16.8 H (11.6-14.8) % Plt Count 695 H (150-400) X10^3/uL Neut % (Auto) 86.8 H (50-75) % Lymph % (Auto) 6.2 L (25-40) % [place] % (Auto) 5.7 (3-14) % Eos % (Auto) 0.6 L (2-4) % Baso % (Auto) 0.7 (0-2) % Neut # (Auto) 94818 H (5796-8307) /uL Lymph # (Auto) 1100 (8187-6702) /uL [place] # (Auto) 1000 H (0-900) /uL Eos # (Auto) 100 (0-450) /uL Baso # (Auto) 100 (0-100) /uL Sodium 136 L (137-145) mmol/L Potassium 3.5 (3.4-5.1) mmol/L Chloride 100 (98-107) mmol/L Carbon Dioxide 31 (22-32) mmol/L BUN 14 (9-20) mg/dL Creatinine 0.92 (0.66-1.25) mg/dL Estimated GFR > 60.0 (>60) mL/min BUN/Creatinine Ratio 15.2 (6-22) Glucose 130 H (80-110) mg/dL Lactate (0.7-2.1) mmol/L Calcium 9.4 (8.4-10.2) mg/dL Magnesium 1.7 (1.6-2.3) mg/dL Total Bilirubin 0.3 (0.2-1.3) mg/dL AST 35 (17-59) IU/L ALT 19 (<50) IU/L Alkaline Phosphatase 114 (38-126) U/L Total Creatine Kinase 20 L (55-170) U/L CK-MB (CK-2) TNP CK-MB (CK-2) Rel Index TNP Troponin I < 0.012 (0.01-0.034) ng/mL Total Protein 7.8 (6.3-8.2) g/dL Albumin 3.3 L (3.5-5.0) g/dL Globulin 4.5 H (1.7-4.1) g/dL Albumin/Globulin Ratio 0.7 L (1.0-2.8) Procalcitonin 0.24 (<0.5) ng/mL Urine Color Urine Appearance Urine pH (4.5-8.0) Ur Specific [place] (1.000-1.035) Urine Protein (Negative) Urine Glucose (UA) (Negative) g/dL Urine Ketones (NEGATIVE) Urine Occult Blood (Negative) Urine Nitrate (Negative) Urine Bilirubin (NEGATIVE) Urine Urobilinogen (0.2) E.U./dL Ur Leukocyte Esterase (NEGATIVE) Urine RBC (0-5/HPF) Urine WBC (0-5/HPF) Urine Bacteria (None) Ur Culture Indicated? COVID-19 PCR (Negative) 10/14/19 10/14/19 10/14/19 Range/Units 20:30 20:55 21:50 WBC (4.5-11.0) X10^3/uL RBC (4.5-5.9) X10^6/uL Hgb (13.5-17.5) g/dL Hct (41-53) % MCV (80-100) fL MCH (26-34) PG MCHC (30-36) % RDW (11.6-14.8) % Plt Count (150-400) X10^3/uL Neut % (Auto) (50-75) % Lymph % (Auto) (25-40) % [place] % (Auto) (3-14) % Eos % (Auto) (2-4) % Baso % (Auto) (0-2) % Neut # (Auto) (9244-4864) /uL Lymph # (Auto) (1519-1953) /uL [place] # (Auto) (0-900) /uL Eos # (Auto) (0-450) /uL Baso # (Auto) (0-100) /uL Sodium (137-145) mmol/L Potassium (3.4-5.1) mmol/L Chloride (98-107) mmol/L Carbon Dioxide (22-32) mmol/L BUN (9-20) mg/dL Creatinine (0.66-1.25) mg/dL Estimated GFR (>60) mL/min BUN/Creatinine Ratio (6-22) Glucose (80-110) mg/dL Lactate 1.4 (0.7-2.1) mmol/L Calcium (8.4-10.2) mg/dL Magnesium (1.6-2.3) mg/dL Total Bilirubin (0.2-1.3) mg/dL AST (17-59) IU/L ALT (<50) IU/L Alkaline Phosphatase (38-126) U/L Total Creatine Kinase (55-170) U/L CK-MB (CK-2) CK-MB (CK-2) Rel Index Troponin I (0.01-0.034) ng/mL Total Protein (6.3-8.2) g/dL Albumin (3.5-5.0) g/dL Globulin (1.7-4.1) g/dL Albumin/Globulin Ratio (1.0-2.8) Procalcitonin (<0.5) ng/mL Urine Color Yellow Urine Appearance Clear Urine pH 5.5 (4.5-8.0) Ur Specific [place] 1.015 (1.000-1.035) Urine Protein 1+ H (Negative) Urine Glucose (UA) Negative (Negative) g/dL Urine Ketones Trace H (NEGATIVE) Urine Occult Blood Negative (Negative) Urine Nitrate Negative (Negative) Urine Bilirubin Negative (NEGATIVE) Urine Urobilinogen 0.2 (0.2) E.U./dL Ur Leukocyte Esterase Trace H (NEGATIVE) Urine RBC 0-1/hpf (0-5/HPF) Urine WBC 0-1/hpf (0-5/HPF) Urine Bacteria None seen (None) Ur Culture Indicated? Specimen cultured COVID-19 PCR Negative (Negative) ECG Data Interpretation: 2036: No axis deviation. Sinus rhythm, rate 94, TX interval 161, QTC 385. No ST elevation or ST depression. No T-wave abnormality. [facility] Narrative Medical decision making narrative: 64yo male with a history of COPD, lung CA, and cavitary lesion, presents emergency department for fever and increased cough and dyspnea for the past few days. Patient meets sepsis criteria, blood cultures, lactate, chest x-ray, fluids were ordered. Due to current pandemic and symptoms patient was swabed for COVID. <Andre Willett, DO - Last Filed: 10/15/19 01:15> Lab Data Labs: Lab Results 10/14/19 10/14/19 10/14/19 Range/Units 20:30 20:30 20:30 WBC 17.5 H (4.5-11.0) X10^3/uL RBC 4.58 (4.5-5.9) X10^6/uL Hgb 11.4 L (13.5-17.5) g/dL Hct 35.4 L (41-53) % MCV 77.2 L (80-100) fL MCH 24.9 L (26-34) PG MCHC 32.3 (30-36) % RDW 16.8 H (11.6-14.8) % Plt Count 695 H (150-400) X10^3/uL Neut % (Auto) 86.8 H (50-75) % Lymph % (Auto) 6.2 L (25-40) % [place] % (Auto) 5.7 (3-14) % Eos % (Auto) 0.6 L (2-4) % Baso % (Auto) 0.7 (0-2) % Neut # (Auto) 66826 H (3210-0014) /uL Lymph # (Auto) 1100 (0374-6939) /uL [place] # (Auto) 1000 H (0-900) /uL Eos # (Auto) 100 (0-450) /uL Baso # (Auto) 100 (0-100) /uL Sodium 136 L (137-145) mmol/L Potassium 3.5 (3.4-5.1) mmol/L Chloride 100 (98-107) mmol/L Carbon Dioxide 31 (22-32) mmol/L BUN 14 (9-20) mg/dL Creatinine 0.92 (0.66-1.25) mg/dL Estimated GFR > 60.0 (>60) mL/min BUN/Creatinine Ratio 15.2 (6-22) Glucose 130 H (80-110) mg/dL Lactate (0.7-2.1) mmol/L Calcium 9.4 (8.4-10.2) mg/dL Magnesium 1.7 (1.6-2.3) mg/dL Total Bilirubin 0.3 (0.2-1.3) mg/dL AST 35 (17-59) IU/L ALT 19 (<50) IU/L Alkaline Phosphatase 114 (38-126) U/L Total Creatine Kinase 20 L (55-170) U/L CK-MB (CK-2) TNP CK-MB (CK-2) Rel Index TNP Troponin I < 0.012 (0.01-0.034) ng/mL Total Protein 7.8 (6.3-8.2) g/dL Albumin 3.3 L (3.5-5.0) g/dL Globulin 4.5 H (1.7-4.1) g/dL Albumin/Globulin Ratio 0.7 L (1.0-2.8) Procalcitonin 0.24 (<0.5) ng/mL Urine Color Urine Appearance Urine pH (4.5-8.0) Ur Specific [place] (1.000-1.035) Urine Protein (Negative) Urine Glucose (UA) (Negative) g/dL Urine Ketones (NEGATIVE) Urine Occult Blood (Negative) Urine Nitrate (Negative) Urine Bilirubin (NEGATIVE) Urine Urobilinogen (0.2) E.U./dL Ur Leukocyte Esterase (NEGATIVE) Urine RBC (0-5/HPF) Urine WBC (0-5/HPF) Urine Bacteria (None) Ur Culture Indicated? COVID-19 PCR (Negative) 10/14/19 10/14/19 10/14/19 Range/Units 20:30 20:55 21:50 WBC (4.5-11.0) X10^3/uL RBC (4.5-5.9) X10^6/uL Hgb (13.5-17.5) g/dL Hct (41-53) % MCV (80-100) fL MCH (26-34) PG MCHC (30-36) % RDW (11.6-14.8) % Plt Count (150-400) X10^3/uL Neut % (Auto) (50-75) % Lymph % (Auto) (25-40) % [place] % (Auto) (3-14) % Eos % (Auto) (2-4) % Baso % (Auto) (0-2) % Neut # (Auto) (7404-3847) /uL Lymph # (Auto) (4895-7198) /uL [place] # (Auto) (0-900) /uL Eos # (Auto) (0-450) /uL Baso # (Auto) (0-100) /uL Sodium (137-145) mmol/L Potassium (3.4-5.1) mmol/L Chloride (98-107) mmol/L Carbon Dioxide (22-32) mmol/L BUN (9-20) mg/dL Creatinine (0.66-1.25) mg/dL Estimated GFR (>60) mL/min BUN/Creatinine Ratio (6-22) Glucose (80-110) mg/dL Lactate 1.4 (0.7-2.1) mmol/L Calcium (8.4-10.2) mg/dL Magnesium (1.6-2.3) mg/dL Total Bilirubin (0.2-1.3) mg/dL AST (17-59) IU/L ALT (<50) IU/L Alkaline Phosphatase (38-126) U/L Total Creatine Kinase (55-170) U/L CK-MB (CK-2) CK-MB (CK-2) Rel Index Troponin I (0.01-0.034) ng/mL Total Protein (6.3-8.2) g/dL Albumin (3.5-5.0) g/dL Globulin (1.7-4.1) g/dL Albumin/Globulin Ratio (1.0-2.8) Procalcitonin (<0.5) ng/mL Urine Color Yellow Urine Appearance Clear Urine pH 5.5 (4.5-8.0) Ur Specific [place] 1.015 (1.000-1.035) Urine Protein 1+ H (Negative) Urine Glucose (UA) Negative (Negative) g/dL Urine Ketones Trace H (NEGATIVE) Urine Occult Blood Negative (Negative) Urine Nitrate Negative (Negative) Urine Bilirubin Negative (NEGATIVE) Urine Urobilinogen 0.2 (0.2) E.U./dL Ur Leukocyte Esterase Trace H (NEGATIVE) Urine RBC 0-1/hpf (0-5/HPF) Urine WBC 0-1/hpf (0-5/HPF) Urine Bacteria None seen (None) Ur Culture Indicated? Specimen cultured COVID-19 PCR Negative (Negative) Imaging Data Chest x-ray: Radiologist's Impression: [address] [address] XRay Report Signed Patient: Yash Davila DMR#: [id number] : 5Acct:[id number] Age/Sex: 64 / MDate of Service: 10/14/19 Loc: ED Accession Number: [id number] Procedure: XR chest 1V Ordering Provider: Tomasa Crawford PROCEDURE: XR CHEST 1V INDICATIONS: SOb, dyspnea TECHNIQUE: One view of the chest was acquired. COMPARISON: [facility], CT, CT CHEST W CON, 08/22/2019, 9:50. [facility], CR, XR CHEST 2 VIEWS, 06/15/2019, 9:58. [facility], CT, CT CHEST WITH CONTRAST, 09/13/2019, 2:34. [facility], CR, XR CHEST 1V, 06/08/2019, 18:18. FINDINGS: Surgical changes and devices: There is a Port-A-Cath on the left with the tip in the brachiocephalic confluence. Lungs and pleura: A. air-fluid cavity seen in the right apex, unchanged, consistent with hydropneumothorax. Trace right basilar effusion is present. There is increased pulmonary markings bilaterally, unchanged. Mediastinum: Mediastinal contours appear normal. Heart size is normal. Bones and chest wall: No suspicious bony lesions. Overlying soft tissues appear unremarkable. IMPRESSION: Abnormal but stable chest x-ray with an air-fluid cavity in the right apex. Dictated by: Avelino Bernard M.D. on 10/14/2019 at 21:24 Approved by: Avelino Bernard M.D. on 10/14/2019 at 21:27 [facility] Narrative Medical decision making narrative: Received turned over. Review patient's history and physical in labs. Perform my own independent exam. Review the patient's note shows that he is a patient with COPD and lung cancer. Is on 3 L of oxygen at all times at home. Over the past several days/weeks patient states that he has had a productive cough what he states is purulent material. Review the patient's notes shows that approximately 1 month ago he was seen by oncology who recommended that he see a lung specialist. I initially did not have this information for evaluation however given the patient's symptoms with fever, hypoxia, increased oxygen demand, peer line productive cough, elevated white count with left shift there was concern that potentially he had an infection would need a bronchoscopy. I did discuss the case with [facility] who was able to provide a note from pulmonology from the end of last month. In that note is stated that they felt that bronchoscopy or other surgical intervention of his right upper lobe cavitary lesion would probably be unhelpful given his baseline medical status. According to that note he is indefinitely on Augmentin. There was also discussion of palliative care brought up in that visit. Feel that since pulmonology would be unlikely to perform a bronchoscopy that given the patient our facility is not warranted. I did discuss the case with TAJ Kidd the [facility] home provider who will admit the patient for further evaluation and treatment. Discharge Plan Departure Patient Disposition: Admitted As Inpatient Clinical Impression: COPD (chronic obstructive pulmonary disease) Qualifiers: COPD type: unspecified COPD Qualified Code(s): J44.9 - Chronic obstructive pulmonary disease, unspecified Lung cancer Qualifiers: Laterality: unspecified laterality Lung location: unspecified part of lung Qualified Code(s): C34.90 - Malignant neoplasm of unspecified part of unspecified bronchus or lung Pneumonia Qualifiers: Pneumonia type: due to unspecified organism Laterality: right Lung location: upper lobe of lung Qualified Code(s): J18.9 - Pneumonia, unspecified organism Discharge Date/Time: 10/15/19 00:44 Admit Date/Time: 10/15/19 00:18 Admit Provider: Jeannette Kidd
[2019-10-14] MEDS: methylPREDNISolone 125 MG/2 ML VIAL IV (20:26)
[2019-10-14 20:53] LABS: Add Manual Diff / Slide Review NO; Basophils Absolute Auto 100 /uL (0-100); Basophils Percent Auto 0.7 % (0-2); Eosinophils Absolute Auto 100 /uL (0-450); Eosinophils Percent Auto 0.6 % (2-4); Hematocrit 35.4 % (41-53); Hemoglobin 11.4 g/dL (13.5-17.5); Lymphocytes Absolute Auto 1100 /uL (1100-4500); Lymphocytes Percent Auto 6.2 % (25-40); Mean Corpuscular HGB Conc 32.3 % (30-36); Mean Corpuscular Hemoglobin 24.9 PG (26-34); Mean Corpuscular Volume 77.2 fL (80-100); Monocytes Absolute Auto 1000 /uL (0-900); Monocytes Percent Auto 5.7 % (3-14); Neutrophils Absolute Auto 15200 /uL (1500-7000); Neutrophils Percent Auto 86.8 % (50-75); Platelet Count 695 X10^3/uL (150-400); Red Blood Cell Count 4.58 X10^6/uL (4.5-5.9); Red Cell Distribution Width 16.8 % (11.6-14.8); White Blood Cell Count 17.5 X10^3/uL (4.5-11.0)
--- NOTE | 2019-10-14 20:56 | RT ---
Addendum entered by Blayne Wilkinson, 10/15/19 20:43: 10/14/[id number] Patient states he is a current smoker, about 1 pack/4 days, and doesn't want to discuss smoking cessation this admission. He adds that he has literature on the topic already at home. Jens Wilkinson, SANDRA Original Note: -10/14/20191936 EKG and evaluation performed on a patient who is in droplet isolation. VS: P 90/ RR 20 slightly labored with occasional weak and moist cough/ Saturation 98% on NC 2.5LPM. BS diminished and slightly coarse throughout, changing with cough. Patient states he is a user of two inhalers at home - a steroid and Albuterol analogue - and his friend will bring both in to him soon from home. He denies need for treatment at this time - he had a partial nebulizer per EMS per RN report. He has a fever, per nursing of about 100-degrees. Patient is obviously cachectic in appearance and has a chemo port in left anterior chest. He states he has cancer, and is a current smoker. Will delay further treatments until his meds arrive or he shows signs of need for same. Jens Wilkinson, SANDRA.
[2019-10-14] MEDS: SODIUM CHLORIDE 0.9% 1,000 ML 1000 ML IV (21:00)
[2019-10-14 21:03] LABS: Alanine Aminotransferase 19 IU/L (<50); Albumin 3.3 g/dL (3.5-5.0); Albumin Globulin Ratio 0.7 (1.0-2.8); Alkaline Phosphatase 114 U/L (38-126); Aspartate Aminotransferase 35 IU/L (17-59); BUN Creatinine Ratio 15.2 (6-22); Bilirubin Total 0.3 mg/dL (0.2-1.3); Blood Urea Nitrogen 14 mg/dL (9-20); Calcium 9.4 mg/dL (8.4-10.2); Carbon Dioxide 31 mmol/L (22-32); Chloride 100 mmol/L (98-107); Creatine Kinase 20 U/L (55-170); Estimated Glomerular Filt Rate > 60.0 mL/min (>60); Globulin 4.5 g/dL (1.7-4.1); Glucose 130 mg/dL (80-110); HEMOLYSIS < 15 (0-50); Magnesium 1.7 mg/dL (1.6-2.3); Potassium 3.5 mmol/L (3.4-5.1); Sodium 136 mmol/L (137-145); Total Protein 7.8 g/dL (6.3-8.2)
[2019-10-14 21:04] LABS: Lactate (Lactic Acid) 1.4 mmol/L (0.7-2.1)
--- NOTE | 2019-10-14 21:10 | PC.NURSE ---
Pt arrives via EMS for increasing shortness of breath worsening with exertion, productive cough and intermittent fevers for 4 days. Pt reports having an O2 sat of 80% on 3L NC prior to arrival pt received duoneb prior to arrival and reports dyspnea has resolved, pt O2 sat upon arrival is 98% on 3L NC. PT denies CP. Pt has history of COPD, GERD, cavitary lung lesion, pancreatitis, metastatic lung cancer, and DVT and right arm and reports he has been tested for COVID and with negative result. PT reports isolating at home with caregivers at side. .
[2019-10-14 21:15] LABS: Troponin I < 0.012 ng/mL (0.01-0.034)
[2019-10-14 21:26] LABS: Procalcitonin 0.24 ng/mL (<0.5)
[2019-10-14] MEDS: levoFLOXacin 750 MG/150 ML PIGGYBACK 100 MG IV (21:39)
[2019-10-14 21:55] LABS: Bacteria Urine None Seen
[2019-10-14 22:04] LABS: COVID19 -Nasal RAPID Negative (Negative)
[2019-10-14 22:13] LABS: Appearance Urine UA CLEAR; Bilirubin Urine UA NEGATIVE (NEGATIVE); Color Urine UA YELLOW; Glucose Urine UA NEGATIVE (Negative); Ketones Urine UA TRACE (NEGATIVE); Leukocyte Esterase Urine UA TRACE (NEGATIVE); Nitrite Urine UA NEGATIVE (Negative); Occult Blood Urine UA NEGATIVE (Negative); Protein Urine UA 1+ (Negative); Specific Gravity Urine UA 1.015 (1.000-1.035); Urobilinogen Urine UA 0.2 E.U./dL (0.2); pH Urine UA 5.5 (4.5-8.0)
[2019-10-14 22:14] LABS: Culture Indicated Urine Specimen Cultured; RBC Urine 0-1/HPF (0-5/HPF); WBC Urine 0-1/HPF (0-5/HPF)
[2019-10-15] VITALS (11 sets, daily range): BP systolic 93–117; BP diastolic 47–67; PULSE 49–74; RESP 16–30; TEMP 36.1–37.2; O2SAT 93–100; BMI 18.4; BMI 17.9
[2019-10-15] MEDS: OXYCODONE IR 10 MG TABLET 20 MG PO ×6 (01:19→22:37)
[2019-10-15] MEDS: SODIUM CHLORIDE 0.9% 1,000 ML 100 ML IV (01:22)
--- NOTE | 2019-10-15 01:34 | PM.HP.1 ---
History of Present Illness History of Present Illness Date Patient Seen: 10/15/19 Time Patient Seen: 01:35 Chief complaint: Shortness of Breath Narrative: Yash Davila is an unfortunate 64 y.o. male with home O2 dependent Stage IV lung cancer with a stable cavitary lesion of the right upper lobe, COPD, history of sepsis, DVT, orthostasis presents today with fever, , shortness of breath, hypoxia prior to presentation to the ED of the low 80s on 3 liters oxygen, rigors and chills. He states he has had on and off fevers for the past month. In the last several days he has been nauseated and vomiting overy the past 3-4 days. States he is constipated, urinating small amounts intermittently thoughout the day. He has had a productive cough, mostly green sputum and continues to have right sided chest pain that radiates to the left for which he takes oxycodone for. The patient continues to smoke a half to a quarter pack per day of cigarettes which is approximately half less than what he previously smoked. States continues to loose weight and is now down to 125 lbs. Actually weighed in at 55 kgs. He was previously admitted and then transferred to [facility] for bronchoscopy. He had a sputum sample that grew out fungus and the thought was that he would have a cavitary lesion biopsied or bronchoscopy to better delineate what the fluid was in that space. It was thought later to be contaminant and the bronchoscopy was not performed. At that time he was treated with short course of steroids and discharged on Augmentin, albuterol and fluticasone. He presented again to their ED on September 12 with worsening right chest and arm pain. The chest CT at that time indicated increased size of the cavitary lesion and an increased air-fluid level. It was thought that a process at T2-T3 appeared to be increasing in size and the patient returned to his oncologist Dr. Young who was concerned about recurrent malignancy. The patient states that they are wanting to have him undergo immunotherapy however that is being held up for insurance concerns. He was discharged with instructions to continue the Augmentin indefinitely and at the point the infection is ruled out they would refer him to thoracic surgery to consider endoscopic drainage. His inhaler was changed over to Advair and requested that he repeat a CT scan of his chest in December 2019 with follow-up in the pulmonary clinic. He was also recommended for palliative care referral. Chest x-ray findings of abnormal but stable chest x-ray with an air-fluid cavity in the right apex consistent with a right hydropneumothorax. T-max was 100? temperature upon arrival to the floor was 90.9, blood pressure 116/67, heart rate 66, respiratory rate 20, oxygen saturation of 96% on 2.5 L, the patient is 55 kilos with a BMI of 18.4. White count is elevated at 17.5, RBC 4.5 hemoglobin 11.4 hematocrit 35.4 platelet count 695, and a significant left shift, sodium 136, potassium 3.4, bicarb 100, CO2 31, creatinine 0.92, BUN 14, GFR is greater than 60, glucose 130, lactate normal at 1.4, calcium 9.4, magnesium 1.7, liver enzymes are normal, procalcitonin is 0.24, urine had trace leukocytes and COVID-19 was negative. Upon transport they gave him on nebulizer which increased his oxygenation to 90 +% on 3 L. ED started him on IV Levaquin and gave him a nebulizer. I reviewed multiple records from [facility] infectious Disease, Pulmonary and hospitalist service. Patient History Medical History COPD (chronic obstructive pulmonary disease) (Chronic) Depression (Acute) DVT of upper extremity (deep vein thrombosis) (Acute) GERD (gastroesophageal reflux disease) (Acute) Hypothyroid (Chronic) Lung cancer, primary, with metastasis from lung to other site (Chronic) PEG (percutaneous endoscopic gastrostomy) adjustment/replacement/removal (Acute) Peripheral neuropathy (Acute) Tobacco dependence (Acute) Surgical History History of lung biopsy (Acute) Family & Social History Family History Mother Congestive heart failure Father Unknown family medical history Social History: household members caregiver,other Prior Living Arrangements House Safety & Behavioral: Feels Safe in Current Yes Environment Been Physically Hurt or No Threatened By a Person Suicidal Ideation Description None Suicide Plan Description No Plan Tobacco & Substance use: Tobacco type cigarettes Smoking Status Current every day smoker alcohol intake former alcohol intake frequency holiday/special occasion Substance Use Type does not use Meds Home Medications and Allergies Home Medications Medication Instructions Recorded Confirmed Type albuterol sulfate [ProAir HFA] 1 puff INH Q6H 03/18/18 10/15/19 History ipratropium-albuterol 3 ml INH Q4HR PRN #40 ml 03/20/18 10/15/19 Rx sertraline [Zoloft] 75 mg PO DAILY 06/23/18 10/15/19 History levothyroxine 150 mcg PO DAILY #90 tab 04/11/19 10/15/19 Rx pregabalin [Lyrica] 50 mg PO TID #90 cap 04/11/19 10/15/19 Rx ceftriaxone in dextrose,iso-os 2 gm IV Q24H #7 ea 06/12/19 10/15/19 Rx alprazolam [Xanax] 0.5 mg PO BEDTIME PRN #2 tab 08/24/19 10/15/19 Rx tramadol 50 mg PO BID PRN #60 tab 08/24/19 10/15/19 Rx oxycodone 20 mg PO Q4H PRN #180 tab 09/18/19 10/15/19 Rx Allergies Allergy/AdvReac Type Severity Reaction Status Date / Time aspirin [ASPIRIN] AdvReac Mild NAUSEA Verified 09/01/19 14:15 Review of Systems Review of Systems ROS: Yes All systems reviewed with the patient and are negative except as otherwise documented Exam Vital Signs (past 8 hours): - 10/14/19 19:45 10/14/19 20:12 10/14/19 20:13 Temperature 100 F H Pulse Rate 101 H 99 H Respiratory Rate 29 H Blood Pressure 109/64 109/64 Pulse Oximetry 99 99 10/14/19 20:30 10/14/19 20:37 10/14/19 20:55 Temperature Pulse Rate 96 H 90 Respiratory Rate 34 H 20 20 Blood Pressure 112/63 Pulse Oximetry 99 98 98 10/14/19 21:00 10/14/19 21:30 10/14/19 22:00 Temperature Pulse Rate 92 H 79 78 Respiratory Rate 30 H 12 35 H Blood Pressure 106/57 L 108/59 L Pulse Oximetry 95 97 98 10/14/19 22:30 10/14/19 23:00 10/14/19 23:01 Temperature Pulse Rate 69 76 77 Respiratory Rate 18 40 H 41 H Blood Pressure 118/59 L 97/57 L Pulse Oximetry 98 98 98 10/14/19 23:30 10/15/19 00:00 10/15/19 00:30 Temperature Pulse Rate 62 70 63 Respiratory Rate 30 H 30 H 28 H Blood Pressure 134/67 116/62 117/62 Pulse Oximetry 100 99 99 10/15/19 00:41 Temperature 98.9 F Pulse Rate 71 Respiratory Rate 20 Blood Pressure 116/67 Pulse Oximetry 97 Oxygen Delivery Method Nasal Cannula Oxygen Flow Rate 3 Narrative Exam Narrative: Gen: Alert, oriented, very cachectic 64 y.o. male, appears comfortable HEENT: normocephalic, atraumatic, conjunctiva clear, sclera non-icteric, oral mucosa pink and moist Neck: supple, full ROM, no JVD, trachea is midline Resp: Lungs CTA, non-labored breathing CV: RRR, no murmur or rubs Abd: soft, non-tender, normoactive BTs Skin: Multiple tats, jaundiced appearing, port on left chest w/no s/s infection Neuro: Alert and oriented X 4 w/no focal deficits. Speech clear and coherent. Extremities: moves all 4 extremities, is ambulatory, negative Josefa?s sign Psyche: normal mood and affect. COVID-19 tested 10/15/2019 and is negative. Objective Labs Result Diagrams: 10/14/19 20:30 10/14/19 20:30 Labs: Laboratory Results - last 24 hr 10/14/19 10/14/19 10/14/19 20:30 20:30 20:30 WBC 17.5 H RBC 4.58 Hgb 11.4 L Hct 35.4 L MCV 77.2 L MCH 24.9 L MCHC 32.3 RDW 16.8 H Plt Count 695 H Neut % (Auto) 86.8 H Lymph % (Auto) 6.2 L [place] % (Auto) 5.7 Eos % (Auto) 0.6 L Baso % (Auto) 0.7 Neut # (Auto) 23164 H Lymph # (Auto) 1100 [place] # (Auto) 1000 H Eos # (Auto) 100 Baso # (Auto) 100 Sodium 136 L Potassium 3.5 Chloride 100 Carbon Dioxide 31 BUN 14 Creatinine 0.92 Estimated GFR > 60.0 BUN/Creatinine Ratio 15.2 Glucose 130 H Lactate Calcium 9.4 Magnesium 1.7 Total Bilirubin 0.3 AST 35 ALT 19 Alkaline Phosphatase 114 Total Creatine Kinase 20 L CK-MB (CK-2) TNP CK-MB (CK-2) Rel Index TNP Troponin I < 0.012 Total Protein 7.8 Albumin 3.3 L Globulin 4.5 H Albumin/Globulin Ratio 0.7 L Procalcitonin 0.24 Urine Color Urine Appearance Urine pH Ur Specific [place] Urine Protein Urine Glucose (UA) Urine Ketones Urine Occult Blood Urine Nitrate Urine Bilirubin Urine Urobilinogen Ur Leukocyte Esterase Urine RBC Urine WBC Urine Bacteria Ur Culture Indicated? COVID-19 PCR 10/14/19 10/14/19 10/14/19 20:30 20:55 21:50 WBC RBC Hgb Hct MCV MCH MCHC RDW Plt Count Neut % (Auto) Lymph % (Auto) [place] % (Auto) Eos % (Auto) Baso % (Auto) Neut # (Auto) Lymph # (Auto) [place] # (Auto) Eos # (Auto) Baso # (Auto) Sodium Potassium Chloride Carbon Dioxide BUN Creatinine Estimated GFR BUN/Creatinine Ratio Glucose Lactate 1.4 Calcium Magnesium Total Bilirubin AST ALT Alkaline Phosphatase Total Creatine Kinase CK-MB (CK-2) CK-MB (CK-2) Rel Index Troponin I Total Protein Albumin Globulin Albumin/Globulin Ratio Procalcitonin Urine Color Yellow Urine Appearance Clear Urine pH 5.5 Ur Specific [place] 1.015 Urine Protein 1+ H Urine Glucose (UA) Negative Urine Ketones Trace H Urine Occult Blood Negative Urine Nitrate Negative Urine Bilirubin Negative Urine Urobilinogen 0.2 Ur Leukocyte Esterase Trace H Urine RBC 0-1/hpf Urine WBC 0-1/hpf Urine Bacteria None seen Ur Culture Indicated? Specimen cultured COVID-19 PCR Negative Assessment & Plan Assessment & Plan narrative: Yash Davila is an unfortunate 64-year-old male patient who presents with acute on chronic respiratory failure with worsening difficulty breathing over the last 5 days with a his/emphysema, productive cough with yellow sputum. He presented with severe dyspnea, hypoxia, productive cough, pleuritic in nature with a known history of a right axillary DVT. 1. Acute hypoxic respiratory failure on chronic respiratory failure with emphysema, present on admission, active. -Patient describes shortness of breath worsening for months and has had a cough productive for green brown sputum for 1 month. -Previous sputum sample was thought to be an aspergillus fungus, but after review by infectous disease at [facility], was thought to be a contaminent -The patient presents with an elevated temperature 100?, elevated white count at 17.5 with a left shift, procalcitonin is 0.24, lactic acid is 1.4. -patient previously treated for a right upper lung abscess. -blood cultures obtained in ED -started azithromycin 500 mg daily for 3 days and levaquin 750 mg IV daily -once patient afebrile likely can transition him back to oral suppressive therapy with Augmentin 2. Right upper lobe cavitary lesion, present on admission, active -unchanged in appearance on current chest x-ray. He has previously had negative cultures on bronchoscopy end of April at [place]. -patient has had productive cough with yellow sputum for 1 month since having been taken off suppressive antibiotics. -will repeat a sputum culture. -started azithromycin 500 mg daily for 3 days and levaquin 750 mg IV -will monitor infectious markers. 3. Chronic right axillary DVT, present on admission, active -continuing right upper arm pain, Xarelto discontinued due to hemoptysis. -patient has previously tolerated Lovenox will restart Lovenox 1 milligram/kilogram once daily. -will monitor for complications of bleeding 4. Metastatic adenocarcinoma -chronic right chest pain due to rib metastases -Under the care of Dr. Thomas Young, apparently wishes to start immunotherapy -He was to have started Nivolumab on 09/21/2019, it is not known if this has been started and will have to confirm this -continue patient's oxycodone 20 mg q.4 hours as needed, continue Lyrica 50 mg t.i.d. 5. Acquired hypothyroidism, chronic, present on admission, stable. Will continue patient's current home regimen of levothyroxine 150 mcg daily. 6. Severe protein malnutrition with a bmi of 17.9 VTE prophylaxis: SCDs, prophylactic Lovenox. IV fluid: 100 cc/hour normal saline. Diet: High-protein regular diet, soft texture. The patient is admitted to the hospital due to the severity of his symptoms, risk of complications and adverse events. The patient is admitted as an inpatient with expected length of stay to be greater than 2 midnights. Code status: full code Quality VTE Deep Vein Thrombosis/Pulmonary Embolism Present on Admission: No
[2019-10-15] MEDS: NICOTINE 7 MG PATCH TOP ×2 (01:47→08:10)
--- NOTE | 2019-10-15 02:05 | PC.NURSE ---
Addendum entered by Mallorie Kay R.N. 10/15/19 03:37: Pt provided w/IS. Unable to effectively use due to pain/coughing. Only reached 500mL w/1 use. Original Note: A&Ox4, c/o of chest (muscloskeletal) pain related to cancer. Oxycodone 20mg given w/good results. Home O2 = 3L NC. Here, 2.5L, sats 97%. Fine crackles in bilateral bases. Pt reports BAIRD/SOB. Skin - multiple scattered abrasions throughout. Pt reports dog scratches. Pt reports significant recent weight loss = greater than 10 pounds. Nicotine patch applied L arm. Current smoker (5 cigarettes per day). L chest port -accessed. PIV L wrist. No dentition - pt requested soft diet. Pivoted w/SBA from stretcher to bed. Appears weak, but steady on feet. Pt open to flu vaccine. VSS, afebrile (was 102 degrees at home and 100 degrees in ED) NS running at 100ml/hr.
[2019-10-15] MEDS: TRAMADOL 50 MG TABLET PO (06:33)
[2019-10-15] MEDS: FLUTICASONE/SALMETEROL 250/50 60 PUFF DISKUS INH ×2 (08:09→21:46)
[2019-10-15] MEDS: SERTRALINE 50 MG TABLET 75 MG PO (08:11)
[2019-10-15] MEDS: ENOXAPARIN 40 MG/0.4 ML SYRINGE SUBCUT (08:11)
[2019-10-15] MEDS: predniSONE 20 MG TABLET 40 MG PO (08:11)
[2019-10-15] MEDS: LEVOTHYROXINE 150 MCG TABLET PO (08:11)
[2019-10-15] MEDS: PREGABALIN 50 MG CAPSULE PO ×3 (08:11→20:36)
--- NOTE | 2019-10-15 08:56 | P.EN_ITS ---
Event Note Date Patient Seen: 10/15/19 Event Note: Patient is a 64-year-old male well known to me from prior hospit alizations. He is here with acute on chronic respiratory failure. Patient has known along cancer with a pulmonary lesion that is increasing in size. He was followed at [facility] for this. In addition the patient is under the care of Dr. Young for oncology. He has been placed on oxycodone for his pain. He was referred to palliative care for further evaluation. This morning the patient reports he feels ?awful. He still is short of breath. He complains of pain involving the right elbow and palpable which has been present for a week. He feels that he is coughing up ?pus?. Examination reveals a cachectic male ill-appearing Lungs: Decreased breath sounds with scattered rhonchi bilaterally Cardiac exam: Regular rate and rhythm normal S1-S2 Abdomen: Soft and nontender Extremity no edema For today will Hep-Lock IV fluids given the cavitary lesion and the patient is able to drink Will continue IV Solu-Medrol given his complaints of shortness of breath Will follow-up with Dr. Young tomorrow regarding further treatment options versus comfort care
[2019-10-15] MEDS: NICOTINE 14 PATCH 14 MG TOP (09:33)
[2019-10-15] MEDS: MORPHINE 4 MG/ML INJ IV ×3 (11:02→20:36)
--- NOTE | 2019-10-15 14:17 | CM.DANOTE ---
Brief D/C Assessment: EMR reviewed: Patient is a 64 yr old male who is an inpatient with lung cancer and is being treated by oncology. CM/Rn met with patient at the bedside and explained role. Patient was alert and oriented x3 at time of CM visit. Patient was in a lot of pain so assessment meeting was brief. patient lives in [place] with live-in roommate/Caregiver. Dr. Mejias during AM rounds said she needs to talk to patients Oncologist prior to coming up with D/C plans. Once contacted plan will be worked on to determine if patient will need Hospice referral or not as well as if a SNF or home with caregiver and hospice is a choice. Patient stated he rather go to home with caregiver then a SNF but is open to discussion if needed. Patient currently is Independent at home with toileting grooming and eating but needs help with driving, groceries and food prep and transfers. I: [employer] options and [employer] Plan: D/C plan not determined yet pending MD conversation with oncology on wednesday. Hospice and home vs SNF. Mel Reynoso RN Discharge Planning/Care Management CM Discharge Assessment Start: 10/15/19 14:08 Freq: Status: Active Protocol: Document 10/15/19 14:09 HS (Rec: 10/15/19 14:17 [id number]) Discharge Planning Assessment Assigned Photo Lab Manager Mel Reynoso RN DPOA/Assigned Designee Name Lakisha Cabral (friend) Contact Information [phone] Advance Directives? Yes: POLST Advance Directives on File Yes: dated August 27: CPR Full Treatment/Medical Intervenitons History Provided By Patient,Medical Record Has Patient been admitted in last 30 No days? Prior Living Arrangements House Household Members caregiver,other Type of transporation used prior to Relies on Others admit Independent with ADL's No: has help from caregiver for shopping and meal prep Is patient alert and oriented? Yes Needs Assistance With Meal Prep,Home Chores / Shopping Caregiver for Another No Comment patient is an oncology patient . DME Already Rented / Owned FWW / Walker,Cane Comment 2 canes and 4ww prn Patient/Family Preference Home with Home Health Comment patient may need hospice referral pending MD conversation with oncologist wednesday- If patient doesn't want SNF the HH referral maybe needed until hospice can start. Comment Reviewed chart. Pt presents w/ SOB and was admitted to the hospital with droplet precautions for acute hypoxic respiratory failure, hypokalemia. COVID-19 r/o Pt lives at home w/family, has peg tube, h/o Metastatic adenocarcinoma. nursing notes indicate pt has developed involuntary torso and UE movements, Dr Ham made aware D/t pt's droplet precaution/ COVID-19 r/o, and no immediate need from this HISTORIAN RESEARCH ASSISTANT for DC planning, stayed out of pt's room today, will plan to assess further as soon as is appropriate. Discharge Plan Home Community Services Oxygen Therapy Transportation Arrangement family Additional Comment Pending further assessment of DC needs Whiteboard Updated in Patient Room with Yes name and ext. # of Photo Lab Manager Review Status In Process Next Review Type Continued Stay Review
[2019-10-15] MEDS: levoFLOXacin 250 MG TABLET 750 MG PO (20:37)
[2019-10-15] MEDS: SODIUM CHLORIDE 0.9% FLUSH 10 ML IV (21:56)
[2019-10-16] VITALS (14 sets, daily range): BP systolic 98–118; BP diastolic 50–64; PULSE 51–66; RESP 16–20; TEMP 36.1–36.9; O2SAT 95–100
[2019-10-16] MEDS: MORPHINE 4 MG/ML INJ IV ×6 (00:37→20:30)
[2019-10-16] MEDS: SODIUM CHLORIDE 0.9% FLUSH 10 ML IV ×7 (00:38→20:31)
[2019-10-16] MEDS: OXYCODONE IR 10 MG TABLET 20 MG PO ×6 (02:10→22:33)
--- NOTE | 2019-10-16 05:22 | PC.NURSE ---
Patient ate well this shift. Wanted a snack, asked for sandwich, ice cream, cookies, and apple juice. Consumed all. Doing round the clock prn medication, alternating morphine IV with percolone. Patient has not slept tonight despite distractions, interventions, medications.
[2019-10-16] MEDS: LEVOTHYROXINE 150 MCG TABLET PO (06:05)
[2019-10-16 06:10] LABS: Add Manual Diff / Slide Review NO; Basophils Absolute Auto 0 /uL (0-100); Basophils Percent Auto 0.3 % (0-2); Eosinophils Absolute Auto 0 /uL (0-450); Hematocrit 30.4 % (41-53); Hemoglobin 9.8 g/dL (13.5-17.5); Lymphocytes Absolute Auto 600 /uL (1100-4500); Lymphocytes Percent Auto 3.4 % (25-40); Mean Corpuscular HGB Conc 32.1 % (30-36); Mean Corpuscular Hemoglobin 24.7 PG (26-34); Mean Corpuscular Volume 76.9 fL (80-100); Monocytes Absolute Auto 600 /uL (0-900); Monocytes Percent Auto 3.2 % (3-14); Neutrophils Absolute Auto 16100 /uL (1500-7000); Neutrophils Percent Auto 93.1 % (50-75); Platelet Count 574 X10^3/uL (150-400); Red Blood Cell Count 3.95 X10^6/uL (4.5-5.9); Red Cell Distribution Width 16.1 % (11.6-14.8); White Blood Cell Count 17.3 X10^3/uL (4.5-11.0)
[2019-10-16 06:18] LABS: BUN Creatinine Ratio 27.3 (6-22); Blood Urea Nitrogen 21 mg/dL (9-20); Calcium 9.2 mg/dL (8.4-10.2); Carbon Dioxide 32 mmol/L (22-32); Chloride 102 mmol/L (98-107); Estimated Glomerular Filt Rate > 60.0 mL/min (>60); Glucose 139 mg/dL (80-110); HEMOLYSIS < 15 (0-50); Potassium 4.1 mmol/L (3.4-5.1); Sodium 137 mmol/L (137-145)
--- NOTE | 2019-10-16 06:27 | PC.NURSE ---
Patient c/o right shoulder pain. He feels like it is bone pain.
[2019-10-16] MEDS: FLUTICASONE/SALMETEROL 250/50 60 PUFF DISKUS INH ×2 (07:19→21:39)
[2019-10-16] MEDS: ACETAMINOPHEN 325 MG TABLET 650 MG PO ×2 (08:29→14:42)
[2019-10-16] MEDS: PREGABALIN 50 MG CAPSULE PO ×3 (08:29→20:30)
[2019-10-16] MEDS: ENOXAPARIN 40 MG/0.4 ML SYRINGE SUBCUT (08:29)
[2019-10-16] MEDS: SERTRALINE 50 MG TABLET 75 MG PO (08:29)
[2019-10-16] MEDS: NICOTINE 14 PATCH 14 MG TOP (08:29)
--- NOTE | 2019-10-16 13:07 | P.PN_ITS ---
Subjective Subjective Date Patient Seen: 10/16/19 Interval history: The patient is a 64-year-old male with a history of a left cavitary lesion, known adenocarcinoma who has completed chemotherapy currently awaiting immunotherapy who presented to the hospital with increasing shortness of breath. Patient has a chronic left cavitary lesion. He was started on IV antibiotics for treatment of probable community-acquired pneumonia. In addition the patient has known COPD, he had steroids added to his regimen. He also has significant pain of the right chest related to his underlying cancer and is being treated with pain medications for that. His oxygenation is improved today. He is 100% on 3 L. he continues to have a productive cough. Patient states he continues to feel poorly despite antibiotics, fluids, and steroids. Exam Vital Signs (past 8 hours): - 10/16/19 06:29 10/16/19 07:23 10/16/19 08:00 Temperature 97.3 F L Pulse Rate 66 57 L Respiratory Rate 20 16 Blood Pressure 101/56 L Pulse Oximetry 99 99 99 10/16/19 10:19 10/16/19 11:33 10/16/19 12:53 Temperature Pulse Rate 56 L 54 L Respiratory Rate Blood Pressure Pulse Oximetry 100 100 98 Oxygen Delivery Method Nasal Cannula Oxygen Flow Rate 2.5 Narrative Exam Narrative: emaciated cachectic ill-appearing male Lungs: Decreased breath sounds with scattered rhonchi bilaterally Cardiac exam: Regular rate and rhythm normal S1-S2 Abdomen: Soft nontender nondistended Extremities: No edema Skin exam multiple tattoos on his back and chest Objective Labs Result Diagrams: 10/16/19 06:00 10/16/19 06:00 Labs: Laboratory Results - last 24 hr 10/16/19 10/16/19 06:00 06:00 WBC 17.3 H RBC 3.95 L Hgb 9.8 L Hct 30.4 L MCV 76.9 L MCH 24.7 L MCHC 32.1 RDW 16.1 H Plt Count 574 H Neut % (Auto) 93.1 H Lymph % (Auto) 3.4 L [place] % (Auto) 3.2 Eos % (Auto) 0.0 L Baso % (Auto) 0.3 Neut # (Auto) 55081 H Lymph # (Auto) 600 L [place] # (Auto) 600 Eos # (Auto) 0 Baso # (Auto) 0 Sodium 137 Potassium 4.1 Chloride 102 Carbon Dioxide 32 BUN 21 H Creatinine 0.77 Estimated GFR > 60.0 BUN/Creatinine Ratio 27.3 H Glucose 139 H Calcium 9.2 Assessment & Plan Assessment & Plan narrative: Acute on Chronic hypoxic respiratory failure, present on admission, active. - -suspect probable Community acquired pneumonia, present on admission -patient with productive sputum, fever to 100, an elevated white count in addition to shortness of breath -patient initially started on IV levofloxacin and azithromycin but switched to levofloxacin alone -will continue IV steroids for probable emphysema contributing 2. Right upper lobe cavitary lesion, present on admission, active -unchanged in appearance on current chest x-ray. He has previously had negative cultures on bronchoscopy end of April at [place]. -patient has had productive cough with yellow sputum for 1 month since having been taken off suppressive antibiotics. -will repeat a sputum culture. -continue IV levofloxacin -will monitor infectious markers. 3. Chronic right axillary DVT, present on admission, active -continuing right upper arm pain, Xarelto discontinued due to hemoptysis. -patient has previously tolerated Lovenox will restart Lovenox 1 mi lligram/kilogram once daily. -will monitor for complications of bleeding 4. Metastatic adenocarcinoma -chronic right chest pain due to rib metastases -Under the care of Dr. Thomas Young, apparently wishes to start immunotherapy -He was to have started Nivolumab on 09/21/2019, it is not known if this has been started and will have to confirm this -continue patient's oxycodone 20 mg q.4 hours as needed, continue Lyrica 50 mg t.i.d. -will discuss with Dr. Young further treatment. Patient scheduled to start immunotherapy. He also was referred to palliative care. 5. Acquired hypothyroidism, chronic, present on admission, stable. Will continue patient's current home regimen of levothyroxine 150 mcg daily. 6. Severe protein malnutrition with a bmi of 17.9 Quality VTE Deep Vein Thrombosis/Pulmonary Embolism Present on Admission: No
--- NOTE | 2019-10-16 13:11 | DIET.PN ---
Dietary Progress Note Assessment: is a 64 y.o. male with home O2 dependent Stage IV lung cancer, COPD, history of sepsis, DVT, who presented 10/15/19 with fever, shortness of breath, hypoxia prior to presentation to the ED. He has been nauseated and vomiting over the past 3-4 days. Reports he is constipated, urinating small amounts intermittently thoughout the day. The patient continues to smoke a quarter to half pack per day of cigarettes. Reports continued weight loss and decrease in intake although states his appetite is good today. HT: 175.26cm WT: 55kg UBW: 64kg BMI: 17.9 (underweight) Labs: O2: 53 BUN: 21 MNA: 6 Brian: 20 Nutrition Diagnosis: Severe chronic PCM r/t causes increasing nutrient needs duet to illness aeb reports energy intake <75% EER > 1mo, GI symptoms (n/v) past 3-4 days, weight loss 13.5% in 5 mo, BMI 17.9, NFPE subcutaneous fat loss of triceps, tmporalis, clavicle, shoulder muscle wasting. Interventions: 1. Reviewed high calorie/high protein nutrition therapy including small frequent meals, protein with each meal, nutrient rich calorie dense food sources. Provided food list. 2. ONS enure enlive BID. Patient agreeable. Diet Order: General, mech soft (easy chew) EER: [id number] shannan (30-33cal/kg for weight gain); 82g protein (1.5g/kg malnutr) Monitoring/Evaluations: weight, PO intake, ONS acceptance
[2019-10-16] MEDS: levoFLOXacin 250 MG TABLET 750 MG PO (20:30)
[2019-10-17] VITALS (12 sets, daily range): BP systolic 90–122; BP diastolic 43–62; PULSE 54–71; RESP 16–20; TEMP 36.1–36.8; O2SAT 94–100
[2019-10-17] MEDS: MORPHINE 4 MG/ML INJ IV ×6 (00:31→23:48)
[2019-10-17] MEDS: OXYCODONE IR 10 MG TABLET 20 MG PO ×6 (02:26→23:42)
[2019-10-17] MEDS: SODIUM CHLORIDE 0.9% FLUSH 10 ML IV ×3 (04:29→21:14)
[2019-10-17] MEDS: LEVOTHYROXINE 150 MCG TABLET PO (06:25)
[2019-10-17] MEDS: ENOXAPARIN 40 MG/0.4 ML SYRINGE SUBCUT (08:24)
[2019-10-17] MEDS: TRAMADOL 50 MG TABLET PO (08:24)
[2019-10-17] MEDS: ACETAMINOPHEN 325 MG TABLET 650 MG PO (08:24)
[2019-10-17] MEDS: NICOTINE 14 PATCH 14 MG TOP (08:25)
[2019-10-17] MEDS: SERTRALINE 50 MG TABLET 75 MG PO (08:25)
[2019-10-17] MEDS: PREGABALIN 50 MG CAPSULE PO ×3 (08:29→21:10)
[2019-10-17] MEDS: FLUTICASONE/SALMETEROL 250/50 60 PUFF DISKUS INH ×2 (08:40→20:21)
--- NOTE | 2019-10-17 09:37 | P.PN_ITS ---
Subjective Subjective Date Patient Seen: 10/17/19 Time Patient Seen: 09:38 Interval history: The patient is a 64-year-old male with a history of a left cavitary lesion, known adenocarcinoma who has completed chemotherapy currently awaiting immunotherapy who presented to the hospital with increasing shortness of breath. He is seen for follow-up today. He has been receiving antibiotics for presumed pneumonia. He feels slightly better today with improving cough. He does complain of a soreness in his right chest with continued cough, but denies any left-sided chest pain, nausea, vomiting. He has a component of chronic respiratory failure and does require oxygen at home at baseline. He has not been up and ambulating while he has been here in and ordered for physical therapy today. Exam Vital Signs (past 8 hours): - 10/17/19 02:39 10/17/19 08:33 10/17/19 08:51 Temperature 97.7 F 97.4 F L Pulse Rate 64 55 L 65 Respiratory Rate 18 16 20 Blood Pressure 122/62 101/57 L Pulse Oximetry 98 98 98 Oxygen Delivery Method Nasal Cannula Oxygen Flow Rate 2 Narrative Exam Narrative: GENERAL APPEARANCE: Chronically ill-appearing, near cachectic, male in no acute distress. SKIN: Inspection of the skin reveals no rashes, ulcerations or petechiae. HEENT: Normocephalic atraumatic, extraocular muscles are intact, oropharynx is clear and mucous membranes are moist, neck is supple without adenopathy NECK: Supple and symmetric. There was no thyroid enlargement, no tenderness. CHEST: Normal AP diameter and normal contour without any kyphoscoliosis. Left- sided Port-A-Cath without erythema or induration. LUNGS: Auscultation of the lungs revealed no wheezes, rhonchi, or rales. CARDIOVASCULAR: There was a regular rate and rhythm without any murmurs, gallops, rubs. Peripheral pulses were 2+ and symmetric. ABDOMEN: Soft and nontender with normal bowel sounds. No ascites was noted. MUSCULOSKELETAL: There was no tenderness or effusions noted. Muscle strength and tone were normal. EXTREMITIES: No cyanosis, clubbing or edema. NEUROLOGIC: Alert and oriented x 3. Normal affect. Strength is +5/5 in the Upper Extremities and Lower Extremities Bilaterally. Objective Labs Result Diagrams: 10/16/19 06:00 10/16/19 06:00 Assessment & Plan Assessment & Plan narrative: The patient is a 64-year-old male with a history of a left cavitary lesion, known adenocarcinoma who has completed chemotherapy currently awaiting immunotherapy who presented to the hospital with acute on chronic respiratory failure secondary to likely pnuemonia and COPD exacerbation. He is beginning to improve slightly as far as his breathing, but he continues to have dyspnea with minimal activity worse than his baseline. He will start PT today, continue antibiotics and transition to oral steroids today. 1. Acute on Chronic hypoxic respiratory failure, present on admission, improved -suspect Community acquired pneumonia with likely combined COPD exacerbation -patient with productive sputum, fever to 100, an elevated white count in addition to shortness of breath -patient initially started on IV levofloxacin and azithromycin but switched to oral levofloxacin alone -started on IV steroids, will change to prednisone today for continued steroid taper for treatment of possible COPD exacerbation -patient uses 3L home o2 at baseline, appears near baseline at rest but has not ambulated since arrival. Work with PT today and continue to add supplemental O2 as needed to maintain O2 between between 88-96%. 2. COPD with exacerbation, acute on chronic, present on admission - treatment as noted above 3. Community acquired pneumonia, acute, present on admission. - continue levaquin as noted above. 4. Right upper lobe cavitary lesion, present on admission, active -unchanged in appearance on current chest x-ray. He has previously had negative cultures on bronchoscopy end of April at [place]. -patient has had productive cough with yellow sputum for 1 month since having been taken off suppressive antibiotics. -will repeat a sputum culture. -continue IV levofloxacin -will monitor infectious markers. 5. Chronic right axillary DVT, present on admission, active -continuing right upper arm pain, Xarelto discontinued due to hemoptysis. -patient has previously tolerated Lovenox will restart Lovenox 1 milligram/kilogram once daily. -will monitor for complications of bleeding 6. Metastatic adenocarcinoma -chronic right chest pain due to rib metastases -Under the care of Dr. Thomas Young, apparently wishes to start immunotherapy -He was to have started Nivolumab on 09/21/2019, it is not known if this has been started and will have to confirm this -complained of uncontrolled pain in his R chest. Will start oxycodone 40 mg ER tonight to see if helps with pain control. Continue current prn 20 mg oxycodone IR. -further outpatient immunotherapy per Dr. Kidd. He also was referred to palliative care. 7. Acquired hypothyroidism, chronic, present on admission, stable. Will continue patient's current home regimen of levothyroxine 150 mcg daily. 8. 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 PT eval today. Likely discharge home with home health in the next 24 - 48 hours. DVT: Lovenox daily. COVID-19 COVID-19 status: Negative Result date/Date tested (Pos, Neg/Pending): 10/14/19 Quality VTE Deep Vein Thrombosis/Pulmonary Embolism Present on Admission: No
--- NOTE | 2019-10-17 15:21 | CM.DPC ---
DCP/continued: Reviewed chart. Per Dr. Mejias's progress note dated 10-16-19 Oncology/Dr. Young and patient would like to continue treatment for stage IV Lung CA. Dr. Ham treating patient for pneumonia. PT evaluation ordered today. P: CM team to continue to follow and check back in on 10-18-19 for d/c planning needs. JOSH Ramey
--- NOTE | 2019-10-17 15:45 | PT.IIE ---
Current Diagnoses Acute and chronic respiratory failure with hypoxia (10/15/19) Surgical History (Last Reviewed 10/15/19 @ 01:59 by GEORGE Reddy) History of lung biopsy (Acute) Medical History (Last Reviewed 10/15/19 @ 01:59 by GEORGE Reddy) COPD (chronic obstructive pulmonary disease) (Chronic) Depression (Acute) DVT of upper extremity (deep vein thrombosis) (Acute) GERD (gastroesophageal reflux disease) (Acute) Hypothyroid (Chronic) Lung cancer, primary, with metastasis from lung to other site (Chronic) PEG (percutaneous endoscopic gastrostomy) adjustment/replacement/removal (Acute) Peripheral neuropathy (Acute) Tobacco dependence (Acute) Physical Therapy Inpatient Evaluation/Re-Eval M1 PT/OT-IP Prior Functional Status Start: 10/17/19 14:30 Freq: NEEDED Status: Active Protocol: Document 10/17/19 15:21 (Rec: 10/17/19 15:45 [email or web address]) Medical Review Prior Functional Status Medical History Reviewed Yes Diet/Fluid Consistency Regular Communication able to make needs known. no deficits noted Mobility and Gait Pt was home bound and has very low activtiy tolerance. He was only able to cachorro walk distance from bed to bathroom without using AD. Activities of Daily Living and IADL's He was only able to cachorro walk distance from bed to bathroom without using AD. He only use bed bath as well and his CG assisted him for groceries, cooking driving and transfers. Prior Functional Level (Other details) Pt is a current smoker and smoke quater of a pack a day. He has been smoking since he was 12. Social History Household Members spouse,caregiver,other Living Arrangements House Number of Floors (Floors) One Floor Number of Stairs To Enter/Railing? 1 MATHEUS to porch without rails then 4STE to yard for his trailer Home Environment Standard Height Toilet,Walk in Shower,Built-In Shower Seat Home Equipment Front Wheel Walker,Straight Cane Employment Status Retired Additional Social History Comment Pt lives with his and a CG in [facility]. He also uses O2 at home d/t his poor cardiovascular condition. Pt has a hx of a left cavitary lesion, known stage IV adenocarcinoma who has completed chemotherapy currently awaiting immunotherapy. M2 PT-IP Current Condition Start: 10/17/19 14:30 Freq: NEEDED Status: Active Protocol: Document 10/17/19 15:21 (Rec: 10/17/19 15:45 [email or web address]) Physical Therapy Current Condition Current Condition Evaluation Date 10/17/19 Treatment Diagnosis acute on chronic respiratory failure, Metastatic adenocarcinoma, weakness Onset Date 10/14/19 Weight Bearing Status Weight Bearing Status Full Weight Bearing M3 PT-IP Subjective Start: 10/17/19 14:30 Freq: NEEDED Status: Active Protocol: Document 10/17/19 15:21 (Rec: 10/17/19 15:45 [email or web address]) Subjective Physical Therapy Visit Type Type Initial Evaluation Visit Start Time 14:45 Visit Stop Time 15:16 Total Visit Minutes 31 Notes Nursing staff reports has been having hypotension and bed bound. Number of SCOOP FILLER Visits 0 Physical Therapy Visit Comments Patient Comments Im doing alright Therapy Pain Assessment Pain Present Pain Present Denied Pain M4 PT-IP Mobility and Gait Start: 10/17/19 14:30 Freq: NEEDED Status: Active Protocol: Document 10/17/19 15:21 (Rec: 10/17/19 15:45 [email or web address]) PT-Bed Mobility Assessment Rolling Type of Rolling Roll to Right Level of Assist Standby Assistance Supine to Sit Supine to Sit Standby Assistance PT-Transfer Assessment Comments Mobility Comments Pt was in bed upon PT arrival. BP at 103/67 with SpO2 96% with 2L NC. Agreed to mobilize with PT. Pt initially rolled to his R side and pushed up from sidelying position to sit at EOB. He then started continous productive cough for approximately 6-8 minutes. 2 Blue emesis bags were provided . Noticed pt has significant amount of yellow sputum and he did state that this is very hard on him once he sat up. His O2 went down to 88-90%. Pt requested to return to supine and he was able to complete with SBA. Pt's SpO2 went back to >95% and his coughing symptoms subsided. Bed activated and call ligth placed within reach. Notified ALISE Medina of pt's condition. Stair Climbing Assessment Comments Stair Climbing Comments unable to assess PT-Balance Assessment Comments Other Balance Tests/Deviations/Treatment unable to assess : M5 PT-IP Objective Assessments Start: 10/17/19 14:30 Freq: NEEDED Status: Active Protocol: Document 10/17/19 15:21 (Rec: 10/17/19 15:45 [email or web address]) Orientation Orientation/Cognition Level of Alertness Alert Orientation Name,Age,Birthday,Month,Date, Year,Day of Week,Place, Situation Language Function Ability No Deficits Noted Safety Awareness Understands Safety Issues Memory Description No Deficits Noted Gross Range of Motion Upper Extremity ROM Assessment Within Functional Limits Lower Extremity ROM Assessment Within Functional Limits Strength Upper Extremity Strength Assessment Within Functional Limits Lower Extremity Strength Assessment Within Functional Limits Coordination Assessment Gross Coordination Gross Coordination WNL Sensation Assessment Sensation Gross Sensation WNL M7 PT-IP Assessment and Plan Start: 10/17/19 14:30 Freq: NEEDED Status: Active Protocol: Document 10/17/19 15:21 (Rec: 10/17/19 15:45 [email or web address]) PT Summary Assessment and Plan Potential Rehabilitation Potential Good Status of Condition at Evaluation Unstable Summary Impairments Pain,ROM,Strength,Balance,Bed Mobility,Transfers,Gait, Activity Tolerance Assessment Summary This is a high complexity for this 64yo gentleman who admitted to d/t acute on chronic respiratory failure secondary to likely pnuemonia and COPD exacerbation. Pt also has a history of a left cavitary lesion, known adenocarcinoma who has completed chemotherapy currently awaiting immunotherapy. Upon assessment , pt has very low activity tolerance who was only able to sit at edge of bed with productive cough with yellow sputum noted. Pt got very fatigue and started desating after his continuous cough. He then requested to lay down and his symptoms began to stabilize. In my professional opinion, pt will need extensive skilled care d/t the extent of his complicated medical conditions. Hospice will be ideal as well by considering pt's quality of life versus agressive treatment. Goals Bed Mobility Goal Moderate Assistance Transfer Goal Moderate Assistance Gait Goal Moderate Assistance Gait Distance 15 Other Goals 5 steps with FWW/SPRAYER INSECTICIDE Days to Meet Goals 10 Frequency of Treatment Frequency Of Treatment Once a Day Treatment Plan Physical Therapy Treatment Plan Bed Mobility Training,Transfer Training,Gait Training, Therapeutic Exercise,Balance Retraining,Discharge Planning Other Recommendations and Next Treatment monitor vital signs Focus transfer, mboility training pursed lip breathing. Recommendations To Nursing Amount of Assist Needed 1 Person Assist Discharge Recommendations PT Discharge Recommendations SNF Rehab Other Discharge Recommendations pt will need extensive skilled care d/t the extent of his complicated medical conditions . Hospice will be ideal as well by considering pt's quality of life versus agressive treatment. Transportation Needs at Discharge Wheelchair/Cabulance
[2019-10-17] MEDS: OXYCODONE ER 10 MG TAB 40 MG PO (21:10)
[2019-10-17] MEDS: levoFLOXacin 250 MG TABLET 750 MG PO (21:11)
[2019-10-18] VITALS (10 sets, daily range): BP systolic 97–121; BP diastolic 51–64; PULSE 61–82; RESP 17–21; TEMP 36.2–36.8; O2SAT 92–100
[2019-10-18] MEDS: OXYCODONE IR 10 MG TABLET 20 MG PO ×5 (04:45→23:31)
[2019-10-18] MEDS: MORPHINE 4 MG/ML INJ IV ×6 (04:47→23:34)
[2019-10-18] MEDS: LEVOTHYROXINE 150 MCG TABLET PO (06:20)
[2019-10-18] MEDS: FLUTICASONE/SALMETEROL 250/50 60 PUFF DISKUS INH ×2 (09:01→20:52)
[2019-10-18] MEDS: SODIUM CHLORIDE 0.9% FLUSH 10 ML IV ×3 (09:04→20:54)
[2019-10-18] MEDS: OXYCODONE ER 10 MG TAB 40 MG PO ×2 (09:07→20:54)
[2019-10-18] MEDS: predniSONE 20 MG TABLET 40 MG PO (09:08)
[2019-10-18] MEDS: fentaNYL 50 MCG/PATCH TOP (09:08)
[2019-10-18] MEDS: ENOXAPARIN 40 MG/0.4 ML SYRINGE SUBCUT (09:08)
[2019-10-18] MEDS: NICOTINE 14 PATCH 14 MG TOP (09:08)
[2019-10-18] MEDS: SERTRALINE 50 MG TABLET 75 MG PO (09:09)
[2019-10-18] MEDS: PREGABALIN 50 MG CAPSULE PO ×3 (09:09→20:54)
--- NOTE | 2019-10-18 10:13 | PM.PN.1 ---
Subjective Subjective Date Patient Seen: 10/18/19 Time Patient Seen: 11:15 Interval history: The patient is a 64-year-old male with a history of a left cavitary lesion, known adenocarcinoma who has completed chemotherapy currently awaiting immunotherapy who presented to the hospital with increasing shortness of breath. He is seen for follow-up today. He has been receiving antibiotics for presumed pneumonia. He still feels profoundly weak and complains of right-sided chest pain which is chronic. Weakness is somewhat worsened than his baseline. His respiratory status is markedly improved. There is also significant amount of chronic pain which has been poorly controlled. Attempted yesterday to add extended release oxycodone, however this did not add much improvement to the patient pain control. He states he was previously on fentanyl, up to 300 on patches, but has not had this recently. Will restart fentanyl patch at 50 mcg to see if there is added benefit and continue to titrate up. He was seen by Physical therapy and recommended for chcf, which we are looking into today as a possible discharge option. Exam Vital Signs (past 8 hours): - 10/18/19 05:08 10/18/19 07:19 10/18/19 08:25 Temperature 97.7 F 97.3 F L Pulse Rate 64 61 Respiratory Rate 18 21 Blood Pressure 121/62 97/51 L Pulse Oximetry 99 100 93 10/18/19 09:15 Temperature Pulse Rate Respiratory Rate Blood Pressure Pulse Oximetry 92 Oxygen Delivery Method Nasal Cannula Oxygen Flow Rate 1 Narrative Exam Narrative: GENERAL APPEARANCE: Chronically ill-appearing, near cachectic, male in no acute distress. SKIN: Inspection of the skin reveals no rashes, ulcerations or petechiae. HEENT: Normocephalic atraumatic, extraocular muscles are intact, oropharynx is clear and mucous membranes are moist, neck is supple without adenopathy NECK: Supple and symmetric. There was no thyroid enlargement, no tenderness. CHEST: Normal AP diameter and normal contour without any kyphoscoliosis. Left-sided Port-A-Cath without erythema or induration. LUNGS: Auscultation of the lungs revealed no wheezes, rhonchi, or rales. Diminished air movement R side. Shallow inspirations limited by pain. CARDIOVASCULAR: There was a regular rate and rhythm without any murmurs, gallops, rubs. Peripheral pulses were 2+ and symmetric. ABDOMEN: Soft and nontender with normal bowel sounds. No ascites was noted. MUSCULOSKELETAL: There was no tenderness or effusions noted. Muscle strength and tone were normal. EXTREMITIES: No cyanosis, clubbing or edema. NEUROLOGIC: Alert and oriented x 3. Normal affect. Strength is +5/5 in the Upper Extremities and Lower Extremities Bilaterally. Objective Labs Result Diagrams: 10/16/19 06:00 10/16/19 06:00 Assessment & Plan Assessment & Plan narrative: The patient is a 64-year-old male with a history of a left cavitary lesion, known adenocarcinoma who has completed chemotherapy currently awaiting immunotherapy who presented to the hospital with acute on chronic respiratory failure secondary to likely pnuemonia and COPD exacerbation. He is beginning to improve slightly as far as his breathing, but he continues to have dyspnea with minimal activity worse than his baseline. He continues to improve but will attempt for chcf placement starting today. 1. Acute on Chronic hypoxic respiratory failure, present on admission, resolved -suspect Community acquired pneumonia with likely combined COPD exacerbation -patient with productive sputum, fever to 100, an elevated white count in addition to shortness of breath -patient initially started on IV levofloxacin and azithromycin but switched to oral levofloxacin alone plan for 7 day total course. -started on IV steroids, changed yesterday to oral prednisone for continued steroid taper for treatment of possible COPD exacerbation -patient uses 3L home o2 at baseline, appears near baseline at rest. Continue to add supplemental O2 as needed to maintain O2 between between 88-96%. 2. COPD with exacerbation, acute on chronic, present on admission - treatment as noted above 3. Community acquired pneumonia, acute, present on admission. - continue levaquin as noted above. 4. Right upper lobe cavitary lesion, present on admission, active -unchanged in appearance on current chest x-ray. He has previously had negative cultures on bronchoscopy end of April at [facility]. -patient has had productive cough with yellow sputum for 1 month since having been taken off suppressive antibiotics. -repeat sputum culture showed mixed resident ainket. -Continue levaquin as noted above. 5. Chronic right axillary DVT, present on admission, active -continuing right upper arm pain, Xarelto discontinued due to hemoptysis. -patient has previously tolerated Lovenox, started on prophylactic lovenox will increase to BID 1mg / kg dosing for therapeutic dosing given no signs of bleeding. -will monitor for complications of bleeding 6. Metastatic adenocarcinoma -chronic right chest pain due to rib metastases -Under the care of Dr. Thomas Young, apparently wishes to start immunotherapy -He was to have started Nivolumab on 09/21/2019, it is not known if this has been started and will have to confirm this -complained of uncontrolled pain in his R chest. Will start oxycodone 40 mg ER tonight to see if helps with pain control. Continue current prn 20 mg oxycodone IR. -further outpatient immunotherapy per Dr. Kidd. He also was referred to palliative care. 7. Acquired hypothyroidism, chronic, present on admission, stable. Will continue patient's current home regimen of levothyroxine 150 mcg daily. 8. 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 PT recommending SNF which will look into options today. DVT: Lovenox BID starting today. Quality VTE Deep Vein Thrombosis/Pulmonary Embolism Present on Admission: No
--- NOTE | 2019-10-18 10:34 | PC.NURSE ---
Day Shift- Pt A&OX4, flat affect, cooperative, engages in conversation. Rates baseline pain level at 4/10, pt states pain does not go below a 4/10 when at home. Currently 8/10 to right uper chest and shoulder, chronically. Scheduled Fentanyl patch placed to posterior right upper back. PRN Oxycodone 20mg IR given at 0905, upon reassessment, pt was asleep, O2 sat 92% on 1L NC. Pt woke and complained of 8-9/10 pain to right upper chest and shoulder, PRN Morphine 4mg given at 1045. Pt stated feeling like he could not breath. O2 sat 97% on 1L NC. Pt is still intermittent coughing, Fan placed in room blowing across pt.
--- NOTE | 2019-10-18 15:02 | PT.IPTN ---
Current Diagnoses Acute and chronic respiratory failure with hypoxia (10/15/19) Physical Therapy Treatment Note M2 PT-IP Current Condition Start: 10/17/19 14:30 Freq: NEEDED Status: Active Protocol: Document 10/17/19 15:21 HH (Rec: 10/17/19 15:45 HH [id number]) Physical Therapy Current Condition Current Condition Evaluation Date 10/17/19 Treatment Diagnosis acute on chronic respiratory failure, Metastatic adenocarcinoma, weakness Onset Date 10/14/19 Weight Bearing Status Weight Bearing Status Full Weight Bearing M3 PT-IP Subjective Start: 10/17/19 14:30 Freq: NEEDED Status: Active Protocol: Document 10/18/19 14:50 HH (Rec: 10/18/19 15:02 [id number]) Subjective Physical Therapy Visit Type Type Treatment Note Visit Start Time 14:32 Visit Stop Time 14:48 Total Visit Minutes 16 Notes Nursing staff report pt has been getting up to bathroom with FWW Number of REVENUE LIAISON Visits 0 Physical Therapy Visit Comments Patient Comments Im feeling better and i think im 80% recovered. Therapy Pain Assessment Pain Present Pain Present Denied Pain M4 PT-IP Mobility and Gait Start: 10/17/19 14:30 Freq: NEEDED Status: Active Protocol: Document 10/18/19 14:50 HH (Rec: 10/18/19 15:02 [id number]) PT-Bed Mobility Assessment Rolling Type of Rolling Roll to Right Level of Assist Standby Assistance Supine to Sit Supine to Sit Standby Assistance Sit to Supine Sit to Supine Standby Assistance Scooting Scooting to Edge of Bed Standby Assistance Scooting Up and Down in Bed Standby Assistance PT-Transfer Assessment Sit to and From Stand Sit to and from Stand Standby Assistance,Use of Upper Extremities Equipment Transfer Assistive Device Gait Belt,Front Wheeled Walker Orthotic/Prosthetic Devices or Brace: No Transfers Transfer Destination Chair Transfer Technique Stand Step Pivot Transfer Ability Level of Assist Standby Assistance,Use of Upper Extremities Comments Mobility Comments Pt was sitting at EOB upon PT arrival. Pt is on 1L NC with SpO2 97%. Pt reports he coughs less today and able to use bathroom with nursing staff. Pt agreed to mobilize with PT. He then stood up by pushing off with both UEs on bed then transitioned to FWW SBA/CGA. His SpO2 went down to 84% and this PT administered 2L O2/min on NC and he went back to 97% within 30 seconds. Pt then proceed to amb to hallway with SBA. He presents with increased SOB and fatigue when he reached 20ft shashank but SpO2 remained at 97%. He then requested to return to bed d/t fatigue. Pt was able to transfer back to bed and completed sit to supine SBA. SpO2 97% and reports of relief after ambulating. call light placed within reach. Gait Assessment Gait Gait Assistance Required: Standby Assistance,Contact Guard Assist,1 Person Assist Distance (Feet) 40 Able to Maintain Weight Bearing Status Yes During Gait Assistive Devices Assistive Device Gait Belt,Front Wheeled Walker Orthotic/Prosthetic Devices or Brace: No Gait Deviations General Gait Pattern Decreased Stride Length, Decreased Feet Clearance, Flexed Trunk,Step-to Gait Factors Limiting Gait Function Factors Limiting Gait Function Decreased Activity Tolerance, Decreased Strength,Limited Range of Motion,Pain,Poor Balance,Respiratory Distress Comments Gait Comments see mobility comments Stair Climbing Assessment Comments Stair Climbing Comments unable to assess d/t fatigue PT-Balance Assessment Sitting Balance and Reactions Static Sitting Balance Ability Good Dynamic Sitting Balance Ability Good Standing Balance and Reactions Static Standing Balance Ability Good Dynamic Standing Balance Ability Good Device Used FWW M5 PT-IP Objective Assessments Start: 10/17/19 14:30 Freq: NEEDED Status: Active Protocol: Document 10/17/19 15:21 HH (Rec: 10/17/19 15:45 [id number]) Orientation Orientation/Cognition Level of Alertness Alert Orientation Name,Age,Birthday,Month,Date, Year,Day of Week,Place, Situation Language Function Ability No Deficits Noted Safety Awareness Understands Safety Issues Memory Description No Deficits Noted Gross Range of Motion Upper Extremity ROM Assessment Within Functional Limits Lower Extremity ROM Assessment Within Functional Limits Strength Upper Extremity Strength Assessment Within Functional Limits Lower Extremity Strength Assessment Within Functional Limits Coordination Assessment Gross Coordination Gross Coordination WNL Sensation Assessment Sensation Gross Sensation WNL M7 PT-IP Assessment and Plan Start: 10/17/19 14:30 Freq: NEEDED Status: Active Protocol: Document 10/18/19 14:50 HH (Rec: 10/18/19 15:02 [id number]) PT Summary Assessment and Plan Potential Rehabilitation Potential Good Status of Condition at Evaluation Evolving Summary Impairments Pain,ROM,Strength,Balance,Bed Mobility,Transfers,Gait, Activity Tolerance Assessment Summary Pt has shown significant improvements with improved amb distance and decreased assistance need. Pt stated he is 80% of his PLOF today and hopefully cont to improve. He denies with SNF rehab but more open to home health option. Will assess pt's stair climbing ability tomorrow before he could d/c home with assistance and HH. Goals Bed Mobility Goal Standby Assistance Transfer Goal Standby Assistance,Front Wheeled Walker Gait Distance 50 Other Goals 5 steps with FWW/PV INSTALLER TECH Days to Meet Goals 8 Frequency of Treatment Frequency Of Treatment Once a Day Treatment Plan Physical Therapy Treatment Plan Bed Mobility Training,Transfer Training,Gait Training, Therapeutic Exercise,Balance Retraining,Discharge Planning Other Recommendations and Next Treatment monitor vital signs Focus transfer, mboility training pursed lip breathing. stair climbing if possible Recommendations To Nursing Amount of Assist Needed 1 Person Assist Discharge Recommendations PT Discharge Recommendations Home with Assistance,Home Health Transportation Needs at Discharge Private Vehicle
--- NOTE | 2019-10-18 16:12 | CM.DPC ---
DCP/continued: Reviewed chart. Spoke with provider in AM rounds, it suspected that patient will be medically stable within the next 24hrs to discharge. Spoke with therapy and they report that patient improving with mobility. Per PT/Remy patient reportedly told him that he is back at his baseline. Therapy's current recommendation is home with home health and/or support from family. BEHAVIORAL SCIENCES DEPARTMENT CHAIR met with patient this afternoon. Patient reports that he does not think he will need HH? Patient agreeable to think about it overnight. F2F signed by Dr. Ham. Patient confirms to BEHAVIORAL SCIENCES DEPARTMENT CHAIR that he is back to how he was prior to admit. Patient reports that he has walker at home and does not own w/c. Patient reports that his residence does not have room for w/c. Notified patient that CM team would continue to follow and check in with patient tomorrow 716-20 for d/c planning needs. Dr. Ham updated. P: Anticipate home when stable. Patient declines SNF and is considering Home Health. JOSH Ramey
[2019-10-18] MEDS: ENOXAPARIN 60 MG/0.6 ML SYRINGE 55 MG SUBCUT (20:53)
[2019-10-18] MEDS: levoFLOXacin 250 MG TABLET 750 MG PO (20:54)
[2019-10-19] VITALS (8 sets, daily range): BP systolic 93–117; BP diastolic 61–65; PULSE 67–81; RESP 18; TEMP 36.1–36.9; O2SAT 92–97
[2019-10-19] MEDS: MORPHINE 4 MG/ML INJ IV ×5 (01:13→09:45)
[2019-10-19] MEDS: OXYCODONE IR 10 MG TABLET 20 MG PO ×2 (05:35→09:46)
[2019-10-19] MEDS: LEVOTHYROXINE 150 MCG TABLET PO (06:16)
--- NOTE | 2019-10-19 06:34 | PC.NURSE ---
Pt did well overnight. Tolerated 1L NC at 96% Morphine given q2h, pt states the morphine helps him feel like he can breathe better but doesn't necessarily cut down the pain.
[2019-10-19 06:39] LABS: BUN Creatinine Ratio 48.7 (6-22); Blood Urea Nitrogen 38 mg/dL (9-20); Carbon Dioxide 38 mmol/L (22-32); Chloride 96 mmol/L (98-107); Estimated Glomerular Filt Rate > 60.0 mL/min (>60); Glucose 91 mg/dL (80-110); HEMOLYSIS 20 (0-50); Magnesium 1.8 mg/dL (1.6-2.3); Potassium 4.6 mmol/L (3.4-5.1); Sodium 134 mmol/L (137-145)
[2019-10-19 06:40] LABS: Hematocrit 33.6 % (41-53); Hemoglobin 10.8 g/dL (13.5-17.5); Mean Corpuscular HGB Conc 32.2 % (30-36); Mean Corpuscular Volume 77.7 fL (80-100); Platelet Count 493 X10^3/uL (150-400); Red Blood Cell Count 4.33 X10^6/uL (4.5-5.9); Red Cell Distribution Width 17.2 % (11.6-14.8); White Blood Cell Count 14.6 X10^3/uL (4.5-11.0)
[2019-10-19 06:41] LABS: Add Manual Diff / Slide Review YES
[2019-10-19 07:41] LABS: Neutrophils Absolute Manual 12410 /uL (3000-5900); Total Cells Counted 100
[2019-10-19] MEDS: predniSONE 20 MG TABLET 40 MG PO (07:41)
[2019-10-19] MEDS: OXYCODONE ER 10 MG TAB 40 MG PO (07:41)
[2019-10-19] MEDS: PREGABALIN 50 MG CAPSULE PO (07:41)
[2019-10-19] MEDS: SODIUM CHLORIDE 0.9% FLUSH 10 ML IV ×2 (07:41→09:45)
[2019-10-19] MEDS: SERTRALINE 50 MG TABLET 75 MG PO (07:41)
[2019-10-19] MEDS: NICOTINE 14 PATCH 14 MG TOP (07:42)
[2019-10-19] MEDS: ENOXAPARIN 60 MG/0.6 ML SYRINGE 55 MG SUBCUT (07:42)
[2019-10-19 07:43] LABS: RBC Morphology Normal Morphology
--- NOTE | 2019-10-19 09:29 | DIET.PN ---
Dietary Progress Note RD f/u pre:d/c for PCM: pt enjoying ONS Ensure Enlive, drinking c meals and as nighttime snack, pt wt stable since admit. Provided pt d/c handout c ONS reccs and coupons. Pts caregiver will purchase Enlive for home use per pt request.
[2019-10-19] MEDS: FLUTICASONE/SALMETEROL 250/50 60 PUFF DISKUS INH (10:25)
--- NOTE | 2019-10-19 10:47 | P.DS_ITS ---
History of Present Illness History of Present Illness Date Patient Seen: 10/19/19 Time Patient Seen: 09:10 Chief complaint: Shortness of Breath Narrative: As per GEORGE Reddy: Yash Davila is an unfortunate 64 y.o. male with home O2 dependent Stage IV lung cancer with a stable cavitary lesion of the right upper lobe, COPD, history of sepsis, DVT, orthostasis presents today with fever, , shortness of breath, hypoxia prior to presentation to the ED of the low 80s on 3 liters oxygen, rigors and chills. He states he has had on and off fevers for the past month. In the last several days he has been nauseated and vomiting overy the past 3-4 days. States he is constipated, urinating small amounts intermittently thoughout the day. He has had a productive cough, mostly green sputum and continues to have right sided chest pain that radiates to the left for which he takes oxycodone for. The patient continues to smoke a half to a quarter pack per day of cigarettes which is approximately half less than what he previously smoked. States continues to loose weight and is now down to 125 lbs. Actually weighed in at 55 kgs. He was previously admitted and then transferred to [facility] for bronchoscopy. He had a sputum sample that grew out fungus and the thought was that he would have a cavitary lesion biopsied or bronchoscopy to better delineate what the fluid was in that space. It was thought later to be contaminant and the bronchoscopy was not performed. At that time he was treated with short course of steroids and discharged on Augmentin, albuterol and fluticasone. He presented again to their ED on September 12 with worsening right chest and arm pain. The chest CT at that time indicated increased size of the cavitary lesion and an increased air-fluid level. It was thought that a process at T2-T3 appeared to be increasing in size and the patient returned to his oncologist Dr. Young who was concerned about recurrent malignancy. The patient states that they are wanting to have him undergo immunotherapy however that is being held up for insurance concerns. He was discharged with instructions to continue the Augmentin indefinitely and at the point the infection is ruled out they would refer him to thoracic surgery to consider endoscopic drainage. His inhaler was changed over to Advair and requested that he repeat a CT scan of his chest in December 2019 with follow-up in the pulmonary clinic. He was also recommended for palliative care referral. Chest x-ray findings of abnormal but stable chest x-ray with an air-fluid cavity in the right apex consistent with a right hydropneumothorax. T-max was 100? temperature upon arrival to the floor was 90.9, blood pressure 116/67, heart r ate 66, respiratory rate 20, oxygen saturation of 96% on 2.5 L, the patient is 55 kilos with a BMI of 18.4. White count is elevated at 17.5, RBC 4.5 hemoglobin 11.4 hematocrit 35.4 platelet count 695, and a significant left shift, sodium 136, potassium 3.4, bicarb 100, CO2 31, creatinine 0.92, BUN 14, GFR is greater than 60, glucose 130, lactate normal at 1.4, calcium 9.4, magnesium 1.7, liver enzymes are normal, procalcitonin is 0.24, urine had trace leukocytes and COVID-19 was negative. Upon transport they gave him on nebulizer which increased his oxygenation to 90 +% on 3 L. ED started him on IV Levaquin and gave him a nebulizer. I reviewed multiple records from [facility]'s infectious Disease, Pulmonary and hospitalist service. Discharge Providers Provider Date of admission: 10/15/19 00:18 Discharge Date: 10/19/19 Consults: 10/14/19 20:16 Consult to Respiratory Therapy Evaluate & Treat Comment: Physician Instructions: Evaluate and treat 10/15/19 00:46 Consult to Respiratory Therapy Evaluate & Treat Comment: Physician Instructions: Evaluate and treat 10/15/19 01:13 Consult to Dietitian, Adult Routine Comment: Reason For Exam: significant weight loss 10/17/19 09:38 Consult to Physical Therapy Evaluate & Treat Comment: Physician Instructions: Evaluate and Treat Discharge provider: Yash Ham DO Summary Hospital Course Discharge Diagnosis: Please see hospital course by problem list noted below Hospital Course: The patient is a 64-year-old male with a history of a left cavitary lesion, known adenocarcinoma who has completed chemotherapy currently awaiting immunotherapy who presented to the hospital with acute on chronic respiratory failure secondary to likely pnuemonia and COPD exacerbation. He improved with antibiotic therapy and oral steroids. Initially he was recommended for SNF placement, however patient began to regain some strength after therapies and was discharged home with home health when improved symptomatically and had returned to baseline oxygen use. 1. Acute on Chronic hypoxic respiratory failure, present on admission, resolved -suspect Community acquired pneumonia with likely combined COPD exacerbation -patient with productive sputum, fever to 100, an elevated white count in addition to shortness of breath on admission. -patient initially started on IV levofloxacin and azithromycin but switched to oral levofloxacin alone plan for 7 day total course. -started on IV steroids, changed to oral prednisone for continued steroid taper for treatment of COPD exacerbation -patient uses 3L home o2 at baseline, returned to baseline upon discharge. 2. COPD with exacerbation, acute on chronic, present on admission - treated with IV steroids initially and then transitioned to oral prednisone. Patient to complete steroid course at home. 3. Community acquired pneumonia, acute, present on admission. - levaquin given as noted above. 4. Right upper lobe cavitary lesion, present on admission, active -unchanged in appearance on current chest x-ray. He has previously had negative cultures on bronchoscopy end of April at [place]. -patient has had productive cough with yellow sputum for 1 month since having been taken off suppressive antibiotics. -repeat sputum culture showed mixed resident aniket. -Continue levaquin as noted above. 5. Chronic right axillary DVT, present on admission, active -continuing right upper arm pain, Xarelto discontinued due to hemoptysis. -patient has previously tolerated Lovenox, started on prophylactic lovenox and tolerated therapeutic lovenox prior to discharge. Consider resuming as an outpatient. 6. Metastatic adenocarcinoma -chronic right chest pain due to rib metastases -Under the care of Dr. Thomas Young, apparently wishes to start immunotherapy. He was to have started Nivolumab on 09/21/2019, but has had difficulty getting insurance coverage of this medication. -complained of uncontrolled pain in his R chest. Restarted fentanyl patch as an outpatient to hopefully help with pain control. -further outpatient immunotherapy per Dr. Kdid. He also was referred to palliative care. 7. Acquired hypothyroidism, chronic, present on admission, stable. Will continue patient's current home regimen of levothyroxine 150 mcg daily. 8. Severe protein malnutrition with a bmi of 17.9 -director of content and programming consultation appreciated, worry about malnutrition in the setting of malignancy and ongoing therapy. Dispo: discharged home with home health. Time Spent with Patient Time spent: Greater than 30 minutes Exam Vital Signs (past 8 hours): - 10/19/19 05:00 10/19/19 08:00 10/19/19 10:26 Temperature 97.0 F L 98.4 F Pulse Rate 79 67 Respiratory Rate 18 18 Blood Pressure 117/61 114/65 Pulse Oximetry 94 97 96 10/19/19 10:31 Temperature Pulse Rate Respiratory Rate Blood Pressure Pulse Oximetry 96 Oxygen Delivery Method Nasal Cannula Oxygen Flow Rate 2 Narrative Exam Narrative: GENERAL APPEARANCE: Chronically ill-appearing, near cachectic, male in no acute distress. SKIN: Inspection of the skin reveals no rashes, ulcerations or petechiae. HEENT: Normocephalic atraumatic, extraocular muscles are intact, oropharynx is clear and mucous membranes are moist, neck is supple without adenopathy NECK: Supple and symmetric. There was no thyroid enlargement, no tenderness. CHEST: Normal AP diameter and normal contour without any kyphoscoliosis. Left- sided Port-A-Cath without erythema or induration. LUNGS: Auscultation of the lungs revealed no wheezes, rhonchi, or rales. Diminished air movement R side. Shallow inspirations limited by pain. CARDIOVASCULAR: There was a regular rate and rhythm without any murmurs, gallop s, rubs. Peripheral pulses were 2+ and symmetric. ABDOMEN: Soft and nontender with normal bowel sounds. No ascites was noted. MUSCULOSKELETAL: There was no tenderness or effusions noted. Muscle strength and tone were normal. EXTREMITIES: No cyanosis, clubbing or edema. NEUROLOGIC: Alert and oriented x 3. Normal affect. Strength is +5/5 in the Upper Extremities and Lower Extremities Bilaterally. Objective Labs Result Diagrams: 10/19/19 06:20 10/19/19 06:20 Labs: Laboratory Results - last 24 hr 10/19/19 10/19/19 06:20 06:20 WBC 14.6 H RBC 4.33 L Hgb 10.8 L Hct 33.6 L MCV 77.7 L MCH 25.0 L MCHC 32.2 RDW 17.2 H Plt Count 493 H Neut % (Auto) Not Reportable Lymph % (Auto) Not Reportable [place] % (Auto) Not Reportable Eos % (Auto) Not Reportable Baso % (Auto) Not Reportable Lymph # (Auto) Not Reportable [place] # (Auto) Not Reportable Baso # (Auto) Not Reportable Total Counted 100 Seg Neutrophils % 83.0 H Band Neutrophils % 2.0 L Lymphocytes % (Manual) 8.0 L Monocytes % (Manual) 7.0 Neutrophils # (Manual) 60206 H RBC Morphology Normal morphology Sodium 134 L Potassium 4.6 Chloride 96 L Carbon Dioxide 38 H BUN 38 H Creatinine 0.78 Estimated GFR > 60.0 BUN/Creatinine Ratio 48.7 H Glucose 91 Calcium 9.0 Magnesium 1.8 Discharge Plan Discharge Plan Patient Disposition: Home Health Service Transfer to: [facility] Discharge comment: You were admitted to the hospital with trouble breathing. You improved with antibiotics and steroids. Please continue to increase fentanyl patch with your oncologist for pain. Please contact [facility] to set up a meeting. Discharge orders & Medications Prescriptions: New fluticasone propion-salmeterol [Advair Diskus] 250-50 mcg/dose Blister With Device 1 puff INH BID 30 Days Qty: 1 RF: 0 Continued sertraline [Zoloft] 50 mg Tablet 75 mg PO DAILY RF: 0 pregabalin [Lyrica] 50 mg Capsule 50 mg PO TID Qty: 90 RF: 1 alprazolam [Xanax] 0.5 mg Tablet 0.5 mg PO BEDTIME PRN (Reason: claustrophobic) Qty: 2 RF: 0 oxycodone 20 mg Tablet 20 mg PO Q4H PRN (Reason: pain, cancer-related) Qty: 180 RF: 0 albuterol sulfate [ProAir HFA] 90 MCG/PUFF HFA aerosol inhaler 1 puff INH Q6H RF: 0 ipratropium-albuterol 0.5 mg-3 mg(2.5 mg base)/3 mL Solution For Nebulization 3 ml INH Q4HR PRN (Reason: sob/wheezing) Qty: 40 RF: 0 Discontinued ceftriaxone in dextrose,iso-os 2 gram/50 mL Piggyback 2 gm IV Q24H Qty: 7 RF: 0 No Action fentanyl 25 mcg/hr Patch 72 Hour 1 patch TRANSDERMAL Q72H Qty: 4 RF: 0 tramadol 50 mg Tablet 50 mg PO BID PRN (Reason: pain) Qty: 60 RF: 0 levothyroxine 150 mcg Tablet 175 mcg PO DAILY Qty: 90 RF: 0 Follow up/Referrals: Thomas Young MD [Physician] - (Please call to make follow up appointment regarding pain management) Discharge Health Status Health Concerns: Lung adenocarcinoma Pneumonia COPD Diet/Activity/Treatments Diet: Diet as Tolerated Activity: As tolerated Visit Report/Discharge Packet Instructions: Smoking Cessation Drugs: Nicotine Replacement Products, DI for Chronic Obstructive Pulmonary Disease, DI for Pneumonia -- Adult, How to Prevent Falls, DI for Prescription Opioid Use Visit Report Forms: Patient Portal/API, Stroke Signs & Symptoms Discharges patient from system. Discharge Date/Time: 10/19/19 12:17 Quality VTE Deep Vein Thrombosis/Pulmonary Embolism Present on Admission: No
--- NOTE | 2019-10-19 10:51 | CM.DPC ---
Met patients at morning BS rounds with Dr. Ham. Plan is home today with HH. Pt. not embracing the idea of HH due his 3 unfriendly dogs. Decided with patient that I would arrange HH with [facility] and will alert them of his safety concerns. He is very non-committal about HH involvement. is coming an noon to assist with probable discharge.
--- NOTE | 2019-10-19 12:01 | PT.IPTN ---
Current Diagnoses Acute and chronic respiratory failure with hypoxia (10/15/19) Physical Therapy Treatment Note M2 PT-IP Current Condition Start: 10/17/19 14:30 Freq: NEEDED Status: Active Protocol: Document 10/17/19 15:21 HH (Rec: 10/17/19 15:45 HH [id number]) Physical Therapy Current Condition Current Condition Evaluation Date 10/17/19 Treatment Diagnosis acute on chronic respiratory failure, Metastatic adenocarcinoma, weakness Onset Date 10/14/19 Weight Bearing Status Weight Bearing Status Full Weight Bearing M3 PT-IP Subjective Start: 10/17/19 14:30 Freq: NEEDED Status: Active Protocol: Document 10/19/19 10:55 DCW (Rec: 10/19/19 12:00 DCW [id number]) Subjective Physical Therapy Visit Type Type Treatment Note Visit Start Time 10:55 Visit Stop Time 11:10 Total Visit Minutes 15 Notes Nursing requests stair trial in order to allow pt to discharge 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 Therapy Pain Assessment Pain Present Pain Present Denied Pain M4 PT-IP Mobility and Gait Start: 10/17/19 14:30 Freq: NEEDED Status: Active Protocol: Document 10/19/19 10:55 DCW (Rec: 10/19/19 12:00 DCW [id number]) PT-Bed Mobility Assessment Rolling Type of Rolling Roll to Left Level of Assist Independent Supine to Sit Supine to Sit Standby Assistance Sit to Supine Sit to Supine Independent PT-Transfer Assessment Sit to and From Stand Sit to and from Stand Standby Assistance,Use of Upper Extremities Equipment Transfer Assistive Device Gait Belt,Front Wheeled Walker Orthotic/Prosthetic Devices or Brace: No Transfer Ability Level of Assist Standby Assistance,Use of Upper Extremities Comments Mobility Comments Pt in bed upon arrival, O2 sat at 95% at 1L SpO2 via NC. Pt determined to go home today, ready to try stairs in order to discharge. Use O2 tank at 1L while pt ambulated 40' in tobias FWW SBA, ascended/ descended 3 stairs x2 /s AD or railing. O2 sat dropped on 88 %. Pt returned to room, ambulating 40' FWW, and independently returned to bed. Pt was left with call albrecht within reach and bed alarm on. Gait Assessment Gait Gait Assistance Required: Standby Assistance,1 Person Assist Distance (Feet) 80 Able to Maintain Weight Bearing Status Yes During Gait Assistive Devices Assistive Device Gait Belt,Front Wheeled Walker Orthotic/Prosthetic Devices or Brace: No Gait Deviations General Gait Pattern Decreased Stride Length, Decreased Feet Clearance, Flexed Trunk,Step-to Gait Factors Limiting Gait Function Factors Limiting Gait Function Decreased Activity Tolerance, Decreased Strength,Limited Range of Motion,Pain,Poor Balance,Respiratory Distress Stair Climbing Assessment Evaluation Level of Assist On Stairs Standby Assistance Devices Stair Climbing Assistive Devices None Technique/Endurance Stair Climbing Direction Ascend and Descend Stair Climbing Technique Step to Step Number of Steps Climbed 3 Stair Climbing Set # Repetitions (reps) 2 M5 PT-IP Objective Assessments Start: 10/17/19 14:30 Freq: NEEDED Status: Active Protocol: Document 10/17/19 15:21 HH (Rec: 10/17/19 15:45 HH [id number]) Orientation Orientation/Cognition Level of Alertness Alert Orientation Name,Age,Birthday,Month,Date, Year,Day of Week,Place, Situation Language Function Ability No Deficits Noted Safety Awareness Understands Safety Issues Memory Description No Deficits Noted Gross Range of Motion Upper Extremity ROM Assessment Within Functional Limits Lower Extremity ROM Assessment Within Functional Limits Strength Upper Extremity Strength Assessment Within Functional Limits Lower Extremity Strength Assessment Within Functional Limits Coordination Assessment Gross Coordination Gross Coordination WNL Sensation Assessment Sensation Gross Sensation WNL M7 PT-IP Assessment and Plan Start: 10/17/19 14:30 Freq: NEEDED Status: Active Protocol: Document 10/19/19 10:55 DCW (Rec: 10/19/19 12:00 DCW [id number]) PT Summary Assessment and Plan Potential Rehabilitation Potential Good Status of Condition at Evaluation Evolving Summary Impairments Pain,ROM,Strength,Balance,Bed Mobility,Transfers,Gait, Activity Tolerance Assessment Summary Pt appears safe on stairs for discharge, O2 sat did drop to 88% with 1L SpO2, pt notes he always has his home O2 turned up to 3L. Pt slightly impulsive, but did not show any indication of instability or LOB during gait or stairs. 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 stair climbing if possible Recommendations To Nursing Amount of Assist Needed 1 Person Assist Discharge Recommendations PT Discharge Recommendations Home with Assistance,Home Health Transportation Needs at Discharge Private Vehicle
--- NOTE | 2019-10-19 13:14 | CM.DPNOTE ---
DC Note faxed HH referral to [facility] to include face sheet, signed F2F, HH order and H+P. DC Summary has not been signed yet. Attempted to update patient on these efforts and he had already left. P: DC home w/spouse and [facility] if patient agreeable to such once home, left via private auto today JW
--- NOTE | 2019-10-19 13:58 | PC.NURSE ---
Addendum entered by Jimena Ugarte R.N. 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 Original Note: Day Shift- Pt states is ready to go home. Had question about getting humidifier for his Oxygen tank at home. Requested pt to go through Oxygen company to get adapter and solution. Pt states he has had this before. Pt currently on 1L NC upon discharge, pt's Tomasa brought in portable Oxygen tank for discharge. Left chest port de-accessed, previously had heparin flush per protocol. Band-aid placed over site, no bleeding noted, no S/S of infection. Discharge summary reviewed with pt and his Tomasa at bedside, aware to call to make follow up appointment with Dr. Young regarding pain management plan. No further voiced concerns. 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 Tomasa is present to drive pt home. Left unit with all belongings.
== END 2019-10-19 12:17 | disposition home health service (06) | DRG 139 ==
LOC: ED 10-15 00:11 → AC 10-15 00:19
PROVIDERS: Internal Medicine; Nurse Practitioner; Admitting Provider Nurse Practitioner Family; Emergency Provider Emergency Medicine; Referring Provider Emergency Medicine; Visit Provider Nurse Practitioner Family
DX: J18.9 Pneumonia, unspecified organism (principal); J96.21 Acute and chronic respiratory failure with hypoxia; E43 Unspecified severe protein-calorie malnutrition; J44.1 Chronic obstructive pulmonary disease with (acute) exacerbation; Z68.1 Body mass index [BMI] 19.9 or less, adult; Z99.81 Dependence on supplemental oxygen; C34.91 Malignant neoplasm of unspecified part of right bronchus or lung; C79.51 Secondary malignant neoplasm of bone; J94.8 Other specified pleural conditions; I82.A21 Chronic embolism and thrombosis of right axillary vein; F17.210 Nicotine dependence, cigarettes, uncomplicated; F32.9 Major depressive disorder, single episode, unspecified; E03.9 Hypothyroidism, unspecified; K21.9 Gastro-esophageal reflux disease without esophagitis; Z01.818 Encounter for other preprocedural examination
CPT/HCPCS: 36415; 36591; 71045; 80048; 80053; 81001; 82550; 83605; 83735; 84145; 84484; 85025; 87040; 87070; 87086; 87205; 87635; 93005; 93010; 94640; 94762; 96365; 96366; 96375; 97116; 97163; 97530; 99285; J1642; J1650; J1956; J2270; J2920; J2930

== ENCOUNTER 2019-10-24 18:41 | Observation (INO) | payer OTHER, MEDICAID, SELFPAY ==
[2019-10-15 01:38] VITALS: BMI 17.9
[2019-10-24] VITALS (20 sets, daily range): BP systolic 82–117; BP diastolic 51–78; PULSE 62–96; RESP 16–31; TEMP 36.5–37.5; O2SAT 94–100; BMI 18.3
--- NOTE | 2019-10-24 18:52 | DI.RAD.S_ITS ---
PROCEDURE: XR CHEST 1V INDICATIONS: Sycope TECHNIQUE: One view of the chest was acquired. COMPARISON: [facility], CR, XR CHEST 1V, 10/14/2019, 20:35. FINDINGS: Surgical changes and devices: Left Port-A-Cath is unchanged in position. Lungs and pleura: Chronic interstitial changes are present. There is a persistent appearance of a cavitary right apical focus. Trace right effusion. Mediastinum: Mediastinal contours appear normal. Heart size is normal. Bones and chest wall: No suspicious bony lesions. Overlying soft tissues appear unremarkable. IMPRESSION: Persistent cavitary right apical lesion. Otherwise, stable interval exam. Dictated by: Alexandra Cast M.D. on 10/24/2019 at 19:33 Approved by: Alexandra Cast M.D. on 10/24/2019 at 19:34
--- NOTE | 2019-10-24 18:52 | DI.CT.S_ITS ---
PROCEDURE: CT HEAD/BRAIN WO CON INDICATIONS: FAll, head injury TECHNIQUE: Noncontrast 4.5 mm thick angled axial sections acquired from the foramen magnum to the vertex, with coronal and sagittal reformats. For radiation dose reduction, the following was used: automated exposure control, adjustment of mA and/or kV according to patient size. COMPARISON: [facility], MR, BRAIN W&WO CONTRAST, 08/14/2015, 18:23. FINDINGS: Image quality: Excellent. CSF spaces: Basal cisterns are patent. No extra-axial fluid collections. Ventricles are normal in size and shape. Brain: No midline shift. No intracranial masses or hemorrhage. [place]-white matter interface is normal. Skull and face: Calvarium and visualized facial bones are intact, without suspicious lesions. Sinuses: Visualized sinuses and mastoids are clear. IMPRESSION: 1. No acute intracranial process. Dictated by: Alexandra Cast M.D. on 10/24/2019 at 19:11 Approved by: Alexandra Cast M.D. on 10/24/2019 at 19:12
--- NOTE | 2019-10-24 18:52 | DI.CT.S_ITS ---
PROCEDURE: CT CERVICAL SPINE WO CON INDICATIONS: Neck Pain TECHNIQUE: Noncontrast 3 mm thick sections acquired from the skull base to the T4 level. Sagittal and coronal reformats were then constructed. For radiation dose reduction, the following was used: automated exposure control, adjustment of mA and/or kV according to patient size. COMPARISON: [facility], CT, CT CHEST WITH CONTRAST, 09/13/2019, 2:34. [facility], MR, MR THORACIC SPINE WO/W CON, 09/04/2019, 14:30. [facility], CT, CT HEAD/BRAIN WO CON, 10/24/2019, 18:52. FINDINGS: Image quality: Excellent. Bones: No fractures or dislocations. Visualized superior ribs are intact. Anterior fusion is present at C5-6. There is a destructive process along the inferior endplate of T2 and superior endplate of T3 with some fragmented margins. This was identified on MRI thoracic spine of 09/04/2019. Soft tissues: Prevertebral soft tissues are normal in thickness. No paravertebral hematomas. No apical pneumothoraces. Prominent cavitation is noted within the right apex. It is noted that on prior exam, area of cavitation and fluid was present. Adjacent areas of osseous rib destruction are again noted. REFERENCE TEXT DELETE FROM FINAL REPORT Craniocervical Injury Classification: Occipital condyle fractures: * Type I: axial loading with minimal displacement; stable. * Type II: skull base fx extending through condyle; stable. * Type III: alar ligament avulsion fx:; unstable. [place] fractures ([place]): * Type I: posterior arches; stable. * Type II: anterior arch; stable. * Type III: bilat posterior arch with bilateral/unilateral anterior arch ([place] burst); potentially unstable depending on transverse ligament integrity. * Type IV: lateral mass fx; stable. * Type V: transverse anterior arch avulsion fx; stable. Odontoid fractures: * Type I: alar ligament oblique avulsion fx through tip; stable. * Type II: dens-body junction; unstable. Risk factors for non-union: age >50 years, >6 mm displacement, or comminution at fracture site. * Type III: thru cancellous portion of dens body; can cause canal compromise. [place] fractures: * Type I: hairline fx with <2 mm translation; stable. * Type II: angulation >11 degrees, > 2 mm translation; can be unstable. * Type IIa: severe angulation w/o translation (intact ALL); unstable. * Type III: bilateral facet dislocation; unstable. Atlantoaxial rotatory subluxation and fixation: * Type I: rotatory fixation with dens as pivot point, intact alar & transverse ligaments. * Type II: transverse ligament torn, center of rotation shifts to lateral mass, <5 mm anterior displacement of atlas; unstable. * Type III: transverse and alar ligaments torn, similar to type II but with >5 mm anterior displacement of atlas; unstable. * Type IV: deficient odontoid, with posterior displacement of atlas; unstable. Subaxial Injury Classification: SLIC Scoring System. Morphology: * No abnormality: 0 * Compression: 1 * Burst: 2 * Distraction: 3 (dislocation in the vertical axis, from hyperextension or hyperflexion). Hyperflexion-distraction criteria: facet overlap <50%, facet diastasis > 2mm, posterior disk spac widening with angulation >11 degrees. * Translation or rotation: 4. Rotation criteria: listhesis >3.5 mm but <50% of caudal vertebral body width. Translation criteria: listhesis >3.5 mm and usually >50% of caudal vertebral body width. Discoligamentous complex: pharmacovigilance specialist from abnormal bony relationships on CT. * Intact: 0 * Indeterminate: 1 * Disrupted: 2 Neurologic status: * Intact: 0 * Root injury: 1 * Complete cord injury: 2 * Incomplete cord injury: 3 * Incomplete cord injury with compression: 4 Total SLIC score: 3 or less is non-surgical, 4 is indeterminate, 5 or more is surgical. IMPRESSION: 1. No acute osseous abnormality. 2. Destructive appearance at T2 and T3, as identified on prior exam most concerning for metastatic involvement. 3. Expansion of previous cavitary right apical lesion. Dictated by: Alexandra Cast M.D. on 10/24/2019 at 19:13 Approved by: Alexandra Cast M.D. on 10/24/2019 at 19:16
--- NOTE | 2019-10-24 18:55 | ED.FALL ---
HPI - Fall <Tomasa CrawfordGEORGE - Last Filed: 10/24/19 21:11> General Chief Complaint: Syncope Stated Complaint: Fell, Head and Arm Laceration Time Seen by Provider: 10/24/19 18:42 Source: patient and family Mode of arrival: Wheelchair History of Present Illness HPI Narrative: 67yo male with a history of lung cancer with Mets to the thoracic vertebral column, COPD, and is chronically on 2-3L of oxygen daily, presents to the emergency department for a syncopal episode. Patient states he was walking on the next thing he knew he woke up on the ground. The fall was witnessed by a bystander, reports he passed out for only a few minutes. He was able to get up from the fall. Patient reports a laceration to his forehead and left wrist. He does report left wrist pain as well as neck pain that is worse with movement. Patient states he was recently discharged from the hospital with pneumonia, records reports that he was in our hospital in June for sepsis with hypoxic respiratory failure. Patient states he has chronic right-sided pain from his cancer but denies any worsening pain in the area. Patient denies any worsening shortness of breath, chest pain, dizziness at this time, other injuries, vision changes, high fevers, increased fatigue, or other concerns. Related Data Home Medications Medication Instructions Recorded Confirmed albuterol sulfate [ProAir HFA] 1 puff INH Q6H 03/18/18 10/24/19 sertraline [Zoloft] 75 mg PO DAILY 06/23/18 10/24/19 Previous Rx's Medication Instructions Recorded ipratropium-albuterol 3 ml INH Q4HR PRN #40 ml 03/20/18 levothyroxine 150 mcg PO DAILY #90 tab 04/11/19 pregabalin [Lyrica] 50 mg PO TID #90 cap 04/11/19 alprazolam [Xanax] 0.5 mg PO BEDTIME PRN #2 tab 08/24/19 oxycodone 20 mg PO Q4H PRN #180 tab 09/18/19 fentanyl 1 patch TRANSDERMAL Q72H #4 ea 10/19/19 fluticasone propion-salmeterol 1 puff INH BID 30 Days #1 each 10/19/19 [Advair Diskus] tramadol 50 mg PO BID PRN #60 tab 10/19/19 Allergies Allergy/AdvReac Type Severity Reaction Status Date / Time aspirin [ASPIRIN] AdvReac Mild NAUSEA Verified 09/01/19 14:15 Review of Systems <GEORGE Ornelas - Last Filed: 10/24/19 21:11> Review of Systems Narrative: REVIEW OF SYSTEMS: GENERAL: Denies fever or chills. HENT: Reports head trauma, see HPI. EYES: No vision changes. CARDIOVASCULAR: No chest pain. Reports syncope, see HPI. RESPIRATORY: No shortness of breath. GASTROINTESTINAL: No nausea or vomiting. GENITOURINARY: No flank pain. MUSCULOSKELETAL: Reports left wrist pain, see HPI. INTEGUMENTARY: Reports skin tears on left wrist and laceration to head, see HPI. NEURO: Reports syncope, see HPI. PSYCH: No behavior or mood changes. Patient History <GEORGE Ornelas - Last Filed: 10/24/19 21:11> Medical History COPD (chronic obstructive pulmonary disease) (Chronic) Depression (Acute) DVT of upper extremity (deep vein thrombosis) (Acute) GERD (gastroesophageal reflux disease) (Acute) Hypothyroid (Chronic) Lung cancer, primary, with metastasis from lung to other site (Chronic) PEG (percutaneous endoscopic gastrostomy) adjustment/replacement/removal (Acute) Peripheral neuropathy (Acute) Tobacco dependence (Acute) Surgical History History of lung biopsy (Acute) Family History Mother Congestive heart failure Father Unknown family medical history Social History household members: spouse, caregiver and other Smoking Status: Current every day smoker alcohol intake: former Smoking Status: Current every day smoker alcohol intake frequency: holidays/special occasions only Substance Use Type: does not use Exam <GEORGE Ornelas - Last Filed: 10/24/19 21:11> Initial Vital Signs Initial Vital Signs: Vital Signs Temperature 99.5 F 10/24/19 18:49 Pulse Rate 96 H 10/24/19 18:49 Respiratory Rate 22 10/24/19 18:49 Blood Pressure 117/78 10/24/19 18:49 Pulse Oximetry 99 10/24/19 18:49 PHYSICAL EXAMINATION: GENERAL: Well groomed, alert, and cooperative. Answers questions promptly and appropriately. Vital signs noted. HENT: An 8 cm laceration to left side of head. EYES: Conjunctiva pink, sclera white, no periorbital swelling. CHEST: Normal to inspection and without deformities. CARDIOVASCULAR: S1 and S2 sounds normal. Regular rate and rhythm, no murmurs, clicks, or bruits. Tachycardia present upon standing up, or the hypertension present. RESPIRATORY: Normal respiratory rate, trachea midline, airway patent. No stridor, nasal flaring or accessory muscle use. Lungs with scattered rhonchi, patient is on oxygen chronically. GASTROINTESTINAL: Bowel sounds normoactive. Abdomen is soft and non-tender. No organomegaly. MUSCULOSKELETAL: Tenderness to left wrist, no tenderness to palpation of hand, elbows, hips, shoulders (chronic right sided shoulder pain that is not worse) Normal gait and coordination. Equal tone and mass bilaterally. Multiple 1-2 cm skin tears noted to left arm. EXTREMITIES: CMS intact. Moves all extremities. SKIN: Warm, dry, soft, appropriate color for ethnicity. No lesions, rashes, or wounds. NEURO: Alert and Oriented X 3. Good coordination. No ataxia, or sensory deficits, or cognitive issues. GCS: 15. Cranial Nerves: II: Visual monte grossly intact. III & IV & : EOMIs V: Able to open and close jaw. VII: Facial movements symetrical. Able to close eyelids tightly. VIII: Hearing grossly intact, adequate balance. X: Uvula pronation intact. XI: Patient is able to shrug shoulders. XII: Patient is able to stick out tongue and move it side to side. PSYCH: Appropriate affect and mood. <Bhavik Chamorro DO - Last Filed: 10/25/19 02:36> Initial Vital Signs Initial Vital Signs: Vital Signs Temperature 99.5 F 10/24/19 18:49 Pulse Rate 96 H 10/24/19 18:49 Respiratory Rate 22 10/24/19 18:49 Blood Pressure 117/78 10/24/19 18:49 Pulse Oximetry 99 10/24/19 18:49 Procedures <GEORGE Ornelas - Last Filed: 10/24/19 21:11> Laceration Repair Laceration 1: Site: face Size (cm): 8 Description: linear Depth: simple, single layer Skin layer closed with: dermabond Course <GEORGE Ornelas - Last Filed: 10/24/19 21:11> Course Course Narrative: 2030: I spoke with GEORGE Valiente, discussed test, test results, plan of care. Discussed syncope and patient risk factors, requested orthostatic vital signs. Patient admitted to observation. 2100: Patient is increased dizziness, low blood pressure, tachycardia upon standing. Fluids were administered. Patient was admitted. Orders Ordered: ED Orders 10/24/19 18:52 CT cervical spine wo con Stat CT head/brain wo con Stat XR chest 1V Stat 10/24/19 18:55 XR wrist LT min 3V Stat 10/24/19 19:00 Complete Blood Count AUTO DIFF Stat Comprehensive Metabolic Panel Stat Troponin & CK Cardiac Panel Stat 10/24/19 19:24 EKG-12 Lead Stat Acetaminophen (Tylenol) 650 mg PO Q4HR PRN PRN Reason: Fever/Mild Pain (1-3) Al Hydrox/Mg Hydrox/Simethicone (Maalox Plus) 30 ml PO Q6HR PRN PRN Reason: Dyspepsia Albuterol/Ipratropium (Duoneb) 3 ml INH Q4HR PRN PRN Reason: sob/wheezing Last Admin: 10/24/19 23:59 Dose: 3 ml Documented by: SONNY Albuterol/Ipratropium (Duoneb) 3 ml INH RTQ6HR RENO Stop: 11/01/19 06:59 Alprazolam (Xanax) 0.5 mg PO BEDTIME PRN PRN Reason: claustrophobic Bisacodyl (Dulcolax) 10 mg AK DAILY PRN PRN Reason: Constipation Docusate Sodium (Colace) 100 mg PO BID PRN PRN Reason: Constipation Enoxaparin Sodium (Lovenox) 40 mg SUBCUT DAILY RENO Hydromorphone HCl (Dilaudid) 0.5 mg IV Q6H PRN PRN Reason: Pain, Moderate (4-6) Sodium Chloride (Normal Saline 0.9%) 1,000 mls @ 100 mls/hr IV CONT RENO Last Admin: 10/25/19 00:40 Dose: 100 mls/hr Documented by: LORIE Levothyroxine Sodium (Synthroid) 150 mcg PO QACBREAK RENO Naloxone HCl (Narcan) 0.2 mg IV Q2MIN PRN PRN Reason: Opiate Reversal Ondansetron HCl (Zofran) 4 mg IV Q8HR PRN PRN Reason: Nausea And Vomiting Oxycodone HCl (Percolone) 20 mg PO Q4H PRN PRN Reason: pain, cancer-related Last Admin: 10/25/19 00:46 Dose: 20 mg Documented by: LORIE Pregabalin (Lyrica) 50 mg PO TID [facility] Last Admin: 10/25/19 00:42 Dose: 50 mg Documented by: LORIE Fluticasone/Salmeterol (Advair 250/50 Diskus) 1 puff INH BID RENO Sertraline HCl (Zoloft) 75 mg PO DAILY RENO Tramadol HCl (Ultram) 50 mg PO BID PRN PRN Reason: pain Discontinued Medications Albuterol (Ventolin Hfa (Vent/Covid R/O)) 1 puff INH Q6H RENO Last Admin: 10/25/19 00:09 Dose: Not Given Documented by: SONNY Bacitracin (Bacitracin) 1 applic TOP NOW ONE Stop: 10/24/19 21:15 Last Admin: 10/24/19 21:27 Dose: Not Given Documented by: NOY Bacitracin (Bacitracin) 1 applic TOP NOW ONE Stop: 10/24/19 21:18 Last Admin: 10/24/19 21:26 Dose: 1 applic Documented by: NOY Sodium Chloride (Normal Saline 0.9%) 1,000 mls @ 150 mls/hr IV CONT RENO Last Admin: 10/24/19 23:13 Dose: 150 mls/hr Documented by: Infusion: 10/24/19 21:25 Dose: 0 mls/hr Documented by: Admin: 10/24/19 20:48 Dose: 999 mls/hr Documented by: BECKY Reevaluation(s) Reevaluation #1: Patient staffed with Dr. Chamorro discussed test, test results, plan of care. Vital Signs Vital signs: Vital Signs - 8 hr 10/24/19 18:49 10/24/19 19:16 10/24/19 19:30 Temperature 99.5 F Pulse Rate 96 H 85 79 Respiratory Rate 22 21 Blood Pressure 117/78 Pulse Oximetry 99 95 10/24/19 19:35 10/24/19 19:40 10/24/19 19:45 Temperature Pulse Rate 80 78 79 Respiratory Rate 20 24 21 Blood Pressure Pulse Oximetry 96 95 94 10/24/19 19:50 10/24/19 19:55 10/24/19 20:00 Temperature Pulse Rate 76 71 69 Respiratory Rate 18 17 18 Blood Pressure Pulse Oximetry 96 96 96 10/24/19 20:05 10/24/19 20:10 Temperature Pulse Rate 69 69 Respiratory Rate 21 16 Blood Pressure Pulse Oximetry 96 97 <Bhavik Chamorro, - Last Filed: 10/25/19 02:36> Orders Ordered: ED Orders 10/24/19 18:52 CT cervical spine wo con Stat CT head/brain wo con Stat XR chest 1V Stat 10/24/19 18:55 XR wrist LT min 3V Stat 10/24/19 19:00 Complete Blood Count AUTO DIFF Stat Comprehensive Metabolic Panel Stat Troponin & CK Cardiac Panel Stat 10/24/19 19:24 EKG-12 Lead Stat Acetaminophen (Tylenol) 650 mg PO Q4HR PRN PRN Reason: Fever/Mild Pain (1-3) Al Hydrox/Mg Hydrox/Simethicone (Maalox Plus) 30 ml PO Q6HR PRN PRN Reason: Dyspepsia Albuterol/Ipratropium (Duoneb) 3 ml INH Q4HR PRN PRN Reason: sob/wheezing Last Admin: 10/24/19 23:59 Dose: 3 ml Documented by: SONNY Albuterol/Ipratropium (Duoneb) 3 ml INH RTQ6HR RENO Stop: 11/01/19 06:59 Alprazolam (Xanax) 0.5 mg PO BEDTIME PRN PRN Reason: claustrophobic Bisacodyl (Dulcolax) 10 mg AK DAILY PRN PRN Reason: Constipation Docusate Sodium (Colace) 100 mg PO BID PRN PRN Reason: Constipation Enoxaparin Sodium (Lovenox) 40 mg SUBCUT DAILY [facility] Hydromorphone HCl (Dilaudid) 0.5 mg IV Q6H PRN PRN Reason: Pain, Moderate (4-6) Sodium Chloride (Normal Saline 0.9%) 1,000 mls @ 100 mls/hr IV CONT RENO Last Admin: 10/25/19 00:40 Dose: 100 mls/hr Documented by: LORIE Levothyroxine Sodium (Synthroid) 150 mcg PO QACBREAK RENO Naloxone HCl (Narcan) 0.2 mg IV Q2MIN PRN PRN Reason: Opiate Reversal Ondansetron HCl (Zofran) 4 mg IV Q8HR PRN PRN Reason: Nausea And Vomiting Oxycodone HCl (Percolone) 20 mg PO Q4H PRN PRN Reason: pain, cancer-related Last Admin: 10/25/19 00:46 Dose: 20 mg Documented by: LORIE Pregabalin (Lyrica) 50 mg PO TID RENO Last Admin: 10/25/19 00:42 Dose: 50 mg Documented by: LORIE Fluticasone/Salmeterol (Advair 250/50 Diskus) 1 puff INH BID RENO Sertraline HCl (Zoloft) 75 mg PO DAILY RENO Tramadol HCl (Ultram) 50 mg PO BID PRN PRN Reason: pain Discontinued Medications Albuterol (Ventolin Hfa (Vent/Covid R/O)) 1 puff INH Q6H RENO Last Admin: 10/25/19 00:09 Dose: Not Given Documented by: SONNY Bacitracin (Bacitracin) 1 applic TOP NOW ONE Stop: 10/24/19 21:15 Last Admin: 10/24/19 21:27 Dose: Not Given Documented by: NOY Bacitracin (Bacitracin) 1 applic TOP NOW ONE Stop: 10/24/19 21:18 Last Admin: 10/24/19 21:26 Dose: 1 applic Documented by: NOY Sodium Chloride (Normal Saline 0.9%) 1,000 mls @ 150 mls/hr IV CONT RENO Last Admin: 10/24/19 23:13 Dose: 150 mls/hr Documented by: Infusion: 10/24/19 21:25 Dose: 0 mls/hr Documented by: Admin: 10/24/19 20:48 Dose: 999 mls/hr Documented by: BECKY Vital Signs Vital signs: Vital Signs - 8 hr 10/24/19 18:49 07/21/20 19:16 10/24/19 19:30 Temperature 99.5 F Pulse Rate 96 H 85 79 Respiratory Rate 22 21 Blood Pressure 117/78 Pulse Oximetry 99 95 10/24/19 19:35 10/24/19 19:40 10/24/19 19:45 Temperature Pulse Rate 80 78 79 Respiratory Rate 20 24 21 Blood Pressure Pulse Oximetry 96 95 94 10/24/19 19:50 10/24/19 19:55 10/24/19 20:00 Temperature Pulse Rate 76 71 69 Respiratory Rate 18 17 18 Blood Pressure Pulse Oximetry 96 96 96 10/24/19 20:05 10/24/19 20:10 Temperature Pulse Rate 69 69 Respiratory Rate 21 16 Blood Pressure Pulse Oximetry 96 97 MDM - Fall <GEORGE Ornelas - Last Filed: 10/24/19 21:11> Medical Records Attestation: I reviewed the patient's medical records. Lab Data Attestation: I reviewed the patient's lab results. Result diagrams: 10/24/19 19:00 10/24/19 19:00 Labs: Lab Results 10/24/19 10/24/19 Range/Units 19:00 19:00 WBC 16.5 H (4.5-11.0) X10^3/uL RBC 4.82 (4.5-5.9) X10^6/uL Hgb 11.9 L (13.5-17.5) g/dL Hct 37.6 L (41-53) % MCV 78.1 L (80-100) fL MCH 24.8 L (26-34) PG MCHC 31.8 (30-36) % RDW 18.8 H (11.6-14.8) % Plt Count 566 H (150-400) X10^3/uL Neut % (Auto) 81.9 H (50-75) % Lymph % (Auto) 7.2 L (25-40) % Rosebud % (Auto) 7.5 (3-14) % Eos % (Auto) 2.3 (2-4) % Baso % (Auto) 1.1 (0-2) % Neut # (Auto) 85254 H (1690-4328) /uL Lymph # (Auto) 1200 (0243-0916) /uL Rosebud # (Auto) 1200 H (0-900) /uL Eos # (Auto) 400 (0-450) /uL Baso # (Auto) 200 H (0-100) /uL Sodium 134 L (137-145) mmol/L Potassium 4.1 (3.4-5.1) mmol/L Chloride 102 (98-107) mmol/L Carbon Dioxide 25 (22-32) mmol/L BUN 20 (9-20) mg/dL Creatinine 1.11 (0.66-1.25) mg/dL Estimated GFR > 60.0 (>60) mL/min BUN/Creatinine Ratio 18.0 (6-22) Glucose 164 H (80-110) mg/dL Calcium 9.0 (8.4-10.2) mg/dL Total Bilirubin 0.4 (0.2-1.3) mg/dL AST 37 (17-59) IU/L ALT 40 (<50) IU/L Alkaline Phosphatase 117 (38-126) U/L Total Creatine Kinase < 20 L (55-170) U/L CK-MB (CK-2) TNP CK-MB (CK-2) Rel Index TNP Troponin I < 0.012 (0.01-0.034) ng/mL Total Protein 7.3 (6.3-8.2) g/dL Albumin 3.5 (3.5-5.0) g/dL Globulin 3.8 (1.7-4.1) g/dL Albumin/Globulin Ratio 0.9 L (1.0-2.8) Imaging Data Chest x-ray: Radiologist's Impression: [address] [address] XRay Report Signed Patient: Yash Davila [facility]#: [id number] : 5Acct:[id number] Age/Sex: 64 / MDate of Service: 10/24/19 Loc: ED Accession Number: [id number] Procedure: XR chest 1V Ordering Provider: Tomasa Crawford PROCEDURE: XR CHEST 1V INDICATIONS: Sycope TECHNIQUE: One view of the chest was acquired. COMPARISON: [facility], , XR CHEST 1V, 10/14/2019, 20:35. FINDINGS: Surgical changes and devices: Left Port-A-Cath is unchanged in position. Lungs and pleura: Chronic interstitial changes are present. There is a persistent appearance of a cavitary right apical focus. Trace right effusion. Mediastinum: Mediastinal contours appear normal. Heart size is normal. Bones and chest wall: No suspicious bony lesions. Overlying soft tissues appear unremarkable. IMPRESSION: Persistent cavitary right apical lesion. Otherwise, stable interval exam. Dictated by: Alexandra Cast M.D. on 10/24/2019 at 19:33 Approved by: Alexandra Cast M.D. on 10/24/2019 at 19:[address]: Radiologist's Impression: [place] [address] CT Scan Report Signed Patient: Yash Davila [facility]#: [id number] : 5Acct:[id number] Age/Sex: 64 / MDate of Service: 10/24/19 Loc: ED Accession Number: [id number] Procedure: CT head/brain wo con Ordering Provider: Tomasa Crawford PROCEDURE: CT HEAD/BRAIN WO CON INDICATIONS: FAll, head injury TECHNIQUE: Noncontrast 4.5 mm thick angled axial sections acquired from the foramen magnum to the vertex, with coronal and sagittal reformats. For radiation dose reduction, the following was used: automated exposure control, adjustment of mA and/or kV according to patient size. COMPARISON: [facility], MR, BRAIN W&WO CONTRAST, 08/14/2015, 18:23. FINDINGS: Image quality: Excellent. CSF spaces: Basal cisterns are patent. No extra-axial fluid collections. Ventricles are normal in size and shape. Brain: No midline shift. No intracranial masses or hemorrhage. [place]-white matter interface is normal. Skull and face: Calvarium and visualized facial bones are intact, without suspicious lesions. Sinuses: Visualized sinuses and mastoids are clear. IMPRESSION: 1. No acute intracranial process. Dictated by: Alexandra Cast M.D. on 10/24/2019 at 19:11 Approved by: Alexandra Cast M.D. on 10/24/2019 at 19:[address]: Radiologist's Impression: [address] [address] [address] Scan Report Signed Patient: Yash Davila [facility]#: [id number] : 5Acct:[id number] Age/Sex: 64 / MDate of Service: 10/24/19 Loc: ED Accession Number: [id number] Procedure: CT cervical spine wo con Ordering Provider: Tomasa Crawford PROCEDURE: CT CERVICAL SPINE WO CON INDICATIONS: Neck Pain TECHNIQUE: Noncontrast 3 mm thick sections acquired from the skull base to the T4 level. Sagittal and coronal reformats were then constructed. For radiation dose reduction, the following was used: automated exposure control, adjustment of mA and/or kV according to patient size. COMPARISON: [facility], CT, CT CHEST WITH CONTRAST, 09/13/2019, 2:34. [facility], MR, MR THORACIC SPINE WO/W CON, 09/04/2019, 14:30. [facility], CT, CT HEAD/BRAIN WO CON, 10/24/2019, 18:52. FINDINGS: Image quality: Excellent. Bones: No fractures or dislocations. Visualized superior ribs are intact. Anterior fusion is present at C5-6. There is a destructive process along the inferior endplate of T2 and superior endplate of T3 with some fragmented margins. This was identified on MRI thoracic spine of 09/04/2019. Soft tissues: Prevertebral soft tissues are normal in thickness. No paravertebral hematomas. No apical pneumothoraces. Prominent cavitation is noted within the right apex. It is noted that on prior exam, area of cavitation and fluid was present. Adjacent areas of osseous rib destruction are again noted. REFERENCE TEXT DELETE FROM FINAL REPORT Craniocervical Injury Classification: Occipital condyle fractures: * Type I: axial loading with minimal displacement; stable. * Type II: skull base fx extending through condyle; stable. * Type III: alar ligament avulsion fx:; unstable. [place] fractures (Hossein): * Type I: posterior arches; stable. * Type II: anterior arch; stable. * Type III: bilat posterior arch with bilateral/unilateral anterior arch (Hossein burst); potentially unstable depending on transverse ligament integrity. * Type IV: lateral mass fx; stable. * Type V: transverse anterior arch avulsion fx; stable. Odontoid fractures: * Type I: alar ligament oblique avulsion fx through tip; stable. * Type II: dens-body junction; unstable. Risk factors for non-union: age >50 years, >6 mm displacement, or comminution at fracture site. * Type III: thru cancellous portion of dens body; can cause canal compromise. Hangman fractures: * Type I: hairline fx with <2 mm translation; stable. * Type II: angulation >11 degrees, > 2 mm translation; can be unstable. * Type IIa: severe angulation w/o translation (intact ALL); unstable. * Type III: bilateral facet dislocation; unstable. Atlantoaxial rotatory subluxation and fixation: * Type I: rotatory fixation with dens as pivot point, intact alar & transverse ligaments. * Type II: transverse ligament torn, center of rotation shifts to lateral mass, <5 mm anterior displacement of atlas; unstable. * Type III: transverse and alar ligaments torn, similar to type II but with >5 mm anterior displacement of atlas; unstable. * Type IV: deficient odontoid, with posterior displacement of atlas; unstable. Subaxial Injury Classification: SLIC Scoring System. Morphology: * No abnormality: 0 * Compression: 1 * Burst: 2 * Distraction: 3 (dislocation in the vertical axis, from hyperextension or hyperflexion). Hyperflexion-distraction criteria: facet overlap <50%, facet diastasis > 2mm, posterior disk spac widening with angulation >11 degrees. * Translation or rotation: 4. Rotation criteria: listhesis >3.5 mm but <50% of caudal vertebral body width. Translation criteria: listhesis >3.5 mm and usually >50% of caudal vertebral body width. Discoligamentous complex: insurance advisor from abnormal bony relationships on CT. * Intact: 0 * Indeterminate: 1 * Disrupted: 2 Neurologic status: * Intact: 0 * Root injury: 1 * Complete cord injury: 2 * Incomplete cord injury: 3 * Incomplete cord injury with compression: 4 Total SLIC score: 3 or less is non-surgical, 4 is indeterminate, 5 or more is surgical. IMPRESSION: 1. No acute osseous abnormality. 2. Destructive appearance at T2 and T3, as identified on prior exam most concerning for metastatic involvement. 3. Expansion of previous cavitary right apical lesion. Dictated by: Alexandra Cast M.D. on 10/24/2019 at 19:13 Approved by: Alexandar Cast M.D. on 10/24/2019 at 19:16 wrist: Radiologist's Impression: [address] [address] XRay Report Signed Patient: Yash Davila [facility]#: [id number] : 5Acct:[id number] Age/Sex: 64 / MDate of Service: 10/24/19 Loc: ED Accession Number: [id number] Procedure: XR wrist LT min 3V Ordering Provider: Tomasa Crawford PROCEDURE: XR WRIST LT MIN 3V INDICATIONS: L wrist pain post fall TECHNIQUE: 4 views of the wrist were acquired. COMPARISON: None. FINDINGS: Bones: No fractures or dislocations. No suspicious bony lesions. Scaphoid view: No visualized fracture. Soft tissues: No suspicious soft tissue calcifications. IMPRESSION: No visualized acute fracture or dislocation. However, if clinical concern and/or pain persist, short interval imaging followup in 7-10 days is recommended, as occult injury cannot be definitively excluded. Dictated by: Alexandra Cast M.D. on 10/24/2019 at 19:32 Approved by: Alexandra Cast M.D. on 10/24/2019 at 19:33 ECG Data Interpretation: 1924: Sinus rhythm with PVCs. Rate 80, AK interval 151, QTC 390. No ST elevation or ST depression. No T-wave inversion. EKG also viewed by Dr. Chamorro per protocol. MDM Narrative Medical decision making narrative: 64yo male with lung CA with bone metastasis with known orthostatic hypotension, presents to the emergency department for syncopal episode. Patient reports brief episode of syncope unprovoked by a fall. Increased concern for cardiac syncope versus orthostatic hypotension, patient was clearly orthostatic hypotensive here in the emergency department with increased tachycardia, dizziness, and low blood pressure. Patient was administered fluids. No acute EKG changes, negative troponin. Negative head and neck CT rule out cranial etiology or neck fractures. No signs of infection such as tachycardia or fevers. No pneumonia seen and chest x-ray. Patient does have an elevated white blood cell count which may be related to his lung CA. After discussion with hospitalist, patient was admitted for observation for further workup and evaluation. <Bhavik Chamorro DO - Last Filed: 10/25/19 02:36> Lab Data Labs: Lab Results 10/24/19 10/24/19 Range/Units 19:00 19:00 WBC 16.5 H (4.5-11.0) X10^3/uL RBC 4.82 (4.5-5.9) X10^6/uL Hgb 11.9 L (13.5-17.5) g/dL Hct 37.6 L (41-53) % MCV 78.1 L (80-100) fL MCH 24.8 L (26-34) PG MCHC 31.8 (30-36) % RDW 18.8 H (11.6-14.8) % Plt Count 566 H (150-400) X10^3/uL Neut % (Auto) 81.9 H (50-75) % Lymph % (Auto) 7.2 L (25-40) % Rosebud % (Auto) 7.5 (3-14) % Eos % (Auto) 2.3 (2-4) % Baso % (Auto) 1.1 (0-2) % Neut # (Auto) 62506 H (4591-6471) /uL Lymph # (Auto) 1200 (9009-9646) /uL [place] # (Auto) 1200 H (0-900) /uL Eos # (Auto) 400 (0-450) /uL Baso # (Auto) 200 H (0-100) /uL Sodium 134 L (137-145) mmol/L Potassium 4.1 (3.4-5.1) mmol/L Chloride 102 (98-107) mmol/L Carbon Dioxide 25 (22-32) mmol/L BUN 20 (9-20) mg/dL Creatinine 1.11 (0.66-1.25) mg/dL Estimated GFR > 60.0 (>60) mL/min BUN/Creatinine Ratio 18.0 (6-22) Glucose 164 H (80-110) mg/dL Calcium 9.0 (8.4-10.2) mg/dL Total Bilirubin 0.4 (0.2-1.3) mg/dL AST 37 (17-59) IU/L ALT 40 (<50) IU/L Alkaline Phosphatase 117 (38-126) U/L Total Creatine Kinase < 20 L (55-170) U/L CK-MB (CK-2) TNP CK-MB (CK-2) Rel Index TNP Troponin I < 0.012 (0.01-0.034) ng/mL Total Protein 7.3 (6.3-8.2) g/dL Albumin 3.5 (3.5-5.0) g/dL Globulin 3.8 (1.7-4.1) g/dL Albumin/Globulin Ratio 0.9 L (1.0-2.8) Discharge Plan Departure Patient Disposition: Admitted as Observation Clinical Impression: Orthostatic hypotension Syncope Qualifiers: Syncope type: unspecified Qualified Code(s): R55 - Syncope and collapse Laceration of head Qualifiers: Encounter type: initial encounter Location of open wound of head: scalp Foreign body presence: without foreign body Qualified Code(s): S01.01XA - Laceration without foreign body of scalp, initial encounter Discharge Date/Time: 10/24/19 21:25 Admit Date/Time: 10/24/19 20:17 Admit Provider: Yash Barbosa <Bhavik Chamorro DO - Last Filed: 10/25/19 02:36> Cosign ED Attending Cosignature Attestation: I was immediately available in the department for consultation. This documentation has been reviewed and I agree with assessment and plan. Supervised by Bhavik Chamorro DO
[2019-10-24 19:06] LABS: Add Manual Diff / Slide Review NO; Basophils Absolute Auto 200 /uL (0-100); Basophils Percent Auto 1.1 % (0-2); Eosinophils Absolute Auto 400 /uL (0-450); Eosinophils Percent Auto 2.3 % (2-4); Hematocrit 37.6 % (41-53); Hemoglobin 11.9 g/dL (13.5-17.5); Lymphocytes Absolute Auto 1200 /uL (1100-4500); Lymphocytes Percent Auto 7.2 % (25-40); Mean Corpuscular HGB Conc 31.8 % (30-36); Mean Corpuscular Hemoglobin 24.8 PG (26-34); Mean Corpuscular Volume 78.1 fL (80-100); Monocytes Absolute Auto 1200 /uL (0-900); Monocytes Percent Auto 7.5 % (3-14); Neutrophils Absolute Auto 13500 /uL (1500-7000); Neutrophils Percent Auto 81.9 % (50-75); Platelet Count 566 X10^3/uL (150-400); Red Blood Cell Count 4.82 X10^6/uL (4.5-5.9); Red Cell Distribution Width 18.8 % (11.6-14.8); White Blood Cell Count 16.5 X10^3/uL (4.5-11.0)
[2019-10-24 19:18] LABS: Alanine Aminotransferase 40 IU/L (<50); Albumin 3.5 g/dL (3.5-5.0); Albumin Globulin Ratio 0.9 (1.0-2.8); Alkaline Phosphatase 117 U/L (38-126); Aspartate Aminotransferase 37 IU/L (17-59); Bilirubin Total 0.4 mg/dL (0.2-1.3); Blood Urea Nitrogen 20 mg/dL (9-20); Carbon Dioxide 25 mmol/L (22-32); Chloride 102 mmol/L (98-107); Creatine Kinase < 20 U/L (55-170); Estimated Glomerular Filt Rate > 60.0 mL/min (>60); Globulin 3.8 g/dL (1.7-4.1); Glucose 164 mg/dL (80-110); HEMOLYSIS < 15 (0-50); Potassium 4.1 mmol/L (3.4-5.1); Sodium 134 mmol/L (137-145); Total Protein 7.3 g/dL (6.3-8.2)
[2019-10-24 19:30] LABS: Troponin I < 0.012 ng/mL (0.01-0.034)
[2019-10-24] MEDS: SODIUM CHLORIDE 0.9% 1,000 ML 999 ML IV (20:48)
[2019-10-24] MEDS: BACITRACIN OINT 0.9 GM PCKT 1 APPLIC TOP (21:26)
--- NOTE | 2019-10-24 21:37 | PC.NURSE ---
His skin tears on left arm were cleaned with soap and water and bacitracin and tegaderm dressings applied.
[2019-10-24 21:53] LABS: COVID19 -Nasal RAPID Negative (Negative)
[2019-10-24] MEDS: SODIUM CHLORIDE 0.9% 1,000 ML 150 ML IV (23:13)
--- NOTE | 2019-10-24 23:52 | PM.HP.1 ---
History of Present Illness History of Present Illness Date Patient Seen: 10/24/19 Time Patient Seen: 23:44 Chief complaint: Fell, Head and Arm Laceration Narrative: Mr. Yash Davila is a 64-year-old male with history significant for COPD with right upper lobe cavitation, history of lung cancer status post chemotherapy, DVT right upper extremity no longer on anticoagulation, chronic right chest and back pain, peripheral neuropathy, GERD, hypothyroidism and depression who presents to the ER following a ground level fall secondary to a syncopal episode. The patient reports he was walking and the next thing he knew he was on the ground. He felt no presyncope or antecedent symptoms. He denies headaches or dizziness and has had no visual changes, ataxia, chest pain, nausea or diaphoresis. The patient had been admitted to [facility] for COPD exacerbation with community-acquired pneumonia from 10/15/2019 to 10/19/2019. The patient states that he feels he has recovered well. She reports no fevers or chills, headaches or dizziness, nasal congestion or sore throat. He has significant right-sided chest pain from his cancer and metastases to ribs that is tender to touch. He denies complaints of palpitations. Has chronic shortness of breath and is on home O2. He has a chronic productive cough. Denies complaints of abdominal pain or heartburn, nausea vomiting, diarrhea or constipation. Reports no difficulty urinating. Upon arrival to the ER patient is temperature 99.5?, heart rate 96, blood pressure 117/78, respirations 22 saturating 99% on 2 L nasal cannula. A CT of the head is obtained which finds no acute acute intracranial processes. X-ray of the left wrist obtained finding no fracture or dislocation. On laboratory analysis he has white count of 16.5, hemoglobin 11.9, hematocrit of 37.6, platelets of 566. His electrolytes are within normal range with a BUN of 20 and creatinine 1.11. His nonfasting glucose is 164. His total CK is less than 20 is troponin is less than 0.012. In the ER the patient receives normal saline and his forehead lack is sutured. Patient is admitted to the medicine service for syncope. Patient History Medical History COPD (chronic obstructive pulmonary disease) (Chronic) Depression (Acute) DVT of upper extremity (deep vein thrombosis) (Acute) GERD (gastroesophageal reflux disease) (Acute) Hypothyroid (Chronic) Lung cancer, primary, with metastasis from lung to other site (Chronic) PEG (percutaneous endoscopic gastrostomy) adjustment/replacement/removal (Acute) Peripheral neuropathy (Acute) Tobacco dependence (Acute) Surgical History History of lung biopsy (Acute) Family & Social History Family History Mother Congestive heart failure Father Unknown family medical history Social History: household members spouse,caregiver,other Prior Living Arrangements Mobile home Safety & Behavioral: Feels Safe in Current Yes Environment Been Physically Hurt or No Threatened By a Person Suicidal Ideation Description None Suicide Plan Description No Plan Tobacco & Substance use: Tobacco type cigarettes Smoking Status Current every day smoker Smoking packs per day 0.25 alcohol intake former alcohol intake frequency holiday/special occasion Substance Use Type does not use Meds Home Medications and Allergies Home Medications Medication Instructions Recorded Confirmed Type albuterol sulfate [ProAir HFA] 1 puff INH Q6H 03/18/18 10/24/19 History ipratropium-albuterol 3 ml INH Q4HR PRN #40 ml 03/20/18 10/24/19 Rx sertraline [Zoloft] 75 mg PO DAILY 06/23/18 10/24/19 History levothyroxine 150 mcg PO DAILY #90 tab 04/11/19 10/24/19 Rx pregabalin [Lyrica] 50 mg PO TID #90 cap 04/11/19 10/24/19 Rx alprazolam [Xanax] 0.5 mg PO BEDTIME PRN #2 tab 08/24/19 10/24/19 Rx oxycodone 20 mg PO Q4H PRN #180 tab 09/18/19 10/24/19 Rx fentanyl 1 patch TRANSDERMAL Q72H #4 ea 10/19/19 10/24/19 Rx fluticasone propion-salmeterol 1 puff INH BID 30 Days #1 each 10/19/19 10/24/19 Rx [Advair Diskus] tramadol 50 mg PO BID PRN #60 tab 10/19/19 10/24/19 Rx Allergies Allergy/AdvReac Type Severity Reaction Status Date / Time aspirin [ASPIRIN] AdvReac Mild NAUSEA Verified 09/01/19 14:15 Review of Systems Review of Systems ROS: Yes All systems reviewed with the patient and are negative except as otherwise documented Exam Vital Signs (past 8 hours): - 10/24/19 18:49 10/24/19 19:16 10/24/19 19:30 Temperature 99.5 F Pulse Rate 96 H 85 79 Pulse Rate [Orthostatic Lying] Pulse Rate [Orthostatic Sitting] Pulse Rate [Orthostatic Standing] Respiratory Rate 22 21 Blood Pressure 117/78 Blood Pressure [Orthostatic Lying] Blood Pressure [Orthostatic Sitting] Blood Pressure [Orthostatic Standing] Pulse Oximetry 99 95 10/24/19 19:35 10/24/19 19:40 10/24/19 19:45 Temperature Pulse Rate 80 78 79 Pulse Rate [Orthostatic Lying] Pulse Rate [Orthostatic Sitting] Pulse Rate [Orthostatic Standing] Respiratory Rate 20 24 21 Blood Pressure Blood Pressure [Orthostatic Lying] Blood Pressure [Orthostatic Sitting] Blood Pressure [Orthostatic Standing] Pulse Oximetry 96 95 94 10/24/19 19:50 10/24/19 19:55 10/24/19 20:00 Temperature Pulse Rate 76 71 69 Pulse Rate [Orthostatic Lying] Pulse Rate [Orthostatic Sitting] Pulse Rate [Orthostatic Standing] Respiratory Rate 18 17 18 Blood Pressure Blood Pressure [Orthostatic Lying] Blood Pressure [Orthostatic Sitting] Blood Pressure [Orthostatic Standing] Pulse Oximetry 96 96 96 10/24/19 20:05 10/24/19 20:10 10/24/19 20:29 Temperature Pulse Rate 69 69 73 Pulse Rate [Orthostatic Lying] Pulse Rate [Orthostatic Sitting] Pulse Rate [Orthostatic Standing] Respiratory Rate 21 16 19 Blood Pressure 104/59 L Blood Pressure [Orthostatic Lying] Blood Pressure [Orthostatic Sitting] Blood Pressure [Orthostatic Standing] Pulse Oximetry 96 97 99 10/24/19 20:30 10/24/19 20:31 10/24/19 20:32 Temperature Pulse Rate 76 84 90 Pulse Rate [Orthostatic Lying] Pulse Rate [Orthostatic Sitting] Pulse Rate [Orthostatic Standing] Respiratory Rate 31 H 26 H 29 H Blood Pressure 92/56 L 82/51 L Blood Pressure [Orthostatic Lying] Blood Pressure [Orthostatic Sitting] Blood Pressure [Orthostatic Standing] Pulse Oximetry 99 97 97 10/24/19 20:34 10/24/19 20:37 10/24/19 21:35 Temperature 97.7 F Pulse Rate 68 62 Pulse Rate [Orthostatic Lying] 74 Pulse Rate [Orthostatic Sitting] 75 Pulse Rate [Orthostatic Standing] 88 Respiratory Rate 20 18 Blood Pressure 115/66 Blood Pressure [Orthostatic Lying] 104/59 L Blood Pressure [Orthostatic Sitting] 92/56 L Blood Pressure [Orthostatic Standing] 82/51 L Pulse Oximetry 100 99 10/24/19 23:11 Temperature Pulse Rate 68 Pulse Rate [Orthostatic Lying] Pulse Rate [Orthostatic Sitting] Pulse Rate [Orthostatic Standing] Respiratory Rate 20 Blood Pressure Blood Pressure [Orthostatic Lying] Blood Pressure [Orthostatic Sitting] Blood Pressure [Orthostatic Standing] Pulse Oximetry 99 Oxygen Delivery Method Nasal Cannula Oxygen Flow Rate 2 Narrative Exam Narrative: GENERAL APPEARANCE: Well-developed, chronically ill-appearing and cachectic, male in no acute distress. SKIN: Skin is warm dry and pink, 4 cm laceration left forehead at the hairline, abrasion left wrist and left elbow. HEENT: Normocephalic, GUILLERMINA, extraocular muscles are intact without nystagmus, no malocclusion, oropharynx is clear and mucous membranes are moist, NECK: Supple nontender to palpation, no step-offs, no thyromegaly, trachea midline. CHEST: Normal AP diameter and normal contour without any kyphoscoliosis. Left-sided Port-A-Cath without erythema or induration. LUNGS: Breath sounds coarse on right side improving with cough, decreased breath sounds right chest with she adult tidal volume. CARDIOVASCULAR: There was a regular rate and rhythm without any murmurs, gallops, rubs, 2+ peripheral pulses, brisk capillary refill, no edema. ABDOMEN: Soft and nontender with normal bowel sounds no organomegaly, flank or suprapubic pain MUSCULOSKELETAL: Moves all extremities, pain on range of motion left wrist without crepitus or deformity. NEUROLOGIC: Alert and oriented x 3. Normal affect. Strength is 5/5 in all extremities and symmetrical. Objective Labs Result Diagrams: 10/25/19 04:00 10/25/19 04:00 Labs: Laboratory Results - last 24 hr 10/24/19 10/24/19 10/24/19 19:00 19:00 20:50 WBC 16.5 H RBC 4.82 Hgb 11.9 L Hct 37.6 L MCV 78.1 L MCH 24.8 L MCHC 31.8 RDW 18.8 H Plt Count 566 H Neut % (Auto) 81.9 H Lymph % (Auto) 7.2 L Webster % (Auto) 7.5 Eos % (Auto) 2.3 Baso % (Auto) 1.1 Neut # (Auto) 13149 H Lymph # (Auto) 1200 Webster # (Auto) 1200 H Eos # (Auto) 400 Baso # (Auto) 200 H Sodium 134 L Potassium 4.1 Chloride 102 Carbon Dioxide 25 BUN 20 Creatinine 1.11 Estimated GFR > 60.0 BUN/Creatinine Ratio 18.0 Glucose 164 H Calcium 9.0 Total Bilirubin 0.4 AST 37 ALT 40 Alkaline Phosphatase 117 Total Creatine Kinase < 20 L CK-MB (CK-2) TNP CK-MB (CK-2) Rel Index TNP Troponin I < 0.012 Total Protein 7.3 Albumin 3.5 Globulin 3.8 Albumin/Globulin Ratio 0.9 L COVID-19 PCR Negative Assessment & Plan Assessment & Plan narrative: This is a 64-year-old male patient who sustained a syncopal episode and apparently falling on his left side with abrasions left wrist elbow and a laceration to his left forehead. The patient reports no antecedent symptoms. 1. Ground level fall secondary to syncopal episode, present on admission, active. -the patient reports a fall from standing with no antecedent symptoms. He reports no such prior events. -the patient has had baseline level of function and presents no lateralizing symptoms. -laboratory studies are unremarkable except for an elevated white count at 16.5 which is improving from prior admission. -CT of the head shows no acute intracranial processes and wrist x-ray shows no fracture dislocation. -the patient has no previous diagnosed cardiac conditions and will be on telemetry. -will obtain echocardiogram in the morning. 2. Chronic hypoxic respiratory failure, present on admission, stable -patient is satting 99% on 2 L of nasal cannula oxygen. -patient reports chronic right chest pain related to cancerous lesion. -He states his breathing is at baseline and continues to have productive cough which is unchanged.. 3. Community acquired pneumonia, resolving -the patient states he has completed his course of antibiotics. He denies fevers or chills and describes breathing is at baseline -white count remains elevated at 16.5 and may be related to current trauma. -will recheck CBC in the morning 4. Right upper lobe cavitary lesion, present on admission, stable -He has previously had negative cultures on bronchoscopy end of April at [place]. -patient has had productive cough with yellow sputum for 1 month since having been taken off suppressive antibiotics. -repeat sputum culture showed mixed resident aniket. -course of Levaquin has been completed. 5. Chronic right axillary DVT, present on admission, stable -continuing right upper arm pain, Xarelto discontinued due to hemoptysis. -patient is intolerant of aspirin. -the patient was on Lovenox while admitted and not carried into outpatient care. 6. Metastatic adenocarcinoma -chronic right chest pain due to rib metastases -Under the care of Dr. Thomas Young, apparently wishes to start immunotherapy -per Dr. Young the plan was to begin immunotherapy with Nivolumab on 09/21/2019, is unclear the patient's therapy has been started. -Will continue 20 mg oxycodone IR per discharge home regimen. -patient has been referred to palliative care. 7. Acquired hypothyroidism, chronic, present on admission, stable. -continue home regimen of levothyroxine 150 mcg daily. 8. Severe protein malnutrition with a bmi 18.3 -patient's BMI is improved from 17.9 to 18.3. 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 Diet: High-protein, regular diet with Ensure. Code status: FULL CODE. The patient designates Tomasa Davila to be his surrogate decision maker. The patient is admitted to the hospital for further evaluation and monitoring for syncope. The patient is admitted as observation with expected length of stay to be less than 2 midnights. COVID-19 COVID-19 status: Negative Result date/Date tested (Pos, Neg/Pending): 10/24/19
[2019-10-24] MEDS: ALBUTEROL/IPRATROPIUM 3 ML AMPUL INH (23:59)
[2019-10-25] VITALS (12 sets, daily range): BP systolic 84–113; BP diastolic 46–89; PULSE 62–98; RESP 16–22; TEMP 36.2–37.1; O2SAT 90–100
[2019-10-25] MEDS: SODIUM CHLORIDE 0.9% 1,000 ML 100 ML IV ×3 (00:40→21:14)
[2019-10-25] MEDS: PREGABALIN 50 MG CAPSULE PO ×4 (00:42→21:14)
[2019-10-25] MEDS: OXYCODONE IR 10 MG TABLET 20 MG PO ×5 (00:46→22:14)
--- NOTE | 2019-10-25 03:50 | PC.NURSE ---
[employer]. called reported pt's. had 20 seconds runs of V-tach. Checked pt. he was sound asleep, but roused easily. Denies any CP or heart palpitations VS B/P 113/54 & HR 64 2 liters 02/NC 100%, turned 02 down to 1 liter & SPO2 96-97%. GEORGE Barbosa notified, will continue POC & monitor.
[2019-10-25 04:11] LABS: Add Manual Diff / Slide Review NO; Basophils Absolute Auto 200 /uL (0-100); Basophils Percent Auto 1.3 % (0-2); Eosinophils Absolute Auto 400 /uL (0-450); Eosinophils Percent Auto 3.2 % (2-4); Hematocrit 31.7 % (41-53); Lymphocytes Absolute Auto 1400 /uL (1100-4500); Lymphocytes Percent Auto 11.4 % (25-40); Mean Corpuscular HGB Conc 31.7 % (30-36); Mean Corpuscular Hemoglobin 24.9 PG (26-34); Mean Corpuscular Volume 78.4 fL (80-100); Monocytes Absolute Auto 1000 /uL (0-900); Neutrophils Absolute Auto 9000 /uL (1500-7000); Neutrophils Percent Auto 76.1 % (50-75); Platelet Count 444 X10^3/uL (150-400); Red Blood Cell Count 4.04 X10^6/uL (4.5-5.9); Red Cell Distribution Width 18.6 % (11.6-14.8); White Blood Cell Count 11.9 X10^3/uL (4.5-11.0)
[2019-10-25 04:17] LABS: Creatine Kinase < 20 U/L (55-170)
[2019-10-25 04:18] LABS: BUN Creatinine Ratio 19.8 (6-22); Blood Urea Nitrogen 19 mg/dL (9-20); Calcium 8.1 mg/dL (8.4-10.2); Carbon Dioxide 29 mmol/L (22-32); Chloride 106 mmol/L (98-107); Estimated Glomerular Filt Rate > 60.0 mL/min (>60); Glucose 85 mg/dL (80-110); HEMOLYSIS < 15 (0-50); Magnesium 1.9 mg/dL (1.6-2.3); Potassium 4.4 mmol/L (3.4-5.1); Sodium 135 mmol/L (137-145)
[2019-10-25 04:41] LABS: Troponin I < 0.012 ng/mL (0.01-0.034)
[2019-10-25] MEDS: ALBUTEROL/IPRATROPIUM 3 ML AMPUL INH ×3 (07:34→19:46)
[2019-10-25] MEDS: LEVOTHYROXINE 150 MCG TABLET PO (09:15)
[2019-10-25] MEDS: ENOXAPARIN 40 MG/0.4 ML SYRINGE SUBCUT (09:17)
[2019-10-25] MEDS: SERTRALINE 50 MG TABLET 75 MG PO (09:18)
[2019-10-25] MEDS: SODIUM CHLORIDE 0.9% FLUSH 10 ML IV (09:18)
[2019-10-25] MEDS: MAGNESIUM OXIDE 400 MG TABLET PO (09:21)
--- NOTE | 2019-10-25 10:02 | PC.NURSE ---
Addendum entered by Sondra Bautista R.N. 10/25/19 15:01: Patient coughing some, getting breathing treatment now. Orthostatic blood pressures done and patient did drop to 80s/50s. He has a 500cc bolus of ns going now and then will be on maintenance fluid of 100cc/hr. Original Note: Patient was medicated with 20mg of oxycodone at 0700 and this has kept patient comfortable. He is thin and frail, patient has bruises, a laceration to his forehead, and skin tears to arms as he had a fall from a syncopal episode. Patient is weak and has refused to get up, we will attempt to get patient up for his orthostatic blood pressures around 1100am. VSS, patient took all of his po medication without difficulty and is eating at meals.
--- NOTE | 2019-10-25 10:47 | DI.ECHO.S_ITS ---
Version: 1 Study ID: [id number] Name: RON CARCAMO Study Date: 10/25/2019, 10: 47 AM : 1955 BP: 107 / 56 mmHg Gender: Male Height: 72 in Age: 64 Years Weight: 135 lb BSA: 1.80 m?? [facility] Referring: RON BACK Clinician: Tania Vyas Reason For Study: SYNCOPE History: Summary Statements Left ventricular wall thickness is mildly increased. Left ventricular systolic function is normal without focal wall motion abnormalities. The ejection fraction is estimated to be 65-70%. Diastolic parameters suggest probable normal left ventricular diastolic function and normal filling pressures. The right ventricle appears grossly normal in size and function in parasternal views. The left atrial size is normal. Right atrium not well visualized secondary to technical limitations. The right atrium grossly appears normal in size. There is likely prolapse of the posterior mitral valve leaflet(s), however it is difficult to visualize. There is mild mitral regurgitation. There is no other significant valvular heart disease. The aortic root is normal size. Procedure: A two-dimensional transthoracic echocardiogram with color flow and Doppler was performed. The study quality was technically difficult. The study quality was technically limited. Comparison is made with the echocardiogram of 01/31/2018. Respiratory artifact seen throughout apical window. The patient was in sinus rhythm with heart rates between 65-75 bpm during the exam. Left Ventricle: The left ventricle is normal in size. Left ventricular wall thickness is mildly increased. Left ventricular systolic function is normal without focal wall motion abnormalities. The ejection fraction is estimated to be 65-70%. Diastolic parameters suggest probable normal left ventricular diastolic function and normal filling pressures. Right Ventricle: The right ventricle is not well visualized. The right ventricle appears grossly normal in size and function in parasternal views. Atria: The left atrial size is normal. Right atrium not well visualized secondary to technical limitations. The right atrium grossly appears normal in size. There is no Doppler evidence for an interatrial shunt. Mitral Valve: There is likely prolapse of the posterior mitral valve leaflet(s), however it is difficult to visualize. There is mild mitral regurgitation. Aortic Valve: The aortic valve is trileaflet. The aortic valve opens well. There is no aortic valve stenosis. No aortic regurgitation is present. Tricuspid Valve: The tricuspid valve is not well visualized, but is grossly normal. There is a trace or physiologic amount of tricuspid regurgitation. Pulmonary artery pressures cannot be estimated because of the lack of a measurable TR jet velocity but the IVC suggests a CVP of around 3 mmHg. Pulmonic Valve: The pulmonic valve leaflets are thin and pliable; valve motion is normal. There is no pulmonic valvular regurgitation. There is no other significant valvular heart disease. Great Vessels: The aortic root is normal size. The ascending aorta is mildly enlarged. The IVC is of normal diameter and collapses greater than 50% with a sniff. This suggests a low right atrial pressure of 3 mm Hg. Pericardium/ Pleura: There is no pericardial effusion. There is no pleural effusion. 2D and M-Mode Measurements and Calculations LVIDd: 4.4 cm AoV Openin.82 cm LVIDs: 2.7 cm LVOT diam: 2.25 cm IVSd: 1.18 cm Ao root diam: 3.5 cm LVPWd: 1.20 cm asc Aorta Diam: 3.4 cm LV colunga. diameter/BSA (cm/m^2): 2.43 Ao Arch Diam (Prox Trans): 2.7 cm LV sys. diameter/BSA (cm/m^2): 1.52 EPSS: 0.49 cm IVC diam: 1.09 cm LA A4 area: 12.8 cm?? LA A2 area: 14.6 cm?? LA length (vol): 4.6 cm LA vol: 34.2 ml LA vol index: 19.0 ml/m?? Doppler Measurements and Calculations Ao V2 max: 95.8 cm/sec LVOT Max David: 86.1 cm/sec Ao V2 mean: 57.9 cm/sec LV V1 max P.0 mmHg Ao V2 VTI: 19.8 cm LV V1 VTI: 20.8 cm Ao max P.7 mmHg Ao mean P.64 mmHg ANGELES(I,D): 4.2 cm?? ANGELES(V,D): 3.6 cm?? ANGELES indexed to BSA (cm^2/m^2): 2.30 sev ratio: 1.05 MV E max david: 68.3 cm/sec MV dec time: 0.30 sec MV A max david: 71.5 cm/sec MV E/A: 0.96 Med Peak E' David: 9.4 cm/sec PA V2 max: 56.0 cm/sec PA mean P.68 mmHg Electronically signed by: Cordell Reece M.D. 10/25/2019, 3: 18 PM
--- NOTE | 2019-10-25 11:49 | CM.DANOTE ---
Patient is a 64 year old male READMIT on 10/24/19 for GLF/Syncope. Pt has [employer] and [employer] for insurance and his PCP is not listed. EMR was reviewed. Per MD, pt with hx of COPD, stage 4 lung cancer, and on home oxygen. Pt admitted with Syncope and here for heart monitoring with likely d/c later today or tomorrow pending stability. Pt was recently discharged home on 10/19/19 with delivery room supervisor Lakisha and new referral to [facility]. SW met bedside with pt and explained role and pt confirms that he felt good at discharge last week and received a call from [facility] and was determined between himself and [facility] that pt likely did not need HH at this time and they did not open pt to service. Pt states he would like to wait until closer to d/c to see how he is feeling to determine if he would like another HH referral. Currently pt with new bumps and bruises from falling and is sore but otherwise states he feels back to baseline. SW made [facility] referral to their [facility] program to determine if he meets criteria for a upper caser to follow pt in the outpt setting to better provide support with confirming he is following through with follow up appointments and providing additional support with resource and services. Plan: SW to follow closely for likely plan of return home with live-in CG Lakisha and ex- Tomasa and r/o HH. [facility] will determine if pt meets criteria for their community coordination program after discharge. JOSH Blank Discharge Planning/Care Management CM Discharge Assessment Start: 10/25/19 11:13 Freq: Status: Active Protocol: Document 10/25/19 11:13 BF (Rec: 10/25/19 11:28 [id number]) Discharge Planning Assessment Assigned Cardiology Fellow JOSH Green Advance Directives? Yes: POLST Advance Directives on File Yes: dated August 27: CPR Full Treatment/Medical Intervenitons History Provided By Patient,Medical Record Has Patient been admitted in last 30 Yes days? Comment Recent d/c home on 10/19/19 with new [facility] referral but pt is not currently open to service with them as they and he did not feel he was homebound or needing HH at that time. Prior Living Arrangements Mobile home Household Members spouse,caregiver Type of transporation used prior to Relies on Others admit Comment Lives at home with live in Lakisha and ex- Tomasa Independent with ADL's Yes: Somewhat Is patient alert and oriented? Yes Needs Assistance With Managing Medications,Home Chores / Shopping Caregiver for Another No Community Services used prior to Oxygen Therapy admission: Comment 2 canes and 4ww prn Patient/Family Preference Home with Home Health Comment Pt wants to wait until closer to d/c to determine if he would like another HH referral . Barriers to Discharge No Discharge Plan Home Community Services Oxygen Therapy Transportation Arrangement family Additional Comment Pending further assessment of DC needs Review Status In Process Please Provide Date Initial DC 10/25/19 Assessment Was Performed Next Review Type Continued Stay Review
--- NOTE | 2019-10-25 13:55 | DIET.PN ---
Dietary Progress Note Assessment: is a 64 y.o. male with home O2 dependent Stage IV lung cancer, COPD, history of sepsis, DVT, who presented 10/24/2019 as readmit after suffering GLF r/t syncope. HT: 175.26cm WT: 61.2kg (was 55kg on 10/15/2019 admission) UBW: 64kg BMI: 18.3 (underweight) Labs: O2: 53 BUN: 21 MNA: 6 Brian: 20 Nutrition Diagnosis: Severe chronic PCM r/t causes increasing nutrient needs due to illness aeb reports energy intake <75% EER > 1mo, stage 4 met cancer, weight loss 13.5% in 5 mo, BMI 17.9, NFPE subcutaneous fat loss of triceps, temporalis, clavicle, shoulder muscle wasting. Interventions: 1. ONS enure enlive BID. Patient agreeable. Diet Order: General, mech soft (easy chew) EER: [id number] shannan (30-33cal/kg for weight gain); 82g protein (1.5g/kg malnutr) Monitoring/Evaluations: weight, PO intake, ONS acceptance
--- NOTE | 2019-10-25 14:08 | PT.IIE ---
Surgical History (Last Reviewed 10/25/19 @ 06:08 by GEORGE Garza) History of lung biopsy (Acute) Medical History (Last Reviewed 10/25/19 @ 06:08 by GEORGE Garza) COPD (chronic obstructive pulmonary disease) (Chronic) Depression (Acute) DVT of upper extremity (deep vein thrombosis) (Acute) GERD (gastroesophageal reflux disease) (Acute) Hypothyroid (Chronic) Lung cancer, primary, with metastasis from lung to other site (Chronic) PEG (percutaneous endoscopic gastrostomy) adjustment/replacement/removal (Acute) Peripheral neuropathy (Acute) Tobacco dependence (Acute) Physical Therapy Inpatient Evaluation/Re-Eval M1 PT/OT-IP Prior Functional Status Start: 10/25/19 08:35 Freq: NEEDED Status: Active Protocol: Document 10/25/19 13:44 HH (Rec: 10/25/19 14:08 [id number]) Medical Review Prior Functional Status Medical History Reviewed Yes Diet/Fluid Consistency Regular Communication independent Mobility and Gait Pt was home bound and has very limited activity tolerance. He was only able to cachorro walk distance from bed to bathroom with/ without AD. Activities of Daily Living and IADL's He only use bed bath and has a CG assisted him for groceries , cooking, driving and transsfers. Prior Functional Level (Other details) Pt is a current smoker and smoke 1/4 pack a day. He has been smoking since he was 12 Social History Household Members spouse,caregiver Living Arrangements Mobile home Number of Floors (Floors) One Floor Number of Stairs To Enter/Railing? 1 MATHEUS to porch without rails then 4 MATHEUS to yard for his trailer. Home Environment Standard Height Toilet,Walk in Shower,Built-In Shower Seat Home Equipment Front Wheel Walker,Straight Cane Employment Status Retired Additional Social History Comment pt lives with his and a CG in [facility]. He also uses O2 at 3L/min at home d/t limited respiratory function. Pt has a hx of a left cavitary lesion, known stage 4 adenocarcinoma who has completed chemotherapy currently awaiting immunitherapy. Pt was hospitalized from 10/14-10/18 for COPD and PNA. He discharged with home tristan but HH was not initiated since he felt better after he got home . M2 PT-IP Current Condition Start: 10/25/19 08:35 Freq: NEEDED Status: Active Protocol: Document 10/25/19 13:44 (Rec: 10/25/19 14:08 [id number]) Physical Therapy Current Condition Current Condition Evaluation Date 10/25/19 Treatment Diagnosis Syncopal episode, s/p fall, very limited activity tolerance Onset Date 10/24/19 Weight Bearing Status Weight Bearing Status Full Weight Bearing M3 PT-IP Subjective Start: 10/25/19 08:35 Freq: NEEDED Status: Active Protocol: Document 10/25/19 13:44 (Rec: 10/25/19 14:08 [id number]) Subjective Physical Therapy Visit Type Type Initial Evaluation Visit Start Time 13:20 Visit Stop Time 13:36 Total Visit Minutes 16 Number of [place]LE[place] ARCHITECT Visits 0 Physical Therapy Visit Comments Patient Comments I passed out for no reason Patient Goals to return home once he is medically stable. Therapy Pain Assessment Pain When Pain Assessed During Mobility Pain Present Pain Present Pain Reported Location Right Chest Scale Used Mckenzie (Faces) Description Acute Pain Behaviors Facial Grimacing M4 PT-IP Mobility and Gait Start: 10/25/19 08:35 Freq: NEEDED Status: Active Protocol: Document 10/25/19 13:44 (Rec: 10/25/19 14:08 [id number]) PT-Bed Mobility Assessment Rolling Type of Rolling Roll to Right Level of Assist Independent Supine to Sit Supine to Sit Standby Assistance Sit to Supine Sit to Supine Standby Assistance Scooting Scooting to Edge of Bed Standby Assistance Scooting Up and Down in Bed Standby Assistance PT-Transfer Assessment Sit to and From Stand Sit to and from Stand Standby Assistance,Use of Upper Extremities Equipment Transfer Assistive Device Gait Belt,Straight Cane Orthotic/Prosthetic Devices or Brace: No Comments Mobility Comments Pt was in bed with 2L/min O2 via NC upon PT arrival. L forehead and L laceration noted. Pt agreed to mobilize with PT for OH assessment. Flattened pt's bed first and BP at 99/49 HR 76. He then completed rolling to R and pushed himself up to seated position with BP at 100/51 HR 81. Pt started productive cough after a min but he was able to stand up after. Pt did not need assistance but needed to push off from bed. Pt then stood with holding on SPC with PT SBA. BP went down to 84/52 with c/o dizziness and lightheadiness. SBA to return to bed and BP in supine = 109/55. Pt appeared SOB but SpO2 maintained at 88-96 % for the entire session with 2L /min O2 via NC. Left pt with call light placed within reach . Notified ALISE Amaro about pt's OH Gait Assessment Comments Gait Comments unable to assess due to OH Stair Climbing Assessment Comments Stair Climbing Comments unable to assess due to OH PT-Balance Assessment Sitting Balance and Reactions Static Sitting Balance Ability Normal Dynamic Sitting Balance Ability Normal Standing Balance and Reactions Static Standing Balance Ability Good Dynamic Standing Balance Ability Good Device Used SPC M5 PT-IP Objective Assessments Start: 10/25/19 08:35 Freq: NEEDED Status: Active Protocol: Document 10/25/19 13:44 HH (Rec: 10/25/19 14:08 HH [id number]) Orientation Orientation/Cognition Level of Alertness Alert Orientation Name,Age,Birthday,Month,Date, Year,Day of Week,Place, Situation Language Function Ability No Deficits Noted Safety Awareness Decreased Safety Awareness Memory Description No Deficits Noted Gross Range of Motion Upper Extremity ROM Assessment Within Functional Limits Lower Extremity ROM Assessment Within Functional Limits Strength Upper Extremity Strength Assessment Within Functional Limits Lower Extremity Strength Assessment Within Functional Limits Coordination Assessment Gross Coordination Gross Coordination WNL Sensation Assessment Sensation Gross Sensation WNL M6 PT-IP Treatment Start: 10/25/19 08:35 Freq: NEEDED Status: Active Protocol: Document 10/25/19 13:44 HH (Rec: 10/25/19 14:08 HH [id number]) Physical Therapy Treatment Education Education Provided Safety M7 PT-IP Assessment and Plan Start: 10/25/19 08:35 Freq: NEEDED Status: Active Protocol: Document 10/25/19 13:44 HH (Rec: 10/25/19 14:08 HH [id number]) PT Summary Assessment and Plan Potential Rehabilitation Potential Fair Status of Condition at Evaluation Evolving Summary Impairments Pain,Strength,Sensation,Bed Mobility,Transfers,Gait, Activity Tolerance Assessment Summary This is a high complexity evaluation for this 64yo man here s/p fall d/t syncopal episode. Pt was here from 10/14 to 10/18 for acute exacerbation COPD and PNA. Pt also has a hx of a left cavitary lesion, known adenocarinoma who has completed chemotherapy currently awaiting immunotherapy. Pt was d/c home but did not receive HH since he felt like he was back to baseline. Upon assessment, pt demonstrated Orthostatic hypotension who went from 100s /50s in supine/seated to 84/52 in standing with dizziness and lightheadiness. SpO2 ranged from 88-94%. Overall, pt is very unstable with his very compromised respiratory system, along with very poor activity tolerance at baseline . In my professional opinion, pt will need extensive skilled care/ palliative care to consider pt's quality of life vs aggressive tx d/t extent of his complicated medical conditions. 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 Days to Meet Goals 5 Frequency of Treatment Frequency Of Treatment Once a Day Treatment Plan Physical Therapy Treatment Plan Bed Mobility Training,Transfer Training,Gait Training, Therapeutic Exercise,Balance Retraining,Neuromuscular Re-ed Other Recommendations and Next Treatment monitor vital signs, transfer Focus mobility trianing pursed lip breathing Recommendations To Nursing Amount of Assist Needed 1 Person Assist Discharge Recommendations PT Discharge Recommendations Home with 24/7 Assist,Home Health,SNF Rehab Other Discharge Recommendations In my professional opinion, pt will need extensive skilled care/ palliative care to consider pt's quality of life vs aggressive tx d/t extent of his complicated medical conditions. Transportation Needs at Discharge Wheelchair/Cabulance
[2019-10-25] MEDS: SODIUM CHLORIDE 0.9% 500 ML 1000 ML IV (14:26)
--- NOTE | 2019-10-25 15:11 | PM.PN.1 ---
Subjective Subjective Date Patient Seen: 10/25/19 Interval history: Brief progress note: Patient was seen and examined. Physical exam unchanged. Patient continues to have left wrist pain but x-ray did not demonstrate any acute fractures and will continue conservative measures with icing wrist frequently no more than 20 minutes of time. Patient's orthostatic vital signs were positive and his syncopal episode was likely secondary to reflexive syncope from dehydration and orthostatic hypotension. Plan to give 1 L NS and start maintenance fluids with normal saline at 100 mL/hr. Otherwise agree with admitting providers assessment and plan. Exam Vital Signs (past 8 hours): - 10/25/19 15:49 10/25/19 19:48 10/25/19 19:56 Temperature 98.7 F Pulse Rate 88 66 Pulse Rate [Orthostatic Lying] 63 Pulse Rate [Orthostatic Sitting] 72 Pulse Rate [Orthostatic Standing] 75 Respiratory Rate 20 16 Blood Pressure 106/53 L Blood Pressure [Orthostatic Lying] 97/46 L Blood Pressure [Orthostatic Sitting] 106/60 Blood Pressure [Orthostatic Standing] 113/70 Pulse Oximetry 93 95 10/25/19 19:57 Temperature 97.3 F L Pulse Rate 76 Pulse Rate [Orthostatic Lying] Pulse Rate [Orthostatic Sitting] Pulse Rate [Orthostatic Standing] Respiratory Rate 20 Blood Pressure 96/50 L Blood Pressure [Orthostatic Lying] Blood Pressure [Orthostatic Sitting] Blood Pressure [Orthostatic Standing] Pulse Oximetry 96 Oxygen Delivery Method Nasal Cannula Oxygen Flow Rate 2 Objective Labs Result Diagrams: 10/26/19 05:25 10/26/19 05:25 Labs: Laboratory Results - last 24 hr 10/25/19 10/25/19 10/25/19 04:00 04:00 04:00 WBC 11.9 H RBC 4.04 L Hgb 10.0 L Hct 31.7 L MCV 78.4 L MCH 24.9 L MCHC 31.7 RDW 18.6 H Plt Count 444 H Neut % (Auto) 76.1 H Lymph % (Auto) 11.4 L [place] % (Auto) 8.0 Eos % (Auto) 3.2 Baso % (Auto) 1.3 Neut # (Auto) 9000 H Lymph # (Auto) 1400 [place] # (Auto) 1000 H Eos # (Auto) 400 Baso # (Auto) 200 H Sodium 135 L Potassium 4.4 Chloride 106 Carbon Dioxide 29 BUN 19 Creatinine 0.96 Estimated GFR > 60.0 BUN/Creatinine Ratio 19.8 Glucose 85 Calcium 8.1 L Magnesium 1.9 Total Creatine Kinase < 20 L CK-MB (CK-2) TNP CK-MB (CK-2) Rel Index TNP Troponin I < 0.012
[2019-10-25] MEDS: ACETAMINOPHEN 325 MG TABLET 650 MG PO ×2 (15:29→22:15)
[2019-10-25] MEDS: TRAMADOL 50 MG TABLET PO (17:00)
--- NOTE | 2019-10-25 17:56 | PC.NURSE ---
Addendum entered by Danni Tamayo R.N. 10/25/19 21:29: Mostly sleeping in bed on right side. Rouses to movement in room. Tele in place. 02 2L nc sats 97% per continuous monitor. Urinal use. Taking oral fluids well. BL calf scd's replaced. Original Note: Pt awake and alert in bed. Able to move own extremities independently. 02 2L nc with continuous pulse oximeter in place. Oxygen level 91-93%. Pt receives R.T. treatment @ beginning of shift for increasing cough. Dr. Wood in to see patient. Pt admits to dizziness when up. Admits to some blurry vision. Pt c/o pain right anterior chest where it always is. Administered meds as per emar. Pt prefers break from scd's as states these were on all day. Witnessed occasional tremors of pt's extremities and trunk and pt reports this is baseline and these come and go. Noted tremors do stop as quickly as they began. Pt c/o left wrist pain to Dr. Wood and ice was placed with pillow to elevated. Scattered bruises and abrasions to BL UE's.
[2019-10-26 00:27] VITALS: BP 97/58; PULSE 60; RESP 18; TEMP 36.8; O2SAT 94
--- NOTE | 2019-10-26 01:28 | PC.NURSE ---
Addendum entered by Becky Garcia R.N. 10/26/19 06:18: States pain in chest is 7/10 this morning; medicated with Oxycodone. Addendum entered by Becky Garcia R.N. 10/26/19 02:07: Complains of 6/10 right sided chest pain where it always is; medicated with Oxycodone. Original Note: Seen and assessed at 0050. Patient is alert and oriented. Breath sounds coarse with expiratory rhonchi. On oxygen at 2L/min per NC (uses at home) with sat of 94%; on continuous oximetry. Does have a cough which he states is productive of yellow/green sputum. HRR with telemetry reading of SR-SB and rate of 60. BP low at 98/58 and does state he feels dizzy. Denies nausea. BT present and abdomen is soft. Voiding per urinal; denies dysuria, frequency or urgency. Abrasions/skin tears/bruising on bilateral UE. Has lesion on chest/abdomen and bruises on bilateral LE. States he has chronic numbness in right arm down right flank and also involving right leg. Is able to turn self in bed. Gait not assessed at this time although states he has generalized weakness. Wearing bilateral calf SCD's. States he is having chronic pain with severity of 7/10 but too soon to give pain meds and patient declines to have MD contacted stating he can tolerate the pain. Fall risk score is high and bed alarm is activated.
[2019-10-26] MEDS: ALBUTEROL/IPRATROPIUM 3 ML AMPUL INH ×3 (01:58→14:06)
[2019-10-26] MEDS: OXYCODONE IR 10 MG TABLET 20 MG PO ×2 (02:06→06:14)
[2019-10-26 02:07] VITALS: PULSE 78; RESP 16; O2SAT 98
[2019-10-26 05:40] LABS: Add Manual Diff / Slide Review NO; Basophils Absolute Auto 100 /uL (0-100); Basophils Percent Auto 1.3 % (0-2); Eosinophils Absolute Auto 500 /uL (0-450); Hematocrit 29.6 % (41-53); Hemoglobin 9.4 g/dL (13.5-17.5); Lymphocytes Absolute Auto 1100 /uL (1100-4500); Lymphocytes Percent Auto 9.5 % (25-40); Mean Corpuscular HGB Conc 31.8 % (30-36); Mean Corpuscular Hemoglobin 24.9 PG (26-34); Monocytes Absolute Auto 900 /uL (0-900); Monocytes Percent Auto 7.7 % (3-14); Neutrophils Absolute Auto 8800 /uL (1500-7000); Neutrophils Percent Auto 77.5 % (50-75); Platelet Count 418 X10^3/uL (150-400); Red Blood Cell Count 3.79 X10^6/uL (4.5-5.9); Red Cell Distribution Width 18.4 % (11.6-14.8); White Blood Cell Count 11.3 X10^3/uL (4.5-11.0)
[2019-10-26 05:49] VITALS: BP 118/74; BP 92/46; BP 96/61; PULSE 59; PULSE 66; PULSE 79; RESP 18; TEMP 36.8; O2SAT 96
[2019-10-26 05:54] LABS: Alanine Aminotransferase 35 IU/L (<50); Albumin 2.7 g/dL (3.5-5.0); Albumin Globulin Ratio 0.9 (1.0-2.8); Alkaline Phosphatase 79 U/L (38-126); Aspartate Aminotransferase 46 IU/L (17-59); Bilirubin Total 0.6 mg/dL (0.2-1.3); Blood Urea Nitrogen 17 mg/dL (9-20); Calcium 8.4 mg/dL (8.4-10.2); Carbon Dioxide 27 mmol/L (22-32); Chloride 105 mmol/L (98-107); Estimated Glomerular Filt Rate > 60.0 mL/min (>60); Glucose 96 mg/dL (80-110); HEMOLYSIS < 15 (0-50); Magnesium 1.9 mg/dL (1.6-2.3); Potassium 4.6 mmol/L (3.4-5.1); Sodium 134 mmol/L (137-145); Total Protein 5.7 g/dL (6.3-8.2)
[2019-10-26] MEDS: LEVOTHYROXINE 150 MCG TABLET PO (06:14)
[2019-10-26] MEDS: SODIUM CHLORIDE 0.9% 1,000 ML 100 ML IV (06:17)
[2019-10-26 07:30] VITALS: PULSE 60; RESP 18; O2SAT 99
[2019-10-26] MEDS: MAGNESIUM OXIDE 400 MG TABLET PO (08:49)
[2019-10-26] MEDS: PREGABALIN 50 MG CAPSULE PO (08:49)
[2019-10-26] MEDS: SERTRALINE 50 MG TABLET 75 MG PO (08:49)
[2019-10-26] MEDS: ENOXAPARIN 40 MG/0.4 ML SYRINGE SUBCUT (08:49)
[2019-10-26] MEDS: TRAMADOL 50 MG TABLET PO (08:52)
--- NOTE | 2019-10-26 09:41 | PT.IPTN ---
Physical Therapy Treatment Note M2 PT-IP Current Condition Start: 10/25/19 08:35 Freq: NEEDED Status: Active Protocol: Document 10/25/19 13:44 HH (Rec: 10/25/19 14:08 [id number]) Physical Therapy Current Condition Current Condition Evaluation Date 10/25/19 Treatment Diagnosis Syncopal episode, s/p fall, very limited activity tolerance Onset Date 10/24/19 Weight Bearing Status Weight Bearing Status Full Weight Bearing M3 PT-IP Subjective Start: 10/25/19 08:35 Freq: NEEDED Status: Active Protocol: Document 10/26/19 09:34 (Rec: 10/26/19 09:41 [email or web address]) Subjective Physical Therapy Visit Type Type Treatment Note Visit Start Time 09:15 Visit Stop Time 09:29 Total Visit Minutes 14 Number of MARKET 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 INTERVIEWER Visits 0 Physical Therapy Visit Comments Patient Comments Im feeling alright Therapy Pain Assessment Pain Present Pain Present Denied Pain M4 PT-IP Mobility and Gait Start: 10/25/19 08:35 Freq: NEEDED Status: Active Protocol: Document 10/26/19 09:34 (Rec: 10/26/19 09:41 [id number]) PT-Bed Mobility Assessment Supine to Sit Supine to Sit Standby Assistance Sit to Supine Sit to Supine Standby Assistance Scooting Scooting to Edge of Bed Standby Assistance Scooting Up and Down in Bed Standby Assistance PT-Transfer Assessment Sit to and From Stand Sit to and from Stand Standby Assistance,Use of Upper Extremities Equipment Transfer Assistive Device Gait Belt,Front Wheeled Walker Orthotic/Prosthetic Devices or Brace: No Transfers Transfer Destination Bed,Chair Transfer Technique Stand Step Pivot Transfer Ability Level of Assist Contact Guard Assistance,Use of Upper Extremities Comments Mobility Comments Pt in bed upon PT arrival. BP at 86/47 with 2L O2 via NC but his BP went back to 97/47 after a minute. Proceed to bed to chair transfer. Pt completed supine to sit at R EOB with SBA. He was able to stand up and with FWW and completed stand step pivot and to R side safely. He sat in chair comfortably without SOB/ discomfort. BP at 98/47 SpO2 94% with 2 L. Pt was shaky afterwards but he stated that is normal to him. Call light placed within reach. Notified ALISE Harris with pt's progress. Gait Assessment Comments Gait Comments did not assess d/t weakness Stair Climbing Assessment Comments Stair Climbing Comments did not assess d/t weakness M5 PT-IP Objective Assessments Start: 10/25/19 08:35 Freq: NEEDED Status: Active Protocol: Document 10/25/19 13:44 (Rec: 10/25/19 14:08 [id number]) Orientation Orientation/Cognition Level of Alertness Alert Orientation Name,Age,Birthday,Month,Date, Year,Day of Week,Place, Situation Language Function Ability No Deficits Noted Safety Awareness Decreased Safety Awareness Memory Description No Deficits Noted Gross Range of Motion Upper Extremity ROM Assessment Within Functional Limits Lower Extremity ROM Assessment Within Functional Limits Strength Upper Extremity Strength Assessment Within Functional Limits Lower Extremity Strength Assessment Within Functional Limits Coordination Assessment Gross Coordination Gross Coordination WNL Sensation Assessment Sensation Gross Sensation WNL M6 PT-IP Treatment Start: 10/25/19 08:35 Freq: NEEDED Status: Active Protocol: Document 10/25/19 13:44 (Rec: 10/25/19 14:08 [id number]) Physical Therapy Treatment Education Education Provided Safety M7 PT-IP Assessment and Plan Start: 10/25/19 08:35 Freq: NEEDED Status: Active Protocol: Document 10/26/19 09:34 (Rec: 10/26/19 09:41 [email or web address]) PT Summary Assessment and Plan Summary Impairments Pain,Strength,Sensation,Bed Mobility,Transfers,Gait, Activity Tolerance Assessment Summary Pt shows improved BP control this morning with 2L O2 via NC . i believe pt is somewhat close to baseline since he was mostly bed bound at home. Will cont monitor pt's progress and mobility as cachorro. Goals Bed Mobility Goal Standby Assistance Transfer Goal Standby Assistance,Cane,Front Wheeled Walker Gait Goal Standby Assistance,Cane,Front Wheel Walker Gait Distance 10 Other Goals up to bathroom 5 steps to house with FWW/[employer] DIRECTOR Days to Meet Goals 5 Frequency of Treatment Frequency Of Treatment Once a Day Treatment Plan Physical Therapy Treatment Plan Bed Mobility Training,Transfer Training,Gait Training, Therapeutic Exercise,Balance Retraining,Neuromuscular Re-ed Other Recommendations and Next Treatment monitor vital signs, transfer Focus mobility trianing pursed lip breathing Recommendations To Nursing Amount of Assist Needed 1 Person Assist Discharge Recommendations PT Discharge Recommendations Home with 24/7 Assist,Home Health,SNF Rehab Other Discharge Recommendations In my professional opinion, pt will need extensive skilled care/ palliative care to consider pt's quality of life vs aggressive tx d/t extent of his complicated medical conditions. Transportation Needs at Discharge Wheelchair/Cabulance
--- NOTE | 2019-10-26 10:35 | CM.DPC ---
DCP continued: EMR Reviewed: CM/RN met with patient to discuss D/C plan. During AM rounds patient and MD discussed that he will most likely be d/C home today. CM/Rn talked with patient and he was happy with D/C plan. CM/RN asked if patient wanted HH services and patient stated that he did want [facility] started for PT and OT services. CM/RN spoke with Dr. Wood and CM/RN will get F2F signed and sent to [facility]. Mel Reynoso RN
--- NOTE | 2019-10-26 12:49 | PM.DS.1 ---
History of Present Illness History of Present Illness Date Patient Seen: 10/24/19 Chief complaint: Fell, Head and Arm Laceration Narrative: Written by Yash VAZQUEZ: Mr. Yash Davila is a 64-year-old male with history significant for COPD with right upper lobe cavitation, history of lung cancer status post chemotherapy, DVT right upper extremity no longer on anticoagulation, chronic right chest and back pain, peripheral neuropathy, GERD, hypothyroidism and depression who presents to the ER following a ground level fall secondary to a syncopal episode. The patient reports he was walking and the next thing he knew he was on the ground. He felt no presyncope or antecedent symptoms. He denies headaches or dizziness and has had no visual changes, ataxia, chest pain, nausea or diaphoresis. The patient had been admitted to [facility] for COPD exacerbation with community-acquired pneumonia from 10/15/2019 to 10/19/2019. The patient states that he feels he has recovered well. She reports no fevers or chills, headaches or dizziness, nasal congestion or sore throat. He has significant right-sided chest pain from his cancer and metastases to ribs that is tender to touch. He denies complaints of palpitations. Has chronic shortness of breath and is on home O2. He has a chronic productive cough. Denies complaints of abdominal pain or heartburn, nausea vomiting, diarrhea or constipation. Reports no difficulty urinating. Upon arrival to the ER patient is temperature 99.5?, heart rate 96, blood pressure 117/78, respirations 22 saturating 99% on 2 L nasal cannula. A CT of the head is obtained which finds no acute acute intracranial processes. X-ray of the left wrist obtained finding no fracture or dislocation. On laboratory analysis he has white count of 16.5, hemoglobin 11.9, hematocrit of 37.6, platelets of 566. His electrolytes are within normal range with a BUN of 20 and creatinine 1.11. His nonfasting glucose is 164. His total CK is less than 20 is troponin is less than 0.012. In the ER the patient receives normal saline and his forehead lack is sutured. Patient is admitted to the medicine service for syncope. Discharge Providers Provider Date of admission: 10/24/19 20:17 Discharge Date: 10/26/19 Consults: 10/24/19 22:05 Consult to Dietitian, Adult Routine Comment: Reason For Exam: decreased body req. 07/21/20 23:49 Consult to Discharge Planning Routine Comment: Consult to Physical Therapy Evaluate & Treat Comment: Syncope, weakness Physician Instructions: Evaluate and Treat 10/25/19 00:17 Consult to Respiratory Therapy Evaluate & Treat Comment: COPD, lung cancer Physician Instructions: Evaluate and treat Discharge provider: Brandi Wood DO Summary Hospital Course Discharge Diagnosis: 1. Ground level fall and syncopal episode, secondary to orthostasis, present on admission. Orthostasis resolved. 2. Chronic hypoxic respiratory failure, present on admission. Stable. 3. Recent bacterial pneumonia. Resolved. 4. Right upper lobe cavitary lesion, chronic, present on admission. Stable. 5. Chronic right axillary DVT, present on admission. Stable. 6. Metastatic adenocarcinoma of lung, chronic, present on admission. Stable. 7. Hypothyroidism, chronic, present on admission. Stable. 8. Severe protein malnutrition, chronic, present on admission. Stable. Hospital Course: Yash Davila is a 64-year-old male with history significant for COPD with right upper lobe cavitation, history of lung cancer status post chemotherapy, DVT right upper extremity no longer on anticoagulation, chronic right chest and back pain, peripheral neuropathy, GERD, hypothyroidism and depression who presents to the ER following a ground level fall secondary to a syncopal episode. 1. Ground level fall and syncopal episode, secondary to orthostasis, present on admission. Orthostasis resolved. -Secondary to othostatic hypotension likely due to dehydration and several high dose pain medications that lower blood pressure. -Patient reports a fall from standing with no antecedent symptoms. He reports no such prior events. -Echocardiogram did not identify source for syncope and demonstrated LV wall thickness is mildly increased with normal systolic function EF 65-70% without focal wall motion abnormalities, diastolic parameters suggest probable normal left ventricular diastolic function and normal filling pressures, RV grossly normal in size and function, left atrial size is normal, right atrium not well visualized secondary to technical limitations but appears grossly normal in size, prolapse of the posterior mitral valve leaflet(s), however it is difficult to visualize, mild mitral regurgitation, no other significant valvular heart disease and aortic root is normal size. -Orthostatic vitals positive and received 4 L IV fluid with resolution of orthostasis. -Continued to monitor closely on telemetry. Patient remained in sinus rhythm without any significant ectopy thrpughout hospitalization. 2. Chronic hypoxic respiratory failure, present on admission. Stable. -Patient is satting 99% on 2 L of nasal cannula oxygen and breathing is at baseline. Patient continues to have productive cough which is unchanged. 3. Recent bacterial pneumonia. Resolved. -Patient completed course of antibiotics with levaquin. He denies fevers or chills and describes breathing is at baseline -WBC elevated but normalzing and went from 16.5 to 11.3 possibly due treated to pneumonia versus reactive to recent fall/trauma. 4. Right upper lobe cavitary lesion, chronic, present on admission. Stable. -He has previously had negative cultures on bronchoscopy at [facility]. Patient has had productive cough with yellow sputum for 1 month since having been taken off suppressive antibiotics. Repeat sputum culture showed mixed resident aniket. Patient completed course of Levaquin prior to admission. 5. Chronic right axillary DVT, present on admission. Stable. -Patient has continuing right upper arm pain due to DVT. Xarelto was recently discontinued due to hemoptysis. Patient is intolerant of aspirin. Patient was previously on therapeutic Lovenox during previous admission but it was not continued for unclear reasons and will defer to oncology. 6. Metastatic adenocarcinoma of lung, chronic, present on admission. Stable. -Patient is followed by Dr. Young of oncology. Per Dr. Young the plan was to begin immunotherapy with Nivolumab on 09/21/2019 but this treatment has not been started due to pending insurance approval. -Continued home oxycodone 20 mg every 4 hours as needed, fentanyl patch every 72 hours, pregabalin 50 mg three times daily, and tramadol 50 mg twice daily as needed for chronic pain of right chest pain due to rib metastases. -Patient has been referred to palliative care. 7. Hypothyroidism, chronic, present on admission. Stable. -TSH 13.40 and free T4 1.19 likelty indicative of under replacement. -Continued levothyroxine increased from 150 to 175 mcg daily. 8. Severe protein malnutrition, chronic, present on admission. Stable. -BMI 18.3. -Consulted dietitian and we appreciate her time and recommendations. Exam Vital Signs (past 8 hours): - 10/26/19 05:49 10/26/19 07:30 Temperature 98.2 F Pulse Rate 59 L 60 Pulse Rate [Orthostatic Lying] 59 L Pulse Rate [Orthostatic Sitting] 79 Pulse Rate [Orthostatic Standing] 66 Respiratory Rate 18 18 Blood Pressure 92/46 L Blood Pressure [Orthostatic Lying] 92/46 L Blood Pressure [Orthostatic Sitting] 96/61 Blood Pressure [Orthostatic Standing] 118/74 Pulse Oximetry 96 99 Oxygen Delivery Method Nasal Cannula Oxygen Flow Rate 2 Narrative Exam Narrative: General: Elderly frail cachetic appearing male lying in bed and in no acute distress, appropriately interactive. HEENT: Normocephalic, atraumatic. External ears without defect. Pupils equal, round, and reactive to light and accommodation. Anicteric sclerae, moist conjunctivae, and no lid lag. Oropharynx free of erythema and cobble stoning with moist mucosa. Neck: Supple with full range of motion. No jugular venous distension. No bruits. No lymphadenopathy or thyromegaly. Cardiovascular: Regular rate and rhythm without murmurs, rubs, or gallops appreciated Pulmonary:Diminished throughout with scattered rhonchi. No crackles or wheezes. Normal respiratory effort with no use of accessory muscles. Abdomen: Soft, scaphoid, bowel sounds present, nontender, nondistended. No hepatosplenomegaly or masses appreciated. Extremities: No clubbing, cyanosis, or edema. Skin: Normal temperature, turgor, and texture; no rash, ulcers, or subcutaneous nodules appreciated. Neurological: Cranial nerves grossly intact. Psychiatric: Depressed mood and flat affect. Alert and oriented to person, place, and time. Objective Labs Result Diagrams: 10/26/19 05:25 10/26/19 05:25 Labs: Laboratory Results - last 24 hr 10/26/19 10/26/19 10/26/19 05:25 05:25 05:25 WBC 11.3 H RBC 3.79 L Hgb 9.4 L Hct 29.6 L MCV 78.0 L MCH 24.9 L MCHC 31.8 RDW 18.4 H Plt Count 418 H Neut % (Auto) 77.5 H Lymph % (Auto) 9.5 L Bay % (Auto) 7.7 Eos % (Auto) 4.0 Baso % (Auto) 1.3 Neut # (Auto) 8800 H Lymph # (Auto) 1100 Bay # (Auto) 900 Eos # (Auto) 500 H Baso # (Auto) 100 Sodium 134 L Potassium 4.6 Chloride 105 Carbon Dioxide 27 BUN 17 Creatinine 0.81 Estimated GFR > 60.0 BUN/Creatinine Ratio 21.0 Glucose 96 Calcium 8.4 Magnesium 1.9 Total Bilirubin 0.6 AST 46 ALT 35 Alkaline Phosphatase 79 Total Protein 5.7 L Albumin 2.7 L Globulin 3.0 Albumin/Globulin Ratio 0.9 L TSH 13.40 H Discharge Plan Discharge Plan Patient Disposition: Home Health Service Discharge comment: You are being discharged home with home health for physical therapy, occupational therapy, nursing, 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 You likely passed out due to low blood pressure called orthostatic hypotension. Your blood pressure was low due to dehydration in combination with your pain medications. Please try to stay well hydrated. Please follow-up with your oncologist, Dr. Young, regarding your hospitalization and continued pain management at your scheduled appointment. Discharge orders & Medications Prescriptions: Continued fluticasone propion-salmeterol [Advair Diskus] 250-50 mcg/dose Blister With Device 1 puff INH BID 30 Days Qty: 1 RF: 0 sertraline [Zoloft] 50 mg Tablet 75 mg PO DAILY RF: 0 pregabalin [Lyrica] 50 mg Capsule 50 mg PO TID Qty: 90 RF: 1 fentanyl 25 mcg/hr Patch 72 Hour 1 patch TRANSDERMAL Q72H Qty: 4 RF: 0 tramadol 50 mg Tablet 50 mg PO BID PRN (Reason: pain) Qty: 60 RF: 0 albuterol sulfate [ProAir HFA] 90 MCG/PUFF HFA aerosol inhaler 1 puff INH Q6H RF: 0 ipratropium-albuterol 0.5 mg-3 mg(2.5 mg base)/3 mL Solution For Nebulization 3 ml INH Q4HR PRN (Reason: sob/wheezing) Qty: 40 RF: 0 Changed levothyroxine 150 mcg Tablet 175 mcg PO DAILY Qty: 90 RF: 0 No Action oxycodone 20 mg Tablet 20 mg PO Q4H PRN (Reason: pain, cancer-related) Qty: 180 RF: 0 Flovent Diskus 100 mcg/actuation Blister With Device 1 inh INHALATION Q12H RF: 0 amoxicillin-pot clavulanate 875-125 mg Tablet 1 tab PO BID RF: 0 Follow up/Referrals: Thomas Young MD [Physician] - 11/02/19 8:20 am Diet/Activity/Treatments Diet: Diet as Tolerated Diet comment: high protein diet, with Enlive twice daily Activity: Activity as tolerated with forward wheeled walker at all times and physical and occupational therapy Visit Report/Discharge Packet Instructions: High-Calorie, High-Protein Diet, DI for Orthostatic Hypotension, How to Prevent Falls Visit Report Forms: Patient Portal/API, Stroke Signs & Symptoms Discharge Data Attending Provider: Yash Barbosa Admit Date/Time: 10/24/19 20:17 Discharges patient from system. Discharge Date/Time: 10/26/19 15:06
[2019-10-26 13:39] LABS: Free T4, Direct Thyroxine 1.19 ng/dL (0.78-2.19)
[2019-10-26 14:06] VITALS: PULSE 72; RESP 20; O2SAT 98
--- NOTE | 2019-10-26 14:46 | PC.NURSE ---
Discharge instructions and home care handouts reviewed with patient and his friend at bedside. They state understanding and have no further questions or concerns. IV dc'd intact. Patient states he has follow up appointment scheduled. Escorted out via wheelchair by SHASTA with his home oxygen.
== END 2019-10-26 15:06 | disposition home health service (06) ==
LOC: ED 20:15 → AC 20:18
PROVIDERS: Internal Medicine; Admitting Provider Nurse Practitioner Adult Health; Emergency Provider Nurse Practitioner; Referring Provider Nurse Practitioner; Visit Provider Nurse Practitioner Adult Health
DX: R55 Syncope and collapse (principal); S01.81XA Laceration without foreign body of other part of head, initial encounter; S61.511A Laceration without foreign body of right wrist, initial encounter; W18.30XA Fall on same level, unspecified, initial encounter; E43 Unspecified severe protein-calorie malnutrition; Z68.1 Body mass index [BMI] 19.9 or less, adult; J96.11 Chronic respiratory failure with hypoxia; C34.90 Malignant neoplasm of unspecified part of unspecified bronchus or lung; C79.51 Secondary malignant neoplasm of bone; J44.9 Chronic obstructive pulmonary disease, unspecified; Z99.81 Dependence on supplemental oxygen; F17.210 Nicotine dependence, cigarettes, uncomplicated; I82.721 Chronic embolism and thrombosis of deep veins of right upper extremity; J98.4 Other disorders of lung; G62.9 Polyneuropathy, unspecified; K21.9 Gastro-esophageal reflux disease without esophagitis; E03.9 Hypothyroidism, unspecified; F32.9 Major depressive disorder, single episode, unspecified; Z11.59 Encounter for screening for other viral diseases
CPT/HCPCS: 36415; 36592; 70450; 71045; 72125; 73110; 80048; 80053; 82550; 83735; 84439; 84443; 84484; 85025; 87635; 93005; 93306; 94640; 94762; 96360; 96361; 96372; 97163; 97530; 99284; 99285; G0378; A9270; J1650

== ENCOUNTER 2019-11-02 19:07 | Inpatient (IN) | payer OTHER, MEDICAID, SELFPAY ==
[2019-10-24 21:50] VITALS: BMI 18.3
[2019-11-02 19:10] VITALS: BP 116/77; PULSE 102; RESP 28; TEMP 36.9; O2SAT 87; BMI 16.8
[2019-11-02 20:00] VITALS: BP 108/58; PULSE 101; RESP 28; O2SAT 94
[2019-11-02 20:30] VITALS: BP 91/59; PULSE 93; RESP 24; O2SAT 93
--- NOTE | 2019-11-02 21:13 | ED_ITS ---
HPI - General Adult General Chief complaint: Shortness of Breath/Dyspnea Stated complaint: SOB Time Seen by Provider: 11/02/19 21:09 Source: patient and EMS Mode of arrival: EMS Limitations: physical limitation History of Present Illness HPI narrative: 64yo male smoker with a history of oxygen-dependent stage IV lung cancer (currently awaiting immunotherapy) with stable cavitary lesion, COPD, GERD, pancreatitis, metastatic lung cancer, and right arm DVT, with admission mid October for COPD and community-acquired pneumonia exacerbation that was treated with Levaquin, course completed on October 25. Was seen by oncology today and novolumab 240mg IV was resumed today. After his oncology appointment this afternoon he had an episode of severe dyspnea while on his usual 3 L oxygen at home. Began a home nebulizer with little improvement, 911 was called. EN route he was given IV Solu-Medrol and an additional nebulizer. On arrival in the emergency department he is maintaining saturations with 3 L nasal cannula in the upper 80s to low 90s. He is able speak in full sentences but somewhat confused, his reports that his behavior is at his baseline for evenings and when he is fatigued. He notes no specific fevers, has chronic dyspnea, rib pain from metastatic lesions, weight loss, Admit for pneumonia 10/14- (levaquin) , ground level fall 10/23-10/25 Related Data Home Medications Medication Instructions Recorded Confirmed albuterol sulfate [ProAir HFA] 1 puff INH Q6H 03/18/18 11/02/19 sertraline [Zoloft] 75 mg PO DAILY 06/23/18 11/02/19 amoxicillin-pot clavulanate 1 tab PO BID 11/02/19 11/02/19 fluticasone propionate [Flovent 1 inh INHALATION Q12H 11/02/19 11/02/19 Diskus] Previous Rx's Medication Instructions Recorded ipratropium-albuterol 3 ml INH Q4HR PRN #40 ml 03/20/18 pregabalin [Lyrica] 50 mg PO TID #90 cap 04/11/19 fentanyl 1 patch TRANSDERMAL Q72H #4 ea 10/19/19 fluticasone propion-salmeterol 1 puff INH BID 30 Days #1 each 10/19/19 [Advair Diskus] tramadol 50 mg PO BID PRN #60 tab 10/19/19 levothyroxine 175 mcg PO DAILY #90 tab 10/26/19 oxycodone 20 mg PO Q4H PRN #180 tab 10/30/19 Allergies Allergy/AdvReac Type Severity Reaction Status Date / Time aspirin [ASPIRIN] AdvReac Mild NAUSEA Verified 11/02/19 19:30 Review of Systems Constitutional Constitutional: Reports anorexia, Reports fatigue, Reports frequent falls and Reports lethargy ENT Ears, Nose, Mouth, and Throat: Denies dysphagia Cardiovascular Cardiovascular: Reports chest pain at rest (due to metastasis to ribs) and Reports dyspnea Respiratory Respiratory: Reports cough, Reports dyspnea and Reports wheezing Gastrointestinal Gastrointestinal: Denies dysphagia Comments: loss of appetite Genitourinary Genitourinary: Denies hematuria Genitourinary: Denies hematuria Musculoskeletal Musculoskeletal: Reports back pain (metastasis to T3) Neurologic Neurologic: Reports frequent falls Endocrine Endocrine: Reports fatigue Allergic/Immunologic Allergic/Immunologic: Reports wheezing Patient History Medical History COPD (chronic obstructive pulmonary disease) (Chronic) Depression (Acute) DVT of upper extremity (deep vein thrombosis) (Acute) GERD (gastroesophageal reflux disease) (Acute) Hypothyroid (Chronic) Lung cancer, primary, with metastasis from lung to other site (Chronic) PEG (percutaneous endoscopic gastrostomy) adjustment/replacement/removal (Acute) Peripheral neuropathy (Acute) Tobacco dependence (Acute) Surgical History History of lung biopsy (Acute) Family History Mother Congestive heart failure Father Unknown family medical history Social History household members: spouse and caregiver Smoking Status: Current every day smoker alcohol intake: former Smoking Status: Current every day smoker tobacco type: cigarettes alcohol intake frequency: holidays/special occasions only Substance Use Type: does not use Exam Narrative Exam Narrative: General: Cachectic, fatigued, able to speak in full sentences HEENT: Moist mucous membranes, normal sclera with reactive pupils, healing laceration mid forehead Neck: No JVD, supple Respiratory: Absent lung sounds right upper lobe rhonchi right axilla right base scattered wheeze in lower lung monte with no accessory muscle use at this time Cardiac: Regular rate and rhythm no murmurs no bruits Abdomen: Soft nontender good bowel tones, no flank pain Skin: Pale, thin with multiple bruises over all of his body in various stages of healing. Port site left upper chest is clean and dry Neurologic: Grossly neurologically intact with no obvious asymmetries or abnormalities Extremities: No trauma, well perfused Psych: Cooperative, waxing and waning attention span Initial Vital Signs Initial Vital Signs: Vital Signs Temperature 98.4 F 11/02/19 19:10 Pulse Rate 102 H 11/02/19 19:10 Respiratory Rate 28 H 11/02/19 19:10 Blood Pressure 116/77 11/02/19 19:10 Pulse Oximetry 87 L 11/02/19 19:10 Course Orders Ordered: ED Orders 11/02/19 21:44 CT angio chest PE protocol Stat 11/02/19 23:55 Blood Culture Stat Complete Blood Count AUTO DIFF Stat Comprehensive Metabolic Panel Stat Lactate (Lactic Acid) Stat Lipase Stat Magnesium Stat NT-proBNP (BNP-Adult 18+) Stat Troponin I Stat Discontinued Medications Sodium Chloride (Normal Saline 0.9%) 1,000 mls @ 1,000 mls/hr IV BOLUS ONE Stop: 11/03/19 00:43 Last Admin: 11/03/19 00:38 Dose: 1,000 mls/hr Documented by: Piperacillin/Tazobactam/Dextrose (Zosyn) 3.375 gm in 50 mls @ 100 mls/hr IV NOW ONE Stop: 11/03/19 00:14 Last Admin: 11/03/19 00:38 Dose: 100 mls/hr Documented by: Oxycodone HCl (Percolone) 20 mg PO NOW ONE Stop: 11/02/19 21:45 Last Admin: 11/02/19 22:32 Dose: 20 mg Documented by: [email or web address] Vital Signs Vital signs: Vital Signs - 8 hr 11/02/19 19:10 11/02/19 20:00 11/02/19 20:30 Temperature 98.4 F Pulse Rate 102 H 101 H 93 H Respiratory Rate 28 H 28 H 24 Blood Pressure 116/77 108/58 L 91/59 L Pulse Oximetry 87 L 94 93 11/02/19 21:45 11/02/19 22:40 Temperature 99.1 F Pulse Rate 86 83 Respiratory Rate 24 20 Blood Pressure 99/63 99/61 Pulse Oximetry 94 99 Medical Decision Making Medical Records Medical records reviewed: Yes I reviewed the patient's medical records. Lab Data Lab results reviewed: Yes I reviewed the patient's lab results. Result diagrams: 11/02/19 23:55 11/02/19 23:55 Labs: Lab Results 11/02/19 11/02/19 11/02/19 Range/Units 23:55 23:55 23:55 WBC 13.4 H (4.5-11.0) X10^3/uL RBC 4.09 L (4.5-5.9) X10^6/uL Hgb 9.9 L (13.5-17.5) g/dL Hct 31.3 L (41-53) % MCV 76.6 L (80-100) fL MCH 24.3 L (26-34) PG MCHC 31.7 (30-36) % RDW 17.8 H (11.6-14.8) % Plt Count 480 H (150-400) X10^3/uL Neut % (Auto) Not Reportable Lymph % (Auto) Not Reportable [place] % (Auto) Not Reportable Eos % (Auto) Not Reportable Baso % (Auto) Not Reportable Lymph # (Auto) Not Reportable [place] # (Auto) Not Reportable Baso # (Auto) Not Reportable Sodium 133 L (137-145) mmol/L Potassium 4.6 (3.4-5.1) mmol/L Chloride 99 (98-107) mmol/L Carbon Dioxide 30 (22-32) mmol/L BUN 21 H (9-20) mg/dL Creatinine 0.88 (0.66-1.25) mg/dL Estimated GFR > 60.0 (>60) mL/min BUN/Creatinine Ratio 23.9 H (6-22) Glucose 155 H (80-110) mg/dL Lactate 0.9 (0.7-2.1) mmol/L Calcium 9.0 (8.4-10.2) mg/dL Magnesium 1.7 (1.6-2.3) mg/dL Total Bilirubin 0.6 (0.2-1.3) mg/dL AST 35 (17-59) IU/L ALT 28 (<50) IU/L Alkaline Phosphatase 105 (38-126) U/L Troponin I < 0.012 (0.01-0.034) ng/mL NT-Pro-B Natriuret Pep 1520 H (<125) pg/mL Total Protein 7.1 (6.3-8.2) g/dL Albumin 3.3 L (3.5-5.0) g/dL Globulin 3.8 (1.7-4.1) g/dL Albumin/Globulin Ratio 0.9 L (1.0-2.8) Lipase 29 (23-300) U/L MDM Narrative Medical decision making narrative: 64-year-old gentleman with metastatic lung cancer presenting with worsening shortness of breath, increasing white count over the day and CT scan that suggests bilateral lower lobe pneumonia as well as the known cavitary lesion in the lungs. Complicated by his COPD and likely a component of congestive heart failure as well. No signs of sepsis, comfortable on 3 L of nasal cannula oxygen. Completed a course of Levaquin for after admission on October 18 for a community-acquired pneumonia. Began immunotherapy treatment for his lung cancer today with 1st infusion earlier today. In the emergency room he was given Zosyn, receive Solu-Medrol EN route via medics with COPD exacerbation. Will hold on dramatic fluid resuscitation with concerns of congestive heart failure. Patient will be admitted for IV antibiotics for a presumed hospital-acquired pn eumonia, COPD exacerbation in the setting of metastatic lung cancer. Care is reviewed with Dr. Farmer, night hospitalist. Of note, CT scan done today does suggest a partially imaged kidney with concern for left renal mass. Discharge Plan Departure Patient Disposition: Admitted As Inpatient Clinical Impression: Lung cancer Qualifiers: Laterality: unspecified laterality Lung location: unspecified part of lung Qualified Code(s): C34.90 - Malignant neoplasm of unspecified part of unspecified bronchus or lung Pneumonia Qualifiers: Pneumonia type: due to unspecified organism Laterality: bilateral Lung location: lower lobe of lung Qualified Code(s): J18.9 - Pneumonia, unspecified organism COPD (chronic obstructive pulmonary disease) Qualifiers: COPD type: COPD with acute exacerbation Qualified Code(s): J44.1 - Chronic obstructive pulmonary disease with (acute) exacerbation
--- NOTE | 2019-11-02 21:44 | DI.CT.S_ITS ---
PROCEDURE: CT ANGIO CHEST PE PROTOCOL INDICATIONS: acute dyspnea, high risk for PE TECHNIQUE: After the administration of intravenous contrast, 2 mm thick sections acquired from the pulmonary apices to the posterior costophrenic angles. 3-dimensional maximum intensity projection (MIP) coronal and sagittal reformats were then acquired through the thorax. For radiation dose reduction, the following was used: automated exposure control, adjustment of mA and/or kV according to patient size. COMPARISON: [facility], CT, CT CHEST W CON, 11/21/2018, 13:53. [facility], CT, CT ANGIO CHEST PE PROTOCOL, 04/25/2019, 4:18. [facility], CR, XR CHEST 1V, 04/25/2019, 3:41. [facility], CR, XR CHEST 1V, 05/06/2019, 4:23. [facility], CT, CT ANGIO CHEST PE PROTOCOL, 05/06/2019, 5:13. FINDINGS: Image quality: Excellent. Pulmonary arteries: Pulmonary arteries are normal in size, and demonstrate no intraluminal filling defects to suggest central pulmonary embolism. Lungs and pleura: There is a cavity in the right upper lobe, most likely secondary to postsurgical change. There is volume loss in the right hemithorax. Right medial and lower lobe nodular infiltrates and consolidation are new consistent with pneumonia. Mild left basilar nodular infiltrates are present. Chronic pleural thickening in the right hemithorax. No pneumothorax. There is severe emphysema. Central and peripheral airways are patent. Mediastinum: Heart size is normal, without pericardial effusion. No mediastinal or hilar adenopathy. Thoracic aorta is normal in caliber and enhancement. Esophagus is normal in caliber, without hiatal hernia. Bones and chest wall: No suspicious bony lesions. There are multiple compression fractures, severe at T3 and T7, mild at T2 and T5. Compression fractures of T2 and T3 are new. There is endplate irregularity at inferior endplate of T2 and superior endplate T3, which is new. Mixed lytic and sclerotic appearance of right posterior 4th rib suspicious for metastatic disease. Multiple old rib fractures are present. Thyroid gland is normal. No axillary or supraclavicular adenopathy. There is a Port-A-Cath in the left anterior chest. Abdomen: Possible left renal mass which is partially visualized. Stable 1.2 cm left adrenal nodule. Visualized upper abdominal solid organs appear normal in the early arterial phase of enhancement. IMPRESSION: 1. No findings to suggest pulmonary embolism. 2. Right medial and lower lobe nodular infiltrates and consolidation consistent with pneumonia. Mild left basilar nodular infiltrates are present, consistent with pneumonia. A differential diagnosis is lymphangitic carcinomatosis. Recommend follow-up to resolution. 3. There is a cavity in the right upper lobe and volume loss in the right hemithorax, unchanged from the last exam. 4. Severe emphysema. 3. Multiple compression fractures in thoracic spine as described. Compression fractures of T2 and T3 are new since the 05/06/2019. T5 and T7 fractures are chronic. 4. New vertebral endplate irregularity involving inferior endplate of T2 and superior endplate of T3, suspicious discitis vertebral osteomyelitis. Recommend clinical correlation. 5. Mixed lytic and sclerotic appearance of right posterior 4th rib suspicious for metastatic disease. 6. Partial visualization of possible left renal mass. Renal ultrasound is suggested for follow-up. 7. Stable 1.2 cm left adrenal nodule. No significant discrepancy with the curriculum manager radiology preliminary report. Dictated by: Avelino Bernard M.D. on 11/03/2019 at 8:02 Approved by: Avelino Bernard M.D. on 11/03/2019 at 8:45
[2019-11-02 21:45] VITALS: BP 99/63; PULSE 86; RESP 24; O2SAT 94
[2019-11-02] MEDS: OXYCODONE IR 5 MG TABLET 20 MG PO (22:32)
[2019-11-02 22:40] VITALS: BP 99/61; PULSE 83; RESP 20; TEMP 37.3; O2SAT 99
[2019-11-03] VITALS (14 sets, daily range): BP systolic 93–102; BP diastolic 50–57; PULSE 55–91; RESP 16–20; TEMP 36.2–37.3; O2SAT 95–100; BMI 16.8
[2019-11-03 00:17] LABS: Add Manual Diff / Slide Review YES; Hematocrit 31.3 % (41-53); Hemoglobin 9.9 g/dL (13.5-17.5); Mean Corpuscular HGB Conc 31.7 % (30-36); Mean Corpuscular Hemoglobin 24.3 PG (26-34); Mean Corpuscular Volume 76.6 fL (80-100); Platelet Count 480 X10^3/uL (150-400); Red Blood Cell Count 4.09 X10^6/uL (4.5-5.9); Red Cell Distribution Width 17.8 % (11.6-14.8); White Blood Cell Count 13.4 X10^3/uL (4.5-11.0)
[2019-11-03 00:23] LABS: Alanine Aminotransferase 28 IU/L (<50); Albumin 3.3 g/dL (3.5-5.0); Albumin Globulin Ratio 0.9 (1.0-2.8); Alkaline Phosphatase 105 U/L (38-126); Aspartate Aminotransferase 35 IU/L (17-59); BUN Creatinine Ratio 23.9 (6-22); Bilirubin Total 0.6 mg/dL (0.2-1.3); Blood Urea Nitrogen 21 mg/dL (9-20); Carbon Dioxide 30 mmol/L (22-32); Chloride 99 mmol/L (98-107); Estimated Glomerular Filt Rate > 60.0 mL/min (>60); Globulin 3.8 g/dL (1.7-4.1); Glucose 155 mg/dL (80-110); HEMOLYSIS < 15 (0-50); Lipase 29 U/L (23-300); Magnesium 1.7 mg/dL (1.6-2.3); Potassium 4.6 mmol/L (3.4-5.1); Sodium 133 mmol/L (137-145); Total Protein 7.1 g/dL (6.3-8.2)
[2019-11-03 00:28] LABS: Lactate (Lactic Acid) 0.9 mmol/L (0.7-2.1)
[2019-11-03 00:35] LABS: NT-proBNP (BNP-Adult 18+) 1520 pg/mL (<125); Troponin I < 0.012 ng/mL (0.01-0.034)
[2019-11-03] MEDS: SODIUM CHLORIDE 0.9% 1,000 ML 1000 ML IV (00:38)
[2019-11-03] MEDS: PIPERACILLIN-TAZO 3.375 GM/50 ML FROZ.PIGGY IV ×4 (00:38→20:26)
[2019-11-03 00:57] LABS: Neutrophils Absolute Manual 13400 /uL (3000-5900); Total Cells Counted 100
[2019-11-03 00:58] LABS: Hypochromasia 1+
[2019-11-03 01:38] LABS: COVID19 -Nasal RAPID Negative (Negative)
--- NOTE | 2019-11-03 06:30 | PC.ADMIT ---
[email or web address] Susannah Edvin Admission Note:Pt arrived to unit 0030. Alert and oriented x3, pt drowsy and nods off frequently. Skin check done with ALISE Munguia. Pt reports pain at tolerable level at this time. Asymptomatic hypotension, WCTM. Voiding to urinal without issues. Transferred via slider board d/t patient weakness. The patient,Yash Davila,64 y/o, was given written information regarding hospital policies, unit procedures and contact persons. Patient's smoking status: Current every day smoker. Vital Signs - 8 hr 11/02/19 22:40 11/03/19 00:53 11/03/19 01:06 Temperature 99.1 F 99.1 F Pulse Rate 83 91 H Respiratory Rate 20 16 Blood Pressure 99/61 102/50 L Pulse Oximetry 99 98 95 11/03/19 01:36 11/03/19 04:53 Temperature 97.5 F L Pulse Rate 71 Respiratory Rate 20 Blood Pressure 96/53 L Pulse Oximetry 99 100
--- NOTE | 2019-11-03 07:47 | PM.HP.1 ---
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 The patient reports that he awoke yesterday to go to the bathroom and began to have significant shortness of breath. Heave then began using his nebulizer without relief prompting him to call EMS. He did not adjust increasing amount of oxygen he was using as he reports he was more focused on trying to breathe. He also endorses subjective fevers and chills and increased cough. He denies headache, chest pain, abdominal pain, nausea, vomiting, dysuria, diarrhea or constipation. Earlier that day, patient received his 1st dose of nivolumab [address] Young of oncology. This therapy had previously been on hold due to possibility of pneumonitis. The patient had a CTA performed in the ED which did not demonstrate PE and demonstrated bilateral lower lobe pneumonia. Patient is being admitted inpatient for treatment of pneumonia. 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) COPD (chronic obstructive pulmonary disease) (Chronic) Depression (Acute) DVT of upper extremity (deep vein thrombosis) (Acute) GERD (gastroesophageal reflux disease) (Acute) Hypothyroid (Chronic) Lung cancer, primary, with metastasis from lung to other site (Chronic) PEG (percutaneous endoscopic gastrostomy) adjustment/replacement/removal (Acute) Peripheral neuropathy (Acute) Port-A-Cath in place (Acute) Tobacco dependence (Acute) Surgical History (Updated 11/03/19 @ 19:33 by Brandi Wood DO) History of lung biopsy (Acute) S/P bronchoscopy (Acute) S/P cervical spinal fusion (Acute) Family & Social History Family History (Updated 11/03/19 @ 19:30 by Brandi Wood DO) Mother Congestive heart failure Father Unknown family medical history Sister Congestive heart failure Social History: household members spouse,caregiver Safety & Behavioral: Feels Safe in Current Yes Environment Been Physically Hurt or No Threatened By a Person Suicidal Ideation Description None Suicide Plan Description No Plan Tobacco & Substance use: Tobacco type cigarettes Smoking Status Current every day smoker, 5 cigarettes per day. Previous 2-3 ppd x 50 years. Alcohol intake Former Substance Use Type Does not use Meds Home Medications and Allergies Home Medications Medication Instructions Recorded Confirmed Type albuterol sulfate [ProAir HFA] 1 puff INH Q6H 03/18/18 11/03/19 History ipratropium-albuterol 3 ml INH Q4HR PRN #40 ml 03/20/18 11/03/19 Rx sertraline [Zoloft] 75 mg PO DAILY 06/23/18 11/03/19 History pregabalin [Lyrica] 50 mg PO TID #90 cap 04/11/19 11/03/19 Rx fentanyl 1 patch TRANSDERMAL Q72H #4 ea 10/19/19 11/03/19 Rx fluticasone propion-salmeterol 1 puff INH BID 30 Days #1 each 10/19/19 11/03/19 Rx [Advair Diskus] tramadol 50 mg PO BID PRN #60 tab 10/19/19 11/03/19 Rx levothyroxine 175 mcg PO DAILY #90 tab 10/26/19 11/03/19 Rx oxycodone 20 mg PO Q4H PRN #180 tab 10/30/19 11/03/19 Rx amoxicillin-pot clavulanate 1 tab PO BID 11/02/19 11/03/19 History fluticasone propionate [Flovent 1 inh INHALATION Q12H 11/02/19 11/03/19 History Diskus] Allergies Allergy/AdvReac Type Severity Reaction Status Date / Time aspirin [ASPIRIN] AdvReac Mild NAUSEA Verified 11/02/19 19:30 Review of Systems Review of Systems Narrative: A 10 system comprehensive review of systems was conducted with the patient and found to be negative except as above in the History of Present Illness. Exam Vital Signs (past 8 hours): - 11/03/19 00:53 11/03/19 01:06 11/03/19 01:36 Temperature 99.1 F 97.5 F L Pulse Rate 91 H 71 Respiratory Rate 16 20 Blood Pressure 102/50 L 96/53 L Pulse Oximetry 98 95 99 11/03/19 04:53 11/03/19 05:58 Temperature Pulse Rate 60 Respiratory Rate 18 Blood Pressure 96/51 L Pulse Oximetry 100 99 Oxygen Delivery Method Nasal Cannula Oxygen Flow Rate 3 Narrative Exam Narrative: General: Elderly frail and cachetic appearing male lying in bed and in no acute distress, appropriately interactive. HEENT: Normocephalic, atraumatic. External ears without defect. Pupils equal, round, and reactive to light and accommodation. Anicteric sclerae, moist conjunctivae, and no lid lag. Oropharynx free of erythema and cobble stoning with moist mucosa. Bitemporal and full body muscle wasting. Neck: Supple with full range of motion. No jugular venous distension. No lymphadenopathy or thyromegaly. Cardiovascular: Regular rate and rhythm without murmurs, rubs, or gallops appreciated. Port-A-Cath left chest. Pulmonary: Diminished throughout with scattered rhonchi. No crackles or wheezes. Normal respiratory effort with no use of accessory muscles. Abdomen: Soft, scaphoid, bowel sounds present, nontender, nondistended. Extremities: No clubbing, cyanosis, or edema. Skin: Normal temperature, turgor, and texture; no rash, ulcers, or subcutaneous nodules appreciated. Neurological: Cranial nerves grossly intact. Psychiatric: Mildly depressed mood and flat affect. Alert and oriented to person, place, and time. Objective Labs Result Diagrams: 11/03/19 08:00 11/03/19 08:00 Labs: Laboratory Results - last 24 hr 11/02/19 11/02/19 11/02/19 23:55 23:55 23:55 WBC 13.4 H RBC 4.09 L Hgb 9.9 L Hct 31.3 L MCV 76.6 L MCH 24.3 L MCHC 31.7 RDW 17.8 H Plt Count 480 H Neut % (Auto) Not Reportable Lymph % (Auto) Not Reportable [place] % (Auto) Not Reportable Eos % (Auto) Not Reportable Baso % (Auto) Not Reportable Lymph # (Auto) Not Reportable [place] # (Auto) Not Reportable Baso # (Auto) Not Reportable Total Counted 100 Seg Neutrophils % 80.0 H Band Neutrophils % 20.0 H Neutrophils # (Manual) 80468 H RBC Morphology See below Hypochromasia 1+ H Sodium 133 L Potassium 4.6 Chloride 99 Carbon Dioxide 30 BUN 21 H Creatinine 0.88 Estimated GFR > 60.0 BUN/Creatinine Ratio 23.9 H Glucose 155 H Lactate 0.9 Calcium 9.0 Magnesium 1.7 Total Bilirubin 0.6 AST 35 ALT 28 Alkaline Phosphatase 105 Troponin I < 0.012 NT-Pro-B Natriuret Pep 1520 H Total Protein 7.1 Albumin 3.3 L Globulin 3.8 Albumin/Globulin Ratio 0.9 L Lipase 29 Nasal Screen MRSA (PCR) COVID-19 PCR 11/03/19 11/03/19 00:07 03:00 WBC RBC Hgb Hct MCV MCH MCHC RDW Plt Count Neut % (Auto) Lymph % (Auto) [place] % (Auto) Eos % (Auto) Baso % (Auto) Lymph # (Auto) [place] # (Auto) Baso # (Auto) Total Counted Seg Neutrophils % Band Neutrophils % Neutrophils # (Manual) RBC Morphology Hypochromasia Sodium Potassium Chloride Carbon Dioxide BUN Creatinine Estimated GFR BUN/Creatinine Ratio Glucose Lactate Calcium Magnesium Total Bilirubin AST ALT Alkaline Phosphatase Troponin I NT-Pro-B Natriuret Pep Total Protein Albumin Globulin Albumin/Globulin Ratio Lipase Nasal Screen MRSA (PCR) Negative for mrsa COVID-19 PCR Negative Assessment & Plan Assessment & Plan narrative: Yash Davila is a 64-year-old male with a past medical history significant for 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 1. Acute postobstructive bacterial pneumonia, present on admission. Active. -Patient presented with abrupt onset shortness of breath, subjective fever and chills, and productive cough. -CTA chest was negative for PE and demonstrated right medial and lower lobe nodular infiltrates and consolidation consistent with pneumonia and mild left basilar nodular infiltrates consistent with pneumonia. Severe emphysema and cavity lesion in the right upper lobe unchanged from the last exam. -Initial WBC 13.4 and procalcitonin 0.16. Continue to monitor WBC and procalcitonin daily. -Ordered complete pneumonia workup including: COVID-19 negative. Strep pneumonia Legionella urine, antigens pending. Respiratory PCR, pending. Sputum culture, pending. Blood culture x2 has no growth to date. -Received in ED and continue Zosyn 3.375 g every 6 hours to cover for Gram-positive, Gram-negative and anaerobes. 2. Acute COPD exacerbation, present on admission. Active. -Patient presented with abrupt onset shortness of breath, subjective fever and chills, and productive cough. -Received methylprednisolone 125 mg IV x1 EN route with EMS. Patient does not have significant wheezing, therefore, will not continue glucocorticoid therapy. -Continue albuterol nebs every 2 hours as needed for shortness of breath or wheezing, DuoNebs every 6 hours as needed for shortness of breath or wheezing, and Advair inhaler 1 puff twice daily. Continue Mucinex 1200 mg twice daily. Continue Acapella 10x/hr to hammersmith helper in sputum excretion. 3. Chronic hypoxemic respiratory failure, present on admission. Stable. -Continue supplemental oxygen as necessary to maintain oxygen saturations 88-92%. Patient is currently on his baseline requirement of 3 L satting in the mid 90s. 4. Metastatic adenocarcinoma of right lung, chronic, present on admission. Stable. -Patient is followed by Dr. Young of oncology. Patient started immunotherapy with Nivolumab on 11/02/2019 and developed abrupt onset shortness of breath later that evening. However, do not believe this is primary care sales representative of pneumonitis as the patient has no eosinophilia, hypoxemia, or imaging evidence of pneumonitis but may still be a possibility as this therapy was previously put on hold due to possibility of pneumonitis. CTA chest demonstrated postobstructive pneumonia as above, multiple compression fractures in thoracic spine, endplate irregularity involving inferior endplate of T2 and superior endplate of T3, mixed lytic and sclerotic appearance of right posterior 4th rib, partial visualization of possible left renal mass, stable 1.2 cm left adrenal nodule. -Continue outpatient follow-up with Dr. Young. 5. Large right upper lobe cavitary lesion, chronic, present on admission. Stable. -Patient has a right upper lobe cavitary lesion of unknown etiology possibly lung abscess versus necrotizing cavitary pneumonia. Patient has previously been worked up for tuberculosis and other infectious etiology by infectious disease SV and bronchoscopy, BAL cultures and PCR were all negative and unrevealing. -CTA chest demonstrated unchanged and stable cavity lesion in the right upper lobe as above. -Continue to monitor closely as an outpatient. 6. History right axillary DVT. -Patient has neuropathy with numbness and shooting pains in right upper extremity which are unclear if this is related to DVT or other cause. Patient was previously treated with which was discontinued due to hemoptysis. Patient is intolerant of aspirin. Patient tolerated therapeutic Lovenox during recent hospitalization and could considered continuing if DVT is present. -Ordered repeat right upper extremity venous Doppler ultrasound to assess for chronic DVT, pending. 7. Chronic right-sided chest and back pain with neuropathy with opiate dependence, secondary to metastatic adenocarcinoma of right lung, present on admission. Stable. -Continued home oxycodone 20 mg every 4 hours as needed, fentanyl patch 25 mcg every 72 hours, pregabalin 50 mg three times daily, and tramadol 50 mg twice daily as needed for chronic pain of right chest pain due to rib metastases. -Patient has previously been referred to palliative care and unclear if this has been pursued. 8. 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 Stable. -TSH normal at 2.06. -Continue home levothyroxine 175 mcg daily. 9. Severe protein malnutrition, chronic, present on admission. Stable. -BMI 16.8. -Previously consulted dietitian and continue previous dietary recommendations. 10. Tobacco dependence, chronic, present on admission. Stable. -Patient reports he smokes 5 cigarettes a day. Patient previously smoked 2-3 packs per day x 50 years. -Ordered Nicoderm patch as needed for nicotine withdrawal. -Counseled patient on smoking cessation. Code status: DNR/DNI VTE prophylaxis: Enoxaparin, SCDs Patient is admitted under inpatient status with expected length of stay greater than 2 midnights due to severity of presenting symptoms, risk of adverse event, and complexity of treatment plan.
[2019-11-03 08:21] LABS: Add Manual Diff / Slide Review NO; Basophils Absolute Auto 0 /uL (0-100); Basophils Percent Auto 0.3 % (0-2); Eosinophils Absolute Auto 0 /uL (0-450); Hematocrit 29.6 % (41-53); Hemoglobin 9.8 g/dL (13.5-17.5); Lymphocytes Absolute Auto 600 /uL (1100-4500); Lymphocytes Percent Auto 5.7 % (25-40); Mean Corpuscular HGB Conc 33.2 % (30-36); Mean Corpuscular Hemoglobin 25.3 PG (26-34); Mean Corpuscular Volume 76.3 fL (80-100); Monocytes Absolute Auto 200 /uL (0-900); Monocytes Percent Auto 1.5 % (3-14); Neutrophils Absolute Auto 9700 /uL (1500-7000); Neutrophils Percent Auto 92.5 % (50-75); Platelet Count 421 X10^3/uL (150-400); Red Blood Cell Count 3.88 X10^6/uL (4.5-5.9); White Blood Cell Count 10.5 X10^3/uL (4.5-11.0)
[2019-11-03 08:22] LABS: Procalcitonin 0.15 ng/mL (<0.5)
[2019-11-03 08:44] LABS: Alanine Aminotransferase 26 IU/L (<50); Albumin 3.1 g/dL (3.5-5.0); Albumin Globulin Ratio 0.8 (1.0-2.8); Alkaline Phosphatase 92 U/L (38-126); Aspartate Aminotransferase 33 IU/L (17-59); BUN Creatinine Ratio 23.5 (6-22); Bilirubin Total 0.5 mg/dL (0.2-1.3); Blood Urea Nitrogen 19 mg/dL (9-20); Carbon Dioxide 31 mmol/L (22-32); Chloride 101 mmol/L (98-107); Estimated Glomerular Filt Rate > 60.0 mL/min (>60); Globulin 3.8 g/dL (1.7-4.1); Glucose 147 mg/dL (80-110); HEMOLYSIS < 15 (0-50); Magnesium 1.9 mg/dL (1.6-2.3); Potassium 4.6 mmol/L (3.4-5.1); Sodium 137 mmol/L (137-145); Total Protein 6.9 g/dL (6.3-8.2)
[2019-11-03 09:28] LABS: TSH w/ Reflex to FT4 2.06 uIU/mL (0.47-4.68)
[2019-11-03] MEDS: OXYCODONE IR 10 MG TABLET 20 MG PO ×4 (09:29→23:48)
[2019-11-03] MEDS: PREGABALIN 50 MG CAPSULE PO ×3 (09:29→20:26)
[2019-11-03] MEDS: fentaNYL 25 MCG/PATCH TOP (09:29)
[2019-11-03] MEDS: ENOXAPARIN 40 MG/0.4 ML SYRINGE SUBCUT (09:30)
[2019-11-03] MEDS: LEVOTHYROXINE 100 MCG TABLET PO (09:30)
[2019-11-03] MEDS: SERTRALINE 25 MG TABLET 75 MG PO (09:30)
[2019-11-03] MEDS: LEVOTHYROXINE 75 MCG TABLET PO (09:30)
[2019-11-03] MEDS: guaiFENesin ER 600 MG TAB 1200 MG PO ×2 (09:31→20:26)
[2019-11-03] MEDS: SODIUM CHLORIDE 0.9% FLUSH 10 ML IV ×2 (13:19→20:28)
--- NOTE | 2019-11-03 13:43 | CM.IDA ---
Addendum entered by JOSH Sosa 11/03/19 14:33: Correction: Patient is not COVID-19 +. COVID-19 Neg confirmed 11.03.19 at 00:07 Original Note: Initial DCP Assessment Note Patient is a 64 yo male, resident of [place]. Patient presents w/ SOB now being treated for community acquired pneumonia, COVID-19 +. PCP is not listed Payer: [employer]/[facility] Reviewed chart. This admission is patient's 8th visit to ER/Acute care floor in approx 6 months. Patient is a daily smoker, home oxygen dependent w/ h/o metastatic stage IV Lung CA followed by Dr Young. Patient was last admitted 10.24.19 and had DC home w/ cg Lakisha and spouse w/ [facility]. Notes indicate patient is appropriate for palliative vs hospice approach to care but patient refuses at this time. Patient also has been resistant to HH care, stating he doesn't need it since cg Lakisha provides all ch[facility] care. Met w/patient and introduced role. Patient confirms he continues to get full care from his cg Lakisha, whom lives w/he and his Freya. Patient does not anticipate any DC needs although states he would be open to HH this time if it were suggested. PT Remy is familiar with patient from recent admissions and plans to see patient this afternoon for eval. P: DC likely return home w/cg and spouse via private auto, r/o need for HH JOSH Sosa
--- NOTE | 2019-11-03 14:50 | PT-IP ANOTE ---
Per EMR, This admission is patient's 8th visit to ER/Acute care floor in approx 6 months. Patient is a daily smoker, home oxygen dependent w/ h/o metastatic stage IV Lung CA followed by Dr Young. This PT evaluated him for last 2 admissions and know that pt is mostly bed bound at home d/t poor activity tolerance. He has been refusing palliative, hospice and skilled care and dependent on spouse and CG assistance. He also declined HH service multiple times when he went home. Spoke to pt at 1445pm and he stated I dont need therapy and im doing fine and at my baseline. D/C PT order.
--- NOTE | 2019-11-03 14:59 | OT.IPNOTE ---
Pt refusing OT eval and states, I am fine and do not need anything. Therefore discharge OT eval orders.
[2019-11-03] MEDS: TRAMADOL 50 MG TABLET PO (20:27)
[2019-11-03] MEDS: FLUTICASONE/SALMETEROL 250/50 60 PUFF DISKUS INH (20:28)
[2019-11-03 21:53] LABS: Adenovirus Not Detected (Not Detect); Bordetella pertussis Not Detected (Not Detect); Chlamydophila pneumoniae Not Detected (Not Detect); Coronavirus 229E Not Detected (Not Detect); Coronavirus HKU1 Not Detected (Not Detect); Coronavirus NL 63 Not Detected (Not Detect); Coronavirus OC43 Not Detected (Not Detect); Human Metapneumovirus Not Detected (Not Detect); Human Rhinovirus/Enterovirus Not Detected (Not Detect); Influenza A Not Detected (Not Detect); Influenza B Not Detected (Not Detect); Mycoplasma pneumoniae Not Detected (Not Detect); Parainfluenza Virus 1 Not Detected (Not Detect); Parainfluenza Virus 2 Not Detected (Not Detect); Parainfluenza Virus 3 Not Detected (Not Detect); Parainfluenza Virus 4 Not Detected (Not Detect); Respiratory Syncytial Virus Not Detected (Not Detect)
[2019-11-04] MEDS: PIPERACILLIN-TAZO 3.375 GM/50 ML FROZ.PIGGY IV ×2 (01:34→08:07)
[2019-11-04 05:19] VITALS: BP 91/50; PULSE 60; RESP 16; TEMP 37; O2SAT 91
[2019-11-04] MEDS: OXYCODONE IR 10 MG TABLET 20 MG PO ×3 (05:27→13:19)
[2019-11-04 05:45] VITALS: O2SAT 98
[2019-11-04] MEDS: LEVOTHYROXINE 100 MCG TABLET PO (05:45)
[2019-11-04] MEDS: LEVOTHYROXINE 75 MCG TABLET PO (05:45)
[2019-11-04 08:00] VITALS: BP 106/57; PULSE 66; RESP 16; TEMP 36.9; O2SAT 100
[2019-11-04 08:40] LABS: Add Manual Diff / Slide Review NO; Basophils Absolute Auto 100 /uL (0-100); Basophils Percent Auto 0.7 % (0-2); Eosinophils Absolute Auto 200 /uL (0-450); Eosinophils Percent Auto 1.2 % (2-4); Hematocrit 32.4 % (41-53); Hemoglobin 10.5 g/dL (13.5-17.5); Lymphocytes Absolute Auto 1700 /uL (1100-4500); Lymphocytes Percent Auto 13.2 % (25-40); Mean Corpuscular HGB Conc 32.3 % (30-36); Mean Corpuscular Hemoglobin 25.1 PG (26-34); Mean Corpuscular Volume 77.9 fL (80-100); Monocytes Absolute Auto 700 /uL (0-900); Monocytes Percent Auto 5.7 % (3-14); Neutrophils Absolute Auto 10200 /uL (1500-7000); Neutrophils Percent Auto 79.2 % (50-75); Platelet Count 481 X10^3/uL (150-400); Red Blood Cell Count 4.16 X10^6/uL (4.5-5.9); Red Cell Distribution Width 18.5 % (11.6-14.8); White Blood Cell Count 12.9 X10^3/uL (4.5-11.0)
[2019-11-04 09:02] LABS: Procalcitonin 0.17 ng/mL (<0.5)
[2019-11-04] MEDS: FLUTICASONE/SALMETEROL 250/50 60 PUFF DISKUS INH (09:26)
[2019-11-04] MEDS: TRAMADOL 50 MG TABLET PO (09:33)
[2019-11-04] MEDS: PREGABALIN 50 MG CAPSULE PO (09:33)
[2019-11-04] MEDS: SERTRALINE 25 MG TABLET 75 MG PO (09:34)
[2019-11-04] MEDS: ENOXAPARIN 40 MG/0.4 ML SYRINGE SUBCUT (09:34)
[2019-11-04] MEDS: guaiFENesin ER 600 MG TAB 1200 MG PO (09:34)
[2019-11-04] MEDS: SODIUM CHLORIDE 0.9% FLUSH 10 ML IV (09:34)
--- NOTE | 2019-11-04 10:58 | P.DS_ITS ---
History of Present Illness History of Present Illness Chief complaint: SOB Narrative: Written by myself Dr. 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 The patient reports that he awoke yesterday to go to the bathroom and began to have significant shortness of breath. Heave then began using his nebulizer without relief prompting him to call EMS. He did not adjust increasing amount of oxygen he was using as he reports he was more focused on trying to breathe. He also endorses subjective fevers and chills and increased cough. He denies headache, chest pain, abdominal pain, nausea, vomiting, dysuria, diarrhea or constipation. Earlier that day, patient received his 1st dose of nivolumab [address] Young of oncology. This therapy had previously been on hold due to possibility of pneumonitis. The patient had a CTA performed in the ED which did not demonstrate PE and demonstrated bilateral lower lobe pneumonia. Patient is being admitted inpatient for treatment of pneumonia. Discharge Providers Provider Date of admission: 11/03/19 01:32 Discharge Date: 11/05/19 Consults: 11/03/19 00:55 Consult to Physical Therapy Evaluate & Treat Comment: Physician Instructions: Evaluate and Treat 11/03/19 07:27 Consult to Occupational Therapy Evaluate & Treat Comment: Physician Instructions: Evaluate and treat Consult to Physical Therapy Evaluate & Treat Comment: Physician Instructions: Evaluate and Treat Discharge provider: Brandi Wood DO Summary Hospital Course Discharge Diagnosis: 1. Acute postobstructive bacterial pneumonia, present on admission. Resolving. 2. Acute COPD exacerbation, present on admission. Resolved. 3. Chronic hypoxemic respiratory failure, present on admission. Active. 4. Stage IV metastatic adenocarcinoma of right lung on palliative immunotherapy, chronic, present on admission. Active. 5. Large right upper lobe cavitary lesion, chronic, present on admission. Stable. 6. History right axillary DVT. 7. Chronic right-sided chest and back pain and neuropathy with opiate dependence, secondary to metastatic adenocarcinoma of right lung, present on admission. Stable. 8. 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 Stable. 9. Severe protein malnutrition, chronic, present on admission. Stable. 10. Tobacco dependence, chronic, present on admission. Stable. 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 1. Acute postobstructive bacterial pneumonia, present on admission. Resolving. -Patient presented with abrupt onset shortness of breath, subjective fever and chills, and productive cough. -CTA chest was negative for PE and demonstrated right medial and lower lobe nodular infiltrates and consolidation consistent with pneumonia and mild left basilar nodular infiltrates consistent with pneumonia. Severe emphysema and cavity lesion in the right upper lobe unchanged from the last exam. -Initial WBC 13.4 and procalcitonin 0.16. Continued to monitor WBC and procal citonin daily. WBC trended down then increased likely due to glucocorticoid, methylprednisolone given en route with EMS. -Ordered complete pneumonia workup including: COVID-19 negative. Strep pneumo kenyetta Legionella urine antigens, pending. Respiratory PCR negative. Sputum culture not obtained. Blood culture x2 have no growth to date. -Continued Zosyn 3.375 g every 6 hours to treat Gram-positive, Gram-negative and anaerobes and discharged on Augmentin twice daily for 7 additional days to compl ete treatment course. May need to consider restarting suppressive antibiotic therapy for postobstructive pneumonia. 2. Acute COPD exacerbation, present on admission. Resolved. -Patient presented with abrupt onset shortness of breath, subjective fever and chills, and productive cough. -Received methylprednisolone 125 mg IV x1 EN route with EMS. Patient does not have significant wheezing, therefore, will not continue glucocorticoid therapy. -Continued albuterol nebs every 2 hours as needed for shortness of breath or wheezing, DuoNebs every 6 hours as needed for shortness of breath or wheezing, and Advair inhaler 1 puff twice daily. Continued Mucinex 1200 mg twice daily. 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 3. Chronic hypoxemic respiratory failure, present on admission. Active. -Continued supplemental oxygen as necessary to maintain oxygen saturations 88- 92%. Patient is currently on his baseline requirement of 3 L satting in the mid 90s. -The patient had a significant drop in oxygenation to 70s and required non- rebreather for 20 minutes to recover. Respiratory therapy evaluated patient for oxygen requirement with ambulation/activity and recommended increasing oxygen concentrator at home to 6 L with all activity for which the patient maintained oxygen saturations 89%. Patient's hypoxemia is due to lung cancer, large right cavitary lesion, and severe emphysema and he has likely been desaturating with activity for a long time as he reports longstanding significant shortness of breath with activity. Dr. Young recommended palliative care and/or hospice when appropriate for symptomatic treatment of hypoxemia and intractable cancer pain which the patient is now open to. 4. Stage IV metastatic adenocarcinoma of right lung on palliative immunotherapy, chronic, present on admission. Active. -Patient is followed by Dr. Young of oncology. Patient started palliative immunotherapy with Nivolumab on 11/02/2019 and developed abrupt onset shortness of breath later that evening. However, do not believe this is community engagement representative of pneumonitis as the patient has no eosinophilia, hypoxemia, or imaging evidence of pneumonitis but may still be a possibility as this therapy was previously put on hold due to possibility of pneumonitis. CTA chest demonstrated postobstructive pneumonia as above, multiple compression fractures in thoracic spine, endplate irregularity involving inferior endplate of T2 and superior endplate of T3, mixed lytic and sclerotic appearance of right posterior 4th rib, partial visualization of possible left renal mass, stable 1.2 cm left adrenal nodule. Recommended continued outpatient follow-up with Dr. Young as previously scheduled. 5. Large right upper lobe cavitary lesion, chronic, present on admission. Stable. -Patient has a right upper lobe cavitary lesion of unknown etiology possibly francoise g abscess versus necrotizing cavitary pneumonia. Patient has previously been worked up for tuberculosis and other infectious etiology by infectious disease SV and bronchoscopy, BAL cultures and PCR were all negative and unrevealing. -CTA chest demonstrated unchanged and stable cavity lesion in the right upper lobe as above. -Recommended continued outpatient monitoring. 6. History right axillary DVT. -Patient has neuropathy with numbness and shooting pains in right upper extremity which are unclear if this is related to DVT or other cause. Patient was previously treated with which was discontinued due to hemoptysis. Patient is intolerant of aspirin. Patient tolerated therapeutic Lovenox during recent hospitalization and could considered continuing if DVT is present. -Repeat right upper extremity venous Doppler ultrasound was negative for DVT. 7. Chronic right-sided chest and back pain and neuropathy with opiate dependence, secondary to metastatic adenocarcinoma of right lung, present on admission. Stable. -Continued home oxycodone 20 mg every 4 hours as needed, fentanyl patch 25 mcg every 72 hours, pregabalin 50 mg three times daily, and tramadol 50 mg twice daily as needed for chronic pain of right chest pain due to rib metastases. -Patient has previously been referred to palliative care and unclear if this has been pursued. Recommended referral to palliative care and hospice informational visit to provide information on services when appropriate for which the patient is open to. 8. 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 Stable. -TSH normal at 2.06. -Continued home levothyroxine 175 mcg daily. 9. Severe protein malnutrition, chronic, present on admission. Stable. -BMI 16.8. -Previously consulted dietitian and continued previous dietary recommendations. 10. Tobacco dependence, chronic, present on admission. Stable. -Patient reports he smokes 5 cigarettes a day. Patient previously smoked 2-3 packs per day x 50 years. -Counseled patient on smoking cessation. Exam Vital Signs (past 8 hours): - 11/04/19 05:19 11/04/19 05:45 11/04/19 08:00 Temperature 98.6 F 98.4 F Pulse Rate 60 66 Respiratory Rate 16 16 Blood Pressure 91/50 L 106/57 L Pulse Oximetry 91 98 100 Oxygen Delivery Method Nasal Cannula Oxygen Flow Rate 2 Narrative Exam Narrative: General: Older frail and cachetic appearing male lying in bed and in no acute distress, appears older than stated age and chronically ill, appropriately interactive. HEENT: Normocephalic, atraumatic. External ears without defect. Pupils equal, round, and reactive to light and accommodation. Anicteric sclerae, moist conjunctivae, and no lid lag. Oropharynx free of erythema and cobble stoning with moist mucosa. Bitemporal and full body muscle wasting. Neck: Supple with full range of motion. No jugular venous distension. No lymphadenopathy or thyromegaly. Cardiovascular: Regular rate and rhythm without murmurs, rubs, or gallops appreciated. Port-A-Cath left chest. Pulmonary: Diminished throughout with scattered rhonchi. No crackles or wheezes. Normal respiratory effort with no use of accessory muscles. Abdomen: Soft, scaphoid, bowel sounds present, nontender, nondistended. Extremities: No clubbing, cyanosis, or edema. Skin: Normal temperature, turgor, and texture; no rash, ulcers, or subcutaneous nodules appreciated. Neurological: Cranial nerves grossly intact. Psychiatric: Mildly depressed mood and flat affect. Alert and oriented to person, place, and time. Objective Labs Result Diagrams: 11/04/19 08:25 11/03/19 08:00 Labs: Laboratory Results - last 24 hr 11/03/19 11/04/19 11/04/19 00:07 08:25 08:25 WBC 12.9 H RBC 4.16 L Hgb 10.5 L Hct 32.4 L MCV 77.9 L MCH 25.1 L MCHC 32.3 RDW 18.5 H Plt Count 481 H Neut % (Auto) 79.2 H Lymph % (Auto) 13.2 L [place] % (Auto) 5.7 Eos % (Auto) 1.2 L Baso % (Auto) 0.7 Neut # (Auto) 46826 H Lymph # (Auto) 1700 [place] # (Auto) 700 Eos # (Auto) 200 Baso # (Auto) 100 Procalcitonin 0.17 Chlamy pneumoniae PCR Not detected Adenovirus (PCR) Not detected B.parapertussis DNA PCR Not detected Coronavirus OC43 (PCR) Not detected Coronavirus HKU1 (PCR) Not detected Coronavirus 229E (PCR) Not detected Coronavirus NL63 (PCR) Not detected Human Metapneumovir PCR Not detected Influenza Type A (PCR) Not detected Influenza Type B (PCR) Not detected M. 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 You have postobstructive pneumonia due to your lung cancer. You have been prescribed Augmentin twice daily for 7 days to treat your pneumonia. The blood clot in your right arm has resolved and is no longer present. Your blood pressure remains low due to your pain medications. Please try to stay to your well hydrated. Highly recommend palliative care for symptom control and hospice when appropriate and will arrange for a referral to palliative care and and informational visit with hospice. Please follow-up with your oncologist, Dr. Young, as previously scheduled. Discharge orders & Medications Prescriptions: New guaifenesin [Mucus Relief ER] 600 mg Tablet Extended Release 12hr 1,200 mg PO BID PRN (Reason: thick and excessive secretions) Qty: 10 RF: 0 Continued fluticasone propion-salmeterol [Advair Diskus] 250-50 mcg/dose Blister With Device 1 puff INH BID 30 Days Qty: 1 RF: 0 amoxicillin-pot clavulanate 875-125 mg Tablet 1 tab PO BID Qty: 14 RF: 0 sertraline [Zoloft] 50 mg Tablet 75 mg PO DAILY RF: 0 pregabalin [Lyrica] 50 mg Capsule 50 mg PO TID Qty: 90 RF: 1 fentanyl 25 mcg/hr Patch 72 Hour 1 patch TRANSDERMAL Q72H Qty: 4 RF: 0 tramadol 50 mg Tablet 50 mg PO BID PRN (Reason: pain) Qty: 60 RF: 0 oxycodone 20 mg Tablet 20 mg PO Q4H PRN (Reason: pain, cancer-related) Qty: 180 RF: 0 Flovent Diskus 100 mcg/actuation Blister With Device 1 inh INHALATION Q12H RF: 0 albuterol sulfate [ProAir HFA] 90 MCG/PUFF HFA aerosol inhaler 1 puff INH Q6H RF: 0 ipratropium-albuterol 0.5 mg-3 mg(2.5 mg base)/3 mL Solution For Nebulization 3 ml INH Q4HR PRN (Reason: sob/wheezing) Qty: 40 RF: 0 levothyroxine 150 mcg Tablet 175 mcg PO DAILY Qty: 90 RF: 0 Follow up/Referrals: Thomas Young MD [Physician] - As previously scheduled Diet/Activity/Treatments Diet: Diet as Tolerated Diet comment: Diet comment: high protein diet, with Enlive twice daily Activity: Activity as tolerated with walker at all times in physical and occupational therapy Oxygen: 3 L continuous supplemental oxygen at rest and 6L with am bulation/activity Visit Report/Discharge Packet Instructions: DI for Pneumonia -- Adult, DI for Prescription Opioid Use, Amoxicillin and Clavulanic Acid Visit Report Forms: Patient Portal/API, Stroke Signs & Symptoms Discharges patient from system. Discharge Date/Time: 11/04/19 15:40
[2019-11-04 12:00] VITALS: O2SAT 98
[2019-11-04] MEDS: ALBUTEROL/IPRATROPIUM 3 ML AMPUL INH (13:04)
[2019-11-04 13:05] VITALS: O2SAT 98
--- NOTE | 2019-11-04 14:48 | PC.NURSE ---
Day Shift Note Plans to d/c this afternoon per MD orders. in room at this time. Pt had episode of desaturating after lunch, pt on 3L NC at rest with SpO2 94-98%, desatted to 88% when sitting up at side of bed and O2 increased to 6L NC to sats of 95%, pt walked into bathroom FWW. On return from bathroom pt WOB much increased, pt color dusky, RR in the 40s, SpO2 70%. Increased O2 to 10L NC and placed on nonbreather at 15L. Pt took about 45 min to fully recover. RT called for breathing treatment, O2 had been titrated down to 6L NC prior to receiving breathing treatment. Pt and pt's expressed concerns over discharging home, instructed on use of home oxygen, clustering activity, and following up with hospice informational visit. Pt and pt's wished to speak with Dr. Wood, Dr. Wood in room. RT in room and assessed pt's oxygen needs when ambulating - see their charting. Pt now resting, with SpO2 98% on 6L NC. Reports still feeling nervous about going home. Awaiting to go over D/C instructions until after pt done on BSC. Nahid-cath has been deaccessed and peripheral IV d/c'd.
--- NOTE | 2019-11-04 15:12 | RT ---
CALLED [facility], SPOKE TO [employer]. EXPLAINED PT NEED FOR O2 LITER FLOW INCREASE W/ AMBULATION. PT DEMOGRAPHICS AND R&E DOCUMENTATION FAXED TO HIM AT [phone] PER HIS REQUEST. [employer] REQUESTED PT TO BE SENT HOME W/ ONE [employer] E-CYLINDER, AND [employer] WILL CONTACT PT FOR DELIVERY OF O2 TANKS/CONCENTRATOR UPGRADE ON WEDNESDAY. BOTH ADDRESS AND CONTACT NUMBERS FOR PT VERIFIED WITH PT'S FAMILY MEMBER. DR. BECERRA UPDATED.
--- NOTE | 2019-11-04 15:27 | CM.DPNOTE ---
DC Note Dr Wood has discharged patient this afternoon and patient cleared by therapy team- he is at functional baseline. Dr Nina has shared w/this FIRE OBSERVER that patient is a good candidate for Hospice care and this has been explained in detail to patient; that he can chose to spend innumerable hours in the hospital or chose to be at home w/hospice care to manage his symptoms and chronic dyspnea. Patient and spouse now agreeable to hospice. Requested info visit from [facility] and spoke w/ Litzy -[facility] is now at capacity and they will not complete an info visit unless they have openings. Then placed call to [facility], had to request CB from data governance consultant nurse from answering service. Faxed clinical records for referral and review. Awaiting CB, unsure if [facility] will be able to return call before this FIRE OBSERVER ends today's shift (?) Patient may need to DC home w/cg and spouse (resume home O2) and await call from [facility] from there. JOSH Sosa
--- NOTE | 2019-11-04 18:32 | DI.US.S_ITS ---
PROCEDURE: US PERIP VENOUS UP EXTREM RT INDICATIONS: HISTORY CHRONIC DVT TECHNIQUE: Real-time imaging, as well as color and pulse Doppler interrogation, was performed of the right upper extremity deep veins from the inferior neck to the antecubital fossa. COMPARISON: [facility], US, US [facility] VENOUS UP EXTREM RT, 04/07/2019, 8:47. [facility], CT, CT ANGIO CHEST PE PROTOCOL, 11/02/2019, 21:41. FINDINGS: The internal jugular vein, visualized portions of the subclavian vein, axillary, and brachial veins are free of intraluminal thrombus. Where physically possible, the veins are normally compressible. Color and pulse Doppler demonstrate normal intraluminal flow, with expected phasicity and pulsatility. Additional scanning of the cephalic and basilic veins of the superficial system demonstrate normal compressibility, without thrombus. IMPRESSION: Negative for deep venous thrombosis. The previously seen thrombus is no longer seen. Dictated by: Kelton Camilo M.D. on 11/04/2019 at 9:17 Approved by: Kelton Camilo M.D. on 11/04/2019 at 9:18
--- NOTE | 2019-11-06 13:50 | CM.DPNOTE ---
Hospice Call from Suki at [facility] inquiring about the msg and clinicals faxed over the weekend for Hospice info visit. Suki requested d/c summary and SW note to confirm that discussion about Hospice happened with family prior to calling for Info visit. MELISSA Mejia kindly faxed d/c summary and last SW note to [facility] and they will follow up with pt and spouse to provide information and determine if they are willing to sign consents to begin Hospice services. JOSH Blank
--- NOTE | 2019-11-06 13:53 | CM.DPC ---
DCP cont: Faxed IPHONE DEVELOPER note and discharge summary to [facility] at as requested. Fax confirmation scanned in. Jackie Ovalle, Care Clinical Research Tech
== END 2019-11-04 15:40 | disposition hospice, home (50) | DRG 139 ==
LOC: ED 11-03 00:54 → ICU 11-03 08:05
PROVIDERS: Internal Medicine; Admitting Provider Family Medicine; Emergency Provider Emergency Medicine; Referring Provider Emergency Medicine; Visit Provider Family Medicine
DX: J15.9 Unspecified bacterial pneumonia (principal); J44.1 Chronic obstructive pulmonary disease with (acute) exacerbation; J96.11 Chronic respiratory failure with hypoxia; Z99.81 Dependence on supplemental oxygen; C34.11 Malignant neoplasm of upper lobe, right bronchus or lung; C79.51 Secondary malignant neoplasm of bone; E43 Unspecified severe protein-calorie malnutrition; J44.0 Chronic obstructive pulmonary disease with (acute) lower respiratory infection; Z68.1 Body mass index [BMI] 19.9 or less, adult; R91.1 Solitary pulmonary nodule; E03.2 Hypothyroidism due to medicaments and other exogenous substances; T45.1X5S Adverse effect of antineoplastic and immunosuppressive drugs, sequela; G89.3 Neoplasm related pain (acute) (chronic); F17.210 Nicotine dependence, cigarettes, uncomplicated; F32.9 Major depressive disorder, single episode, unspecified; Z86.718 Personal history of other venous thrombosis and embolism; Z66 Do not resuscitate; Z79.891 Long term (current) use of opiate analgesic; Z11.59 Encounter for screening for other viral diseases; Z95.828 Presence of other vascular implants and grafts
CPT/HCPCS: 36415; 36591; 71275; 80053; 83605; 83690; 83735; 83880; 84145; 84443; 84484; 85025; 87040; 87633; 87635; 87797; 87899; 93971; 94618; 94640; 96361; 96365; 96413; 99215; 99285; A9270; J1642; J1650; J2543; J9299; Q9967